=== PATIENT | female | born 1935 | race Caucasian/White ===

== ENCOUNTER → 2016-03-11 | Outpatient (REF) | payer MEDICARE ==
[~2016-03-11] MED LIST: /ESOM40CA OR; /WARF5TA OR; ACET65TA OR; ALBUTEROL INH; ALTA5CAP OR; AMLO10TA2 PO; ASPI81TA83 OR; COUM2.5T11 PO; IBUP600T OR; IBUP600T26 PO; LEVO100T OR; LEVO125T3 PO; LIDO5DIS36 TD; METF500T PO; METF500T4 OR; NORVASE PO; OXYBPOW OR; PERC5TAB6 PO; PERC5TAB8 OR; PERC7.5T8 OR; RAMI5CA PO; SING10TA31 OR; SYMB80AE IN; TYLE325T5 PO; XOPENEX; XOPENEX INH; nexium PO
[2016-03-11 18:28] LABS: PERCENT SATURATION 26.4 % (13.2-37.4)
== END ==
LOC: M LAB REF 16:29
PROVIDERS: ATTEND Internal Medicine
DX: R74.8 Abnormal levels of other serum enzymes (principal)

== ENCOUNTER 2017-08-20 19:57 | Inpatient (IN) | payer MEDICARE ==
[2017-08-20] MEDS: IPRATROPIUM 0.5MG/ALBUTEROL 2.5MG INH SOL UD 3ML (DUONEB)(J7620) NEB ×4 (17:59→20:00)
[2017-08-20 18:26] LABS: ABG BASE EXCESS 2.2 (-2.0-2.0); ABG PARTIAL PRESSURE O2 63.9 mmHg (75.0-100.0); ABG STANDARD HCO3 26.3 MEQ/L (22.0-26.0); ABG TOTAL CO2 27.1 MEQ/L (23.0-31.0); ABG pH (ARTERIAL) 7.464 UNITS (7.350-7.450)
[2017-08-20 18:47] LABS: BASO % 0.3 % (0.0-1.0); EOS # 0.1 10^3/uL (0.0-0.50); EOS % 1.8 % (0.0-3.0); HEMATOCRIT 31.5 % (36.0-47.0); HEMOGLOBIN 9.4 g/dl (12.0-15.5); LYMPH # 0.8 10^3/uL (1.5-4.5); LYMPH % 11.5 % (24.0-44.0); MEAN CORPUSCULAR HEMOGLOBIN 24.6 pg (27.0-33.0); MEAN CORPUSCULAR HGB CONC 29.8 g/dl (32.0-36.5); MEAN CORPUSCULAR VOLUME 82.5 fl (80.0-96.0); MONO # 0.6 10^3/uL (0.0-0.8); NEUTROPHILS # 5.5 10^3/uL (1.8-7.7); NEUTROPHILS % 76.4 % (36.0-66.0); PLATELET COUNT, AUTOMATED 115 10^3/uL (150-450); RED BLOOD COUNT 3.82 10^6/uL (4.00-5.40); RED CELL DISTRIBUTION WIDTH 16.9 % (11.5-14.5); WHITE BLOOD COUNT 7.2 10^3/uL (4.0-10.0)
[2017-08-20 18:57] LABS: ANION GAP 10 MEQ/L (8-16); BLOOD UREA NITROGEN 9 MG/DL (7-18); CALCIUM LEVEL 8.3 MG/DL (8.8-10.2); CARBON DIOXIDE LEVEL 28 MEQ/L (21-32); CHLORIDE LEVEL 101 MEQ/L (98-107); CPK CREATINE PHOSPHOKINASE 96 U/L (26-192); CREATININE FOR GFR 0.71 MG/DL (0.55-1.30); GLOMERULAR FILTRATION RATE > 60.0 (>32); GLUCOSE, FASTING 99 MG/DL (70-100); POTASSIUM SERUM 3.6 MEQ/L (3.5-5.1); SODIUM LEVEL 139 MEQ/L (136-145); TROPONIN I < 0.02 NG/ML (< 0.10)
[2017-08-20 18:58] LABS: CK-MB VALUE MASS 1.2 NG/ML (<3.6); MB/CK RELATIVE INDEX 1.25 (< OR =4); NT-PRO BNP 849 PG/ML (<450)
[2017-08-20 19:02] LABS: LACTIC ACID SEPSIS PROTOCOL 2.1 MMOL/L (0.4-2.0)
[2017-08-20] MEDS ORDERED: ACETAMINOPHEN TAB 650MG DOSE (2X325MG) PO (20:00)
[2017-08-20] MEDS ORDERED: IPRATROPIUM 0.5MG/ALBUTEROL 2.5MG INH SOL UD 3ML (DUONEB)(J7620) NEB (20:00)
[2017-08-20] MEDS ORDERED: PANTOPRAZOLE 40MG TAB (PROTONIX) PO (20:00)
[2017-08-20] MEDS ORDERED: DEXTROSE 50% 50 ML SYRINGE IV (20:15)
[2017-08-20] MEDS ORDERED: GLUCOSE 4 GM CHEW TABLET PO (20:15)
[2017-08-20] MEDS ORDERED: GLUCAGON FOR INJ 1 MG VIAL (J1610) SC (20:15)
[2017-08-20] MEDS: HumaLOG INSULIN (NovoLOG) PER UNIT SC (23:18)
[2017-08-20] MEDS: methylPREDNISolone INJ 40 MG/1 ML VIAL (J2920) IV (23:43)
[2017-08-20] MEDS: cefTRIAXone SOD 1 GM in D5W MINI-BAG PLUS 50 ML IV (23:45)
[2017-08-20] MEDS: SENOKOT S TAB PO (23:45)
[2017-08-20] MEDS: DOXYCYCLINE HYCLATE 100 MG TAB PO (23:45)
[2017-08-20] MEDS: AMITRIPTYLINE 25 MG TAB PO (23:45)
[2017-08-21] MEDS: LEVOTHYROXINE 150MCG TABLET (0.15MG) PO (05:38)
[2017-08-21] MEDS: methylPREDNISolone INJ 40 MG/1 ML VIAL (J2920) IV ×3 (05:38→20:09)
[2017-08-21 06:11] LABS: BEDSIDE GLUCOSE 175 MG/DL (83-110)
[2017-08-21] MEDS: amLODIPine 10 MG TAB PO (07:43)
[2017-08-21] MEDS: HumaLOG INSULIN (NovoLOG) PER UNIT SC ×4 (07:43→21:06)
[2017-08-21] MEDS: RAMIPRIL 5 MG CAP PO (07:43)
[2017-08-21] MEDS: ENOXAPARIN 40 MG/0.4 ML SYRINGE (J1650) SC (07:43)
[2017-08-21] MEDS: DOXYCYCLINE HYCLATE 100 MG TAB PO ×2 (07:43→20:09)
[2017-08-21] MEDS: SENOKOT S TAB PO ×2 (07:43→20:09)
[2017-08-21] MEDS: IPRATROPIUM 0.5MG/ALBUTEROL 2.5MG INH SOL UD 3ML (DUONEB)(J7620) NEB ×4 (08:46→20:14)
[2017-08-21 11:50] LABS: BEDSIDE GLUCOSE 170 MG/DL (83-110)
[2017-08-21 12:05] LABS: HEMATOCRIT 29.4 % (36.0-47.0); HEMOGLOBIN 8.8 g/dl (12.0-15.5); MEAN CORPUSCULAR HEMOGLOBIN 24.2 pg (27.0-33.0); MEAN CORPUSCULAR HGB CONC 29.9 g/dl (32.0-36.5); MEAN CORPUSCULAR VOLUME 80.8 fl (80.0-96.0); PLATELET COUNT, AUTOMATED 100 10^3/uL (150-450); RED BLOOD COUNT 3.64 10^6/uL (4.00-5.40); WHITE BLOOD COUNT 6.7 10^3/uL (4.0-10.0)
[2017-08-21 17:25] LABS: BEDSIDE GLUCOSE 170 MG/DL (83-110)
[2017-08-21] MEDS: AMITRIPTYLINE 25 MG TAB PO (20:09)
[2017-08-21] MEDS: cefTRIAXone SOD 1 GM in D5W MINI-BAG PLUS 50 ML IV (20:10)
[2017-08-21 21:01] LABS: BEDSIDE GLUCOSE 205 MG/DL (83-110)
[2017-08-22] MEDS: methylPREDNISolone INJ 40 MG/1 ML VIAL (J2920) IV ×3 (05:55→21:29)
[2017-08-22] MEDS: LEVOTHYROXINE 150MCG TABLET (0.15MG) PO (05:55)
[2017-08-22 06:24] LABS: HEMATOCRIT 27.6 % (36.0-47.0); HEMOGLOBIN 8.6 g/dl (12.0-15.5); MEAN CORPUSCULAR HEMOGLOBIN 24.6 pg (27.0-33.0); MEAN CORPUSCULAR HGB CONC 31.2 g/dl (32.0-36.5); MEAN CORPUSCULAR VOLUME 79.1 fl (80.0-96.0); PLATELET COUNT, AUTOMATED 107 10^3/uL (150-450); RED BLOOD COUNT 3.49 10^6/uL (4.00-5.40); RED CELL DISTRIBUTION WIDTH 17.2 % (11.5-14.5)
[2017-08-22 06:42] LABS: ANION GAP 11 MEQ/L (8-16); BLOOD UREA NITROGEN 14 MG/DL (7-18); CALCIUM LEVEL 8.5 MG/DL (8.8-10.2); CARBON DIOXIDE LEVEL 27 MEQ/L (21-32); CHLORIDE LEVEL 103 MEQ/L (98-107); CREATININE FOR GFR 0.83 MG/DL (0.55-1.30); GLOMERULAR FILTRATION RATE > 60.0 (>32); GLUCOSE, FASTING 148 MG/DL (70-100); POTASSIUM SERUM 3.5 MEQ/L (3.5-5.1); SODIUM LEVEL 141 MEQ/L (136-145)
[2017-08-22] MEDS: IPRATROPIUM 0.5MG/ALBUTEROL 2.5MG INH SOL UD 3ML (DUONEB)(J7620) NEB ×4 (07:10→19:15)
[2017-08-22] MEDS: DOXYCYCLINE HYCLATE 100 MG TAB PO ×2 (07:38→21:28)
[2017-08-22] MEDS: SENOKOT S TAB PO ×2 (07:38→21:28)
[2017-08-22] MEDS: amLODIPine 10 MG TAB PO (07:38)
[2017-08-22] MEDS: RAMIPRIL 5 MG CAP PO (07:38)
[2017-08-22] MEDS: ENOXAPARIN 40 MG/0.4 ML SYRINGE (J1650) SC (07:39)
[2017-08-22] MEDS: HumaLOG INSULIN (NovoLOG) PER UNIT SC ×4 (07:40→21:28)
[2017-08-22 11:59] LABS: BEDSIDE GLUCOSE 195 MG/DL (83-110)
[2017-08-22 17:00] LABS: BEDSIDE GLUCOSE 166 MG/DL (83-110)
[2017-08-22 20:47] LABS: BEDSIDE GLUCOSE 167 MG/DL (83-110)
[2017-08-22] MEDS: AMITRIPTYLINE 25 MG TAB PO (21:28)
[2017-08-22] MEDS: cefTRIAXone SOD 1 GM in D5W MINI-BAG PLUS 50 ML IV (21:29)
[2017-08-23] MEDS: methylPREDNISolone INJ 40 MG/1 ML VIAL (J2920) IV (05:27)
[2017-08-23] MEDS: LEVOTHYROXINE 150MCG TABLET (0.15MG) PO (05:27)
[2017-08-23 06:10] LABS: BEDSIDE GLUCOSE 183 MG/DL (83-110)
[2017-08-23 06:26] LABS: HEMATOCRIT 26.3 % (36.0-47.0); MEAN CORPUSCULAR HEMOGLOBIN 24.5 pg (27.0-33.0); MEAN CORPUSCULAR HGB CONC 30.4 g/dl (32.0-36.5); MEAN CORPUSCULAR VOLUME 80.4 fl (80.0-96.0); RED BLOOD COUNT 3.27 10^6/uL (4.00-5.40); RED CELL DISTRIBUTION WIDTH 17.2 % (11.5-14.5); WHITE BLOOD COUNT 7.2 10^3/uL (4.0-10.0)
[2017-08-23 06:42] LABS: ANION GAP 9 MEQ/L (8-16); BLOOD UREA NITROGEN 15 MG/DL (7-18); CALCIUM LEVEL 8.1 MG/DL (8.8-10.2); CARBON DIOXIDE LEVEL 27 MEQ/L (21-32); CHLORIDE LEVEL 106 MEQ/L (98-107); CREATININE FOR GFR 0.82 MG/DL (0.55-1.30); GLOMERULAR FILTRATION RATE > 60.0 (>32); GLUCOSE, FASTING 181 MG/DL (70-100); POTASSIUM SERUM 3.8 MEQ/L (3.5-5.1); SODIUM LEVEL 142 MEQ/L (136-145)
[2017-08-23 07:27] LABS: PLATELET COUNT, AUTOMATED 86 10^3/uL (150-450)
[2017-08-23] MEDS: IPRATROPIUM 0.5MG/ALBUTEROL 2.5MG INH SOL UD 3ML (DUONEB)(J7620) NEB ×2 (07:27→11:39)
[2017-08-23 07:28] LABS: IMMATURE PLATELET FRACTION % 13.1 % (0.0-9.6)
[2017-08-23] MEDS: HumaLOG INSULIN (NovoLOG) PER UNIT SC ×2 (08:06→12:21)
[2017-08-23] MEDS: DOXYCYCLINE HYCLATE 100 MG TAB PO (08:07)
[2017-08-23] MEDS: RAMIPRIL 5 MG CAP PO (08:07)
[2017-08-23] MEDS: amLODIPine 10 MG TAB PO (08:07)
[2017-08-23] MEDS: SENOKOT S TAB PO (08:07)
[2017-08-23 08:58] LABS: FERRITIN 12 NG/ML (8-252); IRON (FE) 16 UG/DL (50-170); TOTAL IRON BINDING CAPACITY 403 UG/DL (250-450)
[2017-08-23 11:28] LABS: BEDSIDE GLUCOSE 130 MG/DL (83-110)
[2017-08-23 12:13] LABS: HEMATOCRIT 28.5 % (36.0-47.0); HEMOGLOBIN 8.5 g/dl (12.0-15.5)
[2017-08-23] MEDS: FERROUS GLUCONATE 324 MG TAB PO (12:20)
[2017-08-23 12:44] LABS: VITAMIN B12 LEVEL 1172 PG/ML (247-911)
[2017-08-23 12:46] LABS: FOLATE 10.4 NG/ML (>5.4)
[2017-08-23] MEDS ORDERED: methylPREDNISolone INJ 40 MG/1 ML VIAL (J2920) IV (17:00)
== END 2017-08-23 15:37 | disposition home or self-care (01) | DRG 189 ==
LOC: M ED 19:57 → M ED INP 22:09 → M MSPAV 22:49
DX: J96.01 Acute respiratory failure with hypoxia (principal); J44.1 Chronic obstructive pulmonary disease with (acute) exacerbation; E87.2 Acidosis; K21.9 Gastro-esophageal reflux disease without esophagitis; E11.9 Type 2 diabetes mellitus without complications; I10 Essential (primary) hypertension; E03.9 Hypothyroidism, unspecified; D64.9 Anemia, unspecified; Z79.899 Other long term (current) drug therapy; Z88.8 Allergy status to other drugs, medicaments and biological substances; Z91.040 Latex allergy status; Z87.891 Personal history of nicotine dependence

== ENCOUNTER → 2017-10-07 | Outpatient (REF) | payer MEDICARE ==
[2017-10-07 18:48] LABS: IRON (FE) 342 UG/DL (50-170); PERCENT SATURATION 95.5 % (13.2-45.0); TOTAL IRON BINDING CAPACITY 358 UG/DL (250-450)
== END ==
LOC: M LAB REF 17:41
DX: D50.9 Iron deficiency anemia, unspecified (principal)
CPT/HCPCS: 83550

== ENCOUNTER 2017-10-26 07:35 | Day surgery (SDC) | payer MEDICARE ==
[2017-10-26] MEDS ORDERED: NS 1,000 ML IV (07:45)
[2017-10-26] MEDS ORDERED: PROPOFOL 200 MG/20 ML VIAL As Ordered (07:52)
[2017-10-26] MEDS ORDERED: LIDOCAINE 2% INJ 100 MG/5 ML SDV (FOR ANES.) As Ordered (07:54)
== END 2017-10-26 10:01 | disposition home or self-care (01) ==
LOC: M OPP 07:35
DX: K64.0 First degree hemorrhoids (principal); D12.0 Benign neoplasm of cecum; K57.30 Diverticulosis of large intestine without perforation or abscess without bleeding; D50.9 Iron deficiency anemia, unspecified; K22.8 Other specified diseases of esophagus; K31.89 Other diseases of stomach and duodenum; J44.9 Chronic obstructive pulmonary disease, unspecified; K21.9 Gastro-esophageal reflux disease without esophagitis; I10 Essential (primary) hypertension; R01.1 Cardiac murmur, unspecified; K62.5 Hemorrhage of anus and rectum; E03.9 Hypothyroidism, unspecified; E11.9 Type 2 diabetes mellitus without complications; M54.5 Low back pain; Z79.899 Other long term (current) drug therapy; Z79.84 Long term (current) use of oral hypoglycemic drugs; Z88.8 Allergy status to other drugs, medicaments and biological substances; Z96.653 Presence of artificial knee joint, bilateral; Z90.710 Acquired absence of both cervix and uterus; Z87.891 Personal history of nicotine dependence; Z87.448 Personal history of other diseases of urinary system
CPT/HCPCS: 45380

== ENCOUNTER 2018-06-15 06:10 | Day surgery (SDC) | payer MEDICARE ==
[~2018-06-15] VITALS: Ht 160 cm; Wt 92.5 kg
[~2018-06-15 06:10] MED LIST changes: -/ESOM40CA OR; -/WARF5TA OR; +ACETAMINOPHEN 325 MG TAB PO PRN; +ACID1CAP5 PO; +AMIT25TA PO; -AMLO10TA2 PO; +AMLO10TA5 PO; +ATOR1TAB19 PO; +COUM1TAB17 OR; -COUM2.5T11 PO; +COUM2.5T17 PO; +DOXY100T PO; +FERR32TA PO; +IBUP-1022 PO; -IBUP600T26 PO; +LEVO112T2 PO; -LEVO125T3 PO; +LEVO125T4 PO; +LEVO150T7 PO; -LIDO5DIS36 TD; +LIDO5DIS41 TD; -METF500T PO; +METF500T13 PO; +MYRB25TA PO; +NEXI1CAP3 OR; +NEXI40CA PO; +PERC5TAB12 PO; -PERC5TAB6 PO; +PRED10TA2 PO; +RAMI1CAP24 PO; -RAMI5CA PO; +VENTAER INH
[2018-06-15] MEDS ORDERED: LIDOCAINE 2% W/EPIN INJ 20ML **PRES FREE As Ordered ONE (06:39)
[2018-06-15] MEDS ORDERED: SODIUM BICARBONATE 8.4% INJ 50MEQ 50 ML VIAL As Ordered ONE (06:40)
[2018-06-15] MEDS ORDERED: TOBRADEX OPHTH OINT 3.5 GM As Ordered ONE (06:40)
[2018-06-15] MEDS ORDERED: MIDAZOLAM INJ 2 MG/2 ML VIAL (J2250) As Ordered ONE (07:00)
[2018-06-15] MEDS ORDERED: LIDOCAINE 3.5 % 1ML OPHTH TOPICAL GEL OU ONE (07:00)
[2018-06-15] MEDS ORDERED: fentaNYL 100 MCG/2 ML INJECTION (J3010) As Ordered ONE (07:01)
[2018-06-15] MEDS ORDERED: POVIDONE-IODINE 5% OPHTH PREP SOL 30ML As Ordered ONE (07:24)
[2018-06-15] MEDS ORDERED: TRIMETHOBENZAMIDE 300 MG CAP PO PRN (09:00)
[2018-06-15 09:24] VITALS: BP 147/67
--- NOTE | 2018-07-06 06:48 | RO ---
DATE OF PROCEDURE: 06/15/2018 PREOPERATIVE DIAGNOSIS: Dermatochalasis both upper lids. POSTOPERATIVE DIAGNOSIS: Dermatochalasis both upper lids. PROCEDURE: Blepharoplasty both upper lids. SURGEON: Dr. Austin Rashid FLORAL DESIGN TEACHER: None. ANESTHESIA: Local, IV standby. COMPLICATIONS: None. INDICATION: Heavy lids interfering with daily activities. DESCRIPTION OF PROCEDURE: The patient was brought to the operating room and laid in supine position. Upper face was prepped and draped in a sterile fashion for bilateral upper lid surgery. Both upper lids were then marked with the help of a sterile marker along the lines of intended skin excision. Both upper lids were then infiltrated with 2% lidocaine with 1:100,000 epinephrine. Attention was first diverted to the right eye where the premarked skin was excised using electrocautery and Kelsi scissors. Hemostasis was obtained as needed with the help of electrocautery. Deeper dissection was carried out and medial and lateral fat pads were isolated and then excised. Their stump was cauterized. The skin was then closed using #6-0 nylon suture. The exact same procedure was repeated for the left upper lid. At the end of the case, TobraDex ointment was applied and ice packs were applied and the patient was returned to the recovery room where detailed postoperative instructions were given.
== END 2018-06-15 09:30 | disposition home or self-care (01) ==
LOC: M SDC 06:10 → EEVIPCON 07:30 → M SDC 09:30
PROVIDERS: ATTEND Ophthalmology
DX: H02.831 Dermatochalasis of right upper eyelid (principal); H02.834 Dermatochalasis of left upper eyelid; I10 Essential (primary) hypertension; E11.42 Type 2 diabetes mellitus with diabetic polyneuropathy; K21.9 Gastro-esophageal reflux disease without esophagitis; J44.9 Chronic obstructive pulmonary disease, unspecified; J96.11 Chronic respiratory failure with hypoxia; D50.9 Iron deficiency anemia, unspecified; E03.9 Hypothyroidism, unspecified; R01.1 Cardiac murmur, unspecified; I35.0 Nonrheumatic aortic (valve) stenosis; M12.9 Arthropathy, unspecified; M54.5 Low back pain; J45.909 Unspecified asthma, uncomplicated; E66.01 Morbid (severe) obesity due to excess calories; Z68.41 Body mass index [BMI] 40.0-44.9, adult; Z88.1 Allergy status to other antibiotic agents; Z91.040 Latex allergy status; Z79.899 Other long term (current) drug therapy; Z79.84 Long term (current) use of oral hypoglycemic drugs; Z96.653 Presence of artificial knee joint, bilateral; Z99.81 Dependence on supplemental oxygen; Z90.710 Acquired absence of both cervix and uterus; Z78.0 Asymptomatic menopausal state; Z96.1 Presence of intraocular lens; Z98.41 Cataract extraction status, right eye; Z98.42 Cataract extraction status, left eye
CPT/HCPCS: 15823; 88302; J2250; J3010

== ENCOUNTER 2019-02-15 14:44 | Emergency (ER) | payer MEDICARE ==
[~2019-02-15] VITALS: Ht 160 cm; Wt 90.9 kg
[~2019-02-15 14:44] MED LIST changes: -ACETAMINOPHEN 325 MG TAB PO PRN
[2019-02-15] MEDS ORDERED: ALBUTEROL SULFATE 2.5 MG/0.5 ML INH NEB SOLN INH ONE (15:15)
[2019-02-15] MEDS ORDERED: methylPREDNISolone INJ 125 MG/2 ML VIAL (J2930) IV ONE (15:15)
[2019-02-15] MEDS ORDERED: ONDANSETRON 4MG/2ML VIAL (J2405) IV ONE ×2 (15:15→16:15)
[2019-02-15] MEDS ORDERED: NS 1,000 ML IV ONE (15:15)
[2019-02-15] MEDS ORDERED: IPRATROPIUM 0.5MG/ALBUTEROL 2.5MG INH SOL UD 3ML (DUONEB)(J7620) NEB ONE (15:15)
--- NOTE | 2019-02-15 15:31 | REP ---
Clinical: Shortness of breath . Comparison: 07/29/2017 . Findings: The mediastinum and cardiac silhouette are stable and within normal limits for portable technique. The lung shields are clear without acute consolidation, effusion, or pneumothorax. Skeletal structures are intact. Impression: No acute cardiopulmonary process appreciated. Electronically Signed by Kahlil Cabrera MD 02/15/2019 03:23 P
[2019-02-15 16:18] LABS: BASO % 0.2 % (0.0-1.0); EOS % 0.2 % (0.0-3.0); HEMATOCRIT 31.9 % (36.0-47.0); HEMOGLOBIN 9.9 g/dl (12.0-15.5); LYMPH # 1.3 10^3/uL (1.5-5.0); LYMPH % 12.8 % (24.0-44.0); MEAN CORPUSCULAR HEMOGLOBIN 31.2 pg (27.0-33.0); MEAN CORPUSCULAR VOLUME 100.6 fl (80.0-96.0); MONO % 10.5 % (0.0-5.0); NEUTROPHILS # 7.4 10^3/uL (1.5-8.5); NEUTROPHILS % 75.6 % (36.0-66.0); RED BLOOD COUNT 3.17 10^6/uL (4.00-5.40); WHITE BLOOD COUNT 9.7 10^3/uL (4.0-10.0)
[2019-02-15 16:21] LABS: PLATELET COUNT, AUTOMATED 92 10^3/uL (150-450)
[2019-02-15] MEDS ORDERED: ISOVUE-370 76% 100ML VIAL (Q9967) As Ordered ONE (16:22)
[2019-02-15 16:29] LABS: INR 1.48; PROTHROMBIN TIME 17.6 SECONDS (11.8-14.0)
[2019-02-15 16:30] LABS: PARTIAL THROMBOPLASTIN TIME 31.5 SECONDS (25.0-38.4)
[2019-02-15 16:43] LABS: ALBUMIN 2.4 GM/DL (3.2-5.2); ALT/SGPT 32 U/L (12-78); AMYLASE 30 U/L (25-115); BILIRUBIN,DIRECT 1.1 MG/DL (0.0-0.2); BILIRUBIN,TOTAL 2.4 MG/DL (0.2-1.0); CK-MB VALUE MASS 1.7 NG/ML (<3.6); CPK CREATINE PHOSPHOKINASE 91 U/L (26-192); LIPASE 72 U/L (73-393); MB/CK RELATIVE INDEX 1.87 (< OR =4); TOTAL PROTEIN 6.3 GM/DL (6.4-8.2); TROPONIN I < 0.02 NG/ML (< 0.10)
[2019-02-15] MEDS ORDERED: PANTOPRAZOLE 40MG INJ (PROTONIX) (C9113) IV ONE (16:45)
[2019-02-15] MEDS ORDERED: SYNT125T PO (16:58)
[2019-02-15] MEDS ORDERED: MYRB25TA PO (16:58)
[2019-02-15] MEDS ORDERED: AMIT25TA PO (16:58)
--- NOTE | 2019-02-15 16:59 | REP ---
Clinical: Abdominal pain with nausea. Technique: Axial contrast enhanced images from the lung bases to the pubic symphysis using 100 ml Isovue 370 intravenous contrast material coronal and sagittal re-formations. Comparison: None. Findings: Nodular liver contour with small amount of perihepatic fluid is consistent with cirrhosis. Spleen, pancreas, bilateral adrenal glands and kidneys are normal. Evidence of prior cholecystectomy. Evaluation of the enteric system demonstrates mucosal thickening to the sigmoid colon suggesting infectious/inflammatory colitis and correlation is recommended. No bowel obstruction. No free air to suggest perforation. Normal terminal ileum and appendix are identified in the right lower quadrant. Pelvis demonstrates normal bladder and evidence of prior hysterectomy. No adenopathy. Atherosclerotic changes of the aorta and vasculature noted without aneurysm or dissection. Musculoskeletal structures demonstrate degenerative changes. Lung bases are clear. Impression: 1. Mucosal thickening to the sigmoid colon and small amount of ascites suggesting infectious/inflammatory colitis and correlation is recommended. 2. Cirrhosis and evidence for early portal venous hypertension. Electronically Signed by Kahlil Cabrera MD 02/15/2019 04:50 P
[2019-02-15] MEDS ORDERED: NS 500 ML IV ONE (17:00)
[2019-02-15] MEDS ORDERED: OCTREOTIDE ACETATE 1,200 MCG in NS 238.8 ML IV SCH (17:15)
[2019-02-15] MEDS: PANTOPRAZOLE SODIUM 40 MG in D5W 50 ML IV SCH ×2 (17:56→17:58)
[2019-02-15 18:30] VITALS: BP 127/51
--- NOTE | 2019-02-15 19:44 | ECGEPIP ---
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
== END 2019-02-15 18:40 | disposition short-term general hospital (02) ==
LOC: EDBD 14:44 → M ED 14:44
DX: K92.2 Gastrointestinal hemorrhage, unspecified (principal); K74.60 Unspecified cirrhosis of liver; R19.7 Diarrhea, unspecified; E11.9 Type 2 diabetes mellitus without complications; I10 Essential (primary) hypertension; J44.9 Chronic obstructive pulmonary disease, unspecified; R00.0 Tachycardia, unspecified; Z79.51 Long term (current) use of inhaled steroids; Z79.84 Long term (current) use of oral hypoglycemic drugs; Z79.899 Other long term (current) drug therapy; Z87.891 Personal history of nicotine dependence; Z88.1 Allergy status to other antibiotic agents; Z91.040 Latex allergy status
CPT/HCPCS: 71045; 74177; 80047; 80076; 82150; 82550; 82553; 83605; 83690; 84484; 85025; 85049; 85055; 85610; 85730; 86850; 86900; 86901; 87040; 93005; 93041; 94640; 96374; 96375; 99285; C9113; J2354; J2405; J2930; Q9967

== ENCOUNTER 2019-02-23 08:13 | Emergency (ER) | payer MEDICARE ==
[~2019-02-23 08:13] MED LIST changes: +SYNT125T PO
[2019-02-23] MEDS ORDERED: OMEP-221 PO (08:36)
[2019-02-23] MEDS ORDERED: AMOX875T2 PO (08:36)
[2019-02-23] MEDS ORDERED: LACT10SO3 PO (08:36)
[2019-02-23 09:03] LABS: BASO % 0.2 % (0.0-1.0); EOS # 0.1 10^3/uL (0.0-0.5); HEMATOCRIT 27.5 % (36.0-47.0); HEMOGLOBIN 8.3 g/dl (12.0-15.5); LYMPH # 0.9 10^3/uL (1.5-5.0); LYMPH % 21.9 % (24.0-44.0); MEAN CORPUSCULAR HEMOGLOBIN 30.4 pg (27.0-33.0); MEAN CORPUSCULAR HGB CONC 30.2 g/dl (32.0-36.5); MEAN CORPUSCULAR VOLUME 100.7 fl (80.0-96.0); MONO # 0.7 10^3/uL (0.0-0.8); MONO % 16.7 % (0.0-5.0); NEUTROPHILS # 2.4 10^3/uL (1.5-8.5); NEUTROPHILS % 58.7 % (36.0-66.0); RED BLOOD COUNT 2.73 10^6/uL (4.00-5.40); WHITE BLOOD COUNT 4.1 10^3/uL (4.0-10.0)
[2019-02-23 09:11] LABS: BLOOD UREA NITROGEN 9 MG/DL (7-18); CALCIUM LEVEL 8.4 MG/DL (8.8-10.2); CARBON DIOXIDE LEVEL 20 MEQ/L (21-32); CHLORIDE LEVEL 109 MEQ/L (98-107); CREATININE FOR GFR 0.85 MG/DL (0.55-1.30); GLOMERULAR FILTRATION RATE > 60.0 (>32); GLUCOSE, FASTING 92 MG/DL (70-100); POTASSIUM SERUM 3.6 MEQ/L (3.5-5.1); SODIUM LEVEL 141 MEQ/L (136-145)
[2019-02-23] MEDS: IPRATROPIUM 0.5MG/ALBUTEROL 2.5MG INH SOL UD 3ML (DUONEB)(J7620) NEB SCH ×3 (09:30→12:16)
--- NOTE | 2019-02-23 09:48 | REP ---
Clinical: Dyspnea. Technique: PA and lateral. Comparison: 02/10 and 07/10. Findings: Increased markings suggest the possibility of bronchitis / viral pneumonia along with small basilar pleural reactions. Mediastinum and cardiac silhouette normal. No pneumothorax. Skeletal structures intact. Impression: Cannot exclude bronchitis and small pleural reactions. Electronically Signed by Kahlil Cabrera MD 02/23/2019 09:39 A
[2019-02-23 10:00] LABS: PLATELET COUNT, AUTOMATED 53 10^3/uL (150-450)
[2019-02-23 10:29] LABS: INFLUENZA A AMPLIFICATION NEGATIVE (NEGATIVE); INFLUENZA B AMPLIFICATION NEGATIVE (NEGATIVE)
[2019-02-23 10:51] LABS: CK-MB VALUE MASS 7.5 NG/ML (<3.6); CPK CREATINE PHOSPHOKINASE 134 U/L (26-192); NT-PRO BNP 806 PG/ML (<450); TROPONIN I 1.32 NG/ML (< 0.10)
[2019-02-23 12:37] LABS: CK-MB VALUE MASS 9.1 NG/ML (<3.6); MB/CK RELATIVE INDEX 6.55 (< OR =4)
[2019-02-23 13:45] VITALS: BP 146/65
--- NOTE | 2019-02-24 14:23 | ECGEPIP ---
[facility] - ED Test Date: 2019-02-23 Pat Name: EDWARD GALVAN Department: Room: - Gender: Female Post Closer: SHON : 1935 Requested By: Curt Loza Order Number: [id number] Reading MD: Artem Dowell Measurements Intervals [place] Rate: 78 P: -24 [place]: 152 QRS: -17 QRSD: 82 T: 29 QT: 392 QTc: 448 Interpretive Statements SINUS RHYTHM WITH SINUS ARRHYTHMIA Low QRS complex voltage in the precordial leads Subtle ST-T wave abnormalities when compared to tracing done 02-15-19 Electronically Signed on 02-24-2019 14:23:40 EST by Artem Dowell
--- NOTE | 2019-02-24 14:45 | ECGEPIP ---
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
== END 2019-02-23 13:55 | disposition short-term general hospital (02) ==
LOC: M ED 08:13 → EDBD 08:13 → M ED 13:55
DX: I21.4 Non-ST elevation (NSTEMI) myocardial infarction (principal); E11.9 Type 2 diabetes mellitus without complications; I10 Essential (primary) hypertension; J44.9 Chronic obstructive pulmonary disease, unspecified; E07.9 Disorder of thyroid, unspecified; K21.9 Gastro-esophageal reflux disease without esophagitis; D50.9 Iron deficiency anemia, unspecified; K74.60 Unspecified cirrhosis of liver; Z99.81 Dependence on supplemental oxygen; Z79.899 Other long term (current) drug therapy; Z79.890 Hormone replacement therapy; Z88.1 Allergy status to other antibiotic agents; Z91.040 Latex allergy status; F17.210 Nicotine dependence, cigarettes, uncomplicated

== ENCOUNTER 2019-03-22 19:10 | Inpatient (IN) | payer MEDICARE ==
[~2019-03-22] VITALS: Ht 160 cm; Wt 93.6 kg
[~2019-03-22 19:10] MED LIST changes: +AMOX875T2 PO; +LACT10SO3 PO; +OMEP-221 PO
[2019-03-22] MEDS ORDERED: ASPI81TA26 (19:30)
[2019-03-22] MEDS ORDERED: METO1TAB87 PO (19:30)
[2019-03-22] MEDS ORDERED: XIFA550T PO ×2 (19:30→23:29)
--- NOTE | 2019-03-22 20:42 | REPVR ---
PROCEDURE INFORMATION: Exam: CT Head Without Contrast Exam date and time: 03/22/2019 8:24 PM Age: 84 years old Clinical indication: Syncope and collapse TECHNIQUE: Imaging protocol: Computed tomography of the head without contrast. Radiation optimization: All CT scans at this facility use at least one of these dose optimization techniques: automated exposure control; mA and/or kV adjustment per patient size (includes targeted exams where dose is matched to clinical indication); or iterative reconstruction. COMPARISON: No relevant prior studies available. FINDINGS: Brain: Bilateral basal ganglia calcifications. The lamar-white differentiation is maintained. No hemorrhage. No edema.There are mild periventricular and subcortical lucencies consistent with chronic microvascular ischemic changes. Ventricles: Ventricles and sulci are prominent consistent with age appropriate parenchymal volume loss. Bones/joints: Unremarkable. No acute fracture. Sinuses: Visualized sinuses are unremarkable. No fluid levels. Mastoid air cells: Visualized mastoid air cells are well aerated. Orbits: Bilateral cataract surgery. Soft tissues: Unremarkable. IMPRESSION: No acute intracranial abnormality. Chronic microvascular ischemic changes. Electronically signed by: Serafin Velásquez On 03/22/2019 20:42:21 PM
[2019-03-22 21:05] LABS: LYMPH # 0.3 10^3/uL (1.5-5.0); LYMPH % 7.1 % (24.0-44.0); MEAN CORPUSCULAR HEMOGLOBIN 27.3 pg (27.0-33.0); MEAN CORPUSCULAR VOLUME 94.1 fl (80.0-96.0); MONO # 0.2 10^3/uL (0.0-0.8); MONO % 4.8 % (0.0-5.0); NEUTROPHILS # 3.5 10^3/uL (1.5-8.5); NEUTROPHILS % 87.6 % (36.0-66.0); WHITE BLOOD COUNT 3.9 10^3/uL (4.0-10.0)
[2019-03-22 21:12] LABS: HEMATOCRIT 20.7 % (36.0-47.0); PLATELET COUNT, AUTOMATED 51 10^3/uL (150-450)
[2019-03-22 21:36] LABS: BLOOD UREA NITROGEN 13 MG/DL (7-18); CARBON DIOXIDE LEVEL 25 MEQ/L (21-32); CHLORIDE LEVEL 107 MEQ/L (98-107); CK-MB VALUE MASS 1.2 NG/ML (<3.6); CPK CREATINE PHOSPHOKINASE 83 U/L (26-192); CREATININE FOR GFR 0.88 MG/DL (0.55-1.30); GLOMERULAR FILTRATION RATE > 60.0 (>32); GLUCOSE, FASTING 150 MG/DL (70-100); MB/CK RELATIVE INDEX 1.45 (< OR =4); POTASSIUM SERUM 3.2 MEQ/L (3.5-5.1); SODIUM LEVEL 139 MEQ/L (136-145); THYROID STIMULATING HORMONE 0.096 uIU/ML (0.358-3.740); TROPONIN I 0.03 NG/ML (< 0.10)
[2019-03-22 21:48] LABS: INR 1.37; PROTHROMBIN TIME 16.6 SECONDS (11.8-14.0)
[2019-03-22 21:49] LABS: PARTIAL THROMBOPLASTIN TIME 36.2 SECONDS (25.0-38.4)
[2019-03-22] MEDS ORDERED: ASPI-161 PO (23:29)
[2019-03-22] MEDS ORDERED: INCR1INH INH (23:29)
[2019-03-22] MEDS ORDERED: OMEP-221 PO (23:29)
[2019-03-22] MEDS ORDERED: ALBU83IN INH (23:29)
--- NOTE | 2019-03-22 23:58 | IPNPDOC ---
Text Note Date of Service The patient was seen on 03/22/19. NOTE I examined the patient on Mar 22 at 1157PM. VS,Tessy, I+O VS, Phie, I+O Laboratory Tests 03/22/19 20:53 Vital Signs Date Time Temp Pulse Resp B/P (MAP) Pulse Ox O2 Delivery O2 Flow Rate FiO2 03/22/19 23:10 92 03/22/19 23:09 136/61 (86) 03/22/19 22:55 20 95 Nasal Cannula 3.0 03/22/19 19:23 97.8 PAVAN CHAVEZ MD Mar 22, 2019 23:58
[2019-03-23] VITALS (16 sets, daily range): BP systolic 119–155; BP diastolic 57–83
[2019-03-23 00:44] LABS: MAGNESIUM LEVEL 1.5 MG/DL (1.8-2.4)
[2019-03-23] MEDS ORDERED: ALBUTEROL SULFATE 2.5 MG/0.5 ML INH NEB SOLN INH PRN (00:45)
[2019-03-23] MEDS ORDERED: ALBUTEROL 90 MCG/ACT 8GM HFA INHALER INH PRN (00:45)
[2019-03-23 01:00] LABS: FERRITIN 18 NG/ML (8-252); IRON (FE) 23 UG/DL (50-170); PERCENT SATURATION 6.7 % (13.2-45.0); TOTAL IRON BINDING CAPACITY 345 UG/DL (250-450)
[2019-03-23] MEDS ORDERED: POTASSIUM CHLORIDE 10 MEQ SR TABLET PO ONE (01:00)
[2019-03-23] MEDS: KCL 10MEQ/100ML SWI (KRUN) 10 MEQ in IV 1 EA IV SCH ×2 (01:52→03:04)
[2019-03-23] MEDS: ATORVASTATIN 10 MG TAB PO SCH ×2 (01:52→20:57)
[2019-03-23] MEDS: AMITRIPTYLINE 25 MG TAB PO SCH ×2 (02:11→20:57)
--- NOTE | 2019-03-23 03:59 | HPEPDOC ---
[facility] Medical History & Physical Date of Admission Mar 22, 2019 Date of Service: Mar 22, 2019 Primary Care Physician: Jr Barrow Collins Attending Physician: PAVAN CHAVEZ MD History and Physical CHIEF COMPLAINT: Shortness of breath HISTORY OF PRESENT ILLNESS: Marielena is a 84-year-old female with past medical history of NSTEMI four weeks ago (02/23/19), GI bleed last month (02/15/19), liver cirrhosis, COPD, type 2 diabetes, hypertension, and hypothyroidism who presented to the emergency department this evening via EMS with the chief complaints of shortness of breath, vomiting and dizziness. Patient has experienced exertional dyspnea for the past 4-5 days, and yesterday, developed dizziness and intermittent diplopia while at rest. She has had 2 episodes of vomiting today while in route to the ED, but is unsure if there is any hematemesis or coffee ground emesis since it was dark in the ambulance and she did not examine the vomit. Patient also fell around 6 PM this evening while at home, landing initially onto her right forehead and elbow. She is unsure if she lost consciousness. Patient has been hypotensive today, with SBPs in the 80s. She also has accompanying sternal chest pressure that is exacerbated with minimal movement. She endorses recent black-colored stools. She is not on any anticoagulation medication, but does take an 81 mg daily, aspirin for antiplatelet coverage after being treated for the NSTEMI at [facility], [place], operated by [facility] this month. She is postmenopausal and denies any recent vaginal bleeding or hematuria. Around the time of her GI bleed and nstemi, she admits to a diminished appetite, but has returned to a full diet since. She denies having these symptoms at any time previously. Patient was extensively worked up at [facility] for GI bleed from and was in the process of establishing with gastroenterology (Dr. Rico) as outpatient. She is also setting up with cardiology as outpatient (Dr. Carpenter's office) because of the recent nstemi. At the time of her discharge from [facility], [place], operated by [facility] this month, she had significant changes made to her medication regimen: Amlodipine was stopped, metoprolol tartrate 12.5 mg twice a day was started, albuterol nebulizer was started, and the 81 mg daily. Aspirin was also started. In the emergency department, patient was found to be pancytopenic (WBC 3.9, Hgb 6.0, PLT 51) with hypokalemia. Cardiac markers were unremarkable, two-view chest x-ray showed some platelike atelectasis and mild fluid in the lower left lobe. CT head without contrast showed no acute pathology. Patient was subsequently admitted under the care of the hospitalist team for symptomatic anemia in the presence of pancytopenia and 2 units of PRBCs were ordered to be transfused. Patient's primary care physician is Dr. Hector Barrow Jr. Patient verbalizes that her CODE STATUS is full cardiac resuscitation with DNI. Patient was accompanied by her [id number] Carol. REVIEW OF SYSTEMS: CONSTITUTIONAL: Denies fever, chills, night sweats. HEENT: Endorses recent intermittent diplopia. CARDIOVASCULAR: Endorses recent intermittent sternal chest pressure, that's worsens with minimal movement; denies chest pain or palpitations. RESPIRATORY:. Endorses exertional dyspnea over the past few days with mild shortness of breath at time of exam; denies cough or pleuritic chest pain. GASTROINTESTINAL: Endorses recent melena and 2 episodes of vomiting today; denies abdominal pain, constipation, or diarrhea. GENITOURINARY: Denies dysuria or hematuria. NEUROLOGICAL: Endorses recent dizziness with possible loss of consciousness on fall earlier today; endorses slight headache at time of exam ENDOCRINE: Endorses chronic mild cold intolerance HEMATOLOGIC/LYMPHATIC: Eyes easy bleeding or bruising. PAST MEDICAL HISTORY: GI bleed, January 2019 NSTEMI, 02/23/19 Liver cirrhosis COPD Type 2 diabetes Hypertension Hypothyroidism Asthma GERD PAST SURGICAL HISTORY: Hysterectomy Appendectomy. Cholecystectomy. Bilateral cataract surgery. Surgical bladder reconstruction, 1999. Bilateral total knee arthroplasties SOCIAL HISTORY: Patient lives alone in an apartment but resides next door to her son and [id number]. Patient has a significant history of alcohol use. While she has not had anything to drink since being hospitalized for the GI bleed at [place], prior to that, she consumed about 4 glasses of vodka or 2 glasses of wine per night. She is a former cigarette smoker, having quit approximately 25 years ago. Prior to quitting, she smoked .5-1ppd for about 30 years She denies current or former legal drug use. FAMILY HISTORY: Gastric cancer (father) Liver cirrhosis (mother) ALLERGIES: Please see below. HOME MEDICATIONS: Please see below. PHYSICAL EXAMINATION: VITAL SIGNS: Please see below GENERAL APPEARANCE: Elderly female who appears stated age. She appears somewhat pale. She is lying comfortably in bed at time of exam, in no apparent acute distress, and with 2 L O2 NC. Alert and oriented 3. HEENT: There is a roughly 2 cm diameter bruise to her right forehead. There also appears to be some petechiae over the right side of the neck. Normocephalic. Erythema of the left eye's lateral sclera. Anicteric sclera. Conjunctival pallor. No cervical or supraclavicular lymphadenopathy appreciated.. Trachea is midline. CARDIOVASCULAR: 2/6 systolic murmur heard best at the right parasternal second intercostal space. Regular rate. S1, S2 auscultated. Adequate capillary refill. No JVD appreciated. LUNGS: Breathing on 2L NC O2. Moderately diminished tidal volume. Cough is elicited when attempting deeper breaths. Left lung crackles most prominent in the base ABDOMEN:, Obese, soft. Nondistended. Nontender. Hypoactive bowel sounds. No palpable masses appreciated. EXTREMITIES: No lower extremity edema. 2+ radial and dorsalis pedis pulses bilaterally. There is a small area of ecchymosis overlying the right elbow. NEUROLOGICAL: Awake, alert and oriented 3. No focal neurological deficits appreciated. Responds appropriately to questions and commands. PSYCHIATRIC:. Mood and affect appear appropriate. LABORATORY DATA: Please see below. IMAGING: Two-view chest x-ray, 03/22/19: Official read is not in. There appears to be plate-like atelectasis of the left lobe with some mild fluid buildup in the left costophrenic angle. CT head without contrast, 03/22/19: No acute intracranial abnormality. Chronic microvascular ischemic changes. MICROBIOLOGY: Please see below. ASSESSMENT & PLAN: This is an 84-year-old female with history of GI bleed (late January 2019), nstemi (02/23/19), liver cirrhosis, COPD, hypertension, type 2 diabetes, hypothyroidism who presented to the emergency department via EMS with 4-5 days of exertional dyspnea and 1-2 days of dizziness and vomiting. She was found to be pancytopenic and hypokalemic in the ED. She was admitted with the chief diagnosis of symptomatic anemia in the presence of pancytopenia. #Pancytopenia -WBC 3.9, Hgb 6.0, PLT 51 -Likely contributing etiologies of liver cirrhosis vs GI bleed vs poor nutritional intake/nutritional disorders vs bone marrow pathology/malignancy vs viral illness angel -Consent for blood obtained and 2 units PRBCs ordered, will aim to keep her Hg >8 bc of recent ID 7 aim to keep the plts # > 50 -Iron panel and reticulocyte studies ordered -Peripheral smear ordered -Absolute reticulocyte count = 2.4 with reticulocyte index 1.18; *reticulocyte index less than 2 indicates hypoproliferation -Repeat CBC and CMP ordered -Goal Hgb >8 in setting of patient's recent ID -follow up stool occult and stool H pylori -for suspected upper GI bleed bc of melena will order PPI, Octreotide and Ciprofloxacin -IVF ordered -Thrombocytopenia likely secondary to cirrhosis; *consider PLT transfusion if PLT < 50 in preparation of endoscopic procedure -Leukopenia likely secondary to cirrhosis -Upon discharge, will need to remain on PPI d/t home NSAID use (81mg ASA) -Gastroenterology consult made for EGD / C-scope -Currently on clear liquid diet #Recent NSTEMI, 02/23/19 -Telemetry ordered -Home 81mg daily ASA continued due to recency of nstemi #Hypokalemia -K+ 3.2 -Telemetry ordered -Likely secondary to liver cirrhosis and poor nutritional intake -PO and IV KCl replenishment ordered #Hypomagnesemia -Mg 1.5 -Mag sulfate replenishment ordered #Liver cirrhosis -follow up albumin to calculate MELD Score -Continue with home rifaximin -Avoid hepatotoxic drugs -Repeat CMP ordered -[facility] protocol placed d/t alcohol use history; pt denies any EtOH since XMas though #Type 2 diabetes -Home medications held -sliding-scale insulin -FSBS q6h #COPD -Home medications continued -02 titration 88-92% #Hypothyroidism -TSH 0.096 -Home levothyroxine continued #Hypertension -Home medications continued #GERD -IV protonix #DVT prophylaxis: In the setting of anemia, Teds and sequentials were ordered DISPO: home after more than 2 midnight stays Vital Signs Vital Signs Date Time Temp Pulse Resp B/P (MAP) Pulse Ox O2 Delivery O2 Flow Rate FiO2 03/23/19 03:40 97.7 93 18 135/61 98 Nasal Cannula 3.0 Laboratory Data Labs 24H Laboratory Tests 2 03/22/19 19:56: Bedside Glucose (Misc Panel) 148H 03/22/19 20:53: Immature Granulocyte % (Auto) 0.5, Neutrophils (%) (Auto) 87.6H, Lymphocytes (%) (Auto) 7.1L, Monocytes (%) (Auto) 4.8, Eosinophils (%) (Auto) 0.0, Basophils (%) (Auto) 0.0, Neutrophils # (Auto) 3.5, Lymphocytes # (Auto) 0.3L, Monocytes # (Auto) 0.2, Eosinophils # (Auto) 0.0, Basophils # (Auto) 0.0, Reticulocyte # (auto) 105.0H, Nucleated Red Blood Cells % (auto) 0.0, Immature Platelet Fraction 7.2, Percent Reticulocyte Count 4.8H, Reticulocyte Hemoglobin Equivalent 25.4, Prothrombin Time 16.6H, Prothromb Time International Ratio 1.37, Activated Partial Thromboplast Time 36.2, Anion Gap 7L, Glomerular Filtration Rate > 60.0, Calcium Level 8.0L, Magnesium Level 1.5L, Iron Level 23L, Total Iron Binding Capacity 345, Transferrin % Saturation 6.7L, Ferritin 18, Total Creatine Kinase 83, Creatine Kinase MB 1.2, Creatine Kinase MB Relative Index 1.45, Troponin I 0.03, Thyroid Stimulating Hormone (TSH) 0.096L CBC/BMP Laboratory Tests 03/22/19 20:53 Home Medications Scheduled Amitriptyline HCl (Amitriptyline HCl) 25 Mg Tablet, 25 MG PO QHS Aspirin (Aspirin EC) 81 Mg Tablet.dr, 81 MG PO DAILY Atorvastatin Calcium (Atorvastatin Calcium) 10 Mg Tablet, 10 MG PO QHS Ciprofloxacin HCl (Cipro) 500 Mg Tablet, 1 TAB PO BID Levothyroxine Sodium (Synthroid) 125 Mcg Tablet, 125 MCG PO DAILY Metoprolol Tartrate (Metoprolol Tartrate) 25 Mg Tablet, 12.5 MG PO BID Mirabegron (Myrbetriq) 25 Mg Tab.er.24h, 25 MG PO DAILY Omeprazole (Omeprazole) 40 Mg Capsule.dr, 40 MG PO BID Ramipril (Ramipril) 5 Mg Cap, 5 MG PO DAILY Rifaximin (Xifaxan) 550 Mg Tablet, 550 MG PO BID Umeclidinium Leonard (Incruse Ellipta) 62.5 Mcg Blst.w.dev, 1 PUFF INH DAILY Scheduled PRN Albuterol Sulf (Albuterol Sulfate) 2.5 Mg/3 Ml Vial.neb, 2.5 MG INH QID PRN for SHORTNESS OF BREATH Albuterol Sulfate (Ventolin Hfa) 108 Mcg/Act Aer, 2 PUFFS INH QID PRN for SHORTNESS OF BREATH Allergies Coded Allergies: bacitracin (Verified Allergy, Severe, itching, swelling, 06/09/18) latex (Verified Allergy, Severe, itching, swelling, 06/09/18) A-FIB/CHADSVASC A-FIB History Current/History of A-Fib/PAF?: No Current PO Anticoag Therapy: No (teds and sequentials ordered) GME ATTESTATION GME ATTESTATION My faculty preceptor for this patient encounter was physically present during the encounter and was fully available. All aspects of the patient interview, examination, medical decision making process, and medical care plan development were reviewed and approved by the faculty preceptor. The faculty preceptor is aware and concurs with the plan as stated in the body of this note and will attest to such by his/her cosignature. ATTENDING NOTE I examined the patient on Mar 22 at 1157PM, edited the note and agree with the findings as documented. SHEKHAR YOON D.O. Mar 23, 2019 03:59 PAVAN CHAVEZ MD Mar 23, 2019 06:00
[2019-03-23] MEDS: MAG SULF 1GM/100ML (MAG RUN) 1 GM in IV 1 EA IV SCH ×2 (04:11→06:36)
[2019-03-23] MEDS: LEVOTHYROXINE 125MCG TABLET (0.125MG) PO SCH (05:30)
[2019-03-23] MEDS: CIPROFLOXACIN 400 MG in IV 1 EA IV SCH ×2 (05:31→16:41)
--- NOTE | 2019-03-23 07:08 | REP ---
PA and lateral chest: Comparison is 02/23/2019. The diffuse bilateral interstitial coarsening on the comparison study has resolved. There is slight effacement of the lateral costophrenic angles, small bilateral pleural effusions versus small infiltrates. Cardiac size is normal. The chandrakant, mediastinum, skeletal structures are unremarkable. Impression: Effacement of the lateral costophrenic sulci, small infiltrates versus small pleural effusions. Electronically Signed by Jv Yee MD 03/23/2019 07:01 A
[2019-03-23] MEDS ORDERED: LORazepam 2 MG/ML VIAL (J2060) IV PRN (07:15)
[2019-03-23] MEDS ORDERED: LORazepam 2 MG TAB PO PRN (08:00)
[2019-03-23] MEDS: PANTOPRAZOLE 40MG INJ (PROTONIX) (C9113) IV SCH ×2 (08:43→20:56)
[2019-03-23] MEDS: OCTREOTIDE ACETATE 1,200 MCG in NS 238.8 ML IV SCH (08:44)
[2019-03-23] MEDS: METOPROLOL TART 12.5 MG PER 1/2 TAB PO SCH ×2 (08:45→20:57)
[2019-03-23] MEDS: ASPIRIN 81 MG ENTERIC TAB PO SCH (08:45)
[2019-03-23] MEDS: rifAXIMin 550 MG TAB (XIFAXAN) PO SCH ×2 (08:45→20:57)
[2019-03-23] MEDS: ramipriL 5 MG CAP PO SCH (08:46)
[2019-03-23] MEDS ORDERED: UMECLIDINIUM 62.5 MCG INH SCH (09:00)
[2019-03-23] MEDS ORDERED: MIRABEGRON 25 MG PO SCH (09:00)
[2019-03-23 09:05] LABS: HEMATOCRIT 26.3 % (36.0-47.0); HEMOGLOBIN 7.9 g/dl (12.0-15.5); LYMPH # 0.5 10^3/uL (1.5-5.0); LYMPH % 11.5 % (24.0-44.0); MEAN CORPUSCULAR HEMOGLOBIN 27.7 pg (27.0-33.0); MEAN CORPUSCULAR VOLUME 92.3 fl (80.0-96.0); MONO # 0.1 10^3/uL (0.0-0.8); MONO % 3.6 % (0.0-5.0); NEUTROPHILS # 3.3 10^3/uL (1.5-8.5); NEUTROPHILS % 83.6 % (36.0-66.0); RED BLOOD COUNT 2.85 10^6/uL (4.00-5.40); WHITE BLOOD COUNT 3.9 10^3/uL (4.0-10.0)
[2019-03-23] MEDS: NS 1,000 ML IV SCH ×2 (09:08→20:57)
[2019-03-23 09:13] LABS: PLATELET COUNT, AUTOMATED 52 10^3/uL (150-450)
[2019-03-23] MEDS: FOLIC ACID 1 MG TAB PO SCH (09:18)
[2019-03-23] MEDS: THIAMINE 100 MG TAB PO SCH ×2 (09:18→20:57)
[2019-03-23] MEDS: MULTIVITAMINS/MINERALS THERAP 1 TAB PO SCH (09:19)
[2019-03-23 09:33] LABS: ALBUMIN 2.4 GM/DL (3.2-5.2); ALT/SGPT 30 U/L (12-78); BILIRUBIN,TOTAL 1.4 MG/DL (0.2-1.0); BLOOD UREA NITROGEN 17 MG/DL (7-18); CALCIUM LEVEL 8.1 MG/DL (8.8-10.2); CARBON DIOXIDE LEVEL 25 MEQ/L (21-32); CHLORIDE LEVEL 110 MEQ/L (98-107); CREATININE FOR GFR 0.82 MG/DL (0.55-1.30); GLOMERULAR FILTRATION RATE > 60.0 (>32); GLUCOSE, FASTING 223 MG/DL (70-100); MAGNESIUM LEVEL 2.2 MG/DL (1.8-2.4); POTASSIUM SERUM 4.5 MEQ/L (3.5-5.1); SODIUM LEVEL 139 MEQ/L (136-145); TOTAL PROTEIN 6.4 GM/DL (6.4-8.2)
[2019-03-23 10:12] LABS: FOLATE 6.1 NG/ML (>5.4); VITAMIN B12 LEVEL 539 PG/ML (247-911)
--- NOTE | 2019-03-23 12:04 | IPNPDOC ---
Subjective Date Seen The patient was seen on 03/23/19. Subjective Chief Complaint/HPI Ms. Gonzalez is an 84 year old female admitted to the hospital due to Shortness of breath, Fall, Dizziness with vision disturbance & Vomiting. Pt is seen sitting up in bed this morning. She had not long completed her blood transfusions and says she feels much better now than last night. Sx on admission have resolved. Pt stated she has fallen several times at home; she is willing to get up only with assistance and is willing to work with PT after she is seen/scoped by GI. General: Denies: Chills, Night Sweats, Fatigue, Malaise Constitutional: Denies: Chills, Fever, Night Sweats Eyes: Denies: Pain, Vision change ENT: Denies: Head Aches Skin: Denies: Rash Pulmonary: Denies: Dyspnea, Cough Cardiovascular: Denies: Chest Pain, Palpitations, Orthopnea, Paroxysmal Noc. Dyspnea, Edema, Lt Headedness Gastrointestinal: Denies: Nausea, Vomiting, Abdominal Pain, Diarrhea, Constipation Genitourinary: Reports: Incontinence (wears pads ); Denies: Dysuria, Frequency, Retention Hematologic: Denies: Bruising Musculoskeletal: Denies: Neck Pain, Back Pain, Joint Pain, Muscle Pain, Spasms Neurological: Denies: Weakness, Numbness, Change in speech, Confusion Psych: Reports: Mood Normal Objective Physical Examination General Exam: Positive: Alert, Cooperative, No Acute Distress Eye Exam: Positive: Conjunctiva & lids normal; Negative: Sclera icteric, Ptosis ENT Exam: Positive: Atraumatic, Mucous membr. moist/pink, Pharynx Normal, Tongue Midline Neck Exam: Positive: Supple; Negative: thyromegaly Chest Exam: Positive: Clear to auscultation, Normal air movement Heart Exam: Positive: Rate Normal, Regular Rhythm, Murmurs (harsh 3/6, across the precordium. S1S2 barely audible ); Negative: Gallops, Rubs Telemetry: Positive: No significant arrhythmia Abdomen Exam: Positive: Normal bowel sounds, Soft; Negative: Tenderness Extremity Exam: Positive: Normal pulses; Negative: Clubbing, Cyanosis, Edema Skin Exam: Positive: Nl turgor and temperature, Other skin issue (bruising over R elbow ) Neuro Exam: Positive: Normal Speech, Strength at 5/5 X4 ext, Cranial Nerves 3- 12 NL Psych Exam: Positive: Mood NL Assessment /Plan Assessment Ms. Gonzalez is an 84 year old female who presented to the ED yesterday due to Shortness of breath, Fall, Dizziness with vision disturbance & Vomiting. Ms. Gonzalez has a PMHx which includes: NSTEMI (02/23/19), GI bleed (02/15/19), liver cirrhosis, COPD, type 2 diabetes, hypertension, and hypothyroidism. Prior to presenting to the hospital, she had been experiencing shortness of breath on e xertion for 4-5 days. Further, pt had been hypotensive during the day with SBPs in the 80s. Pt was recently d/c from [facility] with appointments to establish care with Drs. Rico (GI bleed) and Jayden (NSTEMI). Pt takes ASA 81mg and is not on anti-coagulants presumably due to frequent falls. In the ED, patient was pancytopenic and hypokalemic. Cardiac markers were unremarkable. CXR - some platelike atelectasis and mild fluid in the lower left lobe. CT head without contrast - no acute pathology. GI has been consulted and will assess the pt today. Pancytopenia - Multi-factorial, 2/2 liver cirrhosis in the setting of GI bleed with poor nutritional intake - Iron, low, Ferritin, B12, Folate WNL - 2 units PRBCs transfused. Hbg 7.9; continue serial CBCs - Continue home Folate 1mg - Peripheral smear, stool occult & H. pylori - pending Thrombocytopenia - Likely secondary to cirrhosis - Currently plt > 50 - Continue to monitor Suspected GI bleed - Continue Protonix, Octreotide, Cipro, clear liquid diet - GI on consult Recent NSTEMI -48hr Telemetry -Continue ASA 81mg Hypokalemia - Resolved with supplementation - Monitor bmp daily and replace prn Hypomagnesemia - Resolved with supplementation - Monitor bmp daily and replace prn Alcoholic cirrhosis - MELD score 11 -Continue Rifaximin -CIWA protocol in place with Ativan per protocol Type 2 diabetes - hold PO anti-glycemics - ISS with achs COPD - Continue home medications - 02 titration 88-92% Hypothyroidism - Continue home medications Hypertension - Continue home medications Plan/VTE VTE Prophylaxis Ordered?: Yes (TEDs/Sequentials due to frequent falls ) Plan Activity: Encourage Ambulation (with assistance) Therapy: PT (eval & treat ) Diagnostics: Check Labs (repeat CBC q6hrs today, then daily ) VS, I&O, 24H, [facility] Vital Signs/I&O Vital Signs Date Time Temp Pulse Resp B/P (MAP) Pulse Ox O2 Delivery O2 Flow Rate FiO2 03/23/19 08:46 127/57 03/23/19 08:45 83 03/23/19 08:00 97.7 20 96 Nasal Cannula 3.0 I&O- Last 24 Hours up to 6 AM 03/23/19 06:00 Intake Total 820 ml Output Total 825 ml Balance -5 ml Laboratory Data 24H LABS Laboratory Tests 2 03/22/19 19:56: Bedside Glucose (Misc Panel) 148H 03/22/19 20:53: Immature Granulocyte % (Auto) 0.5, Neutrophils (%) (Auto) 87.6H, Lymphocytes (%) (Auto) 7.1L, Monocytes (%) (Auto) 4.8, Eosinophils (%) (Auto) 0.0, Basophils (%) (Auto) 0.0, Neutrophils # (Auto) 3.5, Lymphocytes # (Auto) 0.3L, Monocytes # (Auto) 0.2, Eosinophils # (Auto) 0.0, Basophils # (Auto) 0.0, Reticulocyte # (auto) 105.0H, Nucleated Red Blood Cells % (auto) 0.0, Immature Platelet Fraction 7.2, Percent Reticulocyte Count 4.8H, Reticulocyte Hemoglobin Equivalent 25.4, Prothrombin Time 16.6H, Prothromb Time International Ratio 1.37, Activated Partial Thromboplast Time 36.2, Anion Gap 7L, Glomerular Filtration Rate > 60.0, Calcium Level 8.0L, Magnesium Level 1.5L, Iron Level 23L, Total Iron Binding Capacity 345, Transferrin % Saturation 6.7L, Ferritin 18, Total Creatine Kinase 83, Creatine Kinase MB 1.2, Creatine Kinase MB Relative Index 1.45, Troponin I 0.03, Vitamin B12 Level 539, Folate 6.1, Thyroid Stimulating Hormone (TSH) 0.096L 03/23/19 06:20: Bedside Glucose (Misc Panel) 222H 03/23/19 08:36: Immature Granulocyte % (Auto) 1.3, Neutrophils (%) (Auto) 83.6H, Lymphocytes (%) (Auto) 11.5L, Monocytes (%) (Auto) 3.6, Eosinophils (%) (Auto) 0.0, Basophils (%) (Auto) 0.0, Neutrophils # (Auto) 3.3, Lymphocytes # (Auto) 0.5L, Monocytes # (Auto) 0.1, Eosinophils # (Auto) 0.0, Basophils # (Auto) 0.0, Nucleated Red Blood Cells % (auto) 0.0, Anion Gap 4L, Glomerular Filtration Rate > 60.0, Calcium Level 8.1L, Magnesium Level 2.2, Differential Slide Review Report, Peripheral Blood Smear Path Consult PERIPHERAL SMEAR, Total Bilirubin 1.4H, Aspartate Amino Transf (AST/SGOT) 48H, Alanine Aminotransferase (ALT/SGPT) 30, Alkaline Phosphatase 190H, Total Protein 6.4, Albumin 2.4L, Albumin/Globulin Ratio 0.60L CBC/BMP Laboratory Tests 03/22/19 20:53 03/23/19 08:36 GME ATTESTATION GME ATTESTATION My faculty preceptor for this patient encounter was physically present during the encounter and was fully available. All aspects of the patient interview, examination, medical decision making process, and medical care plan development were reviewed and approved by the faculty preceptor. The faculty preceptor is aware and concurs with the plan as stated in the body of this note and will attest to such by his/her cosignature. ATTENDING NOTE I have reviewed the documentation and assessed the patient independently. I have made necessary revisions as needed. I agree with the findings, assessment and plan stated above. EMMY HARRINGTON PA-C Mar 23, 2019 12:04 TUAN CHOPRA MD Mar 24, 2019 13:05
[2019-03-23 15:55] LABS: EOS % 0.1 % (0.0-3.0); HEMATOCRIT 30.1 % (36.0-47.0); LYMPH # 0.5 10^3/uL (1.5-5.0); LYMPH % 7.2 % (24.0-44.0); MEAN CORPUSCULAR HEMOGLOBIN 28.1 pg (27.0-33.0); MEAN CORPUSCULAR HGB CONC 29.9 g/dl (32.0-36.5); MEAN CORPUSCULAR VOLUME 94.1 fl (80.0-96.0); MONO # 0.3 10^3/uL (0.0-0.8); MONO % 3.6 % (0.0-5.0); NEUTROPHILS # 6.2 10^3/uL (1.5-8.5); NEUTROPHILS % 88.5 % (36.0-66.0)
[2019-03-23 15:57] LABS: PLATELET COUNT, AUTOMATED 61 10^3/uL (150-450)
--- NOTE | 2019-03-23 20:53 | CR ---
DATE OF CONSULTATION: 03/23/2019 STATUS OF PATIENT: Inpatient. REQUESTING PHYSICIAN: Hospitalist service. REASON FOR CONSULTATION: Anemia, melena. HISTORY OF PRESENT ILLNESS: Mrs. Gonzalez is an 84-year-old female with a most recent history of a torrential upper gastrointestinal (GI) bleed on 02/15/2019, for which she was transferred to [facility] and had endoscopy performed and told that she had some type of a cauterization or a clipping performed, and was eventually discharged on 02/21/2019 in reasonable condition. Approximately three days after discharge, she developed chest pain, palpitations and visual changes for which she represented to the emergency room here at [facility] and was found to have a non-ST elevation myocardial infarction, for which she was again transferred to [facility], but was managed conservatively with aspirin only due to recent upper GI bleeding. She did not have any anticoagulants or coronary interventions performed. The patient was again discharged in reasonable condition, she states, and was on a regular diet, taking omeprazole. She feels that she was doing relatively well up until approximately 2-3 days ago, when she started feeling weak again, had some fatigue and some dark colored stools. She presents to the emergency room with a hemoglobin of 6, which is lower than her recent baseline and was transfused. She presently has not had any further dark stools. No emesis. No chest pain. No palpitations. No abdominal pain and has had no further bowel movements. The transfusion of 2 units brought her hemoglobin up to 9.0. At the present, the patient feels well. PAST MEDICAL HISTORY: 1. Acute upper GI bleed February 15, 2019, with endoscopic evaluation and treatment at [facility]. 2. Non-ST elevation myocardial infarction ([place]) February 23, 2019. 3. Probable liver cirrhosis based on CT scan. 4. Chronic obstructive pulmonary disease (COPD).. 5. Type 2 diabetes. 6. Asthma. 7. Gastroesophageal reflux. PAST SURGICAL HISTORY: 1. Esophagogastroduodenoscopy (EGD) 02/15/2019 with endoscopic management of an upper GI bleed. 2. EGD and colonoscopy on 10/26/[address] Rico. 3. Hysterectomy. 4. Appendectomy. 5. Cholecystectomy. 6. Bladder surgery. 7. Bilateral new knee surgery. Positive for longstanding history of significant alcohol use. She quit drinking alcohol 02/15/2019. Prior to that, she had at least four alcoholic beverages per night for greater than 20 years. FAMILY HISTORY: Positive for gastric cancer and cirrhosis. ALLERGIES: LATEX AND BACITRACIN. MEDICATIONS AT HOME: - amitriptyline - aspirin - atorvastatin - levothyroxine - metoprolol - baby aspirin - omeprazole - Xifaxan PHYSICAL EXAMINATION: Temperature 97.1, pulse is 80, respiratory rate 18, blood pressure 124/57, pulse oximetry 95% on room air. GENERAL: She is awake, alert, oriented times three. No acute distress. Nontoxic in appearance. Happy and conversant in bed. Answering all questions appropriately. HEAD, EYES, EARS, NOSE and THROAT: Grossly without abnormality. There is no oral thrush. Neck is negative for lymphadenopathy or thyromegaly. CHEST: Coarse breath sounds, but no rhonchi or crackles are appreciated. HEART: Regular rate and rhythm. S1, S2. No murmurs. ABDOMEN: Soft, nontender. No masses. No definite ascites palpable. There is no tenderness on palpation. EXTREMITIES: Negative for edema. RECTAL EXAMINATION: Has been deferred as per patient. NEUROLOGIC EXAMINATION: There is no asterixis. She moves all of her extremities equally and bilaterally. She is awake, alert and oriented times three. LABORATORY WORK:: Hemoglobin 6.0/7.9/9.0. BUN 11/04/16. Sodium 139, potassium 4.5, chloride 110, BUN 17, creatinine 0.82, albumin is 2.4. PT/INR is 1.37. WBC 7.0, platelet count is 61. AST 48, ALT 30, alkaline phosphatase 190, albumin 2.4. CT abdomen and pelvis dated 02/15/2019: 1. Mucosal thickening to the sigmoid and small amount of ascites suggesting infectious, inflammatory colitis. Correlation is recommended. 2. Cirrhosis and evidence of early portal venous hypertension. 10/26/2017 colonoscopy: Done for reasons of iron deficiency. Impression: 1. Medium-size polyp removed with jumbo biopsy. 2. Diverticulosis in the sigmoid colon and descending colon. The examination was otherwise normal. EGD dated 10/26/2017 done for reasons of iron deficiency anemia. Impression: 1. Irregular Z-line at 35 cm from the incisors 2. Mucosal changes suspicious for gastritis, biopsied. 3. Examination was otherwise normal. IMPRESSION 1. Acute posthemorrhagic anemia with probable recurrent GI bleeding, which likely has again stopped at this time. 2. Very recent myocardial infarction, 02/25/2019. 3. Recent acute upper GI bleed, 02/15/2019. 4. Cirrhosis, portal hypertension, ascites, previously evaluated and deemed to be likely from alcohol versus nonalcoholic steatohepatitis RECOMMENDATIONS: 1. In view of her very recent acute myocardial infarction and her hemodynamic stability with no further melena or evidence for acute GI bleeding, as well as appropriate increase in her hemoglobin after transfusion, I would favor close monitoring and conservative management with empiric proton pump inhibitor (PPI) therapy. Her current presentation is not consistent with acute variceal bleeding. I do not think we will need to emergently intervene endoscopically. 2. I will obtain records from [facility] from her recent endoscopy to hopefully further support this management. 3. The patient will follow up with Dr. Rico, her primary nursery nurse, as an outpatient for further management of her cirrhosis and to decide if interval endoscopy in the next six months is warranted. MARILEE
[2019-03-23 22:14] LABS: BASO % 0.1 % (0.0-1.0); HEMATOCRIT 27.7 % (36.0-47.0); HEMOGLOBIN 8.2 g/dl (12.0-15.5); LYMPH # 0.8 10^3/uL (1.5-5.0); MEAN CORPUSCULAR HEMOGLOBIN 27.7 pg (27.0-33.0); MEAN CORPUSCULAR HGB CONC 29.6 g/dl (32.0-36.5); MEAN CORPUSCULAR VOLUME 93.6 fl (80.0-96.0); MONO # 0.7 10^3/uL (0.0-0.8); MONO % 6.8 % (0.0-5.0); NEUTROPHILS # 9.2 10^3/uL (1.5-8.5); NEUTROPHILS % 85.7 % (36.0-66.0); RED BLOOD COUNT 2.96 10^6/uL (4.00-5.40); WHITE BLOOD COUNT 10.7 10^3/uL (4.0-10.0)
[2019-03-23 22:15] LABS: PLATELET COUNT, AUTOMATED 61 10^3/uL (150-450)
[2019-03-24] VITALS (7 sets, daily range): BP systolic 135–154; BP diastolic 65–73
[2019-03-24] MEDS: OCTREOTIDE ACETATE 1,200 MCG in NS 238.8 ML IV SCH (04:31)
[2019-03-24] MEDS: CIPROFLOXACIN 400 MG in IV 1 EA IV SCH ×2 (04:31→16:17)
[2019-03-24] MEDS: LEVOTHYROXINE 125MCG TABLET (0.125MG) PO SCH (05:07)
[2019-03-24 05:16] LABS: BASO % 0.1 % (0.0-1.0); HEMATOCRIT 27.3 % (36.0-47.0); HEMOGLOBIN 7.9 g/dl (12.0-15.5); LYMPH # 0.7 10^3/uL (1.5-5.0); LYMPH % 8.5 % (24.0-44.0); MEAN CORPUSCULAR HEMOGLOBIN 27.7 pg (27.0-33.0); MEAN CORPUSCULAR HGB CONC 28.9 g/dl (32.0-36.5); MEAN CORPUSCULAR VOLUME 95.8 fl (80.0-96.0); MONO # 0.6 10^3/uL (0.0-0.8); MONO % 7.2 % (0.0-5.0); NEUTROPHILS # 6.8 10^3/uL (1.5-8.5); NEUTROPHILS % 83.7 % (36.0-66.0); RED BLOOD COUNT 2.85 10^6/uL (4.00-5.40); WHITE BLOOD COUNT 8.1 10^3/uL (4.0-10.0)
[2019-03-24 05:22] LABS: PLATELET COUNT, AUTOMATED 53 10^3/uL (150-450)
[2019-03-24 05:33] LABS: BLOOD UREA NITROGEN 13 MG/DL (7-18); CALCIUM LEVEL 8.2 MG/DL (8.8-10.2); CARBON DIOXIDE LEVEL 27 MEQ/L (21-32); CHLORIDE LEVEL 113 MEQ/L (98-107); CREATININE FOR GFR 0.79 MG/DL (0.55-1.30); GLOMERULAR FILTRATION RATE > 60.0 (>32); GLUCOSE, FASTING 114 MG/DL (70-100); POTASSIUM SERUM 4.6 MEQ/L (3.5-5.1); SODIUM LEVEL 142 MEQ/L (136-145)
[2019-03-24] MEDS: METOPROLOL TART 12.5 MG PER 1/2 TAB PO SCH (09:48)
[2019-03-24] MEDS: THIAMINE 100 MG TAB PO SCH (09:49)
[2019-03-24] MEDS: PANTOPRAZOLE 40MG INJ (PROTONIX) (C9113) IV SCH (09:49)
[2019-03-24] MEDS: rifAXIMin 550 MG TAB (XIFAXAN) PO SCH (09:49)
[2019-03-24] MEDS: MULTIVITAMINS/MINERALS THERAP 1 TAB PO SCH (09:49)
[2019-03-24] MEDS: FOLIC ACID 1 MG TAB PO SCH (09:49)
[2019-03-24] MEDS: ASPIRIN 81 MG ENTERIC TAB PO SCH (09:49)
[2019-03-24] MEDS: ramipriL 5 MG CAP PO SCH (09:52)
[2019-03-24 11:28] LABS: HEMATOCRIT 27.3 % (36.0-47.0); HEMOGLOBIN 8.2 g/dl (12.0-15.5)
--- NOTE | 2019-03-24 13:13 | ECGEPIP ---
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
--- NOTE | 2019-03-24 14:08 | IPNPDOC ---
Text Note Date of Service The patient was seen on 03/24/19. NOTE Chief Complaint/HPI Ms. Gonzalez is an 84 year old female admitted to the hospital due to Shortness of breath, Fall, Dizziness with vision disturbance & Vomiting. Pt is seen sitting up in bed this morning with her daughter present; she continues to feel much improved. Sx on admission have resolved. Pt is ready to go home JEANETTE. She has already re-scheduled her appts. with Drs. Carpenter and Jacky. We have discussed in some detail that at the first sign of dark/black stools or CP, pt should contact her provider (or dial 911 for CP) instead of waiting several days for Sx to resolve spontaneously. We have discussed taking Omeprazole 30mins to 1 hr prior to food/meds for it to be most effective. General: Denies: Chills, Night Sweats, Fatigue, Malaise Constitutional: Denies: Chills, Fever, Night Sweats Eyes: Denies: Pain, Vision change ENT: Denies: Head Aches Skin: Denies: Rash Pulmonary: Denies: Dyspnea, Cough Cardiovascular: Denies: Chest Pain, Palpitations, Orthopnea, Paroxysmal Noc. Dyspnea, Edema, Lt Headedness Gastrointestinal: Denies: Nausea, Vomiting, Abdominal Pain, Diarrhea, Constipation Genitourinary: Reports: Incontinence (wears pads ); Denies: Dysuria, Frequency, Retention Hematologic: Denies: Bruising Musculoskeletal: Denies: Neck Pain, Back Pain, Joint Pain, Muscle Pain, Spasms Neurological: Denies: Weakness, Numbness, Change in speech, Confusion Psych: Reports: Mood Normal Physical exam: General Exam: Positive: Alert, Cooperative, No Acute Distress Eye Exam: Positive: Conjunctiva & lids normal; Negative: Sclera icteric, Ptosis ENT Exam: Positive: Atraumatic, Mucous membr. moist/pink, Pharynx Normal, Tongue Midline Neck Exam: Positive: Supple; Negative: thyromegaly Chest Exam: Positive: Clear to auscultation, Normal air movement Heart Exam: Positive: Rate Normal, Regular Rhythm, Murmurs (harsh 3/6, across the precordium. S1S2 barely audible ); Negative: Gallops, Rubs Telemetry: Positive: No significant arrhythmia Abdomen Exam: Positive: Normal bowel sounds, Soft; Negative: Tenderness Extremity Exam: Positive: Normal pulses; Negative: Clubbing, Cyanosis, Edema Skin Exam: Positive: Nl turgor and temperature, Other skin issue (bruising over R elbow ) Neuro Exam: Positive: Normal Speech, Strength at 5/5 X4 ext, Cranial Nerves 3- 12 NL Psych Exam: Positive: Mood NL Assessment: Ms. Gonzalez is an 84 year old female who presented to the ED yesterday due to Shortness of breath, Fall, Dizziness with vision disturbance & Vomiting. Ms. Gonzalez has a PMHx which includes: NSTEMI (02/23/19), GI bleed (02/15/19), liver cirrhosis, COPD, type 2 diabetes, hypertension, and hypothyroidism. Prior to presenting to the hospital, she had been experiencing shortness of breath on exertion for 4-5 days. Further, pt had been hypotensive during the day with SBPs in the 80s. Pt was recently d/c from [facility] with appointments to establish care with Drs. Rico (GI bleed) and Jayden (NSTEMI). Pt takes ASA 81mg and is not on anti-coagulants presumably due to frequent falls. In the ED, patient was pancytopenic and hypokalemic. Cardiac markers were unremarkable. CXR - some platelike atelectasis and mild fluid in the lower left lobe. CT head without contrast - no acute pathology. GI has been consulted and will assess the pt today. Anemia of Chronic Dz. - Multi-factorial, 2/2 liver cirrhosis in the setting of GI bleed with poor nutritional intake - Iron, low, Ferritin, B12, Folate WNL - 2 units PRBCs transfused. most recent hgb stable at 8.2 - Continue home Folate 1mg - Peripheral smear (anemia of chronic Dz.) - stool occult & H. pylori - pending Thrombocytopenia - Likely secondary to cirrhosis - Currently plt > 50 - Continue to monitor Suspected GI bleed - Continue Protonix, Octreotide, Cipro - GI on consult - suspect resolved. recommend continuing PPI and outpt GI f/u and close monitoring - resumed regular diet and pt tolerating well Recent NSTEMI -48hr Telemetry -Continue ASA 81mg - outpt f/u with Dr. Carpenter as scheduled Hypokalemia - Resolved with supplementation - Monitor bmp daily and replace prn Hypomagnesemia - Resolved with supplementation - Monitor bmp daily and replace prn Alcoholic cirrhosis - MELD score 11 -Continue Rifaximin -CIWA protocol in place with Ativan per protocol - F/U and management outpt with Dr. Rico/GI Type 2 diabetes - hold PO anti-glycemics - ISS with achs COPD - Continue home medications - 02 titration 88-92% Hypothyroidism - Continue home medications Hypertension - Continue home medications VTE Prophylaxis Ordered?: Yes (TEDs/Sequentials due to frequent falls ) Dispo: Pt to be d/c home tonight if she tolerates dinner and her 1700 CBC stable, with f/u GI and cardiology as noted above. Discussed with nursing. Recs for suspected GI bleed per Dr. Braswell discussed with pt. Complete 7d course Cipro outpt RE: GI bleed and cirrhosis prophy. VS,Fishbone, I+O VS, Fishbone, I+O Laboratory Tests 03/23/19 15:32 03/23/19 21:59 03/24/19 04:51 03/24/19 10:57 Vital Signs Date Time Temp Pulse Resp B/P (MAP) Pulse Ox O2 Delivery O2 Flow Rate FiO2 03/24/19 12:00 97.1 77 16 150/73 (98) 99 Nasal Cannula 3.0 I&O- Last 24 Hours up to 6 AM 03/24/19 05:59 Intake Total 4245.0 ml Output Total 1700 ml Balance 2545.0 ml Attending Note Attending Note I have reviewed the documentation and assessed the patient independently. I have made necessary revisions as needed. I agree with the findings, assessment and plan stated above. - Time spent on discharge 35 minutes - Patient was seen and examined at the bedside; currently denied any further episodes of dark stool - Has been tolerating her diet appropriately - Physical was nonrevealing. No abdominal tenderness - Hemoglobin has remained stable; improved appropriately after receiving 2 units of PRBC - Patient has been advised to remain compliant with treatment plan and medications - Will have outpatient follow-up with her primary care provider, gastroenterology and cardiology within the next 7 days - She's been advised to return to the emergency room if she experiences any problems Disposition: - Home with services EMMY HARRINGTON PA-C Mar 24, 2019 14:08 TUAN CHOPRA MD Mar 24, 2019 16:05
[2019-03-24] MEDS ORDERED: CIPR-249 PO (15:18)
[2019-03-24 17:38] LABS: HEMATOCRIT 28.7 % (36.0-47.0); HEMOGLOBIN 8.2 g/dl (12.0-15.5)
[2019-03-24] MEDS ORDERED: BLOOKIT XX (18:39)
[2019-03-25] MEDS ORDERED: CIPR-249 PO (14:57)
--- NOTE | 2019-04-06 15:36 | DS.PDOC ---
Discharge Summary General Date of Admission Mar 22, 2019 at 22:51 Date of Discharge 03/24/2019 Discharge Summary PROCEDURES PERFORMED DURING STAY: [None]. ADMITTING DIAGNOSES: Pancytopenia Recent STEMI Hypokalemia Hypomagnesemia Liver Cirrhosis Type 2 Diabetes COPD Hypothyroidism Hypertension GERD DISCHARGE DIAGNOSES: Anemia of Chronic Disease Thrombocytopenia GI bleed Recent NSTEMI Hypertension Hypokalemia Hypomagnesemia Alcoholic Cirrhosis Type 2 Diabetes COPD Hypothyroidism COMPLICATIONS/CHIEF COMPLAINT: Pancytopenia. HISTORY OF PRESENT ILLNESS: "Marielena is a 84-year-old female with past medical history of NSTEMI four weeks ago (02/23/19), GI bleed last month (02/15/19), liver cirrhosis, COPD, type 2 diabetes, hypertension, and hypothyroidism who presented to the emergency department this evening via EMS with the chief complaints of shortness of breath, vomiting and dizziness. Patient has experie nced exertional dyspnea for the past 4-5 days, and yesterday, developed dizziness and intermittent diplopia while at rest. She has had 2 episodes of vomiting today while in route to the ED, but is unsure if there is any hematemesis or coffee ground emesis since it was dark in the ambulance and she did not examine the vomit. Patient also fell around 6 PM this evening while at home, landing initially onto her right forehead and elbow. She is unsure if she lost consciousness. Patient has been hypotensive today, with SBPs in the 80s. She also has accompanying sternal chest pressure that is exacerbated with minimal movement. She endorses recent black-colored stools. She is not on any anticoagulation medication, but does take an 81 mg daily, aspirin for antiplatelet coverage after being treated for the NSTEMI at [facility] this month. She is postmenopausal and denies any recent vaginal bleeding or hematuria. Around the time of her GI bleed and nstemi, she admits to a diminished appetite, but has returned to a full diet since. She denies having these symptoms at any time previously. Patient was extensively worked up at [facility] for GI bleed from and was in the process of establishing with gastroenterology (Dr. Rico) as outpatient. She is also setting up with cardiology as outpatient (Dr. Carpenter's office) because of the recent nstemi. At the time of her discharge from [facility] earlier this month, she had significant changes made to her medication regimen: Amlodipine was stopped, metoprolol tartrate 12.5 mg twice a day was started, albuterol nebulizer was started, and the 81 mg daily. Aspirin was also started. In the emergency department, patient was found to be pancytopenic (WBC 3.9, Hgb 6.0, PLT 51) with hypokalemia. Cardiac markers were unremarkable, two-view chest x-ray showed some platelike atelectasis and mild fluid in the lower left lobe. CT head without contrast showed no acute pathology. Patient was subsequently admitted under the care of the hospitalist team for symptomatic anemia in the presence of pancytopenia and 2 units of PRBCs were ordered to be transfused. Patient's primary care physician is Dr. Hector Barrow Jr. Patient verbalizes that her CODE STATUS is full cardiac resuscitation with DNI. Patient was accompanied by her fzvvhnri-ct-wjo Carol." HOSPITAL COURSE: PT admitted as noted above. Provided 2 units PRBCs, IV Cipro and IV fluids on admission. Full anemia labs completed (see below). GI consult placed; per Dr. Braswell, pt symptoms had resolved with no further evidence of GI bleed and an appropriate Hgb response s/p transfusion of PRBCs. Recommended monitoring and conservative management with PPI; he also reviewed pt EGD. Pt continued to improve and her H&H remained stable. She was discharged home with close GI, cardiology follow-up as ordered. DISCHARGE MEDICATIONS: Please see below. ALLERGIES: Please see below. PHYSICAL EXAMINATION ON DISCHARGE: VITAL SIGNS: Please see below. General Exam: Positive: Alert, Cooperative, No Acute Distress Eye Exam: Positive: Conjunctiva & lids normal; Negative: Sclera icteric, Ptosis ENT Exam: Positive: Atraumatic, Mucous membr. moist/pink, Pharynx Normal, Tongue Midline Neck Exam: Positive: Supple; Negative: thyromegaly Chest Exam: Positive: Clear to auscultation, Normal air movement Heart Exam: Positive: Rate Normal, Regular Rhythm, Murmurs (harsh 3/6, across the precordium. S1S2 barely audible ); Negative: Gallops, Rubs Telemetry: Positive: No significant arrhythmia Abdomen Exam: Positive: Normal bowel sounds, Soft; Negative: Tenderness Extremity Exam: Positive: Normal pulses; Negative: Clubbing, Cyanosis, Edema Skin Exam: Positive: Nl turgor and temperature, Other skin issue (bruising over R elbow ) Neuro Exam: Positive: Normal Speech, Strength at 5/5 X4 ext, Cranial Nerves 3- 12 NL Psych Exam: Positive: Mood NL LABORATORY DATA: Please see below. IMAGING: CT Head without contrast IMPRESSION: "No acute intracranial abnormality. Chronic microvascular ischemic changes." Chest, 2 view PA, Lat Impression: Effacement of the lateral costophrenic sulci, small infiltrates versus small pleural effusions. ACTIVITY: [As tolerated]. DIET: As tolerated DISCHARGE PLAN: D/c home with services, close GI and cardiology f/u DISPOSITION: Home, with services . DISCHARGE INSTRUCTIONS: 1. Follow Up Appt: Dr. Carpenter - recent NSTEMI, Dr. Rico, [facility], recurrent ITEMS TO FOLLOWUP ON ON OUTPATIENT: 1. above DISCHARGE CONDITION: [Stable]. TIME SPENT ON DISCHARGE: 31 minutes Discharge Medications Scheduled Amitriptyline HCl (Amitriptyline HCl) 25 Mg Tablet, 25 MG PO QHS, (Reported) Aspirin (Aspirin EC) 81 Mg Tablet.dr, 81 MG PO DAILY, (Reported) Atorvastatin Calcium (Atorvastatin Calcium) 10 Mg Tablet, 10 MG PO QHS, (Reported) Ciprofloxacin HCl (Cipro) 500 Mg Tablet, 500 MG PO BID, (Reported) Levothyroxine Sodium (Synthroid) 125 Mcg Tablet, 125 MCG PO DAILY, (Reported) Metoprolol Tartrate (Metoprolol Tartrate) 25 Mg Tablet, 12.5 MG PO BID, (Reported) Mirabegron (Myrbetriq) 25 Mg Tab.er.24h, 25 MG PO DAILY, (Reported) Omeprazole (Omeprazole) 40 Mg Capsule.dr, 40 MG PO BID, (Reported) Ramipril (Ramipril) 5 Mg Cap, 5 MG PO DAILY, (Reported) Rifaximin (Xifaxan) 550 Mg Tablet, 550 MG PO BID, (Reported) Umeclidinium [place] (Incruse Ellipta) 62.5 Mcg Blst.w.dev, 1 PUFF INH DAILY, (R eported) Scheduled PRN Albuterol Sulf (Albuterol Sulfate) 2.5 Mg/3 Ml Vial.neb, 2.5 MG INH QID PRN for SHORTNESS OF BREATH, (Reported) Albuterol Sulfate (Ventolin Hfa) 108 Mcg/Act Aer, 2 PUFFS INH QID PRN for SHORTNESS OF BREATH, (Reported) Allergies Coded Allergies: bacitracin (Verified Allergy, Severe, itching, swelling, 06/09/18) latex (Verified Allergy, Severe, itching, swelling, 06/09/18) EMMY HARRINGTON PA-C Apr 06, 2019 15:36
== END 2019-03-24 19:03 | disposition home or self-care (01) | DRG 377 ==
LOC: M ED 19:10 → M ED INP 22:51 → ENRESERV 23:12 → M PCU 03-23 01:17
PROVIDERS: ADMIT Internal Medicine; ATTEND Internal Medicine
PROC: 30233N1 Transfusion of Nonautologous Red Blood Cells into Peripheral Vein, Percutaneous Approach (ICD-10-PCS; principal; 2019-03-23)
DX: K92.2 Gastrointestinal hemorrhage, unspecified (principal); I21.4 Non-ST elevation (NSTEMI) myocardial infarction; D61.818 Other pancytopenia; J98.11 Atelectasis; K76.6 Portal hypertension; R18.8 Other ascites; D62 Acute posthemorrhagic anemia; K70.30 Alcoholic cirrhosis of liver without ascites; J44.9 Chronic obstructive pulmonary disease, unspecified; E11.9 Type 2 diabetes mellitus without complications; I10 Essential (primary) hypertension; E03.9 Hypothyroidism, unspecified; R29.6 Repeated falls; Z79.82 Long term (current) use of aspirin; Z78.0 Asymptomatic menopausal state; Z79.51 Long term (current) use of inhaled steroids; E87.6 Hypokalemia; K21.9 Gastro-esophageal reflux disease without esophagitis; Z90.49 Acquired absence of other specified parts of digestive tract; Z90.79 Acquired absence of other genital organ(s); Z98.41 Cataract extraction status, right eye; Z98.42 Cataract extraction status, left eye; Z96.653 Presence of artificial knee joint, bilateral; Z87.891 Personal history of nicotine dependence; E83.42 Hypomagnesemia; Z88.1 Allergy status to other antibiotic agents; Z91.040 Latex allergy status

== ENCOUNTER 2019-03-25 12:28 | Emergency (ER) | payer MEDICARE ==
[~2019-03-25] VITALS: Ht 160 cm; Wt 88.6 kg
[~2019-03-25 12:28] MED LIST changes: +ALBU83IN INH; +ASPI-161 PO; +ASPI81TA26; +BLOOKIT XX; +CIPR-249 PO; +INCR1INH INH; +METO1TAB87 PO; +XIFA550T PO
[2019-03-25] MEDS ORDERED: NS 1,000 ML IV SCH (12:36)
[2019-03-25 13:03] LABS: BASO % 0.1 % (0.0-1.0); HEMATOCRIT 25.8 % (36.0-47.0); HEMOGLOBIN 7.6 g/dl (12.0-15.5); LYMPH # 0.8 10^3/uL (1.5-5.0); MEAN CORPUSCULAR HEMOGLOBIN 27.9 pg (27.0-33.0); MEAN CORPUSCULAR HGB CONC 29.5 g/dl (32.0-36.5); MEAN CORPUSCULAR VOLUME 94.9 fl (80.0-96.0); MONO % 12.5 % (0.0-5.0); NEUTROPHILS # 6.1 10^3/uL (1.5-8.5); RED BLOOD COUNT 2.72 10^6/uL (4.00-5.40); WHITE BLOOD COUNT 7.9 10^3/uL (4.0-10.0)
[2019-03-25 13:04] LABS: PLATELET COUNT, AUTOMATED 60 10^3/uL (150-450)
--- NOTE | 2019-03-25 13:06 | REP ---
CT of the brain without IV contrast: Comparisons are 03/22/2019 and 12/06/2009. There is no hemorrhage. There is no edema, mass effect or midline shift. The cortical stripe is unremarkable. There are bilateral basal ganglia calcifications, unchanged, likely physiologic. Impression: Essentially negative CT study of the brain. There is no change from prior studies. Electronically Signed by Jv Yee MD 03/25/2019 12:57 P
[2019-03-25 13:10] LABS: ABG BASE EXCESS 2.4 (-2.0-2.0); ABG HCO3 27.3 MEQ/L (22.0-26.0); ABG PARTIAL PRESSURE CO2 43.7 mmHg (35.0-45.0); ABG PARTIAL PRESSURE O2 70.6 mmHg (75.0-100.0); ABG STANDARD HCO3 26.6 MEQ/L (22.0-26.0); ABG TOTAL CO2 28.6 MEQ/L (23.0-31.0); ABG pH (ARTERIAL) 7.413 UNITS (7.350-7.450)
--- NOTE | 2019-03-25 13:12 | REP ---
Portable chest, single AP view with the patient supine: Comparison is 03/22/2019. The lung shields are clear. The cardiac size and mediastinum are magnified by positioning. Skeletal structures are unremarkable. Impression: No acute cardiopulmonary findings. Electronically Signed by Jv Yee MD 03/25/2019 01:04 P
--- NOTE | 2019-03-25 13:14 | REP ---
AP pelvis two views: No pelvic fractures are identified. Mineralization is normal. The sacroiliac articulations and hip articulations are unremarkable. There are calcifications, likely phleboliths. Impression: Negative AP pelvis. Right hip two views: There is no fracture or dislocation. The joint space is unremarkable. There are no calcifications. Impression: Negative right hip. Electronically Signed by Jv Yee MD 03/25/2019 01:06 P
[2019-03-25 13:35] LABS: ACETAMINOPHEN LEVEL < 2.0 UG/ML (10.0-30.0); ALBUMIN 2.6 GM/DL (3.2-5.2); ALT/SGPT 54 U/L (12-78); BILIRUBIN,DIRECT 0.7 MG/DL (0.0-0.2); BILIRUBIN,TOTAL 1.6 MG/DL (0.2-1.0); BLOOD UREA NITROGEN 20 MG/DL (7-18); CALCIUM LEVEL 7.6 MG/DL (8.8-10.2); CARBON DIOXIDE LEVEL 27 MEQ/L (21-32); CHLORIDE LEVEL 104 MEQ/L (98-107); CK-MB VALUE MASS 13.4 NG/ML (<3.6); CPK CREATINE PHOSPHOKINASE 287 U/L (26-192); CREATININE FOR GFR 1.12 MG/DL (0.55-1.30); ETHYL ALCOHOL (ETHANOL) < 0.003 % (0.000-0.010); GLOMERULAR FILTRATION RATE 49.6 (>32); GLUCOSE, FASTING 144 MG/DL (70-100); MB/CK RELATIVE INDEX 4.67 (< OR =4); POTASSIUM SERUM 4.5 MEQ/L (3.5-5.1); SALICYLATE LEVEL < 1.7 MG/DL (5.0-30.0); SODIUM LEVEL 138 MEQ/L (136-145); THYROID STIMULATING HORMONE 0.027 uIU/ML (0.358-3.740); TOTAL PROTEIN 6.2 GM/DL (6.4-8.2); TROPONIN I 5.01 NG/ML (< 0.10)
[2019-03-25] MEDS ORDERED: CIPR-249 PO (14:57)
[2019-03-25 15:58] VITALS: BP 120/61
--- NOTE | 2019-03-25 21:50 | ECGEPIP ---
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
== END 2019-03-25 16:00 | disposition short-term general hospital (02) ==
LOC: M ED 12:28 → EDBD 12:28 → M ED 16:00
DX: D64.9 Anemia, unspecified (principal); R79.89 Other specified abnormal findings of blood chemistry; E11.9 Type 2 diabetes mellitus without complications; I10 Essential (primary) hypertension; K21.9 Gastro-esophageal reflux disease without esophagitis; Z79.899 Other long term (current) drug therapy; Z79.82 Long term (current) use of aspirin; Z88.1 Allergy status to other antibiotic agents; Z91.040 Latex allergy status
CPT/HCPCS: 36415; 36600; 70450; 71045; 73502; 80048; 80076; 82550; 82553; 82803; 83605; 84443; 84484; 85025; 85049; 85055; 93005; 93041; 99291; G0480

== ENCOUNTER → 2019-04-26 | Outpatient (REF) | payer MEDICARE | LOC: M LAB REF 13:30 | PROVIDERS: ATTEND Internal Medicine | DX: D50.9 Iron deficiency anemia, unspecified (principal); K74.69 Other cirrhosis of liver ==

== ENCOUNTER 2019-06-05 23:13 | Emergency (ER) | payer MEDICARE ==
[~2019-06-05] VITALS: Ht 160 cm; Wt 91.4 kg
[2019-06-05] MEDS ORDERED: MAGN50TA (23:56)
[2019-06-05] MEDS ORDERED: CLOP75TA2 (23:56)
[2019-06-05] MEDS ORDERED: LISI-1046 (23:56)
[2019-06-05] MEDS ORDERED: POTA1TAB23 (23:56)
[2019-06-05] MEDS ORDERED: LEVO100T5 (23:56)
[2019-06-06 00:10] LABS: EOS % 0.5 % (0.0-3.0); HEMATOCRIT 22.9 % (36.0-47.0); LYMPH # 0.4 10^3/uL (1.5-5.0); LYMPH % 9.4 % (24.0-44.0); MEAN CORPUSCULAR HEMOGLOBIN 26.2 pg (27.0-33.0); MEAN CORPUSCULAR HGB CONC 29.3 g/dl (32.0-36.5); MEAN CORPUSCULAR VOLUME 89.5 fl (80.0-96.0); MONO # 0.4 10^3/uL (0.0-0.8); MONO % 11.6 % (0.0-5.0); NEUTROPHILS # 2.9 10^3/uL (1.5-8.5); NEUTROPHILS % 78.2 % (36.0-66.0); RED BLOOD COUNT 2.56 10^6/uL (4.00-5.40); WHITE BLOOD COUNT 3.7 10^3/uL (4.0-10.0)
[2019-06-06] MEDS ORDERED: NITROGLYCERIN 0.4 MG SUBL TABLET SL PRN (00:15)
[2019-06-06] MEDS ORDERED: ASPIRIN 81 MG CHEW TABLET PO ONE (00:15)
[2019-06-06 00:16] LABS: INR 1.38; PROTHROMBIN TIME 16.7 SECONDS (11.8-14.0)
[2019-06-06 00:17] LABS: HEMOGLOBIN 6.7 g/dl (12.0-15.5); PLATELET COUNT, AUTOMATED 49 10^3/uL (150-450)
[2019-06-06 00:23] LABS: ALBUMIN 2.4 GM/DL (3.2-5.2); ALT/SGPT 34 U/L (12-78); BILIRUBIN,DIRECT 0.4 MG/DL (0.0-0.2); BILIRUBIN,TOTAL 0.8 MG/DL (0.2-1.0); BLOOD UREA NITROGEN 12 MG/DL (7-18); CALCIUM LEVEL 8.6 MG/DL (8.8-10.2); CARBON DIOXIDE LEVEL 28 MEQ/L (21-32); CHLORIDE LEVEL 108 MEQ/L (98-107); CK-MB VALUE MASS 1.1 NG/ML (<3.6); CPK CREATINE PHOSPHOKINASE 69 U/L (26-192); CREATININE FOR GFR 0.84 MG/DL (0.55-1.30); GLOMERULAR FILTRATION RATE > 60.0 (>32); GLUCOSE, FASTING 129 MG/DL (70-100); LIPASE 88 U/L (73-393); MB/CK RELATIVE INDEX 1.59 (< OR =4); POTASSIUM SERUM 4.4 MEQ/L (3.5-5.1); SODIUM LEVEL 141 MEQ/L (136-145); TOTAL PROTEIN 6.5 GM/DL (6.4-8.2); TROPONIN I 0.08 NG/ML (< 0.10)
--- NOTE | 2019-06-06 00:24 | REPVR ---
PROCEDURE INFORMATION: Exam: CT Head Without Contrast Exam date and time: 06/06/2019 12:08 AM Age: 84 years old Clinical indication: Dizziness; Additional info: Syncope TECHNIQUE: Imaging protocol: Computed tomography of the head without contrast. Radiation optimization: All CT scans at this facility use at least one of these dose optimization techniques: automated exposure control; mA and/or kV adjustment per patient size (includes targeted exams where dose is matched to clinical indication); or iterative reconstruction. COMPARISON: CT Head without contrast 03/25/2019 12:45 PM FINDINGS: Brain: No intracranial hemorrhage. No evidence of acute infarction. Diffuse cortical volume loss. White matter hypodensities consistent with chronic small vessel ischemic changes. Ventricles: No hydrocephalus. Bones/joints: Unremarkable. No acute fracture. Sinuses: Visualized sinuses are unremarkable. No fluid levels. Mastoid air cells: No mastoid effusion. Soft tissues: Unremarkable. Vasculature: Atherosclerosis. IMPRESSION: 1. No acute intracranial abnormality. 2. Nonacute/incidental findings in the report. Electronically signed by: Abisai Lawson On 06/06/2019 00:24:30 AM
[2019-06-06] MEDS ORDERED: NS 1,000 ML IV ONE (00:45)
[2019-06-06 00:46] LABS: ETHYL ALCOHOL (ETHANOL) < 0.003 % (0.000-0.010)
[2019-06-06 01:45] VITALS: BP 100/50
[2019-06-06 02:00] VITALS: BP 96/51
--- NOTE | 2019-06-06 02:27 | REP ---
Clinical: For acute chest pain . Comparison: 03/22/2019 . Findings: The mediastinum and cardiac silhouette are stable and within normal limits for portable technique. The lung shields are clear without acute consolidation, effusion, or pneumothorax. Skeletal structures are intact. Impression: No acute cardiopulmonary process appreciated. Electronically Signed by Kahlil Cabrera MD 06/06/2019 02:18 A
--- NOTE | 2019-06-06 09:15 | ECGEPIP ---
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
== END 2019-06-06 02:20 | disposition short-term general hospital (02) ==
LOC: M ED 23:13 → EDBD 23:13 → M ED 06-06 02:20
DX: K92.2 Gastrointestinal hemorrhage, unspecified (principal); I25.2 Old myocardial infarction; Z79.899 Other long term (current) drug therapy; Z79.01 Long term (current) use of anticoagulants; Z79.890 Hormone replacement therapy; Z88.1 Allergy status to other antibiotic agents; Z91.040 Latex allergy status
CPT/HCPCS: 36430; 70450; 71045; 80053; 82248; 82550; 82553; 83690; 84484; 85025; 85049; 85055; 85610; 86850; 86900; 86901; 86920; 93005; 93041; 94760; 96360; 96361; 99285; G0480; P9016

== ENCOUNTER → 2019-11-13 | Outpatient (CLI) | payer MEDICARE ==
[~2019-11-13] MED LIST changes: -AMLO10TA5 PO; +AMLO1TAB25 PO; +CLOP75TA2; +LEVO100T5; +LISI2.5T2; +MAGN50TA; +POTA1TAB23
--- NOTE | 2019-11-22 09:50 | REP ---
ABDOMINAL ULTRASOUND WITH DUPLEX DOPPLER EVALUATION OF PORTAL VASCULATURE HISTORY: Cirrhosis. TECHNIQUE: Real-time sonographic evaluation of the abdomen is performed. FINDINGS: The patient has had a prior cholecystectomy. There is no intrahepatic or extrahepatic biliary dilatation. Common bile duct measuring 6 mm. Liver demonstrates diffuse heterogeneous coarsened echotexture with no gross mass. Pancreas is not seen due to overlying bowel gas. Spleen is upper limits of normal in size 10.6 x 13.0 x 5.1 cm. Kidneys are normal in size and echotexture, right kidney measuring 11.0 x 4.3 x 4.7 cm and the left kidney 11.0 x 5.6 x 5.5 cm. There is no renal mass or hydronephrosis. Abdominal aorta could not be visualized due to overlying bowel gas. No ascites is seen. Real-time ultrasound evaluation and duplex Doppler interrogation of the portal vasculature is performed. The central splenic vein and the superior mesenteric vein could not be visualized due to overlying bowel gas. The main portal vein is normal in caliber measuring 12 mm. Velocity in the main portal vein is 23.7 cm/s. Right portal venous branches are not well visualized. There is patent left portal vein. Peak systolic velocity of the main hepatic artery in 102.3 cm/s. Velocity in the peripheral splenic vein is 15.2 cm/s. There is normal direction of flow in the portal venous system. Hepatic veins demonstrate no thrombus with portalization of waveforms. IMPRESSION: Diffuse heterogeneous coarsened echotexture of the liver with no gross mass. No biliary dilatation status post cholecystectomy. Spleen upper limits of normal in size. No ascites. Normal direction of flow in portal vasculature. Portions of the portal system are not well seen due to bowel gas and patient body habitus. MTDD
== END ==
LOC: M RAD 09:17
PROVIDERS: ATTEND Specialist
DX: K70.30 Alcoholic cirrhosis of liver without ascites (principal); K55.20 Angiodysplasia of colon without hemorrhage; K31.819 Angiodysplasia of stomach and duodenum without bleeding; Z90.49 Acquired absence of other specified parts of digestive tract

== ENCOUNTER → 2019-12-01 | Outpatient (REF) | payer MEDICARE ==
[2019-12-04 14:18] LABS: PERCENT SATURATION 60.3 % (13.2-45.0)
== END ==
LOC: M LAB REF 12:36
PROVIDERS: ATTEND Internal Medicine
DX: D50.9 Iron deficiency anemia, unspecified (principal)

== ENCOUNTER → 2020-06-09 | Outpatient (CLI) | payer MEDICARE ==
[~2020-06-09] MED LIST changes: -AMIT25TA PO; +AMIT25TA17 PO
== END ==
LOC: M LABSMTC 11:37
PROVIDERS: ATTEND Internal Medicine Cardiovascular Disease
DX: Z20.822 Contact with and (suspected) exposure to COVID-19 (principal)

== ENCOUNTER → 2020-07-16 | Outpatient (REF) | payer MEDICARE ==
[2020-07-16 17:29] LABS: INR 1.34; PROTHROMBIN TIME 16.9 SECONDS (12.5-14.3)
[2020-07-16 18:43] LABS: PERCENT SATURATION 17.4 % (13.2-45.0)
== END ==
LOC: M LAB REF 16:24
PROVIDERS: ATTEND Internal Medicine
DX: K74.69 Other cirrhosis of liver (principal); D50.9 Iron deficiency anemia, unspecified

== ENCOUNTER → 2020-07-31 | Outpatient (CLI) | payer MEDICARE ==
--- NOTE | 2020-07-31 12:16 | REP ---
INDICATION: CIRRHOSIS. COMPARISON: Multiple TECHNIQUE: Transabdominal and intercostal scanning FINDINGS: Multiple ultrasonographic images of the liver show the hepatic parenchymal echo texture to have a coarsened appearance status quo. Note is again made of a nodular hepatic surface. There are no focal masses. There is no intrahepatic ductal dilatation. The common bile duct measures approximately 4 mm in its greatest transverse dimension. Images of the pancreatic region show no gross abnormality. There is no evidence of free fluid. The imaged portion of the right kidney is unremarkable. IMPRESSION: Once again, there is evidence of cirrhotic hepatic features. No significant change in appearance of the liver when compared to the latest prior exam of 11/13/2019. Accredited by the [employer] in General Ultrasound. <Electronically signed by Devonte Mac > 07/31/20 [id number]
== END ==
LOC: M RAD 10:41
PROVIDERS: ATTEND Internal Medicine Cardiovascular Disease
DX: K70.30 Alcoholic cirrhosis of liver without ascites (principal)

== ENCOUNTER 2020-08-27 23:52 | Inpatient (IN) | payer MEDICARE ==
[~2020-08-27] VITALS: Ht 157.5 cm; Wt 106.8 kg
[2020-08-28] VITALS (21 sets, daily range): BP systolic 95–146; BP diastolic 45–70
[2020-08-28] MEDS ORDERED: PROTPAK PO (00:10)
[2020-08-28] MEDS ORDERED: NS 1,000 ML IV ONE (00:10)
[2020-08-28 00:20] LABS: BASO % 0.4 % (0.0-1.0); EOS # 0.2 10^3/uL (0.0-0.5); EOS % 3.6 % (0.0-3.0); HEMATOCRIT 23.7 % (36.0-47.0); LYMPH # 1.3 10^3/uL (1.5-5.0); LYMPH % 24.2 % (24.0-44.0); MEAN CORPUSCULAR HEMOGLOBIN 27.6 pg (27.0-33.0); MEAN CORPUSCULAR HGB CONC 29.1 g/dl (32.0-36.5); MEAN CORPUSCULAR VOLUME 94.8 fl (80.0-96.0); MONO # 0.6 10^3/uL (0.0-0.8); MONO % 11.6 % (2.0-8.0); NEUTROPHILS # 3.3 10^3/uL (1.5-8.5); WHITE BLOOD COUNT 5.5 10^3/uL (4.0-10.0)
[2020-08-28 00:53] LABS: HEMOGLOBIN 6.9 g/dl (12.0-15.5); PLATELET COUNT, AUTOMATED 53 10^3/uL (150-450)
[2020-08-28 00:57] LABS: ALBUMIN 2.4 GM/DL (3.2-5.2); ALT/SGPT 35 U/L (12-78); BILIRUBIN,DIRECT 0.5 MG/DL (0.0-0.2); BILIRUBIN,TOTAL 1.2 MG/DL (0.2-1.0); BLOOD UREA NITROGEN 15 MG/DL (7-18); CALCIUM LEVEL 7.4 MG/DL (8.8-10.2); CARBON DIOXIDE LEVEL 24 MEQ/L (21-32); CHLORIDE LEVEL 111 MEQ/L (98-107); GLOMERULAR FILTRATION RATE 45.7 (>32); GLUCOSE, FASTING 108 MG/DL (70-100); NT-PRO BNP 957 PG/ML (<450); POTASSIUM SERUM 4.2 MEQ/L (3.5-5.1); SODIUM LEVEL 142 MEQ/L (136-145); TOTAL PROTEIN 5.9 GM/DL (6.4-8.2)
[2020-08-28 00:57] LABS: RSV AMPLIFICATION NEGATIVE (NEGATIVE)
[2020-08-28 00:58] LABS: ETHYL ALCOHOL (ETHANOL) < 0.003 % (0.000-0.010)
--- NOTE | 2020-08-28 02:32 | REPVR ---
PROCEDURE INFORMATION: Exam: XR Chest Exam date and time: 08/28/2020 12:38 AM Age: 85 years old Clinical indication: Pain; Angina pectoris; Additional info: Chest pain TECHNIQUE: Imaging protocol: XR of the chest. Views: 1 view. COMPARISON: CR PORTABLE CHEST X-RAY 06/05/2019 11:51 PM FINDINGS: Tubes, catheters and devices: Leads overlie the chest. Lungs: Bibasilar atelectatic change/infiltrates. There is an increase in interstitial markings bilaterally, which is nonspecific. Possible etiologies include interstitial edema and atypical infection. Pleural spaces: No pleural effusion. No pneumothorax. Heart/Mediastinum: The cardiac silhouette appears mildly enlarged. Vasculature: There is atherosclerotic calcification of the aortic arch. Mild increased tortuosity of the thoracic aorta. Bones/joints: Stable compared to the prior study. IMPRESSION: 1. Bibasilar atelectatic change/infiltrates. 2. There is an increase in interstitial markings bilaterally, which is nonspecific. Possible etiologies include interstitial edema and atypical infection. Clinical correlation is recommended. 3. The cardiac silhouette appears mildly enlarged. Electronically signed by: Garret Cason On 08/28/2020 02:31:29 AM
[2020-08-28] MEDS ORDERED: GLUCAGON INJ 1MG VIAL SC PRN (03:35)
[2020-08-28] MEDS ORDERED: DEXTROSE 50% 50 ML SYRINGE IV PRN (03:35)
[2020-08-28] MEDS ORDERED: MAALOX 30 ML SUSP *UDC PO PRN (03:35)
[2020-08-28] MEDS ORDERED: ACETAMINOPHEN TAB 650MG DOSE (2X325MG) PO PRN (03:35)
[2020-08-28] MEDS ORDERED: MOM 30ML SUSPENSION UDC PO PRN (03:35)
[2020-08-28] MEDS ORDERED: GLUCOSE 4GM CHEW TABLET PO PRN (03:35)
--- NOTE | 2020-08-28 03:41 | HPEPDOC ---
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 Patient states that her symptoms began approximately 4 days and have progressively gotten worse until she felt the need to call ems today and be brought to the hospital. Per EMS, johnie rosales was unresponsive upon their arrival, however she rapidly became alert when she was to be moved onto the stretcher. Patient states that her symptoms are worse with activity and "stress" and are relieved with rest and staying still. Patient states that also approximately four days ago, she began to notice herself having dark, tarry stools. Patient states that before four days ago, she was having regular bowel movements. Patient also admits to some nausea and one episode of non-bloody emesis. Patient states that she has also been having dizzy spells, especially with change of posture. Patient at this time denies syncope, headaches, vision changes, weakness, recent falls, hematemesis, brbpr, fevers, chills, cough. Patient found to have hb of 6.9 and positive guaiac in the ed. Of note, patient also found to have troponin of 0.07 and lactic acid of 3.2.] PAST MEDICAL HISTORY: 1. [See HPI PAST SURGICAL HISTORY: 1. [B/l cataract removal with lens implants]. 2. [Hysterectomy]. 3. [Bladder reconstruction 4. B/l knee total arthroplasty]. SOCIAL HISTORY: Tobacco use:[denies] ETOH: [former] Illicit drug use: [denies] FAMILY HISTORY: Father - carcinomas Mother - cirrhosis ALLERGIES: Please see below. REVIEW OF SYSTEMS: CONSTITUTIONAL: [See HPI]. HEENT: [Denies uri sx]. CARDIOVASCULAR: [See HPI]. RESPIRATORY: [See HPI]. GASTROINTESTINAL: [See HPI]. GENITOURINARY: [Denies dysuria]. SKIN: [Denies rash]. MUSCULOSKELETAL: [Denies acute joint/back pain]. NEUROLOGICAL: [See HPI]. ENDOCRINE: [Hx of DM2]. HEMATOLOGIC/LYMPHATIC: [Denies easy bruising]. HOME MEDICATIONS: Please see below. PHYSICAL EXAMINATION: VITAL SIGNS: Please see below. GENERAL APPEARANCE: [This is an 85 y/o female with mild pallor. She is laying in bed and does not appear to be in any acute respiratory distress.]. HEENT: [No mass or lesion. EOMI. No scleral icterus. Nares patent. oral mucosa dry without erythema.]. CARDIOVASCULAR: [Regular rate, rhythm. 4/6 blowing murmur appreciated.]. LUNGS: [Decreased breath sounds b/l. No wheezing, rales, rhonchi.]. ABDOMEN: [Soft, nontender]. MUSCULOSKELETAL: [No joint deformity noted]. EXTREMITIES: [No peripheral edema. No overlying skin changes. Pulses intact.]. NEUROLOGICAL: [Speech clear. A+Ox3. No focal deficits.]. PSYCHIATRIC: [Mood and affect appear appropriate.]. LABORATORY DATA: See below. IMAGING: [CXR: FINDINGS: Tubes, catheters and devices: Leads overlie the chest. Lungs: Bibasilar atelectatic change/infiltrates. There is an increase in interstitial markings bilaterally, which is nonspecific. Possible etiologies include interstitial edema and atypical infection. Pleural spaces: No pleural effusion. No pneumothorax. Heart/Mediastinum: The cardiac silhouette appears mildly enlarged. Vasculature: There is atherosclerotic calcification of the aortic arch. Mild increased tortuosity of the thoracic aorta. Bones/joints: Stable compared to the prior study. IMPRESSION: 1. Bibasilar atelectatic change/infiltrates. 2. There is an increase in interstitial markings bilaterally, which is nonspecific. Possible etiologies include interstitial edema and atypical infection. Clinical correlation is recommended. 3. The cardiac silhouette appears mildly enlarged. ] MICROBIOLOGY: Please see below. 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 Patient found to have hb of 6.9 and positive guaiac in the ed. Of note, patient also found to have troponin of 0.07 and lactic acid of 3.2.]. . PLAN: 1. [Symptomatic anemia 2/2 gi bleeding - patient found to have hb of 6.9 in the ed. pt has GAVE syndrome with a hx of chronic gi bleed - will give PRBC's. Goal HB in this patient is 8 d/t cad - will give protonix iv bid - will trend h/h - npo overnight - day team can consider surgical consult - admit to med surg with tele for tx 2. Elevated troponin - Likely 2/2 heart failure/aortic stenosis - Patient has elevated bnp of 957, mild vascular congestion on cxr - Cardiology, Dr. Carpenter, was consulted by the ED who said this is most likely not STEMI - monitor is and os, daily weights for chf - will trend troponin 3. Lactic acidosis - most likely secondary to volume depletion - fluid bolus given in ED, will await repeat 4. COPD - Patient does not appear to be in acute exacerbation - continue at home inhalers 5. Cirrhosis - Liver function stable. - continue rifaximin 6. CAD - stable for now, trending trops as stated 7. DM2 - sliding scale coverage - hypoglycemic protocol 8. HTN - continue metoprolol, lisinopril 9. HLD - continue atorvastatin 10. Hypothyroidism - continue levothyroxine DVT prophylaxis - Mechanical d/t bleeding]. Vital Signs Vital Signs Date Time Temp Pulse Resp B/P (MAP) Pulse Ox O2 Delivery O2 Flow Rate FiO2 08/28/20 02:07 87 20 99 Nasal Cannula 3.0 08/28/20 02:00 121/54 (76) 08/28/20 00:34 98.6 Laboratory Data Labs 24H Laboratory Tests 2 08/28/20 00:07: Lactic Acid Level 3.2*H 08/28/20 00:08: Immature Granulocyte % (Auto) 0.2, Neutrophils (%) (Auto) 60.0, Lymphocytes (%) (Auto) 24.2, Monocytes (%) (Auto) 11.6H, Eosinophils (%) (Auto) 3.6H, Basophils (%) (Auto) 0.4, Neutrophils # (Auto) 3.3, Lymphocytes # (Auto) 1.3L, Monocytes # (Auto) 0.6, Eosinophils # (Auto) 0.2, Basophils # (Auto) 0.0, Nucleated Red Blood Cells % (auto) 0.0, Immature Platelet Fraction 12.3H, Anion Gap 7L, Glomerular Filtration Rate 45.7, Calcium Level 7.4L, Total Bilirubin 1.2H, Direct Bilirubin 0.5H, Aspartate Amino Transf (AST/SGOT) 45H, Alanine Aminotransferase (ALT/SGPT) 35, Alkaline Phosphatase 208H, AW-Uhi-K-Type Natriuretic Peptide 957H, Total Protein 5.9L, Albumin 2.4L, Albumin/Globulin Ratio 0.7L, Ethyl Alcohol Level < 0.003 08/28/20 00:09: Coronavirus (COVID-19)(PCR) NEGATIVE, Influenza Type A (RT-PCR) NEGATIVE, Influenza Type B (RT-PCR) NEGATIVE, Respiratory Syncytial Virus (PCR) NEGATIVE 08/28/20 00:15: Bedside Glucose (Misc Panel) 108 08/28/20 00:38: POC Troponin I (Misc) 0.07 08/28/20 00:50: POC pH (Misc Panel) 7.360, POC Base Excess (Misc Panel) -3.0L, POC Saturated Percent O2 (Misc) 97, POC pO2 (Misc Panel) 97.0, POC pCO2 (Misc Panel) 39.9, POC HCO3 (Misc Panel) 22.6, POC Total CO2 (Misc Panel) 24.0 CBC/BMP Laboratory Tests 08/28/20 00:08 Home Medications Scheduled Amitriptyline HCl (Amitriptyline HCl) 25 Mg Tablet, 25 MG PO QHS Atorvastatin Calcium (Atorvastatin Calcium) 10 Mg Tablet, 10 MG PO QHS Levothyroxine Sodium (Synthroid) 100 Mcg Tablet, 100 MCG PO DAILY Lisinopril (Lisinopril) 2.5 Mg Tablet, 2.5 MG PO DAILY Magnesium Gluconate (Magnesium Gluconate) 27 Mg Tablet, 1 TAB PO BID Metoprolol Tartrate (Metoprolol Tartrate) 25 Mg Tablet, 12.5 MG PO BID Mirabegron (Myrbetriq) 25 Mg Tab.er.24h, 25 MG PO QHS Pantoprazole Sodium (Pantoprazole Sodium) 40 Mg Tablet.dr, 40 MG PO BID Potassium Chloride (Potassium Chloride) 10 Meq Tab.er.prt, 10 MEQ PO DAILY Rifaximin (Xifaxan) 550 Mg Tablet, 550 MG PO BID Umeclidinium [place] (Incruse Ellipta) 62.5 Mcg Blst.w.dev, 1 PUFF INH DAILY Scheduled PRN Albuterol Sulf (Albuterol Sulfate) 2.5 Mg/3 Ml Vial.neb, 2.5 MG INH QID PRN for SHORTNESS OF BREATH Albuterol Sulfate (Ventolin Hfa) 108 Mcg/Act Aer, 2 PUFFS INH QID PRN for SHORTNESS OF BREATH Allergies Coded Allergies: bacitracin (Verified Allergy, Severe, itching, swelling, 06/09/18) latex (Verified Allergy, Severe, itching, swelling, 06/09/18) A-FIB/CHADSVASC A-FIB History Current/History of A-Fib/PAF?: No Attending Note Attending Note Time of service 5:20 AM is a 85 yr old w CAD/NSTEMI, chronic anemia, recurrent GI bleeds ( h emorrhoids, diverticulosis suspected gastritis), alcoholic liver cirrhosis with portal HTN, ascites, pancytopenia, COPD, DM2, HTN and hypothyroidism who is presented with complaints of dyspnea with exertion and chest discomfort. Her physical exam was only remarkable for generalized pallor. She will be admitted for symptomatic acute on chronic blood loss anemia. She reports having GI procedures done at [facility]. We will request records. Rest per ELMO Bragg's H&P DUC BRAGG Aug 28, 2020 03:41 PAVAN CHAVEZ MD Aug 28, 2020 06:24
[2020-08-28] MEDS ORDERED: ONDANSETRON 4MG/2ML VIAL IV PRN (04:25)
[2020-08-28] MEDS ORDERED: PANT40TA29 PO (05:47)
[2020-08-28] MEDS ORDERED: POTA10TA17 PO (05:47)
[2020-08-28] MEDS ORDERED: SYNT100T PO (05:47)
[2020-08-28] MEDS ORDERED: MAGN500T6 PO (05:47)
[2020-08-28] MEDS ORDERED: LISI2.5T8 PO (05:47)
[2020-08-28] MEDS ORDERED: ALBUTEROL 90 MCG/ACT 8GM HFA INHALER INH PRN (05:50)
[2020-08-28] MEDS ORDERED: ALBUTEROL SULFATE 2.5 MG/0.5 ML INH NEB SOLN INH PRN (05:50)
[2020-08-28] MEDS: LEVOTHYROXINE 100MCG TABLET (0.1MG) PO SCH (06:00)
[2020-08-28] MEDS: HumaLOG INSULIN (NovoLOG) PER UNIT SC SCH ×4 (06:00→23:55)
[2020-08-28] MEDS: PANTOPRAZOLE 40MG VIAL (C9113 PER 1) IV SCH ×2 (08:45→20:24)
[2020-08-28] MEDS: DOCUSATE SODIUM 100MG CAPSULE PO SCH ×2 (08:45→20:27)
[2020-08-28] MEDS: POTASSIUM CHLORIDE 10 MEQ SR TABLET PO SCH (08:45)
[2020-08-28] MEDS: MAGNESIUM GLUCONATE 500 MG TAB PO SCH ×2 (08:45→20:27)
[2020-08-28] MEDS: rifAXIMin 550 MG TAB (XIFAXAN) PO SCH ×2 (08:45→20:27)
[2020-08-28 09:56] LABS: INR 1.3; PARTIAL THROMBOPLASTIN TIME 33.1 SECONDS (24.2-38.5); PROTHROMBIN TIME 16.5 SECONDS (12.5-14.3)
[2020-08-28] MEDS: METOPROLOL TART 12.5 MG PER 1/2 TAB PO SCH ×2 (09:58→20:27)
[2020-08-28] MEDS: LISINOPRIL *2.5 MG* TAB PO SCH (09:58)
[2020-08-28 10:11] LABS: MB/CK RELATIVE INDEX 0.65 (< OR =4); TROPONIN I 0.05 NG/ML (< 0.10)
[2020-08-28 17:49] LABS: HEMATOCRIT 32.5 % (36.0-47.0)
[2020-08-28 17:51] LABS: HEMOGLOBIN 10.1 g/dl (12.0-15.5)
[2020-08-28 18:26] LABS: CK-MB VALUE MASS < 1.0 NG/ML (<3.6); CPK CREATINE PHOSPHOKINASE 146 U/L (26-192); MB/CK RELATIVE INDEX 0.68 (< OR =4); TROPONIN I 0.02 NG/ML (< 0.10)
--- NOTE | 2020-08-28 20:08 | ECGEPIP ---
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
[2020-08-28] MEDS ORDERED: AMITRIPTYLINE 25MG TABLET PO SCH (21:00)
[2020-08-28] MEDS ORDERED: ATORVASTATIN 10 MG TAB PO SCH (21:00)
[2020-08-29] VITALS: BP 119/58
[2020-08-29 00:23] LABS: HEMATOCRIT 32.1 % (36.0-47.0)
[2020-08-29 02:53] LABS: CK-MB VALUE MASS 1.7 NG/ML (<3.6); MB/CK RELATIVE INDEX 1.3 (< OR =4); TROPONIN I 0.03 NG/ML (< 0.10)
[2020-08-29 04:00] VITALS: BP 126/57
[2020-08-29] MEDS: LEVOTHYROXINE 100MCG TABLET (0.1MG) PO SCH (05:26)
[2020-08-29] MEDS: HumaLOG INSULIN (NovoLOG) PER UNIT SC SCH (05:43)
[2020-08-29 06:18] LABS: HEMOGLOBIN 10.4 g/dl (12.0-15.5); MEAN CORPUSCULAR HEMOGLOBIN 28.3 pg (27.0-33.0); MEAN CORPUSCULAR HGB CONC 30.6 g/dl (32.0-36.5); MEAN CORPUSCULAR VOLUME 92.6 fl (80.0-96.0); RED BLOOD COUNT 3.67 10^6/uL (4.00-5.40); WHITE BLOOD COUNT 6.1 10^3/uL (4.0-10.0)
[2020-08-29 06:19] LABS: PLATELET COUNT, AUTOMATED 47 10^3/uL (150-450)
[2020-08-29 06:45] LABS: ALBUMIN 2.7 GM/DL (3.2-5.2); BILIRUBIN,TOTAL 3.6 MG/DL (0.2-1.0); CALCIUM LEVEL 7.8 MG/DL (8.8-10.2); CREATININE FOR GFR 0.98 MG/DL (0.55-1.30); GLOMERULAR FILTRATION RATE 57.7 (>32); MAGNESIUM LEVEL 1.9 MG/DL (1.8-2.4); POTASSIUM SERUM 4.4 MEQ/L (3.5-5.1); TOTAL PROTEIN 6.2 GM/DL (6.4-8.2)
[2020-08-29 08:00] VITALS: BP 126/58
[2020-08-29] MEDS: POTASSIUM CHLORIDE 10 MEQ SR TABLET PO SCH (08:29)
[2020-08-29] MEDS: PANTOPRAZOLE 40MG VIAL (C9113 PER 1) IV SCH (08:29)
[2020-08-29] MEDS: MAGNESIUM GLUCONATE 500 MG TAB PO SCH (08:29)
[2020-08-29 08:30] VITALS: BP 126/58
[2020-08-29] MEDS: LISINOPRIL *2.5 MG* TAB PO SCH (08:30)
[2020-08-29] MEDS: DOCUSATE SODIUM 100MG CAPSULE PO SCH (08:30)
[2020-08-29] MEDS: rifAXIMin 550 MG TAB (XIFAXAN) PO SCH (08:30)
[2020-08-29] MEDS: METOPROLOL TART 12.5 MG PER 1/2 TAB PO SCH (08:30)
--- NOTE | 2020-08-29 11:47 | DSES ---
DISCHARGE SUMMARY DATE OF ADMISSION: 08/27/2020 DATE OF DISCHARGE: 08/29/2020 [employer] BY TELEPHONE: General surgeon, JAMARI SUMMERS M.D. DISCHARGE DIAGNOSIS: 1. 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 Follows with a handle sander operator. 2. History of coronary artery disease. 3. Aortic stenosis. 4. Hyperlipidemia. 5. Diabetes. 6. Liver cirrhosis. 7. Hypothyroidism. 8. COPD. 9. MACHELLE, on 3 liters of home oxygen with chronic hypoxic respiratory failure. Patient was admitted on 08/28/2020 due to complaints of symptomatic anemia with chest tightness and shortness of breath for the past four days and black tarry stools. Patient was found to have a hemoglobin of 6.9, positive guaiac in the Emergency Room and lactic acidosis of 3.2. The patient was admitted for acute symptomatic anemia secondary to acute upper GI bleed with elevated troponin. The patient was given intravenous fluids, Protonix, intravenously and Octreotide, was given 4 units of RBC transfusion which resulted in an increase in hemoglobin from admission of 6.9 to a discharge of 10.4 and hematocrit of 34 from admission hematocrit of 23.7. The patient had no recurrent GI bleed during the hospital admission, lactic acidosis resolved with IV fluids. Patient did not have any signs of acute infection with negative chest x-ray and respiratory panel. She was back to her baseline after four RBC transfusions. She otherwise denied any shortness of breath, chest pain, pressure or tightness despite a slight positive troponin on admission of 0.05. The patient had remained negative at 0.003 troponin with no complaints of chest pain or shortness of breath. The patient is discharged in stable condition with outpatient follow-up with her handle sander operator and monitoring of repeat hemoglobin by her primary care physician. Patient was instructed to call her primary care physician if her current GI bleed recurred or to come back to the Emergency Room for further evaluation. PHYSICAL EXAMINATION ON DISCHARGE: VITAL SIGNS: Temperature 98.5, pulse 75, respiratory rate 20, blood pressure 126/58, 95% on three liters nasal cannula. GENERAL: Patient is awake, alert and oriented x3, no pallor or icterus, or jaundice. LUNGS: Clear to auscultation. No wheezing, rales or rhonchi. HEART: S1 and S2, sinus rhythm. ABDOMEN: Obese, soft, nontender, nondistended. EXTREMITIES: No cyanosis, clubbing or pitting edema. DISCHARGE LABORATORY DATA: Microbiology, imaging studies: Please see the chart. TIME SPENT ON DISCHARGE: 30 minutes
== END 2020-08-29 11:15 | disposition home or self-care (01) | DRG 378 ==
LOC: M ED 23:52 → UNDOADMIN 23:53 → M RR INP 23:53 → ENRESERV 08-28 04:04 → M PCU 08-28 04:50
PROVIDERS: ADMIT Internal Medicine; ATTEND General Practice
PROC: 30233N1 Transfusion of Nonautologous Red Blood Cells into Peripheral Vein, Percutaneous Approach (ICD-10-PCS; principal; 2020-08-28)
DX: K31.811 Angiodysplasia of stomach and duodenum with bleeding (principal); E87.2 Acidosis; J96.11 Chronic respiratory failure with hypoxia; D62 Acute posthemorrhagic anemia; I35.0 Nonrheumatic aortic (valve) stenosis; J44.9 Chronic obstructive pulmonary disease, unspecified; E03.9 Hypothyroidism, unspecified; G47.33 Obstructive sleep apnea (adult) (pediatric); I25.10 Atherosclerotic heart disease of native coronary artery without angina pectoris; E78.5 Hyperlipidemia, unspecified; E11.9 Type 2 diabetes mellitus without complications; Z98.41 Cataract extraction status, right eye; Z98.42 Cataract extraction status, left eye; Z96.653 Presence of artificial knee joint, bilateral; I10 Essential (primary) hypertension

== ENCOUNTER → 2020-09-03 | Outpatient (CLI) | payer MEDICARE ==
[~2020-09-03] MED LIST changes: +FERR1TAB8 PO; -LISI2.5T2; +LISI2.5T8 PO; +LISI2.5T9; +MAGN1CAP PO; +MAGN500T6 PO; -OMEP-221 PO; +OMEP40CA5 PO; +PANT40TA29 PO; +POTA10TA17 PO; +PROTPAK PO; +SUCR1TA PO; +SYNT100T PO
== END ==
LOC: M WUC 11:18
PROVIDERS: ATTEND Family Medicine
DX: R05 Cough (principal); R91.8 Other nonspecific abnormal finding of lung field

== ENCOUNTER 2020-11-07 15:34 | Inpatient (IN) | payer MEDICARE ==
[~2020-11-07] VITALS: Ht 157.5 cm; Wt 101.2 kg
[~2020-11-07 15:34] MED LIST changes: -FERR1TAB8 PO; -MAGN1CAP PO; -SUCR1TA PO
[2020-11-07 17:10] LABS: VENOUS BASE EXCESS 2.9 (-2.0-2.0); VENOUS O2 SATURATION 98.8 % (60.0-80.0); VENOUS PARTIAL PRESSURE CO2 45.9 mmHg (38.0-50.0); VENOUS PARTIAL PRESSURE O2 141.5 mmHg (30.0-50.0); VENOUS PH 7.403 UNITS (7.330-7.430); VENOUS STANDARD HCO3 27.1 MEQ/L; VENOUS TOTAL CO2 29.4 MEQ/L (24.0-28.0)
[2020-11-07 19:28] LABS: GLUCOSE, FASTING 99 MG/DL (70-100)
[2020-11-07 19:29] LABS: ALT/SGPT 30 IU/L (0-32); BLOOD UREA NITROGEN 11 MG/DL (7-18); CALCIUM LEVEL 8.1 MG/DL (8.8-10.2); CARBON DIOXIDE LEVEL 27 mmol/L (20-29); CHLORIDE LEVEL 111 MEQ/L (98-107); CREATININE FOR GFR 0.82 MG/DL (0.55-1.30); GLOMERULAR FILTRATION RATE > 60.0 (>32); SODIUM LEVEL 140 MEQ/L (136-145)
[2020-11-07 19:30] LABS: ALBUMIN 2.2 GM/DL (3.2-5.2); BILIRUBIN,DIRECT 0.6 MG/DL (0.0-0.2); BILIRUBIN,TOTAL 1.6 MG/DL (0.2-1.0); CK-MB VALUE MASS 1.2 NG/ML (<3.6); CPK CREATINE PHOSPHOKINASE 105 U/L (26-192); MB/CK RELATIVE INDEX 1.14 (< OR =4); NT-PRO BNP 901 PG/ML (<450); TROPONIN I < 0.02 NG/ML (< 0.10)
[2020-11-07 19:31] LABS: THYROID STIMULATING HORMONE < 0.005 uIU/ML (0.358-3.740)
[2020-11-07 20:01] LABS: BASO % 0.2 % (0.0-1.0); EOS # 0.2 10^3/uL (0.0-0.5); EOS % 5.5 % (0.0-3.0); HEMATOCRIT 24.7 % (36.0-47.0); HEMOGLOBIN 7.6 g/dl (12.0-15.5); LYMPH # 0.9 10^3/uL (1.5-5.0); LYMPH % 22.1 % (24.0-44.0); MEAN CORPUSCULAR HGB CONC 30.8 g/dl (32.0-36.5); MEAN CORPUSCULAR VOLUME 100.8 fl (80.0-96.0); MONO # 0.8 10^3/uL (0.0-0.8); MONO % 18.8 % (2.0-8.0); NEUTROPHILS # 2.2 10^3/uL (1.5-8.5); NEUTROPHILS % 53.2 % (36.0-66.0); RED BLOOD COUNT 2.45 10^6/uL (4.00-5.40); WHITE BLOOD COUNT 4.2 10^3/uL (4.0-10.0)
[2020-11-07 20:02] LABS: PLATELET COUNT, AUTOMATED 42 10^3/uL (150-450)
[2020-11-07] MEDS ORDERED: FUROSEMIDE 40MG/4ML VIAL (J1940) IV ONE (20:25)
[2020-11-07] MEDS: HumaLOG INSULIN (NovoLOG) PER UNIT SC SCH (21:00)
[2020-11-07] MEDS ORDERED: HOME MED LIST COMPLETE! XX SCH (22:15)
[2020-11-07] MEDS ORDERED: SODIUM CHLORIDE 0.9% 1000ML IV SCH (22:25)
[2020-11-07] MEDS ORDERED: GLUCOSE 4GM CHEW TABLET PO PRN (22:25)
[2020-11-07] MEDS ORDERED: ACETAMINOPHEN TAB 650MG DOSE (2X325MG) PO PRN (22:25)
[2020-11-07] MEDS ORDERED: MAALOX 30 ML SUSP *UDC PO PRN (22:25)
[2020-11-07] MEDS ORDERED: ALBUTEROL 90 MCG/ACT 8GM HFA INHALER INH PRN (22:25)
[2020-11-07] MEDS ORDERED: ALBUTEROL SULFATE 2.5 MG/0.5 ML INH NEB SOLN INH PRN (22:25)
[2020-11-07] MEDS ORDERED: DEXTROSE 50% 50 ML SYRINGE IV PRN (22:25)
[2020-11-07] MEDS ORDERED: GLUCAGON INJ 1MG VIAL SC PRN (22:25)
[2020-11-07] MEDS ORDERED: MOM 30ML SUSPENSION UDC PO PRN (22:25)
[2020-11-07 22:49] LABS: FERRITIN 26 NG/ML (8-252); IRON (FE) 41 UG/DL (50-170); PERCENT SATURATION 13.4 % (13.2-45.0); TOTAL IRON BINDING CAPACITY 307 UG/DL (250-450)
[2020-11-07 23:00] LABS: FOLATE 13.4 NG/ML; VITAMIN B12 LEVEL 829 PG/ML
[2020-11-07 23:20] LABS: INR 1.31; PROTHROMBIN TIME 16.8 SECONDS (12.7-14.5)
[2020-11-07 23:21] LABS: PARTIAL THROMBOPLASTIN TIME 37.1 SECONDS (25.9-37.0)
[2020-11-07] MEDS: PANTOPRAZOLE 40MG TAB (PROTONIX) PO SCH (23:24)
[2020-11-07] MEDS: METOPROLOL TART 12.5 MG PER 1/2 TAB PO SCH (23:25)
[2020-11-07] MEDS ORDERED: OCTREOTIDE ACETATE 1,200 MCG in NS 238.8 ML IV SCH (23:30)
[2020-11-07 23:34] VITALS: BP 111/53
[2020-11-07] MEDS: AMITRIPTYLINE 25MG TABLET PO SCH (23:41)
[2020-11-07] MEDS: rifAXIMin 550 MG TAB (XIFAXAN) PO SCH (23:41)
[2020-11-07 23:54] VITALS: BP 109/59
[2020-11-08] VITALS (8 sets, daily range): BP systolic 106–166; BP diastolic 50–92
[2020-11-08] MEDS: LEVOTHYROXINE 100MCG TABLET (0.1MG) PO SCH (06:45)
[2020-11-08] MEDS: HumaLOG INSULIN (NovoLOG) PER UNIT SC SCH ×4 (07:30→20:19)
[2020-11-08 09:00] LABS: HEMATOCRIT 28.4 % (36.0-47.0); HEMOGLOBIN 8.8 g/dl (12.0-15.5); MEAN CORPUSCULAR HEMOGLOBIN 30.8 pg (27.0-33.0); MEAN CORPUSCULAR VOLUME 99.3 fl (80.0-96.0); RED BLOOD COUNT 2.86 10^6/uL (4.00-5.40); WHITE BLOOD COUNT 5.6 10^3/uL (4.0-10.0)
[2020-11-08] MEDS ORDERED: LISINOPRIL *2.5 MG* TAB PO SCH (09:00)
[2020-11-08 09:03] LABS: PLATELET COUNT, AUTOMATED 47 10^3/uL (150-450)
[2020-11-08 09:53] LABS: CALCIUM LEVEL 8.6 MG/DL (8.8-10.2); CREATININE FOR GFR 0.98 MG/DL (0.55-1.30); GLOMERULAR FILTRATION RATE 57.7 (>32); POTASSIUM SERUM 4.6 MEQ/L (3.5-5.1)
[2020-11-08] MEDS: PANTOPRAZOLE 40MG TAB (PROTONIX) PO SCH ×2 (09:55→20:23)
[2020-11-08] MEDS: POTASSIUM CHLORIDE 10MEQ SR TABLET PO SCH (09:55)
[2020-11-08] MEDS: METOPROLOL TART 12.5 MG PER 1/2 TAB PO SCH ×2 (09:55→20:24)
[2020-11-08] MEDS: rifAXIMin 550 MG TAB (XIFAXAN) PO SCH ×2 (09:55→20:23)
[2020-11-08 12:00] LABS: HEMOGLOBIN A1c 5.1 %
[2020-11-08 15:01] LABS: HEMOGLOBIN 7.9 g/dl (12.0-15.5); MEAN CORPUSCULAR HEMOGLOBIN 30.9 pg (27.0-33.0); MEAN CORPUSCULAR HGB CONC 31.6 g/dl (32.0-36.5); MEAN CORPUSCULAR VOLUME 97.7 fl (80.0-96.0); RED BLOOD COUNT 2.56 10^6/uL (4.00-5.40); WHITE BLOOD COUNT 4.1 10^3/uL (4.0-10.0)
[2020-11-08 15:02] LABS: PLATELET COUNT, AUTOMATED 41 10^3/uL (150-450)
[2020-11-08] MEDS: AMITRIPTYLINE 25MG TABLET PO SCH (20:23)
[2020-11-08 22:25] LABS: HEMATOCRIT 27.4 % (36.0-47.0); HEMOGLOBIN 8.7 g/dl (12.0-15.5); MEAN CORPUSCULAR HEMOGLOBIN 31.1 pg (27.0-33.0); MEAN CORPUSCULAR HGB CONC 31.8 g/dl (32.0-36.5); MEAN CORPUSCULAR VOLUME 97.9 fl (80.0-96.0); PLATELET COUNT, AUTOMATED 70 10^3/uL (150-450); WHITE BLOOD COUNT 5.2 10^3/uL (4.0-10.0)
[2020-11-09] VITALS: BP 123/56
[2020-11-09 04:00] VITALS: BP 111/52
[2020-11-09] MEDS: LEVOTHYROXINE 100MCG TABLET (0.1MG) PO SCH (05:27)
[2020-11-09 06:15] LABS: HEMATOCRIT 26.4 % (36.0-47.0); HEMOGLOBIN 8.1 g/dl (12.0-15.5); MEAN CORPUSCULAR HEMOGLOBIN 30.5 pg (27.0-33.0); MEAN CORPUSCULAR HGB CONC 30.7 g/dl (32.0-36.5); MEAN CORPUSCULAR VOLUME 99.2 fl (80.0-96.0); RED BLOOD COUNT 2.66 10^6/uL (4.00-5.40); WHITE BLOOD COUNT 4.3 10^3/uL (4.0-10.0)
[2020-11-09 06:22] LABS: PLATELET COUNT, AUTOMATED 43 10^3/uL (150-450)
[2020-11-09 06:36] LABS: CALCIUM LEVEL 7.8 MG/DL (8.8-10.2); CREATININE FOR GFR 1.05 MG/DL (0.55-1.30); GLOMERULAR FILTRATION RATE 53.3 (>32); MAGNESIUM LEVEL 1.5 MG/DL (1.8-2.4); POTASSIUM SERUM 4.4 MEQ/L (3.5-5.1)
[2020-11-09 08:40] VITALS: BP 149/66
[2020-11-09] MEDS: PANTOPRAZOLE 40MG TAB (PROTONIX) PO SCH ×2 (08:46→20:42)
[2020-11-09] MEDS: rifAXIMin 550 MG TAB (XIFAXAN) PO SCH ×2 (08:46→20:42)
[2020-11-09] MEDS: HumaLOG INSULIN (NovoLOG) PER UNIT SC SCH ×4 (08:46→20:43)
[2020-11-09] MEDS: METOPROLOL TART 12.5 MG PER 1/2 TAB PO SCH ×2 (08:46→20:42)
[2020-11-09] MEDS: POTASSIUM CHLORIDE 10MEQ SR TABLET PO SCH (08:46)
[2020-11-09 15:52] VITALS: BP 158/67
[2020-11-09 16:22] LABS: HEMOGLOBIN 8.7 g/dl (12.0-15.5); MEAN CORPUSCULAR HEMOGLOBIN 30.9 pg (27.0-33.0); MEAN CORPUSCULAR HGB CONC 31.1 g/dl (32.0-36.5); MEAN CORPUSCULAR VOLUME 99.3 fl (80.0-96.0); RED BLOOD COUNT 2.82 10^6/uL (4.00-5.40); WHITE BLOOD COUNT 4.7 10^3/uL (4.0-10.0)
[2020-11-09 16:38] LABS: PLATELET COUNT, AUTOMATED 48 10^3/uL (150-450)
[2020-11-09 20:00] VITALS: BP 168/66
[2020-11-09] MEDS: AMITRIPTYLINE 25MG TABLET PO SCH (20:42)
[2020-11-09 23:22] LABS: HEMATOCRIT 27.4 % (36.0-47.0); HEMOGLOBIN 8.5 g/dl (12.0-15.5); MEAN CORPUSCULAR HEMOGLOBIN 30.5 pg (27.0-33.0); MEAN CORPUSCULAR VOLUME 98.2 fl (80.0-96.0); RED BLOOD COUNT 2.79 10^6/uL (4.00-5.40); WHITE BLOOD COUNT 5.8 10^3/uL (4.0-10.0)
[2020-11-09 23:23] LABS: PLATELET COUNT, AUTOMATED 44 10^3/uL (150-450)
[2020-11-10] VITALS (9 sets, daily range): BP systolic 100–144; BP diastolic 46–65
[2020-11-10] MEDS: LEVOTHYROXINE 100MCG TABLET (0.1MG) PO SCH (05:06)
[2020-11-10 05:18] LABS: HEMOGLOBIN 8.1 g/dl (12.0-15.5); MEAN CORPUSCULAR HEMOGLOBIN 30.5 pg (27.0-33.0); MEAN CORPUSCULAR HGB CONC 31.2 g/dl (32.0-36.5); MEAN CORPUSCULAR VOLUME 97.7 fl (80.0-96.0); RED BLOOD COUNT 2.66 10^6/uL (4.00-5.40)
[2020-11-10 05:19] LABS: PLATELET COUNT, AUTOMATED 48 10^3/uL (150-450)
[2020-11-10 05:36] LABS: BLOOD UREA NITROGEN 9 MG/DL (7-18); CALCIUM LEVEL 7.7 MG/DL (8.8-10.2); CARBON DIOXIDE LEVEL 31 MEQ/L (21-32); CHLORIDE LEVEL 106 MEQ/L (98-107); CREATININE FOR GFR 0.85 MG/DL (0.55-1.30); GLOMERULAR FILTRATION RATE > 60.0 (>32); GLUCOSE, FASTING 124 MG/DL (70-100); MAGNESIUM LEVEL 1.4 MG/DL (1.8-2.4); POTASSIUM SERUM 4.6 MEQ/L (3.5-5.1); SODIUM LEVEL 141 MEQ/L (136-145)
[2020-11-10] MEDS: HumaLOG INSULIN (NovoLOG) PER UNIT SC SCH ×2 (07:30→11:55)
[2020-11-10] MEDS: MAG SULF 1GM/100ML (MAG RUN) 1 GM in IV 1 EA IV SCH ×2 (08:22→12:30)
[2020-11-10] MEDS: METOPROLOL TART 12.5 MG PER 1/2 TAB PO SCH (08:23)
[2020-11-10] MEDS: rifAXIMin 550 MG TAB (XIFAXAN) PO SCH (08:23)
[2020-11-10] MEDS: PANTOPRAZOLE 40MG TAB (PROTONIX) PO SCH (08:23)
[2020-11-10] MEDS: POTASSIUM CHLORIDE 10MEQ SR TABLET PO SCH (08:23)
[2020-12-06] MEDS ORDERED: FERR1TAB8 PO (13:45)
[2020-12-06] MEDS ORDERED: INCR1INH INH (13:46)
== END 2020-11-10 14:01 | disposition home or self-care (01) | DRG 812 ==
LOC: M ED 15:34 → M ED INP 15:35 → ENRESERV 11-08 00:02 → M PCU 11-08 03:10
PROVIDERS: ADMIT Internal Medicine; ATTEND Family Medicine
PROC: 30233N1 Transfusion of Nonautologous Red Blood Cells into Peripheral Vein, Percutaneous Approach (ICD-10-PCS; principal; 2020-11-10)
DX: D62 Acute posthemorrhagic anemia (principal); I50.32 Chronic diastolic (congestive) heart failure; Z68.41 Body mass index [BMI] 40.0-44.9, adult; K31.819 Angiodysplasia of stomach and duodenum without bleeding; J44.9 Chronic obstructive pulmonary disease, unspecified; J45.909 Unspecified asthma, uncomplicated; G47.33 Obstructive sleep apnea (adult) (pediatric); I27.20 Pulmonary hypertension, unspecified; I11.0 Hypertensive heart disease with heart failure; I35.0 Nonrheumatic aortic (valve) stenosis; E78.5 Hyperlipidemia, unspecified; E11.9 Type 2 diabetes mellitus without complications; Z96.653 Presence of artificial knee joint, bilateral; K74.60 Unspecified cirrhosis of liver; E03.9 Hypothyroidism, unspecified; E66.9 Obesity, unspecified; Z98.41 Cataract extraction status, right eye; Z98.42 Cataract extraction status, left eye; Z90.49 Acquired absence of other specified parts of digestive tract; Z87.891 Personal history of nicotine dependence; Z86.010 Personal history of colon polyps; D69.6 Thrombocytopenia, unspecified; Z79.899 Other long term (current) drug therapy; Z88.8 Allergy status to other drugs, medicaments and biological substances; Z91.040 Latex allergy status

== ENCOUNTER → 2020-11-15 | Outpatient (REF) | payer MEDICARE ==
[~2020-11-15] MED LIST changes: +OMEP-221 PO; -OMEP40CA5 PO
== END ==
LOC: M LAB REF 16:12
PROVIDERS: ATTEND Internal Medicine
DX: K92.2 Gastrointestinal hemorrhage, unspecified (principal)

== ENCOUNTER → 2020-12-06 | Outpatient (CLI) | payer MEDICARE ==
[~2020-12-06] MED LIST changes: +FERR1TAB8 PO
== END ==
LOC: M LABSMTC 09:30
PROVIDERS: ATTEND Anesthesiology
DX: Z01.812 Encounter for preprocedural laboratory examination (principal); Z20.822 Contact with and (suspected) exposure to COVID-19

== ENCOUNTER 2020-12-11 12:36 | Day surgery (SDC) | payer MEDICARE ==
[~2020-12-11] VITALS: Ht 160 cm; Wt 98.0 kg
[~2020-12-11 12:36] MED LIST changes: +NS 1,000 ML IV ONE
--- OUTSIDE RECORDS SUMMARY | 2020-12-11 12:44 | CCD | Continuity of Care Document ---
Author Author Marielena Barrow MD Organization Unknown Address [address] [address] Phone [phone] Care Team Providers Care Laboratory Helper Name Role Phone Ebony Lakhani AUTM [phone] Austin Rashid MD AUTM [phone] Sarahi Rojas MD AUTM [phone] Hector Barrow JR, MD AUTM Unavailable Monica Carpenter AUTM [phone] Problems Active Problems Provider Date Type 2 diabetes mellitus Hector Barrow MD Onset: 2015 Social History Type Date Description Comments Sex Unknown Tobacco Use Start: Unknown End: Unknown Patient is a former smoker 15 pack/year Allergies and adverse reactions Active Allergies Criticality Reaction | Severity Comments Date Bacitracin Unable to assess criticality rash 08/28/2015 Latex Allergy Unable to assess criticality swelling at location of contact 08/28/2015 Medications Active Medications SIG Qnty Indications Ordering Provide r Date Ferrousul 325(65Fe) mg Tablets 1 by mouth every day 90tabs Hector Barrow MD 11/15/2020 Prevnar 13 Suspension 0.5 cubic centimeters x 1 1units Hector Barrow MD 12/01/2019 Potassium Chloride ER 10Meq Tablet s ER Take One Tablet By Mouth Every Day 90tabs Sebastián Alexis 10/03/2019 Pantoprazole Sodium 40mg Tablets D R take one tablet by mouth twice a day 180tabs Hector saxena MD 08/11/2019 Lidocaine 5% Cream apply three times daily to right scapula as needed 45gm Hector Barrow MD 06/15/2019 Magnesium Oxide 400mg Tablets 1 by mouth twice every day 180tabs Hector Barrow MD 04/26/2019 Levothyroxine Sodium 100mcg Tablet s 1 by mouth every day 90tabs Hector Barrow MD 04/04/2019 Nebulizer Device use as directed COPD J44.9 1units Hector Barrow MD 03/08/2019 Incruse Ellipta 62.5mcg/Inh Aeroso l Inhale One puff By Mouth Every Day 30units Haile Busch 03/08/2019 Nebulizer Kit/Tubing/Mouthpiece K it use four times a day dx j44.9 1units Hector Barrow MD 03/02/2019 Albuterol Sulfate (2 .5mg/3ML) 0.083% Nebulizer use via aerosol neb four times a day as needed (covered under Part B) j44.9 120units Hector Barrow MD 03/02/2019 Atorvastatin Calcium 10mg Tablets 1 by mouth every day 90tabs Hector Barrow MD 05/20/2018 Ventolin HFA 108(90Base) mcg/Act A erosol 2 puffs four times a day as needed 36gm Hector mahoney MD 08/30/2017 Shingrix 50mcg Suspension Rec administer 0.5 milliliters intramuscular, repeat in 2 to 6 months 2units Hector Barrow MD 07/27/2017 Myrbetriq 25mg Tablets ER 24HR 1x daily 90tabs Hector Barrow MD 08/28/2015 Amitriptyline HCL 25mg Tablets take one tablet by mouth at bedtime Unknown Xifaxan 550mg Tablets Take One Tablet By Mouth Twice A Day 60tabs Barbara Delgadillo DO Metoprolol Tartrate 25mg Tablets Take One- Half Tablet By Mouth Twice A Day 60tabs Barbara Delgadillo DO Lisinopril 2.5mg Tablets 1 by mouth every day 90tabs Hector Barrow MD Medications Administered in Office Medication SIG Qnty Indications Ordering Provider Date Covid-19 vaccine, Unspecified Inj ection Unknown 05/30/2020 Covid-19 vaccine, Unspecified Inj ection Unknown 05/02/2020 Administration Of Flu Vaccine Inj ection Hector Barrow MD 01/19/2017 Administration Of Flu Vaccine Inj ection Hector Barrow MD 12/02/2015 Immunizations CPT Code Status Date Vaccine Lot # U-Flu Given 11/16/2019 Influenza,Unspecified [id number] Given 11/16/2019 Shingrix Zoster Vaccine (HZV), Recombinant, Subunit, Adjuvanted 56011 Given 01/19/2017 Influenza Vaccin e Quadrivalent Preser/Antibiotic Free Im Use [id number] Given 07/17/2016 Pneumovax 23 [id number] Given 12/19/2015 Prevnar 13 [id number] Given 12/02/2015 Fluvirin Virus Vaccine [id number] Vital Signs Date Vital Result Comment 11/15/2020 8:47am BP Systolic 136 mmHg BP Diastolic 80 mmHg Heart Rate 86 /min Weight 226.00 lb O2 % BldC Oximetry 94 % 2.5 liters 09/03/2020 10:34am BP Systolic 138 mmHg BP Diastolic 62 mmHg Heart Rate 73 /min Height 62.50 inches 5'2.50" Weight 230.00 lb O2 % BldC Oximetry 94 % on 3L BMI (Body Mass Index) 41.4 kg/m2 Results Test Acquired Date Facility Test Result H/L Range Note Complete Blood Count 11/22/2020 [facility] [employer]: [place] [address] [phone] WBC 3.9 x10*3/UL Low 4.1 - 10.9 RBC 3.50 x10*6/UL Low 4.20 - 6.30 Hemoglobin 10.6 g/dL Low 12.0 - 18.0 Hematocrit 32.2 % Low 37.0 - 51.0 MCV 92.1 fL 80.0 - 97.0 MCH 30.4 pg 26.0 - 32.0 MCHC 33.0 g/dL 31.0 - 38.0 RDW 15.3 % High 11.6 - 13.7 PLT 69 x10*3/UL Low 140 - 440 1 MPV 10.7 FL 7.8 - 11.0 Lymph % 28.7 % 10.0 - 58.5 Mid % 7.0 % 1.7 - 9.3 Neut % 64.3 % 37.0 - 92.0 Lymph # 1.1 x10*3/UL 0.6 - 4.1 Mid # 0.3 x10*3/UL 0.1 - 0.6 Neut # 2.5 x10*3/UL 2.0 - 7.8 Type & Screen -Incl Blood Type,Zhen,AB SC 11/15/[address] [address] [phone] Blood Type O POSITIVE Normal AB Screen (Indirect Adilia)Vis NEGATIVE Normal Total Iron Binding Capacit 11/15/[address] [address] [phone] Iron (Fe) 103 g/dL Normal 50-170 Total Iron Binding Capacity 303 g/dL Normal 250-450 Percent Saturation 34.0 % Normal 13.2-45.0 Complete Blood Count 11/15/2020 [facility] [employer] [employer]: [place] [address] [phone] WBC 4.0 x10*3/UL Low 4.1 - 10.9 RBC 3.37 x10*6/UL Low 4.20 - 6.30 Hemoglobin 10.2 g/dL Low 12.0 - 18.0 Hematocrit 30.8 % Low 37.0 - 51.0 MCV 91.5 fL 80.0 - 97.0 MCH 30.5 pg 26.0 - 32.0 MCHC 33.3 g/dL 31.0 - 38.0 RDW 15.5 % High 11.6 - 13.7 PLT 55 x10*3/UL Low 140 - 440 MPV 9.0 FL 7.8 - 11.0 Lymph % 18.7 % 10.0 - 58.5 Mid % 4.9 % 1.7 - 9.3 Neut % 76.4 % 37.0 - 92.0 Lymph # 0.7 x10*3/UL 0.6 - 4.1 Mid # 0.2 x10*3/UL 0.1 - 0.6 Neut # 3.1 x10*3/UL 2.0 - 7.8 Laboratory test finding 11/15/2020 [facility] [employer]: Dr Hector [address]g [place], [place] [id number] [phone] Magnesium 1.5 mg/dL Low 1.8 - 2.4 Comprehensive Chem Profile 11/15/2020 [facility]: Dr Hector Barrow [place], [place] [id number] [phone] Glucose 101 mg/dL High 74 - 99 2 BUN 9 mg/dL 7 - 18 Creatinine 0.9 mg/dL 0.6 - 1.3 Sodium 143 mEq/L 136 - 145 Potassium 4.4 mEq/L 3.5 - 5.1 Chloride 110 mEq/L High 98 - 107 Carbon Dioxide 29 mEq/L 21 - 32 Calcium 8.5 mg/dL 8.5 - 10.1 Alk. Phosphatase 271 mg/dL High 46 - 116 3 Total Bilirubin 1.4 mg/dL High 0.2 - 1.0 Ast (Sgot) 43 U/L High 15 - 37 Alt (SGPT) 28 U/L 12 - 78 Albumin 2.3 g/dL Low 3.4 - 5.0 Total Protein 6.2 g/dL Low 6.4 - 8.2 A/G Ratio 0.59 CALC Low 1.00 - 1.90 GFR 60 mL/min Low >60 GFR >= 60 mL/min >60 4 Laboratory test finding 11/07/2020 [facility] [address] [place] [address] [phone] NT-Pro BNP 901 pg/mL High <450 Thyroid Stimulating Hormone < 0.005 uIU/ML Low 0.358-3.740 Respiratory Panel 11/07/2020 [facility] [address] [place] [address] [phone] Respiratory Panel This respiratory <SEE NOTE> 5 Basic Metabolic Profile 11/07/2020 [facility] [address] [place] [address] [phone] Glucose, Fasting 99 mg/dL Normal 70-100 Blood Urea Nitrogen 11 mg/dL Normal 7-18 Creatinine For GFR 0.82 mg/dL Normal 0.55-1.30 Glomerular Filtration Rate > 60.0 Normal >32 6 Sodium Level 140 mEq/L Normal 136-145 Potassium Serum 5.0 mEq/L Normal 3.5-5.1 Chloride Level 111 mEq/L High 98-107 Carbon Dioxide Level 27 mmol/L Normal 20-29 Anion Gap 2 mEq/L Low 8-16 Calcium Level 8.1 mg/dL Low 8.8-10.2 [facility] Profile [facility] [address] [place] [address] [phone] Ast/Sgot 45 IU/L Normal Alt/SGPT 30 IU/L Normal 0-32 Alkaline Phosphatase 220 U/L High 45-117 Bilirubin,Total 1.6 mg/dL High 0.2-1.0 Bilirubin,Direct 0.6 mg/dL High 0.0-0.2 Total Protein 6.0 GM/DL Low 6.4-8.2 Albumin 2.2 GM/DL Low 3.2-5.2 Albumin/Globulin Ratio 0.6 Low 1.2-2.2 Cardiac Marker Panel 11/07/[address] [address] [phone] CPK Creatine Phosphokinase 105 U/L Normal 26-19 2 CK-MB Value Mass 1.2 NG/ML Normal <3.6 MB/CK Relative Index 1.14 Normal < Or =4 7 Troponin I < 0.02 NG/ML Normal < 0.10 8 Venous Blood Gas 11/07/[address] [address] [phone] Venous PH 7.403 units Normal 7.330-7.430 Venous Partial Pressure Co2 45.9 mmHg Normal 38.0-50.0 Venous Partial Pressure O2 141.5 mmHg High 30.0-50.0 Venous Total Co2 29.4 mEq/L High 24.0-28.0 Venous Hco3 28.0 mEq/L High 23.0-27.0 Venous Base Excess 2.9 High -2.0-2.0 Venous Standard Hco3 27.1 mEq/L Normal Venous O2 Saturation 98.8 % High 60.0-80.0 Laboratory test finding 11/07/[address] [address] [phone] iSTAT Troponin 0.01 NG/ML Normal 0.00-0.08 Laboratory test finding 11/07/2020 [facility] [address] [place] [address] [phone] Immature Platelet Fraction 14.9 % High 0.0-9 .59 CBC With Differential 11/07/2020 [facility] [address] [place] [address] [phone] White Blood Count 4.2 10 Normal 4.0-10.0 Red Blood Count 2.45 10 Low 4.00-5.40 Hemoglobin 7.6 g/dL Low 12.0-15.5 Hematocrit 24.7 % Low 36.0-47.0 Mean Corpuscular Volume 100.8 fl High 80.0-96.0 Mean Corpuscular Hemoglobin 31.0 pg Normal 27.0-33.0 Mean Corpuscular HGB Conc 30.8 g/dL Low 32.0-36.5 Red Cell Distribution Width 15.7 % High 11.5-14.5 Platelet Count, Automated 42 10 Low 150-450 Neutrophils % 53.2 % Normal 36.0-66.0 Lymph % 22.1 % Low 24.0-44.0 Phelps % 18.8 % High 2.0-8.0 Eos % 5.5 % High 0.0-3.0 Baso % 0.2 % Normal 0.0-1.0 Immature Granulocyte % 0.2 % Normal 0-3.0 Nucleated Red Blood Cell % 0.0 % Normal 0-0 Neutrophils # 2.2 10 Normal 1.5-8.5 Lymph # 0.9 10 Low 1.5-5.0 Phelps # 0.8 10 Normal 0.0-0.8 Eos # 0.2 10 Normal 0.0-0.5 Baso # 0.0 10 Normal 0.0-0.2 Complete Blood Count 09/03/2020 [facility] [employer]: [place] [address] [phone] WBC 3.7 x10*3/UL Low 4.1 - 10.9 9 RBC 3.53 x10*6/UL Low 4.20 - 6.30 Hemoglobin 10.1 g/dL Low 12.0 - 18.0 Hematocrit 31.0 % Low 37.0 - 51.0 MCV 87.6 fL 80.0 - 97.0 MCH 28.8 pg 26.0 - 32.0 MCHC 32.8 g/dL 31.0 - 38.0 RDW 15.8 % High 11.6 - 13.7 PLT 49 x10*3/UL Low 140 - 440 MPV 10.8 FL 7.8 - 11.0 Lymph % 24.1 % 10.0 - 58.5 Mid % 6.6 % 1.7 - 9.3 Neut % 69.3 % 37.0 - 92.0 Lymph # 0.9 x10*3/UL 0.6 - 4.1 Mid # 0.2 x10*3/UL 0.1 - 0.6 Neut # 2.6 x10*3/UL 2.0 - 7.8 Basic Metabolic Panel 09/03/2020 [facility] [employer]: Dr Hector Barrow [place] [id number] [phone] Glucose 148 mg/dL High 74 - 99 10 BUN 6 mg/dL Low 7 - 18 Creatinine 0.9 mg/dL 0.6 - 1.3 Sodium 143 mEq/L 136 - 145 Potassium 4.1 mEq/L 3.5 - 5.1 Chloride 107 mEq/L 98 - 107 Carbon Dioxide 32 mEq/L 21 - 32 Calcium 8.3 mg/dL Low 8.5 - 10.1 GFR 60 mL/min Low >60 GFR >= 60 mL/min >60 11 Total Iron Binding Capacit 07/16/[address] [address] [phone] Iron (Fe) 64 g/dL Normal 50-170 Total Iron Binding Capacity 367 g/dL Normal 250-450 Percent Saturation 17.4 % Normal 13.2-45.0 Prothrombin Time/Inr 07/16/2020 [facility] [address] [place] [address] [phone] Prothrombin Time 16.9 seconds High 12.5-14.3 Inr 1.34 Normal 12 Laboratory test finding 07/16/2020 [facility] [address] [place], [place] [address] [phone] Ammonia 64 uMOL/L High <32 Complete Blood Count 07/16/2020 [facility] [employer]: Dr Hector Barrow [place] [id number] [phone] WBC 4.0 x10*3/UL Low 4.1 - 10.9 RBC 3.19 x10*6/UL Low 4.20 - 6.30 Hemoglobin 9.1 g/dL Low 12.0 - 18.0 Hematocrit 27.5 % Low 37.0 - 51.0 MCV 86.1 fL 80.0 - 97.0 MCH 28.4 pg 26.0 - 32.0 MCHC 33.0 g/dL 31.0 - 38.0 RDW 15.0 % High 11.6 - 13.7 PLT 53 x10*3/UL Low 140 - 440 13 MPV 10.5 FL 7.8 - 11.0 Lymph % 25.3 % 10.0 - 58.5 Mid % 7.4 % 1.7 - 9.3 Neut % 67.3 % 37.0 - 92.0 Lymph # 1.0 x10*3/UL 0.6 - 4.1 Mid # 0.3 x10*3/UL 0.1 - 0.6 Neut # 2.7 x10*3/UL 2.0 - 7.8 A1c 07/16/2020 [facility] [employer] [employer]: [place] [address] [phone] Hba1c 5.5 % <5.7 14 Est Avg Glucose 111 mg/dL High 60 - 110 Comprehensive Chem Profile 07/16/2020 [facility] [employer] [employer]: [place] [address] [phone] Glucose 121 mg/dL High 74 - 99 15 BUN 8 mg/dL 7 - 18 Creatinine 1.0 mg/dL 0.6 - 1.3 Sodium 139 mEq/L 136 - 145 Potassium 3.9 mEq/L 3.5 - 5.1 Chloride 104 mEq/L 98 - 107 Carbon Dioxide 28 mEq/L 21 - 32 Calcium 8.1 mg/dL Low 8.5 - 10.1 Alk. Phosphatase 253 mg/dL High 46 - 116 Total Bilirubin 2.3 mg/dL High 0.2 - 1.0 Ast (Sgot) 43 U/L High 15 - 37 Alt (SGPT) 34 U/L 12 - 78 Albumin 2.8 g/dL Low 3.4 - 5.0 Total Protein 6.6 g/dL 6.4 - 8.2 A/G Ratio 0.74 CALC Low 1.00 - 1.90 GFR 53 mL/min Low >60 GFR >= 60 mL/min >60 16 Lipid Profile 07/16/2020 [facility] [employer]: Dr Hector Barrow [place], [place] [address] [phone] Cholesterol 97 mg/dL Low 131 - 200 Triglycerides 47 mg/dL 30 - 150 HDL Cholesterol 70 mg/dL High 35 - 60 LDL (Calculated) INVALID CALC 50 - 159 Laboratory test finding 07/16/2020 [facility] [employer]: Dr Hector [address] [place], [place] [address] [phone] Thyroid Stimulating Hormone 0.04 uIU/mL Low 0.3 6 - 3.74 Coronavirus 2019 Nasopharygeal 06/09/2020 [place] [address] [place], [place] [address] [phone] Coronavirus 2019 Nasopharygeal ASSAY INFORMATIO <SEE N OTE> 17 1 NOTE: RESULT VERIFIED. 2 100-125 mg/dL PRE-DIABET ES/FASTING >126 mg/dL DIABETES/FASTING 3 NOTE: ALK PHOS,T.BILI,AST,ALBU,T.PROTEIN...VERIFIED 4 CHRONIC KIDNEY DISEASE STAGI NG PER NKF STAGE I & II GFR >= 60 NORMAL TO MILDLY DECREASED STAGE III GFR 30-59 MODERATELY DECREASED STAGE IV GFR 15-29 SEVERELY DECREASED STAGE V GFR <15 VERY LITTLE GFR LEFT ESRD GFR <15 ON HEALTHCARE FINANCIAL ANALYST 5 This respiratory PCR panel d etects Influenza A H1, H3 and 2009 H1 viruses, Influenza B virus, Resp iratory Syncytial Virus, Human metapneumovirus, Parainfluenza virus 1, 2, 3 and 4, Adenovirus, Rhinovirus/Enterovirus, Coronavirus HKU1, NL63, OC43, 229E and SARS-CoV-2 (COVID 19), Bordetella pertussis, Bordetella parapertussis, Mycoplasma pneumoniae and Chlamydia pneumoniae. NEGATIVE by MULTIPLEXED NUCLEIC ACID PCR SARS-CoV-2 (COVID 19) NEGATIVE - SARS-CoV-2 (COVID19) 6 Units are mL/min/1.73 m2 Chronic Kidney Disease Staging per NKF: Stage I & II GFR >=60 Normal to Mildly Decreased Stage III GFR 30-59 Moderately Decreased Stage IV GFR 15-29 Severely Decreased Stage V GFR <15 Very Little GFR Left ESRD GFR <15 on HEALTHCARE FINANCIAL ANALYST 7 DIAGNOSIS CRITERIA MMB ng/ml Relative Index (RI) NON-AMI < or = 5 N/A ZEPEDA ZONE > 5 < or = 4 AMI > 5 > 4 8 Troponin I Reference Interva l for [employer] LOCI: 99th Percentile= 0.00-0.045 ng/ml Risk Stratification: <= 0.10 ng/ml Decreased Risk for Adverse Clinical Events. 0.10-1.50 ng/ml Increased Risk for Adv erse Clinical Events. Evaluation of additional criterion and/or repeat testing in 2-6 hours is suggested to rule out myocardial damage. >= 1.50 ng/ml Indicative of Myocardial Injury. 9 NOTE: CBC AND PLATELET VEREIFIED 10 100-125 mg/dL PRE-DIABET ES/FASTING >126 mg/dL DIABETES/FASTING 11 CHRONIC KIDNEY DISEASE STAGI NG PER NKF STAGE I & II GFR >= 60 NORMAL TO MILDLY DECREASED STAGE III GFR 30-59 MODERATELY DECREASED STAGE IV GFR 15-29 SEVERELY DECREASED STAGE V GFR <15 VERY LITTLE GFR LEFT ESRD GFR <15 ON HEALTHCARE FINANCIAL ANALYST 12 THERAPUTIC HUMAN INR VALUES INDICATIONS NORMAL RANGES PROPHYLAXIS/TREATMENT OF: VENOUS THROMBOSIS 2.0-3.0 PULMONARY EMBOLISM 2.0-3.0 PREVENTION OF SYSTEMIC EMBOLISM FROM: TISSUE HEART VALVES 2.0-3.0 ACUTE MYOCARDIAL INFARCTION 2.0-3.0 VALVULAR HEART DISEASE 2.0-3.0 ATRIAL FIBRILLATION 2.0-3.0 MECHANICAL VALVES(HIGH RISK) 2.5-3.5 RECURRENT MYOCARDIAL INFARCTION 2.5-3.5 13 NOTE: RESULT VERIFIED. 14 Lab Result Notes: Pre-Diabetes 5.7 - 6.4 % Diabetes = or > 6.5% 15 100-125 mg/dL PRE-DIABET ES/FASTING >126 mg/dL DIABETES/FASTING 16 CHRONIC KIDNEY DISEASE STAGI NG PER NKF STAGE I & II GFR >= 60 NORMAL TO MILDLY DECREASED STAGE III GFR 30-59 MODERATELY DECREASED STAGE IV GFR 15-29 SEVERELY DECREASED STAGE V GFR <15 VERY LITTLE GFR LEFT ESRD GFR <15 ON HEALTHCARE FINANCIAL ANALYST 17 ASSAY INFORMATION: Real Time RT-PCR NOTE: The COVID-19 assay has been cleared by the U.S. Food and Drug Administration under the Emergency Use Authorization (EUA). [employer] and [facility] are designated as high complexity laboratories by the Clinical Laboratory Improvement Amendments of 1988(CLIA) and are qualified to perform this test. Not Detected Procedures Date Code Description Status 11/15/2020 95266 Trans Care SRV W/I 14D Of DC, Co mm W/I 2 Dys Med Rec Completed 09/03/2020 52166 Aparicio Cre SRV W/I 7 Days Of DC, C omm W/I 2 Dys Med Rec Completed 07/16/2020 24187 Office/Outpatient Established Mo d MDM 30-39 Min Completed 05/09/2018 692068250 Diabetic Retinal Eye Exam Comple symone 04/18/2018 [id number] Diabetic Retinal Eye Exam Comple symone 10/26/2017 [id number] Colonoscopy Completed 04/13/2016 [id number] Diabetic Retinal Eye Exam Comple symone 03/25/2016 [id number] Diabetic Retinal Eye Exam Comple symone 03/19/2016 [id number] Diabetic Retinal Eye Exam Comple symone Medical Devices Description No Information Available Encounters Type Date Location Provider Dx Diagnosis Office Visit 11/15/2020 8:40a [facility] MD K31.811 Angiodysplasia of stomach and duodenum w ith bleeding I85.01 Esophageal varices with blee ding D50.9 Iron deficiency anemia, unsp ecified K74.69 Other cirrhosis of liver I35.0 Nonrheumatic aortic (valve) stenosis J44.9 Chronic obstructive pulmonar y disease, unspecified J96.11 Chronic respiratory failure with hypoxia Z99.81 Dependence on supplemental o xygen E03.9 Hypothyroidism, unspecified E11.42 Type 2 diabetes mellitus wit h diabetic polyneuropathy E83.42 Hypomagnesemia Office Visit 09/03/2020 10:20a [facility]EL[facility] Hamlin JR K31.811 Angiodysplasia of stomach an d duodenum with bleeding 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 J44.9 Chronic obstructive pulmonar y disease, unspecified J96.11 Chronic respiratory failure with hypoxia Z99.81 Dependence on supplemental o xygen I35.0 Nonrheumatic aortic (valve) stenosis I85.01 Esophageal varices with blee ding D50.9 Iron deficiency anemia, unsp ecified K74.69 Other cirrhosis of liver E11.42 Type 2 diabetes mellitus wit h diabetic polyneuropathy E03.9 Hypothyroidism, unspecified Office Visit 07/16/2020 [facility]p [facility] J44.9 Chronic obstructive pulmonary disease, u nspecified J96.11 Chronic respiratory failure with hypoxia Z99.81 Dependence on supplemental o xygen I35.0 Nonrheumatic aortic (valve) stenosis 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 K92.2 Gastrointestinal hemorrhage, unspecified I85.01 Esophageal varices with blee ding D50.9 Iron deficiency anemia, unsp ecified K74.69 Other cirrhosis of liver E11.42 Type 2 diabetes mellitus wit h diabetic polyneuropathy Z13.89 Encounter for screening for other disorder E03.9 Hypothyroidism, unspecified E66.01 Morbid (severe) obesity due to excess calories Z68.41 Body mass index [BMI] 40.0-4 4.9, adult Assessments Date Code Description Provider 11/15/2020 K31.811 Angiodysplasia of stomach and du odenum with bleeding Hector Barrow MD 11/15/2020 I85.01 Esophageal varices with bleeding Hector Barrow MD 11/15/2020 D50.9 Iron deficiency anemia, unspecif ied Hector Barrow MD 11/15/2020 K74.69 Other cirrhosis of liver Hector Barrow MD 11/15/2020 I35.0 Nonrheumatic aortic (valve) sten osis Hector Barrow MD 11/15/2020 J44.9 Chronic obstructive pulmonary di sease, unspecified Hector Barrow MD 11/15/2020 J96.11 Chronic respiratory failure with hypoxia Hector Barrow MD 11/15/2020 Z99.81 Dependence on supplemental oxyge n Hector Barrow MD 11/15/2020 E03.9 Hypothyroidism, unspecified Dorina gwendolyn Barrow MD 11/15/2020 E11.42 Type 2 diabetes mellitus with di abetic polyneuropathy Hector Barrow MD 11/15/2020 E83.42 Hypomagnesemia Hector saxena MD 09/03/2020 K31.811 Angiodysplasia of stomach and du odenum with bleeding Kashmir Valles JR, ELMO 09/03/2020 I25.10 Atherosclerotic hear t disease of [place] coronary artery without angina pectoris ELMO Felix JR 09/03/2020 J44.9 Chronic obstructive pulmonary di sease, unspecified Kashmir Valles JR, ELMO 09/03/2020 J96.11 Chronic respiratory failure with hypoxia Kashmir Valles JR, ELMO 09/03/2020 Z99.81 Dependence on supplemental oxyge n ELMO Felix JR 09/03/2020 I35.0 Nonrheumatic aortic (valve) sten osis ELMO Felix JR 09/03/2020 I85.01 Esophageal varices with bleeding ELMO Felix JR 09/03/2020 D50.9 Iron deficiency anemia, unspecif ied Kashmir Valles JR, ELMO 09/03/2020 K74.69 Other cirrhosis of liver ELMO Felix JR 09/03/2020 E11.42 Type 2 diabetes mellitus with di abetic polyneuropathy ELMO Felix JR 09/03/2020 E03.9 Hypothyroidism, unspecified Robe ELMO Rodriguez JR 07/16/2020 J44.9 Chronic obstructive pulmonary di sease, unspecified Hector Barrow MD 07/16/2020 J96.11 Chronic respiratory failure with hypoxia Hector Barrow MD 07/16/2020 Z99.81 Dependence on supplemental oxyge n Hector Barrow MD 07/16/2020 I35.0 Nonrheumatic aortic (valve) sten osis Hector Barrow MD 07/16/2020 I25.10 Atherosclerotic hear t disease of [place] coronary artery without angina pectoris Hector Barrow MD 07/16/2020 K92.2 Gastrointestinal hemorrhage, uns pecified Hector Barrow MD 07/16/2020 I85.01 Esophageal varices with bleeding Hector Barrow MD 07/16/2020 D50.9 Iron deficiency anemia, unspecif ied Hector Barrow MD 07/16/2020 K74.69 Other cirrhosis of liver Hector Barrow MD 07/16/2020 E11.42 Type 2 diabetes mellitus with di abetic polyneuropathy Hector Barrow MD 07/16/2020 Z13.89 Encounter for screening for othe r disorder Hector Barrow MD 07/16/2020 E03.9 Hypothyroidism, unspecified Dorina gwendolyn Barrow MD 07/16/2020 E66.01 Morbid (severe) obesity due to e xcess calories Hector Barrow MD 07/16/2020 Z68.41 Body mass index [BMI]40.0-44.9, adult Hector Barrow MD Plan of Treatment Future Appointment(s):* 11/29/2020 10:40 am - Lab Schedule at [facility] * 12/16/2020 2:00 pm - Hector Barrow MD at [facility] 07/16/2020 - Hector Barrow MD* J44.9 Chronic obstructive pulmonary disease, unspecified * J96.11 Chronic respiratory failure with hypoxia * Z99.81 Dependence on supplemental oxygen * I35.0 Nonrheumatic aortic (valve) stenosis * I25.10 Atherosclerotic heart disease of [place] coronary artery without angina pectoris * K92.2 Gastrointestinal hemorrhage, unspecified * I85.01 Esophageal varices with bleeding * D50.9 Iron deficiency anemia, unspecified * K74.69 Other cirrhosis of liver * E11.42 Type 2 diabetes mellitus with diabetic polyneuropathy * Z13.89 Encounter for screening for other disorder * E03.9 Hypothyroidism, unspecified * E66.01 Morbid (severe) obesity due to excess calories * Z68.41 Body mass index [BMI]40.0-44.9, adult Functional Status Description No Information Available Mental Status Description No Information Available Referrals Description No Information Available
--- OUTSIDE RECORDS SUMMARY | 2020-12-11 12:44 | CCD | Continuity of Care Document ---
Author Author Marielena RICO M.D. Organization Unknown Address [address] [place] [address] Phone [phone] Care Team Providers Care Clinical Molecular Geneticist Name Role Phone Hector Barrow M.D. AUTM [phone] Problems Active Problems Provider Date Upper gastrointestinal bleeding Nitin Rico M.D. Ons et: 11/26/2020 Anemia Nitin Rico M.D. Onset: 10/06/19 18 Social History Type Date Description Comments Sex Unknown ETOH Use Occasionally Tobacco Use Start: Unknown End: Unknown Patient is a former smoker QUIT 8 YEARS AGO Allergies and adverse reactions Description No Known Drug Allergies Medications Active Medications SIG Qnty Indications Ordering Provide r Date Omeprazole 40mg Capsules DR 1 by mouth b.i.d. 30caps Hector Barrow M.D. 0 Albuterol Sulfate (2 .5mg/3ML) 0.083% Nebulizer use via aerosol neb four times a day as needed 120units Hector Barrow M.D. 03/02/2019 Atorvastatin Calcium 10mg Tablets 1 by mouth every day 90tabs Hector Barrow M.D. 9 Levothyroxine Sodium 150mcg Tablet s Take One Tablet By Mouth Every Day as Directed Unknow n Myrbetriq 25mg Tablets ER 24HR Take One Tablet By Mouth Every Day Unknown Amitriptyline HCL 25mg Tablets Take One Tablet By Mouth Every Night Unknown 00 Xifaxan 550mg Tablets 1 b.i.d . 60tabs Unknown Metoprolol Tartrate 25mg Tablets 1/2 tab b.i.d. Unknown Potassium Chloride ER 10Meq Tablet s ER Take One Tablet By Mouth Once Daily Unknown Lisinopril 2.5mg Tablets Take One Tablet By Mouth Every Day Unknown Incruse Ellipta 62.5mcg/Inh Aerosol Hector Barrow M.D. Mag-G 500(27Mg) mg Tablets Take One Tablet By Mouth Twice A Day Unknown Nebulizer Unknown Immunizations Description No Information Available Vital Signs Date Vital Result Comment 11/26/2020 2:36pm Height 62 inches 5'2" Weight 220.00 lb BP Systolic 133 mmHg BP Diastolic 70 mmHg Heart Rate 72 /min BMI (Body Mass Index) 40.2 kg/m2 Weight 99.792 kg Body Temperature 97.2 F 10/05/2017 9:40am Height 62 inches 5'2" Weight 205.00 lb BP Systolic 143 mmHg BP Diastolic 74 mmHg Heart Rate 87 /min BMI (Body Mass Index) 37.5 kg/m2 Weight 92.988 kg Results Description No Information Available Procedures Date Code Description Status 11/26/2020 22386 Office/Outpatient New Low MDM 30 -44 Minutes Completed Medical Devices Description No Information Available Encounters Type Date Location Provider Dx Diagnosis Office Visit 11/26/2020 2:00p Main Office Nitin Rico M.D. D 64.9 Anemia, unspecified Assessments Date Code Description Provider 11/26/2020 D64.9 Anemia Nitin hayes M.D. Plan of Treatment Future Appointment(s):* 12/06/2020 6:00 am - Negin-Nichol at Main Office * 12/11/2020 2:30 pm - Nitin Rico M.D. at Main Office 11/26/2020 - Nitin Rico M.D.* D64.9 Anemia* Comments:* 85 yo wf who presents for an egd + Apc for GAVE. Pt was admitted for anemia. She had 5 units of packed cells. No c/o abdominal pain, weight loss, change in bowel habits, or rectal bleeding. No family h/o colon cancer. No h/o chest pain, or sob. Plan:1. Egd + APC2. Informed consent. Functional Status Description No Information Available Mental Status Description No Information Available Referrals Description No Information Available
--- OUTSIDE RECORDS SUMMARY | 2020-12-11 12:44 | CCD | Continuity of Care Document ---
Author Author Lab Marielena Mccray Organization Unknown Address [address] [address] Phone Unavailable Care Team Providers Care Missile And Missile Checkout Technician Name Role Phone Ebony Lakhani AUTM [phone] Austin Rashid MD AUTM [phone] Sarahi Rojas MD AUTM [phone] Hector Barrow JR, MD AUTM Unavailable MelissaKeo vinsonsonido AUTM [phone] Problems Active Problems Provider Date Type 2 [...] Tablet By Mouth Twice A Day 60tabs Barbaar Delgadillo DO Lisinopril 2.5mg Tablets 1 by mouth every day 90tabs Hector Barrow MD Medications Administered in Office Medication SIG Qnty Indications Ordering Provider Date Covid-19 vaccine, Unspecified Inj ection Unknown 05/30/2020 Covid-19 vaccine, Unspecified Inj ection Unknown 05/02/2020 Administration Of Flu Vaccine Inj doc Barrow MD 01/19/2017 Administration Of Flu Vaccine Inj doc Barrow MD 12/02/2015 Immunizations CPT Code Status Date Vaccine Lot # U-Flu Given 11/16/2019 Influenza,Unspecified [id number] Given 11/16/2019 Shingrix Zoster Vaccine (HZV), Recombinant, Subunit, Adjuvanted 81856 Given 01/19/2017 Influenza Vaccin e Quadrivalent Preser/Antibiotic Free Im Use [id number] [id number] Given 07/17/2016 Pneumovax 23 [id number] [id number] Given 12/19/2015 Prevnar 13 [id number] Given 12/02/2015 Fluvirin Virus Vaccine [id number] 01 Vital Signs Date Vital Result Comment [...] H/L Range Note Complete Blood Count 11/22/2020 [facility] Commissioned Sales Associate: [place] [address] [phone] WBC 3.9 x10*3/UL Low 4.1 - 10.9 [...] & Screen -Incl Blood Type,Zhen,AB SC 11/15/[address] [id number] [phone] Blood Type O POSITIVE Normal AB Screen (Indirect Adilia)Vis NEGATIVE Normal Total Iron Binding Capacit 11/15/[address] [address] [phone] Iron (Fe) 103 g/dL Normal 50-170 Total Iron Binding Capacity 303 g/dL Normal 250-450 Percent Saturation 34.0 % Normal 13.2-45.0 Complete Blood Count 11/15/2020 [facility] Commissioned Sales Associate: [place] [address] [phone] WBC 4.0 x10*3/UL Low 4.1 - 10.9 [...] 2.0 - 7.8 Laboratory test finding 11/15/2020 [facility] Commissioned Sales Associate: Dr Young [place] [id number] [phone] Magnesium 1.5 mg/dL Low 1.8 - 2.4 Comprehensive Chem Profile 11/15/2020 [facility] Commissioned Sales Associate: [place] [address] [phone] Glucose 101 mg/dL High 74 - 99 [...] mL/min >60 4 Laboratory test finding 11/07/2020 [facility] [address] [place] [address] [phone] NT-Pro BNP 901 pg/mL High <450 Thyroid Stimulating Hormone < 0.005 uIU/ML Low 0.358-3.740 Respiratory Panel 11/07/2020 [facility] nter [address] [place] [address] [phone] Respiratory Panel This respiratory <SEE NOTE> 5 Basic Metabolic Profile 11/07/2020 [facility] [address] [place] [address] [phone] Glucose, Fasting 99 mg/dL Normal 70-100 Blood [...] 8.1 mg/dL Low 8.8-10.2 Liver Profile [facility]07[facility]2020 [facility] [address] [place] [address] [phone] Ast/Sgot 45 IU/L Normal Alt/SGPT 30 IU/L Normal 0-32 Alkaline Phosphatase 220 U/L High 45-117 Bilirubin,Total 1.6 mg/dL High 0.2-1.0 Bilirubin,Direct 0.6 mg/dL High 0.0-0.2 Total Protein 6.0 GM/DL Low 6.4-8.2 Albumin 2.2 GM/DL Low 3.2-5.2 Albumin/Globulin Ratio 0.6 Low 1.2-2.2 Cardiac Marker Panel 11/07/[address] [address] [phone] CPK Creatine Phosphokinase 105 U/L Normal 26-19 2 CK-MB Value Mass 1.2 NG/ML Normal <3.6 MB/CK Relative Index 1.14 Normal < Or =4 7 Troponin I < 0.02 NG/ML Normal < 0.10 8 Venous Blood Gas 11/07/[address] [address] [phone] Venous PH 7.403 units Normal 7.330-7.430 Venous Partial Pressure Co2 45.9 mmHg Normal 38.0-50.0 Venous Partial Pressure O2 141.5 mmHg High 30.0-50.0 Venous Total Co2 29.4 mEq/L High 24.0-28.0 Venous Hco3 28.0 mEq/L High 23.0-27.0 Venous Base Excess 2.9 High -2.0-2.0 Venous Standard Hco3 27.1 mEq/L Normal Venous O2 Saturation 98.8 % High 60.0-80.0 Laboratory test finding 11/07/[address] [address] [phone] iSTAT Troponin 0.01 NG/ML Normal 0.00-0.08 Laboratory test finding 11/07/2020 [facility] [address] [place] [address] [phone] Immature Platelet Fraction 14.9 % High 0.0-9 .59 CBC With Differential 11/07/2020 [facility] [address] [place] [address] [phone] White Blood Count 4.2 10 Normal 4.0-10.0 [...] 36.0-66.0 Lymph % 22.1 % Low 24.0-44.0 [place] % 18.8 % High 2.0-8.0 Eos % 5.5 % High 0.0-3.0 Baso % 0.2 % Normal 0.0-1.0 Immature Granulocyte % 0.2 % Normal 0-3.0 Nucleated Red Blood Cell % 0.0 % Normal 0-0 Neutrophils # 2.2 10 Normal 1.5-8.5 Lymph # 0.9 10 Low 1.5-5.0 [place] # 0.8 10 Normal 0.0-0.8 Eos # 0.2 10 Normal 0.0-0.5 Baso # 0.0 10 Normal 0.0-0.2 Complete Blood Count 09/03/2020 [facility] Commissioned Sales Associate: [place] [address] [phone] WBC 3.7 x10*3/UL Low 4.1 - 10.9 [...] 2.0 - 7.8 Basic Metabolic Panel 09/03/2020 [facility] Commissioned Sales Associate: [place] [address] [phone] Glucose 148 mg/dL High 74 - 99 [...] >60 11 Total Iron Binding Capacit 07/16/2020 [facility] [address] [place] [address] [phone] Iron (Fe) 64 g/dL Normal 50-170 Total Iron Binding Capacity 367 g/dL Normal 250-450 Percent Saturation 17.4 % Normal 13.2-45.0 Prothrombin Time/Inr 07/16/2020 [facility] enter [address] [place] [address] [phone] Prothrombin Time 16.9 seconds High 12.5-14.3 Inr 1.34 Normal 12 Laboratory test finding 07/16/2020 [facility] [address] [place] [address] [phone] Ammonia 64 uMOL/L High <32 Complete Blood Count 07/16/2020 [facility] Commissioned Sales Associate: [place] [address] [phone] WBC 4.0 x10*3/UL Low 4.1 - 10.9 [...] 2.7 x10*3/UL 2.0 - 7.8 A1c 07/16/2020 [facility] Commissioned Sales Associate: [place] [address] [phone] Hba1c 5.5 % <5.7 14 Est Avg Glucose 111 mg/dL High 60 - 110 Comprehensive Chem Profile 07/16/2020 [facility], Commissioned Sales Associate: [place] [address] [phone] Glucose 121 mg/dL High 74 - 99 [...] 60 mL/min >60 16 Lipid Profile 07/16/2020 [facility] Commissioned Sales Associate: Dr Hector Barrow [place], [place] 8[address] [phone] Cholesterol 97 mg/dL Low 131 - 200 Triglycerides 47 mg/dL 30 - 150 HDL Cholesterol 70 mg/dL High 35 - 60 LDL (Calculated) INVALID CALC 50 - 159 Laboratory test finding 07/16/2020 [facility] Commissioned Sales Associate: [place] [address] [phone] Thyroid Stimulating Hormone 0.04 uIU/mL Low 0.3 6 - 3.74 Coronavirus 2019 Nasopharygeal 06/09/[address] [id number] [phone] Coronavirus 2019 Nasopharygeal ASSAY INFORMATIO <SEE N [...] LITTLE GFR LEFT ESRD GFR <15 ON BLOCKER AND POLISHER 5 This respiratory PCR panel d etects [...] Little GFR Left ESRD GFR <15 on BLOCKER AND POLISHER 7 DIAGNOSIS CRITERIA MMB ng/ml Relative Index (RI) NON-AMI < or = 5 N/A ZEPEDA ZONE > 5 < or = 4 AMI > 5 > 4 8 Troponin I Reference Interva l for [employer] LOCI: 99th Percentile= 0.00-0.045 ng/ml Risk Stratification: [...] LITTLE GFR LEFT ESRD GFR <15 ON BLOCKER AND POLISHER 12 THERAPUTIC HUMAN INR VALUES INDICATIONS NORMAL [...] LITTLE GFR LEFT ESRD GFR <15 ON BLOCKER AND POLISHER 17 ASSAY INFORMATION: Real Time RT-PCR NOTE: The COVID-19 assay has been cleared by the U.S. Food and Drug Administration under the Emergency Use Authorization (EUA). [facility] and [facility] are designated as high complexity laboratories by the Clinical Laboratory Improvement Amendments of 1988(CLIA) and are qualified to perform this test. Not Detected Procedures Date Code Description Status 11/15/2020 89232 Trans Care SRV W/I 14D Of DC, Co mm W/I 2 Dys Med Rec Completed 09/03/2020 23228 Aparicio Cre SRV W/I 7 Days Of DC, C omm W/I 2 Dys Med Rec Completed 07/16/2020 06147 Office/Outpatient Established Mo d MDM 30-39 Min Completed 05/09/2018 250646615 Diabetic Retinal Eye Exam Comple symone 04/18/2018 [id number] Diabetic Retinal Eye Exam Comple symone 10/26/2017 [id number] Colonoscopy Completed 04/13/2016 [id number] Diabetic Retinal Eye Exam Comple symone 03/25/2016 [id number] Diabetic Retinal Eye Exam Comple symone 03/19/2016 [id number] Diabetic Retinal Eye Exam Comple symone Medical Devices Description No Information Available Encounters Type Date Location Provider Dx Diagnosis Office Visit 11/15/2020 8:40a [facility] Hector Barrow MD K31.811 Angiodysplasia of stomach and [...] polyneuropathy E83.42 Hypomagnesemia Office Visit 09/03/2020 10:20a [facility] ELMO Temple JR K31.811 Angiodysplasia of stomach an d [...] E03.9 Hypothyroidism, unspecified Office Visit 07/16/2020 1:00p [facility] Barrow MD J44.9 Chronic obstructive pulmonary disease, u [...] 4.9, adult Assessments Date Code Description Provider 11/22/2020 D50.9 Iron deficiency anemia, unspecif ied Hector Barrow MD 11/22/2020 D50.9 Iron deficiency anemia, unspecif ied Lab Schedule 11/15/2020 K31.811 Angiodysplasia of stomach and du [...] of stomach and du odenum with bleeding ELMO Felix JR 09/03/2020 I25.10 Atherosclerotic hear t disease of [place] coronary artery without angina pectoris Kashmir Valles JR, ELMO 09/03/2020 J44.9 Chronic obstructive pulmonary di seasyue, unspecified ELMO Felix JR 09/03/2020 J96.11 Chronic respiratory failure with hypoxia ELMO Felix JR 09/03/2020 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 * 12/16/2020 2:00 pm - [facility] 07/16/2020 - Hector Barrow MD* J44.9 Chronic obstructive pulmonary disease, unspecified * J96.11 Chronic respiratory failure with hypoxia * Z99.81 Dependence on supplemental oxygen * I35.0 Nonrheumatic aortic (valve) stenosis * I25.10 Atherosclerotic heart disease of [place] coronary artery without angina pectoris * K92.2 [...]
--- OUTSIDE RECORDS SUMMARY | 2020-12-11 12:44 | CCD | Continuity of Care Document ---
Author Author Lab Marielena Mccray Organization Unknown Address [address] [address] Phone Unavailable Care Team Providers Care Gut Carrier Name Role Phone Ebony Lakhani AUTM [phone] Austin Rashid MD AUTM [phone] Sarahi Rojas MD AUTM [phone] Hector Barrow JR, MD AUTM Unavailable MelissaKeo vinsonsonido AUTM [phone] Problems Active Problems Provider Date Type 2 [...] Vaccine Lot # U-Flu Given 11/16/2019 Influenza,Unspecified 44202 Given 11/16/2019 Shingrix Zoster Vaccine (HZV), Recombinant, Subunit, Adjuvanted 78762 Given 01/19/2017 Influenza Vaccin e Quadrivalent Preser/Antibiotic Free Im Use [id number] 56217 Given 07/17/2016 Pneumovax 23 [id number] 80453 Given 12/19/2015 Prevnar 13 [id number] Given 12/02/2015 Fluvirin Virus Vaccine [id number] 01 Vital Signs Date Vital Result Comment [...] H/L Range Note Complete Blood Count 11/22/2020 [facility] Jet Handler: [place] [address] [phone] WBC 3.9 x10*3/UL Low 4.1 - 10.9 [...] & Screen -Incl Blood Type,Zhen,AB SC 11/15/[address] [id number] [phone] Blood Type O POSITIVE Normal AB Screen (Indirect Adilia)Vis NEGATIVE Normal Total Iron Binding Capacit 11/15/[address] [address] [phone] Iron (Fe) 103 g/dL Normal 50-170 Total Iron Binding Capacity 303 g/dL Normal 250-450 Percent Saturation 34.0 % Normal 13.2-45.0 Complete Blood Count 11/15/2020 [facility] Jet Handler: [place] [address] [phone] WBC 4.0 x10*3/UL Low 4.1 - 10.9 [...] 2.0 - 7.8 Laboratory test finding 11/15/2020 [facility] Jet Handler: Dr Young [place], [place] [id number] [phone] Magnesium 1.5 mg/dL Low 1.8 - 2.4 Comprehensive Chem Profile 11/15/2020 [facility] Jet Handler: [place] [address] [phone] Glucose 101 mg/dL High 74 - 99 [...] >60 GFR >= 60 mL/min >60 4 Basic Metabolic Profile 11/07/[address] [address] [phone] Glucose, Fasting 99 mg/dL Normal 70-100 Blood Urea Nitrogen 11 mg/dL Normal 7-18 Creatinine For GFR 0.82 mg/dL Normal 0.55-1.30 Glomerular Filtration Rate > 60.0 Normal >32 5 Sodium Level 140 mEq/L Normal 136-145 Potassium Serum 5.0 mEq/L Normal 3.5-5.1 Chloride Level 111 mEq/L High 98-107 Carbon Dioxide Level 27 mmol/L Normal 20-29 Anion Gap 2 mEq/L Low 8-16 Calcium Level 8.1 mg/dL Low 8.8-10.2 Respiratory Panel 11/07/2020 [facility] nter [address] [place] [address] [phone] Respiratory Panel This respiratory <SEE NOTE> 6 Laboratory test finding 11/07/[address] [address] [phone] NT-Pro BNP 901 pg/mL High <450 Thyroid Stimulating Hormone < 0.005 uIU/ML Low 0.358-3.740 Liver Profile 11/07/[address] [address] [phone] Ast/Sgot 45 IU/L Normal Alt/SGPT 30 IU/L Normal 0-32 Alkaline Phosphatase 220 U/L High 45-117 Bilirubin,Total 1.6 mg/dL High 0.2-1.0 Bilirubin,Direct 0.6 mg/dL High 0.0-0.2 Total Protein 6.0 GM/DL Low 6.4-8.2 Albumin 2.2 GM/DL Low 3.2-5.2 Albumin/Globulin Ratio 0.6 Low 1.2-2.2 Cardiac Marker Panel 11/07/[address] [address] [phone] CPK Creatine Phosphokinase 105 U/L Normal 26-19 2 CK-MB Value Mass 1.2 NG/ML Normal <3.6 MB/CK Relative Index 1.14 Normal < Or =4 7 Troponin I < 0.02 NG/ML Normal < 0.10 8 Venous Blood Gas 11/07/[address] [address] [phone] Venous PH 7.403 units Normal 7.330-7.430 Venous Partial Pressure Co2 45.9 mmHg Normal 38.0-50.0 Venous Partial Pressure O2 141.5 mmHg High 30.0-50.0 Venous Total Co2 29.4 mEq/L High 24.0-28.0 Venous Hco3 28.0 mEq/L High 23.0-27.0 Venous Base Excess 2.9 High -2.0-2.0 Venous Standard Hco3 27.1 mEq/L Normal Venous O2 Saturation 98.8 % High 60.0-80.0 Laboratory test finding 11/07/[address] [address] [phone] iSTAT Troponin 0.01 NG/ML Normal 0.00-0.08 Laboratory test finding 11/07/2020 [facility] [address] [place] [address] [phone] Immature Platelet Fraction 14.9 % High 0.0-9 .59 CBC With Differential 11/07/2020 [facility] [address] [place] [address] [phone] White Blood Count 4.2 10 Normal 4.0-10.0 [...] 36.0-66.0 Lymph % 22.1 % Low 24.0-44.0 [place] % 18.8 % High 2.0-8.0 Eos % 5.5 % High 0.0-3.0 Baso % 0.2 % Normal 0.0-1.0 Immature Granulocyte % 0.2 % Normal 0-3.0 Nucleated Red Blood Cell % 0.0 % Normal 0-0 Neutrophils # 2.2 10 Normal 1.5-8.5 Lymph # 0.9 10 Low 1.5-5.0 [place] # 0.8 10 Normal 0.0-0.8 Eos # 0.2 10 Normal 0.0-0.5 Baso # 0.0 10 Normal 0.0-0.2 Complete Blood Count 09/03/2020 [facility] Jet Handler: [place] [address] [phone] WBC 3.7 x10*3/UL Low 4.1 - 10.9 [...] 2.0 - 7.8 Basic Metabolic Panel 09/03/2020 [facility] Jet Handler: [place] [address] [phone] Glucose 148 mg/dL High 74 - 99 [...] >60 11 Total Iron Binding Capacit 07/16/2020 [facility] [address] [place] [address] [phone] Iron (Fe) 64 g/dL Normal 50-170 Total Iron Binding Capacity 367 g/dL Normal 250-450 Percent Saturation 17.4 % Normal 13.2-45.0 Prothrombin Time/Inr 07/16/2020 [facility] enter [address] [place] [address] [phone] Prothrombin Time 16.9 seconds High 12.5-14.3 Inr 1.34 Normal 12 Laboratory test finding 07/16/2020 [facility] [address] [place] [address] [phone] Ammonia 64 uMOL/L High <32 Complete Blood Count 07/16/2020 [facility] Jet Handler: [place] [address] [phone] WBC 4.0 x10*3/UL Low 4.1 - 10.9 [...] 2.7 x10*3/UL 2.0 - 7.8 A1c 07/16/2020 [facility] , Jet Handler: [place] [address] [phone] Hba1c 5.5 % <5.7 14 Est Avg Glucose 111 mg/dL High 60 - 110 Comprehensive Chem Profile 07/16/2020 [facility], Jet Handler: [place] [address] [phone] Glucose 121 mg/dL High 74 - 99 [...] 60 mL/min >60 16 Lipid Profile 07/16/2020 [facility] Jet Handler: Dr Hector Barrow [place], [place] [address] [phone] Cholesterol 97 mg/dL Low 131 - 200 Triglycerides 47 mg/dL 30 - 150 HDL Cholesterol 70 mg/dL High 35 - 60 LDL (Calculated) INVALID CALC 50 - 159 Laboratory test finding 07/16/2020 [facility] Jet Handler: [place] [address] [phone] Thyroid Stimulating Hormone 0.04 uIU/mL Low 0.3 6 - 3.74 Coronavirus 2019 Nasopharygeal 06/09/[address] 0381532 [phone] Coronavirus 2019 Nasopharygeal ASSAY INFORMATIO <SEE N [...] LITTLE GFR LEFT ESRD GFR <15 ON GUN WELDER 5 Units are mL/min/1.73 m2 Chronic Kidney Disease Staging per NKF: Stage I & II GFR >=60 Normal to Mildly Decreased Stage III GFR 30-59 Moderately Decreased Stage IV GFR 15-29 Severely Decreased Stage V GFR <15 Very Little GFR Left ESRD GFR <15 on GUN WELDER 6 This respiratory PCR panel d etects Influenza A H1, H3 and 2009 H1 viruses, Influenza B virus, Resp iratory Syncytial Virus, Human metapneumovirus, Parainfluenza virus 1, 2, 3 and 4, Adenovirus, Rhinovirus/Enterovirus, Coronavirus HKU1, NL63, OC43, 229E and SARS-CoV-2 (COVID 19), Bordetella pertussis, Bordetella parapertussis, Mycoplasma pneumoniae and Chlamydia pneumoniae. NEGATIVE by MULTIPLEXED NUCLEIC ACID PCR SARS-CoV-2 (COVID 19) NEGATIVE - SARS-CoV-2 (COVID19) 7 DIAGNOSIS CRITERIA MMB ng/ml Relative Index (RI) NON-AMI < or = 5 N/A ZEPEDA ZONE > 5 < or = 4 AMI > 5 > 4 8 Troponin I Reference Interva l for [employer] LOCI: 99th Percentile= 0.00-0.045 ng/ml Risk Stratification: [...] LITTLE GFR LEFT ESRD GFR <15 ON GUN WELDER 12 THERAPUTIC HUMAN INR VALUES INDICATIONS NORMAL [...] LITTLE GFR LEFT ESRD GFR <15 ON GUN WELDER 17 ASSAY INFORMATION: Real Time RT-PCR NOTE: The COVID-19 assay has been cleared by the U.S. Food and Drug Administration under the Emergency Use Authorization (EUA). [facility] and [facility] are designated as high complexity laboratories by the Clinical Laboratory Improvement Amendments of 1988(CLIA) and are qualified to perform this test. Not Detected Procedures Date Code Description Status 11/15/2020 53911 Trans Care SRV W/I 14D Of DC, Co mm W/I 2 Dys Med Rec Completed 09/03/2020 54763 Aparicio Cre SRV W/I 7 Days Of DC, C omm W/I 2 Dys Med Rec Completed 07/16/2020 69406 Office/Outpatient Established Mo d MDM 30-39 Min Completed 05/09/2018 [id number] Diabetic Retinal Eye Exam Comple symone 04/18/2018 640326038 Diabetic Retinal Eye Exam Comple symone 10/26/2017 [id number] Colonoscopy Completed 04/13/2016 [id number] Diabetic Retinal Eye Exam Comple symone 03/25/2016 [id number] Diabetic Retinal Eye Exam Comple symone 03/19/2016 [id number] Diabetic Retinal Eye Exam Comple symone Medical Devices Description No Information Available Encounters Type Date Location Provider Dx Diagnosis Office Visit 11/15/2020 8:40a [facility] Hector Barrow MD K31.811 Angiodysplasia [...] polyneuropathy E83.42 Hypomagnesemia Office Visit 09/03/2020 10:20a [facility] ELMO Temple JR K31.811 Angiodysplasia [...] E03.9 Hypothyroidism, unspecified Office Visit 07/16/2020 1:00p [facility] B[facility] MD J44.9 Chronic obstructive [...] 09/03/2020 I25.10 Atherosclerotic hear t disease of [place] coronary artery without angina pectoris Kashmir Valles [...] 07/16/2020 I25.10 Atherosclerotic hear t disease of [place] coronary artery without angina pectoris Hector Barrow [...] Barrow MD Plan of Treatment Future Appointment(s):* 12/16/2020 2:00 pm - [facility] 07/16/2020 - Hector Barrow MD* J44.9 Chronic obstructive pulmonary disease, unspecified * J96.11 Chronic respiratory failure with hypoxia * Z99.81 Dependence on supplemental oxygen * I35.0 Nonrheumatic aortic (valve) stenosis * I25.10 Atherosclerotic heart disease of [place] coronary artery without angina pectoris * K92.2 [...]
--- OUTSIDE RECORDS SUMMARY | 2020-12-11 12:44 | CCD | Continuity of Care Document ---
Author Author Lab Marielena Mccray Organization Unknown Address [address] [address] Phone Unavailable Care Team Providers Care Drum Sealer Name Role Phone Ebony Lakhani AUTM [phone] Austin Rashid MD AUTM [phone] Sarahi Rojas MD AUTM [phone] Hector Barrow JR, MD AUTM Unavailable MelissaKeo vinsonsonido AUTM [phone] Problems Active Problems Provider Date Type 2 [...] Vaccine Lot # [id number] Given 11/16/2019 Influenza,Unspecified 53913 Given 11/16/2019 Shingrix Zoster Vaccine (HZV), Recombinant, Subunit, Adjuvanted 37706 Given 01/19/2017 Influenza Vaccin e Quadrivalent Preser/Antibiotic Free Im Use [id number] 34430 Given 07/17/2016 Pneumovax 23 [id number] 07902 Given 12/19/2015 Prevnar 13 [id number] Given 12/02/2015 Fluvirin Virus Vaccine [id number] 01 Vital Signs Date Vital Result Comment [...] H/L Range Note Complete Blood Count 11/22/2020 [facility] Surg Rn: [place] [address] [phone] WBC 3.9 x10*3/UL Low 4.1 - 10.9 [...] & Screen -Incl Blood Type,Zhen,AB SC 11/15/[address] [id number] [phone] Blood Type O POSITIVE Normal AB Screen (Indirect Adilia)Vis NEGATIVE Normal Total Iron Binding Capacit 11/15/[address] [address] [phone] Iron (Fe) 103 g/dL Normal 50-170 Total Iron Binding Capacity 303 g/dL Normal 250-450 Percent Saturation 34.0 % Normal 13.2-45.0 Complete Blood Count 11/15/2020 [facility] Surg Rn: [place] [address] [phone] WBC 4.0 x10*3/UL Low 4.1 - 10.9 [...] 2.0 - 7.8 Laboratory test finding 11/15/2020 [facility] Surg Rn: Dr Young [place], [place] [id number] [phone] Magnesium 1.5 mg/dL Low 1.8 - 2.4 Comprehensive Chem Profile 11/15/2020 [facility] S[facility] Rn: [place] [address] [phone] Glucose 101 mg/dL High 74 - 99 [...] mL/min >60 4 Basic Metabolic Profile 11/07/[address] [address] [phone] Glucose, Fasting 99 mg/dL Normal 70-100 Blood [...] 8.1 mg/dL Low 8.8-10.2 Respiratory Panel 11/07/2020 [facility] nter [address] [place] [address] [phone] Respiratory Panel This respiratory <SEE NOTE> 6 Laboratory test finding 11/07/[address] [address] [phone] NT-Pro BNP 901 pg/mL High <450 Thyroid Stimulating Hormone < 0.005 uIU/ML Low 0.358-3.740 Liver Profile 11/07/[address] [address] [phone] Ast/Sgot 45 IU/L Normal Alt/SGPT 30 IU/L Normal 0-32 Alkaline Phosphatase 220 U/L High 45-117 Bilirubin,Total 1.6 mg/dL High 0.2-1.0 Bilirubin,Direct 0.6 mg/dL High 0.0-0.2 Total Protein 6.0 GM/DL Low 6.4-8.2 Albumin 2.2 GM/DL Low 3.2-5.2 Albumin/Globulin Ratio 0.6 Low 1.2-2.2 Cardiac Marker Panel 11/07/[address] [address] [phone] CPK Creatine Phosphokinase 105 U/L Normal 26-19 2 CK-MB Value Mass 1.2 NG/ML Normal <3.6 MB/CK Relative Index 1.14 Normal < Or =4 7 Troponin I < 0.02 NG/ML Normal < 0.10 8 Venous Blood Gas 11/07/[address] [address] [phone] Venous PH 7.403 units Normal 7.330-7.430 Venous Partial Pressure Co2 45.9 mmHg Normal 38.0-50.0 Venous Partial Pressure O2 141.5 mmHg High 30.0-50.0 Venous Total Co2 29.4 mEq/L High 24.0-28.0 Venous Hco3 28.0 mEq/L High 23.0-27.0 Venous Base Excess 2.9 High -2.0-2.0 Venous Standard Hco3 27.1 mEq/L Normal Venous O2 Saturation 98.8 % High 60.0-80.0 Laboratory test finding 11/07/[address] [address] [phone] iSTAT Troponin 0.01 NG/ML Normal 0.00-0.08 Laboratory test finding 11/07/2020 [facility] [address] [place] [address] [phone] Immature Platelet Fraction 14.9 % High 0.0-9 .59 CBC With Differential 11/07/2020 [facility] [address] [place] [address] [phone] White Blood Count 4.2 10 Normal 4.0-10.0 [...] 36.0-66.0 Lymph % 22.1 % Low 24.0-44.0 [place] % 18.8 % High 2.0-8.0 Eos % 5.5 % High 0.0-3.0 Baso % 0.2 % Normal 0.0-1.0 Immature Granulocyte % 0.2 % Normal 0-3.0 Nucleated Red Blood Cell % 0.0 % Normal 0-0 Neutrophils # 2.2 10 Normal 1.5-8.5 Lymph # 0.9 10 Low 1.5-5.0 [place] # 0.8 10 Normal 0.0-0.8 Eos # 0.2 10 Normal 0.0-0.5 Baso # 0.0 10 Normal 0.0-0.2 Complete Blood Count 09/03/2020 [facility] Surg Rn: [place] [address] [phone] WBC 3.7 x10*3/UL Low 4.1 - 10.9 [...] 2.0 - 7.8 Basic Metabolic Panel 09/03/2020 [facility] Surg Rn: [place] [address] [phone] Glucose 148 mg/dL High 74 - 99 [...] 11 Total Iron Binding Capacit 07/16/2020 [facility] [address] [place] [address] [phone] Iron (Fe) 64 g/dL Normal 50-170 Total Iron Binding Capacity 367 g/dL Normal 250-450 Percent Saturation 17.4 % Normal 13.2-45.0 Prothrombin Time/Inr 07/16/2020 [facility] enter [address] [place] [address] [phone] Prothrombin Time 16.9 seconds High 12.5-14.3 Inr 1.34 Normal 12 Laboratory test finding 07/16/2020 [facility] [address] [place] [address] [phone] Ammonia 64 uMOL/L High <32 Complete Blood Count 07/16/2020 [facility] Surg Rn: [place] [address] [phone] WBC 4.0 x10*3/UL Low 4.1 - 10.9 [...] 2.7 x10*3/UL 2.0 - 7.8 A1c 07/16/2020 [facility] Surg Rn: [place] [address] [phone] Hba1c 5.5 % <5.7 14 Est Avg Glucose 111 mg/dL High 60 - 110 Comprehensive Chem Profile 07/16/2020 [facility] Surg Rn: [place] [address] [phone] Glucose 121 mg/dL High 74 - 99 [...] 60 mL/min >60 16 Lipid Profile 07/16/2020 [facility] Surg Rn: Dr Hector Barrow [place], [place] 9333208 [phone] Cholesterol 97 mg/dL Low 131 - 200 Triglycerides 47 mg/dL 30 - 150 HDL Cholesterol 70 mg/dL High 35 - 60 LDL (Calculated) INVALID CALC 50 - 159 Laboratory test finding 07/16/2020 [facility] Surg Rn: [place] [address] [phone] Thyroid Stimulating Hormone 0.04 uIU/mL Low 0.3 6 - 3.74 Coronavirus 2019 Nasopharygeal 06/09/[address] 0155265 [phone] Coronavirus 2019 Nasopharygeal ASSAY INFORMATIO <SEE N [...] LITTLE GFR LEFT ESRD GFR <15 ON TOWBOAT OPERATOR 5 Units are mL/min/1.73 m2 Chronic Kidney Disease Staging per NKF: Stage I & II GFR >=60 Normal to Mildly Decreased Stage III GFR 30-59 Moderately Decreased Stage IV GFR 15-29 Severely Decreased Stage V GFR <15 Very Little GFR Left ESRD GFR <15 on TOWBOAT OPERATOR 6 This respiratory PCR panel d etects [...] Troponin I Reference Interva l for Siemens [place] LOCI: 99th Percentile= 0.00-0.045 ng/ml Risk Stratification: [...] LITTLE GFR LEFT ESRD GFR <15 ON TOWBOAT OPERATOR 12 THERAPUTIC HUMAN INR VALUES INDICATIONS NORMAL [...] LITTLE GFR LEFT ESRD GFR <15 ON TOWBOAT OPERATOR 17 ASSAY INFORMATION: Real Time RT-PCR NOTE: The COVID-19 assay has been cleared by the U.S. Food and Drug Administration under the Emergency Use Authorization (EUA). [employer] [facility] and [facility] are designated as high complexity laboratories by the Clinical Laboratory Improvement Amendments of 1988(CLIA) and are qualified to perform this test. Not Detected Procedures Date Code Description Status 11/15/2020 06722 Trans Care SRV W/I 14D Of DC, Co mm W/I 2 Dys Med Rec Completed 09/03/2020 81253 Aparicio Cre SRV W/I 7 Days Of DC, C omm W/I 2 Dys Med Rec Completed 07/16/2020 93451 Office/Outpatient Established Mo d MDM 30-39 Min Completed 05/09/2018 [id number] Diabetic Retinal Eye Exam Comple symone 04/18/2018 [id number] Diabetic Retinal Eye Exam Comple symone 10/26/2017 [id number] Colonoscopy Completed 04/13/2016 [id number] Diabetic Retinal Eye Exam Comple symone 03/25/2016 [id number] Diabetic Retinal Eye Exam Comple symone 03/19/2016 [id number] Diabetic Retinal Eye Exam Comple symone Medical Devices Description No Information Available Encounters Type Date Location Provider Dx Diagnosis Office Visit 11/15/2020 8:40a [facility] Hector Barrow MD K31.811 Angiodysplasia [...] polyneuropathy E83.42 Hypomagnesemia Office Visit 09/03/2020 10:20a [facility] ELMO Temple JR K31.811 Angiodysplasia [...] E03.9 Hypothyroidism, unspecified Office Visit 07/16/2020 1:00p [facility] B[facility] MD J44.9 Chronic obstructive [...] 09/03/2020 I25.10 Atherosclerotic hear t disease of [place] coronary artery without angina pectoris Kashmir Valles [...] 07/16/2020 I25.10 Atherosclerotic hear t disease of [place] coronary artery without angina pectoris Hector Barrow [...] 2:00 pm - [facility] at [facility] 07/16/2020 - Hector Barrow MD* J44.9 Chronic obstructive pulmonary disease, unspecified * J96.11 Chronic respiratory failure with hypoxia * Z99.81 Dependence on supplemental oxygen * I35.0 Nonrheumatic aortic (valve) stenosis * I25.10 Atherosclerotic heart disease of [place] coronary artery without angina pectoris * K92.2 [...]
--- OUTSIDE RECORDS SUMMARY | 2020-12-11 12:44 | CCD | Continuity of Care Document ---
Author Author Lab Marielena Mccray Organization Unknown Address [address] [address] Phone Unavailable Care Team Providers Care Account Liaison Name Role Phone Ebony Lakhani AUTM [phone] Austin Rashid MD AUTM [phone] Sarahi Rojas MD AUTM [phone] Hector Barrow JR, MD AUTM Unavailable MelissaKeo vinsonsonido AUTM [phone] Problems Active Problems Provider Date Type 2 [...] Medication SIG Qnty Indications Ordering Provider Date Administration Of Flu Vaccine Inj ection Hector Barrow MD 11/29/2020 Covid-19 vaccine, Unspecified Inj ection Unknown 05/30/2020 Covid-19 vaccine, Unspecified Inj ection Unknown 05/02/2020 Administration Of Flu Vaccine Inj ection Hector Barrow MD 01/19/2017 Administration Of Flu Vaccine Inj ection Hector Barrow MD 12/02/2015 Immunizations CPT Code Status Date Vaccine Lot # [id number] Given 11/29/2020 Influenza Vaccin e Quadrivalent Preser/Antibiotic Free Im Use [id number] U-Flu Given 11/16/2019 Influenza,Unspecified 24459 Given 11/16/2019 Shingrix Zoster Vaccine (HZV), Recombinant, Subunit, Adjuvanted 40109 Given 01/19/2017 Influenza Vaccin e Quadrivalent Preser/Antibiotic Free Im Use [id number] 97507 Given 07/17/2016 Pneumovax 23 [id number] 15513 Given 12/19/2015 Prevnar 13 [id number] Given 12/02/2015 Fluvirin Virus Vaccine 14400 01 Vital Signs Date Vital Result Comment [...] Result H/L Range Note Complete Blood Count 11/29/2020 [facility] Vtc Technician: [place] [address] [phone] WBC 3.7 x10*3/UL Low 4.1 - 10.9 RBC 3.29 x10*6/UL Low 4.20 - 6.30 Hemoglobin 10.2 g/dL Low 12.0 - 18.0 Hematocrit 30.2 % Low 37.0 - 51.0 MCV 91.8 fL 80.0 - 97.0 MCH 30.9 pg 26.0 - 32.0 MCHC 33.7 g/dL 31.0 - 38.0 RDW 15.9 % High 11.6 - 13.7 PLT 55 x10*3/UL Low 140 - 440 1 MPV 10.6 FL 7.8 - 11.0 Lymph % 29.2 % 10.0 - 58.5 Mid % 8.1 % 1.7 - 9.3 Neut % 62.7 % 37.0 - 92.0 Lymph # 1.1 x10*3/UL 0.6 - 4.1 Mid # 0.3 x10*3/UL 0.1 - 0.6 Neut # 2.3 x10*3/UL 2.0 - 7.8 Complete Blood Count 11/22/2020 [facility] Vtc Technician: Dr Hector Barrow [place], [place] [address] [phone] WBC 3.9 x10*3/UL Low 4.1 - 10.9 RBC 3.50 x10*6/UL Low 4.20 - 6.30 Hemoglobin 10.6 g/dL Low 12.0 - 18.0 Hematocrit 32.2 % Low 37.0 - 51.0 MCV 92.1 fL 80.0 - 97.0 MCH 30.4 pg 26.0 - 32.0 MCHC 33.0 g/dL 31.0 - 38.0 RDW 15.3 % High 11.6 - 13.7 PLT 69 x10*3/UL Low 140 - 440 2 MPV 10.7 FL 7.8 - 11.0 Lymph % 28.7 % 10.0 - 58.5 Mid % 7.0 % 1.7 - 9.3 Neut % 64.3 % 37.0 - 92.0 Lymph # 1.1 x10*3/UL 0.6 - 4.1 Mid # 0.3 x10*3/UL 0.1 - 0.6 Neut # 2.5 x10*3/UL 2.0 - 7.8 Type & Screen -Incl Blood Type,Zhen,AB SC 11/15/[address] [address] [phone] Blood Type O POSITIVE Normal AB Screen (Indirect [place])Vis NEGATIVE Normal Total Iron Binding Capacit 11/15/[address] [address] [phone] Iron (Fe) 103 g/dL Normal 50-170 Total Iron Binding Capacity 303 g/dL Normal 250-450 Percent Saturation 34.0 % Normal 13.2-45.0 Complete Blood Count 11/15/2020 [facility] Vtc Technician: [place] [address] [phone] WBC 4.0 x10*3/UL Low 4.1 - 10.9 [...] 2.0 - 7.8 Laboratory test finding 11/15/2020 [facility]ora Vtc Technician: [place] [address] [phone] Magnesium 1.5 mg/dL Low 1.8 - 2.4 Comprehensive Chem Profile 11/15/2020 [facility] Vtc Technician: [place] [address] [phone] Glucose 101 mg/dL High 74 - 99 3 BUN 9 mg/dL 7 - 18 Creatinine 0.9 mg/dL 0.6 - 1.3 Sodium 143 mEq/L 136 - 145 Potassium 4.4 mEq/L 3.5 - 5.1 Chloride 110 mEq/L High 98 - 107 Carbon Dioxide 29 mEq/L 21 - 32 Calcium 8.5 mg/dL 8.5 - 10.1 Alk. Phosphatase 271 mg/dL High 46 - 116 4 Total Bilirubin 1.4 mg/dL High 0.2 - 1.0 Ast (Sgot) 43 U/L High 15 - 37 Alt (SGPT) 28 U/L 12 - 78 Albumin 2.3 g/dL Low 3.4 - 5.0 Total Protein 6.2 g/dL Low 6.4 - 8.2 A/G Ratio 0.59 CALC Low 1.00 - 1.90 GFR 60 mL/min Low >60 GFR >= 60 mL/min >60 5 Basic Metabolic Profile 11/07/[address] [id number] [phone] Glucose, Fasting 99 mg/dL Normal 70-100 Blood [...] 8.1 mg/dL Low 8.8-10.2 Respiratory Panel 11/07/2020 [facility] nter [address] [place] [address] [phone] Respiratory Panel This respiratory <SEE NOTE> 7 Laboratory test finding 11/07/[address] 1718863 [phone] NT-Pro BNP 901 pg/mL High <450 Thyroid Stimulating Hormone < 0.005 uIU/ML Low 0.358-3.740 Liver Profile 11/07/2020 [facility] nter [address] [place], [place] [address] [phone] Ast/Sgot 45 IU/L Normal Alt/SGPT 30 IU/L Normal 0-32 Alkaline Phosphatase 220 U/L High 45-117 Bilirubin,Total 1.6 mg/dL High 0.2-1.0 Bilirubin,Direct 0.6 mg/dL High 0.0-0.2 Total Protein 6.0 GM/DL Low 6.4-8.2 Albumin 2.2 GM/DL Low 3.2-5.2 Albumin/Globulin Ratio 0.6 Low 1.2-2.2 Cardiac Marker Panel 11/07/2020 [facility] enter [address] [place] [address] [phone] CPK Creatine Phosphokinase 105 U/L Normal 26-19 2 CK-MB Value Mass 1.2 NG/ML Normal <3.6 MB/CK Relative Index 1.14 Normal < Or =4 8 Troponin I < 0.02 NG/ML Normal < 0.10 9 Venous Blood Gas 11/07/2020 [facility] nter [address] [place] [address] [phone] Venous PH 7.403 units Normal 7.330-7.430 Venous Partial Pressure Co2 45.9 mmHg Normal 38.0-50.0 Venous Partial Pressure O2 141.5 mmHg High 30.0-50.0 Venous Total Co2 29.4 mEq/L High 24.0-28.0 Venous Hco3 28.0 mEq/L High 23.0-27.0 Venous Base Excess 2.9 High -2.0-2.0 Venous Standard Hco3 27.1 mEq/L Normal Venous O2 Saturation 98.8 % High 60.0-80.0 Laboratory test finding 11/07/2020 [facility] [address] [place] [address] [phone] iSTAT Troponin 0.01 NG/ML Normal 0.00-0.08 Laboratory test finding 11/07/[address] [address] [phone] Immature Platelet Fraction 14.9 % High 0.0-9 .59 CBC With Differential 11/07/[address] [address] [phone] White Blood Count 4.2 10 Normal 4.0-10.0 [...] 36.0-66.0 Lymph % 22.1 % Low 24.0-44.0 [place] % 18.8 % High 2.0-8.0 Eos % 5.5 % High 0.0-3.0 Baso % 0.2 % Normal 0.0-1.0 Immature Granulocyte % 0.2 % Normal 0-3.0 Nucleated Red Blood Cell % 0.0 % Normal 0-0 Neutrophils # 2.2 10 Normal 1.5-8.5 Lymph # 0.9 10 Low 1.5-5.0 Anderson # 0.8 10 Normal 0.0-0.8 Eos # 0.2 10 Normal 0.0-0.5 Baso # 0.0 10 Normal 0.0-0.2 Complete Blood Count 09/03/2020 [facility] Vtc Technician: Dr Hector Barrow [place], [place] [address] [phone] WBC 3.7 x10*3/UL Low 4.1 - 10.9 10 RBC 3.53 x10*6/UL Low 4.20 - 6.30 [...] 2.0 - 7.8 Basic Metabolic Panel 09/03/2020 [facility] Vtc Technician: [place] [address] [phone] Glucose 148 mg/dL High 74 - 99 11 BUN 6 mg/dL Low 7 - 18 Creatinine 0.9 mg/dL 0.6 - 1.3 Sodium 143 mEq/L 136 - 145 Potassium 4.1 mEq/L 3.5 - 5.1 Chloride 107 mEq/L 98 - 107 Carbon Dioxide 32 mEq/L 21 - 32 Calcium 8.3 mg/dL Low 8.5 - 10.1 GFR 60 mL/min Low >60 GFR >= 60 mL/min >60 12 Total Iron Binding Capacit 07/16/2020 [facility] [address] [place] [address] [phone] Iron (Fe) 64 g/dL Normal 50-170 Total Iron Binding Capacity 367 g/dL Normal 250-450 Percent Saturation 17.4 % Normal 13.2-45.0 Prothrombin Time/Inr 07/16/2020 [facility] [address] [place] [address] [phone] Prothrombin Time 16.9 seconds High 12.5-14.3 Inr 1.34 Normal 13 Laboratory test finding 07/16/[address] [address] [phone] Ammonia 64 uMOL/L High <32 Complete Blood Count 07/16/2020 [facility] Vtc Technician: [place] [address] [phone] WBC 4.0 x10*3/UL Low 4.1 - 10.9 RBC 3.19 x10*6/UL Low 4.20 - 6.30 Hemoglobin 9.1 g/dL Low 12.0 - 18.0 Hematocrit 27.5 % Low 37.0 - 51.0 MCV 86.1 fL 80.0 - 97.0 MCH 28.4 pg 26.0 - 32.0 MCHC 33.0 g/dL 31.0 - 38.0 RDW 15.0 % High 11.6 - 13.7 PLT 53 x10*3/UL Low 140 - 440 14 MPV 10.5 FL 7.8 - 11.0 Lymph % 25.3 % 10.0 - 58.5 Mid % 7.4 % 1.7 - 9.3 Neut % 67.3 % 37.0 - 92.0 Lymph # 1.0 x10*3/UL 0.6 - 4.1 Mid # 0.3 x10*3/UL 0.1 - 0.6 Neut # 2.7 x10*3/UL 2.0 - 7.8 A1c 07/16/2020 [facility] , Vtc Technician: [place] [address] [phone] Hba1c 5.5 % <5.7 15 Est Avg Glucose 111 mg/dL High 60 - 110 Comprehensive Chem Profile 07/16/2020 [facility] Vtc Technician: [place] [address] [phone] Glucose 121 mg/dL High 74 - 99 16 BUN 8 mg/dL 7 - 18 Creatinine [...] Low >60 GFR >= 60 mL/min >60 17 Lipid Profile 07/16/2020 [facility] , Vtc Technician: [place] [address] [phone] Cholesterol 97 mg/dL Low 131 - 200 Triglycerides 47 mg/dL 30 - 150 HDL Cholesterol 70 mg/dL High 35 - 60 LDL (Calculated) INVALID CALC 50 - 159 Laboratory test finding 07/16/2020 [facility]amora Vtc Technician: [place] [address] [phone] Thyroid Stimulating Hormone 0.04 uIU/mL Low 0.3 6 - 3.74 Coronavirus 2019 Nasopharygeal 06/09/2020 [facility] [address] [place] [address] [phone] Coronavirus 2019 Nasopharygeal ASSAY INFORMATIO <SEE N OTE> 18 1 NOTE: RESULT VERIFIED. 2 NOTE: RESULT VERIFIED. 3 100-125 mg/dL PRE-DIABET ES/FASTING >126 mg/dL DIABETES/FASTING 4 NOTE: ALK PHOS,T.BILI,AST,ALBU,T.PROTEIN...VERIFIED 5 CHRONIC KIDNEY DISEASE STAGI NG PER NKF STAGE I & II GFR >= 60 NORMAL TO MILDLY DECREASED STAGE III GFR 30-59 MODERATELY DECREASED STAGE IV GFR 15-29 SEVERELY DECREASED STAGE V GFR <15 VERY LITTLE GFR LEFT ESRD GFR <15 ON TECHNICAL ASSOCIATE 6 Units are mL/min/1.73 m2 Chronic Kidney Disease Staging per NKF: Stage I & II GFR >=60 Normal to Mildly Decreased Stage III GFR 30-59 Moderately Decreased Stage IV GFR 15-29 Severely Decreased Stage V GFR <15 Very Little GFR Left ESRD GFR <15 on TECHNICAL ASSOCIATE 7 This respiratory PCR panel d etects Influenza A H1, H3 and 2009 H1 viruses, Influenza B virus, Resp iratory Syncytial Virus, Human metapneumovirus, Parainfluenza virus 1, 2, 3 and 4, Adenovirus, Rhinovirus/Enterovirus, Coronavirus HKU1, NL63, OC43, 229E and SARS-CoV-2 (COVID 19), Bordetella pertussis, Bordetella parapertussis, Mycoplasma pneumoniae and Chlamydia pneumoniae. NEGATIVE by MULTIPLEXED NUCLEIC ACID PCR SARS-CoV-2 (COVID 19) NEGATIVE - SARS-CoV-2 (COVID19) 8 DIAGNOSIS CRITERIA MMB ng/ml Relative Index (RI) NON-AMI < or = 5 N/A ZEPEDA ZONE > 5 < or = 4 AMI > 5 > 4 9 Troponin I Reference Interva l for Siemens [place] LOCI: 99th Percentile= 0.00-0.045 ng/ml Risk Stratification: <= 0.10 ng/ml Decreased Risk for Adverse Clinical Events. 0.10-1.50 ng/ml Increased Risk for Adv erse Clinical Events. Evaluation of additional criterion and/or repeat testing in 2-6 hours is suggested to rule out myocardial damage. >= 1.50 ng/ml Indicative of Myocardial Injury. 10 NOTE: CBC AND PLATELET VEREIFIED 11 100-125 mg/dL PRE-DIABET ES/FASTING >126 mg/dL DIABETES/FASTING 12 CHRONIC KIDNEY DISEASE STAGI NG PER NKF STAGE I & II GFR >= 60 NORMAL TO MILDLY DECREASED STAGE III GFR 30-59 MODERATELY DECREASED STAGE IV GFR 15-29 SEVERELY DECREASED STAGE V GFR <15 VERY LITTLE GFR LEFT ESRD GFR <15 ON TECHNICAL ASSOCIATE 13 THERAPUTIC HUMAN INR VALUES INDICATIONS NORMAL RANGES PROPHYLAXIS/TREATMENT OF: VENOUS THROMBOSIS 2.0-3.0 PULMONARY EMBOLISM 2.0-3.0 PREVENTION OF SYSTEMIC EMBOLISM FROM: TISSUE HEART VALVES 2.0-3.0 ACUTE MYOCARDIAL INFARCTION 2.0-3.0 VALVULAR HEART DISEASE 2.0-3.0 ATRIAL FIBRILLATION 2.0-3.0 MECHANICAL VALVES(HIGH RISK) 2.5-3.5 RECURRENT MYOCARDIAL INFARCTION 2.5-3.5 14 NOTE: RESULT VERIFIED. 15 Lab Result Notes: Pre-Diabetes 5.7 - 6.4 % Diabetes = or > 6.5% 16 100-125 mg/dL PRE-DIABET ES/FASTING >126 mg/dL DIABETES/FASTING 17 CHRONIC KIDNEY DISEASE STAGI NG PER NKF STAGE I & II GFR >= 60 NORMAL TO MILDLY DECREASED STAGE III GFR 30-59 MODERATELY DECREASED STAGE IV GFR 15-29 SEVERELY DECREASED STAGE V GFR <15 VERY LITTLE GFR LEFT ESRD GFR <15 ON TECHNICAL ASSOCIATE 18 ASSAY INFORMATION: Real Time RT-PCR NOTE: The COVID-19 assay has been cleared by the U.S. Food and Drug Administration under the Emergency Use Authorization (EUA). [employer] [facility] [employer] are designated as high complexity laboratories by the Clinical Laboratory Improvement Amendments of 1988(CLIA) and are qualified to perform this test. Not Detected Procedures Date Code Description Status 11/15/2020 84607 Trans Care SRV W/I 14D Of DC, Co mm W/I 2 Dys Med Rec Completed 09/03/2020 48137 Aparicio Cre SRV W/I 7 Days Of DC, C omm W/I 2 Dys Med Rec Completed 07/16/2020 04221 Office/Outpatient Established Mo d MDM 30-39 Min Completed 05/09/2018 [id number] Diabetic Retinal Eye Exam Comple symone 04/18/2018 [id number] Diabetic Retinal Eye Exam Comple symone 10/26/2017 [id number] Colonoscopy Completed 04/13/2016 [id number] Diabetic Retinal Eye Exam Comple symone 03/25/2016 [id number] Diabetic Retinal Eye Exam Comple symone 03/19/2016 [id number] Diabetic Retinal Eye Exam [facility]ple [facility] Medical Devices Description No Information Available Encounters Type Date Location Provider Dx Diagnosis Office Visit 11/15/2020 8:40a [facility] MD K31.811 Angiodysplasia of stomach and duodenum [...] polyneuropathy E83.42 Hypomagnesemia Office Visit 09/03/2020 10:20a [facility], [place] K31.811 Angiodysplasia of stomach an d duodenum [...] E03.9 Hypothyroidism, unspecified Office Visit 07/16/2020 1:00p [facility] MD J44.9 Chronic obstructive pulmonary disease, u [...] 4.9, adult Assessments Date Code Description Provider 11/29/2020 D50.9 Iron deficiency anemia, unspecif ied Hector Barrow MD 11/29/2020 D50.9 Iron deficiency anemia, unspecif ied Lab Schedule 11/29/2020 Z23 Encounter for immunization Ana Barrow MD 11/29/2020 Z23 Encounter for immunization Lab S chedule 11/22/2020 D50.9 Iron deficiency anemia, unspecif ied [...] 09/03/2020 I25.10 Atherosclerotic hear t disease of [place] coronary artery without angina pectoris ELMO Felix JR 09/03/2020 J44.9 Chronic obstructive pulmonary di sease, unspecified Kashmir Valles JR, ELMO 09/03/2020 J96.11 Chronic respiratory failure with hypoxia ELMO Felix JR 09/03/2020 Z99.81 Dependence on supplemental oxyge n ELMO Felix JR 09/03/2020 I35.0 Nonrheumatic aortic (valve) sten osis Kashmir Valles JR, ELMO 09/03/2020 I85.01 Esophageal varices with bleeding ELMO [...] 07/16/2020 I25.10 Atherosclerotic hear t disease of [place] coronary artery without angina pectoris Hector Barrow [...] 2:00 pm - Hector Barrow MD at [facility] 07/16/2020 - Hector Barrow MD* J44.9 Chronic obstructive pulmonary disease, unspecified * J96.11 Chronic respiratory failure with hypoxia * Z99.81 Dependence on supplemental oxygen * I35.0 Nonrheumatic aortic (valve) stenosis * I25.10 Atherosclerotic heart disease of [place] coronary artery without angina pectoris * K92.2 [...]
--- OUTSIDE RECORDS SUMMARY | 2020-12-11 12:45 | CCD | Continuity of Care Document ---
Author Author Marielena Barrow MD Organization Unknown Address [address] [address] Phone [phone] Care Team Providers Care Electric Accounting Machine Operator Name Role Phone Ebony Lakhani AUTM [phone] Austin Rashid MD AUTM [phone] Sarahi Rojas MD AUTM [phone] Hector Barrow JR, MD AUTM Unavailable Monica Carpenter AUTM [phone] Problems Active Problems Provider Date Type 2 diabetes mellitus Hector Barrow MD Onset: 2015 Social History Type Date Description Comments Sex Unknown Tobacco Use Start: Unknown End: Unknown Patient is a former smoker 15 pack/year Allergies, Adverse Reactions, Alerts Active Allergies Criticality Reaction | Severity Comments Date Bacitracin Unable to assess criticality rash 08/28/2015 Latex Allergy Unable to assess criticality swelling at location of contact 08/28/2015 Medications Active Medications SIG Qnty Indications Ordering Provide r Date Prevnar 13 Suspension 0.5 cubic centimeters x 1 1units Hector Barrow MD 12/01/2019 Potassium Chloride ER 10Meq Tablet s ER Take One Tablet By Mouth Every Day 90tabs Sebastián Alexis 10/03/2019 Pantoprazole Sodium 40mg Tablets D R take one tablet by mouth twice a day 180tabs Hector saxena MD 08/11/2019 Ferrousul 325(65Fe) mg Tablets 1 by mouth every day 90tabs Hector Barrow MD 07/13/2019 Lidocaine 5% Cream apply three times daily [...] MD 03/08/2019 Incruse Ellipta 62.5mcg/Inh Aeroso l inhale one puff by mouth daily 30units Hector Barrow MD Nebulizer Kit/Tubing/Mouthpiece K it use four times [...] Vaccine Lot # U-Flu Given 11/16/2019 Influenza,Unspecified 54372 Given 11/16/2019 Shingrix Zoster Vaccine (HZV), Recombinant, Subunit, Adjuvanted 68683 Given 01/19/2017 Influenza Vaccin e Quadrivalent Preser/Antibiotic Free Im Use [id number] 32231 Given 07/17/2016 Pneumovax 23 [id number] Given 12/19/2015 Prevnar 13 [id number] Given 12/02/2015 Fluvirin Virus Vaccine [id number] 01 Vital Signs Date Vital Result Comment 11/15/2020 8:47am BP Systolic 140 mmHg BP Diastolic 80 mmHg Heart Rate 86 /min Weight 226.00 lb O2 % BldC Oximetry 94 % 09/03/2020 10:34am BP Systolic 138 mmHg BP Diastolic 62 mmHg Heart Rate 73 /min Height 62.50 inches 5'2.50" Weight 230.00 lb O2 % BldC Oximetry 94 % on 3L BMI (Body Mass Index) 41.4 kg/m2 Results Test Acquired Date Facility Test Result H/L Range Note Laboratory test finding 11/07/[address] [id number] [phone] Immature Platelet Fraction 14.9 % High 0.0-9 .59 Laboratory test finding 11/07/2020 [facility] [address] [place], [place] [id number] [phone] iSTAT Troponin 0.01 NG/ML Normal 0.00-0.08 Venous Blood Gas 11/07/2020 [facility] [address] [place] [address] [id number] [phone] Venous PH 7.403 units Normal 7.330-7.430 Venous Partial Pressure Co2 45.9 mmHg Normal 38.0-50.0 Venous Partial Pressure O2 141.5 mmHg High 30.0-50.0 Venous Total Co2 29.4 mEq/L High 24.0-28.0 Venous Hco3 28.0 mEq/L High 23.0-27.0 Venous Base Excess 2.9 High -2.0-2.0 Venous Standard Hco3 27.1 mEq/L Normal Venous O2 Saturation 98.8 % High 60.0-80.0 Cardiac Marker Panel 11/07/2020 [facility] enter [address] [place] [address] [phone] CPK Creatine Phosphokinase 105 U/L Normal 26-19 2 CK-MB Value Mass 1.2 NG/ML Normal <3.6 MB/CK Relative Index 1.14 Normal < Or =4 1 Troponin I < 0.02 NG/ML Normal < 0.10 2 Liver Profile 11/07/2020 [facility] [address] [place] [address] [phone] Ast/Sgot 45 IU/L Normal Alt/SGPT 30 IU/L Normal 0-32 Alkaline Phosphatase 220 U/L High 45-117 Bilirubin,Total 1.6 mg/dL High 0.2-1.0 Bilirubin,Direct 0.6 mg/dL High 0.0-0.2 Total Protein 6.0 GM/DL Low 6.4-8.2 Albumin 2.2 GM/DL Low 3.2-5.2 Albumin/Globulin Ratio 0.6 Low 1.2-2.2 Basic Metabolic Profile 11/07/[address] [address] [phone] Glucose, Fasting 99 mg/dL Normal 70-100 Blood Urea Nitrogen 11 mg/dL Normal 7-18 Creatinine For GFR 0.82 mg/dL Normal 0.55-1.30 Glomerular Filtration Rate > 60.0 Normal >32 3 Sodium Level 140 mEq/L Normal 136-145 Potassium Serum 5.0 mEq/L Normal 3.5-5.1 Chloride Level 111 mEq/L High 98-107 Carbon Dioxide Level 27 mmol/L Normal 20-29 Anion Gap 2 mEq/L Low 8-16 Calcium Level 8.1 mg/dL Low 8.8-10.2 Laboratory test finding 11/07/[address] [address] [phone] NT-Pro BNP 901 pg/mL High <450 Thyroid Stimulating Hormone < 0.005 uIU/ML Low 0.358-3.740 Respiratory Panel 11/07/2020 [facility] [address] [place] [address] [phone] Respiratory Panel This respiratory <SEE NOTE> 4 CBC With Differential 11/07/2020 [facility] [address] [place] [address] [phone] White Blood Count 4.2 10 Normal 4.0-10.0 [...] 36.0-66.0 Lymph % 22.1 % Low 24.0-44.0 Barber % 18.8 % High 2.0-8.0 Eos % 5.5 % High 0.0-3.0 Baso % 0.2 % Normal 0.0-1.0 Immature Granulocyte % 0.2 % Normal 0-3.0 Nucleated Red Blood Cell % 0.0 % Normal 0-0 Neutrophils # 2.2 10 Normal 1.5-8.5 Lymph # 0.9 10 Low 1.5-5.0 Barber # 0.8 10 Normal 0.0-0.8 Eos # 0.2 10 Normal 0.0-0.5 Baso # 0.0 10 Normal 0.0-0.2 Basic Metabolic Panel 09/03/2020 [facility] Clerk Checker: [place] [address] [phone] Glucose 148 mg/dL High 74 - 99 5 BUN 6 mg/dL Low 7 - 18 Creatinine 0.9 mg/dL 0.6 - 1.3 Sodium 143 mEq/L 136 - 145 Potassium 4.1 mEq/L 3.5 - 5.1 Chloride 107 mEq/L 98 - 107 Carbon Dioxide 32 mEq/L 21 - 32 Calcium 8.3 mg/dL Low 8.5 - 10.1 GFR 60 mL/min Low >60 GFR >= 60 mL/min >60 6 Complete Blood Count 09/03/2020 [facility] stew[facility] reyna Clerk Checker: [place] [address] [phone] WBC 3.7 x10*3/UL Low 4.1 - 10.9 7 RBC 3.53 x10*6/UL Low 4.20 - 6.30 [...] Neut # 2.6 x10*3/UL 2.0 - 7.8 Total Iron Binding Capacit 07/16/2020 [facility] [place] [address] [place] [address] [phone] Iron (Fe) 64 g/dL Normal 50-170 Total Iron Binding Capacity 367 g/dL Normal 250-450 Percent Saturation 17.4 % Normal 13.2-45.0 Prothrombin Time/Inr 07/16/2020 [facility] enter [address] [place] [address] [phone] Prothrombin Time 16.9 seconds High 12.5-14.3 Inr 1.34 Normal 8 Laboratory test finding 07/16/2020 [facility] [address] [place] [address] [phone] Ammonia 64 uMOL/L High <32 Complete Blood Count 07/16/2020 [facility] Clerk Checker: [place] [address] [phone] WBC 4.0 x10*3/UL Low 4.1 - 10.9 RBC 3.19 x10*6/UL Low 4.20 - 6.30 Hemoglobin 9.1 g/dL Low 12.0 - 18.0 Hematocrit 27.5 % Low 37.0 - 51.0 MCV 86.1 fL 80.0 - 97.0 MCH 28.4 pg 26.0 - 32.0 MCHC 33.0 g/dL 31.0 - 38.0 RDW 15.0 % High 11.6 - 13.7 PLT 53 x10*3/UL Low 140 - 440 9 MPV 10.5 FL 7.8 - 11.0 Lymph % 25.3 % 10.0 - 58.5 Mid % 7.4 % 1.7 - 9.3 Neut % 67.3 % 37.0 - 92.0 Lymph # 1.0 x10*3/UL 0.6 - 4.1 Mid # 0.3 x10*3/UL 0.1 - 0.6 Neut # 2.7 x10*3/UL 2.0 - 7.8 A1c 07/16/2020 [facility] Clerk Checker: [place] [address] [phone] Hba1c 5.5 % <5.7 10 Est Avg Glucose 111 mg/dL High 60 - 110 Comprehensive Chem Profile 07/16/2020 [facility] Clerk Checker: [place] [address] [phone] Glucose 121 mg/dL High 74 - 99 11 BUN 8 mg/dL 7 - 18 Creatinine [...] >60 GFR >= 60 mL/min >60 12 Lipid Profile 07/16/2020 [facility] Clerk Checker: Dr Hector Barrow [place], [place] [id number] [phone] Cholesterol 97 mg/dL Low 131 - 200 Triglycerides 47 mg/dL 30 - 150 HDL Cholesterol 70 mg/dL High 35 - 60 LDL (Calculated) INVALID CALC 50 - 159 Laboratory test finding 07/16/2020 [facility] Clerk Checker: [place] [address] [phone] Thyroid Stimulating Hormone 0.04 uIU/mL Low 0.3 6 - 3.74 Coronavirus 2019 Nasopharygeal 06/09/2020 [facility] [address] [place] [address] [phone] Coronavirus 2019 Nasopharygeal ASSAY INFORMATIO <SEE N OTE> 13 1 DIAGNOSIS CRITERIA MMB ng/ml Relative Index (RI) NON-AMI < or = 5 N/A ZEPEDA ZONE > 5 < or = 4 AMI > 5 > 4 2 Troponin I Reference Interva l for Siemens [place] LOCI: 99th Percentile= 0.00-0.045 ng/ml Risk Stratification: <= 0.10 ng/ml Decreased Risk for Adverse Clinical Events. 0.10-1.50 ng/ml Increased Risk for Adv erse Clinical Events. Evaluation of additional criterion and/or repeat testing in 2-6 hours is suggested to rule out myocardial damage. >= 1.50 ng/ml Indicative of Myocardial Injury. 3 Units are mL/min/1.73 m2 Chronic Kidney Disease Staging per NKF: Stage I & II GFR >=60 Normal to Mildly Decreased Stage III GFR 30-59 Moderately Decreased Stage IV GFR 15-29 Severely Decreased Stage V GFR <15 Very Little GFR Left ESRD GFR <15 on MEDICAL ASSISTING PROGRAM DIRECTOR 4 This respiratory PCR panel d etects Influenza A H1, H3 and 2009 H1 viruses, Influenza B virus, Resp iratory Syncytial Virus, Human metapneumovirus, Parainfluenza virus 1, 2, 3 and 4, Adenovirus, Rhinovirus/Enterovirus, Coronavirus HKU1, NL63, OC43, 229E and SARS-CoV-2 (COVID 19), Bordetella pertussis, Bordetella parapertussis, Mycoplasma pneumoniae and Chlamydia pneumoniae. NEGATIVE by MULTIPLEXED NUCLEIC ACID PCR SARS-CoV-2 (COVID 19) NEGATIVE - SARS-CoV-2 (COVID19) 5 100-125 mg/dL PRE-DIABET ES/FASTING >126 mg/dL DIABETES/FASTING 6 CHRONIC KIDNEY DISEASE STAGI NG PER NKF STAGE I & II GFR >= 60 NORMAL TO MILDLY DECREASED STAGE III GFR 30-59 MODERATELY DECREASED STAGE IV GFR 15-29 SEVERELY DECREASED STAGE V GFR <15 VERY LITTLE GFR LEFT ESRD GFR <15 ON MEDICAL ASSISTING PROGRAM DIRECTOR 7 NOTE: CBC AND PLATELET VEREIFIED 8 THERAPUTIC HUMAN INR VALUES INDICATIONS NORMAL RANGES PROPHYLAXIS/TREATMENT OF: VENOUS THROMBOSIS 2.0-3.0 PULMONARY EMBOLISM 2.0-3.0 PREVENTION OF SYSTEMIC EMBOLISM FROM: TISSUE HEART VALVES 2.0-3.0 ACUTE MYOCARDIAL INFARCTION 2.0-3.0 VALVULAR HEART DISEASE 2.0-3.0 ATRIAL FIBRILLATION 2.0-3.0 MECHANICAL VALVES(HIGH RISK) 2.5-3.5 RECURRENT MYOCARDIAL INFARCTION 2.5-3.5 9 NOTE: RESULT VERIFIED. 10 Lab Result Notes: Pre-Diabetes 5.7 - 6.4 % Diabetes = or > 6.5% 11 100-125 mg/dL PRE-DIABET ES/FASTING >126 mg/dL DIABETES/FASTING 12 CHRONIC KIDNEY DISEASE STAGI NG PER NKF STAGE I & II GFR >= 60 NORMAL TO MILDLY DECREASED STAGE III GFR 30-59 MODERATELY DECREASED STAGE IV GFR 15-29 SEVERELY DECREASED STAGE V GFR <15 VERY LITTLE GFR LEFT ESRD GFR <15 ON MEDICAL ASSISTING PROGRAM DIRECTOR 13 ASSAY INFORMATION: Real Time RT-PCR NOTE: The COVID-19 assay has been cleared by the U.S. Food and Drug Administration under the Emergency Use Authorization (EUA). [facility] and [facility] are designated as high complexity laboratories by the Clinical Laboratory Improvement Amendments of 1988(CLIA) and are qualified to perform this test. Not Detected Procedures Date Code Description Status 09/03/2020 47173 Aparicio Cre SRV W/I 7 Days Of DC, C omm W/I 2 Dys Med Rec Completed 07/16/2020 27939 Office/Outpatient Established Mo d MDM 30-39 Min Completed 05/09/2018 [id number] Diabetic Retinal Eye Exam Comple symone 04/18/2018 [id number] Diabetic Retinal Eye Exam Comple symone 10/26/2017 [id number] Colonoscopy Completed 04/13/2016 [id number] Diabetic Retinal Eye Exam Comple symone 03/25/2016 [id number] Diabetic Retinal Eye Exam Comple symone 03/19/2016 [id number] Diabetic Retinal Eye Exam Comple [facility] Medical Devices Description No Information Available Encounters Type Date Location Provider Dx Diagnosis Office Visit 09/03/2020 10:20a [facility], [place] K31.811 Angiodysplasia of stomach an [...] E03.9 Hypothyroidism, unspecified Office Visit 07/16/2020 1:00p [facility] B[facility] MD J44.9 Chronic obstructive pulmonary disease, [...] 4.9, adult Assessments Date Code Description Provider 09/03/2020 K31.811 Angiodysplasia of stomach and du odenum with bleeding ELMO Felix JR 09/03/2020 I25.10 Atherosclerotic hear t disease of [place] coronary artery without angina pectoris ELMO Felix JR 09/03/2020 J44.9 Chronic obstructive pulmonary di sease, unspecified ELMO Felix JR 09/03/2020 J96.11 Chronic [...] 07/16/2020 I25.10 Atherosclerotic hear t disease of [place] coronary artery without angina pectoris Hector Barrow [...] 2:00 pm - Hector Barrow MD at [facility] Functional Status Description No Information Available Mental Status Description No Information Available Referrals Description No Information Available
--- OUTSIDE RECORDS SUMMARY | 2020-12-11 12:45 | CCD | Continuity of Care Document ---
Author Author Lab Marielena Mccray Organization Unknown Address [address] [address] Phone Unavailable Care Team Providers Care Associate Software Developer Name Role Phone KarEbony AUTM [phone] Austin Rashid MD AUTM [phone] Sarahi Rojas MD AUTM [phone] Hector Barrow JR, MD AUTM Unavailable ClairKeo rosenthalsonido AUTM [phone] Problems Active Problems Provider Date Type 2 [...] Vaccine Lot # U-Flu Given 11/16/2019 Influenza,Unspecified 58507 Given 11/16/2019 Shingrix Zoster Vaccine (HZV), Recombinant, Subunit, Adjuvanted 13536 Given 01/19/2017 Influenza Vaccin e Quadrivalent Preser/Antibiotic Free Im Use [id number] 97755 Given 07/17/2016 Pneumovax 23 [id number] Given 12/19/2015 Prevnar 13 [id number] Given 12/02/2015 Fluvirin Virus Vaccine 03919 01 Vital Signs Date Vital Result Comment [...] H/L Range Note Complete Blood Count 11/22/2020 [facility] Gear Hobber Set Up Operator: [place] [address] [phone] WBC 3.9 x10*3/UL Low 4.1 - 10.9 [...] & Screen -Incl Blood Type,Zhen,AB SC 11/15/[address] [id number] [phone] Blood Type O POSITIVE Normal AB Screen (Indirect Adilia)Vis NEGATIVE Normal Total Iron Binding Capacit 11/15/[address] [address] [phone] Iron (Fe) 103 g/dL Normal 50-170 Total Iron Binding Capacity 303 g/dL Normal 250-450 Percent Saturation 34.0 % Normal 13.2-45.0 Complete Blood Count 11/15/2020 [facility] Gear Hobber Set Up Operator: [place] [address] [phone] WBC 4.0 x10*3/UL Low 4.1 - 10.9 [...] 2.0 - 7.8 Laboratory test finding 11/15/[address] [facility] Gear Hobber Set Up Operator: Dr Young [place] [address]2800 [phone] Magnesium 1.5 mg/dL Low 1.8 - 2.4 Comprehensive Chem Profile 11/15/2020 [facility] Hobber Set Up Operator: [place] [address] [phone] Glucose 101 mg/dL High 74 - 99 [...] mL/min >60 4 Laboratory test finding 11/07/2020 [facility] [address] [place] [address] [phone] NT-Pro BNP 901 pg/mL High <450 Thyroid Stimulating Hormone < 0.005 uIU/ML Low 0.358-3.740 Respiratory Panel 11/07/2020 [facility] n[facility] [address] [place] [address] [phone] Respiratory Panel This respiratory <SEE NOTE> 5 Basic Metabolic Profile 11/07/2020 [facility] [address] [place] [address] [phone] Glucose, Fasting 99 mg/dL Normal 70-100 Blood [...] 8.1 mg/dL Low 8.8-10.2 Liver Profile 11/07/2020 [facility] [address] [place] [address] [phone] Ast/Sgot 45 IU/L Normal Alt/SGPT 30 IU/L Normal 0-32 Alkaline Phosphatase 220 U/L High 45-117 Bilirubin,Total 1.6 mg/dL High 0.2-1.0 Bilirubin,Direct 0.6 mg/dL High 0.0-0.2 Total Protein 6.0 GM/DL Low 6.4-8.2 Albumin 2.2 GM/DL Low 3.2-5.2 Albumin/Globulin Ratio 0.6 Low 1.2-2.2 Cardiac Marker Panel 11/07/[address] [address] [phone] CPK Creatine Phosphokinase 105 U/L Normal 26-19 2 CK-MB Value Mass 1.2 NG/ML Normal <3.6 MB/CK Relative Index 1.14 Normal < Or =4 7 Troponin I < 0.02 NG/ML Normal < 0.10 8 Venous Blood Gas 11/07/[address] [address] [phone] Venous PH 7.403 units Normal 7.330-7.430 Venous Partial Pressure Co2 45.9 mmHg Normal 38.0-50.0 Venous Partial Pressure O2 141.5 mmHg High 30.0-50.0 Venous Total Co2 29.4 mEq/L High 24.0-28.0 Venous Hco3 28.0 mEq/L High 23.0-27.0 Venous Base Excess 2.9 High -2.0-2.0 Venous Standard Hco3 27.1 mEq/L Normal Venous O2 Saturation 98.8 % High 60.0-80.0 Laboratory test finding 11/07/[address] [address] [phone] iSTAT Troponin 0.01 NG/ML Normal 0.00-0.08 Laboratory test finding 11/07/2020 [facility] [address] [place] [address] [phone] Immature Platelet Fraction 14.9 % High 0.0-9 .59 CBC With Differential 11/07/2020 [facility] [address] [place] [address] [phone] White Blood Count 4.2 10 Normal 4.0-10.0 [...] 36.0-66.0 Lymph % 22.1 % Low 24.0-44.0 [place] % 18.8 % High 2.0-8.0 Eos % 5.5 % High 0.0-3.0 Baso % 0.2 % Normal 0.0-1.0 Immature Granulocyte % 0.2 % Normal 0-3.0 Nucleated Red Blood Cell % 0.0 % Normal 0-0 Neutrophils # 2.2 10 Normal 1.5-8.5 Lymph # 0.9 10 Low 1.5-5.0 [place] # 0.8 10 Normal 0.0-0.8 Eos # 0.2 10 Normal 0.0-0.5 Baso # 0.0 10 Normal 0.0-0.2 Complete Blood Count 09/03/2020 [facility] Gear Hobber Set Up Operator: [place] [address] [phone] WBC 3.7 x10*3/UL Low 4.1 - 10.9 [...] 2.0 - 7.8 Basic Metabolic Panel 09/03/2020 [facility] Gear Hobber Set Up Operator: [place] [address] [phone] Glucose 148 mg/dL High 74 - 99 [...] >60 11 Total Iron Binding Capacit 07/16/2020 [facility] [address] [place] [address] [phone] Iron (Fe) 64 g/dL Normal 50-170 Total Iron Binding Capacity 367 g/dL Normal 250-450 Percent Saturation 17.4 % Normal 13.2-45.0 Prothrombin Time/Inr 07/16/2020 [facility] enter [address] [place] [address] [phone] Prothrombin Time 16.9 seconds High 12.5-14.3 Inr 1.34 Normal 12 Laboratory test finding 07/16/2020 [facility] [address] [place] [address] [phone] Ammonia 64 uMOL/L High <32 Complete Blood Count 07/16/2020 [facility] Gear Hobber Set Up Operator: [place] [address] [phone] WBC 4.0 x10*3/UL Low 4.1 - 10.9 [...] 2.7 x10*3/UL 2.0 - 7.8 A1c 07/16/2020 [facility] Hobber Set Up Operator: [place] [address] [phone] Hba1c 5.5 % <5.7 14 Est Avg Glucose 111 mg/dL High 60 - 110 Comprehensive Chem Profile 07/16/2020 [facility] [employer] Hobber Set Up Operator: [place] [address] [phone] Glucose 121 mg/dL High 74 - 99 [...] 60 mL/min >60 16 Lipid Profile 07/16/2020 [facility] Gear Hobber Set Up Operator: Dr Hector Barrow [place], [place] 5[address]42 [phone] Cholesterol 97 mg/dL Low 131 - 200 Triglycerides 47 mg/dL 30 - 150 HDL Cholesterol 70 mg/dL High 35 - 60 LDL (Calculated) INVALID CALC 50 - 159 Laboratory test finding 07/16/[address] [facility] [address] [facility] [address] [facility] Gear Hobber Set Up Operator: [place] [address] [phone] Thyroid Stimulating Hormone 0.04 uIU/mL Low 0.3 6 - 3.74 Coronavirus 2019 Nasopharygeal 06/09/[address] [id number] [phone] Coronavirus 2019 Nasopharygeal ASSAY INFORMATIO <SEE N [...] LITTLE GFR LEFT ESRD GFR <15 ON COMMERCIAL LINES ASSISTANT 5 This respiratory PCR panel d etects [...] Little GFR Left ESRD GFR <15 on COMMERCIAL LINES ASSISTANT 7 DIAGNOSIS CRITERIA MMB ng/ml Relative Index (RI) NON-AMI < or = 5 N/A ZEPEDA ZONE > 5 < or = 4 AMI > 5 > 4 8 Troponin I Reference Interva l for [place] LOCI: 99th Percentile= 0.00-0.045 ng/ml Risk Stratification: [...] LITTLE GFR LEFT ESRD GFR <15 ON COMMERCIAL LINES ASSISTANT 12 THERAPUTIC HUMAN INR VALUES INDICATIONS NORMAL [...] LITTLE GFR LEFT ESRD GFR <15 ON COMMERCIAL LINES ASSISTANT 17 ASSAY INFORMATION: Real Time RT-PCR NOTE: The COVID-19 assay has been cleared by the U.S. Food and Drug Administration under the Emergency Use Authorization (EUA). [facility] and [facility] are designated as high complexity laboratories by the Clinical Laboratory Improvement Amendments of 1988(CLIA) and are qualified to perform this test. Not Detected Procedures Date Code Description Status 11/15/2020 00785 Trans Care SRV W/I 14D Of DC, Co mm W/I 2 Dys Med Rec Completed 09/03/2020 79791 Aparicio Cre SRV W/I 7 Days Of DC, C omm W/I 2 Dys Med Rec Completed 07/16/2020 98604 Office/Outpatient Established Mo d MDM 30-39 Min Completed 05/09/2018 [id number] Diabetic Retinal Eye Exam Comple symone 04/18/2018 [id number] Diabetic Retinal Eye Exam Comple symone 10/26/2017 [id number] Colonoscopy Completed 04/13/2016 [id number] Diabetic Retinal Eye Exam Comple symone 03/25/2016 [id number] Diabetic Retinal Eye Exam Comple symone 03/19/2016 [id number] Diabetic Retinal Eye Exam Comple symone Medical Devices Description No Information Available Encounters Type Date Location Provider Dx Diagnosis Office Visit 11/15/2020 8:40a [facility] Hector Barrow MD K31.811 Angiodysplasia [...] polyneuropathy E83.42 Hypomagnesemia Office Visit 09/03/2020 10:20a [facility] 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 * 12/16/2020 2:00 pm - Hector Barrow MD at [facility] 07/16/2020 - Hector Barrow MD* J44.9 Chronic obstructive pulmonary disease, unspecified * J96.11 Chronic respiratory failure with hypoxia * Z99.81 Dependence on supplemental oxygen * I35.0 Nonrheumatic aortic (valve) stenosis * I25.10 Atherosclerotic heart disease of [place] coronary artery without angina pectoris * K92.2 [...]
--- OUTSIDE RECORDS SUMMARY | 2020-12-11 12:45 | CCD | Continuity of Care Document ---
Author Author Lab Marielena Mccray Organization Unknown Address [address] [address] Phone Unavailable Care Team Providers Care Technical Report Writer Name Role Phone KarEbony AUTM [phone] Austin Rashid MD AUTM [phone] Sarahi Rojas MD AUTM [phone] Hector Barrow JR, MD AUTM Unavailable ClairKeo rosenthalsonido AUTM [phone] Problems Active Problems Provider Date Type 2 [...] Vaccine Lot # U-Flu Given 11/16/2019 Influenza,Unspecified [id number] Given 11/16/2019 Shingrix Zoster Vaccine (HZV), Recombinant, Subunit, Adjuvanted 96407 Given 01/19/2017 Influenza Vaccin e Quadrivalent Preser/Antibiotic Free Im Use [id number] [id number] Given 07/17/2016 Pneumovax 23 [id number] Given 12/19/2015 Prevnar 13 [id number] Given 12/02/2015 Fluvirin Virus Vaccine [id number] 01 Vital Signs Date Vital Result Comment [...] H/L Range Note Complete Blood Count 11/22/2020 [facility] Turner: [place] [address] [phone] WBC 3.9 x10*3/UL Low 4.1 - 10.9 [...] & Screen -Incl Blood Type,Zhen,AB SC 11/15/[address] [id number] [phone] Blood Type O POSITIVE Normal AB Screen (Indirect Adilia)Vis NEGATIVE Normal Total Iron Binding Capacit 11/15/[address] [address] [phone] Iron (Fe) 103 g/dL Normal 50-170 Total Iron Binding Capacity 303 g/dL Normal 250-450 Percent Saturation 34.0 % Normal 13.2-45.0 Complete Blood Count 11/15/2020 [facility] Shirt Turner: [place] [address] [phone] WBC 4.0 x10*3/UL Low 4.1 - 10.9 [...] 2.0 - 7.8 Laboratory test finding 11/15/2020 [facility] Shirt Turner: Dr Young [place] [id number] [phone] Magnesium 1.5 mg/dL Low 1.8 - 2.4 Comprehensive Chem Profile 11/15/2020 [facility] Shirt Turner: [place] [address] [phone] Glucose 101 mg/dL High 74 - 99 [...] mL/min >60 4 Laboratory test finding 11/07/2020 [facility] [address] [place] [address] [phone] NT-Pro BNP 901 pg/mL High <450 Thyroid Stimulating Hormone < 0.005 uIU/ML Low 0.358-3.740 Respiratory Panel 11/07/2020 [facility] nter [address] [place] [address] [phone] Respiratory Panel This respiratory <SEE NOTE> 5 Basic Metabolic Profile 11/07/2020 [facility] [address] [place] [address] [phone] Glucose, Fasting 99 mg/dL Normal 70-100 Blood [...] 8.1 mg/dL Low 8.8-10.2 Liver Profile 11/07/2020 [facility] [address] [place] [address] [phone] Ast/Sgot 45 IU/L Normal Alt/SGPT 30 IU/L Normal 0-32 Alkaline Phosphatase 220 U/L High 45-117 Bilirubin,Total 1.6 mg/dL High 0.2-1.0 Bilirubin,Direct 0.6 mg/dL High 0.0-0.2 Total Protein 6.0 GM/DL Low 6.4-8.2 Albumin 2.2 GM/DL Low 3.2-5.2 Albumin/Globulin Ratio 0.6 Low 1.2-2.2 Cardiac Marker Panel 11/07/[address] [address] [phone] CPK Creatine Phosphokinase 105 U/L Normal 26-19 2 CK-MB Value Mass 1.2 NG/ML Normal <3.6 MB/CK Relative Index 1.14 Normal < Or =4 7 Troponin I < 0.02 NG/ML Normal < 0.10 8 Venous Blood Gas 11/07/[address] [address] [phone] Venous PH 7.403 units Normal 7.330-7.430 Venous Partial Pressure Co2 45.9 mmHg Normal 38.0-50.0 Venous Partial Pressure O2 141.5 mmHg High 30.0-50.0 Venous Total Co2 29.4 mEq/L High 24.0-28.0 Venous Hco3 28.0 mEq/L High 23.0-27.0 Venous Base Excess 2.9 High -2.0-2.0 Venous Standard Hco3 27.1 mEq/L Normal Venous O2 Saturation 98.8 % High 60.0-80.0 Laboratory test finding 11/07/[address] [address] [phone] iSTAT Troponin 0.01 NG/ML Normal 0.00-0.08 Laboratory test finding 11/07/2020 [facility] [address] [place] [address] [phone] Immature Platelet Fraction 14.9 % High 0.0-9 .59 CBC With Differential 11/07/2020 [facility] [address] [place] [address] [phone] White Blood Count 4.2 10 Normal 4.0-10.0 [...] 36.0-66.0 Lymph % 22.1 % Low 24.0-44.0 Ada % 18.8 % High 2.0-8.0 Eos % 5.5 % High 0.0-3.0 Baso % 0.2 % Normal 0.0-1.0 Immature Granulocyte % 0.2 % Normal 0-3.0 Nucleated Red Blood Cell % 0.0 % Normal 0-0 Neutrophils # 2.2 10 Normal 1.5-8.5 Lymph # 0.9 10 Low 1.5-5.0 Ada # 0.8 10 Normal 0.0-0.8 Eos # 0.2 10 Normal 0.0-0.5 Baso # 0.0 10 Normal 0.0-0.2 Complete Blood Count 09/03/2020 [facility] Shirt Turner: [place] [address] [phone] WBC 3.7 x10*3/UL Low 4.1 - 10.9 [...] 2.0 - 7.8 Basic Metabolic Panel 09/03/2020 [facility] Shirt Turner: [place] [address] [phone] Glucose 148 mg/dL High 74 - 99 [...] >60 11 Total Iron Binding Capacit 07/16/2020 [facility] [address] [place] [address] [phone] Iron (Fe) 64 g/dL Normal 50-170 Total Iron Binding Capacity 367 g/dL Normal 250-450 Percent Saturation 17.4 % Normal 13.2-45.0 Prothrombin Time/Inr 07/16/2020 [facility] enter [address] [place] [address] [phone] Prothrombin Time 16.9 seconds High 12.5-14.3 Inr 1.34 Normal 12 Laboratory test finding 07/16/2020 [facility] [address] [place] [address] [phone] Ammonia 64 uMOL/L High <32 Complete Blood Count 07/16/2020 [facility] Shirt Turner: [place] [address] [phone] WBC 4.0 x10*3/UL Low 4.1 - 10.9 [...] 2.7 x10*3/UL 2.0 - 7.8 A1c 07/16/2020 [facility] Turner: [place] [address] [phone] Hba1c 5.5 % <5.7 14 Est Avg Glucose 111 mg/dL High 60 - 110 Comprehensive Chem Profile 07/16/2020 [facility] [place]irt Turner: [place] [address] [phone] Glucose 121 mg/dL High 74 - 99 [...] 60 mL/min >60 16 Lipid Profile 07/16/2020 [facility] Shirt Turner: Dr Hector Barrow [place], [place] [address] [phone] Cholesterol 97 mg/dL Low 131 - 200 Triglycerides 47 mg/dL 30 - 150 HDL Cholesterol 70 mg/dL High 35 - 60 LDL (Calculated) INVALID CALC 50 - 159 Laboratory test finding 07/16/2020 [facility] Shirt Turner: [place] [address] [phone] Thyroid Stimulating Hormone 0.04 uIU/mL Low 0.3 6 - 3.74 Coronavirus 2019 Nasopharygeal 06/09/[address] 4882281 [phone] Coronavirus 2019 Nasopharygeal ASSAY INFORMATIO <SEE N [...] LITTLE GFR LEFT ESRD GFR <15 ON PROCESS DEVELOPMENT CHEMIST 5 This respiratory PCR panel d etects [...] Little GFR Left ESRD GFR <15 on PROCESS DEVELOPMENT CHEMIST 7 DIAGNOSIS CRITERIA MMB ng/ml Relative Index (RI) NON-AMI < or = 5 N/A ZEPEDA ZONE > 5 < or = 4 AMI > 5 > 4 8 Troponin I Reference Interva l for [employer] LOCI: 99th Percentile= 0.00-0.045 ng/ml Risk Stratification: [...] LITTLE GFR LEFT ESRD GFR <15 ON PROCESS DEVELOPMENT CHEMIST 12 THERAPUTIC HUMAN INR VALUES INDICATIONS NORMAL [...] LITTLE GFR LEFT ESRD GFR <15 ON PROCESS DEVELOPMENT CHEMIST 17 ASSAY INFORMATION: Real Time RT-PCR NOTE: The COVID-19 assay has been cleared by the U.S. Food and Drug Administration under the Emergency Use Authorization (EUA). [facility] are designated as high complexity laboratories by the Clinical Laboratory Improvement Amendments of 1988(CLIA) and are qualified to perform this test. Not Detected Procedures Date Code Description Status 11/15/2020 44578 Trans Care SRV W/I 14D Of DC, Co mm W/I 2 Dys Med Rec Completed 09/03/2020 09294 [facility] Cre SRV W/I 7 Days Of DC, C omm W/I 2 Dys Med Rec Completed 07/16/2020 99554 Office/Outpatient Established Mo d MDM 30-39 Min Completed 05/09/2018 [id number] Diabetic Retinal Eye Exam Comple symone 04/18/2018 [id number] Diabetic Retinal Eye Exam Comple symone 10/26/2017 [id number] Colonoscopy Completed 04/13/2016 [id number] Diabetic Retinal Eye Exam Comple symone 03/25/2016 [id number] Diabetic Retinal Eye Exam Comple symone 03/19/2016 [id number] Diabetic Retinal Eye Exam Comple symone Medical Devices Description No Information Available Encounters Type Date Location Provider Dx Diagnosis Office Visit 11/15/2020 8:40a [facility] Hector Barrow MD K31.811 Angiodysplasia [...] polyneuropathy E83.42 Hypomagnesemia Office Visit 09/03/2020 10:20a [facility] ELMO Temple JR K31.811 Angiodysplasia [...] E03.9 Hypothyroidism, unspecified Office Visit 07/16/2020 1:00p [facility] Barrow MD J44.9 Chronic obstructive pulmonary disease, [...] 09/03/2020 I25.10 Atherosclerotic hear t disease of [place] coronary artery without angina pectoris Kashmir Valles [...] 07/16/2020 I25.10 Atherosclerotic hear t disease of [place] coronary artery without angina pectoris Hector Barrow [...] 11/29/2020 10:40 am - Lab Schedule at [facility] * 12/16/2020 2:00 pm - Hector Barrow MD at [facility] 07/16/2020 - Hector Barrow MD* J44.9 Chronic obstructive pulmonary disease, unspecified * J96.11 Chronic respiratory failure with hypoxia * Z99.81 Dependence on supplemental oxygen * I35.0 Nonrheumatic aortic (valve) stenosis * I25.10 Atherosclerotic heart disease of [place] coronary artery without angina pectoris * K92.2 [...]
--- OUTSIDE RECORDS SUMMARY | 2020-12-11 12:45 | CCD | Continuity of Care Document ---
Author Author Lab Marielena Mccray Organization Unknown Address [address] [address] Phone Unavailable Care Team Providers Care Associate Professor Plant Pathology Name Role Phone KarEbony AUTM [phone] Austin Rashid MD AUTM [phone] Sarahi Rojas MD AUTM [phone] Hector Barrow JR, MD AUTM Unavailable MelissaKeo vinsonsonido AUTM [phone] Problems Active Problems Provider Date Type 2 [...] Vaccine Lot # U-Flu Given 11/16/2019 Influenza,Unspecified 87782 Given 11/16/2019 Shingrix Zoster Vaccine (HZV), Recombinant, Subunit, Adjuvanted 01622 Given 01/19/2017 Influenza Vaccin e Quadrivalent Preser/Antibiotic Free Im Use 323202 56982 Given 07/17/2016 Pneumovax 23 [id number] Given 12/19/2015 Prevnar 13 [id number] Given 12/02/2015 Fluvirin Virus Vaccine 10619 01 Vital Signs Date Vital Result Comment [...] H/L Range Note Complete Blood Count 11/22/2020 [facility] [employer] El[employer] Operator: [place] [address] [phone] WBC 3.9 x10*3/UL Low 4.1 - 10.9 [...] & Screen -Incl Blood Type,Zhen,AB SC 11/15/[address] [id number] [phone] Blood Type O POSITIVE Normal AB Screen (Indirect Adilia)Vis NEGATIVE Normal Total Iron Binding Capacit 11/15/[address] [address] [phone] Iron (Fe) 103 g/dL Normal 50-170 Total Iron Binding Capacity 303 g/dL Normal 250-450 Percent Saturation 34.0 % Normal 13.2-45.0 Complete Blood Count 11/15/2020 [facility] [employer] El[employer] Operator: [place] [address] [phone] WBC 4.0 x10*3/UL Low 4.1 - 10.9 [...] 2.0 - 7.8 Laboratory test finding 11/15/2020 [facility] [employer] El[employer] Operator: Dr Young [place] [id number] [phone] Magnesium 1.5 mg/dL Low 1.8 - 2.4 Comprehensive Chem Profile 11/15/2020 [facility] [employer] Elastic Operator: [place] [address] [phone] Glucose 101 mg/dL High 74 - 99 [...] mL/min >60 4 Laboratory test finding 11/07/2020 [facility] [address] [place] [address] [phone] NT-Pro BNP 901 pg/mL High <450 Thyroid Stimulating Hormone < 0.005 uIU/ML Low 0.358-3.740 Respiratory Panel 11/07/2020 [facility] nter [address] [place] [address] [phone] Respiratory Panel This respiratory <SEE NOTE> 5 Basic Metabolic Profile 11/07/2020 [facility] [address] [place] [address] [phone] Glucose, Fasting 99 mg/dL Normal 70-100 Blood [...] 8.1 mg/dL Low 8.8-10.2 Liver Profile 11/07/2020 [facility] [address] [place] [address] [phone] Ast/Sgot 45 IU/L Normal Alt/SGPT 30 IU/L Normal 0-32 Alkaline Phosphatase 220 U/L High 45-117 Bilirubin,Total 1.6 mg/dL High 0.2-1.0 Bilirubin,Direct 0.6 mg/dL High 0.0-0.2 Total Protein 6.0 GM/DL Low 6.4-8.2 Albumin 2.2 GM/DL Low 3.2-5.2 Albumin/Globulin Ratio 0.6 Low 1.2-2.2 Cardiac Marker Panel 11/07/[address] [address] [phone] CPK Creatine Phosphokinase 105 U/L Normal 26-19 2 CK-MB Value Mass 1.2 NG/ML Normal <3.6 MB/CK Relative Index 1.14 Normal < Or =4 7 Troponin I < 0.02 NG/ML Normal < 0.10 8 Venous Blood Gas 11/07/[address] [address] [phone] Venous PH 7.403 units Normal 7.330-7.430 Venous Partial Pressure Co2 45.9 mmHg Normal 38.0-50.0 Venous Partial Pressure O2 141.5 mmHg High 30.0-50.0 Venous Total Co2 29.4 mEq/L High 24.0-28.0 Venous Hco3 28.0 mEq/L High 23.0-27.0 Venous Base Excess 2.9 High -2.0-2.0 Venous Standard Hco3 27.1 mEq/L Normal Venous O2 Saturation 98.8 % High 60.0-80.0 Laboratory test finding 11/07/[address] [address] [phone] iSTAT Troponin 0.01 NG/ML Normal 0.00-0.08 Laboratory test finding 11/07/2020 [facility] [address] [place] [address] [phone] Immature Platelet Fraction 14.9 % High 0.0-9 .59 CBC With Differential 11/07/2020 [facility] [address] [place] [address] [phone] White Blood Count 4.2 10 Normal 4.0-10.0 [...] 36.0-66.0 Lymph % 22.1 % Low 24.0-44.0 [place] % 18.8 % High 2.0-8.0 Eos % 5.5 % High 0.0-3.0 Baso % 0.2 % Normal 0.0-1.0 Immature Granulocyte % 0.2 % Normal 0-3.0 Nucleated Red Blood Cell % 0.0 % Normal 0-0 Neutrophils # 2.2 10 Normal 1.5-8.5 Lymph # 0.9 10 Low 1.5-5.0 [place] # 0.8 10 Normal 0.0-0.8 Eos # 0.2 10 Normal 0.0-0.5 Baso # 0.0 10 Normal 0.0-0.2 Complete Blood Count 09/03/2020 [facility] [employer] El[employer] Operator: [place] [address] [phone] WBC 3.7 x10*3/UL Low 4.1 - 10.9 [...] 2.0 - 7.8 Basic Metabolic Panel 09/03/2020 [facility] [employer] El[employer] Operator: [place] [address] [phone] Glucose 148 mg/dL High 74 - 99 [...] >60 11 Total Iron Binding Capacit 07/16/2020 [facility] [address] [place] [address] [phone] Iron (Fe) 64 g/dL Normal 50-170 Total Iron Binding Capacity 367 g/dL Normal 250-450 Percent Saturation 17.4 % Normal 13.2-45.0 Prothrombin Time/Inr 07/16/2020 [facility] enter [address] [place] [address] [phone] Prothrombin Time 16.9 seconds High 12.5-14.3 Inr 1.34 Normal 12 Laboratory test finding 07/16/2020 [facility] [address] [place] [address] [phone] Ammonia 64 uMOL/L High <32 Complete Blood Count 07/16/2020 [facility] [employer] Operator: [place] [address] [phone] WBC 4.0 x10*3/UL Low 4.1 - 10.9 [...] 2.7 x10*3/UL 2.0 - 7.8 A1c 07/16/2020 [facility] [employer] Operator: [place] [address] [phone] Hba1c 5.5 % <5.7 14 Est Avg Glucose 111 mg/dL High 60 - 110 Comprehensive Chem Profile 07/16/2020 [facility] [employer] Operator: [place] [address] [phone] Glucose 121 mg/dL High 74 - 99 [...] 60 mL/min >60 16 Lipid Profile 07/16/2020 [facility] [employer] Operator: Dr Hector Barrow [place], [place] [address] [phone] Cholesterol 97 mg/dL Low 131 - 200 Triglycerides 47 mg/dL 30 - 150 HDL Cholesterol 70 mg/dL High 35 - 60 LDL (Calculated) INVALID CALC 50 - 159 Laboratory test finding 07/16/2020 [facility] [employer] El[employer] Operator: [place] [address] [phone] Thyroid Stimulating Hormone 0.04 uIU/mL Low 0.3 6 - 3.74 Coronavirus 2019 Nasopharygeal 06/09/[address] [id number] [phone] Coronavirus 2019 Nasopharygeal ASSAY INFORMATIO <SEE N [...] LITTLE GFR LEFT ESRD GFR <15 ON BELT LOOP MAKER 5 This respiratory PCR panel d etects [...] Little GFR Left ESRD GFR <15 on BELT LOOP MAKER 7 DIAGNOSIS CRITERIA MMB ng/ml Relative Index (RI) NON-AMI < or = 5 N/A ZEPEDA ZONE > 5 < or = 4 AMI > 5 > 4 8 Troponin I Reference Interva l for [employer] LOCI: 99th Percentile= 0.00-0.045 ng/ml Risk Stratification: [...] LITTLE GFR LEFT ESRD GFR <15 ON BELT LOOP MAKER 12 THERAPUTIC HUMAN INR VALUES INDICATIONS NORMAL [...] LITTLE GFR LEFT ESRD GFR <15 ON BELT LOOP MAKER 17 ASSAY INFORMATION: Real Time RT-PCR NOTE: The COVID-19 assay has been cleared by the U.S. Food and Drug Administration under the Emergency Use Authorization (EUA). [employer] [facility] [employer] are designated as high complexity laboratories by the Clinical Laboratory Improvement Amendments of 1988(CLIA) and are qualified to perform this test. Not Detected Procedures Date Code Description Status 11/15/2020 07741 Trans Care SRV W/I 14D Of DC, Co mm W/I 2 Dys Med Rec Completed 09/03/2020 69188 [facility] Cre SRV W/I 7 Days Of DC, C omm W/I 2 Dys Med Rec Completed 07/16/2020 46420 Office/Outpatient Established Mo d MDM 30-39 Min Completed 05/09/2018 [id number] Diabetic Retinal Eye Exam Comple symone 04/18/2018 [id number] Diabetic Retinal Eye Exam Comple symone 10/26/2017 [id number] Colonoscopy Completed 04/13/2016 [id number] Diabetic Retinal Eye Exam Comple symone 03/25/2016 [id number] Diabetic Retinal Eye Exam Comple symone 03/19/2016 [id number] Diabetic Retinal Eye Exam Comple symone Medical Devices Description No Information Available Encounters Type Date Location Provider Dx Diagnosis Office Visit 11/15/2020 8:40a [facility] Hectro Barrow MD K31.811 Angiodysplasia of stomach and [...] polyneuropathy E83.42 Hypomagnesemia Office Visit 09/03/2020 10:20a [facility] ELMO Temple JR K31.811 Angiodysplasia [...] E03.9 Hypothyroidism, unspecified Office Visit 07/16/2020 1:00p [facility] PE[facility]her[facility]her Barrow MD J44.9 Chronic obstructive [...] 09/03/2020 I25.10 Atherosclerotic hear t disease of [place] coronary artery without angina pectoris Kashmir Valles [...] 07/16/2020 I25.10 Atherosclerotic hear t disease of [place] coronary artery without angina pectoris Hector Barrow [...] 11/29/2020 10:40 am - Lab Schedule at [facility] * 12/16/2020 2:00 pm - Hector Barrow MD at [facility] 07/16/2020 - Hector Barrow MD* J44.9 Chronic obstructive pulmonary disease, unspecified * J96.11 Chronic respiratory failure with hypoxia * Z99.81 Dependence on supplemental oxygen * I35.0 Nonrheumatic aortic (valve) stenosis * I25.10 Atherosclerotic heart disease of [place] coronary artery without angina pectoris * K92.2 [...]
--- OUTSIDE RECORDS SUMMARY | 2020-12-11 12:45 | CCD | Continuity of Care Document ---
Author Author Marielena Barrow MD Organization Unknown Address [address] [address] Phone [phone] Care Team Providers Care Map Editor Name Role Phone Ebony Lakhani AUTM [phone] Austin Rashid MD AUTM [phone] Sarahi Rojas MD AUTM [phone] Hector Barrow JR, MD AUTM Unavailable Monica Carpenter AUTM [phone] Problems Active Problems Provider Date Type 2 [...] Vaccine Lot # U-Flu Given 11/16/2019 Influenza,Unspecified 26934 Given 11/16/2019 Shingrix Zoster Vaccine (HZV), Recombinant, Subunit, Adjuvanted 35151 Given 01/19/2017 Influenza Vaccin e Quadrivalent Preser/Antibiotic Free Im Use [id number] 44645 Given 07/17/2016 Pneumovax 23 [id number] Given 12/19/2015 Prevnar 13 [id number] Given 12/02/2015 Fluvirin Virus Vaccine [id number] 01 Vital Signs Date Vital Result Comment [...] Date Facility Test Result H/L Range Note Total Iron Binding Capacit 11/15/2020 [facility] [address], [place] [id number] [phone] Iron (Fe) 103 g/dL Normal 50-170 Total Iron Binding Capacity 303 g/dL Normal 250-450 Percent Saturation 34.0 % Normal 13.2-45.0 Complete Blood Count 11/15/2020 [facility] Purchasing Associate: Dr Hector Barrow [place], [place] [address] [phone] WBC 4.0 x10*3/UL Low 4.1 - 10.9 [...] 2.0 - 7.8 Laboratory test finding 11/15/2020 [facility] Purchasing Associate: [place] [address] [phone] Magnesium 1.5 mg/dL Low 1.8 - 2.4 Comprehensive Chem Profile 11/15/2020 [facility] Purchasing Associate: [place] [address] [phone] Glucose 101 mg/dL High 74 - 99 1 BUN 9 mg/dL 7 - 18 Creatinine 0.9 mg/dL 0.6 - 1.3 Sodium 143 mEq/L 136 - 145 Potassium 4.4 mEq/L 3.5 - 5.1 Chloride 110 mEq/L High 98 - 107 Carbon Dioxide 29 mEq/L 21 - 32 Calcium 8.5 mg/dL 8.5 - 10.1 Alk. Phosphatase 271 mg/dL High 46 - 116 2 Total Bilirubin 1.4 mg/dL High 0.2 - 1.0 Ast (Sgot) 43 U/L High 15 - 37 Alt (SGPT) 28 U/L 12 - 78 Albumin 2.3 g/dL Low 3.4 - 5.0 Total Protein 6.2 g/dL Low 6.4 - 8.2 A/G Ratio 0.59 CALC Low 1.00 - 1.90 GFR 60 mL/min Low >60 GFR >= 60 mL/min >60 3 Type & Screen -Incl Blood Type,Zhen,AB SC 11/15/2020 [facility] [address] [place] [address] [phone] Blood Type O POSITIVE Normal AB Screen (Indirect Adilia)Vis NEGATIVE Normal Laboratory test finding 11/07/[address] [address] [phone] NT-Pro BNP 901 pg/mL High <450 Thyroid Stimulating Hormone < 0.005 uIU/ML Low 0.358-3.740 Respiratory Panel 11/07/2020 [facility] [address] [place] [address] [phone] Respiratory Panel This respiratory <SEE NOTE> 4 Basic Metabolic Profile 11/07/[address] [address] [phone] Glucose, Fasting 99 mg/dL Normal 70-100 Blood [...] 8.1 mg/dL Low 8.8-10.2 Liver Profile 11/07/[address] [address] [phone] Ast/Sgot 45 IU/L Normal Alt/SGPT 30 IU/L Normal 0-32 Alkaline Phosphatase 220 U/L High 45-117 Bilirubin,Total 1.6 mg/dL High 0.2-1.0 Bilirubin,Direct 0.6 mg/dL High 0.0-0.2 Total Protein 6.0 GM/DL Low 6.4-8.2 Albumin 2.2 GM/DL Low 3.2-5.2 Albumin/Globulin Ratio 0.6 Low 1.2-2.2 Cardiac Marker Panel 11/07/[address] [address] [phone] CPK Creatine Phosphokinase 105 U/L Normal 26-19 2 CK-MB Value Mass 1.2 NG/ML Normal <3.6 MB/CK Relative Index 1.14 Normal < Or =4 6 Troponin I < 0.02 NG/ML Normal < 0.10 7 Venous Blood Gas 11/07/2020 [facility] nter [address] [place] [address] [phone] Venous PH 7.403 units Normal 7.330-7.430 Venous Partial Pressure Co2 45.9 mmHg Normal 38.0-50.0 Venous Partial Pressure O2 141.5 mmHg High 30.0-50.0 Venous Total Co2 29.4 mEq/L High 24.0-28.0 Venous Hco3 28.0 mEq/L High 23.0-27.0 Venous Base Excess 2.9 High -2.0-2.0 Venous Standard Hco3 27.1 mEq/L Normal Venous O2 Saturation 98.8 % High 60.0-80.0 Laboratory test finding 11/07/[address] [address] [phone] iSTAT Troponin 0.01 NG/ML Normal 0.00-0.08 Laboratory test finding 11/07/[address] [address] [phone] Immature Platelet Fraction 14.9 % High 0.0-9 .59 CBC With Differential 11/07/[address] [address] [phone] White Blood Count 4.2 10 Normal 4.0-10.0 [...] 36.0-66.0 Lymph % 22.1 % Low 24.0-44.0 [place] % 18.8 % High 2.0-8.0 Eos % 5.5 % High 0.0-3.0 Baso % 0.2 % Normal 0.0-1.0 Immature Granulocyte % 0.2 % Normal 0-3.0 Nucleated Red Blood Cell % 0.0 % Normal 0-0 Neutrophils # 2.2 10 Normal 1.5-8.5 Lymph # 0.9 10 Low 1.5-5.0 [place] # 0.8 10 Normal 0.0-0.8 Eos # 0.2 10 Normal 0.0-0.5 Baso # 0.0 10 Normal 0.0-0.2 Complete Blood Count 09/03/2020 [facility] Purchasing Associate: [place] [address] [phone] WBC 3.7 x10*3/UL Low 4.1 - 10.9 8 RBC 3.53 x10*6/UL Low 4.20 - 6.30 [...] 2.0 - 7.8 Basic Metabolic Panel 09/03/2020 [facility] Purchasing Associate: [place] [address] [phone] Glucose 148 mg/dL High 74 - 99 9 BUN 6 mg/dL Low 7 - 18 Creatinine 0.9 mg/dL 0.6 - 1.3 Sodium 143 mEq/L 136 - 145 Potassium 4.1 mEq/L 3.5 - 5.1 Chloride 107 mEq/L 98 - 107 Carbon Dioxide 32 mEq/L 21 - 32 Calcium 8.3 mg/dL Low 8.5 - 10.1 GFR 60 mL/min Low >60 GFR >= 60 mL/min >60 10 Total Iron Binding Capacit 07/16/2020 [facility] [address], [place] [address] [phone] Iron (Fe) 64 g/dL Normal 50-170 Total Iron Binding Capacity 367 g/dL Normal 250-450 Percent Saturation 17.4 % Normal 13.2-45.0 Prothrombin Time/Inr 07/16/2020 [facility] enter [address] [place] [address] [phone] Prothrombin Time 16.9 seconds High 12.5-14.3 Inr 1.34 Normal 11 Laboratory test finding 07/16/[address] [address] [phone] Ammonia 64 uMOL/L High <32 Complete Blood Count 07/16/2020 [facility] Purchasing Associate: [place] [address] [phone] WBC 4.0 x10*3/UL Low 4.1 - 10.9 RBC 3.19 x10*6/UL Low 4.20 - 6.30 Hemoglobin 9.1 g/dL Low 12.0 - 18.0 Hematocrit 27.5 % Low 37.0 - 51.0 MCV 86.1 fL 80.0 - 97.0 MCH 28.4 pg 26.0 - 32.0 MCHC 33.0 g/dL 31.0 - 38.0 RDW 15.0 % High 11.6 - 13.7 PLT 53 x10*3/UL Low 140 - 440 12 MPV 10.5 FL 7.8 - 11.0 Lymph % 25.3 % 10.0 - 58.5 Mid % 7.4 % 1.7 - 9.3 Neut % 67.3 % 37.0 - 92.0 Lymph # 1.0 x10*3/UL 0.6 - 4.1 Mid # 0.3 x10*3/UL 0.1 - 0.6 Neut # 2.7 x10*3/UL 2.0 - 7.8 A1c 07/16/2020 [facility] Purchasing Associate: [place] [address] [phone] Hba1c 5.5 % <5.7 13 Est Avg Glucose 111 mg/dL High 60 - 110 Comprehensive Chem Profile 07/16/2020 [facility] Purchasing Associate: [place] [address] [phone] Glucose 121 mg/dL High 74 - 99 14 BUN 8 mg/dL 7 - 18 Creatinine [...] Low >60 GFR >= 60 mL/min >60 15 Lipid Profile 07/16/2020 [facility] Purchasing Associate: Dr Hector Barrow [place], [place] [id number] [phone] Cholesterol 97 mg/dL Low 131 - 200 Triglycerides 47 mg/dL 30 - 150 HDL Cholesterol 70 mg/dL High 35 - 60 LDL (Calculated) INVALID CALC 50 - 159 Laboratory test finding 07/16/2020 [facility] Purchasing Associate: [place] [address] [phone] Thyroid Stimulating Hormone 0.04 uIU/mL Low 0.3 6 - 3.74 Coronavirus 2019 Nasopharygeal 06/09/2020 [facility] [address] [place] [address] [phone] Coronavirus 2019 Nasopharygeal ASSAY INFORMATIO <SEE N OTE> 16 1 100-125 mg/dL PRE-DIABET ES/FASTING >126 mg/dL DIABETES/FASTING 2 NOTE: ALK PHOS,T.BILI,AST,ALBU,T.PROTEIN...VERIFIED 3 CHRONIC KIDNEY DISEASE STAGI NG PER NKF STAGE I & II GFR >= 60 NORMAL TO MILDLY DECREASED STAGE III GFR 30-59 MODERATELY DECREASED STAGE IV GFR 15-29 SEVERELY DECREASED STAGE V GFR <15 VERY LITTLE GFR LEFT ESRD GFR <15 ON CLAY MACHINE OPERATOR 4 This respiratory PCR panel d etects [...] (COVID 19) NEGATIVE - SARS-CoV-2 (COVID19) 5 Units are mL/min/1.73 m2 Chronic Kidney Disease Staging per NKF: Stage I & II GFR >=60 Normal to Mildly Decreased Stage III GFR 30-59 Moderately Decreased Stage IV GFR 15-29 Severely Decreased Stage V GFR <15 Very Little GFR Left ESRD GFR <15 on CLAY MACHINE OPERATOR 6 DIAGNOSIS CRITERIA MMB ng/ml Relative Index (RI) NON-AMI < or = 5 N/A ZEPEDA ZONE > 5 < or = 4 AMI > 5 > 4 7 Troponin I Reference Interva l for Siemens [place] LOCI: 99th Percentile= 0.00-0.045 ng/ml Risk Stratification: <= 0.10 ng/ml Decreased Risk for Adverse Clinical Events. 0.10-1.50 ng/ml Increased Risk for Adv erse Clinical Events. Evaluation of additional criterion and/or repeat testing in 2-6 hours is suggested to rule out myocardial damage. >= 1.50 ng/ml Indicative of Myocardial Injury. 8 NOTE: CBC AND PLATELET VEREIFIED 9 100-125 mg/dL PRE-DIABET ES/FASTING >126 mg/dL DIABETES/FASTING 10 CHRONIC KIDNEY DISEASE STAGI NG PER NKF STAGE I & II GFR >= 60 NORMAL TO MILDLY DECREASED STAGE III GFR 30-59 MODERATELY DECREASED STAGE IV GFR 15-29 SEVERELY DECREASED STAGE V GFR <15 VERY LITTLE GFR LEFT ESRD GFR <15 ON CLAY MACHINE OPERATOR 11 THERAPUTIC HUMAN INR VALUES INDICATIONS NORMAL RANGES PROPHYLAXIS/TREATMENT OF: VENOUS THROMBOSIS 2.0-3.0 PULMONARY EMBOLISM 2.0-3.0 PREVENTION OF SYSTEMIC EMBOLISM FROM: TISSUE HEART VALVES 2.0-3.0 ACUTE MYOCARDIAL INFARCTION 2.0-3.0 VALVULAR HEART DISEASE 2.0-3.0 ATRIAL FIBRILLATION 2.0-3.0 MECHANICAL VALVES(HIGH RISK) 2.5-3.5 RECURRENT MYOCARDIAL INFARCTION 2.5-3.5 12 NOTE: RESULT VERIFIED. 13 Lab Result Notes: Pre-Diabetes 5.7 - 6.4 % Diabetes = or > 6.5% 14 100-125 mg/dL PRE-DIABET ES/FASTING >126 mg/dL DIABETES/FASTING 15 CHRONIC KIDNEY DISEASE STAGI NG PER NKF STAGE I & II GFR >= 60 NORMAL TO MILDLY DECREASED STAGE III GFR 30-59 MODERATELY DECREASED STAGE IV GFR 15-29 SEVERELY DECREASED STAGE V GFR <15 VERY LITTLE GFR LEFT ESRD GFR <15 ON CLAY MACHINE OPERATOR 16 ASSAY INFORMATION: Real Time RT-PCR NOTE: The COVID-19 assay has been cleared by the U.S. Food and Drug Administration under the Emergency Use Authorization (EUA). [facility] and [employer] are designated as high complexity laboratories by the Clinical Laboratory Improvement Amendments of 1988(CLIA) and are qualified to perform this test. Not Detected Procedures Date Code Description Status 11/15/2020 66215 Trans Care SRV W/I 14D Of DC, Co mm W/I 2 Dys Med Rec Completed 09/03/2020 83891 Aparicio Cre SRV W/I 7 Days Of DC, C omm W/I 2 Dys Med Rec Completed 07/16/2020 83676 Office/Outpatient Established Mo d MDM 30-39 Min Completed 05/09/2018 [id number] Diabetic Retinal Eye Exam [facility] 04/18/2018 [id number] Diabetic Retinal Eye Exam Comple symone 10/26/2017 [id number] Colonoscopy Completed 04/13/2016 [id number] Diabetic Retinal Eye Exam [facility] 03/25/2016 [id number] Diabetic Retinal Eye Exam [facility] 03/19/2016 [id number] Diabetic Retinal Eye Exam [facility] Medical Devices Description No Information Available Encounters Type Date Location Provider Dx Diagnosis [facility] Visit [facility]2020 [facility] K[facility]811 Angiodysplasia of stomach and duodenum [...] polyneuropathy E83.42 Hypomagnesemia Office Visit 09/03/2020 10:20a [facility] K31.811 Angiodysplasia of stomach an [...] E03.9 Hypothyroidism, unspecified Office Visit 07/16/2020 1:00p [facility] J44.9 Chronic obstructive pulmonary disease, [...] 09/03/2020 I25.10 Atherosclerotic hear t disease of [place] coronary artery without angina pectoris ELMO Felix [...] 07/16/2020 I25.10 Atherosclerotic hear t disease of [place] coronary artery without angina pectoris Hector Barrow [...] 11/29/2020 10:40 am - Lab Schedule at [facility] * 11/22/2020 10:40 am - Lab Schedule at [facility] * 12/16/2020 2:00 pm - Hector Barrow MD at [facility] 07/16/2020 - Hector Barrow MD* J44.9 Chronic obstructive pulmonary disease, unspecified * J96.11 Chronic respiratory failure with hypoxia * Z99.81 Dependence on supplemental oxygen * I35.0 Nonrheumatic aortic (valve) stenosis * I25.10 Atherosclerotic heart disease of [place] coronary artery without angina pectoris * K92.2 [...]
--- OUTSIDE RECORDS SUMMARY | 2020-12-11 12:45 | CCD | Continuity of Care Document ---
Author Author Marielena Barrow MD Organization Unknown Address [address] [address] Phone [phone] Care Team Providers Care Director Game Name Role Phone Ebony Lakhani AUTM [phone] Austin Rashid MD AUTM [phone] Sarahi Rojas MD AUTM [phone] Hector Barrow JR, MD AUTM Unavailable Monica Carpenter AUTM [phone] Problems Active Problems Provider Date Type 2 [...] four times a day as needed 36gm Kashmir orozco JR PA 08/30/2017 Shingrix 50mcg Suspension Rec administer 0.5 [...] Vaccine Lot # U-Flu Given 11/16/2019 Influenza,Unspecified 30101 Given 11/16/2019 Shingrix Zoster Vaccine (HZV), Recombinant, Subunit, Adjuvanted 12637 Given 01/19/2017 Influenza Vaccin e Quadrivalent Preser/Antibiotic Free Im Use 249016 91693 Given 07/17/2016 Pneumovax 23 [id number] 18115 Given 12/19/2015 Prevnar 13 [id number] Given 12/02/2015 Fluvirin Virus Vaccine [id number] 01 Vital Signs Date Vital Result Comment 09/03/2020 10:34am BP Systolic 138 mmHg BP Diastolic 62 mmHg Heart Rate 73 /min Height 62.50 inches 5'2.50" Weight 230.00 lb O2 % BldC Oximetry 94 % on 3L BMI (Body Mass Index) 41.4 kg/m2 07/16/2020 12:51pm BP Systolic 120 mmHg BP Diastolic 66 mmHg Heart Rate 78 /min Height 62.50 inches 5'2.50" Weight 227.00 lb BMI (Body Mass Index) 40.9 kg/m2 Results Test Acquired Date Facility Test Result H/L Range Note Laboratory test finding 11/07/[address] [address] [phone] Immature Platelet Fraction 14.9 % High 0.0-9 .59 Laboratory test finding 11/07/2020 [place] [facility] [address] [place], [place] [address] [phone] iSTAT Troponin 0.01 NG/ML Normal 0.00-0.08 Venous Blood Gas 11/07/2020 [facility] nter [address] [place] [id number] [phone] Venous PH 7.403 units Normal 7.330-7.430 Venous Partial Pressure Co2 45.9 mmHg Normal 38.0-50.0 Venous Partial Pressure O2 141.5 mmHg High 30.0-50.0 Venous Total Co2 29.4 mEq/L High 24.0-28.0 Venous Hco3 28.0 mEq/L High 23.0-27.0 Venous Base Excess 2.9 High -2.0-2.0 Venous Standard Hco3 27.1 mEq/L Normal Venous O2 Saturation 98.8 % High 60.0-80.0 Cardiac Marker Panel 11/07/2020 [facility] enter [address] [place] [address] [phone] CPK Creatine Phosphokinase 105 U/L Normal 26-19 2 CK-MB Value Mass 1.2 NG/ML Normal <3.6 MB/CK Relative Index 1.14 Normal < Or =4 1 Troponin I < 0.02 NG/ML Normal < 0.10 2 Liver Profile 11/07/2020 [facility] nter [address] [place] [address] [phone] Ast/Sgot 45 IU/L Normal Alt/SGPT 30 IU/L Normal 0-32 Alkaline Phosphatase 220 U/L High 45-117 Bilirubin,Total 1.6 mg/dL High 0.2-1.0 Bilirubin,Direct 0.6 mg/dL High 0.0-0.2 Total Protein 6.0 GM/DL Low 6.4-8.2 Albumin 2.2 GM/DL Low 3.2-5.2 Albumin/Globulin Ratio 0.6 Low 1.2-2.2 Basic Metabolic Profile 11/07/[address] [address] [phone] Glucose, Fasting 99 mg/dL Normal 70-100 Blood [...] mg/dL Low 8.8-10.2 Laboratory test finding 11/07/[address] [address] [phone] NT-Pro BNP 901 pg/mL High <450 Thyroid Stimulating Hormone < 0.005 uIU/ML Low 0.358-3.740 Respiratory Panel 11/07/2020 [facility] nter [address] [place] [address] [phone] Respiratory Panel This respiratory <SEE NOTE> 4 CBC With Differential 11/07/2020 [facility] [address] [place] [address] [phone] White Blood Count 4.2 10 Normal 4.0-10.0 [...] 36.0-66.0 Lymph % 22.1 % Low 24.0-44.0 [place] % 18.8 % High 2.0-8.0 Eos % 5.5 % High 0.0-3.0 Baso % 0.2 % Normal 0.0-1.0 Immature Granulocyte % 0.2 % Normal 0-3.0 Nucleated Red Blood Cell % 0.0 % Normal 0-0 Neutrophils # 2.2 10 Normal 1.5-8.5 Lymph # 0.9 10 Low 1.5-5.0 [place] # 0.8 10 Normal 0.0-0.8 Eos # 0.2 10 Normal 0.0-0.5 Baso # 0.0 10 Normal 0.0-0.2 Basic Metabolic Panel 09/03/2020 [facility] Promotions Associate: [place] [address] [phone] Glucose 148 mg/dL High 74 - 99 [...] mL/min >60 6 Complete Blood Count 09/03/2020 [facility] Promotions Associate: [place] [address] [phone] WBC 3.7 x10*3/UL Low 4.1 - 10.9 [...] - 7.8 Total Iron Binding Capacit 07/16/[address] [address] [phone] Iron (Fe) 64 g/dL Normal 50-170 Total Iron Binding Capacity 367 g/dL Normal 250-450 Percent Saturation 17.4 % Normal 13.2-45.0 Prothrombin Time/Inr 07/16/[address] [address] [phone] Prothrombin Time 16.9 seconds High 12.5-14.3 Inr 1.34 Normal 8 Laboratory test finding 07/16/2020 [address] [place] [address] [phone] Ammonia 64 uMOL/L High <32 Complete Blood Count 07/16/2020 [facility] Promotions Associate: Dr Hector Barrow [place], [place] 446[address] [phone] WBC 4.0 x10*3/UL Low 4.1 - 10.9 [...] 2.7 x10*3/UL 2.0 - 7.8 A1c 07/16/2020 [facility] Promotions Associate: [place] [address] [phone] Hba1c 5.5 % <5.7 10 Est Avg Glucose 111 mg/dL High 60 - 110 Comprehensive Chem Profile 07/16/2020 [facility] Promotions Associate: [place] [address] [phone] Glucose 121 mg/dL High 74 - 99 [...] 60 mL/min >60 12 Lipid Profile 07/16/2020 [facility] Promotions Associate: Dr Hector Barrow [place], [place] 0950559 [phone] Cholesterol 97 mg/dL Low 131 - 200 Triglycerides 47 mg/dL 30 - 150 HDL Cholesterol 70 mg/dL High 35 - 60 LDL (Calculated) INVALID CALC 50 - 159 Laboratory test finding 07/16/2020 [facility] Promotions Associate: Dr Hector Barrow [place], [place] [address] [phone] Thyroid Stimulating Hormone 0.04 uIU/mL Low 0.3 6 - 3.74 Coronavirus 2019 Nasopharygeal 06/09/2020 [place] [address] [place], [place] 149[address]21 [phone] Coronavirus 2019 Nasopharygeal ASSAY INFORMATIO <SEE N OTE> 13 1 DIAGNOSIS CRITERIA MMB ng/ml Relative Index (RI) NON-AMI < or = 5 N/A ZEPEDA ZONE > 5 < or = 4 AMI > 5 > 4 2 Troponin I Reference Interva l for Siemens [place] LOCI: 99th Percentile= 0.00-0.045 ng/ml Risk Stratification: [...] Little GFR Left ESRD GFR <15 on BUSINESS LEADER 4 This respiratory PCR panel d etects [...] LITTLE GFR LEFT ESRD GFR <15 ON BUSINESS LEADER 7 NOTE: CBC AND PLATELET VEREIFIED 8 [...] LITTLE GFR LEFT ESRD GFR <15 ON BUSINESS LEADER 13 ASSAY INFORMATION: Real Time RT-PCR NOTE: The COVID-19 assay has been cleared by the U.S. Food and Drug Administration under the Emergency Use Authorization (EUA). [employer] and [employer] are designated as high complexity laboratories by the Clinical Laboratory Improvement Amendments of 1988(CLIA) and are qualified to perform this test. Not Detected Procedures Date Code Description Status 09/03/2020 01057 Aparicio Cre SRV W/I 7 Days Of DC, C omm W/I 2 Dys Med Rec Completed 07/16/2020 16406 Office/Outpatient Established Mo d MDM 30-39 Min Completed 05/09/2018 [id number] Diabetic Retinal Eye Exam Comple symone 04/18/2018 [id number] Diabetic Retinal Eye Exam Comple symone 10/26/2017 92103598 Colonoscopy Completed 04/13/2016 687482434 Diabetic Retinal Eye Exam Comple symone 03/25/2016 [id number] Diabetic Retinal Eye Exam Comple symone 03/19/2016 351414614 Diabetic Retinal Eye Exam Comple symone Medical Devices Description No Information Available Encounters Type Date Location Provider Dx Diagnosis Office Visit 09/03/2020 10:20a [facility], [place] K31.811 Angiodysplasia [...] E03.9 Hypothyroidism, unspecified Office Visit 07/16/2020 1:00p [facility] B[facility] MD J44.9 Chronic obstructive pulmonary disease, [...] 09/03/2020 I25.10 Atherosclerotic hear t disease of [place] coronary artery without angina pectoris ELMO Felix [...] 07/16/2020 I25.10 Atherosclerotic hear t disease of [place] coronary artery without angina pectoris Hector Barrow MD 07/16/2020 K92.2 Gastrointestinal hemorrhage, uns pecified Hector Barrow MD 07/16/2020 I85.01 Esophageal varices with bleeding Hector Barrow MD 07/16/2020 D50.9 Iron deficiency anemia, unspecif ied Hector Barrow MD 07/16/2020 K74.69 Other cirrhosis of liver Hetcor Barrow MD 07/16/2020 E11.42 Type 2 diabetes [...] 2:00 pm - [facility] 07/16[facility]2020 - Hector Barrow MD* J44.9 Chronic obstructive pulmonary disease, unspecified * J96.11 Chronic respiratory failure with hypoxia * Z99.81 Dependence on supplemental oxygen * I35.0 Nonrheumatic aortic (valve) stenosis * I25.10 Atherosclerotic heart disease of [place] coronary artery without angina pectoris * K92.2 [...]
--- OUTSIDE RECORDS SUMMARY | 2020-12-11 12:45 | CCD | Continuity of Care Document ---
Author Author Marielena Barrow MD Organization Unknown Address [address] [address] Phone [phone] Care Team Providers Care Ed Transporter Name Role Phone Ebony Lakhani AUTM [phone] Austin Rashid MD AUTM [phone] Sarahi Rojas MD AUTM [phone] Hector Barrow JR, MD AUTM Unavailable Monica Carpenter AUTM [phone] Problems Active Problems Provider Date Type 2 [...] Vaccine Lot # U-Flu Given 11/16/2019 Influenza,Unspecified 90978 Given 11/16/2019 Shingrix Zoster Vaccine (HZV), Recombinant, Subunit, Adjuvanted 34207 Given 01/19/2017 Influenza Vaccin e Quadrivalent Preser/Antibiotic Free Im Use [id number] Given 07/17/2016 Pneumovax 23 [id number] [id number] Given 12/19/2015 Prevnar 13 [id number] Given 12/02/2015 Fluvirin Virus Vaccine [id number] 01 Vital Signs Date Vital Result Comment [...] H/L Range Note Laboratory test finding 11/07/[address] [id number] [phone] Immature Platelet Fraction 14.9 % High 0.0-9 .59 Laboratory test finding 11/07/2020 [address] [place], [place] 1650549 [phone] iSTAT Troponin 0.01 NG/ML Normal 0.00-0.08 Venous Blood Gas 11/07/2020 [facility] nter [address] [place] [address] [id number] [phone] Venous PH 7.403 units Normal 7.330-7.430 Venous Partial Pressure Co2 45.9 mmHg Normal 38.0-50.0 Venous Partial Pressure O2 141.5 mmHg High 30.0-50.0 Venous Total Co2 29.4 mEq/L High 24.0-28.0 Venous Hco3 28.0 mEq/L High 23.0-27.0 Venous Base Excess 2.9 High -2.0-2.0 Venous Standard Hco3 27.1 mEq/L Normal Venous O2 Saturation 98.8 % High 60.0-80.0 Cardiac Marker Panel 11/07/2020 [facility] enter [address] [place] [address] [phone] CPK Creatine Phosphokinase 105 U/L Normal 26-19 2 CK-MB Value Mass 1.2 NG/ML Normal <3.6 MB/CK Relative Index 1.14 Normal < Or =4 1 Troponin I < 0.02 NG/ML Normal < 0.10 2 Liver Profile 11/07/2020 [facility] nter [address] [place] [address] [phone] Ast/Sgot 45 IU/L Normal Alt/SGPT 30 IU/L Normal 0-32 Alkaline Phosphatase 220 U/L High 45-117 Bilirubin,Total 1.6 mg/dL High 0.2-1.0 Bilirubin,Direct 0.6 mg/dL High 0.0-0.2 Total Protein 6.0 GM/DL Low 6.4-8.2 Albumin 2.2 GM/DL Low 3.2-5.2 Albumin/Globulin Ratio 0.6 Low 1.2-2.2 Basic Metabolic Profile 11/07/[address] [address] [phone] Glucose, Fasting 99 mg/dL Normal 70-100 Blood [...] mg/dL Low 8.8-10.2 Laboratory test finding 11/07/[address] [address] [phone] NT-Pro BNP 901 pg/mL High <450 Thyroid Stimulating Hormone < 0.005 uIU/ML Low 0.358-3.740 Respiratory Panel 11/07/2020 [facility] nter [address] [place] [address] [phone] Respiratory Panel This respiratory <SEE NOTE> 4 CBC With Differential 11/07/2020 [facility] [address] [place] [address] [phone] White Blood Count 4.2 10 Normal 4.0-10.0 [...] 36.0-66.0 Lymph % 22.1 % Low 24.0-44.0 Turner % 18.8 % High 2.0-8.0 Eos % 5.5 % High 0.0-3.0 Baso % 0.2 % Normal 0.0-1.0 Immature Granulocyte % 0.2 % Normal 0-3.0 Nucleated Red Blood Cell % 0.0 % Normal 0-0 Neutrophils # 2.2 10 Normal 1.5-8.5 Lymph # 0.9 10 Low 1.5-5.0 Turner # 0.8 10 Normal 0.0-0.8 Eos # 0.2 10 Normal 0.0-0.5 Baso # 0.0 10 Normal 0.0-0.2 Basic Metabolic Panel 09/03/2020 [facility] Net Applications Developer: [place] [address] [phone] Glucose 148 mg/dL High 74 - 99 [...] mL/min >60 6 Complete Blood Count 09/03/2020 [facility] Net Applications Developer: [place] [address] [phone] WBC 3.7 x10*3/UL Low 4.1 - 10.9 [...] - 7.8 Total Iron Binding Capacit 07/16/[address] [address] [phone] Iron (Fe) 64 g/dL Normal 50-170 Total Iron Binding Capacity 367 g/dL Normal 250-450 Percent Saturation 17.4 % Normal 13.2-45.0 Prothrombin Time/Inr 07/16/[address] [address] [phone] Prothrombin Time 16.9 seconds High 12.5-14.3 Inr 1.34 Normal 8 Laboratory test finding 07/16/2020 [address] [place] [address] [phone] Ammonia 64 uMOL/L High <32 Complete Blood Count 07/16/2020 [facility] Net Applications Developer: Dr Hector Barrow [place], [place] [id number] [phone] WBC 4.0 x10*3/UL Low 4.1 - 10.9 [...] 2.7 x10*3/UL 2.0 - 7.8 A1c 07/16/2020 [facility] Net Applications Developer: [place] [address] [phone] Hba1c 5.5 % <5.7 10 Est Avg Glucose 111 mg/dL High 60 - 110 Comprehensive Chem Profile 07/16/2020 [facility] Net Applications Developer: [place] [address] [phone] Glucose 121 mg/dL High 74 - 99 [...] 60 mL/min >60 12 Lipid Profile 07/16/2020 [facility] Net Applications Developer: Dr Hector Barrow [place], [place] [id number] [phone] Cholesterol 97 mg/dL Low 131 - 200 Triglycerides 47 mg/dL 30 - 150 HDL Cholesterol 70 mg/dL High 35 - 60 LDL (Calculated) INVALID CALC 50 - 159 Laboratory test finding 07/16/2020 [facility] Net Applications Developer: Dr Hector Barrow [place], [place] 79[address] [phone] Thyroid Stimulating Hormone 0.04 uIU/mL Low 0.3 6 - 3.74 Coronavirus 2019 Nasopharygeal 06/09/2020 [address] [place], [place] 1668312 [phone] Coronavirus 2019 Nasopharygeal ASSAY INFORMATIO <SEE N OTE> 13 1 DIAGNOSIS CRITERIA MMB ng/ml Relative Index (RI) NON-AMI < or = 5 N/A ZEPEDA ZONE > 5 < or = 4 AMI > 5 > 4 2 Troponin I Reference Interva l for Siemens [employer] LOCI: 99th Percentile= 0.00-0.045 ng/ml Risk Stratification: [...] Little GFR Left ESRD GFR <15 on POLE PEELING MACHINE OPERATOR HELPER 4 This respiratory PCR panel d etects [...] LITTLE GFR LEFT ESRD GFR <15 ON POLE PEELING MACHINE OPERATOR HELPER 7 NOTE: CBC AND PLATELET VEREIFIED 8 [...] LITTLE GFR LEFT ESRD GFR <15 ON POLE PEELING MACHINE OPERATOR HELPER 13 ASSAY INFORMATION: Real Time RT-PCR NOTE: The COVID-19 assay has been cleared by the U.S. Food and Drug Administration under the Emergency Use Authorization (EUA). [employer] and [employer] are designated as high complexity laboratories by the Clinical Laboratory Improvement Amendments of 1988(CLIA) and are qualified to perform this test. Not Detected Procedures Date Code Description Status 09/03/2020 88630 Aparicio Cre SRV W/I 7 Days Of DC, C omm W/I 2 Dys Med Rec Completed 07/16/2020 [address] Office/Outpatient Established Mo d MDM 30-39 Min Completed 05/09/2018 [id number] Diabetic Retinal Eye Exam Comple symone 04/18/2018 786749331 Diabetic Retinal Eye Exam Comple symone 10/26/2017 [id number] Colonoscopy Completed 04/13/2016 [id number] Diabetic Retinal Eye Exam Comple symone 03/25/2016 [id number] Diabetic Retinal Eye Exam Comple symone 03/19/2016 [id number] Diabetic Retinal Eye Exam Comple symone Medical Devices Description No Information Available Encounters Type Date Location Provider Dx Diagnosis Office Visit 09/03/2020 10:20a [facility]CEsther Valles JR, PA K31.811 Angiodysplasia [...] E03.9 Hypothyroidism, unspecified Office Visit 07/16/2020 1:00p [facility]Bhavana Barrow MD J44.9 Chronic obstructive [...] 09/03/2020 I25.10 Atherosclerotic hear t disease of [place] coronary artery without angina pectoris ELMO Felix [...] 07/16/2020 I25.10 Atherosclerotic hear t disease of [place] coronary artery without angina pectoris Hector Barrow [...] 2:00 pm - Hector Barrow MD at [facility] 07/16/2020 - Hector Barrow MD* J44.9 Chronic obstructive pulmonary disease, unspecified * J96.11 Chronic respiratory failure with hypoxia * Z99.81 Dependence on supplemental oxygen * I35.0 Nonrheumatic aortic (valve) stenosis * I25.10 Atherosclerotic heart disease of [place] coronary artery without angina pectoris * K92.2 [...]
--- OUTSIDE RECORDS SUMMARY | 2020-12-11 12:46 | CCD | Continuity of Care Document ---
Author Author Marielena Barrow MD Organization Unknown Address [address] [address] Phone [phone] Care Team Providers Care Event Staff Name Role Phone Ebony Lakhani AUTM [phone] Autsin Rashid MD AUTM [phone] Sarahi Rojas MD AUTM [phone] Hector Barrow JR, MD AUTM Unavailable Monica Carpenter AUTM [phone] Problems Active Problems Provider Date Type 2 diabetes mellitus Hector Barrow MD Onset: 2015 Social History Type Date Description Comments Sex Unknown Tobacco Use Start: Unknown End: Unknown Patient is a former smoker 15 pack/year Allergies, Adverse Reactions, Alerts Active Allergies Reaction Severity Comments Date Bacitracin rash 08/28/2015 Latex Allergy swelling at location of con tact 08/28/2015 Medications Active Medications SIG Qnty Indications Ordering Provide r Date Prevnar 13 Suspension 0.5 cubic centimeters x 1 1units Hector Barrow MD 12/01/2019 Potassium Chloride ER 10Meq Tablet s ER Take One Tablet By Mouth Every Day 90tabs Sebastián Alexis 10/03/2019 Pantoprazole Sodium 40mg Tablets D R take one tablet by mouth twice a day 90tabs Hector saxena MD 08/11/2019 Ferrousul 325(65Fe) mg [...] MD 01/19/2017 Administration Of Flu Vaccine Inj rajeshion Hector Barrow MD 12/02/2015 Immunizations CPT Code Status Date Vaccine Lot # U-Flu Given 11/16/2019 Influenza,Unspecified 72421 Given 11/16/2019 Shingrix Zoster Vaccine (HZV), Recombinant, Subunit, Adjuvanted 42208 Given 01/19/2017 Influenza Vaccin e Quadrivalent Preser/Antibiotic Free Im Use [id number] 20137 Given 07/17/2016 Pneumovax 23 [id number] 23404 Given 12/19/2015 Prevnar 13 Q2037 Given 12/02/2015 Fluvirin Virus Vaccine 00556 01 Vital Signs Date Vital Result Comment [...] Result H/L Range Note Complete Blood Count 09/03/2020 [facility] Account Planner: Dr Hector Barrow [place] [id number] [phone] WBC 3.7 x10*3/UL Low 4.1 - 10.9 1 RBC 3.53 x10*6/UL Low 4.20 - 6.30 [...] 2.0 - 7.8 Basic Metabolic Panel 09/03/2020 [facility] Account Planner: [place] [address] [phone] Glucose 148 mg/dL High 74 - 99 2 BUN 6 mg/dL Low 7 - 18 Creatinine 0.9 mg/dL 0.6 - 1.3 Sodium 143 mEq/L 136 - 145 Potassium 4.1 mEq/L 3.5 - 5.1 Chloride 107 mEq/L 98 - 107 Carbon Dioxide 32 mEq/L 21 - 32 Calcium 8.3 mg/dL Low 8.5 - 10.1 GFR 60 mL/min Low >60 GFR >= 60 mL/min >60 3 Total Iron Binding Capacit 07/16/2020 [facility] [address] [place] [address] [phone] Iron (Fe) 64 g/dL Normal 50-170 Total Iron Binding Capacity 367 g/dL Normal 250-450 Percent Saturation 17.4 % Normal 13.2-45.0 Prothrombin Time/Inr 07/16/2020 [facility] enter [address] [place] [address] [phone] Prothrombin Time 16.9 seconds High 12.5-14.3 Inr 1.34 Normal 4 Laboratory test finding 07/16/[address] [address] [phone] Ammonia 64 uMOL/L High <32 Complete Blood Count 07/16/2020 [facility] [employer] [facility] Account Planner: [place] [address] [phone] WBC 4.0 x10*3/UL Low 4.1 - 10.9 RBC 3.19 x10*6/UL Low 4.20 - 6.30 Hemoglobin 9.1 g/dL Low 12.0 - 18.0 Hematocrit 27.5 % Low 37.0 - 51.0 MCV 86.1 fL 80.0 - 97.0 MCH 28.4 pg 26.0 - 32.0 MCHC 33.0 g/dL 31.0 - 38.0 RDW 15.0 % High 11.6 - 13.7 PLT 53 x10*3/UL Low 140 - 440 5 MPV 10.5 FL 7.8 - 11.0 Lymph % 25.3 % 10.0 - 58.5 Mid % 7.4 % 1.7 - 9.3 Neut % 67.3 % 37.0 - 92.0 Lymph # 1.0 x10*3/UL 0.6 - 4.1 Mid # 0.3 x10*3/UL 0.1 - 0.6 Neut # 2.7 x10*3/UL 2.0 - 7.8 A1c 07/16/2020 [facility] , Account Planner: Dr Hector Barrow [place], [place] [address] [phone] Hba1c 5.5 % <5.7 6 Est Avg Glucose 111 mg/dL High 60 - 110 Comprehensive Chem Profile 07/16/2020 [facility], Account Planner: Dr Hector [place]g [place], [place] [address] [phone] Glucose 121 mg/dL High 74 - 99 7 BUN 8 mg/dL 7 - 18 Creatinine [...] Low >60 GFR >= 60 mL/min >60 8 Lipid Profile 07/16/2020 [facility] Account Planner: Dr Hector Barrow [place], [place] 5000077 [phone] Cholesterol 97 mg/dL Low 131 - 200 Triglycerides 47 mg/dL 30 - 150 HDL Cholesterol 70 mg/dL High 35 - 60 LDL (Calculated) INVALID CALC 50 - 159 Laboratory test finding 07/16/2020 [facility] Account Planner: [place] [address] [phone] Thyroid Stimulating Hormone 0.04 uIU/mL Low 0.3 6 - 3.74 Coronavirus 2019 Nasopharygeal 06/09/2020 [facility] [address] [place], [place] [address] [phone] Coronavirus 2019 Nasopharygeal ASSAY INFORMATIO <SEE N OTE> 9 1 NOTE: CBC AND PLATELET VEREIFIED 2 100-125 mg/dL PRE-DIABET ES/FASTING >126 mg/dL DIABETES/FASTING 3 CHRONIC KIDNEY DISEASE STAGI NG PER NKF STAGE I & II GFR >= 60 NORMAL TO MILDLY DECREASED STAGE III GFR 30-59 MODERATELY DECREASED STAGE IV GFR 15-29 SEVERELY DECREASED STAGE V GFR <15 VERY LITTLE GFR LEFT ESRD GFR <15 ON RECORDS MANAGEMENT DIRECTOR 4 THERAPUTIC HUMAN INR VALUES INDICATIONS NORMAL RANGES PROPHYLAXIS/TREATMENT OF: VENOUS THROMBOSIS 2.0-3.0 PULMONARY EMBOLISM 2.0-3.0 PREVENTION OF SYSTEMIC EMBOLISM FROM: TISSUE HEART VALVES 2.0-3.0 ACUTE MYOCARDIAL INFARCTION 2.0-3.0 VALVULAR HEART DISEASE 2.0-3.0 ATRIAL FIBRILLATION 2.0-3.0 MECHANICAL VALVES(HIGH RISK) 2.5-3.5 RECURRENT MYOCARDIAL INFARCTION 2.5-3.5 5 NOTE: RESULT VERIFIED. 6 Lab Result Notes: Pre-Diabetes 5.7 - 6.4 % Diabetes = or > 6.5% 7 100-125 mg/dL PRE-DIABET ES/FASTING >126 mg/dL DIABETES/FASTING 8 CHRONIC KIDNEY DISEASE STAGI NG PER NKF STAGE I & II GFR >= 60 NORMAL TO MILDLY DECREASED STAGE III GFR 30-59 MODERATELY DECREASED STAGE IV GFR 15-29 SEVERELY DECREASED STAGE V GFR <15 VERY LITTLE GFR LEFT ESRD GFR <15 ON RECORDS MANAGEMENT DIRECTOR 9 ASSAY INFORMATION: Real Time RT-PCR NOTE: The COVID-19 assay has been cleared by the U.S. Food and Drug Administration under the Emergency Use Authorization (EUA). [employer] and [employer] are designated as high complexity laboratories by the Clinical Laboratory Improvement Amendments of 1988(CLIA) and are qualified to perform this test. Not Detected Procedures Date Code Description Status 09/03/2020 49355 Aparicio Cre SRV W/I 7 Days Of DC, C omm W/I 2 Dys Med Rec Completed 07/16/2020 11262 Office/Outpatient Established Mo d MDM 30-39 Min Completed 05/09/2018 [id number] Diabetic Retinal Eye Exam Comple symone 04/18/2018 258669000 Diabetic Retinal Eye Exam Comple symone 10/26/2017 [id number] Colonoscopy Completed 04/13/2016 [id number] Diabetic Retinal Eye Exam Comple symone 03/25/2016 [id number] Diabetic Retinal Eye Exam Comple symone 03/19/2016 631277802 Diabetic Retinal Eye Exam Comple symone Medical Devices Description No Information Available Encounters Type Date Location Provider Dx Diagnosis Office Visit 09/03/2020 10:20a [facility] Darryl Valles JR, PA K31.811 Angiodysplasia of stomach [...] E03.9 Hypothyroidism, unspecified Office Visit 07/16/2020 1:00p [facility] Hector Barrow MD J44.9 Chronic obstructive pulmonary disease, [...] 09/03/2020 I25.10 Atherosclerotic hear t disease of [place] coronary artery without angina pectoris ELMO Felix [...] 09/03/2020 K74.69 Other cirrhosis of liver ELMO Felxi JR 09/03/2020 E11.42 Type 2 diabetes mellitus [...] 07/16/2020 I25.10 Atherosclerotic hear t disease of [place] coronary artery without angina pectoris Hector Barrow [...] 2:00 pm - Hector Barrow MD at [facility] 07/16/2020 - Hector Barrow MD* J44.9 Chronic obstructive pulmonary disease, unspecified * J96.11 Chronic respiratory failure with hypoxia * Z99.81 Dependence on supplemental oxygen * I35.0 Nonrheumatic aortic (valve) stenosis * I25.10 Atherosclerotic heart disease of [place] coronary artery without angina pectoris * K92.2 [...]
--- OUTSIDE RECORDS SUMMARY | 2020-12-11 12:46 | CCD | Continuity of Care Document ---
Author Author Lab Marielena Mccray Organization Unknown Address [address] [address] Phone Unavailable Care Team Providers Care Transportation Maintenance Worker Name Role Phone KarEbony AUTM [phone] Austin Rashid MD AUTM [phone] Sarahi Rojas MD AUTM [phone] Hector Barrow JR, MD AUTM Unavailable ClairKeo rosenthalsonido AUTM [phone] Problems Active Problems Provider Date Type 2 [...] Vaccine Lot # U-Flu Given 11/16/2019 Influenza,Unspecified 57887 Given 11/16/2019 Shingrix Zoster Vaccine (HZV), Recombinant, Subunit, Adjuvanted 74019 Given 01/19/2017 Influenza Vaccin e Quadrivalent Preser/Antibiotic Free Im Use [id number] 01859 Given 07/17/2016 Pneumovax 23 [id number] 16888 Given 12/19/2015 Prevnar 13 Q2037 Given 12/02/2015 Fluvirin Virus Vaccine 30854 01 Vital Signs Date Vital Result Comment [...] H/L Range Note Complete Blood Count 09/03/2020 [facility] Ware Server: [place] [address] [phone] WBC 3.7 x10*3/UL Low 4.1 - 10.9 [...] 2.0 - 7.8 Basic Metabolic Panel 09/03/2020 [facility] Ware Server: Dr Hector Barrow [place] 2265146 [phone] Glucose 148 mg/dL High 74 - 99 [...] >60 3 Total Iron Binding Capacit 07/16/2020 [facility] [address] [place], [place] [address] [phone] Iron (Fe) 64 g/dL Normal 50-170 Total Iron Binding Capacity 367 g/dL Normal 250-450 Percent Saturation 17.4 % Normal 13.2-45.0 Prothrombin Time/Inr 07/16/2020 [facility] [address] [place] [address] [phone] Prothrombin Time 16.9 seconds High 12.5-14.3 Inr 1.34 Normal 4 Laboratory test finding 07/16/2020 [facility] [address] [place] [address] [phone] Ammonia 64 uMOL/L High <32 Complete Blood Count 07/16/2020 [facility] Ware Server: [place] [address] [phone] WBC 4.0 x10*3/UL Low 4.1 - 10.9 [...] 2.7 x10*3/UL 2.0 - 7.8 A1c 07/16/2020 [facility] , Ware Server: Dr Hector Barrow [place], [place] [address]93 [phone] Hba1c 5.5 % <5.7 6 Est Avg Glucose 111 mg/dL High 60 - 110 Comprehensive Chem Profile 07/16/2020 [facility] Ware Server: Dr Hector [place]arrow [place], [place] [address] [phone] Glucose 121 mg/dL High 74 - 99 [...] 60 mL/min >60 8 Lipid Profile 07/16/2020 [facility] , Ware Server: [place] [address] [phone] Cholesterol 97 mg/dL Low 131 - 200 Triglycerides 47 mg/dL 30 - 150 HDL Cholesterol 70 mg/dL High 35 - 60 LDL (Calculated) INVALID CALC 50 - 159 Laboratory test finding 07/16/2020 [facility] [employer] Ware Server: [place] [address] [phone] Thyroid Stimulating Hormone 0.04 uIU/mL Low 0.3 6 - 3.74 Coronavirus 2019 Nasopharygeal 06/09/2020 [facility] [address] [place] [address] [phone] Coronavirus 2019 Nasopharygeal ASSAY INFORMATIO <SEE N [...] LITTLE GFR LEFT ESRD GFR <15 ON OPHTHALMOLOGIST RETINA SPECIALIST 4 THERAPUTIC HUMAN INR VALUES INDICATIONS NORMAL [...] LITTLE GFR LEFT ESRD GFR <15 ON OPHTHALMOLOGIST RETINA SPECIALIST 9 ASSAY INFORMATION: Real Time RT-PCR NOTE: The COVID-19 assay has been cleared by the U.S. Food and Drug Administration under the Emergency Use Authorization (EUA). [employer] and [employer] are designated as high complexity laboratories by the Clinical Laboratory Improvement Amendments of 1988(CLIA) and are qualified to perform this test. Not Detected Procedures Date Code Description Status 09/03/2020 75516 Aparicio Cre SRV W/I 7 Days Of DC, C omm W/I 2 Dys Med Rec Completed 07/16/2020 82597 Office/Outpatient Established Mo d MDM 30-39 Min Completed 05/09/2018 [id number] Diabetic Retinal Eye Exam Comple symone 04/18/2018 [id number] Diabetic Retinal Eye Exam Comple symone 10/26/2017 [id number] Colonoscopy Completed 04/13/2016 177910422 Diabetic Retinal Eye Exam Comple symone 03/25/2016 [id number] Diabetic Retinal Eye Exam Comple symone 03/19/2016 867459590 Diabetic Retinal Eye Exam Comple symone Medical Devices Description No Information Available Encounters Type Date Location Provider Dx Diagnosis Office Visit 09/03/2020 10:20a [facility]CE[facility] Valles JR PA K31.811 Angiodysplasia of stomach an d [...] E03.9 Hypothyroidism, unspecified Office Visit 07/16/2020 1:00p [facility]CE[facility]her Barrow MD J44.9 Chronic obstructive [...] 09/03/2020 I25.10 Atherosclerotic hear t disease of [place] coronary artery without angina pectoris ELMO Felix [...] 07/16/2020 I25.10 Atherosclerotic hear t disease of [place] coronary artery without angina pectoris Hector Barrow [...] 2:00 pm - Hector Barrow MD at [facility] 07/16/2020 - Hector Barrow MD* J44.9 Chronic obstructive pulmonary disease, unspecified * J96.11 Chronic respiratory failure with hypoxia * Z99.81 Dependence on supplemental oxygen * I35.0 Nonrheumatic aortic (valve) stenosis * I25.10 Atherosclerotic heart disease of [place] coronary artery without angina pectoris * K92.2 [...]
--- OUTSIDE RECORDS SUMMARY | 2020-12-11 12:46 | CCD | Continuity of Care Document ---
Author Author Marielena Barrow MD Organization Unknown Address [address] [address] Phone [phone] Care Team Providers Care Clinic Mgr Name Role Phone Ebony Lakhani AUTM [phone] Austin Rashid MD AUTM [phone] Sarahi Rojas MD AUTM [phone] Hector Barrow JR, MD AUTM Unavailable Monica Carpenter AUTM [phone] Problems Active Problems Provider Date Type 2 [...] Potassium Chloride ER 10Meq Tablet s ER take one tablet by mouth every day 90tabs Hector mason MD 10/03/2019 Pantoprazole Sodium 40mg Tablets D R [...] Barbara Delgadillo DO Metoprolol Tartrate 25mg Tablets 1/2 tab twice a day 60tabs Hector Barrow MD Lisinopril 2.5mg Tablets 1 by mouth every [...] Vaccine Lot # U-Flu Given 11/16/2019 Influenza,Unspecified 93625 Given 11/16/2019 Shingrix Zoster Vaccine (HZV), Recombinant, Subunit, Adjuvanted 80653 Given 01/19/2017 Influenza Vaccin e Quadrivalent Preser/Antibiotic Free Im Use [id number] Given 07/17/2016 Pneumovax 23 [id number] Given 12/19/2015 Prevnar 13 [id number] Given 12/02/2015 Fluvirin Virus Vaccine [id number] 01 Vital Signs Date Vital Result Comment [...] H/L Range Note Complete Blood Count 09/03/2020 [facility]: Dr Hector Barrow [place] [id number] [phone] WBC 3.7 x10*3/UL Low 4.1 - 10.9 [...] 2.0 - 7.8 Basic Metabolic Panel 09/03/2020 [facility]: [place] [address] [phone] Glucose 148 mg/dL High 74 - 99 [...] >60 3 Total Iron Binding Capacit 07/16/2020 [facility] [address] [place] [address] [phone] Iron (Fe) 64 g/dL Normal 50-170 Total Iron Binding Capacity 367 g/dL Normal 250-450 Percent Saturation 17.4 % Normal 13.2-45.0 Prothrombin Time/Inr 07/16/2020 [facility] enter [address] [place] [phone] Prothrombin Time 16.9 seconds High 12.5-14.3 Inr 1.34 Normal 4 Laboratory test finding 07/16/[address] [address] [phone] Ammonia 64 uMOL/L High <32 Complete Blood Count 07/16/2020 [facility]: [place] [address] [phone] WBC 4.0 x10*3/UL Low 4.1 - 10.9 [...] 2.7 x10*3/UL 2.0 - 7.8 A1c 07/16/2020 [facility]: Dr Hector Barrow [place], [place] [id number] [phone] Hba1c 5.5 % <5.7 6 Est Avg Glucose 111 mg/dL High 60 - 110 Comprehensive Chem Profile 07/16/2020 [facility]: Dr Hector Bryantlogg [place], [place] [id number] [phone] Glucose 121 mg/dL High 74 - 99 [...] 60 mL/min >60 8 Lipid Profile 07/16/2020 [facility] Cop[facility]: Dr Hector Barrow [place], [place] [id number] [phone] Cholesterol 97 mg/dL Low 131 - 200 Triglycerides 47 mg/dL 30 - 150 HDL Cholesterol 70 mg/dL High 35 - 60 LDL (Calculated) INVALID CALC 50 - 159 Laboratory test finding 07/16/2020 [facility]: [place] [address] [phone] Thyroid Stimulating Hormone 0.04 uIU/mL Low 0.3 6 - 3.74 Coronavirus 2019 Nasopharygeal 06/09/2020 [facility] [address] [place], [place] [id number] [phone] Coronavirus 2019 Nasopharygeal ASSAY INFORMATIO <SEE N [...] LITTLE GFR LEFT ESRD GFR <15 ON PSYCHOLOGICAL STRESS EVALUATOR 4 THERAPUTIC HUMAN INR VALUES INDICATIONS NORMAL [...] LITTLE GFR LEFT ESRD GFR <15 ON PSYCHOLOGICAL STRESS EVALUATOR 9 ASSAY INFORMATION: Real Time RT-PCR NOTE: The COVID-19 assay has been cleared by the U.S. Food and Drug Administration under the Emergency Use Authorization (EUA). [facility] and [employer] are designated as high complexity laboratories by the Clinical Laboratory Improvement Amendments of 1988(CLIA) and are qualified to perform this test. Not Detected Procedures Date Code Description Status 09/03/2020 68347 Aparicio Cre SRV W/I 7 Days Of DC, C omm W/I 2 Dys Med Rec Completed 07/16/2020 63955 Office/Outpatient Established Mo d MDM 30-39 Min Completed 05/09/2018 750953868 Diabetic Retinal Eye Exam Comple symone 04/18/2018 [id number] Diabetic Retinal Eye Exam Comple symone 10/26/2017 [id number] Colonoscopy Completed 04/13/2016 [id number] Diabetic Retinal Eye Exam Comple symone 03/25/2016 254125613 Diabetic Retinal Eye Exam Comple symone 03/19/2016 458168533 Diabetic Retinal Eye Exam Comple symone Medical Devices Description No Information Available Encounters Type Date Location Provider Dx Diagnosis Office Visit 09/03/2020 10:20a [facility] Darryl Valles JR, PA K31.811 [...] E03.9 Hypothyroidism, unspecified Office Visit 07/16/2020 1:00p [facility] Hector Barrow MD J44.9 Chronic [...] to excess calories Z68.41 Body mass index [BMI]40.0-44 .9, adult Assessments Date Code Description Provider 09/03/2020 K31.811 Angiodysplasia of stomach and du odenum with bleeding ELMO Felix JR 09/03/2020 I25.10 Atherosclerotic hear t disease of [place] coronary artery without angina pectoris ELMO Felix [...] 07/16/2020 I25.10 Atherosclerotic hear t disease of [place] coronary artery without angina pectoris Hector Barrow [...] 2:00 pm - [facility] 07/16/2020 - Hector Barrow MD* J44.9 Chronic obstructive pulmonary disease, unspecified * J96.11 Chronic respiratory failure with hypoxia * Z99.81 Dependence on supplemental oxygen * I35.0 Nonrheumatic aortic (valve) stenosis * I25.10 Atherosclerotic heart disease of [place] coronary artery without angina pectoris * K92.2 [...]
--- OUTSIDE RECORDS SUMMARY | 2020-12-11 12:46 | CCD | Continuity of Care Document ---
Author Author Marielena Barrow MD Organization Unknown Address [address] [address] Phone [phone] Care Team Providers Care Restaurant Maintenance Technician Name Role Phone Ebony Lakhani AUTM [phone] Austin Rashid MD AUTM [phone] Sarahi Rojas MD AUTM [phone] Hector Barrow JR, MD AUTM Unavailable Monica Carpenter AUTM [phone] Problems Active Problems Provider Date Type 2 [...] Vaccine Lot # U-Flu Given 11/16/2019 Influenza,Unspecified 81404 Given 11/16/2019 Shingrix Zoster Vaccine (HZV), Recombinant, Subunit, Adjuvanted 63056 Given 01/19/2017 Influenza Vaccin e Quadrivalent Preser/Antibiotic Free Im Use [id number] 02858 Given 07/17/2016 Pneumovax 23 [id number] 81992 Given 12/19/2015 Prevnar 13 [id number] Given 12/02/2015 Fluvirin Virus Vaccine 45092 01 Vital Signs Date Vital Result Comment [...] H/L Range Note Complete Blood Count 09/03/2020 [facility] [place] Tower Loader: Dr Hector Barrow [place] [id number] [phone] WBC 3.7 x10*3/UL Low 4.1 - 10.9 [...] 2.0 - 7.8 Basic Metabolic Panel 09/03/2020 [facility] [place] [facility] Loader: [place] [address] [phone] Glucose 148 mg/dL High 74 - 99 [...] >60 3 Total Iron Binding Capacit 07/16/2020 [facility] [address] [place] [address] [phone] Iron (Fe) 64 g/dL Normal 50-170 Total Iron Binding Capacity 367 g/dL Normal 250-450 Percent Saturation 17.4 % Normal 13.2-45.0 Prothrombin Time/Inr 07/16/2020 [facility] enter [address] [place] [address] [phone] Prothrombin Time 16.9 seconds High 12.5-14.3 Inr 1.34 Normal 4 Laboratory test finding 07/16/[address] [address] [phone] Ammonia 64 uMOL/L High <32 Complete Blood Count 07/16/2020 [facility] [place] Tower Loader: [place] [address] [phone] WBC 4.0 x10*3/UL Low 4.1 - 10.9 [...] 2.7 x10*3/UL 2.0 - 7.8 A1c 07/16/2020 [facility] [place] Tower Loader: Dr Hector Barrow [place], [place] [id number] [phone] Hba1c 5.5 % <5.7 6 Est Avg Glucose 111 mg/dL High 60 - 110 Comprehensive Chem Profile 07/16/2020 [facility] [place] Tower Loader: Dr Hector Bryantlogg [place], [place] [id number] [phone] Glucose 121 mg/dL High 74 - 99 [...] 60 mL/min >60 8 Lipid Profile 07/16/2020 [facility] [place] Tower Loader: Dr Hector Barrow [place], [place] [address] [phone] Cholesterol 97 mg/dL Low 131 - 200 Triglycerides 47 mg/dL 30 - 150 HDL Cholesterol 70 mg/dL High 35 - 60 LDL (Calculated) INVALID CALC 50 - 159 Laboratory test finding 07/16/2020 [facility] [place] Tower Loader: [place] [address] [phone] Thyroid Stimulating Hormone 0.04 uIU/mL Low 0.3 6 - 3.74 Coronavirus 2019 Nasopharygeal 06/09/2020 [facility] [address] [place], [place] [address] [phone] Coronavirus 2019 Nasopharygeal ASSAY INFORMATIO <SEE N [...] LITTLE GFR LEFT ESRD GFR <15 ON VISCOSITY TESTER 4 THERAPUTIC HUMAN INR VALUES INDICATIONS NORMAL [...] LITTLE GFR LEFT ESRD GFR <15 ON VISCOSITY TESTER 9 ASSAY INFORMATION: Real Time RT-PCR NOTE: The COVID-19 assay has been cleared by the U.S. Food and Drug Administration under the Emergency Use Authorization (EUA). [employer] and [employer] are designated as high complexity laboratories by the Clinical Laboratory Improvement Amendments of 1988(CLIA) and are qualified to perform this test. Not Detected Procedures Date Code Description Status 09/03/2020 36280 Aparicio Cre SRV W/I 7 Days Of DC, C omm W/I 2 Dys Med Rec Completed 07/16/2020 88933 Office/Outpatient Established Mo d MDM 30-39 Min Completed 05/09/2018 [id number] Diabetic Retinal Eye Exam Comple symone 04/18/2018 582260154 Diabetic Retinal Eye Exam Comple symone 10/26/2017 72783539 Colonoscopy Completed 04/13/2016 763300335 Diabetic Retinal Eye Exam Comple symone 03/25/2016 423321722 Diabetic Retinal Eye Exam Comple symone 03/19/2016 [id number] Diabetic Retinal Eye Exam Comple symone Medical Devices Description No Information Available Encounters Type Date Location Provider Dx Diagnosis Office Visit 09/03/2020 10:20a [facility] Darryl Valles JR, PA K31.811 [...] E03.9 Hypothyroidism, unspecified Office Visit 07/16/2020 1:00p [facility] Hector Barrow MD J44.9 Chronic [...] 09/03/2020 I25.10 Atherosclerotic hear t disease of [place] coronary artery without angina pectoris ELMO Felix [...] 07/16/2020 I25.10 Atherosclerotic hear t disease of [place] coronary artery without angina pectoris Hector Barrow [...] 2:00 pm - [facility] 07/16/2020 - Hector Barrow MD* J44.9 Chronic obstructive pulmonary disease, unspecified * J96.11 Chronic respiratory failure with hypoxia * Z99.81 Dependence on supplemental oxygen * I35.0 Nonrheumatic aortic (valve) stenosis * I25.10 Atherosclerotic heart disease of [place] coronary artery without angina pectoris * K92.2 [...]
--- OUTSIDE RECORDS SUMMARY | 2020-12-11 12:47 | CCD ---
Author Author [facility] Organization [facility] Address Unknown Phone Unavailable Care Team Providers Care Technology Services Manager Name Role Phone Dhruv Rico MD Unavailable Unavailable Dhruv Rico MD Unavailable Unavailable Dhruv Rico MD Unavailable Unavailable Dhruv Rico MD Unavailable Unavailable Dhruv Rico MD Unavailable Unavailable Dhruv Rico MD Unavailable Unavailable Dhruv Rico MD Unavailable Unavailable Dhruv Rico MD Unavailable Unavailable Dhruv Rico MD Unavailable Unavailable Dhruv Rico MD Unavailable Unavailable Dhruv Rico MD Unavailable Unavailable Dhruv Rico MD Unavailable Unavailable Dhruv Rico MD Unavailable Unavailable Dhruv Rico MD Unavailable Unavailable Dhruv Rico MD Unavailable Unavailable Dhruv Rico MD Unavailable Unavailable Dhruv Rico MD Unavailable Unavailable Dhruv Rico MD Unavailable Unavailable Dhruv Rico MD Unavailable Unavailable Dhruv Rico MD Unavailable Unavailable Dhruv Rico MD Unavailable Unavailable Dhruv Rico MD Unavailable Unavailable Dhruv Rico MD Unavailable Unavailable Dhruv Rico MD Unavailable Unavailable Dhruv Rico MD Unavailable Unavailable Dhruv Rico MD Unavailable Unavailable Dhruv Rico MD Unavailable Unavailable Dhruv Rico MD Unavailable Unavailable Dhruv Rico MD Unavailable Unavailable Dhruv Rico MD Unavailable Unavailable Dhruv Rico MD Unavailable Unavailable Dhruv Rico MD Unavailable Unavailable Dhruv Rico MD Unavailable Unavailable Dhruv Rico MD Unavailable Unavailable Dhruv Rico MD Unavailable Unavailable Dhruv Rico MD Unavailable Unavailable Dhruv Rico MD Unavailable Unavailable Dhruv Rico MD Unavailable Unavailable Dhruv Rico MD Unavailable Unavailable Dhruv Rico MD Unavailable Unavailable Dhruv Rico MD Unavailable Unavailable Dhruv Rico MD Unavailable Unavailable Dhruv Rico MD Unavailable Unavailable Dhruv Rico MD Unavailable Unavailable Dhruv Rico MD Unavailable Unavailable Dhruv Rico MD Unavailable Unavailable Dhruv Rico MD Unavailable Unavailable Dhruv Rico MD Unavailable Unavailable Dhruv Rico MD Unavailable Unavailable Dhruv Rico MD Unavailable Unavailable Glenroy Barrow MD Unavailable Unavailable Glenroy Barrow MD Unavailable Unavailable Glenroy Barrow MD Unavailable Unavailable Glenroy Barrow MD Unavailable Unavailable Glenroy Barrow MD Unavailable Unavailable Glenroy Barrow MD Unavailable Unavailable Glenroy Barrow MD Unavailable Unavailable Glenroy Barrow MD Unavailable Unavailable Glenroy Barrow MD Unavailable Unavailable Glenroy Barrow MD Unavailable Unavailable Glenroy Barrow MD Unavailable Unavailable Glenroy Barrow MD Unavailable Unavailable Glenroy Barrow MD Unavailable Unavailable Glenroy Barrow MD Unavailable Unavailable Glenroy Barrow MD Unavailable Unavailable Glenroy Barrow MD Unavailable Unavailable Glenroy Barrow MD Unavailable Unavailable Glenroy Barrow MD Unavailable Unavailable Glenroy Barrow MD Unavailable Unavailable Glenroy Barrow MD Unavailable Unavailable Glenroy Barrow MD Unavailable Unavailable Glenroy Barrow MD Unavailable Unavailable Glenroy Barrow MD Unavailable Unavailable Glenroy Barrow MD Unavailable Unavailable Glenroy Barrow MD Unavailable Unavailable CentertownGlenroy hooper MD Unavailable Unavailable PushpaGlenroy hooper MD Unavailable Unavailable CentertownGlenroy MD Unavailable Unavailable PushpaGlenroy MD Unavailable Unavailable CentertownGlenroy MD Unavailable Unavailable CentertownGlenroy MD Unavailable Unavailable PushpaGlenroy MD Unavailable Unavailable PushpaGlenroy MD Unavailable Unavailable CentertownGlenroy MD Unavailable Unavailable PushpaGlenroy MD Unavailable Unavailable PushpaGlenroy MD Unavailable Unavailable CentertownGlenroy MD Unavailable Unavailable CentertownGlenroy MD Unavailable Unavailable PushpaGlenroy MD Unavailable Unavailable PushpaGlenroy MD Unavailable Unavailable PushpaGlenroy MD Unavailable Unavailable CentertownGlenroy MD Unavailable Unavailable PushpaGlenroy MD Unavailable Unavailable CentertownGlenroy MD Unavailable Unavailable PushpaGlenroy MD Unavailable Unavailable CentertownGlenroy MD Unavailable Unavailable PushpaGlenroy MD Unavailable Unavailable PushpaGlenroy MD Unavailable Unavailable PushpaGlenroy MD Unavailable Unavailable PushpaGlenroy MD Unavailable Unavailable CentertownGlenroy MD Unavailable Unavailable PushpaGlenroy MD Unavailable Unavailable CentertownGlenroy MD Unavailable Unavailable PushpaGlenroy MD Unavailable Unavailable PushpaGlenroy MD Unavailable Unavailable CentertownGlenroy MD Unavailable Unavailable CentertownGlenroy MD Unavailable Unavailable PushpaGlenroy MD Unavailable Unavailable PushpaGlenroy MD Unavailable Unavailable CentertownGlenroy MD Unavailable Unavailable CentertownGlenroy MD Unavailable Unavailable PushpaGlenroy MD Unavailable Unavailable PushpaGlenroy MD Unavailable Unavailable CentertownGlenroy MD Unavailable Unavailable PushpaGlenroy MD Unavailable Unavailable PushpaGlenroy MD Unavailable Unavailable PushpaGlenroy MD Unavailable Unavailable PushpaGlenroy MD Unavailable Unavailable PushpaGlenroy MD Unavailable Unavailable PushpaGlenroy MD Unavailable Unavailable PushpaGlenroy MD Unavailable Unavailable PushpaGlenroy MD Unavailable Unavailable PushpaGlenroy MD Unavailable Unavailable PushpaGlenroy MD Unavailable Unavailable CentertownGlenroy MD Unavailable Unavailable PushpaGlenroy MD Unavailable Unavailable PushpaGlenroy MD Unavailable Unavailable CentertownGlenroy MD Unavailable Unavailable CentertownGlenroy MD Unavailable Unavailable CentertownGlenroy MD Unavailable Unavailable CentertownGlenroy MD Unavailable Unavailable PushpaGlenroy MD Unavailable Unavailable CentertownGlenroy MD Unavailable Unavailable Pushpa, F Young MD Unavailable Unavailable Glenroy Barrow MD Unavailable Unavailable Glenroy Barrow MD Unavailable Unavailable Tin, Allie Ashwin (Roman) MD Unavailable Unavailable Tin, Allie Ashwin (Roman) MD Unavailable Unavailable Tin, Allie Ashwin (Roman) MD Unavailable Unavailable Tin, Allie Ashwin (Roman) MD Unavailable Unavailable Tin, Allie Ashwin (Roman) MD Unavailable Unavailable Tin, Allie Ashwin (Roman) MD Unavailable Unavailable Tin, Allie Ashwin (Roman) MD Unavailable Unavailable Tin, Allie Ashwin (Roman) MD Unavailable Unavailable Tin, Allie Ashwin (Roman) MD Unavailable Unavailable Tin, Allie Ashwin (Roman) MD Unavailable Unavailable Tin, Allie Ashwin (Roman) MD Unavailable Unavailable Tin, Allie Ashwin (Roman) MD Unavailable Unavailable Tin, Allie Ashwin (Roman) MD Unavailable Unavailable Tin, Allie Ashwin (Roman) MD Unavailable Unavailable Tin, Allie Ashwin (Roman) MD Unavailable Unavailable Tin, Allie Ashwin (Roman) MD Unavailable Unavailable Tin, Allie Ashwin (Roman) MD Unavailable Unavailable Tin, Allie Ashwin (Roman) MD Unavailable Unavailable Tin, Allie Ashwin (Roman) MD Unavailable Unavailable Tin, Allie Ashwin (Roman) MD Unavailable Unavailable Tin, Allie Ashwin (Roman) MD Unavailable Unavailable Tin, Lalie Ashwin (Roman) MD Unavailable Unavailable Tin, Allie Ashwin (Roman) MD Unavailable Unavailable Tin, Allie Ashwin (Roman) MD Unavailable Unavailable Tin, Allie Ashwin (Roman) MD Unavailable Unavailable Tin, Allie Ashwin (Roman) MD Unavailable Unavailable Tin, Allie Ashwin (Roman) MD Unavailable Unavailable Tin, Allie Ashwin (Roman) MD Unavailable Unavailable Tin, Allie Ashwin (Roman) MD Unavailable Unavailable Tin, Allie Ashwin (Roman) MD Unavailable Unavailable Tin, Allie Ashwin (Roman) MD Unavailable Unavailable Tin, Allie Ashwin (Roman) MD Unavailable Unavailable Tin, Allie Ashwin (Roman) MD Unavailable Unavailable Tin, Allie Ashwin (Roman) MD Unavailable Unavailable Tin, Allie Ashwin (Roman) MD Unavailable Unavailable Tin, Allie Ashwin (Roman) MD Unavailable Unavailable Tin, Allie Ashwin (Roman) MD Unavailable Unavailable Tin, Allie Ashwin (Roman) MD Unavailable Unavailable Tin, Allie Ashwin (Roman) MD Unavailable Unavailable Tin, Allie Ashwin (Roman) MD Unavailable Unavailable Tin Allie Ashwin (Roman) MD Unavailable Unavailable Tin Allie Ashwin (Roman) MD Unavailable Unavailable Tin Allie Ashwin (Roman) MD Unavailable Unavailable Tin Allie Ashwin (Roman) MD Unavailable Unavailable Tin Allie Ashwin (Roman) MD Unavailable Unavailable Tin Allie Ashwin (Roman) MD Unavailable Unavailable Tin Allie Ashwin (Roman) MD Unavailable Unavailable Tin Allie Ashwin (Roman) MD Unavailable Unavailable Tin Allie Ashwin (Roman) MD Unavailable Unavailable Tin Allie Ashwin (Roman) MD Unavailable Unavailable Tin Allie Ashwin (Roman) MD Unavailable Unavailable Tin Allie Ashwin (Roman) MD Unavailable Unavailable Tin Allie Ashwin (Roman) MD Unavailable Unavailable Tin Allie Ashwin (Roman) MD Unavailable Unavailable Tin Allie Ashwin (Roman) MD Unavailable Unavailable Tin Allie Ashwin (Roman) MD Unavailable Unavailable Tin Allie Ashwin (Roman) MD Unavailable Unavailable Tin Allie Ashwin (Roman) MD Unavailable Unavailable Tin, Allie Ashwin Unavailable Unavailable PICKERAL JR, J ALLAN PA-C Unavailable Unavailable PICKERAL JR, J ALLAN PA-C Unavailable Unavailable PICKERAL JR, J ALLAN PA-C Unavailable Unavailable PICKERAL JR, J ALLAN PA-C Unavailable Unavailable PICKERAL JR, J ALLAN PA-C Unavailable Unavailable PICKERAL JR, J ALLAN PA-C Unavailable Unavailable PICKERAL JR, J ALLAN PA-C Unavailable Unavailable PICKERAL JR, J ALLAN PA-C Unavailable Unavailable PICKERAL JR, J ALLAN PA-C Unavailable Unavailable PICKERAL JR, J ALLAN PA-C Unavailable Unavailable PICKERAL JR, J ALLAN PA-C Unavailable Unavailable PICKERAL JR, J ALLAN PA-C Unavailable Unavailable PICKERAL JR, J ALLAN PA-C Unavailable Unavailable PICKERAL JR, J ALLAN PA-C Unavailable Unavailable PICKERAL JR, J ALLAN PA-C Unavailable Unavailable PICKERAL JR, J ALLAN PA-C Unavailable Unavailable PICKERAL JR, J ALLAN PA-C Unavailable Unavailable PICKERAL JR, J ALLAN PA-C Unavailable Unavailable PICKERAL JR, J ALLAN PA-C Unavailable Unavailable PICKERAL JR, J ALLAN PA-C Unavailable Unavailable PICKERAL JR, J ALLAN PA-C Unavailable Unavailable PICKERAL JR, J ALLAN PA-C Unavailable Unavailable PICKERAL JR, J ALLAN PA-C Unavailable Unavailable PICKERAL JR, J ALLAN PA-C Unavailable Unavailable PICKERAL JR, J ALLAN PA-C Unavailable Unavailable PICKERAL JR, J ALLAN PA-C Unavailable Unavailable PICKERAL JR, Rakel LEMUS PA-C Unavailable Unavailable El-Khally, A Ziad MD Unavailable Unavailable El-Khally, A Ziad MD Unavailable Unavailable El-Khally, A Ziad MD Unavailable Unavailable El-Khally, A Ziad MD Unavailable Unavailable El-Khally, A Ziad MD Unavailable Unavailable El-Khally, A Ziad MD Unavailable Unavailable El-Khally, A Ziad MD Unavailable Unavailable El-Khally, A Ziad MD Unavailable Unavailable El-Khally, A Ziad MD Unavailable Unavailable El-Khally, A Ziad MD Unavailable Unavailable El-Khally, A Ziad MD Unavailable Unavailable El-Khally, A Ziad MD Unavailable Unavailable El-Khally, A Ziad MD Unavailable Unavailable El-Khally, A Ziad MD Unavailable Unavailable El-Khally, A Ziad MD Unavailable Unavailable El-Khally, A Ziad MD Unavailable Unavailable El-Khally, A Ziad MD Unavailable Unavailable El-Khally, A Ziad MD Unavailable Unavailable El-Khally, A Ziad MD Unavailable Unavailable El-Khally, A Ziad MD Unavailable Unavailable El-Khally, A Ziad MD Unavailable Unavailable El-Khally, A Ziad MD Unavailable Unavailable El-Khally, A Ziad MD Unavailable Unavailable El-Khally, A Ziad MD Unavailable Unavailable El-Khally, A Ziad MD Unavailable Unavailable El-Khally, A Ziad MD Unavailable Unavailable El-Khally, A Ziad MD Unavailable Unavailable El-Khally, A Ziad MD Unavailable Unavailable El-Khally, A Ziad MD Unavailable Unavailable El-Khally, A Ziad MD Unavailable Unavailable El-Khally, A Ziad MD Unavailable Unavailable El-Khally, A Ziad MD Unavailable Unavailable El-Khally, A Ziad MD Unavailable Unavailable El-Khally, A Ziad MD Unavailable Unavailable El-Khally, A Ziad MD Unavailable Unavailable El-Khally, A Ziad MD Unavailable Unavailable El-Khally, A Ziad MD Unavailable Unavailable El-Khally, A Ziad MD Unavailable Unavailable El-Khally, A Ziad MD Unavailable Unavailable El-Khally, A Ziad MD Unavailable Unavailable El-Khally, A Ziad MD Unavailable Unavailable El-Khally, A Ziad MD Unavailable Unavailable El-Khally, A Ziad MD Unavailable Unavailable PushpaGlenroy MD Unavailable Unavailable CentertownGlenroy MD Unavailable Unavailable CentertownGlenroy MD Unavailable Unavailable CentertownGlenroy MD Unavailable Unavailable CentertownGlenroy MD Unavailable Unavailable PushpaGlenroy MD Unavailable Unavailable PushpaGlenroy MD Unavailable Unavailable PushpaGlenroy MD Unavailable Unavailable CentertownGlenroy MD Unavailable Unavailable CentertownGlenroy MD Unavailable Unavailable CentertownGlenroy MD Unavailable Unavailable CentertownGlenroy MD Unavailable Unavailable CentertownGlenroy MD Unavailable Unavailable CentertownGlenroy MD Unavailable Unavailable CentertownGlenroy MD Unavailable Unavailable CentertownGlenroy MD Unavailable Unavailable PushpaGlenroy MD Unavailable Unavailable CentertownGlenroy MD Unavailable Unavailable CentertownGlenroy MD Unavailable Unavailable PushpaGlenroy MD Unavailable Unavailable PushpaGlenroy MD Unavailable Unavailable CentertownGlenroy MD Unavailable Unavailable PushpaGlenroy MD Unavailable Unavailable CentertownGlenroy MD Unavailable Unavailable PushpaGlenroy MD Unavailable Unavailable PushpaGlenroy MD Unavailable Unavailable CentertownGlenroy MD Unavailable Unavailable PushpaGlenroy MD Unavailable Unavailable CentertownGlenroy MD Unavailable Unavailable PushpaGlenroy MD Unavailable Unavailable CentertownGlenroy MD Unavailable Unavailable PushpaGlenroy MD Unavailable Unavailable PushpaGlenroy MD Unavailable Unavailable PushpaGlenroy MD Unavailable Unavailable PushpaGlenroy MD Unavailable Unavailable CentertownGlenroy hooper MD Unavailable Unavailable PushpaGlenroy MD Unavailable Unavailable PushpaGlenroy MD Unavailable Unavailable CentertownGlenroy MD Unavailable Unavailable PushpaGlenroy MD Unavailable Unavailable PushpaGlenroy MD Unavailable Unavailable CentertownGlenroy MD Unavailable Unavailable CentertownGlenroy MD Unavailable Unavailable CentertownGlenroy MD Unavailable Unavailable CentertownGlenroy MD Unavailable Unavailable PushpaGlenroy MD Unavailable Unavailable CentertownGlenroy MD Unavailable Unavailable CentertownGlenroy MD Unavailable Unavailable PushpaGlenroy MD Unavailable Unavailable CentertownGlenroy MD Unavailable Unavailable PushpaGlenroy MD Unavailable Unavailable CentertownGlenroy MD Unavailable Unavailable CentertownGlenroy MD Unavailable Unavailable PushpaGlenroy MD Unavailable Unavailable PushpaGlenroy MD Unavailable Unavailable CentertownGlenroy MD Unavailable Unavailable PushpaGlenroy hooper MD Unavailable Unavailable CentertownGlenroy MD Unavailable Unavailable CentertownGlenroy MD Unavailable Unavailable CentertownGlenroy MD Unavailable Unavailable PushpaGlenroy MD Unavailable Unavailable CentertownGlenroy MD Unavailable Unavailable PushpaGlenroy MD Unavailable Unavailable PushpaGlenroy MD Unavailable Unavailable CentertownGlenroy MD Unavailable Unavailable CentertownGlenroy MD Unavailable Unavailable PushpaGlenroy MD Unavailable Unavailable PushpaGlenroy MD Unavailable Unavailable CentertownGlenroy MD Unavailable Unavailable CentertownGlenroy MD Unavailable Unavailable CentertownGlenroy hooper MD Unavailable Unavailable PushpaGlenroy MD Unavailable Unavailable CentertownGlenroy hooper MD Unavailable Unavailable PushpaGlenroy hooper MD Unavailable Unavailable CentertownGlenroy hooper MD Unavailable Unavailable PushpaGlenroy hooper MD Unavailable Unavailable PushpaGlenroy hooper MD Unavailable Unavailable PushpaGlenroy hooper MD Unavailable Unavailable PushpaGlenroy hooper MD Unavailable Unavailable CentertownGlenroy hooper MD Unavailable Unavailable CentertownGlenroy hooper MD Unavailable Unavailable CentertownGlenroy hooper MD Unavailable Unavailable PushpaGlenroy hooper MD Unavailable Unavailable CentertownGlenroy hooper MD Unavailable Unavailable CentertownGlenroy hooper MD Unavailable Unavailable CentertownGlenroy hooper MD Unavailable Unavailable Monica Carpenter MD Unavailable Unavailable Monica Carpenter MD Unavailable Unavailable Monica Carpenter MD Unavailable Unavailable Monica Carpenter MD Unavailable Unavailable Monica Carpenter MD Unavailable Unavailable Monica Carpenter MD Unavailable Unavailable Monica Carpenter MD Unavailable Unavailable Monica Carpenter MD Unavailable Unavailable Monica Carpenter MD Unavailable Unavailable Keo Carpenterjtech Unavailable Unavailable Keo Carpenterjtech Unavailable Unavailable Keo Carpenterjtech Unavailable Unavailable Keo Carpenterjtech Unavailable Unavailable Monica Carpenter MD Unavailable Unavailable Keo Carpenterjtech Unavailable Unavailable Keo Carpenterjtech Unavailable Unavailable Keo Carpenterjtech Unavailable Unavailable Keo Carpenterjtech Unavailable Unavailable Keo Carpenterjtech Unavailable Unavailable Keo Carpenterjtech Unavailable Unavailable Keo Carpenterjtech Unavailable Unavailable Keo Carpenterjtech Unavailable Unavailable Keo Carpenterjtech Unavailable Unavailable Slezka, Vojtech Unavailable Unavailable Slezka, Vojtech MD Unavailable Unavailable Slezka, Vojtech MD Unavailable Unavailable Slezka, Vojtech MD Unavailable Unavailable Slezka, Vojtech MD Unavailable Unavailable Slezka, Vojtech MD Unavailable Unavailable Slezka, Vojtech MD Unavailable Unavailable Slezka, Vojtech MD Unavailable Unavailable Slezka, Vojtech MD Unavailable Unavailable Slezka, Vojtech MD Unavailable Unavailable Slezka, Vojtech MD Unavailable Unavailable Slezka, Vojtech MD Unavailable Unavailable Slezka, Vojtech MD Unavailable Unavailable Slezka, Vojtech MD Unavailable Unavailable Slezka, Vojtech MD Unavailable Unavailable Slezka, Vojtech MD Unavailable Unavailable Slezka, Vojtech MD Unavailable Unavailable Slezka, Vojtech MD Unavailable Unavailable Slezka, Vojtech MD Unavailable Unavailable Slezka, Vojtech MD Unavailable Unavailable Slezka, Vojtech MD Unavailable Unavailable Slezka, Vojtech MD Unavailable Unavailable Slezka, Vojtech MD Unavailable Unavailable Slezka, Vojtech MD Unavailable Unavailable Slezka, Vojtech MD Unavailable Unavailable Slezka, Vojtech MD Unavailable Unavailable Slezka, Vojtech MD Unavailable Unavailable Slezka, Vojtech MD Unavailable Unavailable Slezka, Vojtech MD Unavailable Unavailable Slezka, Vojtech MD Unavailable Unavailable Slezka, Vojtech MD Unavailable Unavailable Slezka, Vojtech MD Unavailable Unavailable Slezka, Vojtech MD Unavailable Unavailable Slezka, Vojtech MD Unavailable Unavailable Slezka, Vojtech MD Unavailable Unavailable Re-disclosure Warning The records that you are about to access may contain information from federally-assisted alcohol or drug abuse programs. If such information is present, then the following federally mandated warning applies: This information has been disclosed to you from records protected by federal confidentiality rules (42 CFR part 2). The federal rules prohibit you from making any further disclosure of this information unless further disclosure is expressly permitted by the written consent of the person to whom it pertains or as otherwise permitted by 42 CFR part 2. A general authorization for the release of medical or other information is NOT sufficient for this purpose. The Federal rules restrict any use of the information to criminally investigate or prosecute any alcohol or drug abuse patient.The records that you are about to access may contain highly sensitive health information, the redisclosure of which is protected by Article 27-F of the [facility] Public Health law. If you continue you may have access to information: Regarding HIV / AIDS; Provided by facilities licensed or operated by the [facility] Office of Mental Health; or Provided by the [facility] Office for People With Developmental Disabilities. If such information is present, then the following [facility] mandated warning applies: This information has been disclosed to you from confidential records which are protected by state law. State law prohibits you from making any further disclosure of this information without the specific written consent of the person to whom it pertains, or as otherwise permitted by law. Any unauthorized further disclosure in violation of state law may result in a fine or half-way sentence or both. A general authorization for the release of medical or other information is NOT sufficient authorization for further disc losure. Family History Family Member Name Family Member Gender Family Member Status Date o f Status Description Data Source(s) Unknown Male Condition [facility] Unknown Male Condition [facility] Unknown Unknown Problem [facility] ([facility] Unknown Unknown Problem [facility] ([facility]) Unknown Male Problem [facility] ([facility] ) () Unknown Male Problem [facility] ([facility]) Encounters Encounter Providers Location Date Indications Data Source(s ) Outpatient Attender: Nitin Rico MD Main Office 11/26/2020 02:00:00 PM EDT [facility] ([facility]) Outpatient Attender: Hector Oleary 0 11/15/2020 08:40:00 AM EDT [facility] ([facility] ) Outpatient Attender: ALLAN Oleary 0 09/03/2020 10:20:00 AM EDT [facility] ([facility] ) Outpatient Attender: Hector Oleary 0 07/16/2020 01:00:00 PM EDT [facility] ([facility] ) Outpatient Attender: Monica MOORE.[email or web address] 06/23 12:00:00 AM EDT - 07/15/2020 03:29:01 PM EDT [facility] Attender: Allie Christopher TinReferrer: Hector Barrow MD 07/04/2020 08:21:05 PM EDT [facility] Outpatient Attender: Paul More MDAdmitter: Paul chanel MD [email or web address] 06/14/2020 06:07:00 AM EDT - 06/14/2020 02:29:00 PM EDT [facility] Patient discharged. Outpatient Attender: Monica Carpenter MD [email or web address].ANURAG 05/23 01:33:06 PM EDT - 06/04/2020 02:34:25 PM EDT [facility] Outpatient Attender: Monica Carpenter MD [email or web address] 03/2020 12:00:00 AM EST - 04/23/2020 03:25:37 PM EST [facility] Outpatient Attender: Hector Hernandezewall 1 02:45:00 PM EDT [facility] ([facility] ) Outpatient Referrer: Monica [email or web address]-SJP.ANURAG 10/24 12:00:00 AM EDT - 11/13/2019 02:54:55 PM EDT [facility] Outpatient Attender: Monica Carpenter MDReferrer: Maty [email or web address]-SJP.ANURAG 11/13/2019 12:00:00 AM EDT - 11/13/2019 02:56:16 PM EDT [facility] Attender: Allie Christensen (Jack) MDReferrer: Jameson Barrow MD 10/20/2019 08:20:08 PM EDT [facility] Referrer: Hector Barrow MD 10/20/2019 08:20:0 8 PM EDT [facility] Immunizations Vaccine Date Status Description Data Source(s) Influenza, injectable, MDCK, preservative free, [facility] 11/29/2020 11:39:00 AM EDT completed [facility] ([facility]) COVID-19 VACCINE Moderna 05/30/2020 12:00:00 AM EDT completed [facility] Vaccine Series Complete: YESThis Data wa s Submitted to [facility] [employer]. COVID-19 VACCINE Moderna 05/02/2020 12:00:00 AM EST completed [facility] Vaccine Series Complete: NOThis Data was Submitted to [facility] [employer]. Shingrix Zoster Vaccine (HZV), Recombinant, Subunit, A djuvanted 11/16/2019 08:34:00 AM EDT completed [facility] ([facility]) This CVX code allows reporting of a vacc ination when formulation is unknown (for example, when recording a Influenza vaccination when noted on a vaccination card) 11/16/2019 08:34:00 AM EDT completed [facility] T ([facility]) VARICELLA-ZOSTER [id number] 11/16/2019 12:00:00 AM EDT completed [facility] FLU VACCINE QUADRIV (4 YEARS AND OLDER)CELL D ERIVED 11/16/2019 12:00:00 AM EDT completed [facility] Medications Medication Brand Name Start Date Product Form Dose Route Admi nistrative Instructions Pharmacy Instructions Status Indications Reaction Description Data Source(s) Administration Of Flu Vaccine 11/29/2020 12:00:00 AM EDT completed [facility] ([place] [facility]) Medication administered onsite 62.5 mcg/actuation 11/23/2020 12:00:00 AM EDT blister with d evice 30 INHALE ONE PUFF BY MOUTH EVERY DAY INHALE ONE PUFF BY MOUTH EVERY DAY SOLD: 11/27/2020 [facility] 325 mg (65 mg iron) 11/18/2020 12:00:00 AM EDT tablet, delayed release (DR/EC) 90 TAKE ONE TABLET BY MOUTH EVERY DAY TAKE ONE TABL ET BY MOUTH EVERY DAY SOLD: 11/19/2020 [facility] 25 mg 11/18/2020 12:00:00 AM EDT tablet 90 TAKE ONE TABLET BY MOUTH EVERY EVENING TAKE ONE TABLET BY MOUTH EVERY EVENING SOLD: 11/19/2020 [facility] 2.5 mg /3 mL (0.083 %) 11/18/2020 12:00:00 AM EDT solu tion for nebulization 375 1 VIAL VIA NEBULIZER FOUR TIMES A DAY NEEDED 1 VIAL VIA NEBULIZER FOUR TIMES A DAY NEEDED SOLD: 11/19/2020 [facility] 90 mcg/actuation 11/18/2020 12:00:00 AM EDT HFA aerosol inha ler 36 INHALE TWO PUFFS BY MOUTH FOUR TIMES A DAY NEEDED INHALE TWO PUFFS BY MOUTH FOUR TIMES A DAY NEEDED SOLD: 11/19/2020 [facility] ferrous sulfate 325 MG Oral Tablet Ferrousul 11/15/2020 12:00:00 AM EDT ORAL active [facility] 25 mg 11/06/2020 12:00:00 AM EDT tablet extended release 24 hr 90 TAKE ONE TABLET BY MOUTH EVERY DAY TAKE ONE TABLET BY MOUTH EVERY DAY SOLD: 11/14/2020 [facility] pantoprazole 40 MG Delayed Release Oral Tablet PANTOPRAZOLE SODIUM 10/17/2020 12:00:00 AM EDT tablet,delayed release (DR/EC) 180 T DEBORAH ONE TABLET BY MOUTH TWICE A DAY TAKE ONE TABLET BY MOUTH TWICE A DAY SOLD: 10/18/2020 [facility] 25 mg 10/01/2020 12:00:00 AM EDT tablet 60 TAKE 1/2 TABLET BY MOUTH TWO TIMES A DAY TAKE 1/2 TABLET BY MOUTH TWO TIMES A DAY SOLD: 11/27/2020 [facility] 25 mg 10/01/2020 12:00:00 AM EDT tablet 60 TAKE 1/2 TABLET BY MOUTH TWO TIMES A DAY TAKE 1/2 TABLET BY MOUTH TWO TIMES A DAY SOLD: 10/03/2020 [facility] Potassium Chloride 10 MEQ Extended Release Oral Tablet POTAS SIUM CHLORIDE 10/01/2020 12:00:00 AM EDT tablet extended release 90 TAKE ONE TABLET BY MOUTH ONCE DAILY TAKE ONE TABLET BY MOUTH ONCE DAILY SOLD: 10/03/2020 [facility] 550 mg 09/13/2020 12:00:00 AM EDT tablet 60 TAKE ONE TABLET BY MOUTH TWICE A DAY TAKE ONE TABLET BY MOUTH TWICE A DAY SOLD: 09/19/2020 [facility] 550 mg 09/13/2020 12:00:00 AM EDT tablet 60 TAKE ONE TABLET BY MOUTH TWICE A DAY TAKE ONE TABLET BY MOUTH TWICE A DAY SOLD: 10/16/2020 [facility] 550 mg 09/13/2020 12:00:00 AM EDT tablet 60 TAKE ONE TABLET BY MOUTH TWICE A DAY TAKE ONE TABLET BY MOUTH TWICE A DAY SOLD: 11/19/2020 [facility] 90 mcg/actuation 09/03/2020 12:00:00 AM EDT HFA aerosol inha ler 36 INHALE TWO PUFFS BY MOUTH FOUR TIMES A DAY NEEDED INHALE TWO PUFFS BY MOUTH FOUR TIMES A DAY NEEDED SOLD: 09/04/2020 [facility] pantoprazole 40 MG Delayed Release Oral Tablet PANTOPRAZOLE SODIUM 08/21/2020 12:00:00 AM EDT tablet,delayed release (DR/EC) 90 T DEBORAH ONE TABLET BY MOUTH TWICE A DAY TAKE ONE TABLET BY MOUTH TWICE A DAY SOLD: 08/26/2020 [facility] atorvastatin 10 MG Oral Tablet ATORVASTATIN CALCIUM 07/17/2020 1 2:00:00 AM EDT tablet 90 TAKE ONE TABLET BY MOUTH EVERY D AY TAKE ONE TABLET BY MOUTH EVERY DAY SOLD: 11/01/2020 [facility] atorvastatin 10 MG Oral Tablet ATORVASTATIN CALCIUM 07/17/2020 1 2:00:00 AM EDT tablet 90 TAKE ONE TABLET BY MOUTH EVERY D AY TAKE ONE TABLET BY MOUTH EVERY DAY SOLD: 07/23/2020 [facility] 2.5 mg 07/17/2020 12:00:00 AM EDT tablet 90 TAKE ONE TABLET BY MOUTH EVERY DAY TAKE ONE TABLET BY MOUTH EVERY DAY SOLD: 07/23/2020 [facility] 2.5 mg 07/17/2020 12:00:00 AM EDT tablet 90 TAKE ONE TABLET BY MOUTH EVERY DAY TAKE ONE TABLET BY MOUTH EVERY DAY SOLD: 11/19/2020 [facility] 25 mg 07/17/2020 12:00:00 AM EDT tablet 60 TAKE ONE-HALF TABLET BY MOUTH TWICE A DAY TAKE ONE-HALF TABLET BY MOUTH TWICE A DAY SOLD: 07/23/2020 [facility] pantoprazole 40 MG Delayed Release Oral Tablet PANTOPRAZOLE SODIUM 07/16/2020 12:00:00 AM EDT tablet,delayed release (DR/EC) 90 T DEBORAH ONE TABLET BY MOUTH TWICE A DAY TAKE ONE TABLET BY MOUTH TWICE A DAY SOLD: 07/16/2020 [facility] normal saline flush 0.9 % injection 3 mL 57802-628-70 06/14/2020 02:00:00 PM EDT 3 mL Intravenous active 3 mL , Intravenous, PROTOCOL, First dose on Wed06/14/20 at 1400, Pre-op
flush per protocol, D/C Main IV fluid if appropriate
[facility] Medication administered onsite iopamidol (ISOVUE-370) 76 % [id number] 06/14/2020 09:42:18 AM EDT active As needed, Starting on Wed06/14/20 at 0942, Intra-Proc edure [facility] Medication administered onsite 1 ML heparin sodium, porcine 1000 UNT/ML Injection hep vel (porcine) injection heparin (porcine) injection 06/14/2020 09:23:11 AM EDT active As needed, Starting on Wed06/14/20 at 0923, Intra-Procedure [facility] Medication administered onsite 4 ML Verapamil hydrochloride 2.5 MG/ML Injection verap marcus (ISOPTIN) injection verapamil (ISOPTIN) injection 06/14/2020 09:22:48 AM EDT active As needed, Starting on Wed06/14/20 at 0922, Intra-Procedure [facility] Medication administered onsite lidocaine 1 % injection [id number] 06/14/2020 09:21:26 AM EDT active As needed, Starting on Wed at 0921, Intra-Procedure [facility] Medication administered onsite normal saline flush 0.9 % injection 3 mL [id number] 06/14/2020 07:00:00 AM EDT 3 mL Intravenous active 3 mL , Intravenous, Every 8 hours (scheduled), First dose on Wed06/14/20 at 0700, Pre-op
Rapid push positive pressure flushing shall be performed with a 10 cc normal saline syringe to check the PATENCY of a PIV site prior to any infusion therapy initiation unless resistance is met.
[facility] Medication administered onsite sodium chloride 0.9% (NS) infusion 0813-4681-84 06/14/2020 07:00:00 AM EDT 100 mL/h Intravenous active at 100 m L/hr, 100 mL/hr, Intravenous, Continuous, Starting on Wed06/14/20 at 0700, Pre-op
Start two hours prior to scheduled start time
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
Give if scheduled for cardiac or peripheral angioplasty/stent or carotid stenting. Administer AM dose prior to procedure if NOT taken at home. Max of 1 dose per day.
[facility] Medication administered onsite normal saline flush 0.9 % injection 3 mL [id number] 06/14/2020 07:00:00 AM EDT 3 mL Intravenous active 3 mL , Intravenous, Every 8 hours (scheduled), First dose on Wed06/14/20 at 0700, Pre-op
Rapid push positive pressure flushing shall be performed with a 10 cc normal saline syringe to check the PATENCY of a PIV site prior to any infusion therapy initiation unless resistance is met.
[facility] Medication administered onsite Covid-19 vaccine, Unspecified 05/30/2020 12:00:00 AM EDT completed [facility] ([place] [facility]) Medication administered onsite 25 mg 05/22/2020 12:00:00 AM EDT tablet 30 TAKE ONE TABLET BY MOUTH EVERY EVENING TAKE ONE TABLET BY MOUTH EVERY EVENING SOLD: 09/30/2020 [facility] Amitriptyline Hydrochloride 25 MG Oral Tablet AMITRIPTYLINE HCL 05/22/2020 12:00:00 AM EDT tablet 30 TAKE ONE TABLET BY MOUTH EVERY EVENING TAKE ONE TABLET BY MOUTH EVERY EVENING SOLD: 05/27/2020 [facility] Amitriptyline Hydrochloride 25 MG Oral Tablet AMITRIPTYLINE HCL 05/22/2020 12:00:00 AM EDT tablet 30 TAKE ONE TABLET BY MOUTH EVERY EVENING TAKE ONE TABLET BY MOUTH EVERY EVENING SOLD: 08/02/2020 [facility] Amitriptyline Hydrochloride 25 MG Oral Tablet AMITRIPTYLINE HCL 05/22/2020 12:00:00 AM EDT tablet 30 TAKE ONE TABLET BY MOUTH EVERY EVENING TAKE ONE TABLET BY MOUTH EVERY EVENING SOLD: 06/24/2020 [facility] 25 mg 05/22/2020 12:00:00 AM EDT tablet 30 TAKE ONE TABLET BY MOUTH EVERY EVENING TAKE ONE TABLET BY MOUTH EVERY EVENING SOLD: 10/26/2020 [facility] 25 mg 05/22/2020 12:00:00 AM EDT tablet 30 TAKE ONE TABLET BY MOUTH EVERY EVENING TAKE ONE TABLET BY MOUTH EVERY EVENING SOLD: 08/31/2020 [facility] 25 mg 05/17/2020 12:00:00 AM EDT tablet 60 TAKE 1/2 TABLET BY MOUTH TWICE A DAY TAKE 1/2 TABLET BY MOUTH TWICE A DAY SOLD: 05/18/2020 [facility] pantoprazole 40 MG Delayed Release Oral Tablet PANTOPRAZOLE SODIUM 05/14/2020 12:00:00 AM EDT tablet,delayed release (DR/EC) 90 T DEBORAH ONE TABLET BY MOUTH TWICE A DAY TAKE ONE TABLET BY MOUTH TWICE A DAY SOLD: 05/14/2020 [facility] Covid-19 vaccine, Unspecified 05/02/2020 12:00:00 AM EST completed [facility] ([place] [facility]) Medication administered onsite 550 mg 04/30/2020 12:00:00 AM EST tablet 60 TAKE ONE TABLET BY MOUTH TWICE A DAY TAKE ONE TABLET BY MOUTH TWICE A DAY SOLD: 06/11/2020 [facility] 550 mg 04/30/2020 12:00:00 AM EST tablet 60 TAKE ONE TABLET BY MOUTH TWICE A DAY TAKE ONE TABLET BY MOUTH TWICE A DAY SOLD: 07/16/2020 [facility] 100 mcg 04/30/2020 12:00:00 AM EST tablet 90 TAKE ONE TABLET BY MOUTH EVERY DAY TAKE ONE TABLET BY MOUTH EVERY DAY SOLD: 04/30/2020 [facility] 550 mg 04/30/2020 12:00:00 AM EST tablet 60 TAKE ONE TABLET BY MOUTH TWICE A DAY TAKE ONE TABLET BY MOUTH TWICE A DAY SOLD: 08/15/2020 [facility] 100 mcg 04/30/2020 12:00:00 AM EST tablet 90 TAKE ONE TABLET BY MOUTH EVERY DAY TAKE ONE TABLET BY MOUTH EVERY DAY SOLD: 08/15/2020 [facility] 100 mcg 04/30/2020 12:00:00 AM EST tablet 90 TAKE ONE TABLET BY MOUTH EVERY DAY TAKE ONE TABLET BY MOUTH EVERY DAY SOLD: 11/01/2020 [facility] 550 mg 04/30/2020 12:00:00 AM EST tablet 60 TAKE ONE TABLET BY MOUTH TWICE A DAY TAKE ONE TABLET BY MOUTH TWICE A DAY SOLD: 04/30/2020 [facility] atorvastatin 10 MG Oral Tablet ATORVASTATIN CALCIUM 04/24/2020 1 2:00:00 AM EST tablet 90 TAKE ONE TABLET BY MOUTH NIGHTLY TAKE ONE TABLET BY MOUTH NIGHTLY SOLD: 04/25/2020 [facility] 2.5 mg 04/24/2020 12:00:00 AM EST tablet 90 TAKE ONE TABLET BY MOUTH EVERY DAY TAKE ONE TABLET BY MOUTH EVERY DAY SOLD: 04/25/2020 [facility] atorvastatin 10 MG Oral Tablet atorvastatin (LIPITOR) 10 MG tablet atorvastatin (LIPITOR) 10 MG tablet 04/23/2020 12:00:00 AM EST 10 mg Oral active Take 1 tablet (10 mg total) by mouth nightly [facility] Metoprolol Tartrate 25 MG Oral Tablet me toprolol tartrate (LOPRESSOR) 25 MG tablet metoprolol tartrate (LOPRESSOR) 25 MG tablet 04/23/2020 12:0 0:00 AM EST 12.5 mg Oral active Take 0.5 tablets (12.5 mg total) by mouth 2 (two) times a day [facility] Lisinopril 2.5 MG Oral Tablet lisinopril (PRINIVIL,ZES TRIL) 2.5 MG tablet lisinopril (PRINIVIL,ZESTRIL) 2.5 MG tablet 04/23/2020 12:00:00 AM EST 2.5 mg Oral active Take 1 tablet (2.5 m g total) by mouth daily [facility] pantoprazole 40 MG Delayed Release Oral Tablet PANTOPRAZOLE SODIUM 04/08/2020 12:00:00 AM EST tablet,delayed release (DR/EC) 90 T DEBORAH ONE TABLET BY MOUTH TWICE A DAY TAKE ONE TABLET BY MOUTH TWICE A DAY SOLD: 04/12/2020 [facility] 25 mg 03/28/2020 12:00:00 AM EST tablet 60 TK 1/2 TABLET BY MOUTH TWO TIMES A DAY TK 1/2 TABLET BY MOUTH TWO TIMES A DAY SOLD: 03/28/2020 [facility] pantoprazole 40 MG Delayed Release Oral Tablet PANTOPRAZOLE SODIUM 02/19/2020 12:00:00 AM EST tablet,delayed release (DR/EC) 90 T DEBORAH ONE TABLET BY MOUTH TWICE A DAY TAKE ONE TABLET BY MOUTH TWICE A DAY SOLD: 02/24/2020 [facility] 550 mg 12/30/2019 12:00:00 AM EST tablet 60 TAKE ONE TABLET BY MOUTH TWICE A DAY TAKE ONE TABLET BY MOUTH TWICE A DAY SOLD: 01/02/2020 [facility] 550 mg 12/30/2019 12:00:00 AM EST tablet 60 TAKE ONE TABLET BY MOUTH TWICE A DAY TAKE ONE TABLET BY MOUTH TWICE A DAY SOLD: 03/09/2020 [facility] 550 mg 12/30/2019 12:00:00 AM EST tablet 60 TAKE ONE TABLET BY MOUTH TWICE A DAY TAKE ONE TABLET BY MOUTH TWICE A DAY SOLD: 02/01/2020 [facility] 550 mg 12/30/2019 12:00:00 AM EST tablet 60 TAKE ONE TABLET BY MOUTH TWICE A DAY TAKE ONE TABLET BY MOUTH TWICE A DAY SOLD: 04/12/2020 [facility] pantoprazole 40 MG Delayed Release Oral Tablet PANTOPRAZOLE SODIUM 12/28/2019 12:00:00 AM EST tablet,delayed release (DR/EC) 90 T DEBORAH ONE TABLET BY MOUTH TWICE A DAY TAKE ONE TABLET BY MOUTH TWICE A DAY SOLD: 01/02/2020 [facility] 0.5 ML Streptococcus pneumoniae serotype 1 capsular antigen diphtheria [id number] protein conjugate vaccine 0.0044 MG/ML / Streptococcus pneumoniae serotype 14 capsular antigen diphtheria [id number] protein conjugate vaccine 0.0044 MG/ML / Streptococcus pneumonia Prevnar 13 12/01/2019 12:00:00 AM EDT active [facility] ([place] [facility]) pantoprazole 40 MG Delayed Release Oral Tablet PANTOPRAZOLE SODIUM 11/17/2019 12:00:00 AM EDT tablet,delayed release (DR/EC) 90 T DEBORAH ONE TABLET BY MOUTH TWICE A DAY TAKE ONE TABLET BY MOUTH TWICE A DAY SOLD: 11/23/2019 [facility] Potassium Chloride 10 MEQ Extended Release Oral Tablet POTAS SIUM CHLORIDE 10/04/2019 12:00:00 AM EDT tablet extended release 90 TAKE ONE TABLET BY MOUTH EVERY DAY TAKE ONE TABLET BY MOUTH EVERY DAY SOLD: 07/16/2020 [facility] Potassium Chloride 10 MEQ Extended Release Oral Tablet POTAS SIUM CHLORIDE 10/04/2019 12:00:00 AM EDT tablet extended release 90 TAKE ONE TABLET BY MOUTH EVERY DAY TAKE ONE TABLET BY MOUTH EVERY DAY SOLD: 04/04/2020 [facility] Potassium Chloride 10 MEQ Extended Release Oral Tablet POTAS SIUM CHLORIDE 10/04/2019 12:00:00 AM EDT tablet extended release 90 TAKE ONE TABLET BY MOUTH EVERY DAY TAKE ONE TABLET BY MOUTH EVERY DAY SOLD: 01/02/2020 [facility] 550 mg 08/29/2019 12:00:00 AM EDT tablet 60 TAKE ONE TABLET BY MOUTH TWICE A DAY TAKE ONE TABLET BY MOUTH TWICE A DAY SOLD: 11/29/2019 [facility] 550 mg 08/29/2019 12:00:00 AM EDT tablet 60 TAKE ONE TABLET BY MOUTH TWICE A DAY TAKE ONE TABLET BY MOUTH TWICE A DAY SOLD: 10/26/2019 [facility] 25 mg 08/15/2019 12:00:00 AM EDT tablet extended release 24 hr 90 TAKE ONE TABLET BY MOUTH EVERY DAY TAKE ONE TABLET BY MOUTH EVERY DAY SOLD: 05/18/2020 [facility] 25 mg 08/15/2019 12:00:00 AM EDT tablet extended release 24 hr 90 TAKE ONE TABLET BY MOUTH EVERY DAY TAKE ONE TABLET BY MOUTH EVERY DAY SOLD: 11/29/2019 [facility] 25 mg 08/15/2019 12:00:00 AM EDT tablet extended release 24 hr 90 TAKE ONE TABLET BY MOUTH EVERY DAY TAKE ONE TABLET BY MOUTH EVERY DAY SOLD: 08/15/2020 [facility] 25 mg 08/15/2019 12:00:00 AM EDT tablet extended release 24 hr 90 TAKE ONE TABLET BY MOUTH EVERY DAY TAKE ONE TABLET BY MOUTH EVERY DAY SOLD: 02/24/2020 [facility] Amitriptyline Hydrochloride 25 MG Oral Tablet AMITRIPTYLINE HCL 05/09/2019 12:00:00 AM EDT tablet 30 TAKE ONE TABLET BY MOUTH EVERY EVENING TAKE ONE TABLET BY MOUTH EVERY EVENING SOLD: 10/18/2019 [facility] Amitriptyline Hydrochloride 25 MG Oral Tablet AMITRIPTYLINE HCL 05/09/2019 12:00:00 AM EDT tablet 30 TAKE ONE TABLET BY MOUTH EVERY EVENING TAKE ONE TABLET BY MOUTH EVERY EVENING SOLD: 11/23/2019 [facility] Amitriptyline Hydrochloride 25 MG Oral Tablet AMITRIPTYLINE HCL 05/09/2019 12:00:00 AM EDT tablet 30 TAKE ONE TABLET BY MOUTH EVERY EVENING TAKE ONE TABLET BY MOUTH EVERY EVENING SOLD: 02/24/2020 [facility] Amitriptyline Hydrochloride 25 MG Oral Tablet AMITRIPTYLINE HCL 05/09/2019 12:00:00 AM EDT tablet 30 TAKE ONE TABLET BY MOUTH EVERY EVENING TAKE ONE TABLET BY MOUTH EVERY EVENING SOLD: 01/26/2020 [facility] Amitriptyline Hydrochloride 25 MG Oral Tablet AMITRIPTYLINE HCL 05/09/2019 12:00:00 AM EDT tablet 30 TAKE ONE TABLET BY MOUTH EVERY EVENING TAKE ONE TABLET BY MOUTH EVERY EVENING SOLD: 04/25/2020 [facility] Amitriptyline Hydrochloride 25 MG Oral Tablet AMITRIPTYLINE HCL 05/09/2019 12:00:00 AM EDT tablet 30 TAKE ONE TABLET BY MOUTH EVERY EVENING TAKE ONE TABLET BY MOUTH EVERY EVENING SOLD: 03/28/2020 [facility] Amitriptyline Hydrochloride 25 MG Oral Tablet AMITRIPTYLINE HCL 05/09/2019 12:00:00 AM EDT tablet 30 TAKE ONE TABLET BY MOUTH EVERY EVENING TAKE ONE TABLET BY MOUTH EVERY EVENING SOLD: 12/21/2019 [facility] 27 mg magnesium (500 mg) 04/28/2019 12:00:00 AM EST tablet 180 TAKE ONE TABLET BY MOUTH TWICE A DAY TAKE ONE TABLET BY MOUTH TWICE A DAY SOLD: 02/01/2020 [facility] 27 mg magnesium (500 mg) 04/28/2019 12:00:00 AM EST tablet 180 TAKE ONE TABLET BY MOUTH TWICE A DAY TAKE ONE TABLET BY MOUTH TWICE A DAY SOLD: 10/26/2019 [facility] 100 mcg 04/27/2019 12:00:00 AM EST tablet 90 TAKE ONE TABLET BY MOUTH EVERY DAY TAKE ONE TABLET BY MOUTH EVERY DAY SOLD: 02/01/2020 [facility] 100 mcg 04/27/2019 12:00:00 AM EST tablet 90 TAKE ONE TABLET BY MOUTH EVERY DAY TAKE ONE TABLET BY MOUTH EVERY DAY SOLD: 10/26/2019 [facility] 2.5 mg 04/26/2019 12:00:00 AM EST tablet 90 TAKE ONE TABLET BY MOUTH EVERY DAY TAKE ONE TABLET BY MOUTH EVERY DAY SOLD: 10/26/2019 [facility] 2.5 mg 04/26/2019 12:00:00 AM EST tablet 90 TAKE ONE TABLET BY MOUTH EVERY DAY TAKE ONE TABLET BY MOUTH EVERY DAY SOLD: 02/01/2020 [facility] atorvastatin 10 MG Oral Tablet ATORVASTATIN CALCIUM 04/26/2019 1 2:00:00 AM EST tablet 90 TAKE ONE TABLET BY MOUTH EVERY D AY TAKE ONE TABLET BY MOUTH EVERY DAY SOLD: 02/01/2020 [facility] atorvastatin 10 MG Oral Tablet ATORVASTATIN CALCIUM 04/26/2019 1 2:00:00 AM EST tablet 90 TAKE ONE TABLET BY MOUTH EVERY D AY TAKE ONE TABLET BY MOUTH EVERY DAY SOLD: 10/26/2019 [facility] Aspirin 81 MG Delayed Release Oral Table t Aspirin 81 MG Oral Tablet Delayed Release Aspirin 81 MG Oral Tablet Delayed Release 02/26/2019 12:00:00 AM EST 81 mg Oral active Take 1 tablet by mouth d [facility] Metoprolol Tartrate 25 MG Oral Tablet me toprolol tartrate (LOPRESSOR) 25 MG tablet metoprolol tartrate (LOPRESSOR) 25 MG tablet 02/25/2019 12:0 0:00 AM EST 12.5 mg Oral active Take 12.5 mg by mouth 2 (two) times a day [facility] 25 mg 02/25/2019 12:00:00 AM EST tablet 30 TAKE ONE-HALF TABLET BY MOUTH TWICE A DAY MAXIMUM DAILY DOSE = 1 TAKE ONE-HALF TABLET BY MOUTH TWICE A DA Y MAXIMUM DAILY DOSE = 1 SOLD: 12/07/2019 [facility] 25 mg 02/25/2019 12:00:00 AM EST tablet 30 TAKE ONE-HALF TABLET BY MOUTH TWICE A DAY MAXIMUM DAILY DOSE = 1 TAKE ONE-HALF TABLET BY MOUTH TWICE A DA Y MAXIMUM DAILY DOSE = 1 SOLD: 01/04/2020 [facility] 25 mg 02/25/2019 12:00:00 AM EST tablet 30 TAKE ONE-HALF TABLET BY MOUTH TWICE A DAY MAXIMUM DAILY DOSE = 1 TAKE ONE-HALF TABLET BY MOUTH TWICE A DA Y MAXIMUM DAILY DOSE = 1 SOLD: 02/11/2020 [facility] Metoprolol Tartrate 25 MG Oral Tablet Me toprolol Tartrate 25 MG Oral Tablet (LOPRESSOR) Metoprolol Tartrate 25 MG Oral Tablet (LOPRESSOR) 05/2019 12:00:00 AM EST 12.5 mg Oral active Take 0.5 tablets by mouth Two Times Daily [facility] 25 mg 02/25/2019 12:00:00 AM EST tablet 30 TAKE ONE-HALF TABLET BY MOUTH TWICE A DAY MAXIMUM DAILY DOSE = 1 TAKE ONE-HALF TABLET BY MOUTH TWICE A DA Y MAXIMUM DAILY DOSE = 1 SOLD: 11/06/2019 [facility] OneTouch Verio In Vitro Strip [id number] 02/20/2019 12:00:00 AM EST active #200, test 6-8 times daily, E11. 65, 1 [facility] Insurance Providers Payer name Policy type / Coverage type Policy ID Covered green party ID Covered green party's relationship to sánchez Policy Sánchez Plan Information [id number] MEDICARE [id number] SP [id number] MEDICARE [id number] xxxxxxxxxxx [id number] MEDICARE [id number] Laila [id number] Medicare Part B [facility] [id number] 0 [id number] MEDICARE A [id number] Self [id number] MEDICARE [id number] SP [id number] Medicare Natl Govt Servic Medicare Primary [id number] Self [id number] Medicare Natl Govt Servic Medicare Primary [id number] Self [id number] Medicare Natl Govt Servic Medicare Primary [id number] Self [id number] Medicare Natl Govt Servic Medicare Primary [id number] Self [id number] Medicare Natl Govt Servic Medicare Primary [id number] Self [id number] [facility] [id number] Self AARP HE[employer] CARE OPTIONS [id number] SP [id number] [place] 306/806 [id number] SP [id number] [place] 306/806 [id number] SP [id number] AARP U [id number] Self [id number] [employer] OPTIONS [id number] SP [id number] [employer] OPTIONS [id number] SP [id number] MEDICARE [id number] SP [id number] [facility] Opt Medigap Part B [id number] Self [id number] [facility] [facility] Opt Medigap Part B [id number] Self [id number] [facility] [facility] Opt Medigap Part B [id number] Self [id number] [facility] [facility] Medigap Part B [id number] Self [id number] [facility] Medigap Part B [id number] Self [id number] [facility] Opt Medigap Part B Plan F [id number] Self Plan F [facility] [id number] xxxxxxxxxxx [id number] [employer] Option [id number] 0 [id number] [facility] [id number] Laila [id number] AARP U [id number] Self [id number] AARP U [id number] Self [id number] SELF PAY UNAVAILABLE UNAVAILA BLE Medicare [place] Medicare Primary [id number] Self [id number] MEDICARE C [id number] S [id number] AARP O [id number] S [id number] 911 NORIDIAN JE PART B C [id number] S [id number] [employer]arp Medigap Part B [id number] Self [id number] [place] BCBS P [id number] S [id number] [employer] Medigap Part B [id number] Self [id number] Medicare [place]/NGS Medicare Primary [id number] Self [id number] [employer] Options Medigap Part B [id number] Self [id number] MEDICARE C [id number] S [id number] Medicare [place] Medicare Primary [id number] Self [id number] [employer] Medigap Part B [id number] Self [id number] Medicare [place] Medicare Primary [id number] Self [id number] Medicare [facility] Medicare Primary [id number] Self [id number] [facility] Healthcare Options [facility] Part B [id number] Self [id number] Problems, Conditions, and Diagnoses Code Display Name Description Problem Type Effective Dates Data Source(s) D64.9 Anemia, unspecified Anemia, unspecified Diagnosis 0 07/15/2020 02:33:19 PM EDT [facility] E78.2 Mixed hyperlipidemia Mixed hyperlipidemia Diagnosis 07/15/2020 02:33:19 PM EDT [facility] I35.0 Nonrheumatic aortic (valve) stenosis Nonrheumati c aortic (valve) stenosis Diagnosis 07/15/2020 02:33:19 PM EDT [facility] K70.30 Alcoholic cirrhosis of liver without asc ites Alcoholic cirrhosis of liver without asc Diagnosis 07/15/2020 02:33:19 PM EDT [facility] I21.4 Non-ST elevation (NSTEMI) myocardial inf arction Non-ST elevation (NSTEMI) myocardial inf Diagnosis 06/14/2020 06:07:00 AM EDT [facility] E87.6 Hypokalemia Hypokalemia Diagnosis 06/14/2020 06:07:00 AM EDT [facility] Health 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) Iron deficiency anemia secondary to bloo Diagnosis 06/14/2020 06:07:00 AM EDT [facility] [id number] Upper gastrointestinal bleeding Upper gastrointe stinal bleeding Problem 11/26/2020 12:00:00 AM EDT [facility] E87.6 Hypokalemia Hypokalemia [id number] 06/06/2020 12:00:00 AM EDT [facility] D50.0 Iron deficiency anemia due to chronic bl ood loss Iron deficiency anemia due to chronic blood loss [id number] 06/06/2020 12:00:00 AM EDT [facility] K70.30 Alcoholic cirrhosis of liver without asc ites Alcoholic cirrhosis of liver without ascites [id number] 06/06/2020 12:00:00 AM EDT [facility] Surgeries/Procedures Procedure Description Date Indications Data Source(s) OFFICE OUTPATIENT NEW 30 MINUTES 11/26/2020 12:00:00 A M EDT [facility] ([facility] Trans Care SRV W/I 14D Of DC, Comm W/I 2 Dys Med Rec 11/15/2020 12:00:00 AM EDT [facility] ([facility] ) Aparicio Cre SRV W/I 7 Days Of DC, Comm W/I 2 Dys Med Rec 09/03/2020 12:00:00 AM EDT [facility] ([facility] ) OFFICE OUTPATIENT VISIT 25 MINUTES 07/16/2020 12:00:00 AM EDT [facility] ([facility]) DUPLEX SCAN EXTRACRANIAL ART COMPL BI STUDY <td>US CAR OTID BILATERAL</td><td>Pending Discharge</td><td>06/14/2020 12:41 PM EDT</td><td></td><td> </td> 06/14/2020 12:41:14 PM EDT [facility] BEDSIDE PULMONARY FUNCTION TEST <td>BEDSIDE PULMONARY FUNCTION TEST</td><td>Routine</td><td>06/14/2020 11:15 AM EDT</td><td></td><td></td> 06/14/2020 11:15:21 AM EDT [facility] RADEX SPINE ENTIRE SURVEY STD ANTEROPOST&LAT <td>CARDI AC CATHETERIZATION</td><td>Routine</td><td>06/14/2020 9:58 AM EDT</td><td> Severe aortic valve stenosis Mixed hyperlipidemia Anemia, unspecified type NSTEMI (non-ST elevated myocardial infarction) Alcoholic cirrhosis of liver without ascites Iron deficiency anemia due to chronic blood loss Hypokalemia</td><td> </td> 06/14/2020 09:58:46 AM EDT HypokalemiaIron deficiency anemia due to chronic blood lossAlcoholic cirrhosis of liver without ascitesNSTEMI (non-ST elevated myocardial infarction)Anemia, unspecified typeMixed hyperlipidemiaSevere aortic valve stenosis [facility] Hypokalemia Iron deficiency anemia due to chronic bl ood loss Alcoholic cirrhosis of liver without asc ites NSTEMI (non-ST elevated myocardial infar ction) Anemia, unspecified type Mixed hyperlipidemia Severe aortic valve stenosis ECG ROUTINE ECG W/LEAST 12 LDS TRCG ONLY W/O I&R <td>E CG 12- LEAD</td><td>Routine</td><td>06/14/2020 6:36 AM EDT</td><td></td><td></td> 06/14/2020 06:36:04 AM EDT [facility] POCT AMB EKG <td>POCT AMB EKG</td><td>Rou grace</td><td>06/04/2020 2:38 PM EDT</td><td> Severe aortic valve stenosis</td><td> </td> 06/04/2020 06:38:00 PM EDT Severe aortic valve stenosis [facility] Severe aortic valve stenosis ECG ROUTINE ECG W/LEAST 12 LDS W/I&R <td>POCT AMB EKG</td><td>Routine</td><td>04/23/2020 5:22 PM EST</td><td> Severe aortic valve stenosis</td><td> </td> 04/23/2020 10:22:00 PM EST Severe aortic valve stenosis [facility] Severe aortic valve stenosis IRON BINDING CAPACITY <td>IRON BINDING</td><td>Routine</td><td>12/01/2019</td><td></td><td></td> 12/01/2019 12:00:00 AM EDT [facility] BLOOD COUNT COMPLETE AUTO&AUTO DIFRNTL WBC COUNT <td>C BC AND DIFFERENTIAL</td><td>Routine</td><td>12/01/2019</td><td></td><td> </td> 12/01/2019 12:00:00 AM EDT [facility] IRON <td>IRON</td><td>Routine</td ><td>12/01/2019</td><td></td><td> </td> 12/01/2019 12:00:00 AM EDT [facility] HEPATIC FUNCTION PANEL <td>HEPATIC FUNCTION PANEL</td><td>Routine</td><td>12/01/2019</td><td></td><td> </td> 12/01/2019 12:00:00 AM EDT [facility] BASIC METABOLIC PANEL CALCIUM TOTAL <td>BASIC METABOLI C PANEL</td><td>Routine</td><td>12/01/2019</td><td></td><td> </td> 12/01/2019 12:00:00 AM EDT [facility] Results ID Date Data Source [id number] 11/29/2020 10:56:00 AM EDT [facility] ([facility]) Name Value Range Interpretation Code Description Data Cecy rce(s) Supporting Document(s) Leukocytes [#/volume] in Blood by Automated count 3.7 x10*3/UL 4.1-10 .9 [facility] ([facility]) Erythrocytes [#/volume] in Blood by Automated count 3.29 x10*6/UL 4.2 0-6.30 [facility] ([facility]) Hemoglobin [Mass/volume] in Blood 10.2 g/dL 12.0-18.0 [facility] ([facility]) Hematocrit [Volume Fraction] of Blood by Automated count 30.2 % 3 7.0-51.0 [facility] ([facility]) MCV 91.8 fL 80.0-97.0 [facility] ([facility]) MCHC 33.7 g/dL 31.0-38.0 [facility] ([facility]) MCH 30.9 pg 26.0-32.0 [facility] ([facility]) Platelets [#/volume] in Blood by Automated count 55 x10*3/UL 140-440 [facility] NOTE: RESULT VERIFIED. Erythrocyte distribution width [Ratio] by Automated count 15.9 % 11.6-13.7 [facility] ([facility]) Lymph % 29.2 % 10.0-58.5 [facility] ([facility]) MPV 10.6 FL 7.8-11.0 [facility] ([facility]) Lymph # 1.1 x10*3/UL 0.6-4.1 [facility] ([facility]) Neut % 62.7 % 37.0-92.0 [facility] ([facility]) Mid % 8.1 % 1.7-9.3 [facility] ([facility]) Mid # 0.3 x10*3/UL 0.1-0.6 [facility] ([facility]) Neut # 2.3 x10*3/UL 2.0-7.8 [facility] ([facility]) ID Date Data Source [id number] 11/22/2020 10:35:00 AM EDT [facility] ([facility]) Name Value Range Interpretation Code Description Data Cecy rce(s) Supporting Document(s) Leukocytes [#/volume] in Blood by Automated count 3.9 x10*3/UL 4.1-10 .9 [facility] ([facility]) Erythrocytes [#/volume] in Blood by Automated count 3.50 x10*6/UL 4.2 0-6.30 [facility] Hemoglobin [Mass/volume] in Blood 10.6 g/dL 12.0-18.0 [facility] ([facility]) MCV 92.1 fL 80.0-97.0 [facility] ([facility]) Hematocrit [Volume Fraction] of Blood by Automated count 32.2 % 3 7.0-51.0 [facility] ([facility]) MCH 30.4 pg 26.0-32.0 [facility] [facility] MCHC 33.0 g/dL 31.0-38.0 [facility] ([facility]) Erythrocyte distribution width [Ratio] by Automated count 15.3 % 11.6-13.7 [facility] ([facility]) Platelets [#/volume] in Blood by Automated count 69 x10*3/UL 140-440 [facility] ([facility]) NOTE: RESULT VERIFIED. MPV 10.7 FL 7.8-11.0 [facility] [facility]) Lymph % 28.7 % 10.0-58.5 [facility] ([facility]) Neut % 64.3 % 37.0-92.0 [facility] ([facility]) Mid % 7.0 % 1.7-9.3 [facility] ([facility]) Mid # 0.3 x10*3/UL 0.1-0.6 [facility] ([facility]) Lymph # 1.1 x10*3/UL 0.6-4.1 [facility] ([facility]) Neut # 2.5 x10*3/UL 2.0-7.8 [facility] ([facility]) ID Date Data Source [id number] 11/15/2020 09:14:00 AM EDT [facility] ([facility]) Name Value Range Interpretation Code Description Data Cecy rce(s) Supporting Document(s) Total Iron Binding Capacity 303 ug/dL 250-450 [facility] ([facility]) Iron (Fe) 103 ug/dL 50-170 [facility] [facility]) Percent Saturation 34.0 % 13.2-45.0 [facility] ([facility]) ID Date Data Source [id number] 11/15/2020 09:14:00 AM EDT [facility] ([facility]) Name Value Range Interpretation Code Description Data Cecy rce(s) Supporting Document(s) Blood Type Laboratory test result [facility] ([facility]) AB Screen (Indirect Adilia)Vis Laboratory test result [facility] ([facility]) ID Date Data Source [id number] 11/15/2020 09:13:00 AM EDT [facility] Name Value Range Interpretation Code Description Data Cecy rce(s) Supporting Document(s) Glucose [Mass/volume] in Serum or Plasma 101 mg/dL 74-99 [facility] ([facility]) 100-125 mg/dL PRE-DIABETES/FASTING >126 mg/dL DIABETES/FASTING Urea nitrogen [Mass/volume] in Serum or Plasma 9 mg/dL 7-18 [facility] ([facility]) Creatinine 0.9 mg/dL 0.6-1.3 [facility] Potassium [Moles/volume] in Serum or Plasma 4.4 meq/L 3.5-5.1 [facility] ([facility]) Sodium [Moles/volume] in Serum or Plasma 143 meq/L 136-145 [facility] ([facility]) Chloride [Moles/volume] in Serum or Plasma 110 meq/L 98-107 [facility] ([facility]) Carbon dioxide, total [Moles/volume] in Serum or Plasma 29 meq/L 21 -32 [facility] ([facility]) Calcium [Mass/volume] in Serum or Plasma 8.5 mg/dL 8.5-10.1 [facility] ([facility]) Total Bilirubin 1.4 mg/dL 0.2-1.0 [facility] Alkaline phosphatase isoenzyme [Units/volume] in Serum or Pl asma 271 mg/dL 46-116 [facility] ([facility]) NOTE: ALK PHOS,T.BILI,AST,ALBU,T.PROTEIN...VERIFIED Alanine aminotransferase [Enzymatic activity/volume] in Seru m or Plasma 28 U/L 12-78 [facility] ([facility]) Aspartate aminotransferase [Enzymatic activity/volume] in Serum or Plasma 43 U/L 15-37 [facility] Albumin [Mass/volume] in Serum or Plasma 2.3 g/dL 3.4-5.0 [facility] Proteinase 3 Ab [Units/volume] in Serum 6.2 g/dL 6.4-8.2 [facility] A/G Ratio 0.59 CALC 1.00-1.90 [facility] ([facility]) Glomerular filtration rate/1.73 sq M pre dicted among non-blacks [Volume Rate/Area] in Serum or Plasma by Creatinine-based formula (MDRD) 60 mL/min [facility] ([facility]) Glomerular filtration rate/1.73 sq M pre dicted among blacks [Volume Rate/Area] in Serum or Plasma by Creatinine-based formula (MDRD) Laboratory test result [facility] ([facility]) <content>CHRONIC KIDNEY DISEASE STAGING PER NKF</content>
<content></content>
<content>STAGE I & II GFR >= 60 NORMAL TO MILDLY DECREASED</content>
<content>STAGE III GFR 30-59 MODERATELY DECREASED</content>
<content>STAGE IV GFR 15-29 SEVERELY DECREASED</content>
<content>STAGE V GFR <15 VERY LITTLE GFR LEFT</content>
<content>ESRD GFR <15 ON GLACING MACHINE TENDER</content>
<content></content> ID Date Data Source [id number] 11/15/2020 09:13:00 AM EDT [facility] Name Value Range Interpretation Code Description Data Cecy rce(s) Supporting Document(s) Magnesium 1.5 mg/dL 1.8-2.4 [facility] ([facility]) ID Date Data Source [id number] 11/15/2020 09:13:00 AM EDT [facility] ([facility]) Name Value Range Interpretation Code Description Data Cecy rce(s) Supporting Document(s) Leukocytes [#/volume] in Blood by Automated count 4.0 x10*3/UL 4.1-10 .9 [facility] ([facility]) Erythrocytes [#/volume] in Blood by Automated count 3.37 x10*6/UL 4.2 0-6.30 [facility] ([facility]) Hemoglobin [Mass/volume] in Blood 10.2 g/dL 12.0-18.0 [facility] Hematocrit [Volume Fraction] of Blood by Automated count 30.8 % 3 7.0-51.0 [facility] ([facility]) MCV 91.5 fL 80.0-97.0 [facility] [facility]) MCH 30.5 pg 26.0-32.0 [facility] ([place] [facility]) MCHC 33.3 g/dL 31.0-38.0 [facility] ([facility]) Erythrocyte distribution width [Ratio] by Automated count 15.5 % 11.6-13.7 [facility] Platelets [#/volume] in Blood by Automated count 55 x10*3/UL 140-440 [facility] ([facility]) MPV 9.0 FL 7.8-11.0 [facility] ([place] [facility]) Lymph % 18.7 % 10.0-58.5 [facility] ([place] [facility]) Mid % 4.9 % 1.7-9.3 [facility] ([place] [facility] Neut % 76.4 % 37.0-92.0 [facility] ([place] [facility] Lymph # 0.7 x10*3/UL 0.6-4.1 [facility] ([facility]) Mid # 0.2 x10*3/UL 0.1-0.6 [facility] ([facility]) Neut # 3.1 x10*3/UL 2.0-7.8 [facility] ([facility]) ID Date Data Source [id number] 11/07/2020 05:48:00 PM EDT [facility] ([facility]) Name Value Range Interpretation Code Description Data Cecy rce(s) Supporting Document(s) Red Blood Count 2.45 10 4.00-5.40 [facility] ([facility]) White Blood Count 4.2 10 4.0-10.0 [facility] ([facility]) Hemoglobin 7.6 g/dL 12.0-15.5 [facility] Hematocrit 24.7 % 36.0-47.0 [facility] Mean Corpuscular Hemoglobin 31.0 pg 27.0-33.0 [facility] ([facility]) Mean Corpuscular Volume 100.8 fl 80.0-96.0 [facility] ([facility]) Red Cell Distribution Width 15.7 % 11.5-14.5 [facility] ([facility]) Mean Corpuscular HGB Conc 30.8 g/dL 32.0-36.5 [facility] ([facility]) Neutrophils % 53.2 % 36.0-66.0 [facility] ([facility]) Platelet Count, Automated 42 10 150-450 [facility] ([facility]) Lymph % 22.1 % 24.0-44.0 [facility] [facility]) Eos % 5.5 % 0.0-3.0 [facility] [facility] [place] % 18.8 % 2.0-8.0 [facility] [facility]) Baso % 0.2 % 0.0-1.0 [facility] [facility]) Immature Granulocyte % 0.2 % 0-3.0 [facility] ([facility]) Nucleated Red Blood Cell % 0.0 % 0-0 [facility] ([facility]) Neutrophils # 2.2 10 1.5-8.5 [facility] [place] # 0.8 10 0.0-0.8 [facility] [facility] Lymph # 0.9 10 1.5-5.0 [facility] [facility]) Eos # 0.2 10 0.0-0.5 [facility] [facility]) Baso # 0.0 10 0.0-0.2 [facility] [facility] ID Date Data Source [id number] 11/07/2020 05:48:00 PM EDT [facility] ([facility]) Name Value Range Interpretation Code Description Data Cecy rce(s) Supporting Document(s) Platelets reticulated/100 platelets in Blood by Automated count 14.9 % 0.0-9.59 [facility] ([facility]) ID Date Data Source [id number] 11/07/2020 04:55:00 PM EDT [facility] ([facility]) Name Value Range Interpretation Code Description Data Cecy rce(s) Supporting Document(s) Laboratory test finding (navigational concept) 0.01 ng/mL 0.00-0.08 [facility] ([facility]) ID Date Data Source [id number] 11/07/2020 04:34:00 PM EDT [facility] ([facility]) Name Value Range Interpretation Code Description Data Cecy rce(s) Supporting Document(s) Venous PH 7.403 units 7.330-7.430 [facility] ([facility]) Venous Partial Pressure Co2 45.9 mmHg 38.0-50.0 [facility] ([facility]) Venous Partial Pressure O2 141.5 mmHg 30.0-50.0 [facility] ([facility]) Venous Hco3 28.0 meq/L 23.0-27.0 [facility] ([facility]) Venous Total Co2 29.4 meq/L 24.0-28.0 [facility] ([facility]) Venous Standard Hco3 27.1 meq/L [facility] ( [facility]) Venous Base Excess 2.9 [facility] ([facility]) Venous O2 Saturation 98.8 % 60.0-80.0 [facility] ([facility]) ID Date Data Source [id number] 11/07/2020 04:34:00 PM EDT [facility] ([facility]) Name Value Range Interpretation Code Description Data Cecy rce(s) Supporting Document(s) CK-MB Value Mass 1.2 ng/mL [facility] ([facility]) CPK Creatine Phosphokinase 105 U/L 26-192 [facility] ([facility]) Troponin I Laboratory test result [facility] ([facility]) <content>Troponin I Reference Interval f or Siemens [place] LOCI:</content>
<content></content>
<content>99th Percentile= 0.00-0.045 ng/ml</content>
<content></content>
<content>Risk Stratification:</content>
<content><= 0.10 ng/ml Decreased Risk for Adverse Clinical</content>
<content>Events.</content>
<content>0.10-1.50 ng/ml Increased Risk for Adverse Clinical</content>
<content>Events. Evaluation of additional</content>
<content>criterion and/or repeat testing in 2-6</content>
<content>hours is suggested to rule out myocardial</content>
<content>damage.</content>
<content>>= 1.50 ng/ml Indicative of Myocardial Injury.</content>
<content></content> MB/CK Relative Index 1.14 [facility] ([facility]) <content>DIAGNOSIS CRITERIA</content>
<content>MMB ng/ml Relative Index (RI)</content>
<content>NON-AMI < or = 5 N/A</content>
<content>ZEPEDA ZONE > 5 < or = 4</content>
<content>AMI > 5 > 4</content>
<content></content> ID Date Data Source [id number] 11/07/2020 04:34:00 PM EDT [facility] ([facility]) Name Value Range Interpretation Code Description Data Cecy rce(s) Supporting Document(s) Alt/SGPT 30 IU/L 0-32 [facility] [facility] Ast/Sgot 45 IU/L [facility] [facility]) Alkaline Phosphatase 220 U/L 45-117 [facility] ([facility]) Bilirubin,Total 1.6 mg/dL 0.2-1.0 [facility] ([facility]) Bilirubin,Direct 0.6 mg/dL 0.0-0.2 [facility] ([facility]) Albumin 2.2 GM/DL 3.2-5.2 [facility] [facility]) Total Protein 6.0 GM/DL 6.4-8.2 [facility] ([facility]) Albumin/Globulin Ratio 0.6 1.2-2.2 [facility] ([facility]) ID Date Data Source [id number] 11/07/2020 04:34:00 PM EDT [facility] ([facility]) Name Value Range Interpretation Code Description Data Cecy rce(s) Supporting Document(s) Natriuretic peptide.B prohormone N-Terminal [Mass/volu me] in Serum or Plasma 901 pg/mL [facility] ([facility] ) Thyrotropin [Units/volume] in Serum or Plasma by Detec tion limit <= 0.05 mIU/L Laboratory test result 0.358-3.740 [facility] [facility] ID Date Data Source [id number] 11/07/2020 04:34:00 PM EDT [facility] ([facility]) Name Value Range Interpretation Code Description Data Cecy rce(s) Supporting Document(s) Respiratory Panel Laboratory test result [facility] ([facility]) This respiratory PCR panel detects Influ noman A H1, H3 and 2009 H1 viruses, Influenza B virus, Resp iratory Syncytial Virus, Human metapneumovirus, Parainfluenza virus 1, 2, 3 and 4, Adenovirus, Rhinovirus/Enterovirus, Coronavirus HKU1, NL63, OC43, 229E and SARS-CoV-2 (COVID 19), Bordetella pertussis, Bordetella parapertussis, Mycoplasma pneumoniae and Chlamydia pneumoniae. NEGATIVE by MULTIPLEXED NUCLEIC ACID PCR SARS-CoV-2 (COVID 19) NEGATIVE - SARS-CoV-2 (COVID19) ID Date Data Source [id number] 11/07/2020 04:34:00 PM EDT [facility] ([facility]) Name Value Range Interpretation Code Description Data Cecy rce(s) Supporting Document(s) Blood Urea Nitrogen 11 mg/dL 7-18 [facility] ([facility]) Glucose, Fasting 99 mg/dL 70-100 [facility] ([facility]) Creatinine For GFR 0.82 mg/dL 0.55-1.30 [facility] ([facility]) Sodium Level 140 meq/L 136-145 [facility] ([facility]) Glomerular Filtration Rate Laboratory test result [facility] ([facility]) <content>Units are mL/min/1.73 m2</content>
<content></content>
<content>Chronic Kidney Disease Staging per NKF:</content>
<content></content>
<content>Stage I & II GFR >=60 Normal to Mildly Decreased</content>
<content>Stage III GFR 30- 59 Moderately Decreased</content>
<content>Stage IV GFR 15-29 Severely Decreased</content>
<content>Stage V GFR <15 Very Little GFR Left</content>
<content>ESRD GFR <15 on GLACING MACHINE TENDER</content>
<content></content> Potassium Serum 5.0 meq/L 3.5-5.1 [facility] ([facility]) Carbon Dioxide Level 27 mmol/L 20-29 [facility] ([facility]) Chloride Level 111 meq/L 98-107 [facility] ([facility]) Calcium Level 8.1 mg/dL 8.8-10.2 [facility] ([facility]) Anion Gap 2 meq/L 8-16 [facility] ([place] [facility] ID Date Data Source [id number] 11/07/2020 04:34:00 PM EDT [facility] Name Value Range Interpretation Code Description Data Cecy rce(s) Supporting Document(s) SARS-CoV-2 (COVID 19) NEGATIVE - SARS-CoV-2 (COVID19) [facility] This lab was ordered by [facility] a nd reported by [facility]. ID Date Data Source [id number] 09/03/2020 10:49:00 AM EDT [facility] ([facility]) Name Value Range Interpretation Code Description Data Cecy rce(s) Supporting Document(s) Glucose [Mass/volume] in Serum or Plasma 148 mg/dL 74-99 [facility] ([facility]) 100-125 mg/dL PRE-DIABETES/FASTING >126 mg/dL DIABETES/FASTING Urea nitrogen [Mass/volume] in Serum or Plasma 6 mg/dL 7-18 [facility] ([facility]) Sodium [Moles/volume] in Serum or Plasma 143 meq/L 136-145 [facility] ([place] [facility] [place] [facility]) Creatinine 0.9 mg/dL 0.6-1.3 [facility] ([facility] Potassium [Moles/volume] in Serum or Plasma 4.1 meq/L 3.5-5.1 [facility] ([facility]) Chloride [Moles/volume] in Serum or Plasma 107 meq/L 98-107 [facility] ([facility]) Carbon dioxide, total [Moles/volume] in Serum or Plasma 32 meq/L 21 -32 [facility] ([place] [facility] [place] [facility]) Calcium [Mass/volume] in Serum or Plasma 8.3 mg/dL 8.5-10.1 [facility] [facility] Glomerular filtration rate/1.73 sq M pre dicted among non-blacks [Volume Rate/Area] in Serum or Plasma by Creatinine-based formula (MDRD) 60 mL/min [facility] [facility] Glomerular filtration rate/1.73 sq M pre dicted among blacks [Volume Rate/Area] in Serum or Plasma by Creatinine-based formula (MDRD) Laboratory test result [facility] [facility] <content>CHRONIC KIDNEY DISEASE STAGING PER NKF</content>
<content></content>
<content>STAGE I & II GFR >= 60 NORMAL TO MILDLY DECREASED</content>
<content>STAGE III GFR 30-59 MODERATELY DECREASED</content>
<content>STAGE IV GFR 15-29 SEVERELY DECREASED</content>
<content>STAGE V GFR <15 VERY LITTLE GFR LEFT</content>
<content>ESRD GFR <15 ON GLACING MACHINE TENDER</content>
<content></content> ID Date Data Source [id number] 09/03/2020 10:49:00 AM EDT [facility] ([facility]) Name Value Range Interpretation Code Description Data Cecy rce(s) Supporting Document(s) Erythrocytes [#/volume] in Blood by Automated count 3.53 x10*6/UL 4.2 0-6.30 [facility] ([facility]) Leukocytes [#/volume] in Blood by Automated count 3.7 x10*3/UL 4.1-10 .9 [facility] ([facility]) NOTE: CBC AND PLATELET VEREIFIED Hemoglobin [Mass/volume] in Blood 10.1 g/dL 12.0-18.0 [facility] ([facility]) Hematocrit [Volume Fraction] of Blood by Automated count 31.0 % 3 7.0-51.0 [facility] ([facility]) MCV 87.6 fL 80.0-97.0 [facility] MCHC 32.8 g/dL 31.0-38.0 [facility] Erythrocyte distribution width [Ratio] by Automated count 15.8 % 11.6-13.7 [facility] ([facility]) MCH 28.8 pg 26.0-32.0 [facility] MPV 10.8 FL 7.8-11.0 [facility] Platelets [#/volume] in Blood by Automated count 49 x10*3/UL 140-440 [facility] ([facility]) Lymph % 24.1 % 10.0-58.5 [facility] Mid % 6.6 % 1.7-9.3 [facility] Neut % 69.3 % 37.0-92.0 [facility] Neut # 2.6 x10*3/UL 2.0-7.8 [facility] ([facility]) Mid # 0.2 x10*3/UL 0.1-0.6 [facility] ([facility]) Lymph # 0.9 x10*3/UL 0.6-4.1 [facility] ([facility]) ID Date Data Source [id number] 08/28/2020 12:09:00 AM EDT [facility] Name Value Range Interpretation Code Description Data Cecy rce(s) Supporting Document(s) SARS coronavirus 2 RNA [Presence] in Res piratory specimen by MITALI with probe detection NEGATIVE [place]OH This lab was ordered by [facility] a nd reported by [facility]. ID Date Data Source [id number] 07/16/2020 01:35:00 PM EDT [facility] ([facility]) Name Value Range Interpretation Code Description Data Cecy rce(s) Supporting Document(s) Ammonia [Mass/volume] in Blood 64 uMOL/L [facility] ([facility]) ID Date Data Source [id number] 07/16/2020 01:35:00 PM EDT [facility] ([facility]) Name Value Range Interpretation Code Description Data Cecy rce(s) Supporting Document(s) Inr 1.34 [facility] THERAPUTIC HUMAN INR VALUES INDICATIONS NORMAL RANGES PROPHYLAXIS/TREATMENT OF: VENOUS THROMBOSIS 2.0-3.0 PULMONARY EMBOLISM 2.0-3.0 PREVENTION OF SYSTEMIC EMBOLISM FROM: TISSUE HEART VALVES 2.0-3.0 ACUTE MYOCARDIAL INFARCTION 2.0-3.0 VALVULAR HEART DISEASE 2.0-3.0 ATRIAL FIBRILLATION 2.0-3.0 MECHANICAL VALVES(HIGH RISK) 2.5-3.5 RECURRENT MYOCARDIAL INFARCTION 2.5-3.5 Prothrombin Time 16.9 s 12.5-14.3 [facility] ([facility]) ID Date Data Source [id number] 07/16/2020 01:35:00 PM EDT [facility] ([facility]) Name Value Range Interpretation Code Description Data Cecy rce(s) Supporting Document(s) Percent Saturation 17.4 % 13.2-45.0 [facility] ([facility]) Iron (Fe) 64 ug/dL 50-170 [facility] ([facility]) Total Iron Binding Capacity 367 ug/dL 250-450 [place] [facility] ([facility]) ID Date Data Source [id number] 07/16/2020 01:34:00 PM EDT [facility] ([facility]) Name Value Range Interpretation Code Description Data Cecy rce(s) Supporting Document(s) Thyrotropin [Units/volume] in Serum or Plasma by Detec tion limit <= 0.05 mIU/L 0.04 uIU/mL 0.36-3.74 [facility] ([facility] ) ID Date Data Source [id number] 07/16/2020 01:34:00 PM EDT [facility]) Name Value Range Interpretation Code Description Data Cecy rce(s) Supporting Document(s) Cholesterol [Mass/volume] in Serum or Plasma 97 mg/dL 131-200 [facility] ([facility]) Triglyceride [Mass/volume] in Serum or Plasma 47 mg/dL 30-150 [facility] ([facility]) Cholesterol in HDL [Mass/volume] in Serum or Plasma 70 mg/dL 35-60 [facility] ([facility]) Cholesterol in LDL [Mass/volume] in Serum or Plasma by calculation Laboratory test result 50-159 [facility] ([facility] ) ID Date Data Source [id number] 07/16/2020 01:34:00 PM EDT [facility] ([facility]) Name Value Range Interpretation Code Description Data Cecy rce(s) Supporting Document(s) Glucose [Mass/volume] in Serum or Plasma 121 mg/dL 74-99 [facility] ([facility]) 100-125 mg/dL PRE-DIABETES/FASTING >126 mg/dL DIABETES/FASTING Urea nitrogen [Mass/volume] in Serum or Plasma 8 mg/dL 7-18 [facility] ([facility]) Creatinine 1.0 mg/dL 0.6-1.3 [facility] Sodium [Moles/volume] in Serum or Plasma 139 meq/L 136-145 [facility] ([facility]) Potassium [Moles/volume] in Serum or Plasma 3.9 meq/L 3.5-5.1 [facility] ([facility]) Chloride [Moles/volume] in Serum or Plasma 104 meq/L 98-107 [facility] ([facility]) Carbon dioxide, total [Moles/volume] in Serum or Plasma 28 meq/L 21 -32 [facility] ([facility]) Calcium [Mass/volume] in Serum or Plasma 8.1 mg/dL 8.5-10.1 [facility] ([facility]) Alkaline phosphatase isoenzyme [Units/volume] in Serum or Pl asma 253 mg/dL 46-116 [facility] ([facility]) Aspartate aminotransferase [Enzymatic activity/volume] in Serum or Plasma 43 U/L 15-37 [facility] ([facility] ) Total Bilirubin 2.3 mg/dL 0.2-1.0 [facility] ([facility]) Alanine aminotransferase [Enzymatic activity/volume] in Seru m or Plasma 34 U/L 12-78 [facility] ([facility]) Albumin [Mass/volume] in Serum or Plasma 2.8 g/dL 3.4-5.0 [facility] ([facility]) Proteinase 3 Ab [Units/volume] in Serum 6.6 g/dL 6.4-8.2 [facility] ([facility]) A/G Ratio 0.74 CALC 1.00-1.90 [facility] Glomerular filtration rate/1.73 sq M pre dicted among non-blacks [Volume Rate/Area] in Serum or Plasma by Creatinine-based formula (MDRD) 53 mL/min [facility] ([facility]) Glomerular filtration rate/1.73 sq M pre dicted among blacks [Volume Rate/Area] in Serum or Plasma by Creatinine-based formula (MDRD) Laboratory test result [facility] <content>CHRONIC KIDNEY DISEASE STAGING PER NKF</content>
<content></content>
<content>STAGE I & II GFR >= 60 NORMAL TO MILDLY DECREASED</content>
<content>STAGE III GFR 30-59 MODERATELY DECREASED</content>
<content>STAGE IV GFR 15-29 SEVERELY DECREASED</content>
<content>STAGE V GFR <15 VERY LITTLE GFR LEFT</content>
<content>ESRD GFR <15 ON GLACING MACHINE TENDER</content>
<content></content> ID Date Data Source [id number] 07/16/2020 01:34:00 PM EDT [facility] ([facility]) Name Value Range Interpretation Code Description Data Cecy rce(s) Supporting Document(s) Hemoglobin A1c/Hemoglobin.total in Blood 5.5 % [facility] Lab Result Notes: Pre-Diabetes 5.7 - 6.4 % Diabetes = or > 6.5% Glucose mean value [Mass/volume] in Blood Estimated fr om glycated hemoglobin 111 mg/dL 60-110 [facility] ([facility] ) ID Date Data Source [id number] 07/16/2020 01:34:00 PM EDT [facility] Name Value Range Interpretation Code Description Data Cecy rce(s) Supporting Document(s) Leukocytes [#/volume] in Blood by Automated count 4.0 x10*3/UL 4.1-10 .9 [facility] Hematocrit [Volume Fraction] of Blood by Automated count 27.5 % 3 7.0-51.0 [facility] Hemoglobin [Mass/volume] in Blood 9.1 g/dL 12.0-18.0 [facility] Erythrocytes [#/volume] in Blood by Automated count 3.19 x10*6/UL 4.2 0-6.30 [facility] ([facility]) MCHC 33.0 g/dL 31.0-38.0 [facility] [facility] MCH 28.4 pg 26.0-32.0 [facility] [facility]) MCV 86.1 fL 80.0-97.0 [facility] ([facility]) Erythrocyte distribution width [Ratio] by Automated count 15.0 % 11.6-13.7 [facility] Platelets [#/volume] in Blood by Automated count 53 x10*3/UL 140-440 [facility] NOTE: RESULT VERIFIED. MPV 10.5 FL 7.8-11.0 [facility] [facility]) Mid % 7.4 % 1.7-9.3 [facility] [facility]) Lymph % 25.3 % 10.0-58.5 [facility] [facility] Neut % 67.3 % 37.0-92.0 [facility] [facility] Lymph # 1.0 x10*3/UL 0.6-4.1 [facility] ([facility]) Neut # 2.7 x10*3/UL 2.0-7.8 [facility] ([facility]) Mid # 0.3 x10*3/UL 0.1-0.6 [facility] ([facility]) ID Date Data Source [id number] 06/14/2020 04:51:44 PM EDT [facility] NT INFORMATIONPatient MRN Name Date of Age Gend*PT [id number] Marielena Gonzalez P 1935 85 years F HOPPT Location Admission Date/Time Visit ID Attending Provider06/14/20 0607 --- --- EPI ID CSN Admitting Provider [id number] Paul More MD([id number]) Attestation signed by Sheikh Charlie MD at 06/14/2020 4:51 PMI saw and evaluated the patient and reviewed DESKTOP ARCHITECT's note. I agree with thehistory, physical and medical decision making with the following additions,exceptions, and/or observations:84 years old female with history of hypertension diabetes mellitus, COPD,dyslipidemia, obesity, hypothyroidism who is having cardiac work- up done duringhospitalization and found to have severe aortic stenosis. Patient has historyof cirrhosis hence GI has been consulted for risk stratification. Her INR wasnot checked recently nor abdominal ultrasound has been done hence MELD-Na andchild Rivas score cannot be calculated at this time to stratify her risk.However considering her severe thrombocytopenia as well as last EGD findingsshowing possible fundal varix as well as GAVE she appears to have advancedcirrhosis. At the time of my examination patient was already dressed up andleaving the hospital. I have suggested her to follow with a localgast roenterologist/furniture fabricator who can stratify her perioperative risk onceabove studies are available with respect to any plans for cardiac surgery.Signature: Mars Charlie, MDDate: June 14, 2020Time: 4:44 PM --Gastroenterology Nurse Practitioner Consult NoteClorus Yesenia Gonzalez85 years, female, 1935MRN: [id number] Yen Consulting MD: Dr. 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 We are asked to consult onthe patient due to cirrhosis.Patient denies fever, chills, weakness, fatigue. Appetite is good. R eport weighthas always been around 200 lbs but gained 30 lbs within the last year.Denies abdominal pain.Denies heartburn, dysphagia, odynophagia, regurgitation of food or foodimpaction, nausea or vomiting.Denies change in bowel habits. Denies diarrhea, constipation, brbpr or melena.Denies chest pain or pressure. Has dyspnea when she "overdoes it."Denies easy bleeding/bruising, jaundice, swelling in abdomen/legs, andconfusion.She previously drank "a few glasses of wine" every few days. No recent alcoholuse. Denies tylenol and NSAIDs. No anticoagulant use.Past Medical History:Past Medical History:Diagnosis Date Abdominal ultrasound 03/27/2019 ([facility]) Somewhat small liver w/ coarsened echogenicity pattern raising possiblityof hepatic cirrhosis. Alcoholism Anemia 03/25/2019 Aortic stenosis Arthritis Asthma Cancer 25 years ago in uterus Cirrhosis COPD (chronic obstructive pulmonary disease) Diabetes Echocardiogram 01/24/2019 ([facility] cardiology) LVEF 60-65%. Mild MAC with mild mitral stenosis, noregurgitation. Grade 1 LV diastolic dysfunction. Severe aortic stenosis. TraceAI. Trivial pericardial effusion. Echocardiogram 09/01/2017 ([facility] cadiology) LVEF 60-65%. LV diastolic dysfunction. Concentric mild LVH.Moderate aortic stenosis. Echocardiogram 01/2019 ([facility]) LVEF 59%. Indeterminate LV diastolic dysfunction. Severe aorticsclerosis and stenosis. P(eak/mean gradient 72.69 mmHg/50.17 mmHg) GI bleed GIB (gastrointestinal bleeding) H/O echocardiogram 11/13/2019 LV EF 65-70%, severe (mean gradient 57mmHg) History of transfusion few months ago Hyperlipidemia Hypertension Hypothyroidism Regadenoson SPECT 09/01/2017 ([facility] cardiology) No angina or arrhythmia with stress. Perfusion study isnormal; no ischemia or infarction noted. Wall motion study shows normalcontractility. LVEF 68%.Past Surgical History:Past Surgical History:Procedure Laterality Date ABDOMINAL SURGERY APPENDECTOMY 20 years ago CATARACT EXTRACTION, BILATERAL EYE SURGERY 2 years ago new lens FOOT SURGERY Right HYSTERECTOMY JOINT REPLACEMENT 6 years ago stefanie knee caps NASAL SEPTUM SURGERY PANENDOSCOPY N/A 03/27/2019 Procedure: ENDOSCOPY, UPPER GASTROINTESTINAL (GI) TRACT W APC; Surgeon: MD Meng; Laterality: N/A; PANENDOSCOPY N/A 06/07/2019 Procedure: ENDOSCOPY, UPPER GASTROINTESTINAL (GI) TRACT W BIPOLAR THERAPY;Surgeon: Speedy Justice MD; Laterality: N/A; REPLACEMENT TOTAL KNEE Bilateral UPPER GASTROINTESTINAL ENDOSCOPY 03/27/2019 (Dr Ravinder Perez) Multiple AVM's and watermelon stomachMedications:Medications Prior to AdmissionMedication Sig Dispense Refill Last Dose albuterol (PROVENTIL HFA;VENTOLIN HFA) 108 (90 Base) MCG/ACT inhaler Inhale 2puffs 4 (four) times a day as needed for wheezing albuterol (PROVENTIL) (2.5 MG/3ML) 0.083% nebulizer solution Take 2.5 mg bynebulization every 6 (six) hours as needed for shortness of breath amitriptyline (ELAVIL) 25 MG tablet Take 25 mg by mouth nightly atorvastatin (LIPITOR) 10 MG tablet Take 1 tablet (10 mg total) by mouthnightly 90 tablet 1 levothyroxine (SYNTHROID, LEVOTHROID) 100 MCG tablet Take 100 mcg by mouthdaily lisinopril (PRINIVIL,ZESTRIL) 2.5 MG tablet Take 1 tablet (2.5 mg total) bymouth daily 90 tablet 1 magnesium gluconate (MAGONATE) 500 MG tablet Take 500 mg by mouth 2 (two)times a day metoprolol tartrate (LOPRESSOR) 25 MG tablet Take 0.5 tablets (12.5 mg t otal)by mouth 2 (two) times a day 90 tablet 1 Mirabegron ER (MYRBETRIQ) 25 MG TB24 Take 25 mg by mouth nightly pantoprazole (PROTONIX) 40 MG tablet Take 1 tablet (40 mg total) by mouth 2 (two) times a day 60 tablet 0 potassium chloride (K-DUR) 10 MEQ tablet Take 10 mEq by mouth daily rifaximin (XIFAXAN) 550 MG TABS Take 550 mg by mouth 2 (two) times a day Umeclidinium [place] (INCRUSE ELLIPTA) 62.5 MCG/INH AEPB InhaleAllergies:Bacitracin and LatexFamily History:Family HistoryProblem Relation Age of Onset Cirrhosis Mother Cirrhosis Father Hyperlipidemia Son Myocardial Infarction ([place]) Son 52 Diabetes SonSocial History:Social HistorySocioeconomic History Marital status: Spouse name: None Number of children: None Years of education: None Highest education level: NoneOccupational History NoneTobacco Use Smoking status: Former Smoker Packs/day: 0.50 Years: 43.00 Pack years: 21.50 Types: Cigarettes Quit date: 2004 Years since quittin.3 Smokeless tobacco: Never UsedSubstance and Sexual Activity Alcohol use: Not Currently Drug use: Never Sexual activity: NoneOther Topics Concern NoneSocial History Narrative NoneSocial Determinants of HealthFinancial Resource Strain: Difficulty of Paying Living Expenses:Food Insecurity: Worried About Running Out of Food in the Last Year: Ran Out of Food in the Last Year:Transportation Needs: Lack of Transportation (Medical): Lack of Transportation (Non-Medical):Physical Activity: Days of Exercise per Week: Minutes of Exercise per Session:Stress: Feeling of Stress :Social Connections: Frequency of Communication with Friends and Family: Frequency of Social Gatherings with Friends and Family: Attends [employer] Services: Active Member of Clubs or Organizations: Attends Club or Organization Meetings: Marital Status:Intimate Partner Violence: Fear of Current or Ex-Partner: Emotionally Abused: Physically Abused: Sexually Abused:Physical Exam:Vitals: Temp: [98 F] 98 FHeart Rate: [61-74] 69Resp: [16-22] 16BP: (91-123)/(41-66) 101/53GENERAL PHYSICAL EXAM: NAD, obeseSKIN: warm and dryEYES: pink conjunctiva, sclera without ictericHEENT: oral mucosa is moist.CARDIOVASCULAR: + S1, + S2, RRR, systolic murmur RUSBRESPIRATORY: clear to auscultation to anterior examABDOMINAL: + bowel sounds, soft, NT, NDEXT: No edemaMENTAL: Alert, oriented X 3Labs, Imaging, and other Diagnostics:The most recent diagnostic tests were reviewed, including:Lab ResultsComponent Value Date WBC 4.30 06/04/2020 HGB 10.20 (L) 06/04/2020 HCT 30.50 (L) 06/04/2020 MCV 93.00 06/04/2020 PLT 58 (A) 12/01/2019Invalid input(s): LABALBULab ResultsComponent Value Date LABBILI 1.7 (H) 06/04/2020 ALKPHOS 226.0 (H) 06/04/2020 ALT 45.0 06/04/2020 AST 57.0 (H) 06/04/2020 ALBUMIN 3.0 (L) 06/04/2020 PROT 7.1 06/04/2020ab ResultsComponent Value Date LIPASE 32 (L) 03/25/2019No results found for: AMYLASELab ResultsComponent Value Date PROTIME 12.2 (H) 06/07/2019 INR 1.17 06/07/2019 APTT 28.3 03/25/2019CT A/P 06/07/2019:IMPRESSION:1. Cirrhosis with portal hypertension/splenomegaly.2. Constipation. Colonic diverticulosis. No bowel obstruction. No findings ofacute appendicitis.3. Small fat-containing infraumbi lical ventral abdominal wall hernia. 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 We are asked to consult onthe patient due to cirrhosis.Recommend1. Cirrhosis- RAGLAND cirrhosis vs alcoholic cirrhosis. Liver workup negative for viralhepatitis and other hepatocellular disorders last year.- No evidence of hepatic encephalopathy.- Has thrombocytopenia. 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 Will be able to makerecommendations once this is done.- Need US liver to evaluate for ascites and liver mass. Check AFP for HCCscreening.-We want to thank the primary team for allowing us the opportunity toparticipate in the care of this patient.-The care of plan was discussed at length with the patient, all questions wereanswered to satisfaction and they are in agreement.-The above s tated care of plan was discussed at length with Dr. Guerra,recommendations were made, and he will see and evaluate the patient.Signature: Karen Smith, NPDate: June 14, 2020Time: 11:45 AMGastroenterology and Hepatology of [phone] Name Value Range Interpretation Code Description Data Cecy rce(s) Supporting Document(s) ID Date Data Source [id number] 06/14/2020 01:15:46 PM EDT [address] [id number] Name: MARIELENA GONZALEZDOB: 1935Sex: FOrdering Provider: FILIBERTO KIMuthgil Prov: FILIBERTO MOHANETTReferring Provider: Procedure Performed: US CAROTID BILATERALExam Date: 06/14/2020 12:41MRN: [id number] Number: [id number] Class: OutpatientAccount #: [id number] for Exam: TAVR protocolTechnique: NOT READY TO READ!!!Comparison: NoneFindings: The right and left carotid systems were examined by Doppler sonography. Carotid stenosis measurements were performed using the NASCET method.RIGHT CAROTID SYSTEM:Common Systolic Velocity 102 cm/s End-Diastolic Velocity 16 cm/sInternal Systolic Velocity 155 cm/s End-Diastolic Velocity 29 cm/sExternal Systolic Velocity 172 cm/s End-Diastolic Velocity 0 cm/sVertebral Artery 65 cm/s Antegrade flowICA/CCA Systolic Ratio = 1.5 Internal Carotid Artery Stenosis: Less than 50%LEFT CAROTID SYSTEM:Common Systolic Velocity 107 cm/s End-Diastolic Velocity 20 cm/sInternal Systolic Velocity 182 cm/s End-Diastolic Velocity 51 cm/sExternal Systolic Velocity 123 cm/s End-Diastolic Velocity 15 cm/sVertebral Artery 87 cm/s Antegrade flowICA/CCA Systolic Ratio = 1.7 Internal Carotid Artery Stenosis: 50-69%IMPRESSION: There is scattered atherosclerotic plaque within the common carotid arteries bilaterally most noted within the common carotid bulbs. There is shadowing plaque identified within the proximal portions of the internal carotid arteries slightly more prominent on the left than the right.No hemodynamically significant stenosis involving the origin of the right internal carotid artery.Approximately 50-69% stenosis involving the origin of the left internal carotid artery with dampening of the waveform at level of calcified shadowing plaque.This study was communicated via the departmental critical results reporting protocol.Report electronically signed by: IDALMIS RAMOS On 06/14/2020 1:15 PMWorkstation ID: [id number] Name Value Range Interpretation Code Description Data Cecy rce(s) Supporting Document(s) ID Date Data Source [id number] 06/14/2020 10:07:33 AM EDT [facility] Name Value Range Interpretation Code Description Data Cecy rce(s) Supporting Document(s) &PDF [facility] KMISCz4hBwHDQyPb52/RHBlvIGAco8TeJYrnSAu2RCorDRRlX2AlkPzqIFoJEX4IJ41pK3zNJzWIGWKo vci [file] [id number]== ID Date Data Source [id number] 06/14/2020 07:47:48 AM EDT [facility] Name Value Range Interpretation Code Description Data Cecy rce(s) Supporting Document(s) EKG [facility] AOSPYa2lDoOZNqSlz0GqGbOgMZMiWO5rpwi8J9U8wGHoE6VeyIMbu1jmH3KfJ0BmNNInQSKSXV0JoDRx jb2 [file] d+//Xxu2dR/aWIu6pC849v2hnpYr6J237oT331 D8bpvl0Bhq3H9/vexf5R5/89LsD2hnrUXpM1MrHy2Tzl9/UL3RVaum7w5KomRYdTkqIlWc7ofpllz5W7 h1aWFvJBgWHtpK2PN+CZjUnOdGbPWFdxOyiMG0SogLcf9QqvV3w1kBCjd7iMKWAFFFCPtbM5KK5UKCJC rUTUDMFUFCVuKgpTSZRsmcmWmWyZyZaZbJnJlplsWc [file] MDAwMDAgbiAKMDAwMDAwMDUyMyAwMDAwMCBuIAowMD GwRPDxCyQeMQTzYPCmPB1nIxOeQLSvEQT5EWHfNQNnMXFyseUHXFTxXJYwYJz9ETMxRKLmLYRgVZqhNH EbJEWmDGE8AIYsSHLwWZ3eDuSgZUSyRAEiOHCnWBKbRVEfoxWRAMLhHFSbVMD6QYGgHYAhDBFpZHlwPL AcWTFkTez3VIGaLSCmGX1aIuLcGBCtQRB9WRErQOEm QCZaajHDIUFxHPZ4SmL7ZTKnEUPpPXHfVShhTKUgPIMrXoT8KCVvSCEjJB0xXqGeAUJrWGN3FuKnSWHm BTZsvkAEDHUnWBEbYVE7LfJzJBFrWDJjJBxiIXCfAZFuSQKeNLC0VHF4GMUfOiFaOLdkORKBIPbZT9Hy hbJjMvCMO0hpLk8iTkZyONCXA3Vle6UaYNCwVWEODd6+KnV3WYG0oYFvGsf5UYL7QCvlBULYBj== ID Date Data Source [id number] 06/09/2020 11:55:00 AM EDT [facility] ([facility]) Name Value Range Interpretation Code Description Data Cecy rce(s) Supporting Document(s) Coronavirus 2019 Nasopharygeal Laboratory test result [facility] ASSAY INFORMATION: Real Time RT-PCR NOTE: The COVID-19 assay has been cleared by the U.S. Food and Drug Administration under the Emergency Use Authorization (EUA). [facility] [employer] [facility] are designated as high complexity laboratories by the Clinical Laboratory Improvement Amendments of 1988(CLIA) and are qualified to perform this test. Not Detected ID Date Data Source [id number] 06/09/2020 11:55:00 AM EDT [facility] Name Value Range Interpretation Code Description Data Cecy rce(s) Supporting Document(s) SARS-CoV-2 (COVID-19) RNA [Presence] in Respiratory specimen by MITALI with probe detection Not Detected [facility] This lab was ordered by [facility] and reported by [employer]. ID Date Data Source [id number] 12/01/2019 03:31:00 PM EDT [facility] ([facility]) Name Value Range Interpretation Code Description Data Cecy rce(s) Supporting Document(s) Iron (Fe) 170 ug/dL 50-170 [facility] ([place] [facility]) Percent Saturation 60.3 % 13.2-45.0 [facility] ([facility]) Total Iron Binding Capacity 282 ug/dL 250-450 ME D[facility] ([facility]) ID Date Data Source [id number] 12/01/2019 03:31:00 PM EDT [facility] ([facility]) Name Value Range Interpretation Code Description Data Cecy rce(s) Supporting Document(s) Urea nitrogen [Mass/volume] in Serum or Plasma 12 mg/dL 7-18 [facility] ([facility]) Glucose [Mass/volume] in Serum or Plasma 122 mg/dL 74-99 [facility] ([facility]) 100-125 mg/dL PRE-DIABETES/FASTING >126 mg/dL DIABETES/FASTING Potassium [Moles/volume] in Serum or Plasma 4.0 meq/L 3.5-5.1 [facility] ([facility]) Creatinine 0.9 mg/dL 0.6-1.3 [facility] Sodium [Moles/volume] in Serum or Plasma 141 meq/L 136-145 [facility] ([facility]) Carbon dioxide, total [Moles/volume] in Serum or Plasma 25 meq/L 21 -32 [facility] ([facility]) Chloride [Moles/volume] in Serum or Plasma 108 meq/L 98-107 [facility] ([facility]) Calcium [Mass/volume] in Serum or Plasma 8.5 mg/dL 8.5-10.1 [facility] ([facility]) NOTE: ALK PHOS,T.BILI,AST,ALBUMIN VERIFIED Total Bilirubin 2.3 mg/dL 0.2-1.0 [facility] ([facility]) Alkaline phosphatase isoenzyme [Units/volume] in Serum or Pl asma 260 mg/dL 46-116 [facility] ([facility]) Aspartate aminotransferase [Enzymatic activity/volume] in Serum or Plasma 56 U/L 15-37 [facility] ([facility] ) Albumin [Mass/volume] in Serum or Plasma 3.0 g/dL 3.4-5.0 [facility] ([facility]) Alanine aminotransferase [Enzymatic activity/volume] in Seru m or Plasma 40 U/L 12-78 [facility] ([facility]) Proteinase 3 Ab [Units/volume] in Serum 7.4 g/dL 6.4-8.2 [facility] ([facility]) Glomerular filtration rate/1.73 sq M pre dicted among non-blacks [Volume Rate/Area] in Serum or Plasma by Creatinine-based formula (MDRD) 60 mL/min [facility] ([facility]) A/G Ratio 0.68 CALC 1.00-1.90 [facility] [facility] Glomerular filtration rate/1.73 sq M pre dicted among blacks [Volume Rate/Area] in Serum or Plasma by Creatinine-based formula (MDRD) Laboratory test [facility] <content>CHRONIC KIDNEY DISEASE STAGING PER NKF</content>
<content></content>
<content>STAGE I & II GFR >= 60 NORMAL TO MILDLY DECREASED</content>
<content>STAGE III GFR 30-59 MODERATELY DECREASED</content>
<content>STAGE IV GFR 15-29 SEVERELY DECREASED</content>
<content>STAGE V GFR <15 VERY LITTLE GFR LEFT</content>
<content>ESRD GFR <15 ON GLACING MACHINE TENDER</content>
<content></content> ID Date Data Source [id number] 12/01/2019 03:31:00 PM EDT [facility] ([facility]) Name Value Range Interpretation Code Description Data Cecy rce(s) Supporting Document(s) Erythrocytes [#/volume] in Blood by Automated count 3.89 x10*6/UL 4.2 0-6.30 [facility] ([facility]) Leukocytes [#/volume] in Blood by Automated count 4.1 x10*3/UL 4.1-10 .9 [facility] ([facility]) Hemoglobin [Mass/volume] in Blood 12.5 g/dL 12.0-18.0 [facility] ([facility]) MCV 95.4 fL 80.0-97.0 [facility] ([place] [facility]) Hematocrit [Volume Fraction] of Blood by Automated count 37.1 % 3 7.0-51.0 [facility] ([facility]) MCH 32.1 pg 26.0-32.0 [facility] ([place] [facility]) MCHC 33.6 g/dL 31.0-38.0 [facility] ([facility]) Erythrocyte distribution width [Ratio] by Automated count 14.1 % 11.6-13.7 [facility] ([facility]) MPV 10.5 FL 7.8-11.0 [facility] ([place] [facility]) Platelets [#/volume] in Blood by Automated count 58 x10*3/UL 140-440 [facility] ([facility]) NOTE: RESULT VERIFIED. Lymph # 0.9 x10*3/UL 0.6-4.1 [facility] ([facility]) Lymph % 23.2 % 10.0-58.5 [facility] ([place] [facility]) Mid % 6.2 % 1.7-9.3 [facility] ([place] [facility]) Neut % 70.6 % 37.0-92.0 [facility] ([place] [facility]) Neut # 2.9 x10*3/UL 2.0-7.8 [facility] ([facility]) Mid # 0.3 x10*3/UL 0.1-0.6 [facility] ([facility]) ID Date Data Source [id number] 10/19/2019 03:30:00 PM EDT [facility] Name Value Range Interpretation Code Description Data Cecy rce(s) Supporting Document(s) [facility] YXMRRb8mCzAWZeSrSLBePyySRNgsCFnqJTMcY0O6HKftEt8JIMgqqwEjWDEoUm8+KXRxXU0wmw7zUIAm gMy 1wABLiAfgfS6LkIFRlo69TOIWoKTuDBbXxHmWwQSE4OQCpEpIoKOD5UiDmZmfmZO3fSKM2GPTlBYmoAQ WcXYgmTNIgMsrpFp1hHPsgRBspRx6WPX9zr5PjJCXiEWDpEhyVLNdgSCknMMNlNRWxIEIzM621qzJmSL 9FeZFiXHz9AAYqBaY1JJHmSpX3QFKkUnFlVqWtZWYe D2Szo076sjZukvR3OW3NE8TqQST5MUz5A9ohCvPcAFQbMDSoKW5uMlN5QALcHq7JpGfcCWZuLYClBu4N gWh5ROJ4PETeFx2+Pj4+Mc0ctiYkGubSWYGbGQ5vlc00QO5WrVVtOD9HSPqyX15bBQyuDy30NPpeACCt MvCwOEc8Hn9xEaHlm3BpU1TqTYj0Y6bNMyrdP1TqKX kyYD9iUQD2GHOeOm2+Bs5mTVHlXP86WSOpAJQMJ7NrydVdznBbAOv1ISHbTv1+Yt9ghrViXtxHRADgVB 6xon72AQ6LVA9qiMlaTKL2MttbS13enMSlT8peYjDvU4IkaQtrQCUwPY7qV6OyXWwrITHlMO9hllJlcA 3HuKa7JSOsGf6UaNN9ZKOzH99kXGThWAJVHVUrb8Tm QY3El1jmjyZxLVRtEF7ZRBXnQ2DVB6GfB9iojIqvQQWiIU2UFUuymPUjNBo0YK7CiHDmNEMjO74unZ7q QC27QRf+XrY8zmWcfW9SySsie7WTHS353x0X6+BdOn2FqZxZXDSRWMjlDAOB8I0OpHtACYYXo5Lrh9je 7gwafAYd/OS/0796fL2obuz4dc5pmht41l7A02dx29 [file] 7PekU04L/Marco+fkmq+McLRDqG9o9SZ4bUuZS1plZq0OO25VGyjWdtYQqDfQqQtvsBsnLGyjDaRZqTTsin IorcfODM9OnXxj3spL452OIT+WkSnEd/WDUbmRQ65y+OXG7xv4I9MWeD7IMHVa5os2+YDVlHluj+c+Yw tTZilp1969iqf1vDJGDekeX9razCclbT8+zKgPCcdt 2QNekm3ZUwr3k0vqxilLHrxSrd9oq1DawWulfiFKg9ZMkN7GX7WoWMu7CC+wMyz0nrZ1zP5quMRFjYzy PWa112h5SOh86r01HCDrfHcff8ymzVJ9JIZmChkYxcSvxMS2HcXppbwI04i2qPEqWnCnGghULUt/3sW0 XOgiQXTU9JaS3AfVNgCv+HddBH71bcPpdgoBegmdHc DA1DKso0aH0jCSq28x/yyEs22EHFEZThOmf0KARXPwK9SXueQpUKvuWvia59hk0lvD/Jp7dP3glT8nDT ZRjtpC2y/PfvQlUIsB/V496y9oSNIjY+nm7ZBsKmJP855dpVqG9+Kz9z37nGEE45nJ+RbGagWD9Xtb47 +5sqDzRx7C4/OYyyhZsGQgb/1bIGtNX/T9DJJ/RbXw Dat9p+W7QqLjRMvSO2ZtmPj1Y82pqTeR5EExowcgz75DglMzyz5K2rTFfPuqkzn3Bsxq7AUbPj0e1DcX xsZnl5Lhnwr/q7U8UZk7zjAD++BbnPei1ZEZTylBz6YTQmUUBPE2QMpi0Unlx88//Maria Elena//MJgJjIQxRh [file] cB20X43JgVr9he/jz99CSBH6czDTE8u+DESKTOP ARCHITECT/rdWMV4Dvtpc81q+mYLvL7s0GJNSrtXI8Arz80xcBd2DKx [file] sleeve setter+98c/tV1qkt1ke54T8z64CS7hPDpv2laziszu9wZA/4 [file] Óscar+ctnxA7Jx2NmE49yDh1i1Zxaexsf7oiLenQ3Q3iyGadCvlK4CnfjvrbkLhrSAMwtp9gseIj3fc+p8 [file] 32/3dQoC13MB6SH+7mK0LqDolsMa7cvprIIqz/b+dent jgoB75h+Rd72AnBnB84VqSo3JZdbn3zQ6QM1jEDQmXPp4N9M+XdN66cEBrxduthXYuRgc8iIfBJDhMiG VRuVmSjjIX4fieCUk6/kn/wefVtynh8qculgJ6+MEwjOgjc4YRwms2yZcs8hgil9JmlPASh2++sTOJB9 yC295UzXok3fPsgnIkO9N+5j3ILxlqJYOHYf27tp69 8ByKeI/bKxvjXCLN+aNdVhNl3LW2HQfln15dYtYchmw09Ayo1u1+8hZZvQCTmy8CH9cxr66OfbSLITvu uN+05l8l9Vks7DZ8ObSvn/Rha2Y9zQAmHcqxmFbm43Cwa7klHR67tMBZRaHNwjh5ROOELogOj6/JBQYM RwgX5xTTL/XCgGc2j3sluLKbYz6jRWrwKa1SFmZCTy wyQRdfaS84YukF5Kj/HcR4BRwNsBhsq1T8vw24rAIOH3/4ttYY+9T8acpoYpEaXpMwCH9ThZClbXeFxh f41SIM/Kygrsv6lwjRDlaES8UV6ywVsGHQpDDtnX5v4dCjp6x+D7Mh5yqROv/vU72A9tN/pp1dz2zb3f manager studio+yT/PgBNq2KTzlBTyaaetWIkZNrLqtK24Qpsahc [file] F4n62afyDFGPWD7i9RjtIoh6rjQs3wAMqAa+svp of digital/mPk [file] 3h//zfGoExkErvsdpWmrO8dbvrOFY/fIy4B7YO8 ZOUNbxC5/su7iFIgJA1TLGfwOlsJPOpG10pzHarkc2Kr2bhbezu7L3EMqKZOwYOydYHceOHpVLF1liUE AUYamf3v7SO5UcR/J/YNjxBy2l7s0iZ8dQPJZMhIqwhWr4lqsXKiFlHpUo4vEJUNstz4SAGd/y+SwXJi 223j/t+hSFueOJjGCLmg40X/px6dj+NEv0IqjdOZBm pHQR9o/dtc+marco+n2xTHFSDTmU1py/INGNq+IA/Z06DTqJ47PPUWuZ+LAJGh9CSqullrm/Y27nvkMvYw6 [file] Martín+WM3evyyI5PsG8W+HJL62cRphAzawYzuc6g+bNDDOtKv1jvdheRlTpT2TmEXGz/75sILPREbzOD0qA [file] 0wKOL6/FyjLgRn0ZT7aBEtt0lskBDbVuCf+a6vUCi7/BATHROOM TILING PROFESSIONAL/PDlPeC9/7qyOhdwZusuDRaFgXxsMQZcDEt [file] Jose Daniel+WQ+2ojA1yGiDyekXQLl1NLF078FVPVQg19qDxr0hofYt6VRvB0iNhOskGlh7rFd6BLz01JBTnwRo3 [file] 7w9k+w50TYroXKShHnjY02E5fZDtlKC7/VTFiPFRYmmYuEF663+omjj8ecbZ+svp of digital+l/Y0YG1axP737xr2 RffTQ2jKYOwP+T1ZSZryzBrYIHJMN8Gx/qMl+x5mcnMVImWdmd+RK/FL6BqKORYE+WBLrbZj5DSh0yUG Hf9N+ilYcHrQHCAuun50p97Ekj8CnUY/4Wx+e5MCPi tEyEYjWRevro43ddlEoHY71tDWzDd666o1o79ZqxEXuGtN8evMvkvGAl6jpAAdh+ByU6GJnsgatdae2v PzCcG08QJwYrujALUqZ1qg5JRJhO2CSKYsNT2UgRR/v5nCqIlGvBLcbKupOdtkuf8T/pUoG0fzOYwlb2 fFVnEI9egfkZnk8rLPxOreiiAF0x4AqslfPaQQHld9 fwitBkQHoAeBE7TxBq5I5NJdBqqGkSqZ2IGqfto0QJDdpiF7v5Z9zTcB1aXWsbYLX1THokxeK7vnIAZ6 g93fijgTrtZFXQ3O7G2wxZ/OqzYUF+zGZKX/6mwUibJB4wcfos0Mc/WCuvu4qfgRY1FgJGM2Gy12AEN/ XO8VBpFnAmNhRhUQzlmFfb9kexYFsMeXSja3OaWXrH rKPiniNC3r5xAh/mUn12B8MrK1dZILkr64pR+3TrVr20YcaDjmhJd/QeKkwYxsHNnQXQcYAYdHUO31Ew V1TeqDwrDeuiz+2CdYKJSs2AcEH7KpkBj8O7zyjVbJboZy1MkiZV7hqUG2W5k3mSjMzNHdBC2k5U+MIGUELANGEL [file] QjkS8TLmsajbMSAdQgwfqJ5ASl5XQofbdJum1cpjqN G7+th5uHO5jxUIdHVroqDir89q4uthpv66YocgBF6JymB+gZCi8hgPdRIO5QHbrDvg7rQy22THshX7BL OnUZtnD6vktKK6kFmLvo4FmCwOfPYg1jkJve1cC4oTUWUxL6yrVwxT+NNqyzlP9k72DUUdSlBIROazWR M7u1TxfAMv9t8cOtCBUzL3zq2VwT5auhzkxK2lqbSh DzkOlCZKrMlEYjoQmJE0pZx6eLPNR6i6a5Op9QJpOMbKa25gcXneQZajd83pH/l6MTBH79RDszpajCnx WZSbz2104jYUZdobM9D3VrEiF6r+ScnEFn9ZkU/AqLZDMJGV6ubJvV1RoplVrirCxq+l4i76WG+9Uiww V1oJDgQJcwYH0bJtwAzlsBBk/eocT7dCItL/TOg3Fy bjk90ijT0Ea4o7q3blekHgZ+u2ByrSA+HQi7t2mpH3+uq8zEIvI6/MDrU91ESDfpTuwJOKB4lHeqV6zi O4uj9YoSFA7FtkpcoVbm6lwUm3D0g0KpC/mU/2gXgQPpjN13Sji6qBCOjcx1v5MxOWC3X32vsmD9qX8X VvY/bEF2Bx/1aNa0cORGEtGYwER9nR/N0HL97rBTpz BATHROOM TILING PROFESSIONAL+iPH0RFsxF6p7SH9Gl63CVP3LxFRF0aX+AWD6SPRW1tJwEUJfQb28EmyGNYLHRJWdcIW/+GTPzeEqF [file] lzEqeU9jg6VrBxQF9Mh1uuY9s4ICphaXYWOB9xxNq6dozA6P5mO4xfsc52bdlleoP0XnTtfF/Kevd+MARTÍN [file] 0hgWimaybAq0b8r4FZN7HUAHeMApEeK2jjnXJYU1zSV5ZNkYLFp6o7++XRi239nWC+martín+VX0HsqBmN9a [file] Bárbara+xpkWOxpeBs7K1PbDt7FzvMI/dO37w/D1cGTdhaMWwtJyKO2aMZn3t4b47csadB4Akw+ZYdxIjzEk VZAbBg0RFr2+/QU/WYj5EN8XS8p0NBXF3Bt+9E4fSu 0s5i5/r7HULozyq6BsLW/VqlVnOXgoqrGHet94DWnDkUQgV/rm4ozbuBup0eBbhD8ASICBeBwgsL7BwC yCvsPAEYWQch8IzpzUi86Iu9t4KMifZTtbdABY/zeopsyHjKEOig0SUxsOcAiGJjHPyHDqu9KEKRwvI4 V56nl3ivz+mwPu6qUrUm+2z22YECI1kKRXLCugSpfq ehvKgaNSeNbImsYIQNd1sH38g12NLW9BFAp9NXvtN8YAxaB/9pTtzV+DM0xa0M+xsv4cvxD/jD5zAeVH zXJEZLwlMwl90u7SkJjNbOi4VY569TaTuz97uV3LXcrNOg/WhFRI9ipaCrxkIsKNz7drCgSy6dh3dLB1 mFyCxuWoMTkyeKGSDVTsrHyrr0ezAGz0vpUdIZ177K xs8MpmtHEeHXcsBldilyJcWY2igugEdIh8ipghag8EA7ROEa3OSfSjhyzFV+7P/OtC/s1hDbqT0ahX98 0mxmkPNl38ht6oo+q9Q+B6Zw6iqe8bnhlMNEO8+JSUQyljTWy6JiG50PzmCU6sIYsrEl6l960vYhPahz DT7cn7/QD+PcqQTTTmqKv0dLJjZM0suRds8/pqVXze /TMb8whqkCEQcDQZdTcVO9+261HuHVmzNE9QTf4QmV7JIwcOHgwePubqr3BE354sqAn+jXt3gU8b8nJI g9m9rE370qEsF8GmU2XPRMFK7UMStjHc50P7i1WM508mJa2FiHdnKsNfnxQuccrO6u+XSIhfdMcgP9CF 05x1Cpz0eu9LRkrIAi3sQThl/mbR+XbroCfwYblXT+ DcNmJdFqLP4GJpCaKa3vmWLISK6P9O24jdK05K1wOFzAksYW4ZkGRJ183ijw5EV1vvHyE5LE7pgslGG/ QcHj+shania+sFa2Jxx9grKPloECD5xa9NZD3Adj/0eRSl7rcEzKOJL/ji81uIkpG/Mfis2fTL762NTZRAu [file] qxDFqPFthTPszrKZNSBVkpls0ClzSH7wVigP2hUh1wUfGtCmN5Cnf6IUwRBrqOOHuhoOXRfFONKc/accounts payables clerk [file] wnkmgTvPPtfIMRlIJ0++6Gwk//LOjz6kk4y/1z [file] h6kXuaWleC7qTMUzN7HwsFp/l4f5o/feXDoX+Zo uW592YBswL9O0griMe3JtxugFPuf0j7kf/ulvsOd3PwT0fJwSwX7qAW3p9x2IVzbXPgH0TCKm4JMVYNc kozJbSKUdbfunAeY1xQ6+s1LEPmsCtT4HmGkVj8AigPf99Bkeg2w3XklsD8hYEIj3ReG8O5HhUjbqMaz 5Peup8p9TTxfHQaNQF4NzRQJDthWSg6JoFp0BEUOLg w45mzMlJfKFKjd/EGNwhtE08gc4KmUZpk69vcEslE2RAZ5u+rOPIH7t8ND3xpNz4O+viV3vdJNIU7xxO yliBzrc7TR4Dkd21EXNAcGS5E7UWEz6ZLHh1fVDMAN+8cLUexa960W7Tpagg3csk5i/e8TTLrG832wuP 4Cj/RHweIjRG1u6lUBX6pUhqiryXBlYDCf/EJoqewb swAtn5mzUTz9LmqmQ+x7GXgkdGI0XnZfAsVMaqQtZ6D/wzMx9/q8VThr30ZAQi9f1IACTjw6wLIQY/KING 69y4Y0HZZbHHucgX3aIekcwjX2DaRpEdxTJE3mBrqcroZptBUPhWgeAH3xloazNbxk2c3TeH+rY94E/9 9yiYJtWQdfLK8Dj3QEIfZJ9hQQmIAL+6ugdEbI+KSJ lKrRow7NVI20bEdB6qzbNmtBDpobqB1X8Tw46s3gSwDPmzLouRii4Ok45s8ZA509JIo7nJv4/Iw/Graciela [file] CqH0yQ542eIBSfkeC19VH90xAxYr5v6wv51jnHKXojli9fuML/BATHROOM TILING PROFESSIONAL/w3aSC8L6RhGVXZr4K/xaLFZ33xf [file] eMujFPFVcqH9M+jose antonio/n7CQ/yll/5YPu9HKRxMxYiq9EPwgjQob1iw0B3ovM/7hH/7hH/7hH/9Q9IjNHs [file] IGN+paper bag inspector/C3QS3Z+wZQQ5tI5Pcad53SiIgNR+RkuR5yI [file] ZFEBpjboOqcYCwQJ5IOqMaOL5ydp0KUaC4DIF1rGWaDb5ZRVC6LKy5PY6AKBRYB8S= Procedure Social History Code Duration Value Status Description Data Source(s ) Alcohol intake 06/17/2020 12:00:00 AM EDT Ex-drinker (finding) comp leted Ex- drinker (finding) [facility] Alcohol intake 06/14/2020 12:00:00 AM EDT Ex-drinker (finding) comp leted Ex- drinker (finding) [facility] Alcohol intake 06/04/2020 12:00:00 AM EDT Not Currently completed [facility] Cigarette pack-years 06/04/2020 12:00:00 AM EDT UNK completed [facility] Cigarettes smoked current (pack per day) - Reported 06/05/19 12:00:00 AM EDT UNK completed [facility] Smoking 06/04/2020 12:00:00 AM EDT Former smoker completed Former smoker [facility] Alcohol intake 11/13/2019 12:00:00 AM EDT Not Currently completed [facility] Cigarette pack-years 11/13/2019 12:00:00 AM EDT UNK completed [facility] Cigarettes smoked current (pack per day) - Reported 11/13/19 12:00:00 AM EDT UNK completed [facility] Smoking 11/13/2019 12:00:00 AM EDT Former smoker completed Former smoker [facility] Vital Signs ID Date Data Source UNK Name Value Range Interpretation Code Description Data Source(s) Body height 62 [in_i] 62 [in_i] [facility] 5[facility]2" Body weight 220.00 [lb_av] 220.00 [lb_av] [facility] ([facility]) Systolic blood pressure 133 mm[Hg] 133 mm[Hg] M [facility] ([facility]) Diastolic blood pressure 70 mm[Hg] 70 mm[Hg] [facility] ([facility]) Heart rate 72 /min 72 /min [facility] Body mass index (BMI) [Ratio] 40.2 kg/m2 40.2 k g/m2 [facility]) Body weight 99.792 kg 99.792 kg [facility] ([facility]) Body temperature 97.2 [degF] 97.2 [degF] [facility]) Diastolic blood pressure 80 mm[Hg] 80 mm[Hg] [facility] ([facility]) Heart rate 86 /min 86 /min [facility] ([facility] Body weight 226.00 [lb_av] 226.00 [lb_av] [facility] T ([facility]) Oxygen saturation in Arterial blood by Pulse oximetry 94 % 94 % [facility] ([facility]) 2.5 liters Systolic blood pressure 136 mm[Hg] 136 mm[Hg] [facility] ([facility]) Body mass index (BMI) [Ratio] 41.4 kg/m2 41.4 k g/m2 [facility] ([facility]) Diastolic blood pressure 62 mm[Hg] 62 mm[Hg] [facility] ([facility]) Body height 62.50 [in_i] 62.50 [in_i] [facility] ([facility] 5'2.50" Body weight 230.00 [lb_av] 230.00 [lb_av] [facility] T ([facility]) Systolic blood pressure 138 mm[Hg] 138 mm[Hg] [facility] ([facility]) Heart rate 73 /min 73 /min [facility] Oxygen saturation in Arterial blood by Pulse oximetry 94 % 94 % [facility] ([facility]) on 3L Body weight 227.00 [lb_av] 227.00 [lb_av] [facility] T ([facility]) Body mass index (BMI) [Ratio] 40.9 kg/m2 40.9 k g/m2 [facility] ([facility]) Body height 62.50 [in_i] 62.50 [in_i] [facility] 5'2.50" Heart rate 78 /min 78 /min [facility] ([facility]) Systolic blood pressure 120 mm[Hg] 120 mm[facility]Hg] [facility] Diastolic blood pressure 66 mm[Hg] 66 mm[Hg] [facility] ([facility]) Body mass index (BMI) [Ratio] 41.99 kg/m2 41.99 kg/m2 [facility] Systolic blood pressure 132 mm[Hg] 132 mm[Hg] [facility] Diastolic blood pressure 54 mm[Hg] 54 mm[Hg] [facility] Heart rate 84 /min 84 /min [facility] Body height 157.5 cm 157.5 cm [facility] Body weight 104.146 kg 104.146 kg [facility] Oxygen saturation in Arterial blood by Pulse oximetry 96 % 96 % [facility] Body temperature 36.5 Olimpia 36.5 Olimpia [facility] Heart rate 70 /min 70 /min [facility] Respiratory rate 16 /min 16 /min [facility] Oxygen saturation in Arterial blood by Pulse oximetry 98 % 98 % [facility] Systolic blood pressure 110 mm[Hg] 110 mm[Hg] [facility] Diastolic blood pressure 53 mm[Hg] 53 mm[Hg] [facility] Body height 157.5 cm 157.5 cm [facility] Body weight 104 kg 104 kg [facility] Body mass index (BMI) [Ratio] 41.94 kg/m2 41.94 kg/m2 [facility] Diastolic blood pressure 46 mm[Hg] 46 mm[Hg] [facility] Systolic blood pressure 108 mm[Hg] 108 mm[Hg] [facility] Body height 157.5 cm 157.5 cm [facility] Body weight 103.42 kg 103.42 kg [facility] Body mass index (BMI) [Ratio] 41.70 kg/m2 41.70 kg/m2 [facility] Oxygen saturation in Arterial blood by Pulse oximetry 97 % 97 % [facility] Heart rate 87 /min 87 /min [facility] Body weight 104.327 kg 104.327 kg [facility] Systolic blood pressure 114 mm[Hg] 114 mm[Hg] [facility] Diastolic blood pressure 60 mm[Hg] 60 mm[Hg] [facility] Heart rate 68 /min 68 /min [facility] Body height 157.5 cm 157.5 cm [facility] Body mass index (BMI) [Ratio] 42.07 kg/m2 42.07 kg/m2 [facility] Oxygen saturation in Arterial blood by Pulse oximetry 96 % 96 % [facility] Systolic blood pressure 122 mm[Hg] 122 mm[Hg] [facility] ([facility]) Diastolic blood pressure 68 mm[Hg] 68 mm[Hg] [facility] Heart rate 78 /min 78 /min [facility] ([facility]) Body height 62.50 [in_i] 62.50 [in_i] [facility] 5'2.50" Body weight 224.00 [lb_av] 224.00 [lb_av] [facility] T ([facility]) Body mass index (BMI) [Ratio] 40.3 kg/m2 40.3 k g/m2 [facility] Patient Treatment Plan of Care Planned Activity Planned Date Details Description Data Source (s) normal saline flush 0.9 % injection 3 mL 06/14/2020 02:00:00 PM EDT [facility] 1 ML heparin sodium, porcine 1000 UNT/ML Injection 06/14/2020 09 :23:11 AM EDT [facility] normal saline flush 0.9 % injection 3 mL 06/14/2020 07:00:00 AM EDT [facility] normal saline flush 0.9 % injection 3 mL 06/14/2020 07:00:00 AM EDT [facility] atorvastatin 10 MG Oral Tablet 04/23/2020 12:00:00 AM EST [facility] Lisinopril 2.5 MG Oral Tablet 04/23/2020 12:00:00 AM [facility] Metoprolol Tartrate 25 MG Oral Tablet 04/23/2020 12:00:00 AM [facility] Aspirin 81 MG Delayed Release Oral Tablet 02/26/2019 12:00:00 AM [facility] Metoprolol Tartrate 25 MG Oral Tablet 02/25/2019 12:00:00 AM [facility] Metoprolol Tartrate 25 MG Oral Tablet 02/25/2019 12:00:00 AM [facility] OneTouch Verio In Vitro Strip 02/20/2019 12:00:00 AM [facility]
--- NOTE | 2020-12-11 14:47 | ROOR ---
Patient Name: Marielena Gonzalez Procedure Date: 12/11/2020 2:29 PM Date of : 1935 Age: 85 Room: [facility] Gender: Female Note Status: Finalized Procedure: Egd + Apc Indications: Unexplained iron deficiency anemia, Watermelon stomach (GAVE syndrome) Providers: Nitin Rico MD Referring MD: SWATHI KEEN JR, MD Requesting Provider: Medicines: Monitored Anesthesia Care Complications: No immediate complications. Procedure: Pre-Anesthesia Assessment: - The heart rate, respiratory rate, oxygen saturations, blood pressure, adequacy of pulmonary ventilation, and response to care were monitored throughout the procedure. The Endoscope was introduced through the mouth, and advanced to the second part of duodenum. The upper GI endoscopy was accomplished without difficulty. The patient tolerated the procedure well. Findings: The Z-line was regular and was found 35 cm from the incisors. A medium-sized hiatal hernia was present. 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 Coagulation for hemostasis using argon plasma at 0.8 liters/minute and 35 verma was successful. The exam of the duodenum was otherwise normal. Impression: - Z-line regular, 35 cm from the incisors. - Medium-sized hiatal hernia. - Gastric antral vascular ectasia without bleeding. Treated with argon plasma coagulation (APC). - No specimens collected. - The examination was otherwise normal. Recommendation: - Patient has a contact number available for emergencies. The signs and symptoms of potential delayed complications were discussed with the patient. Return to normal activities tomorrow. Written discharge instructions were provided to the patient. - High fiber diet. - Continue present medications. - Repeat upper endoscopy at appointment to be scheduled for retreatment. - Return to referring physician. - The findings and recommendations were discussed with the patient. Procedure Code(s): --- Professional --- 56945, Esophagogastroduodenoscopy, flexible, transoral; with control of bleeding, any method Diagnosis Code(s): --- Professional --- K44.9, Diaphragmatic hernia without obstruction or gangrene K31.819, Angiodysplasia of stomach and duodenum without bleeding D50.9, Iron deficiency anemia, unspecified CPT copyright 2019 [employer]. All rights reserved. The codes documented in this report are preliminary and upon health information coder review may be revised to meet current compliance requirements. Nitin Rico MD Nitin Rico MD 12/11/2020 2:47:01 PM Electronically signed by Nitin Rico MD Number of Addenda: 0 Note Initiated On: 12/11/2020 2:29 PM Estimated Blood Loss: Estimated blood loss: none.
[2020-12-11 15:21] VITALS: BP 146/72
[2020-12-11 15:42] LABS: HEMOGLOBIN 9.7 g/dl (12.0-15.5); MEAN CORPUSCULAR HEMOGLOBIN 31.4 pg (27.0-33.0); MEAN CORPUSCULAR HGB CONC 31.3 g/dl (32.0-36.5); MEAN CORPUSCULAR VOLUME 100.3 fl (80.0-96.0); RED BLOOD COUNT 3.09 10^6/uL (4.00-5.40); WHITE BLOOD COUNT 4.9 10^3/uL (4.0-10.0)
[2020-12-11 15:43] LABS: PLATELET COUNT, AUTOMATED 64 10^3/uL (150-450)
== END 2020-12-11 15:23 | disposition home or self-care (01) ==
LOC: M OPP 12:36
PROVIDERS: ATTEND Internal Medicine Gastroenterology
DX: D50.9 Iron deficiency anemia, unspecified (principal); K31.819 Angiodysplasia of stomach and duodenum without bleeding; K44.9 Diaphragmatic hernia without obstruction or gangrene; K31.89 Other diseases of stomach and duodenum; K74.60 Unspecified cirrhosis of liver; Z79.899 Other long term (current) drug therapy; Z88.1 Allergy status to other antibiotic agents; Z91.040 Latex allergy status; Z87.891 Personal history of nicotine dependence

== ENCOUNTER 2020-12-18 11:15 | Inpatient (IN) | payer MEDICARE ==
[2020-12-18] VITALS (8 sets, daily range): BP systolic 142–188; BP diastolic 65–80
[~2020-12-18] VITALS: Ht 157.5 cm; Wt 101.3 kg
[~2020-12-18 11:15] MED LIST changes: -NS 1,000 ML IV ONE
[2020-12-18] MEDS ORDERED: NS 1,000 ML IV SCH ×2 (11:30→19:35)
[2020-12-18] MEDS ORDERED: DEXTROSE 50% 50 ML SYRINGE As Ordered ONE (11:46)
[2020-12-18 11:52] LABS: VENOUS BASE EXCESS -11.5 (-2.0-2.0); VENOUS HCO3 11.5 MEQ/L (23.0-27.0); VENOUS O2 SATURATION 98.7 % (60.0-80.0); VENOUS PARTIAL PRESSURE CO2 17.4 mmHg (38.0-50.0); VENOUS PH 7.439 UNITS (7.330-7.430); VENOUS STANDARD HCO3 15.1 MEQ/L; VENOUS TOTAL CO2 12.1 MEQ/L (24.0-28.0)
[2020-12-18 11:57] LABS: EOS # 0.1 10^3/uL (0.0-0.5); EOS % 4.4 % (0.0-3.0); LYMPH % 32.9 % (24.0-44.0); MEAN CORPUSCULAR HEMOGLOBIN 32.3 pg (27.0-33.0); MEAN CORPUSCULAR HGB CONC 30.4 g/dl (32.0-36.5); MEAN CORPUSCULAR VOLUME 106.2 fl (80.0-96.0); MONO # 0.4 10^3/uL (0.0-0.8); MONO % 13.2 % (2.0-8.0); NEUTROPHILS # 1.5 10^3/uL (1.5-8.5); NEUTROPHILS % 49.2 % (36.0-66.0); RED BLOOD COUNT 1.61 10^6/uL (4.00-5.40)
--- NOTE | 2020-12-18 11:57 | REP ---
INDICATION: Altered Mental Status. COMPARISON: 11/07/2020. TECHNIQUE: Single portable AP view of the chest was performed. FINDINGS: There is mild chronic accentuation of interstitial markings in both lung bases. There is mild elevation of the left hemidiaphragm with some very mild patchy atelectasis or infiltrate in the inferior left lung base. Heart is normal in size. Calcific plaque is seen of the thoracic aorta. The mediastinal silhouette is unchanged. IMPRESSION: Chronic interstitial changes in the lung bases. Mild elevation of the left hemidiaphragm with very mild atelectasis or infiltrate in the left lung base.This appears similar to the prior studies of 11/07/2020 and 09/03/2020. <Electronically signed by Jv Ford > 12/18/20 [id number]
[2020-12-18 12:01] LABS: HEMATOCRIT 17.1 % (36.0-47.0); HEMOGLOBIN 5.2 g/dl (12.0-15.5); PLATELET COUNT, AUTOMATED 40 10^3/uL (150-450)
[2020-12-18 12:26] LABS: AMPHETAMINES LEVEL URINE NEGATIVE (NEGATIVE); BARBITURATES URINE NEGATIVE (NEGATIVE); BENZODIAZEPINES URINE NEGATIVE (NEGATIVE); CANNABINOIDS URINE NEGATIVE (NEGATIVE); COCAINE METABOLITE URINE NEGATIVE (NEGATIVE); METHADONE URINE NEGATIVE (NEGATIVE); OPIATES URINE NEGATIVE (NEGATIVE); PHENCYCLIDINE URINE NEGATIVE (NEGATIVE)
--- NOTE | 2020-12-18 12:27 | REP ---
INDICATION: Altered Mental Status. COMPARISON: None. TECHNIQUE: 5 mm contiguous transaxial sections were obtained from the skull base to the cerebral convexities. FINDINGS: The ventricles and sulci are consistent with the patient's age. There are no extra-axial fluid collections. There is no mass effect. The deep cerebral white matter is consistent with the patient's age. Note is again made of benign basal ganglion calcifications status quo. The orbital and petrous structures, cerebellopontine angles, and posterior fossa are unremarkable. The sella turcica, cavernous, and paracavernous structures are essentially unremarkable. The visualized portions of the paranasal sinuses and mastoid air cells are clear. Images of the skull base show no gross abnormality. IMPRESSION: No significant change from the prior exam. No evidence of acute intracranial pathology. There is evidence of deep white matter ischemic change and chronic basal ganglion calcifications status quo. <Electronically signed by Devonte Mac > 12/18/20 1999
--- OUTSIDE RECORDS SUMMARY | 2020-12-18 12:44 | CCD | Continuity of Care Document ---
Author Author Marielena Barrow MD Organization Unknown Address [address] [address] Phone [phone] Care Team Providers Care Artificial Intelligence Specialist Name Role Phone Ebony Lakhani AUTM [phone] Austin Rashid MD AUTM [phone] Sarahi Rojas MD AUTM [phone] Hector Barrow JR, MD AUTM Unavailable Monica Carpenter AUTM [phone] Problems Active Problems Provider Date Type 2 [...] Mouth Every Day 30units Haile Busch 03/08/2019 Albuterol Sulfate (2 .5mg/3ML) 0.083% Nebulizer use via aerosol neb four times a day as needed (covered under Part B) j44.9 120units Hector Barrow MD 03/02/2019 Nebulizer Kit/Tubing/Mouthpiece K it use four times a day dx j44.9 1units Hector Barrow MD 03/02/2019 Atorvastatin Calcium 10mg [...] mouth every day 90tabs Hector Barrow MD Sucralfate 1GM/10ML Suspension 10 milliliters one hour before meals three twice a day a day and at bedtime. Unknown Medications Administered in Office Medication SIG Qnty Indications Ordering Provider Date Administration Of Flu Vaccine Inj ection Hector Barrow MD 11/29/2020 Covid-19 vaccine, Unspecified Inj ection Unknown 05/30/2020 Covid-19 vaccine, Unspecified Inj ection Unknown 05/02/2020 Administration Of Flu Vaccine Inj doc Barrow MD 01/19/2017 Administration Of Flu Vaccine Inj doc Barrow MD 12/02/2015 Immunizations CPT Code Status Date Vaccine Lot # [id number] Given 11/29/2020 Influenza Vaccin e Quadrivalent Preser/Antibiotic Free Im Use [id number] U-Flu Given 11/16/2019 Influenza,Unspecified 67095 Given 11/16/2019 Shingrix Zoster Vaccine (HZV), Recombinant, Subunit, Adjuvanted 23346 Given 01/19/2017 Influenza Vaccin e Quadrivalent Preser/Antibiotic Free Im Use [id number] 03614 Given 07/17/2016 Pneumovax 23 [id number] Given 12/19/2015 Prevnar 13 [id number] Given 12/02/2015 Fluvirin Virus Vaccine [id number] 01 Vital Signs Date Vital Result Comment 12/16/2020 2:20pm BP Systolic 112 mmHg BP Diastolic 66 mmHg Heart Rate 82 /min Height 62.50 inches 5'2.50" Weight 220.00 lb O2 % BldC Oximetry 97 % 3 liters BMI (Body Mass Index) 39.6 kg/m2 11/15/2020 8:47am BP Systolic 136 mmHg BP Diastolic 80 mmHg Heart Rate 86 /min Weight 226.00 lb O2 % BldC Oximetry 94 % 2.5 liters Results Test Acquired Date Facility Test Result H/L Range Note Laboratory test finding 12/11/[facility] [address] [place], [place] [id number] [phone] Immature Platelet Fraction 12.3 % High 0.0-9 .59 Complete Blood Count 12/11/2020 [facility] [address] [place] [address] [phone] White Blood Count 4.9 10 Normal 4.0-10.0 Red Blood Count 3.09 10 Low 4.00-5.40 Hemoglobin 9.7 g/dL Low 12.0-15.5 Hematocrit 31.0 % Low 36.0-47.0 Mean Corpuscular Volume 100.3 fl High 80.0-96.0 Mean Corpuscular Hemoglobin 31.4 pg Normal 27.0-33.0 Mean Corpuscular HGB Conc 31.3 g/dL Low 32.0-36.5 Red Cell Distribution Width 18.6 % High 11.5-14.5 Platelet Count, Automated 64 10 Low 150-450 Nucleated Red Blood Cell % 0.0 % Normal 0-0 Coronavirus 2019 Nasopharygeal 12/06/2020 [facility] [address] [id number] [phone] Coronavirus 2019 Nasopharygeal ASSAY INFORMATIO <SEE N OTE> 1 Complete Blood Count 11/29/2020 [facility] Auto Machinist: [place] [address] [phone] WBC 3.7 x10*3/UL Low 4.1 - 10.9 RBC 3.29 x10*6/UL Low 4.20 - 6.30 Hemoglobin 10.2 g/dL Low 12.0 - 18.0 Hematocrit 30.2 % Low 37.0 - 51.0 MCV 91.8 fL 80.0 - 97.0 MCH 30.9 pg 26.0 - 32.0 MCHC 33.7 g/dL 31.0 - 38.0 RDW 15.9 % High 11.6 - 13.7 PLT 55 x10*3/UL Low 140 - 440 2 MPV 10.6 FL 7.8 - 11.0 Lymph % 29.2 % 10.0 - 58.5 Mid % 8.1 % 1.7 - 9.3 Neut % 62.7 % 37.0 - 92.0 Lymph # 1.1 x10*3/UL 0.6 - 4.1 Mid # 0.3 x10*3/UL 0.1 - 0.6 Neut # 2.3 x10*3/UL 2.0 - 7.8 Complete Blood Count 11/22/2020 [facility] Auto Machinist: [place] [address] [phone] WBC 3.9 x10*3/UL Low 4.1 - 10.9 RBC 3.50 x10*6/UL Low 4.20 - 6.30 Hemoglobin 10.6 g/dL Low 12.0 - 18.0 Hematocrit 32.2 % Low 37.0 - 51.0 MCV 92.1 fL 80.0 - 97.0 MCH 30.4 pg 26.0 - 32.0 MCHC 33.0 g/dL 31.0 - 38.0 RDW 15.3 % High 11.6 - 13.7 PLT 69 x10*3/UL Low 140 - 440 3 MPV 10.7 FL 7.8 - 11.0 Lymph % 28.7 % 10.0 - 58.5 Mid % 7.0 % 1.7 - 9.3 Neut % 64.3 % 37.0 - 92.0 Lymph # 1.1 x10*3/UL 0.6 - 4.1 Mid # 0.3 x10*3/UL 0.1 - 0.6 Neut # 2.5 x10*3/UL 2.0 - 7.8 Type & Screen -Incl Blood Type,Zhen,AB SC 11/15/[address] [address] [phone] Blood Type O POSITIVE Normal AB Screen (Indirect Adilia)Vis NEGATIVE Normal Total Iron Binding Capacit 11/15/[address] [id number] [phone] Iron (Fe) 103 g/dL Normal 50-170 Total Iron Binding Capacity 303 g/dL Normal 250-450 Percent Saturation 34.0 % Normal 13.2-45.0 Complete Blood Count 11/15/2020 [facility] Auto Machinist: [place] [address] [phone] WBC 4.0 x10*3/UL Low 4.1 - 10.9 [...] 2.0 - 7.8 Laboratory test finding 11/15/2020 [facility] stewart zamora Auto Machinist: [place] [address] [phone] Magnesium 1.5 mg/dL Low 1.8 - 2.4 Comprehensive Chem Profile 11/15/2020 [facility] Auto Machinist: [place] [address] [phone] Glucose 101 mg/dL High 74 - 99 4 BUN 9 mg/dL 7 - 18 Creatinine 0.9 mg/dL 0.6 - 1.3 Sodium 143 mEq/L 136 - 145 Potassium 4.4 mEq/L 3.5 - 5.1 Chloride 110 mEq/L High 98 - 107 Carbon Dioxide 29 mEq/L 21 - 32 Calcium 8.5 mg/dL 8.5 - 10.1 Alk. Phosphatase 271 mg/dL High 46 - 116 5 Total Bilirubin 1.4 mg/dL High 0.2 - 1.0 Ast (Sgot) 43 U/L High 15 - 37 Alt (SGPT) 28 U/L 12 - 78 Albumin 2.3 g/dL Low 3.4 - 5.0 Total Protein 6.2 g/dL Low 6.4 - 8.2 A/G Ratio 0.59 CALC Low 1.00 - 1.90 GFR 60 mL/min Low >60 GFR >= 60 mL/min >60 6 Cardiac Marker Panel 11/07/2020 [facility] enter [address] [place] [address] [phone] CPK Creatine Phosphokinase 105 U/L Normal 26-19 2 CK-MB Value Mass 1.2 NG/ML Normal <3.6 MB/CK Relative Index 1.14 Normal < Or =4 7 Troponin I < 0.02 NG/ML Normal < 0.10 8 Respiratory Panel 11/07/[address] [address] [phone] Respiratory Panel This respiratory <SEE NOTE> 9 Laboratory test finding 11/07/[address] [address] [phone] NT-Pro BNP 901 pg/mL High <450 Thyroid Stimulating Hormone < 0.005 uIU/ML Low 0.358-3.740 Basic Metabolic Profile 11/07/[address] [address] [phone] Glucose, Fasting 99 mg/dL Normal 70-100 Blood Urea Nitrogen 11 mg/dL Normal 7-18 Creatinine For GFR 0.82 mg/dL Normal 0.55-1.30 Glomerular Filtration Rate > 60.0 Normal >32 1 0 Sodium Level 140 mEq/L Normal 136-145 Potassium Serum 5.0 mEq/L Normal 3.5-5.1 Chloride Level 111 mEq/L High 98-107 Carbon Dioxide Level 27 mmol/L Normal 20-29 Anion Gap 2 mEq/L Low 8-16 Calcium Level 8.1 mg/dL Low 8.8-10.2 Liver Profile 11/07/[address] [address] [phone] Ast/Sgot 45 IU/L Normal Alt/SGPT 30 IU/L Normal 0-32 Alkaline Phosphatase 220 U/L High 45-117 Bilirubin,Total 1.6 mg/dL High 0.2-1.0 Bilirubin,Direct 0.6 mg/dL High 0.0-0.2 Total Protein 6.0 GM/DL Low 6.4-8.2 Albumin 2.2 GM/DL Low 3.2-5.2 Albumin/Globulin Ratio 0.6 Low 1.2-2.2 Venous Blood Gas 11/07/[address] [address] [phone] Venous PH 7.403 units Normal 7.330-7.430 Venous Partial Pressure Co2 45.9 mmHg Normal 38.0-50.0 Venous Partial Pressure O2 141.5 mmHg High 30.0-50.0 Venous Total Co2 29.4 mEq/L High 24.0-28.0 Venous Hco3 28.0 mEq/L High 23.0-27.0 Venous Base Excess 2.9 High -2.0-2.0 Venous Standard Hco3 27.1 mEq/L Normal Venous O2 Saturation 98.8 % High 60.0-80.0 Laboratory test finding 11/07/[address] [address] [phone] iSTAT Troponin 0.01 NG/ML Normal 0.00-0.08 Laboratory test finding 11/07/[address] [address] [phone] Immature Platelet Fraction 14.9 % High 0.0-9 .59 CBC With Differential 11/07/[address] [address] [phone] White Blood Count 4.2 10 Normal 4.0-10.0 [...] 36.0-66.0 Lymph % 22.1 % Low 24.0-44.0 Morrow % 18.8 % High 2.0-8.0 Eos % 5.5 % High 0.0-3.0 Baso % 0.2 % Normal 0.0-1.0 Immature Granulocyte % 0.2 % Normal 0-3.0 Nucleated Red Blood Cell % 0.0 % Normal 0-0 Neutrophils # 2.2 10 Normal 1.5-8.5 Lymph # 0.9 10 Low 1.5-5.0 Morrow # 0.8 10 Normal 0.0-0.8 Eos # 0.2 10 Normal 0.0-0.5 Baso # 0.0 10 Normal 0.0-0.2 Complete Blood Count 09/03/2020 [facility] Auto [employer]inist: [place] [address] [phone] WBC 3.7 x10*3/UL Low 4.1 - 10.9 11 RBC 3.53 x10*6/UL Low 4.20 - 6.30 [...] 2.0 - 7.8 Basic Metabolic Panel 09/03/2020 [facility]: [place] [address] [phone] Glucose 148 mg/dL High 74 - 99 12 BUN 6 mg/dL Low 7 - 18 Creatinine 0.9 mg/dL 0.6 - 1.3 Sodium 143 mEq/L 136 - 145 Potassium 4.1 mEq/L 3.5 - 5.1 Chloride 107 mEq/L 98 - 107 Carbon Dioxide 32 mEq/L 21 - 32 Calcium 8.3 mg/dL Low 8.5 - 10.1 GFR 60 mL/min Low >60 GFR >= 60 mL/min >60 13 Total Iron Binding Capacit 07/16/2020 [facility] ical Center [address] [place] [address] [phone] Iron (Fe) 64 g/dL Normal 50-170 Total Iron Binding Capacity 367 g/dL Normal 250-450 Percent Saturation 17.4 % Normal 13.2-45.0 Prothrombin Time/Inr 07/16/2020 [facility] [address] [place] [address] [phone] Prothrombin Time 16.9 seconds High 12.5-14.3 Inr 1.34 Normal 14 Laboratory test finding 07/16/2020 [facility] [address] [place] [address] [phone] Ammonia 64 uMOL/L High <32 Complete Blood Count 07/16/2020 [facility] [employer]ist: [place] [address] [phone] WBC 4.0 x10*3/UL Low 4.1 - 10.9 RBC 3.19 x10*6/UL Low 4.20 - 6.30 Hemoglobin 9.1 g/dL Low 12.0 - 18.0 Hematocrit 27.5 % Low 37.0 - 51.0 MCV 86.1 fL 80.0 - 97.0 MCH 28.4 pg 26.0 - 32.0 MCHC 33.0 g/dL 31.0 - 38.0 RDW 15.0 % High 11.6 - 13.7 PLT 53 x10*3/UL Low 140 - 440 15 MPV 10.5 FL 7.8 - 11.0 Lymph % 25.3 % 10.0 - 58.5 Mid % 7.4 % 1.7 - 9.3 Neut % 67.3 % 37.0 - 92.0 Lymph # 1.0 x10*3/UL 0.6 - 4.1 Mid # 0.3 x10*3/UL 0.1 - 0.6 Neut # 2.7 x10*3/UL 2.0 - 7.8 A1c 07/16/2020 [facility] Auto Machinist: [place] [address] [phone] Hba1c 5.5 % <5.7 16 Est Avg Glucose 111 mg/dL High 60 - 110 Comprehensive Chem Profile 07/16/2020 [facility] [employer]inist: [place] [address] [phone] Glucose 121 mg/dL High 74 - 99 17 BUN 8 mg/dL 7 - 18 Creatinine [...] Low >60 GFR >= 60 mL/min >60 18 Lipid Profile 07/16/2020 [facility] Hernandez [employer] Machinist: [place] [address] [phone] Cholesterol 97 mg/dL Low 131 - 200 Triglycerides 47 mg/dL 30 - 150 HDL Cholesterol 70 mg/dL High 35 - 60 LDL (Calculated) INVALID CALC 50 - 159 Laboratory test finding 07/16/2020 [facility] stew[facility] zamora Auto Machinist: [place] [address] [phone] Thyroid Stimulating Hormone 0.04 uIU/mL Low 0.3 6 - 3.74 1 ASSAY INFORMATION: Real Time RT-PCR NOTE: The COVID-19 assay has been cleared by the U.S. Food and Drug Administration under the Emergency Use Authorization (EUA). [facility] are designated as high complexity laboratories by the Clinical Laboratory Improvement Amendments of 1988(CLIA) and are qualified to perform this test. Not Detected 2 NOTE: RESULT VERIFIED. 3 NOTE: RESULT VERIFIED. 4 100-125 mg/dL PRE-DIABET ES/FASTING >126 mg/dL DIABETES/FASTING 5 NOTE: ALK PHOS,T.BILI,AST,ALBU,T.PROTEIN...VERIFIED 6 CHRONIC KIDNEY DISEASE STAGI NG PER NKF STAGE I & II GFR >= 60 NORMAL TO MILDLY DECREASED STAGE III GFR 30-59 MODERATELY DECREASED STAGE IV GFR 15-29 SEVERELY DECREASED STAGE V GFR <15 VERY LITTLE GFR LEFT ESRD GFR <15 ON TECHNICAL AGRONOMIST 7 DIAGNOSIS CRITERIA MMB ng/ml Relative Index (RI) NON-AMI < or = 5 N/A ZEPEDA ZONE > 5 < or = 4 AMI > 5 > 4 8 Troponin I Reference Interva l for [employer] LOCI: 99th Percentile= 0.00-0.045 ng/ml Risk Stratification: <= 0.10 ng/ml Decreased Risk for Adverse Clinical Events. 0.10-1.50 ng/ml Increased Risk for Adv erse Clinical Events. Evaluation of additional criterion and/or repeat testing in 2-6 hours is suggested to rule out myocardial damage. >= 1.50 ng/ml Indicative of Myocardial Injury. 9 This respiratory PCR panel d etects Influenza A H1, H3 and 2009 H1 viruses, Influenza B virus, Resp iratory Syncytial Virus, Human metapneumovirus, Parainfluenza virus 1, 2, 3 and 4, Adenovirus, Rhinovirus/Enterovirus, Coronavirus HKU1, NL63, OC43, 229E and SARS-CoV-2 (COVID 19), Bordetella pertussis, Bordetella parapertussis, Mycoplasma pneumoniae and Chlamydia pneumoniae. NEGATIVE by MULTIPLEXED NUCLEIC ACID PCR SARS-CoV-2 (COVID 19) NEGATIVE - SARS-CoV-2 (COVID19) 10 Units are mL/min/1.73 m2 Chronic Kidney Disease Staging per NKF: Stage I & II GFR >=60 Normal to Mildly Decreased Stage III GFR 30-59 Moderately Decreased Stage IV GFR 15-29 Severely Decreased Stage V GFR <15 Very Little GFR Left ESRD GFR <15 on TECHNICAL AGRONOMIST 11 NOTE: CBC AND PLATELET VEREIFIED 12 100-125 mg/dL PRE-DIABET ES/FASTING >126 mg/dL DIABETES/FASTING 13 CHRONIC KIDNEY DISEASE STAGI NG PER NKF STAGE I & II GFR >= 60 NORMAL TO MILDLY DECREASED STAGE III GFR 30-59 MODERATELY DECREASED STAGE IV GFR 15-29 SEVERELY DECREASED STAGE V GFR <15 VERY LITTLE GFR LEFT ESRD GFR <15 ON TECHNICAL AGRONOMIST 14 THERAPUTIC HUMAN INR VALUES INDICATIONS NORMAL RANGES PROPHYLAXIS/TREATMENT OF: VENOUS THROMBOSIS 2.0-3.0 PULMONARY EMBOLISM 2.0-3.0 PREVENTION OF SYSTEMIC EMBOLISM FROM: TISSUE HEART VALVES 2.0-3.0 ACUTE MYOCARDIAL INFARCTION 2.0-3.0 VALVULAR HEART DISEASE 2.0-3.0 ATRIAL FIBRILLATION 2.0-3.0 MECHANICAL VALVES(HIGH RISK) 2.5-3.5 RECURRENT MYOCARDIAL INFARCTION 2.5-3.5 15 NOTE: RESULT VERIFIED. 16 Lab Result Notes: Pre-Diabetes 5.7 - 6.4 % Diabetes = or > 6.5% 17 100-125 mg/dL PRE-DIABET ES/FASTING >126 mg/dL DIABETES/FASTING 18 CHRONIC KIDNEY DISEASE STAGI NG PER NKF STAGE I & II GFR >= 60 NORMAL TO MILDLY DECREASED STAGE III GFR 30-59 MODERATELY DECREASED STAGE IV GFR 15-29 SEVERELY DECREASED STAGE V GFR <15 VERY LITTLE GFR LEFT ESRD GFR <15 ON TECHNICAL AGRONOMIST Procedures Date Code Description Status 11/15/2020 10140 Trans Care SRV W/I 14D Of DC, Co mm W/I 2 Dys Med Rec Completed 09/03/2020 65666 Aparicio Cre SRV W/I 7 Days Of DC, C omm W/I 2 Dys Med Rec Completed 07/16/2020 19195 Office/Outpatient Established Mo d MDM 30-39 Min Completed 05/09/2018 [id number] Diabetic Retinal Eye Exam [facility] 04/18/2018 [id number] Diabetic Retinal Eye Exam [facility] 10/26/2017 [id number] Colonoscopy Completed 04/13/2016 [id number] Diabetic Retinal Eye Exam [facility] 03/25/2016 [id number] Diabetic Retinal Eye Exam [facility] 03/19/2016 [id number] Diabetic Retinal Eye Exam [facility] Medical Devices Description No Information Available Encounters Type Date Location Provider Dx Diagnosis Office Visit 11/15/2020 8:40a [facility] 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
--- OUTSIDE RECORDS SUMMARY | 2020-12-18 12:45 | CCD | Continuity of Care Document ---
Author Organization Unknown Address Unknown Phone Unavailable Care Team Providers Care Communications Professor Name Role Phone Kar Ebonyrl GRAHAM AUTM [phone] Austin Rashid MD AUTM [phone] Sarahi Rojas MD AUTM [phone] Hector Barrow JR, MD AUTM Unavailable Maty Carpentermarcial AUTM [phone] Problems Active Problems Provider Date Type 2 [...] CPT Code Status Date Vaccine Lot # 21117 Given 11/29/2020 Influenza Vaccin e Quadrivalent Preser/Antibiotic Free Im Use 120501 U-Flu Given 11/16/2019 Influenza,Unspecified 32455 Given 11/16/2019 Shingrix Zoster Vaccine (HZV), Recombinant, Subunit, Adjuvanted 35724 Given 01/19/2017 Influenza Vaccin e Quadrivalent Preser/Antibiotic Free Im Use 700859 68365 Given 07/17/2016 Pneumovax 23 [id number] Given 12/19/2015 Prevnar 13 [id number] Given 12/02/2015 Fluvirin Virus Vaccine 28614 01 Vital Signs Date Vital Result Comment [...] H/L Range Note Laboratory test finding 12/11/2020 [facility] [address], [place] [id number] [phone] Immature Platelet Fraction 12.3 % High 0.0-9 .59 Complete Blood Count 12/11/2020 [facility] [address] [place], [place] [address] [phone] White Blood Count 4.9 10 Normal 4.0-10.0 [...] % Normal 0-0 Coronavirus 2019 Nasopharygeal 12/06/2020 [facility] [address] [place] [address] [phone] Coronavirus 2019 Nasopharygeal ASSAY INFORMATIO <SEE N OTE> 1 Complete Blood Count 11/29/2020 [facility] Insole Cementer: [place] [address] [phone] WBC 3.7 x10*3/UL Low 4.1 - 10.9 [...] 2.0 - 7.8 Complete Blood Count 11/22/2020 [facility] Insole Cementer: [place] [address] [phone] WBC 3.9 x10*3/UL Low 4.1 - 10.9 [...] & Screen -Incl Blood Type,Zhen,AB SC 11/15/2020 [place] [id number] [phone] Blood Type O POSITIVE Normal AB Screen (Indirect Adilia)Vis NEGATIVE Normal Total Iron Binding Capacit 11/15/[address] [address] [phone] Iron (Fe) 103 g/dL Normal 50-170 Total Iron Binding Capacity 303 g/dL Normal 250-450 Percent Saturation 34.0 % Normal 13.2-45.0 Complete Blood Count 11/15/2020 [facility] Insole Cementer: [place] [address] [phone] WBC 4.0 x10*3/UL Low 4.1 - 10.9 [...] 2.0 - 7.8 Laboratory test finding 11/15/2020 [facility] In[facility] Cementer: [place] [address] [phone] Magnesium 1.5 mg/dL Low 1.8 - 2.4 Comprehensive Chem Profile 11/15/2020 [facility] In[facility] Cementer: [place] [address] [phone] Glucose 101 mg/dL High 74 - 99 [...] mL/min >60 6 Cardiac Marker Panel 11/07/2020 [facility] enter [address] [place] [address] [phone] CPK Creatine Phosphokinase 105 U/L Normal 26-19 2 CK-MB Value Mass 1.2 NG/ML Normal <3.6 MB/CK Relative Index 1.14 Normal < Or =4 7 Troponin I < 0.02 NG/ML Normal < 0.10 8 Respiratory Panel 11/07/2020 [facility] n[facility] [address] [place], [place] [id number] [phone] Respiratory Panel This respiratory <SEE NOTE> 9 Laboratory test finding 11/07/[address] [address] [phone] NT-Pro BNP 901 pg/mL High <450 Thyroid Stimulating Hormone < 0.005 uIU/ML Low 0.358-3.740 Basic Metabolic Profile 11/07/[address] [address] [phone] Glucose, Fasting 99 mg/dL Normal 70-100 Blood [...] 8.1 mg/dL Low 8.8-10.2 Liver Profile 11/07/2020 [facility] nter [address] [place] [address] [phone] Ast/Sgot 45 IU/L Normal Alt/SGPT 30 IU/L Normal 0-32 Alkaline Phosphatase 220 U/L High 45-117 Bilirubin,Total 1.6 mg/dL High 0.2-1.0 Bilirubin,Direct 0.6 mg/dL High 0.0-0.2 Total Protein 6.0 GM/DL Low 6.4-8.2 Albumin 2.2 GM/DL Low 3.2-5.2 Albumin/Globulin Ratio 0.6 Low 1.2-2.2 Venous Blood Gas 11/07/2020 [facility] [address] [place] [address] [phone] Venous PH 7.403 units Normal 7.330-7.430 Venous Partial Pressure Co2 45.9 mmHg Normal 38.0-50.0 Venous Partial Pressure O2 141.5 mmHg High 30.0-50.0 Venous Total Co2 29.4 mEq/L High 24.0-28.0 Venous Hco3 28.0 mEq/L High 23.0-27.0 Venous Base Excess 2.9 High -2.0-2.0 Venous Standard Hco3 27.1 mEq/L Normal Venous O2 Saturation 98.8 % High 60.0-80.0 Laboratory test finding 11/07/[address] [address] [phone] iSTAT Troponin 0.01 NG/ML Normal 0.00-0.08 Laboratory test finding 11/07/[address] [address] [phone] Immature Platelet Fraction 14.9 % High 0.0-9 .59 CBC With Differential 11/07/[address] [address] [phone] White Blood Count 4.2 10 Normal 4.0-10.0 [...] 36.0-66.0 Lymph % 22.1 % Low 24.0-44.0 [place] % 18.8 % High 2.0-8.0 Eos % 5.5 % High 0.0-3.0 Baso % 0.2 % Normal 0.0-1.0 Immature Granulocyte % 0.2 % Normal 0-3.0 Nucleated Red Blood Cell % 0.0 % Normal 0-0 Neutrophils # 2.2 10 Normal 1.5-8.5 Lymph # 0.9 10 Low 1.5-5.0 [place] # 0.8 10 Normal 0.0-0.8 Eos # 0.2 10 Normal 0.0-0.5 Baso # 0.0 10 Normal 0.0-0.2 Complete Blood Count 09/03/2020 [facility] Insole Cementer: Dr Hector Barrow [place], [place] [id number] [phone] WBC 3.7 x10*3/UL Low 4.1 - 10.9 [...] 2.0 - 7.8 Basic Metabolic Panel 09/03/2020 [facility] Cementer: [place] [address] [phone] Glucose 148 mg/dL High 74 - 99 [...] >60 13 Total Iron Binding Capacit 07/16/2020 [facility] [address] [place], [place] [id number] [phone] Iron (Fe) 64 g/dL Normal 50-170 Total Iron Binding Capacity 367 g/dL Normal 250-450 Percent Saturation 17.4 % Normal 13.2-45.0 Prothrombin Time/Inr 07/16/2020 [facility] [address] [place] [address] [phone] Prothrombin Time 16.9 seconds High 12.5-14.3 Inr 1.34 Normal 14 Laboratory test finding 07/16/2020 [facility] [address] [place] [address] [phone] Ammonia 64 uMOL/L High <32 Complete Blood Count 07/16/2020 [facility] Insole Cementer: [place] [address] [phone] WBC 4.0 x10*3/UL Low 4.1 - 10.9 [...] 2.7 x10*3/UL 2.0 - 7.8 A1c 07/16/2020 [facility] Insole Cementer: [place] [address] [phone] Hba1c 5.5 % <5.7 16 Est Avg Glucose 111 mg/dL High 60 - 110 Comprehensive Chem Profile 07/16/2020 [facility] Cementer: [place] [address] [phone] Glucose 121 mg/dL High 74 - 99 [...] 60 mL/min >60 18 Lipid Profile 07/16/2020 [facility] In[facility] Cementer: [place] [address] [phone] Cholesterol 97 mg/dL Low 131 - 200 Triglycerides 47 mg/dL 30 - 150 HDL Cholesterol 70 mg/dL High 35 - 60 LDL (Calculated) INVALID CALC 50 - 159 Laboratory test finding 07/16/2020 [facility] Insole Cementer: [place] [address] [phone] Thyroid Stimulating Hormone 0.04 uIU/mL Low 0.3 6 - 3.74 1 ASSAY INFORMATION: Real Time RT-PCR NOTE: The COVID-19 assay has been cleared by the U.S. Food and Drug Administration under the Emergency Use Authorization (EUA). [facility] are designated as high complexity laboratories by [...] LITTLE GFR LEFT ESRD GFR <15 ON CERTIFIED TEACHER ASSISTANT 7 DIAGNOSIS CRITERIA MMB ng/ml Relative Index (RI) NON-AMI < or = 5 N/A ZEPEDA ZONE > 5 < or = 4 AMI > 5 > 4 8 Troponin I Reference Interva l for [email or web address] LOCI: 99th Percentile= 0.00-0.045 ng/ml Risk Stratification: [...] Little GFR Left ESRD GFR <15 on CERTIFIED TEACHER ASSISTANT 11 NOTE: CBC AND PLATELET VEREIFIED 12 100-125 mg/dL PRE-DIABET ES/FASTING >126 mg/dL DIABETES/FASTING 13 CHRONIC KIDNEY DISEASE STAGI NG PER NKF STAGE I & II GFR >= 60 NORMAL TO MILDLY DECREASED STAGE III GFR 30-59 MODERATELY DECREASED STAGE IV GFR 15-29 SEVERELY DECREASED STAGE V GFR <15 VERY LITTLE GFR LEFT ESRD GFR <15 ON CERTIFIED TEACHER ASSISTANT 14 THERAPUTIC HUMAN INR VALUES INDICATIONS NORMAL [...] LITTLE GFR LEFT ESRD GFR <15 ON CERTIFIED TEACHER ASSISTANT Procedures Date Code Description Status 11/15/2020 28313 Trans Care SRV W/I 14D Of DC, Co mm W/I 2 Dys Med Rec Completed 09/03/2020 46512 Aparicio Cre SRV W/I 7 Days Of DC, C omm W/I 2 Dys Med Rec Completed 07/16/2020 65428 Office/Outpatient Established Mo d MDM 30-39 Min Completed 05/09/2018 275444713 Diabetic Retinal Eye Exam Comple symone 04/18/2018 [id number] Diabetic Retinal Eye Exam Comple symone 10/26/2017 17319692 Colonoscopy Completed 04/13/2016 [id number] Diabetic Retinal Eye Exam Comple symone 03/25/2016 915650909 Diabetic Retinal Eye Exam Comple symone 03/19/2016 590197164 Diabetic Retinal Eye Exam Comple [facility] Medical Devices Description No Information Available Encounters Type Date Location Provider Dx Diagnosis Office Visit 11/15/2020 8:40a [facility] Hector Barrow MD K31.811 Angiodysplasia [...] polyneuropathy E83.42 Hypomagnesemia Office Visit 09/03/2020 10[facility] K31.811 Angiodysplasia of stomach [...] E03.9 Hypothyroidism, unspecified Office Visit 07/16/2020 1:00p [facility], Sammy Barrow MD J44.9 Chronic obstructive pulmonary disease, [...] 09/03/2020 I25.10 Atherosclerotic hear t disease of [place] coronary artery without angina pectoris ELMO Felix [...] 07/16/2020 I25.10 Atherosclerotic hear t disease of [place] coronary artery without angina pectoris Hector Barrow [...] 2:00 pm - Hector Barrow MD at [facility] 07/16/2020 - Hector Barrow MD* J44.9 Chronic obstructive pulmonary disease, unspecified * J96.11 Chronic respiratory failure with hypoxia * Z99.81 Dependence on supplemental oxygen * I35.0 Nonrheumatic aortic (valve) stenosis * I25.10 Atherosclerotic heart disease of [place] coronary artery without angina pectoris * K92.2 [...]
--- OUTSIDE RECORDS SUMMARY | 2020-12-18 12:45 | CCD | Continuity of Care Document ---
Author Author Marielena RICO M.D. Organization Unknown Address [address] [place] [address] Phone [phone] Care Team Providers Care Meat Lugger Name Role Phone Hector Barrow M.D. AUTM [phone] Problems Active Problems Provider Date Upper gastrointestinal [...] SIG Qnty Indications Ordering Provide r Date Carafate 1gm Tablets 1 tab by mouth twice a day 60tabs Nitin Rico M.D. [address] 1 by mouth b.i.dEsther 30caps Hector Barrow M.D. 0 Albuterol Sulfate [...] One Tablet By Mouth Every Night Unknown Xifaxan 550mg Tablets 1 b.i.d . 60tabs [...] Index) 37.5 kg/m2 Weight 92.988 kg Results Test Acquired Date Facility Test Result H/L Range Note Complete Blood Count 12/11/2020 [facility] [address] [place] [address] White Blood Count 4.9 10 Normal 4.0-10.0 1 Red Blood Count 3.09 10 Low 4.00-5.40 Hemoglobin 9.7 g/dL Low 12.0-15.5 Hematocrit 31.0 % Low 36.0-47.0 Mean Corpuscular Volume 100.3 fl High 80.0-96.0 Mean Corpuscular Hemoglobin 31.4 pg Normal 27.0-33.0 Mean Corpuscular HGB Conc 31.3 g/dL Low 32.0-36.5 Red Cell Distribution Width 18.6 % High 11.5-14.5 Platelet Count, Automated 64 10 Low 150-450 Nucleated Red Blood Cell % 0.0 % Normal 0-0 Laboratory test finding 12/11/2020 [facility] [address] [place] [address] Immature Platelet Fraction 12.3 % High 0.0-9.59 1 improved from labs in July ee in office in 6 weeks Procedures Date Code Description Status 11/26/2020 55752 Office/Outpatient New Low MDM 30 -44 Minutes Completed Medical Devices Description No Information Available Encounters Type Date Location Provider Dx Diagnosis Office Visit 11/26/2020 2:00p Main Office Nitin Rico M.D. D 64.9 Anemia, unspecified Assessments Date Code Description Provider 11/26/2020 D64.9 Anemia Nitin hayes M.D. Plan of Treatment 11/26/2020 - Nitin Rico M.D.* D64.9 Anemia* [...]
--- OUTSIDE RECORDS SUMMARY | 2020-12-18 12:45 | CCD | Continuity of Care Document ---
Author Author Marielena RICO M.D. Organization Unknown Address [address] [place] [address] Phone [phone] Care Team Providers Care Transmission Inspector Name Role Phone Hector Barrow M.D. AUTM [phone] Problems Active Problems Provider Date Upper gastrointestinal [...] H/L Range Note Complete Blood Count 12/11/2020 [facility] [address] [place] [address] White Blood Count 4.9 10 Normal 4.0-10.0 [...] % Normal 0-0 Laboratory test finding 12/11/2020 [facility] [address] [place] [address] Immature Platelet Fraction 12.3 % High 0.0-9.59 1 improved from labs in July s ee in office in 6 weeks Procedures Date Code Description Status 12/11/2020 33406 Endoscopy Upper GI Control Hemor rhage Completed 11/26/2020 70870 Office/Outpatient New Low MDM 30 -44 Minutes Completed Medical Devices Description No Information Available Encounters Type Date Location Provider Dx Diagnosis Office Visit 11/26/2020 2:00p Main Office Nitin Rico M.D. D 64.9 Anemia, unspecified Assessments Date Code Description Provider 12/11/2020 D64.9 Anemia, unspecified Nitin byrne M.D. 12/11/2020 K31.89 Other diseases of stomach and du odenum Nitin Rico M.D. 12/11/2020 K44.9 Diaphragmatic hernia without obs truction or gangrene Nitin Rico M.D. 11/26/2020 D64.9 Anemia Nitin hayes M.D. Plan [...]
--- OUTSIDE RECORDS SUMMARY | 2020-12-18 12:45 | CCD | Continuity of Care Document ---
Author Author Marielena RICO M.D. Organization Unknown Address [address] [place] [address] Phone [phone] Care Team Providers Care Supervisor Hand Silvering Name Role Phone Hector Barrow M.D. AUTM [phone] Problems Active Problems Provider Date Upper gastrointestinal [...] H/L Range Note Complete Blood Count 12/11/2020 [facility] [address] [place] [address] White Blood Count 4.9 10 Normal 4.0-10.0 [...] % Normal 0-0 Laboratory test finding 12/11/2020 [facility] [address] [place] [address] Immature Platelet Fraction 12.3 % High 0.0-9.59 1 improved from labs in July ee in office in 6 weeks Procedures Date Code Description Status 11/26/2020 86037 Office/Outpatient New Low MDM 30 -44 Minutes [...]
--- OUTSIDE RECORDS SUMMARY | 2020-12-18 12:47 | CCD ---
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 Name Role Phone Dhruv Rico MD Unavailable [...] Unavailable Unavailable Glenroy Barrow MD Unavailable Unavailable FessendenGlenroy hooper MD Unavailable Unavailable Glenroy Barrow MD Unavailable Unavailable Glenroy Barrow MD Unavailable Unavailable Glenroy Barrow MD Unavailable Unavailable Glenroy Barrow MD Unavailable Unavailable Glenroy Barrow MD Unavailable Unavailable FessendenGlenroy hooper MD Unavailable Unavailable FessendenGlenroy hooper MD Unavailable Unavailable PushpaGlenroy hooper MD Unavailable Unavailable PushpaGlenroy MD Unavailable Unavailable PushpaGlenroy MD Unavailable Unavailable FessendenGlenroy MD Unavailable Unavailable FessendenGlenroy MD Unavailable Unavailable FessendenGlenroy MD Unavailable Unavailable FessendenGlenroy MD Unavailable Unavailable PushpaGlenroy MD Unavailable Unavailable PushpaGlenroy MD Unavailable Unavailable FessendenGlenroy MD Unavailable Unavailable FessendenGlenroy MD Unavailable Unavailable PushpaGlenroy MD Unavailable Unavailable PushpaGlenroy MD Unavailable Unavailable FessendenGlenroy MD Unavailable Unavailable FessendenGlenroy MD Unavailable Unavailable FessendenGlenroy MD Unavailable Unavailable PushpaGlenroy MD Unavailable Unavailable PushpaGlenroy MD Unavailable Unavailable FessendenGlenroy MD Unavailable Unavailable FessendenGlenroy MD Unavailable Unavailable PushpaGlenroy MD Unavailable Unavailable FessendenGlenroy MD Unavailable Unavailable PushpaGlenroy MD Unavailable Unavailable FessendenGlenroy MD Unavailable Unavailable FessendenGlenroy MD Unavailable Unavailable FessendenGlenroy MD Unavailable Unavailable FessendenGlenroy MD Unavailable Unavailable FessendenGlenroy MD Unavailable Unavailable FessendenGlenroy MD Unavailable Unavailable FessendenGlenroy MD Unavailable Unavailable PushpaGlenory MD Unavailable Unavailable FessendenGlenroy MD Unavailable Unavailable FessendenGlenroy MD Unavailable Unavailable PushpaGlenroy MD Unavailable Unavailable PushpaGlenroy MD Unavailable Unavailable PushpaGlenroy MD Unavailable Unavailable PushpaGlenroy MD Unavailable Unavailable FessendenGlenroy MD Unavailable Unavailable FessendenGlenroy MD Unavailable Unavailable FessendenGlenroy MD Unavailable Unavailable FessendenGlenroy MD Unavailable Unavailable PushpaGlenroy MD Unavailable Unavailable FessendenGlenroy MD Unavailable Unavailable PushpaGlenroy MD Unavailable Unavailable PushpaGlenroy MD Unavailable Unavailable FessendenGlenroy MD Unavailable Unavailable PushpaGlenroy MD Unavailable Unavailable FessendenGlenroy MD Unavailable Unavailable PushpaGlenroy MD Unavailable Unavailable FessendenGlenroy MD Unavailable Unavailable FessendenGlenroy MD Unavailable Unavailable FessendenGlenroy MD Unavailable Unavailable FessendenGlenroy MD Unavailable Unavailable FessendenGlenroy MD Unavailable Unavailable FessendenGlenroy MD Unavailable Unavailable FessendenGlenroy MD Unavailable Unavailable PushpaGlenroy Young MD Unavailable Unavailable Glenroy Barrow MD [...] (Roman) MD Unavailable Unavailable Tin Allie Ashwin (Orman) MD Unavailable Unavailable Tin Allie Ashwin (Roman) [...] PICKERAL JR, Rakel LEMUS PA-C Unavailable Unavailable PICKERAL JR, Rakel LEUMS PA-C Unavailable Unavailable El-Khally, A Ziad MD [...] Unavailable El-Khally, A Ziad MD Unavailable Unavailable FessendenGlenroy MD Unavailable Unavailable FessendenGlenroy MD Unavailable Unavailable PushpaGlenroy MD Unavailable Unavailable PushpaGlenroy MD Unavailable Unavailable FessendenGlenroy MD Unavailable Unavailable PushpaGlenroy MD Unavailable Unavailable PushpaGlenroy MD Unavailable Unavailable FessendenGlenroy MD Unavailable Unavailable PushpaGlenroy MD Unavailable Unavailable PushpaGlenroy MD Unavailable Unavailable PushpaGlenroy MD Unavailable Unavailable PushpaGlenroy MD Unavailable Unavailable FessendenGlenroy MD Unavailable Unavailable FessendenGlenroy MD Unavailable Unavailable FessendenGlenroy MD Unavailable Unavailable FessendenGlenroy MD Unavailable Unavailable PushpaGlenroy MD Unavailable Unavailable FessendenGlenroy MD Unavailable Unavailable FessendenGlenroy MD Unavailable Unavailable PushpaGlenroy MD Unavailable Unavailable PushpaGlenroy MD Unavailable Unavailable FessendenGlenroy MD Unavailable Unavailable PushpaGlenroy MD Unavailable Unavailable PushpaGlenroy MD Unavailable Unavailable PushpaGlenroy MD Unavailable Unavailable PushpaGlenroy MD Unavailable Unavailable PushpaGlenroy MD Unavailable Unavailable FessendenGlenroy MD Unavailable Unavailable PushpaGlenroy MD Unavailable Unavailable PushpaGlenroy MD Unavailable Unavailable FessendenGlenroy MD Unavailable Unavailable FessendenGlenroy MD Unavailable Unavailable PushpaGlenroy MD Unavailable Unavailable PushpaGlenroy MD Unavailable Unavailable PushpaGlenroy MD Unavailable Unavailable PushpaGlenroy hooper MD Unavailable Unavailable PushpaGlenroy MD Unavailable Unavailable PushpaGlenroy MD Unavailable Unavailable PushpaGlenroy hooper MD Unavailable Unavailable PushpaGlenroy MD Unavailable Unavailable PushpaGlenroy MD Unavailable Unavailable PushpaGlenroy hooper MD Unavailable Unavailable PushpaGlenroy hooper MD Unavailable Unavailable PushpaGlenroy MD Unavailable Unavailable FessendenGlenroy MD Unavailable Unavailable FessendenGlenroy MD Unavailable Unavailable FessendenGlenroy MD Unavailable Unavailable PushpaGlenroy MD Unavailable Unavailable FessendenGlenroy MD Unavailable Unavailable PushpaGlenroy MD Unavailable Unavailable PushpaGlenroy MD Unavailable Unavailable FessendenGlenroy MD Unavailable Unavailable PushpaGlenroy MD Unavailable Unavailable FessendenGlenroy MD Unavailable Unavailable PushpaGlenroy MD Unavailable Unavailable FessendenGlenroy MD Unavailable Unavailable PushpaGlenroy hooper MD Unavailable Unavailable FessendenGlenroy MD Unavailable Unavailable FessendenGlenroy MD Unavailable Unavailable FessendenGlenroy MD Unavailable Unavailable PushpaGlenroy MD Unavailable Unavailable FessendenGlenroy MD Unavailable Unavailable PushpaGlenroy MD Unavailable Unavailable PushpaGlenroy MD Unavailable Unavailable PushpaGlenroy MD Unavailable Unavailable PushpaGlenroy MD Unavailable Unavailable FessendenGlenroy MD Unavailable Unavailable PushpaGlenroy MD Unavailable Unavailable FessendenGlenroy MD Unavailable Unavailable PushpaGlenroy MD Unavailable Unavailable FessendenGlenroy hooper MD Unavailable Unavailable FessendenGlenroy hooper MD Unavailable Unavailable PushpaGlenroy hooper MD Unavailable Unavailable FessendenGlenroy hooper MD Unavailable Unavailable PushpaGlenroy hooper MD Unavailable Unavailable PushpaGlenroy hooper MD Unavailable Unavailable PushpaGlenroy hooper MD Unavailable Unavailable FessendenGlenroy hooper MD Unavailable Unavailable PushpaGlenroy hooper MD Unavailable Unavailable FessendenGlenroy hooper MD Unavailable Unavailable PushpaGlenroy hooper MD Unavailable Unavailable FessendenGlenroy hooper MD Unavailable Unavailable FessendenGlenroy hooper MD Unavailable Unavailable FessendenGlenroy hooper MD Unavailable Unavailable FessendenGlenroy hooper MD Unavailable Unavailable PushpaGlenroy hooper MD Unavailable Unavailable Monica Carpenter MD [...] Carpenterjtech Unavailable Unavailable Keo Carpenterjtech Unavailable Unavailable Maty Carpentertech Unavailable Unavailable Slezka Vojtech Unavailable Unavailable Slezka, Vojtech Unavailable Unavailable Slezka, [...] is protected by Article 27-F of the [facility] Public Health law. If you continue you may have access to information: Regarding HIV / AIDS; Provided by facilities licensed or operated by the [facility] Office of Mental Health; or Provided by the [facility] Office for People With Developmental Disabilities. If such information is present, then the following [facility] mandated warning applies: This information has [...] law may result in a fine or chcf sentence or both. A general authorization for the release of medical or other information is NOT sufficient authorization for further disc losure. Family History Family Member Name Family Member Gender Family Member Status Date o f Status Description Data Source(s) Unknown Male Condition [facility] Unknown Male Condition [facility] Unknown Male Condition [facility] Unknown Unknown Problem [facility] ([facility]) Unknown Unknown Problem [facility]) Unknown [facility] () Unknown Male Problem [facility] ([facility]) Encounters Encounter Providers Location Date Indications Data Source(s ) Outpatient Attender: Nitin Rico MD Main Office 11/26/2020 02:00:00 PM EDT [facility] ([facility]) Outpatient Attender: Hector Oleary 0 11/15/2020 08:40:00 AM EDT [facility] ([facility] ) Outpatient Attender: ALLAN Oleary 0 09/03/2020 10:20:00 AM EDT [facility] ([facility] ) Outpatient Attender: Hector Oleary 0 07/16/2020 01:00:00 PM EDT [facility] ([facility] ) Outpatient Attender: Monica MOORE.ANURAG-SJYesenia.ANURAG 06/23 12:00:00 AM EDT - 07/15/2020 03:29:01 PM EDT [facility] Attender: Allie Christopher TinReferrer: Hector Barrow MD 07/04/2020 08:21:05 PM EDT [facility] Out[facility] Attender: Paul More MDAdmitter: Paul chanel MD ES1-SJ.CVAU 06/14/2020 06:07:00 AM EDT - 06/14/2020 02:29:00 PM EDT [facility] Patient discharged. Outpatient Attender: Monica Carpenter MD SJDaisyANURAG-SJP.ANURAG 05/23 01:33:06 PM EDT - 06/04/2020 02:34:25 PM EDT [facility] Outpatient Attender: Monica Carpenter MD SJDaisyANURAG-SJP.ANURAG 03/2020 12:00:00 AM EST - 04/23/2020 03:25:37 PM EST [facility] Outpatient Attender: Hector Barrow Vandewall 1 02:45:00 PM EDT [facility] ([facility] ) Outpatient Referrer: Monica SIGALAANURAG-SJP.ANURAG 10/24 12:00:00 AM EDT - 11/13/2019 02:54:55 PM EDT [facility] Outpatient Attender: Monica Carpenter MDReferrer: Maty SIGALAANURAG-SJP.ANURAG 11/13/2019 12:00:00 AM EDT - 11/13/2019 02:56:16 PM EDT [facility] Attender: Allie Christensen (Jack) MDReferrer: Jameson Barrow MD 10/20/2019 08:20:08 PM EDT [facility] Referrer: Hector Barrow MD 10/20/2019 08:20:0 8 PM EDT [facility] Immunizations Vaccine Date Status Description Data Source(s) Influenza, injectable, MDCK, preservative free, reynold valent 11/29/2020 11:39:00 AM EDT completed [facility] ([facility]) COVID-19 VACCINE Moderna 05/30/2020 12:00:00 AM EDT completed [facility] Vaccine Series Complete: YESThis Data wa s Submitted to [facility] Via [employer]. COVID-19 VACCINE Moderna 05/02/2020 12:00:00 AM EST completed [facility] Vaccine Series Complete: NOThis Data was Submitted to [facility] [employer]. Shingrix Zoster Vaccine (HZV), Recombinant, Subunit, A djuvanted 11/16/2019 08:34:00 AM EDT completed [facility] ([facility]) This CVX code allows reporting of a vacc ination when formulation is unknown (for example, when recording a Influenza vaccination when noted on a vaccination card) 11/16/2019 08:34:00 AM EDT completed [facility]AMIREN T ([facility]) VARICELLA-ZOSTER [id number]/PF 11/16/2019 12:00:00 AM EDT completed [facility] FLU VACCINE QUADRIV (4 YEARS AND OLDER)CELL D ERIVED 11/16/2019 12:00:00 AM EDT completed [facility] Medications Medication Brand Name Start Date Product Form Dose Route Admi nistrative Instructions Pharmacy Instructions Status Indications Reaction Description Data Source(s) Sucralfate 1000 MG Oral Tablet [Carafate] Carafate 12/11/2020 1 2:00:00 AM EDT ORAL active [facility] ([facility]) 1 gram 12/11/2020 12:00:00 AM EDT tablet 60 TAKE ONE TABLET BY MOUTH TWICE A DAY TAKE ONE TABLET BY MOUTH TWICE A DAY SOLD: 12/11/2020 [facility] Administration Of Flu Vaccine 11/29/2020 12:00:00 AM EDT completed [facility] ([facility]) Medication administered onsite 62.5 mcg/actuation 11/23/2020 12:00:00 [...] TABLET BY MOUTH EVERY EVENING SOLD: 11/19/2020 [facility] 2.5 mg /3 mL (0.083 %) [...] 12:00:00 AM EDT ORAL active [facility] ([facility]) 25 mg 11/06/2020 12:00:00 AM [...] MOUTH TWO TIMES A DAY SOLD: 10/03/2020 [facility] Potassium Chloride 10 MEQ Extended [...] TABLET BY MOUTH TWICE A DAY SOLD: 12/15/2020 [facility] 550 mg 09/13/2020 12:00:00 AM EDT tablet 60 TAKE ONE TABLET BY MOUTH TWICE A DAY TAKE ONE TABLET BY MOUTH TWICE A DAY SOLD: 09/19/2020 [facility] 550 mg 09/13/2020 12:00:00 AM EDT tablet 60 TAKE ONE TABLET BY MOUTH TWICE A DAY TAKE ONE TABLET BY MOUTH TWICE A DAY SOLD: 10/16/2020 [facility] 550 mg 09/13/2020 12:00:00 AM [...] TIMES A DAY NEEDED SOLD: 09/04/2020 [facility] pantoprazole 40 MG Delayed Release Oral [...] BY MOUTH EVERY DAY SOLD: 11/01/2020 [facility] atorvastatin 10 MG Oral Tablet ATORVASTATIN CALCIUM 07/17/2020 1 2:00:00 AM EDT tablet 90 TAKE ONE TABLET BY MOUTH EVERY D AY TAKE ONE TABLET BY MOUTH EVERY DAY SOLD: 07/23/2020 [facility] 2.5 mg 07/17/2020 12:00:00 AM EDT tablet 90 TAKE ONE TABLET BY MOUTH EVERY DAY TAKE ONE TABLET BY MOUTH EVERY DAY SOLD: 07/23/2020 [facility] 2.5 mg 07/17/2020 12:00:00 AM EDT tablet 90 TAKE ONE TABLET BY MOUTH EVERY DAY TAKE ONE TABLET BY MOUTH EVERY DAY SOLD: 11/19/2020 [facility] 25 mg 07/17/2020 12:00:00 AM EDT tablet 60 TAKE ONE-HALF TABLET BY MOUTH TWICE A DAY TAKE ONE-HALF TABLET BY MOUTH TWICE A DAY SOLD: 07/23/2020 [facility] pantoprazole 40 MG Delayed Release Oral Tablet PANTOPRAZOLE SODIUM 07/16/2020 12:00:00 AM EDT tablet,delayed release (DR/EC) 90 T DEBORAH ONE TABLET BY MOUTH TWICE A DAY TAKE ONE TABLET BY MOUTH TWICE A DAY SOLD: 07/16/2020 [facility] normal saline flush 0.9 % injection 3 mL 05117-706-97 06/14/2020 02:00:00 PM EDT 3 mL Intravenous active 3 mL , Intravenous, PROTOCOL, First dose on Wed06/14/20 at 1400, Pre-op
flush per protocol, D/C Main IV fluid if appropriate
[facility] Medication administered onsite iopamidol (ISOVUE-370) 76 % [id number] 06/14/2020 09:42:18 AM EDT active As needed, Starting on Wed06/14/20 at 0942, Intra-Proc edure [facility] Medication administered onsite 1 ML heparin sodium, porcine 1000 UNT/ML Injection hep vel (porcine) injection heparin (porcine) injection 06/14/2020 09:23:11 AM EDT active As needed, Starting on Wed06/14/20 at 0923, Intra-Procedure [facility] Medication administered onsite 4 ML Verapamil hydrochloride 2.5 MG/ML Injection verap marcus (ISOPTIN) injection verapamil (ISOPTIN) injection 06/14/2020 09:22:48 AM EDT active As needed, Starting on Wed06/14/20 at 0922, Intra-Procedure [facility] Medication administered onsite lidocaine 1 % injection 7134-0488-12 06/14/2020 09:21:26 AM EDT active As needed, Starting on Wed at 0921, Intra-Procedure [facility] Medication administered onsite normal saline flush 0.9 % injection 3 mL [id number] 06/14/2020 07:00:00 AM EDT 3 mL Intravenous active 3 mL , Intravenous, Every 8 hours (scheduled), First dose on Wed06/14/20 at 0700, Pre-op
Rapid push positive pressure flushing shall be performed with a 10 cc normal saline syringe to check the PATENCY of a PIV site prior to any infusion therapy initiation unless resistance is met.
[facility] Medication administered onsite sodium chloride 0.9% (NS) infusion [id number] 06/14/2020 07:00:00 AM EDT 100 mL/h Intravenous active at 100 m L/hr, 100 mL/hr, Intravenous, Continuous, Starting on Wed06/14/20 at 0700, Pre-op
Start two hours prior to scheduled start time
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 Max of 1 dose per day.
[facility] Medication administered onsite normal saline flush 0.9 % injection 3 mL [id number] 06/14/2020 07:00:00 AM EDT 3 mL Intravenous active 3 mL , Intravenous, Every 8 hours (scheduled), First dose on Wed06/14/20 at 0700, Pre-op
Rapid push positive pressure flushing shall be performed with a 10 cc normal saline syringe to check the PATENCY of a PIV site prior to any infusion therapy initiation unless resistance is met.
[facility] Medication administered onsite Covid-19 vaccine, Unspecified 05/30/2020 12:00:00 AM EDT completed [facility] ([facility] Medication administered onsite 25 mg 05/22/2020 12:00:00 AM EDT tablet 30 TAKE ONE TABLET BY MOUTH EVERY EVENING TAKE ONE TABLET BY MOUTH EVERY EVENING SOLD: 09/30/2020 [facility] Amitriptyline Hydrochloride 25 MG Oral Tablet AMITRIPTYLINE HCL 05/22/2020 12:00:00 AM EDT tablet 30 TAKE ONE TABLET BY MOUTH EVERY EVENING TAKE ONE TABLET BY MOUTH EVERY EVENING SOLD: 05/27/2020 [facility] Amitriptyline Hydrochloride 25 MG Oral Tablet AMITRIPTYLINE HCL 05/22/2020 12:00:00 AM EDT tablet 30 TAKE ONE TABLET BY MOUTH EVERY EVENING TAKE ONE TABLET BY MOUTH EVERY EVENING SOLD: 08/02/2020 [facility] Amitriptyline Hydrochloride 25 MG Oral [...] TABLET BY MOUTH EVERY EVENING SOLD: 08/31/2020 [facility] 25 mg 05/17/2020 12:00:00 AM EDT tablet 60 TAKE 1/2 TABLET BY MOUTH TWICE A DAY TAKE 1/2 TABLET BY MOUTH TWICE A DAY SOLD: 05/18/2020 [facility] pantoprazole 40 MG Delayed Release Oral Tablet PANTOPRAZOLE SODIUM 05/14/2020 12:00:00 AM EDT tablet,delayed release (DR/EC) 90 T DEBORAH ONE TABLET BY MOUTH TWICE A DAY TAKE ONE TABLET BY MOUTH TWICE A DAY SOLD: 05/14/2020 [facility] Covid-19 vaccine, Unspecified 05/02/2020 12:00:00 AM EST completed [facility] ([facility] Medication administered onsite 550 mg 04/30/2020 12:00:00 AM EST tablet 60 TAKE ONE TABLET BY MOUTH TWICE A DAY TAKE ONE TABLET BY MOUTH TWICE A DAY SOLD: 06/11/2020 [facility] 550 mg 04/30/2020 12:00:00 AM EST tablet 60 TAKE ONE TABLET BY MOUTH TWICE A DAY TAKE ONE TABLET BY MOUTH TWICE A DAY SOLD: 07/16/2020 [facility] 100 mcg 04/30/2020 12:00:00 AM [...] BY MOUTH TWICE A DAY SOLD: 04/30/2020 [facility] atorvastatin 10 MG Oral Tablet ATORVASTATIN CALCIUM 04/24/2020 1 2:00:00 AM EST tablet 90 TAKE ONE TABLET BY MOUTH NIGHTLY TAKE ONE TABLET BY MOUTH NIGHTLY SOLD: 04/25/2020 [facility] 2.5 mg 04/24/2020 12:00:00 AM EST tablet 90 TAKE ONE TABLET BY MOUTH EVERY DAY TAKE ONE TABLET BY MOUTH EVERY DAY SOLD: 04/25/2020 [facility] atorvastatin 10 MG Oral Tablet atorvastatin (LIPITOR) 10 MG tablet atorvastatin (LIPITOR) 10 MG tablet 04/23/2020 12:00:00 AM EST 10 mg Oral active Take 1 tablet (10 mg total) by mouth nightly [facility] Metoprolol Tartrate 25 MG Oral Tablet me toprolol tartrate (LOPRESSOR) 25 MG tablet metoprolol tartrate (LOPRESSOR) 25 MG tablet 04/23/2020 12:0 0:00 AM EST 12.5 mg Oral active Take 0.5 tablets (12.5 mg total) by mouth 2 (two) times a day [facility] Lisinopril 2.5 MG Oral Tablet lisinopril (PRINIVIL,ZES TRIL) 2.5 MG tablet lisinopril (PRINIVIL,ZESTRIL) 2.5 MG tablet 04/23/2020 12:00:00 AM EST 2.5 mg Oral active Take 1 tablet (2.5 m g total) by mouth daily [facility] pantoprazole 40 MG Delayed Release Oral Tablet [...] MOUTH TWO TIMES A DAY SOLD: 03/28/2020 [facility] pantoprazole 40 MG Delayed Release Oral Tablet [...] Streptococcus pneumoniae serotype 1 capsular antigen diphtheria [id number] protein conjugate vaccine 0.0044 MG/ML / Streptococcus pneumoniae serotype 14 capsular antigen diphtheria [id number] protein conjugate vaccine 0.0044 MG/ML / Streptococcus pneumonia Prevnar 13 12/01/2019 12:00:00 AM EDT active [facility] ([facility]) pantoprazole 40 MG Delayed Release Oral Tablet [...] TABLET BY MOUTH EVERY DAY SOLD: 04/04/2020 [facility] Potassium Chloride 10 MEQ Extended [...] TABLET BY MOUTH EVERY EVENING SOLD: 11/23/2019 [facility] Amitriptyline Hydrochloride 25 MG Oral Tablet AMITRIPTYLINE HCL 05/09/2019 12:00:00 AM EDT tablet 30 TAKE ONE TABLET BY MOUTH EVERY EVENING TAKE ONE TABLET BY MOUTH EVERY EVENING SOLD: 02/24/2020 [facility] Amitriptyline Hydrochloride 25 MG Oral Tablet AMITRIPTYLINE HCL 05/09/2019 12:00:00 AM EDT tablet 30 TAKE ONE TABLET BY MOUTH EVERY EVENING TAKE ONE TABLET BY MOUTH EVERY EVENING SOLD: 01/26/2020 [facility] Amitriptyline Hydrochloride 25 MG Oral Tablet AMITRIPTYLINE HCL 05/09/2019 12:00:00 AM EDT tablet 30 TAKE ONE TABLET BY MOUTH EVERY EVENING TAKE ONE TABLET BY MOUTH EVERY EVENING SOLD: 04/25/2020 [facility] Amitriptyline Hydrochloride 25 MG Oral Tablet AMITRIPTYLINE HCL 05/09/2019 12:00:00 AM EDT tablet 30 TAKE ONE TABLET BY MOUTH EVERY EVENING TAKE ONE TABLET BY MOUTH EVERY EVENING SOLD: 03/28/2020 [facility] Amitriptyline Hydrochloride 25 MG Oral [...] active Take 1 tablet by mouth d [facility] Metoprolol Tartrate 25 MG Oral Tablet me toprolol tartrate (LOPRESSOR) 25 MG tablet metoprolol tartrate (LOPRESSOR) 25 MG tablet 02/25/2019 12:0 0:00 AM EST 12.5 mg Oral active Take 12.5 mg by mouth 2 (two) times a day [facility] 25 mg 02/25/2019 12:00:00 AM EST tablet [...] DAILY DOSE = 1 SOLD: 02/11/2020 [facility] Metoprolol Tartrate 25 MG Oral Tablet Me toprolol Tartrate 25 MG Oral Tablet (LOPRESSOR) Metoprolol Tartrate 25 MG Oral Tablet (LOPRESSOR) 05/2019 12:00:00 AM EST 12.5 mg Oral active Take 0.5 tablets by mouth Two Times Daily [facility] 25 mg 02/25/2019 12:00:00 AM EST tablet 30 TAKE ONE-HALF TABLET BY MOUTH TWICE A DAY MAXIMUM DAILY DOSE = 1 TAKE ONE-HALF TABLET BY MOUTH TWICE A DA Y MAXIMUM DAILY DOSE = 1 SOLD: 11/06/2019 [facility] Verio In Vitro Strip [id number] 02/20/2019 12:00:00 AM EST active #200, test 6-8 times daily, E11. 65, 1 [facility] Insurance Providers Payer name Policy type / Coverage type Policy ID Covered republican ID Covered republican's relationship to sánchez Policy Sánchez Plan Information [id number] MEDICARE [id number] SP [id number] MEDICARE [id number] xxxxxxxxxxx [id number] MEDICARE [id number] Laila [id number] Medicare Part B [facility] [id number] MEDICARE A [id number] Self [id number] MEDICARE [id number] SP [id number] Medicare Natl Govt Servic Medicare Primary [id number] Self [id number] Medicare Natl Govt Servic Medicare Primary [id number] Self [id number] Medicare Natl [facility] Medicare Primary [id number] Self [id number] Medicare Natl [facility] Medicare Primary [id number] Self [id number] Medicare Natl [facility] Medicare Primary [id number] Self [id number] Medicare Natl Govt Serv Medicare Primary [id number] Self AARP HE[employer] CARE OPTIONS [id number] SP [id number] [place] 306/806 [id number] SP [id number] [place] 306/806 [id number] SP [id number] AARP U [id number] Self [id number] [employer] OPTIONS [id number] SP [id number] [employer] OPTIONS [id number] SP [id number] MEDICARE [id number] SP [id number] [facility] [facility] Opt Medigap Part B [id number] Self [id number] [employer] Opt Medigap Part B [id number] Self [id number] [employer] Opt Medigap Part B [id number] Self [id number] [facility] Medigap Part B [id number] Self [id number] [facility] Med[employer] Part B [id number] Self [id number] [facility] Medig[employer] Part B Plan F [id number] Self Plan F [facility] [id number] [id number] [facility] [id number] 0 [id number] [facility] [id number] Laila [id number] AARP U [id number] Self [id number] AARP U [id number] Self [id number] SELF PAY UNAVAILABLE UNAVAILA BLE [place] Primary [id number] Self [id number] MEDICARE C [id number] S [id number] AARP O [id number] S [id number] 911 [place] PART B C [id number] S [id number] [employer] Medigap Part B [id number] Self [id number] [employer]CE[employer] BCBS P [id number] S [id number] [employer] Med[employer]ap Part B [id number] Self [id number] Medicare [place]/NGS Medicare Primary [id number] Self [id number] [facility] Medigap Part B [id number] Self [id number] MEDICARE C [id number] S [id number] Medicare [place] Medicare Primary [id number] Self [id number] [facility] Health Care Options [facility] Part B [id number] Self [id number] Medicare [place] Medicare Primary [id number] Self [id number] Medicare [place]/[facility] Medicare Primary [id number] Self [id number] [facility] Part B [id number] Self [id number] Problems, Conditions, and Diagnoses Code Display Name Description Problem Type Effective Dates Data Source(s) D64.9 Anemia, unspecified Anemia, unspecified Diagnosis 0 07/15/2020 02:33:19 PM EDT [facility] E78.2 Mixed hyperlipidemia Mixed hyperlipidemia Diagnosis 07/15/2020 02:33:19 PM EDT [facility] I35.0 Nonrheumatic aortic (valve) stenosis Nonrheumati c aortic (valve) stenosis Diagnosis 07/15/2020 02:33:19 PM EDT [facility] K70.30 Alcoholic cirrhosis of liver without asc ites Alcoholic cirrhosis of liver without asc Diagnosis 07/15/2020 02:33:19 PM EDT [facility] I21.4 Non-ST elevation (NSTEMI) myocardial inf arction Non-ST elevation (NSTEMI) myocardial inf Diagnosis 06/14/2020 06:07:00 AM EDT [facility] E87.6 Hypokalemia Hypokalemia Diagnosis 06/14/2020 06:07:00 AM EDT [facility] 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 [id number] Upper gastrointestinal bleeding Upper gastrointe stinal bleeding Problem 11/26/2020 12:00:00 AM EDT [facility] E87.6 Hypokalemia Hypokalemia [id number] 06/06/2020 12:00:00 AM EDT [facility] D50.0 Iron deficiency anemia due to chronic bl ood loss Iron deficiency anemia due to chronic blood loss [id number] 06/06/2020 12:00:00 AM EDT [facility] K70.30 Alcoholic cirrhosis of liver without asc ites Alcoholic cirrhosis of liver without ascites [id number] 06/06/2020 12:00:00 AM EDT [facility] Surgeries/Procedures Procedure Description Date Indications Data Source(s) Endoscopy Upper GI Control Hemorrhage 12/11/2020 12:00 :00 AM EDT [facility] ([facility]) OFFICE OUTPATIENT NEW 30 MINUTES 11/26/2020 12:00:00 A M EDT [facility] ([facility]) Trans Care SRV W/I 14D Of DC, Comm W/I 2 Dys Med Rec 11/15/2020 12:00:00 AM EDT [facility] ([facility] ) Aparicio Cre SRV W/I 7 Days Of DC, Comm W/I 2 Dys Med Rec 09/03/2020 12:00:00 AM EDT [facility] ([facility] ) OFFICE OUTPATIENT VISIT 25 MINUTES 07/16/2020 12:00:00 AM EDT [facility] ([facility]) DUPLEX SCAN EXTRACRANIAL ART COMPL BI STUDY <td>US CAR OTID BILATERAL</td><td>Pending Discharge</td><td>06/14/2020 12:41 PM EDT</td><td></td><td> </td> 06/14/2020 12:41:14 PM EDT [facility] BEDSIDE PULMONARY FUNCTION TEST <td>BEDSIDE PULMONARY FUNCTION TEST</td><td>Routine</td><td>06/14/2020 11:15 AM EDT</td><td></td><td></td> 06/14/2020 11:15:21 AM EDT [facility] RADEX SPINE ENTIRE SURVEY STD ANTEROPOST&LAT <td>CARDI [...] infarction)Anemia, unspecified typeMixed hyperlipidemiaSevere aortic valve stenosis [facility] Hypokalemia Iron deficiency anemia due to chronic bl ood loss Alcoholic cirrhosis of liver without asc ites NSTEMI (non-ST elevated myocardial infar ction) Anemia, unspecified type Mixed hyperlipidemia Severe aortic valve stenosis ECG ROUTINE ECG W/LEAST 12 LDS TRCG ONLY W/O I&R <td>E CG 12- LEAD</td><td>Routine</td><td>06/14/2020 6:36 AM EDT</td><td></td><td></td> 06/14/2020 06:36:04 AM EDT [facility] POCT AMB EKG <td>POCT AMB EKG</td><td>Rou grace</td><td>06/04/2020 2:38 PM EDT</td><td> Severe aortic valve stenosis</td><td> </td> 06/04/2020 06:38:00 PM EDT Severe aortic valve stenosis [facility] Severe aortic valve stenosis ECG ROUTINE ECG W/LEAST 12 LDS W/I&R <td>POCT AMB EKG</td><td>Routine</td><td>04/23/2020 5:22 PM EST</td><td> Severe aortic valve stenosis</td><td> </td> 04/23/2020 10:22:00 PM EST Severe aortic valve stenosis [facility] Severe aortic valve stenosis IRON BINDING CAPACITY <td>IRON BINDING</td><td>Routine</td><td>12/01/2019</td><td></td><td></td> 12/01/2019 12:00:00 AM EDT [facility] BLOOD COUNT COMPLETE AUTO&AUTO DIFRNTL WBC COUNT <td>C BC AND DIFFERENTIAL</td><td>Routine</td><td>12/01/2019</td><td></td><td> </td> 12/01/2019 12:00:00 AM EDT [facility] IRON <td>IRON</td><td>Routine</td ><td>12/01/2019</td><td></td><td> </td> 12/01/2019 12:00:00 AM EDT [facility] HEPATIC FUNCTION PANEL <td>HEPATIC FUNCTION PANEL</td><td>Routine</td><td>12/01/2019</td><td></td><td> </td> 12/01/2019 12:00:00 AM EDT [facility] BASIC METABOLIC PANEL CALCIUM TOTAL <td>BASIC METABOLI C PANEL</td><td>Routine</td><td>12/01/2019</td><td></td><td> </td> 12/01/2019 12:00:00 AM EDT [facility] Results ID Date Data Source [id number] 12/11/2020 03:28:00 PM EDT [facility] ([facility]) Name Value Range Interpretation Code Description Data Cecy rce(s) Supporting Document(s) Red Blood Count 3.09 10 4.00-5.40 [facility] ([facility]) White Blood Count 4.9 10 4.0-10.0 [facility] ([facility]) Mean Corpuscular Volume 100.3 fl 80.0-96.0 [facility] ([facility]) Hematocrit 31.0 % 36.0-47.0 [facility] ([facility]) Hemoglobin 9.7 g/dL 12.0-15.5 [facility] Mean Corpuscular Hemoglobin 31.4 pg 27.0-33.0 [facility] ([facility]) Mean Corpuscular HGB Conc 31.3 g/dL 32.0-36.5 [facility] NT ([facility]) Platelet Count, Automated 64 10 150-450 [facility] ([facility]) Red Cell Distribution Width 18.6 % 11.5-14.5 [place] [facility] ([facility]) Nucleated Red Blood Cell % 0.0 % 0-0 [facility] ([facility]) ID Date Data Source [id number] 12/11/2020 03:28:00 PM EDT [facility] ([facility]) Name Value Range Interpretation Code Description Data Cecy rce(s) Supporting Document(s) Platelets reticulated/100 platelets in Blood by Automated count 12.3 % 0.0-9.59 [facility] ([facility]) ID Date Data Source [id number] 12/11/2020 03:28:00 PM EDT [facility] ([facility]) Name Value Range Interpretation Code Description Data Cecy rce(s) Supporting Document(s) Platelets reticulated/100 platelets in Blood by Automated count 12.3 % 0.0-9.59 [facility] ([facility]) improved from labs in July see in office in 6 weeks ID Date Data Source [id number] 12/11/2020 03:28:00 PM EDT [facility] Name Value Range Interpretation Code Description Data Cecy rce(s) Supporting Document(s) Red Blood Count 3.09 10 4.00-5.40 [facility]) improved from labs in July see in office in 6 weeks White Blood Count 4.9 10 4.0-10.0 [facility] improved from labs in July see in office in 6 weeks Hematocrit 31.0 % 36.0-47.0 [facility] improved from labs in [place] see in office in 6 weeks Mean Corpuscular Volume 100.3 fl 80.0-96.0 [facility] ([facility]) improved from labs in [place] see in office in 6 weeks Hemoglobin 9.7 g/dL 12.0-15.5 [facility] improved from labs in [place] see in office in 6 weeks Mean Corpuscular HGB Conc 31.3 g/dL 32.0-36.5 [facility] NT ([facility]) improved from labs in July see in office in 6 weeks Mean Corpuscular Hemoglobin 31.4 pg 27.0-33.0 [facility] ([facility]) improved from labs in July see in office in 6 weeks Nucleated Red Blood Cell % 0.0 % 0-0 [facility] ([facility]) improved from labs in [place] see in office in 6 weeks Platelet Count, Automated 64 10 150-450 [facility] NT ([facility]) improved from labs in [place] see in office in 6 weeks Red Cell Distribution Width 18.6 % 11.5-14.5 [facility] ([facility]) improved from labs in [place] see in office in 6 weeks ID Date Data Source [id number] 12/06/2020 09:20:00 AM EDT [facility] Name Value Range Interpretation Code Description Data Cecy rce(s) Supporting Document(s) Coronavirus 2019 Nasopharygeal Laboratory test result [facility] ASSAY INFORMATION: Real Time RT-PCR NOTE: The COVID-19 assay has been cleared by the U.S. Food and Drug Administration under the Emergency Use Authorization (EUA). [facility] and [facility] are designated as high complexity laboratories by the Clinical Laboratory Improvement Amendments of 1988(CLIA) and are qualified to perform this test. Not Detected ID Date Data Source [id number] 12/06/2020 09:20:00 AM EDT [facility] Name Value Range Interpretation Code Description Data Cecy rce(s) Supporting Document(s) SARS-CoV-2 (COVID-19) RNA [Presence] in Respiratory specimen by MITALI with probe detection Not Detected [facility] This lab was ordered by [facility] and reported by [facility]. ID Date Data Source [id number] 11/29/2020 10:56:00 AM EDT [facility] ([facility]) Name Value Range Interpretation Code Description Data Cecy rce(s) Supporting Document(s) Leukocytes [#/volume] in Blood by Automated count 3.7 x10*3/UL 4.1-10 .9 [facility] ([facility]) Erythrocytes [#/volume] in Blood by Automated count 3.29 x10*6/UL 4.2 0-6.30 [facility] ([facility]) Hemoglobin [Mass/volume] in Blood 10.2 g/dL 12.0-18.0 [facility] ([facility]) Hematocrit [Volume Fraction] of Blood by Automated count 30.2 % 3 7.0-51.0 [facility] ([facility]) MCV 91.8 fL 80.0-97.0 [facility]) MCH 30.9 pg 26.0-32.0 [facility] ([facility]) Platelets [#/volume] in Blood by Automated count 55 x10*3/UL 140-440 [facility] NOTE: RESULT VERIFIED. MCHC 33.7 g/dL 31.0-38.0 [facility] ([facility]) Erythrocyte distribution width [Ratio] by Automated count 15.9 % 11.6-13.7 [facility] ([facility]) Lymph % 29.2 % 10.0-58.5 [facility]) MPV 10.6 FL 7.8-11.0 [facility] ([facility]) Neut % 62.7 % 37.0-92.0 [facility]) Mid % 8.1 % 1.7-9.3 [facility]) Lymph # 1.1 x10*3/UL 0.6-4.1 [facility] ([facility]) Mid # 0.3 x10*3/UL 0.1-0.6 [facility] ([facility]) Neut # 2.3 x10*3/UL 2.0-7.8 [facility] ([facility]) ID Date Data Source [id number] 11/22/2020 10:35:00 AM EDT [facility] ([facility]) Name Value Range Interpretation Code Description Data Cecy rce(s) Supporting Document(s) Erythrocytes [#/volume] in Blood by Automated count 3.50 x10*6/UL 4.2 0-6.30 [facility] ([facility]) Leukocytes [#/volume] in Blood by Automated count 3.9 x10*3/UL 4.1-10 .9 [facility] ([facility]) Hemoglobin [Mass/volume] in Blood 10.6 g/dL 12.0-18.0 [facility] ([facility]) MCV 92.1 fL 80.0-97.0 [facility] ([facility]) Hematocrit [Volume Fraction] of Blood by Automated count 32.2 % 3 7.0-51.0 [facility] ([facility]) MCH 30.4 pg 26.0-32.0 [facility]) Erythrocyte distribution width [Ratio] by Automated count 15.3 % 11.6-13.7 [facility] ([facility]) MCHC 33.0 g/dL 31.0-38.0 [facility] ([facility]) MPV 10.7 FL 7.8-11.0 [facility] ([facility]) Platelets [#/volume] in Blood by Automated count 69 x10*3/UL 140-440 [facility] ([facility]) NOTE: RESULT VERIFIED. Lymph % 28.7 % 10.0-58.5 [facility]) Mid % 7.0 % 1.7-9.3 [facility] Neut % 64.3 % 37.0-92.0 [facility] Lymph # 1.1 x10*3/UL 0.6-4.1 [facility] ([facility]) Mid # 0.3 x10*3/UL 0.1-0.6 [facility] ([facility]) Neut # 2.5 x10*3/UL 2.0-7.8 [facility] ([facility]) ID Date Data Source [id number] 11/15/2020 09:14:00 AM EDT [facility] ([facility]) Name Value Range Interpretation Code Description Data Cecy rce(s) Supporting Document(s) Total Iron Binding Capacity 303 ug/dL 250-450 [place] [facility] ([facility]) Percent Saturation 34.0 % 13.2-45.0 [facility] ([facility]) Iron (Fe) 103 ug/dL 50-170 [facility] ([facility]) ID Date Data Source [id number] 11/15/2020 09:14:00 AM EDT [facility] ([facility]) Name Value Range Interpretation Code Description Data Cecy rce(s) Supporting Document(s) AB Screen (Indirect Adilia)Vis Laboratory test result [facility] ([facility]) Blood Type Laboratory test result [facility] ([facility]) ID Date Data Source [id number] 11/15/2020 09:13:00 AM EDT [facility] ([facility]) Name Value Range Interpretation Code Description Data Cecy rce(s) Supporting Document(s) Glucose [Mass/volume] in Serum or Plasma 101 mg/dL 74-99 [facility] ([facility]) 100-125 mg/dL PRE-DIABETES/FASTING >126 mg/dL DIABETES/FASTING Urea nitrogen [Mass/volume] in Serum or Plasma 9 mg/dL 7-18 [facility] ([facility]) Creatinine 0.9 mg/dL 0.6-1.3 [facility] Sodium [Moles/volume] in Serum or Plasma 143 meq/L 136-145 [facility] ([facility]) Carbon dioxide, total [Moles/volume] in Serum or Plasma 29 meq/L 21 -32 [facility] ([facility]) Potassium [Moles/volume] in Serum or Plasma 4.4 meq/L 3.5-5.1 [facility] ([facility]) Chloride [Moles/volume] in Serum or Plasma 110 meq/L 98-107 [facility] ([facility]) Calcium [Mass/volume] in Serum or Plasma 8.5 mg/dL 8.5-10.1 [facility] ([facility]) Total Bilirubin 1.4 mg/dL 0.2-1.0 [facility] ([facility]) Alkaline phosphatase isoenzyme [Units/volume] in Serum or Pl asma 271 mg/dL 46-116 [facility] ([facility]) NOTE: ALK PHOS,T.BILI,AST,ALBU,T.PROTEIN...VERIFIED Alanine aminotransferase [Enzymatic activity/volume] in Seru m or Plasma 28 U/L 12-78 [facility] ([facility]) Aspartate aminotransferase [Enzymatic activity/volume] in Serum or Plasma 43 U/L 15-37 [facility] Proteinase 3 Ab [Units/volume] in Serum 6.2 g/dL 6.4-8.2 [facility] ([facility]) A/G Ratio 0.59 CALC 1.00-1.90 [facility]) Albumin [Mass/volume] in Serum or Plasma 2.3 g/dL 3.4-5.0 [facility] ([facility]) Glomerular filtration rate/1.73 sq M pre dicted among non-blacks [Volume Rate/Area] in Serum or Plasma by Creatinine-based formula (MDRD) 60 mL/min [facility] Glomerular filtration rate/1.73 sq M pre dicted among blacks [Volume Rate/Area] in Serum or Plasma by Creatinine-based formula (MDRD) Laboratory test result [facility] <content>CHRONIC KIDNEY DISEASE STAGING PER NKF</content>
<content></content>
<content>STAGE I & II GFR >= 60 NORMAL TO MILDLY DECREASED</content>
<content>STAGE III GFR 30-59 MODERATELY DECREASED</content>
<content>STAGE IV GFR 15-29 SEVERELY DECREASED</content>
<content>STAGE V GFR <15 VERY LITTLE GFR LEFT</content>
<content>ESRD GFR <15 ON OPERATING ROOM ORDERLY</content>
<content></content> ID Date Data Source [id number] 11/15/2020 09:13:00 AM EDT [facility] ([facility]) Name Value Range Interpretation Code Description Data Cecy rce(s) Supporting Document(s) Magnesium 1.5 mg/dL 1.8-2.4 [facility] ([facility]) ID Date Data Source [id number] 11/15/2020 09:13:00 AM EDT [facility] ([facility]) Name Value Range Interpretation Code Description Data Cecy rce(s) Supporting Document(s) Leukocytes [#/volume] in Blood by Automated count 4.0 x10*3/UL 4.1-10 .9 [facility] Erythrocytes [#/volume] in Blood by Automated count 3.37 x10*6/UL 4.2 0-6.30 [facility] Hemoglobin [Mass/volume] in Blood 10.2 g/dL 12.0-18.0 [facility] Hematocrit [Volume Fraction] of Blood by Automated count 30.8 % 3 7.0-51.0 [facility] ([facility]) MCV 91.5 fL 80.0-97.0 [facility]) MCH 30.5 pg 26.0-32.0 [facility]) MCHC 33.3 g/dL 31.0-38.0 [facility] ([facility]) Erythrocyte distribution width [Ratio] by Automated count 15.5 % 11.6-13.7 [facility] ([facility]) Platelets [#/volume] in Blood by Automated count 55 x10*3/UL 140-440 [facility] ([facility]) MPV 9.0 FL 7.8-11.0 [facility] ([facility]) Mid % 4.9 % 1.7-9.3 [facility]) Lymph % 18.7 % 10.0-58.5 [facility] Neut % 76.4 % 37.0-92.0 [facility]) Mid # 0.2 x10*3/UL 0.1-0.6 [facility] ([facility]) Lymph # 0.7 x10*3/UL 0.6-4.1 [facility] ([facility]) Neut # 3.1 x10*3/UL 2.0-7.8 [facility] ([facility]) ID Date Data Source [id number] 11/07/2020 05:48:00 PM EDT [facility] ([facility]) Name Value Range Interpretation Code Description Data Cecy rce(s) Supporting Document(s) Red Blood Count 2.45 10 4.00-5.40 [facility] ([facility]) White Blood Count 4.2 10 4.0-10.0 [facility] ([facility]) Hematocrit 24.7 % 36.0-47.0 [facility] Hemoglobin 7.6 g/dL 12.0-15.5 [facility] ([facility]) Mean Corpuscular Volume 100.8 fl 80.0-96.0 [facility] ([facility]) Mean Corpuscular HGB Conc 30.8 g/dL 32.0-36.5 [facility] NT ([facility]) Mean Corpuscular Hemoglobin 31.0 pg 27.0-33.0 [place] [facility] ([facility]) Red Cell Distribution Width 15.7 % 11.5-14.5 [facility] ([facility]) Platelet Count, Automated 42 10 150-450 [facility] ([facility]) Neutrophils % 53.2 % 36.0-66.0 [facility] ([facility]) [place] % 18.8 % 2.0-8.0 [facility] Lymph % 22.1 % 24.0-44.0 [facility] Eos % 5.5 % 0.0-3.0 [facility] Baso % 0.2 % 0.0-1.0 [facility] ([facility]) Immature Granulocyte % 0.2 % 0-3.0 [facility] ([facility]) Nucleated Red Blood Cell % 0.0 % 0-0 [facility] ([facility]) Neutrophils # 2.2 10 1.5-8.5 [facility] ([facility]) Lymph # 0.9 10 1.5-5.0 [facility] ([facility]) [place] # 0.8 10 0.0-0.8 [facility] ([facility]) Eos # 0.2 10 0.0-0.5 [facility] ([facility]) Baso # 0.0 10 0.0-0.2 [facility] ([facility] ID Date Data Source [id number] 11/07/2020 05:48:00 PM EDT [facility] ([facility]) Name Value Range Interpretation Code Description Data Cecy rce(s) Supporting Document(s) Platelets reticulated/100 platelets in Blood by Automated count 14.9 % 0.0-9.59 [facility] ID Date Data Source [id number] 11/07/2020 04:55:00 PM EDT [facility] ([facility]) Name Value Range Interpretation Code Description Data Cecy rce(s) Supporting Document(s) Laboratory test finding (navigational concept) 0.01 ng/mL 0.00-0.08 [facility] ([facility]) ID Date Data Source [id number] 11/07/2020 04:34:00 PM EDT [facility] Name Value Range Interpretation Code Description Data Cecy rce(s) Supporting Document(s) Venous PH 7.403 units 7.330-7.430 [facility] ([facility]) Venous Partial Pressure Co2 45.9 mmHg 38.0-50.0 [facility] ([facility]) Venous Hco3 28.0 meq/L 23.0-27.0 [facility] ([facility]) Venous Total Co2 29.4 meq/L 24.0-28.0 [facility] ([facility]) Venous Partial Pressure O2 141.5 mmHg 30.0-50.0 [facility] ([facility]) Venous Standard Hco3 27.1 meq/L [facility] ( [facility]) Venous Base Excess 2.9 [facility] ([facility]) Venous O2 Saturation 98.8 % 60.0-80.0 [facility] ([facility]) ID Date Data Source [id number] 11/07/2020 04:34:00 PM EDT [facility] ([facility]) Name Value Range Interpretation Code Description Data Cecy rce(s) Supporting Document(s) Alkaline Phosphatase 220 U/L 45-117 [facility] ([facility]) Alt/SGPT 30 IU/L 0-32 [facility] ([facility]) Ast/Sgot 45 IU/L [facility] ([facility]) Bilirubin,Total 1.6 mg/dL 0.2-1.0 [facility] ([facility]) Bilirubin,Direct 0.6 mg/dL 0.0-0.2 [facility] ([facility]) Albumin 2.2 GM/DL 3.2-5.2 [facility] ([facility]) Total Protein 6.0 GM/DL 6.4-8.2 [facility] ([facility]) Albumin/Globulin Ratio 0.6 1.2-2.2 [facility] ([facility]) ID Date Data Source [id number] 11/07/2020 04:34:00 PM EDT [facility] ([facility]) Name Value Range Interpretation Code Description Data Cecy rce(s) Supporting Document(s) Blood Urea Nitrogen 11 mg/dL 7-18 [facility] ([facility]) Glucose, Fasting 99 mg/dL 70-100 [facility] ([facility]) Creatinine For GFR 0.82 mg/dL 0.55-1.30 [facility] ([facility]) Glomerular Filtration Rate Laboratory test result [facility] ([facility]) <content>Units are mL/min/1.73 m2</content>
<content></content>
<content>Chronic Kidney Disease Staging per NKF:</content>
<content></content>
<content>Stage I & II GFR >=60 Normal to Mildly Decreased</content>
<content>Stage III GFR 30- 59 Moderately Decreased</content>
<content>Stage IV GFR 15-29 Severely Decreased</content>
<content>Stage V GFR <15 Very Little GFR Left</content>
<content>ESRD GFR <15 on OPERATING ROOM ORDERLY</content>
<content></content> Sodium Level 140 meq/L 136-145 [facility] ([facility]) Potassium Serum 5.0 meq/L 3.5-5.1 [facility] ([facility]) Carbon Dioxide Level 27 mmol/L 20-29 [facility] ([facility]) Chloride Level 111 meq/L 98-107 [facility] ([facility]) Anion Gap 2 meq/L 8-16 [facility] Calcium Level 8.1 mg/dL 8.8-10.2 [facility] ([facility]) ID Date Data Source [id number] 11/07/2020 04:34:00 PM EDT [facility] ([facility]) Name Value Range Interpretation Code Description Data Cecy rce(s) Supporting Document(s) Natriuretic peptide.B prohormone N-Terminal [Mass/volu me] in Serum or Plasma 901 pg/mL [facility] ([facility] Thyrotropin [Units/volume] in Serum or Plasma by Detec tion limit <= 0.05 mIU/L Laboratory test result 0.358-3.740 [facility] ([facility]) ID Date Data Source [id number] 11/07/2020 04:34:00 PM EDT [facility] Name Value Range Interpretation Code Description Data Cecy rce(s) Supporting Document(s) Respiratory Panel Laboratory test result [facility] ([facility]) This respiratory PCR panel detects Influ noman [...] - SARS-CoV-2 (COVID19) ID Date Data Source [id number] 11/07/2020 04:34:00 PM EDT [facility] ([facility]) Name Value Range Interpretation Code Description Data Cecy e(s) Supporting Document(s) CPK Creatine Phosphokinase 105 U/L 26-192 [facility] ([facility]) CK-MB Value Mass 1.2 ng/mL [facility] ([facility] MB/CK Relative Index 1.14 [facility] ([facility]) <content>DIAGNOSIS CRITERIA</content>
<content>MMB ng/ml Relative Index (RI)</content>
<content>NON-AMI < or = 5 N/A</content>
<content>ZEPEDA ZONE > 5 < or = 4</content>
<content>AMI > 5 > 4</content>
<content></content> Troponin I Laboratory test result [facility] ([facility]) <content>Troponin I Reference Interval f or Siemens Radiant LOCI:</content>
<content></content>
<content>99th Percentile= 0.00-0.045 ng/ml</content>
<content></content>
<content>Risk Stratification:</content>
<content><= 0.10 ng/ml Decreased Risk for Adverse Clinical</content>
<content>Events.</content>
<content>0.10-1.50 ng/ml Increased Risk for Adverse Clinical</content>
<content>Events. Evaluation of additional</content>
<content>criterion and/or repeat testing in 2-6</content>
<content>hours is suggested to rule out myocardial</content>
<content>damage.</content>
<content>>= 1.50 ng/ml Indicative of Myocardial Injury.</content>
<content></content> ID Date Data Source [id number] 11/07/2020 04:34:00 PM EDT [facility] Name Value Range Interpretation Code Description Data Cecy rce(s) Supporting Document(s) SARS-CoV-2 (COVID 19) NEGATIVE - SARS-CoV-2 (COVID19) [facility] This lab was ordered by [facility] a nd reported by [facility]. ID Date Data Source [id number] 09/03/2020 10:49:00 AM EDT [facility] ([facility]) Name Value Range Interpretation Code Description Data Cecy rce(s) Supporting Document(s) Glucose [Mass/volume] in Serum or Plasma 148 mg/dL 74-99 [facility] ([facility]) 100-125 mg/dL PRE-DIABETES/FASTING >126 mg/dL DIABETES/FASTING Urea nitrogen [Mass/volume] in Serum or Plasma 6 mg/dL 7-18 [facility] ([facility]) Sodium [Moles/volume] in Serum or Plasma 143 meq/L 136-145 [facility] ([facility]) Creatinine 0.9 mg/dL 0.6-1.3 [facility] ([facility]) Carbon dioxide, total [Moles/volume] in Serum or Plasma 32 meq/L 21 -32 [facility] ([facility]) Potassium [Moles/volume] in Serum or Plasma 4.1 meq/L 3.5-5.1 [facility] ([facility]) Chloride [Moles/volume] in Serum or Plasma 107 meq/L 98-107 [facility] ([facility]) Calcium [Mass/volume] in Serum or Plasma 8.3 mg/dL 8.5-10.1 [facility] ([facility]) Glomerular filtration rate/1.73 sq M pre dicted among non-blacks [Volume Rate/Area] in Serum or Plasma by Creatinine-based formula (MDRD) 60 mL/min [facility] ([facility]) Glomerular filtration rate/1.73 sq M pre dicted among blacks [Volume Rate/Area] in Serum or Plasma by Creatinine-based formula (MDRD) Laboratory test result [facility] ([facility]) <content>CHRONIC KIDNEY DISEASE STAGING PER NKF</content>
<content></content>
<content>STAGE I & II GFR >= 60 NORMAL TO MILDLY DECREASED</content>
<content>STAGE III GFR 30-59 MODERATELY DECREASED</content>
<content>STAGE IV GFR 15-29 SEVERELY DECREASED</content>
<content>STAGE V GFR <15 VERY LITTLE GFR LEFT</content>
<content>ESRD GFR <15 ON OPERATING ROOM ORDERLY</content>
<content></content> ID Date Data Source [id number] 09/03/2020 10:49:00 AM EDT [facility] ([facility]) Name Value Range Interpretation Code Description Data Cecy rce(s) Supporting Document(s) Leukocytes [#/volume] in Blood by Automated count 3.7 x10*3/UL 4.1-10 .9 [facility] ([facility]) NOTE: CBC AND PLATELET VEREIFIED Erythrocytes [#/volume] in Blood by Automated count 3.53 x10*6/UL 4.2 0-6.30 [facility] ([facility]) Hemoglobin [Mass/volume] in Blood 10.1 g/dL 12.0-18.0 [facility] ([facility]) Hematocrit [Volume Fraction] of Blood by Automated count 31.0 % 3 7.0-51.0 [facility] ([facility]) MCV 87.6 fL 80.0-97.0 [facility] ([facility]) MCH 28.8 pg 26.0-32.0 [facility] ([facility]) MCHC 32.8 g/dL 31.0-38.0 [facility] ([facility]) Erythrocyte distribution width [Ratio] by Automated count 15.8 % 11.6-13.7 [facility] ([facility]) MPV 10.8 FL 7.8-11.0 [facility] ([facility]) Platelets [#/volume] in Blood by Automated count 49 x10*3/UL 140-440 [facility] ([facility]) Lymph % 24.1 % 10.0-58.5 [facility] ([facility]) Mid % 6.6 % 1.7-9.3 [facility] ([facility]) Neut % 69.3 % 37.0-92.0 [facility] ([facility]) Neut # 2.6 x10*3/UL 2.0-7.8 [facility] ([facility]) Mid # 0.2 x10*3/UL 0.1-0.6 [facility] ([facility]) Lymph # 0.9 x10*3/UL 0.6-4.1 [facility] ([facility]) ID Date Data Source [id number] 08/28/2020 12:09:00 AM EDT [facility] Name Value Range Interpretation Code Description Data Cecy rce(s) Supporting Document(s) SARS coronavirus 2 RNA [Presence] in Res piratory specimen by MITALI with probe detection NEGATIVE [facility] This lab was ordered by [facility] a nd reported by [facility]. ID Date Data Source [id number] 07/16/2020 01:35:00 PM EDT [facility] ([facility]) Name Value Range Interpretation Code Description Data Cecy rce(s) Supporting Document(s) Ammonia [Mass/volume] in Blood 64 uMOL/L [facility] ([facility]) ID Date Data Source [id number] 07/16/2020 01:35:00 PM EDT [facility] ([facility]) Name Value Range Interpretation Code Description Data Cecy rce(s) Supporting Document(s) Prothrombin Time 16.9 s 12.5-14.3 [facility] ([facility]) Inr 1.34 [facility] ([facility]) THERAPUTIC HUMAN INR VALUES INDICATIONS NORMAL RANGES PROPHYLAXIS/TREATMENT OF: VENOUS THROMBOSIS 2.0-3.0 PULMONARY EMBOLISM 2.0-3.0 PREVENTION OF SYSTEMIC EMBOLISM FROM: TISSUE HEART VALVES 2.0-3.0 ACUTE MYOCARDIAL INFARCTION 2.0-3.0 VALVULAR HEART DISEASE 2.0-3.0 ATRIAL FIBRILLATION 2.0-3.0 MECHANICAL VALVES(HIGH RISK) 2.5-3.5 RECURRENT MYOCARDIAL INFARCTION 2.5-3.5 ID Date Data Source [id number] 07/16/2020 01:35:00 PM EDT [facility] ([facility]) Name Value Range Interpretation Code Description Data Cecy rce(s) Supporting Document(s) Iron (Fe) 64 ug/dL 50-170 [facility]) Percent Saturation 17.4 % 13.2-45.0 [facility] ([facility]) Total Iron Binding Capacity 367 ug/dL 250-450 [facility] ([facility]) ID Date Data Source [id number] 07/16/2020 01:34:00 PM EDT [facility] ([facility]) Name Value Range Interpretation Code Description Data Cecy rce(s) Supporting Document(s) Thyrotropin [Units/volume] in Serum or Plasma by Detec tion limit <= 0.05 mIU/L 0.04 uIU/mL 0.36-3.74 [facility] ([facility] ) ID Date Data Source [id number] 07/16/2020 01:34:00 PM EDT [facility] ([facility]) Name Value Range Interpretation Code Description Data Cecy rce(s) Supporting Document(s) Cholesterol [Mass/volume] in Serum or Plasma 97 mg/dL 131-200 [facility] ([facility]) Triglyceride [Mass/volume] in Serum or Plasma 47 mg/dL 30-150 [facility] ([facility]) Cholesterol in HDL [Mass/volume] in Serum or Plasma 70 mg/dL 35-60 [facility] ([facility]) Cholesterol in LDL [Mass/volume] in Serum or Plasma by calculation Laboratory test result 50-159 [facility] ([facility] ) ID Date Data Source [id number] 07/16/2020 01:34:00 PM EDT [facility] ([facility]) Name Value Range Interpretation Code Description Data Cecy rce(s) Supporting Document(s) Glucose [Mass/volume] in Serum or Plasma 121 mg/dL 74-99 [facility] ([facility]) 100-125 mg/dL PRE-DIABETES/FASTING >126 mg/dL DIABETES/FASTING Urea nitrogen [Mass/volume] in Serum or Plasma 8 mg/dL 7-18 [facility] ([facility]) Creatinine 1.0 mg/dL 0.6-1.3 [facility] ([facility]) Sodium [Moles/volume] in Serum or Plasma 139 meq/L 136-145 [facility] ([facility]) Potassium [Moles/volume] in Serum or Plasma 3.9 meq/L 3.5-5.1 [facility] ([facility]) Chloride [Moles/volume] in Serum or Plasma 104 meq/L 98-107 [facility] ([facility]) Carbon dioxide, total [Moles/volume] in Serum or Plasma 28 meq/L 21 -32 [facility] ([facility]) Calcium [Mass/volume] in Serum or Plasma 8.1 mg/dL 8.5-10.1 [facility] ([facility]) Aspartate aminotransferase [Enzymatic activity/volume] in Serum or Plasma 43 U/L 15-37 [facility] ([facility] Total Bilirubin 2.3 mg/dL 0.2-1.0 [facility] ([facility]) Alkaline phosphatase isoenzyme [Units/volume] in Serum or Pl asma 253 mg/dL 46-116 [facility] ([facility]) Alanine aminotransferase [Enzymatic activity/volume] in Seru m or Plasma 34 U/L 12-78 [facility] ([facility]) Albumin [Mass/volume] in Serum or Plasma 2.8 g/dL 3.4-5.0 [facility] ([facility]) Proteinase 3 Ab [Units/volume] in Serum 6.6 g/dL 6.4-8.2 [facility] ([facility]) A/G Ratio 0.74 CALC 1.00-1.90 [facility] ([facility]) Glomerular filtration rate/1.73 sq M pre dicted among non-blacks [Volume Rate/Area] in Serum or Plasma by Creatinine-based formula (MDRD) 53 mL/min [facility] ([facility]) Glomerular filtration rate/1.73 sq M pre dicted among blacks [Volume Rate/Area] in Serum or Plasma by Creatinine-based formula (MDRD) Laboratory test result [facility] ([facility]) <content>CHRONIC KIDNEY DISEASE STAGING PER NKF</content>
<content></content>
<content>STAGE I & II GFR >= 60 NORMAL TO MILDLY DECREASED</content>
<content>STAGE III GFR 30-59 MODERATELY DECREASED</content>
<content>STAGE IV GFR 15-29 SEVERELY DECREASED</content>
<content>STAGE V GFR <15 VERY LITTLE GFR LEFT</content>
<content>ESRD GFR <15 ON OPERATING ROOM ORDERLY</content>
<content></content> ID Date Data Source [id number] 07/16/2020 01:34:00 PM EDT [facility] ([facility] Name Value Range Interpretation Code Description Data Cecy rce(s) Supporting Document(s) Hemoglobin A1c/Hemoglobin.total in Blood 5.5 % [facility] ([facility]) Lab Result Notes: Pre-Diabetes 5.7 - 6.4 % Diabetes = or > 6.5% Glucose mean value [Mass/volume] in Blood Estimated fr om glycated hemoglobin 111 mg/dL 60-110 [facility] ([facility] ) ID Date Data Source [id number] 07/16/2020 01:34:00 PM EDT [facility] ([facility]) Name Value Range Interpretation Code Description Data Cecy rce(s) Supporting Document(s) Hemoglobin [Mass/volume] in Blood 9.1 g/dL 12.0-18.0 [facility] ([facility]) Leukocytes [#/volume] in Blood by Automated count 4.0 x10*3/UL 4.1-10 .9 [facility] ([facility]) Erythrocytes [#/volume] in Blood by Automated count 3.19 x10*6/UL 4.2 0-6.30 [facility] ([facility]) Hematocrit [Volume Fraction] of Blood by Automated count 27.5 % 3 7.0-51.0 [facility] ([facility]) MCH 28.4 pg 26.0-32.0 [facility] MCV 86.1 fL 80.0-97.0 [facility] Erythrocyte distribution width [Ratio] by Automated count 15.0 % 11.6-13.7 [facility] ([facility]) MCHC 33.0 g/dL 31.0-38.0 [facility] ([facility]) Platelets [#/volume] in Blood by Automated count 53 x10*3/UL 140-440 [facility] ([facility]) NOTE: RESULT VERIFIED. MPV 10.5 FL 7.8-11.0 [facility] ([facility]) Lymph % 25.3 % 10.0-58.5 [facility] ([facility]) Mid % 7.4 % 1.7-9.3 [facility] ([facility]) Neut % 67.3 % 37.0-92.0 [facility]) Lymph # 1.0 x10*3/UL 0.6-4.1 [facility] ([facility]) Neut # 2.7 x10*3/UL 2.0-7.8 [facility] ([facility]) Mid # 0.3 x10*3/UL 0.1-0.6 [facility] ([facility]) ID Date Data Source [id number] 06/14/2020 04:51:[address] 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 I agree with thehistory, physical and [...] suggested her to follow with a localgast roenterologist/material planning analyst who can stratify her perioperative risk onceabove studies are available with respect to any plans for cardiac surgery.Signature: Sheikh Charlie, MDDate: June 14, 2020Time: 4:44 PM --Gastroenterology Nurse Practitioner Consult NoteClorus Yesenia Gonzalez85 years, female, 1935MRN: [id number] Yen Consulting MD: Dr. GuerraInformant: PatientReason For [...] History:Past Medical History:Diagnosis Date Abdominal ultrasound 03/27/2019 ([facility]) Somewhat small liver w/ coarsened echogenicity pattern raising possiblityof hepatic cirrhosis. 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 Mild MAC with mild mitral stenosis, noregurgitation. Grade 1 LV diastolic dysfunction. Severe aortic stenosis. TraceAI. Trivial pericardial effusion. Echocardiogram 09/01/2017 ([facility] cadiology) LVEF 60-65%. LV diastolic dysfunction. Concentric mild LVH.Moderate aortic stenosis. Echocardiogram 01/2019 ([facility]) LVEF 59%. Indeterminate LV diastolic dysfunction. Severe aorticsclerosis and stenosis. P(eak/mean gradient 72.69 mmHg/50.17 mmHg) GI bleed GIB (gastrointestinal bleeding) H/O echocardiogram 11/13/2019 LV EF 65-70%, severe (mean gradient 57mmHg) History of transfusion few months ago Hyperlipidemia Hypertension Hypothyroidism Regadenoson SPECT 09/01/2017 ([facility] cardiology) No angina or arrhythmia with stress. [...] mouth 2 (two) times a day Umeclidinium [place] (INCRUSE ELLIPTA) 62.5 MCG/INH AEPB InhaleAllergies:Bacitracin and LatexFamily History:Family HistoryProblem Relation Age of Onset Cirrhosis Mother Cirrhosis Father Hyperlipidemia Son Myocardial Infarction ([place]) Son 52 Diabetes SonSocial History:Social HistorySocioeconomic History [...] Social Gatherings with Friends and Family: Attends Buddhism Services: Active Member of Clubs or Organizations: [...] see and evaluate the patient.Signature: Karen Smith, CLARISADate: June 14, 2020Time: 11:45 AMGastroenterology and Hepatology of [phone] Name Value Range Interpretation Code Description Data Cecy rce(s) Supporting Document(s) ID Date Data Source [id number] 06/14/2020 01:15:46 PM EDT [place], [place] [address]Patient Name: MARIELENA GONZALEZDOB: 1935Sex: FOrdering Provider: FILIBERTO KIMuthgil Prov: FILIBERTO NEWBYReferrcharli Provider: Procedure Performed: US CAROTID BILATERALExam Date: 06/14/2020 12:41MRN: [id number] Number: [id number] Class: OutpatientAccount #: [id number] for Exam: TAVR protocolTechnique: NOT READY TO [...] IDALMIS RAMOS On 06/14/2020 1:15 PMWorkstation ID: [id number] Name Value Range Interpretation Code Description Data Cecy rce(s) Supporting Document(s) ID Date Data Source [id number] 06/14/2020 10:07:33 AM EDT [facility] Name Value Range Interpretation Code Description Data Cecy rce(s) Supporting Document(s) &PDF [facility] UBCAXq1bMsHEAiEw88/XYLrsAYPhs0MgPJgmHNk2NCufRHEbI7PvhLpuNXlRJK9XV86eG4fJZjAYXFCe vci [file] [id number]== ID Date Data Source [id number] 06/14/2020 07:47:48 AM EDT [facility] Name Value Range Interpretation Code Description Data Cecy rce(s) Supporting Document(s) EKG [facility] QYGCFy0lDqCTHgDuo8TeLhKtZBCeVY7xpuq3F5Q4iOXvG1IvdDWhx1fpJ7LgX2ZaNJEoWBCCXX7VuXPx jb2 [file] d+//Xxu2dR/lFXi9cW377p7itfLb8C027iV281 F0xyiu9Mqo7J9/amay1E5/06PrV0zszXLrS7TzAi2Ncm6/QG0GLgzj2f4HwwABlLckPnTk8blzoqg0G6 f9sJOtQCyBRlnO7CP+PWrEoLmBrYPAwtJedIX1ZkwHnr7LwzU0y7sSOyj7jNCTXMUSYAvsA7JH6KYCOS rUTUDMFUFCVuKgpTSZRsmcmWmWyZyZaZbJnJlplsWc [file] MDAwMDAgbiAKMDAwMDAwMDUyMyAwMDAwMCBuIAowMD CbSBClTdGxBFIzCZJqQZ1hWcGtQTOzMXK8OFZqTNVfHPBiknHVGFLuTJTwNVv9SAAiIQCvVGGwOMapQZ OnCGErRBP6IAXxCZGlMQ7jYuSiJRZxDYGhKAEjWGUgSMYoilAIVHIwQPOqLNP9DCBnGNNbNHJbNHgyUZ XuARBgBir6STFaIJCcBK6lYeYzOXTdTYW5KEXyZLFm VNPtjhIMDBCrNUI7OzY7QWAvJTFtGSTsMMekEHImJKEdYnP3AGYcQCTgYO3tMsZjSWPtXTZ2BhFaZWQo FRLckwOOBPPjWUBpECF7UhLaETJoKEJoVMbfENYaNYHlVSVzOXM3TMR9UMOdZaEvPLcfMYIXWNaKW7Ev umTuWhXIT7dqAv5eLcBaLYNFF6Hoj2MkKVHkRERYXq5+ZyB3ZJB2gSXfGvq9UUH0DOdtMDLYGg== ID Date Data Source [id number] 06/09/2020 11:55:00 AM EDT [facility] ([facility]) Name Value Range Interpretation Code Description Data Cecy rce(s) Supporting Document(s) Coronavirus 2019 Nasopharygeal Laboratory test result [facility] ASSAY INFORMATION: Real Time RT-PCR NOTE: The COVID-19 assay has been cleared by the U.S. Food and Drug Administration under the Emergency Use Authorization (EUA). [facility] and [facility] are designated as high complexity laboratories by the Clinical Laboratory Improvement Amendments of 1988(CLIA) and are qualified to perform this test. Not Detected ID Date Data Source [id number] 06/09/2020 11:55:00 AM EDT [facility] Name Value Range Interpretation Code Description Data Cecy rce(s) Supporting Document(s) SARS-CoV-2 (COVID-19) RNA [Presence] in Respiratory specimen by MITALI with probe detection Not Detected [facility] This lab was ordered by [facility] and reported by [employer] ID Date Data Source [id number] 12/01/2019 03:31:00 PM EDT [facility] ([facility]) Name Value Range Interpretation Code Description Data Cecy rce(s) Supporting Document(s) Iron (Fe) 170 ug/dL 50-170 [facility]) Percent Saturation 60.3 % 13.2-45.0 [facility] ([facility]) Total Iron Binding Capacity 282 ug/dL 250-450 [facility] ([facility]) ID Date Data Source [id number] 12/01/2019 03:31:00 PM EDT [facility] ([facility]) Name Value Range Interpretation Code Description Data Cecy rce(s) Supporting Document(s) Urea nitrogen [Mass/volume] in Serum or Plasma 12 mg/dL 7-18 [facility] ([facility]) Glucose [Mass/volume] in Serum or Plasma 122 mg/dL 74-99 [facility] ([facility]) 100-125 mg/dL PRE-DIABETES/FASTING >126 mg/dL DIABETES/FASTING Potassium [Moles/volume] in Serum or Plasma 4.0 meq/L 3.5-5.1 [facility] ([facility]) Creatinine 0.9 mg/dL 0.6-1.3 [facility] Sodium [Moles/volume] in Serum or Plasma 141 meq/L 136-145 [facility] ([facility]) Carbon dioxide, total [Moles/volume] in Serum or Plasma 25 meq/L 21 -32 [facility] ([facility]) Chloride [Moles/volume] in Serum or Plasma 108 meq/L 98-107 [facility] ([facility]) Calcium [Mass/volume] in Serum or Plasma 8.5 mg/dL 8.5-10.1 [facility] ([facility]) NOTE: ALK PHOS,T.BILI,AST,ALBUMIN VERIFIED Total Bilirubin 2.3 mg/dL 0.2-1.0 [facility] ([facility]) Alkaline phosphatase isoenzyme [Units/volume] in Serum or Pl asma 260 mg/dL 46-116 [facility] ([facility]) Aspartate aminotransferase [Enzymatic activity/volume] in Serum or Plasma 56 U/L 15-37 [facility] ([facility] ) Albumin [Mass/volume] in Serum or Plasma 3.0 g/dL 3.4-5.0 [facility] ([facility]) Alanine aminotransferase [Enzymatic activity/volume] in Seru m or Plasma 40 U/L 12-78 [facility] ([facility]) Proteinase 3 Ab [Units/volume] in Serum 7.4 g/dL 6.4-8.2 [facility] ([facility]) Glomerular filtration rate/1.73 sq M pre dicted among non-blacks [Volume Rate/Area] in Serum or Plasma by Creatinine-based formula (MDRD) 60 mL/min [facility] ([facility]) A/G Ratio 0.68 CALC 1.00-1.90 [facility]) Glomerular filtration rate/1.73 sq M pre dicted among blacks [Volume Rate/Area] in Serum or Plasma by Creatinine-based formula (MDRD) Laboratory test result [facility] ([facility]) <content>CHRONIC KIDNEY DISEASE STAGING PER NKF</content>
<content></content>
<content>STAGE I & II GFR >= 60 NORMAL TO MILDLY DECREASED</content>
<content>STAGE III GFR 30-59 MODERATELY DECREASED</content>
<content>STAGE IV GFR 15-29 SEVERELY DECREASED</content>
<content>STAGE V GFR <15 VERY LITTLE GFR LEFT</content>
<content>ESRD GFR <15 ON OPERATING ROOM ORDERLY</content>
<content></content> ID Date Data Source [id number] 12/01/2019 03:31:00 PM EDT [facility] Name Value Range Interpretation Code Description Data Cecy rce(s) Supporting Document(s) Erythrocytes [#/volume] in Blood by Automated count 3.89 x10*6/UL 4.2 0-6.30 [facility] Leukocytes [#/volume] in Blood by Automated count 4.1 x10*3/UL 4.1-10 .9 [facility] Hemoglobin [Mass/volume] in Blood 12.5 g/dL 12.0-18.0 [facility] MCV 95.4 fL 80.0-97.0 [facility] ([facility]) Hematocrit [Volume Fraction] of Blood by Automated count 37.1 % 3 7.0-51.0 [facility] ([facility]) MCH 32.1 pg 26.0-32.0 [facility] ([facility]) MCHC 33.6 g/dL 31.0-38.0 [facility] ([facility]) Erythrocyte distribution width [Ratio] by Automated count 14.1 % 11.6-13.7 [facility] MPV 10.5 FL 7.8-11.0 [facility] ([facility]) Platelets [#/volume] in Blood by Automated count 58 x10*3/UL 140-440 [facility] ([facility]) NOTE: RESULT VERIFIED. Lymph # 0.9 x10*3/UL 0.6-4.1 [facility] ([facility]) Lymph % 23.2 % 10.0-58.5 [facility] Mid % 6.2 % 1.7-9.3 [facility] Neut % 70.6 % 37.0-92.0 [facility] Neut # 2.9 x10*3/UL 2.0-7.8 [facility] ([facility]) Mid # 0.3 x10*3/UL 0.1-0.6 [facility] ([facility]) ID Date Data Source [id number] 10/19/2019 03:30:00 PM EDT [facility] Name Value Range Interpretation Code Description Data Cecy rce(s) Supporting Document(s) First Visit [facility] CIMIYr4dAlBAYjSgJOJpCvvKLEuaSYvtCXYyK9B1WUxjAs1SKCfewdGvCEYpGq2+FVUdDN8tmk2cEDUg gMy 4iSWXvCdppI5QcAUUvv79JCFYhEUfPRaEbXjOfYVW8BPRgAhXvZIS4JsMyNwasHW0iXPN9SJQvAMvlKN PwLEfdPACzPvvsXj4dKCrtKEduAs5NXN8wy0TqMUKfZFMyWkkDFHhcXUzuNAMnGGOhBSKiJ372wmVbXN 6FySEgJBx3NTWtXwY1YOCwIdH1DDJgKaKnUjMmRDKk G8Jnh920gxMrxyP6ZG8OU8PqEDS7MVs9V6lmHiLdAEXvTETkBD4iWyE3PVLuYk0NoOreEJFwXLEbJy8I dQk6YYQ8KZLiTc3+Pj4+Uk7kmdYrUsrZJZTmYE8iqj75MQ0JcRTrBW9TSYsbF72kQKsgAp72BXljUSKi VfWpELc1Yp6kDzMpg0LyY1DaRHf8T4uKFzsmM8DoLM zaDF3rKOO5DHIxQm8+Sn8dZVPiUO35ZNDsGLWOZ9SzunIdmmSaMBk8EDLkKs1+Sc0bjiOzDenUDXDwHU 6bpn61RP0VST4fsFaqVEI8ZxxfF57pjIKfG1mtIbDxY4VysLenZXGaEW5zM5DxWOukAQRfGH2mwmCmpD 4WnLo9VIMuXs2VcLS6DCXcK19kNILlHBYQNEQhl5Lp CN5Mp7hmleOcKJElAX9FSASrT7LGC1SxJ2zakNgiTBGpOT8HFSneaVQfFGs7UL4UbWWeYFStO68coE9j QZ57ISv+LuI1izRhmN6IgWuyp9TDFI112v4U3+DaZj7LkTuMWMAEHIqrPTSR8V1FhIcVYEXWa4Jli4eh 7gwafAYd/OS/3840oB9vqgz1od4zgqv41r5N61yk23 [file] 8KbiQ43U/Marco+fkmq+YcHCYbJ4x4MY7kXzXG9wsLp4VM19ABkeSjwAHsZiJbHiyhOgvQOqfVmWLzGFzab YdmbdDAU3DeRsn4qbB083NMS+WkSnEd/RTKgeID28f+KTG1fd4Z7QLcX9JPDQj5sw7+YDVlHluj+c+Yw uEQhir1528vqc6rEHVTithT7fipKmnnA2+zKgPCcdt 9QTvpx1FZak1u8xkwdcRZncYhl2bo5EeuVbfsmEWs9FNfD3RN2PjIBi6RY+sNbf9plV0dT1gqUNLnLis SNx534h3YAa38q09TIFccAfkt5ljrKW0PJOlGyrBedXlrSG9EbEbruiA22d6pBQeLcPsPduTUEn/3sW0 BLklBSRE6HmD0WlZPhKy+LwvQL76vdCoszhRqgswOf KH7YCzt0sX5iFCd50v/ueLu15QGSTRQyCti6YKEWQdE2XKvqMqLSvhOcgv27iu2opF/Hc3tM1lxL8mCB TFtnaM1c/PfvQlUIsB/D275j5cCHBmT+mq2SGpKnRT690ulBtT2+Kv0g06cDPT38gL+LhWgyDK0Nsk88 +3kwYyUz9C4/OYyyhZsGQgb/1bIGtNX/T9DJJ/RbXw Dat9p+I9ShGxBRbNN8CjrPh6F17fjFnM9QPsssfyh38OeoQzer4K6xRGgCvcpqa9Vdmt3CPmIy2r9PxW lsQsd5Jtkri/i5D0UHq2oaES++UthDje2UGKToqIv5VPCiTVPSR4FUaa7Vxhs78//Maria Elena//MJgJjIQxRh [file] yK37K42MjZt2wu/ii68ZMMS6klCKJ6q+TOOL ENGINE LATHE SET UP OPERATOR/kjTFR1Mhxxc96j+dFCvZ3c1PGLIjmQP1Aom66frBq1NMx [file] senior care+0e+b69vpgJJgl9kjs7qP5815s9WMy2c3CJug0lVCZnfpQ8Tsg92kEm+wheq23TEcHybcY3Sapg/2 [file] kNZuOOJJNUZZvDvJMTVUH+obtiKPeYH99+reverberatory furnace operator+98c/gJ4kca8qv24Q9e86SP6cEZcg1ibjocwc3mPX/4 [file] Óscar+kioqE7Xt3CvT42xRu9f5Nfdegrp3vpRszC1O0xiNlrHlcJ6DqvatcehYqgECUeql3lmiYt7pp+p8 [file] 32/0cUjI16KL1TD+4gG2GhUeapCt1yezcUGui/b+dent rhhY55q+Oy32ClQdV91RxSb7SHdvp3jJ1SQ4uGPJyKXn3G2A+NoF80tXPlvhdylAWbVop2yFuRSVcPfR DElGwPshMW4ralMMz2/kn/skuLaqor2aikesC3+IJhlKwtc0FWsgc7oVke7btom9OkfVPEe4++sTOJB9 gN058FqEhl7xDjqiIkT5L+3d7XUwqmSFFQCi73cu89 8ByKeI/bKxvjXCLN+lQxKdHa8JO9VXvvq21hMrShegx87Yhm0i5+4nUUpHHSyl1ML4tmz06VskMWEPnb uN+47s3g9Vss5CV7LjSrk/Xtq9A0rSGzBhzkmFlq86Ive8urWY95eTFNKeEDifq8UNWDVzlRv9/JBQYM WqqI7tEVP/WKmEk7u5riwVYfBg9mLWecFt1MZlWFHp tbATfisJ49HkxD1Cj/VmX4SVzAvIsec8R9en99rFGVB3/4ttYY+8G5uxvqFkEaAvQaUZ7BjMBtkCnPtd f41SIM/Dermeq7tzaHNsiSJ4JH3weWqPFXcHAtaS6d0bBew7u+N1Dp1fqWCc/dT21D4vW/ti8ms2pi9d health and safety tech+yT/NmTOk2MBoiHKwntylTQeWKkHvsC98Ieppcs [file] D6v34zseZZZWSS6c2LraPyg3rmJh3iZWtJw+svp marketing/mPk [file] Martín+IE3rpkoZ9CqW0J+JWF78iSlwGnakVcwm0m+eVILAdQs1wylvyStTiO3DoXLKz/01gSHAEUleQF8zH [file] [employer] [file] Jose Daniel+WQ+5yrH1pVsUwmfHQWv6YFG866GSKXRx56lFje9jecKl3VReS6oPlQeeExu4fKx8RIj48LARleEv9 [file] 7w9k+a03HIyiSUUsTjhI02N0vQXklWS3/UYUsYHHAbyQdHA120+hdqz6eqaS+svp marketing+l/I2VM1khU286yz8 CapTS4pPTSaA+V2IUTpafFoMGDSUW9Ng/qMl+k0sjiQORjIidl+RK/YT1SlDFARH+FJMfiGa3WHn0nRF Hf9N+yfPdIhJKPSltq09t68Oxq5HePB/4Wx+e5MCPi lPsBZiAEkufn57zzjBuRK13qMXrFf283p1g88QwuCVtDeX5fiWkarMEc3qfDPxp+IbD9QNqujofxdw1t LsWwZ05XLxUvokRNWbJ0bf9ZJDgS7ADAGqEF1XjCD/z3nTrMtXdWVqfBozCvawhc7R/rQoO3gbIKkvx6 wUUoHH7qnhuXax7eEJbFiodaJL8b1JphnfWeYIBmz9 lkbrXaBTlJjEU9GsAx9Z0RNdKemWmMtF8XEypgv9CTKderH5l8J9mTdD3uUJhdVXC8RYiummS5rrQYT7 u13qvahGqqYUFD9F3A7liY/OqzYUF+zGZKX/0rdCiiZE0pnjpt1Sg/TCfnz8eiyFB7FiNTN9Sm82VPQ/ LE8NBiEdTuVpGnSKxkpSkg6sqdLPqUqOAyj9DkMHoR fTZbqyCU9a5lGc/cUg26X8AjI9gUYRkd22vD+2BzRv74BewCqitUe/BiNpzIxcHVeVNZeQJVzBRR21Ne K8CudFdnHsvdk+4VfHSOPj3GcGM8KntHj7G3nizUdFxxCc3BgeOA7yeJT9J0h9zKcVvJTuPW5r7J+MIGUELANGEL [file] YjzV9SXlfzznNDOnPxghrG0ZCz6DRrjpbOgq0kzdxG G7+ac9fQV4zcHKlCArkiXwp54h5wnhcx71XjyqJJ1JspB+rMGd3usJiMRS1TWbxGmm5sIh48UZwnG3WO UjTKxxP4shtTX9uBtOpr9MsLbToQDw1omQgd7yQ6kXJNIzZ2qfCrsS+BMmmryA9v07QEUlJdLIJBwzAA V8t4VjqAOl9r0qZrMXGiV4qk2VaK8qwulejR7dofCc JbuTfDBWvLhRNmeJyYX7fXq1qWOVN9i8r8Js8DVjEUlSh97yhSgnEGfiz24cO/r4JFCD27BJxamabOlg ZWHfs6042gLLQweyX5M2UpUhA4a+HsdDUw2OrW/UfCPMLNFL3ksRmO9OjtmHhipFii+u9w89BM+9Uiww E0pYSuWAzcLZ3kHmgRbvcZCb/eeoL1oVOnS/TOg3Fy xse02znQ3Yf0e1x7lbupXqW+e7FcsFL+KHt3n0gjN6+fd8xHGsH4/VPhW17HJHigFfvPEGB7rGeeT7zz G6vh6FvQRN6VnukodOtk0wySx2Z4k5IzS/mU/7jCcYIyoT96Tnb6mFWPwxl2l1FwNTY7P72nxzE9zZ2U VvY/bEF2Bx/9pHc2yLEGEtCBvZA6oW/M3WX76iBCeh MANAGER RESTAURANT+qEW0JAqdV4l6GC5Lk33MOO9UgSJI3hR+HQI0SLXL5oHaHMWrYt94CmuCOWHYOSNlqOX/+GTPzeEqF [file] jfXlyN8rs9GqQuSO9Zv3hdP8d4QOzokTMEMB5dvEs1kbrD6Z9gO8tbsh02vnnymxE6RpJcjZ/Kevd+MARTÍN [file] bmxZ0xXd8akwEQ9IIK6ZKp0b92Az6Nrvk3VBNhMybZGcEkyqlBPf0ndgGGOUaChTK1uKj8nmHJl/[facility] [[facility]] 1huBsmsnbOm1q2v8NWR9ZKBPnSHlPwC3cfnBHAZ9vJP0WRhJGFo1h0++PFp087aQM+martín+DN6ZmzAgA7l [file] Bárbara+suqMItbaOh5X9HdCn5IgiHF/dO37w/A7zQYkyhDVolAyPZ1pIRy9o7u36navbC3Hba+ZYdxIjzEk ZQKpCv6DOy6+/QU/SNn4QE3RR1p7FRJF1Dn+9E4fSu 0s5i5/j0CHIcpqn6VnRF/IzfWhCQxuzsCJqw31TKoWwYIcQ/es4idouWwj3oPiaA8QDRLNfHgisA6HoY uDzkEVDHSFci7BbhfYp75Cn8w1ZQokLIbueJUS/egiiovElJJUcq1IVckQmPmDLmMXsCIey7FYNMdfH2 O56hy0hgn+kuHk1uNcJb+9r54LHUS3aZONYQzwIhum melBgeNUpPlFnaMAVEc3iS87q27ZDM3WCCm3MAfhD9YMfcH/9pTtzV+RN6th4K+eum1pxyI/oF9qKdPG eMTWENyrQzl98v4HyEcXbRq8NU735YwQun99cX7TLdoGAm/VsXGW6dfkOuniZjCMe9onXmGs5gd6xDH5 xEnMnhQtFZrdbKQYZCMlxGtdg3jnTQq8jrKkIC786A xr8AztkUPvQKlzCvjxigLbCE0uqzeAtNg2yeldus2BX7AUGj1LHvNeweoHL+7P/OtC/i5kWdbK4zpR20 3vhquWJr22et1ql+q9Q+M3Kr1pmm5cqvkIFWW0+UIVQqwvFLt1DcG96LhxJO6uFBkzCf2a725yVqNsmp DT7cn7/QD+FnaYIJKusEl1eVKeKI9ceEud5/pqVXze /EZl4iwpvKBQvXUVyFsQK6+544EfJFfxMU2VEc8HpZ6HAomUMgpkQmous8JK249tsXc+cJu2qD0r0bGU c0z0pS801bRnS4EeI5LZISIJ7JFEinHs54F8q6AF230lJe4SxDhmKvDkttOujwhK2w+YQRqzvYwzT5MF 65m4Rnj9lb4CHagDMv8wOYlg/mbR+XbroCfwYblXT+ FpQpJjReTI7QItMfCz4pgMPHGM2S8R95wvG53J7aACtRshOU4YyLJT474seb1SX6voYtG5VW4esxyBR/ QcHj+shania+vOi9Eif7xzGNtdXTN8ci3LVJ0Min/1zRNm3nuXmXEMP/ve66hCyyP/Clht3zVS323BRQALl [file] reTKdJOlwRCxhzTCKXANsuwe9HmgCL1qCeyK1vJi3oTfEeApZ1Nxj3MUdRNlxLPMemxWVWqUTAVb/finished goods inspector [file] wnkmgTvPPtfIMRlIJ0++6Gwk//FIzx7ry5u/1z [file] f6gUthJwzG1bDOZcH0MapLq/l4f5o/feXDoX+Zo qE334LDwbZ2V0hgoXe4DsflfCIvc5i8dz/xszeDv6VkR1dYzOdO4eSA3r1c7GKiiKKuI5CKJl2ZGIEUa xzaNqPPNzoblnUnO7sZ1+u5BOTjbIbV5GbDlBz0JejRq90Gnwo5d2LmxyJ7pMOFo2RlH4L3RzPjuiXxp 3Ssxo8q3ZFkxOMkQLS3OfWMIHkbGPg6WfIw8QZMXPj c66zyTgEoAUXya/RVAcapM54hw5QwBEzh26adPqnC2STW9o+xZAFP4d3SD4pnFd5M+qnR0giZVOW0hpP qakRnoj9XC2Zdt38GWIXxWI9Z4UWDw7PIJf6zUWDKG+7xDMwyt810E1Oegef1wgy9x/v5MOJiV137acJ 4Cj/XLmzOmBO4i5pRFV6wBavlmyNOrVCQq/EJoqewb phNtz9veKGh3LerkW+n9WOhkgID7UbXvZzSBkjOiB5Q/wzMx9/l8CShq43TVJl3a6NSCLmw5tDIUD/KING 00k1V6RWUoKXzhsU1qNpdtlxF5IfDwVgfIJB3vUyafvgTsdNTZrNipAH9pjnlaElcs6m3EiN+rY94E/9 1hsHRfZJueHX2Jy6UUNbHN5sPRqXIP+6ugdEbI+KSJ pXrAjb8OSC15iAqX0ihfIcnNGbmrmJ7W1Ol94h8oSgDDxdNaxIgt2Iw83l2VN514BGn9qYh5/Iw/Graciela [file] BsZ0aF217xTTKpmlU77CU68aCpUk6v6fy82aqYNAqhsw2tuYT/MANAGER RESTAURANT/o5sFZ5K2GqHBOOm3U/jpLRT79va [file] dUflMSLGcrY4S+jose antonio/n7CQ/yll/2TRd5RIJuRbAiu3XDvoeSku3bz5U1zsO/7hH/7hH/7hH/4J8StQWh [file] IGN+store merchandiser/C3QS3Z+nGND1eD1Aafh99ZbKaWF+FfoN5bI [file] NMFUpdcnAkmEVfDX3DIsKcQS3ijt8KKgI0AZC7zRLuXr9IXDJ2QCu7RH7OUDJNJ4U= Procedure Social History Code Duration Value Status Description Data Source(s ) Alcohol intake 06/17/2020 12:00:00 AM EDT Ex-drinker (finding) comp leted Ex- drinker (finding) [facility] Alcohol intake 06/14/2020 12:00:00 AM EDT Ex-drinker (finding) comp leted Ex- drinker (finding) [facility] Alcohol intake 06/04/2020 12:00:00 AM EDT Not Currently completed [facility] Cigarette pack-years 06/04/2020 12:00:00 AM EDT UNK completed [facility] Cigarettes smoked current (pack per day) - Reported 06/05/19 12:00:00 AM EDT UNK completed [facility] Smoking 06/04/2020 12:00:00 AM EDT Former smoker completed Former smoker [facility] Alcohol intake 11/13/2019 12:00:00 AM EDT Not Currently completed [facility] Cigarette pack-years 11/13/2019 12:00:00 AM EDT UNK completed [facility] Cigarettes smoked current (pack per day) - Reported 11/13/19 12:00:00 AM EDT UNK completed [facility] Smoking 11/13/2019 12:00:00 AM EDT Former smoker completed Former smoker [facility] Vital Signs ID Date Data Source UNK Name Value Range Interpretation Code Description Data Source(s) Diastolic blood pressure 66 mm[Hg] 66 mm[Hg] [facility] ([facility]) Systolic blood pressure 112 mm[Hg] 112 mm[Hg] [facility] ([facility]) Heart rate 82 /min 82 /min [facility] ([facility]) Body height 62.50 [in_i] 62.50 [in_i] [facility] ([facility]) 5'2.50" Body weight 220.00 [lb_av] 220.00 [lb_av] [facility] ([facility]) Oxygen saturation in Arterial blood by Pulse oximetry 97 % 97 % [facility] ([facility]) 3 liters Body mass index (BMI) [Ratio] 39.6 kg/m2 39.6 k g/m2 [facility] ([facility]) Body weight 99.792 kg 99.792 kg [facility] ([facility]) Body temperature 97.2 [degF] 97.2 [degF] [facility] ([facility]) Body weight 220.00 [lb_av] 220.00 [lb_av] [facility] ([facility]) Systolic blood pressure 133 mm[Hg] 133 mm[Hg] [facility] ([facility]) Body height 62 [in_i] 62 [in_i] [facility] 5'2" Diastolic blood pressure 70 mm[Hg] 70 mm[Hg] [facility] ([facility]) Heart rate 72 /min 72 /min [facility] ([facility]) Body mass index (BMI) [Ratio] 40.2 kg/m2 40.2 k g/m2 [facility] ([facility]) Heart rate 86 /min 86 /min [facility] ([facility]) Body weight 226.00 [lb_av] 226.00 [lb_av] [facility] ([facility]) Oxygen saturation in Arterial blood by Pulse oximetry 94 % 94 % [facility] ([facility]) 2.5 liters Diastolic blood pressure 80 mm[Hg] 80 mm[Hg] [facility] ([facility]) Systolic blood pressure 136 mm[Hg] 136 mm[Hg] [facility] ([facility]) Body mass index (BMI) [Ratio] 41.4 kg/m2 41.4 k g/m2 [facility] ([facility]) Diastolic blood pressure 62 mm[Hg] 62 mm[Hg] [facility] ([facility]) Body height 62.50 [in_i] 62.50 [in_i] [facility] ([facility]) 5'2.50" Body weight 230.00 [lb_av] 230.00 [lb_av] [facility] ([facility]) Systolic blood pressure 138 mm[Hg] 138 mm[Hg] [facility] ([facility]) Heart rate 73 /min 73 /min [facility] ([facility]) Oxygen saturation in Arterial blood by Pulse oximetry 94 % 94 % [facility] ([facility]) on 3L Body weight 227.00 [lb_av] 227.00 [lb_av] [facility] ([facility]) Body mass index (BMI) [Ratio] 40.9 kg/m2 40.9 k g/m2 [facility] ([facility]) Systolic blood pressure 120 mm[Hg] 120 mm[Hg] [facility] ([facility]) Body height 62.50 [in_i] 62.50 [in_i] [facility] ([facility]) 5'2.50" Diastolic blood pressure 66 mm[Hg] 66 mm[Hg] [facility] ([facility]) Heart rate 78 /min 78 /min [facility] Body mass index (BMI) [Ratio] 41.99 kg/m2 41.99 kg/m2 [facility] Systolic blood pressure 132 mm[Hg] 132 mm[Hg] [facility] Diastolic blood pressure 54 mm[Hg] 54 mm[Hg] [facility] Heart rate 84 /min 84 /min [facility] Body height 157.5 cm 157.5 cm [facility] Body weight 104.146 kg 104.146 kg [facility] Oxygen saturation in Arterial blood by Pulse oximetry 96 % 96 % [facility] Body temperature [address] [facility] Heart rate 70 /min 70 /min [facility] Respiratory rate 16 /min 16 /min [facility] Oxygen saturation in Arterial blood by Pulse oximetry 98 % 98 % [facility] Systolic blood pressure 110 mm[Hg] 110 mm[Hg] [facility] Diastolic blood pressure 53 mm[Hg] 53 mm[Hg] [facility] Body height 157.5 cm 157.5 cm [facility] Body weight 104 kg 104 kg [facility] Body mass index (BMI) [Ratio] 41.94 kg/m2 41.94 kg/m2 [facility] Heart rate 87 /min 87 /min [facility] Diastolic blood pressure 46 mm[Hg] 46 mm[Hg] [facility] Systolic blood pressure 108 mm[Hg] 108 mm[Hg] [facility] Body height 157.5 cm 157.5 cm [facility] Body weight 103.42 kg 103.42 kg [facility] Body mass index (BMI) [Ratio] 41.70 kg/m2 41.70 kg/m2 [facility] Oxygen saturation in Arterial blood by Pulse oximetry 97 % 97 % [facility] Systolic blood pressure 114 mm[Hg] 114 mm[Hg] [facility] Diastolic blood pressure 60 mm[Hg] 60 mm[Hg] [facility] Heart rate 68 /min 68 /min [facility] Body height 157.5 cm 157.5 cm [facility] Body weight 104.327 kg 104.327 kg [facility] Body mass index (BMI) [Ratio] 42.07 kg/m2 42.07 kg/m2 [facility] Oxygen saturation in Arterial blood by Pulse oximetry 96 % 96 % [facility] Systolic blood pressure 122 mm[Hg] 122 mm[Hg] M [facility] ([facility]) Diastolic blood pressure 68 mm[Hg] 68 mm[Hg] RAQUEL ([facility]) Heart rate 78 /min 78 /min MEDLA[facility]ANO ([facility]) Body height 62.50 [in_i] 62.50 [in_i] RAQUEL ([facility]) 5'2.50" Body weight 224.00 [lb_av] 224.00 [lb_av] AAMIREN Oscar ([facility]) Body mass index (BMI) [Ratio] 40.3 kg/m2 40.3 k g/m2 [facility] ([facility]) Patient Treatment Plan of Care Planned Activity Planned Date Details Description Data Source (s) normal saline flush 0.9 % injection 3 mL 06/14/2020 02:00:00 PM EDT [facility] 1 ML heparin sodium, porcine 1000 UNT/ML Injection 06/14/2020 09 :23:11 AM EDT [facility] normal saline flush 0.9 % injection 3 mL 06/14/2020 07:00:00 AM EDT [facility] normal saline flush 0.9 % injection 3 mL 06/14/2020 07:00:00 AM EDT [facility] atorvastatin 10 MG Oral Tablet 04/23/2020 12:00:00 AM EST [facility] Lisinopril 2.5 MG Oral Tablet 04/23/2020 12:00:00 AM EST [facility] Metoprolol Tartrate 25 MG Oral Tablet 04/23/2020 12:00:00 AM EST [facility] Aspirin 81 MG Delayed Release Oral Tablet 02/26/2019 12:00:00 AM [facility] Metoprolol Tartrate 25 MG Oral Tablet 02/25/2019 12:00:00 AM EST [facility] Metoprolol Tartrate 25 MG Oral Tablet 02/25/2019 12:00:00 AM [facility] SwapnaJosemanny Delgadillo In Vitro Strip 02/20/2019 12:00:00 AM [facility]
[2020-12-18] MEDS ORDERED: cefTRIAXone SOD 2 GM in D5W MINI-BAG PLUS 50 ML IV ONE (12:55)
[2020-12-18 13:47] LABS: RSV AMPLIFICATION NEGATIVE (NEGATIVE)
[2020-12-18 15:05] LABS: OSMOLALITY SERUM 301 MOSM/KG (280-301)
[2020-12-18 15:14] LABS: ACETAMINOPHEN LEVEL < 2.0 UG/ML (10.0-30.0); ALBUMIN 2.6 GM/DL (3.2-5.2); ALT/SGPT 51 U/L (12-78); BILIRUBIN,DIRECT 0.5 MG/DL (0.0-0.2); BILIRUBIN,TOTAL 2.2 MG/DL (0.2-1.0); BLOOD UREA NITROGEN 24 MG/DL (7-18); CARBON DIOXIDE LEVEL 25 MEQ/L (21-32); CHLORIDE LEVEL 112 MEQ/L (98-107); CK-MB VALUE MASS 1.1 NG/ML (<3.6); CPK CREATINE PHOSPHOKINASE 137 U/L (26-192); CREATININE FOR GFR 1.67 MG/DL (0.55-1.30); ETHYL ALCOHOL (ETHANOL) < 0.003 % (0.000-0.010); GLOMERULAR FILTRATION RATE 31.2 (>32); GLUCOSE, FASTING 91 MG/DL (70-100); POTASSIUM SERUM 6.5 MEQ/L (3.5-5.1); SALICYLATE LEVEL < 1.7 MG/DL (5.0-30.0); SODIUM LEVEL 139 MEQ/L (136-145); THYROID STIMULATING HORMONE 0.089 uIU/ML (0.358-3.740); TOTAL PROTEIN 7.3 GM/DL (6.4-8.2); TROPONIN I < 0.02 NG/ML (< 0.10)
[2020-12-18] MEDS ORDERED: SUCR1TA PO (15:57)
[2020-12-18] MEDS ORDERED: MAGN1CAP PO (15:57)
[2020-12-18] MEDS ORDERED: HOME MED LIST COMPLETE! XX SCH (16:00)
[2020-12-18 18:25] LABS: CALCIUM LEVEL 8.7 MG/DL (8.8-10.2); CREATININE FOR GFR 1.43 MG/DL (0.55-1.30); GLOMERULAR FILTRATION RATE 37.3 (>32); POTASSIUM SERUM 5.5 MEQ/L (3.5-5.1)
[2020-12-18] MEDS ORDERED: ACETAMINOPHEN TAB 650MG DOSE (2X325MG) PO PRN (19:05)
[2020-12-18] MEDS ORDERED: MAALOX 30 ML SUSP *UDC PO PRN (19:05)
[2020-12-18] MEDS ORDERED: MOM 30ML SUSPENSION UDC PO PRN (19:05)
[2020-12-18] MEDS ORDERED: LACTULOSE 20 GM/30 ML SYRUP UD PO ONE (19:05)
[2020-12-18] MEDS ORDERED: ALBUTEROL SULFATE 2.5 MG/0.5 ML INH NEB SOLN INH PRN (19:05)
--- OUTSIDE RECORDS SUMMARY | 2020-12-18 19:33 | CCD ---
Author Author [facility] Organization [facility] Address Unknown Phone Unavailable Care Team Providers Care Network Professional Name Role Phone Dhruv Rico MD Unavailable [...] Unavailable Unavailable Glenroy Barrow MD Unavailable Unavailable PushpaGlenroy hooper MD Unavailable Unavailable Glenroy Barrow MD Unavailable Unavailable Glenroy Barrow MD Unavailable Unavailable Glenroy Barrow MD Unavailable Unavailable Glenroy Barrow MD Unavailable Unavailable Glenroy Barrow MD Unavailable Unavailable PushpaGlenroy hooper MD Unavailable Unavailable SomersetGlenroy hooper MD Unavailable Unavailable PushpaGlenroy hooper MD Unavailable Unavailable PushpaGlenroy MD Unavailable Unavailable PushpaGlenroy MD Unavailable Unavailable PushpaGlenroy MD Unavailable Unavailable PushpaGlenroy MD Unavailable Unavailable SomersetGlenroy MD Unavailable Unavailable SomersetGlenroy MD Unavailable Unavailable PushpaGlenroy MD Unavailable Unavailable SomersetGlenroy MD Unavailable Unavailable SomersetGlenroy MD Unavailable Unavailable SomersetGlenroy MD Unavailable Unavailable SomersetGlenroy MD Unavailable Unavailable SomersetGlenroy MD Unavailable Unavailable PushpaGlenroy MD Unavailable Unavailable SomersetGlenroy MD Unavailable Unavailable SomersetGlenroy MD Unavailable Unavailable SomersetGlenroy MD Unavailable Unavailable SomersetGlenroy MD Unavailable Unavailable SomersetGlenroy MD Unavailable Unavailable PushpaGlenroy MD Unavailable Unavailable SomersetGlenroy MD Unavailable Unavailable PushpaGlenroy MD Unavailable Unavailable SomersetGlenroy MD Unavailable Unavailable SomersetGlenroy MD Unavailable Unavailable SomersetGlenroy MD Unavailable Unavailable PushpaGlenroy MD Unavailable Unavailable PushpaGlenroy MD Unavailable Unavailable SomersetGlenroy MD Unavailable Unavailable SomersetGlenroy MD Unavailable Unavailable SomersetGlenroy MD Unavailable Unavailable PushpaGlenroy MD Unavailable Unavailable SomersetGlenroy MD Unavailable Unavailable SomersetGlenroy MD Unavailable Unavailable SomersetGlenroy MD Unavailable Unavailable PushpaGlenroy MD Unavailable Unavailable PushpaGlenroy MD Unavailable Unavailable PushpaGlenroy MD Unavailable Unavailable SomersetGlenroy MD Unavailable Unavailable PushpaGlenroy MD Unavailable Unavailable SomersetGlenroy MD Unavailable Unavailable PushpaGlenroy MD Unavailable Unavailable PushpaGlenroy MD Unavailable Unavailable SomersetGlenroy MD Unavailable Unavailable PushpaGlenroy MD Unavailable Unavailable SomersetGlenroy MD Unavailable Unavailable PushpaGlenroy MD Unavailable Unavailable SomersetGlenroy MD Unavailable Unavailable SomersetGlenroy MD Unavailable Unavailable SomersetGlenroy MD Unavailable Unavailable SomersetGlenroy MD Unavailable Unavailable SomersetGlenroy MD Unavailable Unavailable SomersetGlenroy MD Unavailable Unavailable PushpaGlenroy MD Unavailable Unavailable PushpaGlenroy MD Unavailable Unavailable SomersetGlenroy MD Unavailable Unavailable PushpaGlneroy MD Unavailable Unavailable PushpaGlenroy Young MD Unavailable [...] LEMUS PA-C Unavailable Unavailable PICKERAL JR, Rakel LEMUS [...] Unavailable El-Khally, A Ziad MD Unavailable Unavailable SomersetGlenroy MD Unavailable Unavailable SomersetGlenroy MD Unavailable Unavailable PushpaGlenroy MD Unavailable Unavailable PushpaGlenroy MD Unavailable Unavailable PushpaGlenroy MD Unavailable Unavailable SomersetGlenroy MD Unavailable Unavailable SomersetGlenroy MD Unavailable Unavailable SomersetGlenroy MD Unavailable Unavailable PushpaGlenroy MD Unavailable Unavailable PushpaGlenroy MD Unavailable Unavailable PushpaGlenroy MD Unavailable Unavailable PushpaGlenroy MD Unavailable Unavailable SomersetGlenroy MD Unavailable Unavailable PushpaGlenroy MD Unavailable Unavailable SomersetGlenroy MD Unavailable Unavailable SomersetGlenroy MD Unavailable Unavailable SomersetGlenroy MD Unavailable Unavailable SomersetGlenroy MD Unavailable Unavailable SomersetGlenroy MD Unavailable Unavailable SomersetGlenroy MD Unavailable Unavailable SomersetGlenroy MD Unavailable Unavailable SomersetGlenroy MD Unavailable Unavailable PushpaGlenroy MD Unavailable Unavailable SomersetGlenroy MD Unavailable Unavailable SomersetGlenroy MD Unavailable Unavailable PushpaGlenroy MD Unavailable Unavailable SomersetGlenroy MD Unavailable Unavailable PushpaGlenroy MD Unavailable Unavailable SomersetGlenroy MD Unavailable Unavailable PushpaGlenroy MD Unavailable Unavailable SomersetGlenroy MD Unavailable Unavailable SomersetGlenroy MD Unavailable Unavailable SomersetGlenroy MD Unavailable Unavailable PushpaGlenroy MD Unavailable Unavailable SomersetGlenroy MD Unavailable Unavailable SomersetGlenroy hooper MD Unavailable Unavailable SomersetGlenroy MD Unavailable Unavailable PushpaGlenroy MD Unavailable Unavailable SomersetGlenroy hooper MD Unavailable Unavailable PushpaGlenroy MD Unavailable Unavailable PushpaGlenroy MD Unavailable Unavailable PushpaGlenroy hooper MD Unavailable Unavailable SomersetGlenroy hooper MD Unavailable Unavailable PushpaGlenroy MD Unavailable Unavailable SomersetGlenroy MD Unavailable Unavailable SomersetGlenroy MD Unavailable Unavailable PushpaGlenroy MD Unavailable Unavailable SomersetGlenroy MD Unavailable Unavailable SomersetGlenroy MD Unavailable Unavailable PushpaGlenroy MD Unavailable Unavailable PushpaGlenroy MD Unavailable Unavailable PushpaGlenroy MD Unavailable Unavailable PushpaGlenroy MD Unavailable Unavailable PushpaGlenroy MD Unavailable Unavailable PushpaGlenroy MD Unavailable Unavailable SomersetGlenroy MD Unavailable Unavailable SomersetGlenroy hooper MD Unavailable Unavailable SomersetGlenroy MD Unavailable Unavailable SomersetGlenroy MD Unavailable Unavailable SomersetGlenroy MD Unavailable Unavailable PushpaGlenroy MD Unavailable Unavailable SomersetGlenroy MD Unavailable Unavailable SomersetGlenroy MD Unavailable Unavailable PushpaGlenroy MD Unavailable Unavailable PushpaGlenroy MD Unavailable Unavailable SomersetGlenroy MD Unavailable Unavailable PushpaGlenroy MD Unavailable Unavailable SomersetGlenroy MD Unavailable Unavailable SomersetGlenroy MD Unavailable Unavailable PushpaGelnroy MD Unavailable Unavailable SomersetGlenroy hooper MD Unavailable Unavailable SomersetGlenroy hooper MD Unavailable Unavailable SomersetGlenroy hooper MD Unavailable Unavailable SomersetGlenroy hooper MD Unavailable Unavailable PushpaGlenroy hooper MD Unavailable Unavailable PushpaGlenroy hooper MD Unavailable Unavailable PushpaGlenroy hooper MD Unavailable Unavailable SomersetGlenroy hooper MD Unavailable Unavailable SomersetGlenroy hooper MD Unavailable Unavailable SomersetGlenroy hooper MD Unavailable Unavailable SomersetGlenroy hooper MD Unavailable Unavailable SomersetGlenroy hooper MD Unavailable Unavailable SomersetGlenroy hooper MD Unavailable Unavailable SomersetGlenroy hooper MD Unavailable Unavailable PushpaGlenroy hooper MD [...] is protected by Article 27-F of the [facility] Public Health law. If you continue you may have access to information: Regarding HIV / AIDS; Provided by facilities licensed or operated by the [facility] Office of Mental Health; or Provided by the [facility] Office for People With Developmental Disabilities. If such information is present, then the following [facility] mandated warning applies: This information has [...] law may result in a fine or long-term sentence or both. A general authorization for the release of medical or other information is NOT sufficient authorization for further disc losure. Family History Family Member Name Family Member Gender Family Member Status Date o f Status Description Data Source(s) Unknown Male Condition [facility] Unknown Male Condition [facility] Unknown Male Condition [facility] Unknown Unknown Problem [facility] ([facility] Unknown Unknown Problem [facility]) Unknown [facility] () Unknown Male Problem [facility] Encounters Encounter Providers Location Date Indications Data Source(s ) Outpatient Attender: Nitin Rico MD Main Office 11/26/2020 02:00:00 PM EDT [facility] ([facility]) Outpatient Attender: Hector Oleary 0 11/15/2020 08:40:00 AM EDT [facility] ([facility] ) Outpatient Attender: ALLAN Oleary 0 09/03/2020 10:20:00 AM EDT [facility] ([facility] ) Outpatient Attender: Hector Oleary 0 07/16/2020 01:00:00 PM EDT [facility] ([facility] ) Outpatient Attender: Monica MOORE.ANURAG-SJYesenia.ANURAG 06/23 12:00:00 AM EDT - 07/15/2020 03:29:01 PM EDT [facility] Attender: Allie Christopher TinReferrer: Hector Barrow MD 07/04/2020 08:21:05 PM EDT [facility] Out[facility] Attender: Paul More MDAdmitter: Paul chanel MD ES1-SJ.CVAU 06/14/2020 06:07:00 AM EDT - 06/14/2020 02:29:00 PM EDT [facility] Patient discharged. Outpatient Attender: Monica Carpenter MD SJDaisyANURAG-SJP.ANURAG 05/23 01:33:06 PM EDT - 06/04/2020 02:34:25 PM EDT [facility] Outpatient Attender: Monica Carpenter MD SJDaisyANURAG-SJP.ANURAG 03/2020 12:00:00 AM EST - 04/23/2020 03:25:37 PM EST [facility] Outpatient Attender: Hector Barrow Vandewall 1 02:45:00 PM EDT [facility] ([facility] ) Outpatient Referrer: Monica SIGALAANURAG-SJP.ANURAG 10/24 12:00:00 AM EDT - 11/13/2019 02:54:55 PM EDT [facility] Outpatient Attender: Monica Carpenter MDReferrer: Maty SIGALAANURAG-SJP.ANURAG 11/13/2019 12:00:00 AM EDT - 11/13/2019 02:56:16 PM EDT [facility] Attender: Allie Christensen (Jack) MDReferrer: Jameson Barrow MD 10/20/2019 08:20:08 PM EDT [facility] Referrer: Hector Barrow MD 10/20/2019 08:20:0 8 PM EDT [facility] Immunizations Vaccine Date Status Description Data Source(s) Influenza, injectable, MDCK, preservative free, reynold [facility]ent 11/29/2020 11:39:00 AM EDT completed [facility] ([facility]) COVID-19 VACCINE Moderna 05/30/2020 12:00:00 AM EDT completed [facility] Vaccine Series Complete: YESThis Data wa s Submitted to [facility] Via [facility]. COVID-19 VACCINE Moderna 05/02/2020 12:00:00 AM EST completed [facility] Vaccine Series Complete: NOThis Data was Submitted to [facility] Via [employer]. Shingrix Zoster Vaccine (HZV), Recombinant, Subunit, A djuvanted 11/16/2019 08:34:00 AM EDT completed [facility] ([facility]) This CVX code allows reporting of a vacc ination when formulation is unknown (for example, when recording a Influenza vaccination when noted on a vaccination card) 11/16/2019 08:34:00 AM EDT completed AAMIREN T ([facility]) VARICELLA-ZOSTER GE/AS01B/PF 11/16/2019 12:00:00 AM EDT [...] Vaccine 11/29/2020 12:00:00 AM EDT completed [facility]) Medication administered onsite 62.5 mcg/actuation 11/23/2020 12:00:00 [...] 12:00:00 AM EDT ORAL active [facility] ([facility]) 25 mg 11/06/2020 12:00:00 AM EDT [...] TABLET BY MOUTH EVERY DAY SOLD: 11/19/2020 [email or web address] 25 mg 07/17/2020 12:00:00 AM EDT tablet 60 TAKE ONE-HALF TABLET BY MOUTH TWICE A DAY TAKE ONE-HALF TABLET BY MOUTH TWICE A DAY SOLD: 07/23/2020 [facility] pantoprazole 40 MG Delayed Release Oral Tablet PANTOPRAZOLE SODIUM 07/16/2020 12:00:00 AM EDT tablet,delayed release (DR/EC) 90 T DEBORAH ONE TABLET BY MOUTH TWICE A DAY TAKE ONE TABLET BY MOUTH TWICE A DAY SOLD: 07/16/2020 [facility] normal saline flush 0.9 % injection 3 mL 77672-027-87 06/14/2020 02:00:00 PM EDT 3 mL Intravenous active 3 mL , Intravenous, PROTOCOL, First dose on Wed06/14/20 at 1400, Pre-op
flush per protocol, D/C Main IV fluid if appropriate
[facility] Medication administered onsite iopamidol (ISOVUE-370) 76 % [id number] 06/14/2020 09:42:18 AM EDT active As needed, Starting on Wed06/14/20 at 0942, Intra-Proc edure [facility] Medication administered onsite 1 ML heparin sodium, porcine 1000 UNT/ML Injection hep vel (porcine) injection heparin (porcine) injection 06/14/2020 09:23:11 AM EDT active As needed, Starting on Wed06/14/20 at 0923, Intra-Procedure [facility] Medication administered onsite 4 ML Verapamil hydrochloride 2.5 MG/ML Injection verap marcus (ISOPTIN) injection verapamil (ISOPTIN) injection 06/14/2020 09:22:48 AM EDT active As needed, Starting on Wed06/14/20 at 0922, Intra-Procedure [facility] Medication administered onsite lidocaine 1 % injection [id number] 06/14/2020 09:21:26 AM EDT active As needed, Starting on Wed at 0921, Intra-Procedure [facility] Medication administered onsite normal saline flush 0.9 % injection 3 mL 00363-091-04 06/14/2020 07:00:00 AM EDT 3 mL Intravenous active 3 mL , Intravenous, Every 8 hours (scheduled), First dose on Wed06/14/20 at 0700, Pre-op
Rapid push positive pressure flushing shall be performed with a 10 cc normal saline syringe to check the PATENCY of a PIV site prior to any infusion therapy initiation unless resistance is met.
[facility] Medication administered onsite sodium chloride 0.9% (NS) infusion 9926-3433-90 06/14/2020 07:00:00 AM EDT 100 mL/h Intravenous active at 100 m L/hr, 100 mL/hr, Intravenous, Continuous, Starting on Wed06/14/20 at 0700, Pre-op
Start two hours prior to scheduled start time
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 Max of 1 dose per day.
[facility] Medication administered onsite normal saline flush 0.9 % injection 3 mL [id number] 06/14/2020 07:00:00 AM EDT 3 mL Intravenous active 3 mL , Intravenous, Every 8 hours (scheduled), First dose on Wed06/14/20 at 0700, Pre-op
Rapid push positive pressure flushing shall be performed with a 10 cc normal saline syringe to check the PATENCY of a PIV site prior to any infusion therapy initiation unless resistance is met.
[facility] Medication administered onsite Covid-19 vaccine, Unspecified 05/30/2020 12:00:00 AM EDT completed [facility] Medication administered onsite 25 mg [...] MOUTH TWICE A DAY SOLD: 05/14/2020 Gayathri Lum[facility] Covid-19 vaccine, Unspecified 05/02/2020 12:00:00 AM EST completed [facility] Medication administered onsite 550 mg [...] tablet (10 mg total) by mouth nightly [facility] Metoprolol Tartrate 25 MG Oral Tablet me toprolol tartrate (LOPRESSOR) 25 MG tablet metoprolol tartrate (LOPRESSOR) 25 MG tablet 04/23/2020 12:0 0:00 AM EST 12.5 mg Oral active Take 0.5 tablets (12.5 mg total) by mouth 2 (two) times a day [facility] Lisinopril 2.5 MG Oral Tablet lisinopril (PRINIVIL,ZES TRIL) 2.5 MG tablet lisinopril (PRINIVIL,ZESTRIL) 2.5 MG tablet 04/23/2020 12:00:00 AM EST 2.5 mg Oral active Take 1 tablet (2.5 m g total) by mouth daily [facility] pantoprazole 40 MG Delayed Release Oral [...] MOUTH TWO TIMES A DAY SOLD: 03/28/2020 [facility] pantoprazole 40 MG Delayed Release Oral Tablet [...] Streptococcus pneumoniae serotype 1 capsular antigen diphtheria PCC187 protein conjugate vaccine 0.0044 MG/ML / Streptococcus pneumoniae serotype 14 capsular antigen diphtheria [id number] protein conjugate vaccine 0.0044 MG/ML / Streptococcus pneumonia Prevnar 13 12/01/2019 12:00:00 AM EDT active [facility]) pantoprazole 40 MG Delayed Release Oral Tablet [...] active Take 1 tablet by mouth d [facility] Metoprolol Tartrate 25 MG Oral Tablet me toprolol tartrate (LOPRESSOR) 25 MG tablet metoprolol tartrate (LOPRESSOR) 25 MG tablet 02/25/2019 12:0 0:00 AM EST 12.5 mg Oral active Take 12.5 mg by mouth 2 (two) times a day [facility] 25 mg 02/25/2019 12:00:00 AM EST [...] 0.5 tablets by mouth Two Times Daily [facility] 25 mg 02/25/2019 12:00:00 AM EST tablet 30 TAKE ONE-HALF TABLET BY MOUTH TWICE A DAY MAXIMUM DAILY DOSE = 1 TAKE ONE-HALF TABLET BY MOUTH TWICE A DA Y MAXIMUM DAILY DOSE = 1 SOLD: 11/06/2019 [facility] One[facility] Verio In Vitro Strip 51060-470-47 02/20/2019 12:00:00 AM EST active #200, test 6-8 times daily, E11. 65, 1 [facility] Insurance Providers Payer name Policy type / Coverage type Policy ID Covered alliance party ID Covered alliance party's relationship to sánchez Policy Sánchez Plan Information [id number] MEDICARE [id number] SP [id number] MEDICARE [id number] xxxxxxxxxxx [id number] MEDICARE [id number] Laila [id number] [facility] [id number] 0 [id number] MEDICARE A [id number] Self [id number] MEDICARE [id number] SP [id number] Medicare Natl Govt Servic Medicare Primary [id number] Self [id number] Medicare Natl Govt Servic Medicare Primary [id number] Self [id number] [facility] Primary [id number] Self [id number] Medicare Natl [facility] Primary [id number] Self [id number] Medicare Natl [facility] Primary [id number] Self [id number] Medicare Natl Govt Serv Medicare Primary [id number] Self AARP HEALTH CARE OPTIONS [id number] SP [id number] [place] 306/806 [id number] SP [id number] [place] 306/806 [id number] SP [id number] AARP U [id number] Self [id number] AARP HE[employer] CARE OPTIONS [id number] SP [id number] AARP HE[employer] CARE OPTIONS [id number] SP [id number] MEDICARE [id number] SP [id number] [facility] Opt Medigap Part B [id number] Self [id number] [facility] [facility] Opt Medigap Part B [id number] Self [id number] [facility] [facility] Opt Medigap Part B [id number] Self [id number] [facility] [facility] Opt Medigap Part B [id number] Self [id number] [facility] [facility] Opt Medigap Part B [id number] Self [id number] [facility] [facility] Opt Medigap Part B Plan [id number] Self Plan F [facility] [id number] xxxxxxxxxxx [id number] Aarp Health Care Option [id number] [facility] [id number] Laila [id number] AARP U [id number] Self [id number] AARP U [id number] Self [id number] SELF PAY UNAVAILABLE UNAVAILA BLE Medicare [place] Medicare Primary [id number] Self [id number] MEDICARE C [id number] S [id number] [id number] AARP O [id number] S [id number] [place] PART B C [id number] S [id number] Aarp Medigap Part B [id number] Self [id number] EXCELLUS BCBS P [id number] S [id number] Aarp Medigap Part B [id number] Self [id number] Medicare [place]/NGS Medicare Primary [id number] Self [id number] Aarp Health Care Options Medigap Part B [id number] Self [id number] MEDICARE C [id number] S [id number] Medicare [place] Medicare Primary [id number] Self [id number] [facility] Health Care Options [facility] Part B [id number] Self [id number] Medicare [place] Medicare Primary [id number] Self [id number] Medicare [place]/[facility] Medicare Primary [id number] Self [id number] [facility] Part B [id number] Self [id number] Problems, Conditions, and Diagnoses Code Display Name Description Problem Type Effective Dates Data Source(s) D64.9 Anemia, unspecified Anemia, unspecified Diagnosis 0 07/15/2020 02:33:19 PM EDT [facility] E78.2 Mixed hyperlipidemia Mixed hyperlipidemia Diagnosis 07/15/2020 02:33:19 PM EDT [facility] I35.0 Nonrheumatic aortic (valve) stenosis Nonrheumati c aortic (valve) stenosis Diagnosis 07/15/2020 02:33:19 PM EDT [facility] K70.30 Alcoholic cirrhosis of liver without asc ites Alcoholic cirrhosis of liver without asc Diagnosis 07/15/2020 02:33:19 PM EDT [facility] I21.4 Non-ST elevation (NSTEMI) myocardial inf arction Non-ST elevation (NSTEMI) myocardial inf Diagnosis 06/14/2020 06:07:00 AM EDT [facility] E87.6 Hypokalemia Hypokalemia Diagnosis 06/14/2020 06:07:00 AM EDT [facility] 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) Iron deficiency anemia secondary to bloo Diagnosis 06/14/2020 06:07:00 AM EDT [facility] [id number] Upper gastrointestinal bleeding Upper gastrointe stinal bleeding Problem 11/26/2020 12:00:00 AM EDT [facility] E87.6 Hypokalemia Hypokalemia [id number] 06/06/2020 12:00:00 AM EDT [facility] D50.0 Iron deficiency anemia due to chronic bl ood loss Iron deficiency anemia due to chronic blood loss [id number] 06/06/2020 12:00:00 AM EDT [facility] K70.30 Alcoholic cirrhosis of liver without asc ites Alcoholic cirrhosis of liver without ascites [id number] 06/06/2020 12:00:00 AM EDT [facility] Surgeries/Procedures Procedure Description Date Indications Data Source(s) Endoscopy Upper GI Control Hemorrhage 12/11/2020 12:00 :00 AM ED[facility] OFFICE OUTPATIENT NEW 30 MINUTES 11/26/2020 12:00:00 A M EDT [facility] ([facility]) Trans Care SRV W/I 14D Of DC, Comm W/I 2 Dys Med Rec 11/15/2020 12:00:00 AM EDT [facility] ([facility] ) Aparicio Cre SRV W/I 7 Days Of DC, Comm W/I 2 Dys Med Rec 09/03/2020 12:00:00 AM EDT [facility] ([facility] ) OFFICE OUTPATIENT VISIT 25 MINUTES 07/16/2020 12:00:00 AM EDT [facility] DUPLEX SCAN EXTRACRANIAL ART COMPL BI STUDY <td>US CAR OTID BILATERAL</td><td>Pending Discharge</td><td>06/14/2020 12:41 PM EDT</td><td></td><td> </td> 06/14/2020 12:41:14 PM EDT [facility] BEDSIDE PULMONARY FUNCTION TEST <td>BEDSIDE PULMONARY FUNCTION TEST</td><td>Routine</td><td>06/14/2020 11:15 AM EDT</td><td></td><td></td> 06/14/2020 11:15:21 AM EDT [facility] RADEX SPINE ENTIRE SURVEY STD ANTEROPOST&LAT [...] infarction)Anemia, unspecified typeMixed hyperlipidemiaSevere aortic valve stenosis [facility] Hypokalemia Iron deficiency anemia due to chronic bl ood loss Alcoholic cirrhosis of liver without asc ites NSTEMI (non-ST elevated myocardial infar ction) Anemia, unspecified type Mixed hyperlipidemia Severe aortic valve stenosis ECG ROUTINE ECG W/LEAST 12 LDS TRCG ONLY W/O I&R <td>E CG 12- LEAD</td><td>Routine</td><td>06/14/2020 6:36 AM EDT</td><td></td><td></td> 06/14/2020 06:36:04 AM EDT [facility] POCT AMB EKG <td>POCT AMB EKG</td><td>Rou grace</td><td>06/04/2020 2:38 PM EDT</td><td> Severe aortic valve stenosis</td><td> </td> 06/04/2020 06:38:00 PM EDT Severe aortic valve stenosis [facility] Severe aortic valve stenosis ECG ROUTINE ECG W/LEAST 12 LDS W/I&R <td>POCT AMB EKG</td><td>Routine</td><td>04/23/2020 5:22 PM EST</td><td> Severe aortic valve stenosis</td><td> </td> 04/23/2020 10:22:00 PM EST Severe aortic valve stenosis [facility] [facility] Severe [facility] valve stenosis IRON BINDING CAPACITY <td>IRON BINDING</td><td>Routine</td><td>12/01/2019</td><td></td><td></td> 12/01/2019 12:00:00 AM EDT [facility] BLOOD COUNT COMPLETE AUTO&AUTO DIFRNTL WBC COUNT <td>C BC AND DIFFERENTIAL</td><td>Routine</td><td>12/01/2019</td><td></td><td> </td> 12/01/2019 12:00:00 AM EDT [facility] IRON <td>IRON</td><td>Routine</td ><td>12/01/2019</td><td></td><td> </td> 12/01/2019 12:00:00 AM EDT [facility] HEPATIC FUNCTION PANEL <td>HEPATIC FUNCTION PANEL</td><td>Routine</td><td>12/01/2019</td><td></td><td> </td> 12/01/2019 12:00:00 AM EDT [facility] BASIC METABOLIC PANEL CALCIUM TOTAL <td>BASIC METABOLI C PANEL</td><td>Routine</td><td>12/01/2019</td><td></td><td> </td> 12/01/2019 12:00:00 AM EDT [facility] Results ID Date Data Source [id number] 12/11/2020 03:28:00 PM EDT [facility]QU[facility] ([facility]) Name Value Range Interpretation Code Description Data Cecy rce(s) Supporting Document(s) Red Blood Count 3.09 10 4.00-5.40 [facility] ([facility]) White Blood Count 4.9 10 4.0-10.0 [facility] ([facility]) Mean Corpuscular Volume 100.3 fl 80.0-96.0 [facility] ([facility]) Hematocrit 31.0 % 36.0-47.0 [facility] ([facility]) Hemoglobin 9.7 g/dL 12.0-15.5 [facility] Mean Corpuscular Hemoglobin 31.4 pg 27.0-33.0 ME DENT ([facility]) Mean Corpuscular HGB Conc 31.3 g/dL 32.0-36.5 MEDE NT ([facility]) Platelet Count, Automated 64 10 150-450 MEDE NT ([facility]) Red Cell Distribution Width 18.6 % 11.5-14.5 CA DENT ([facility]) Nucleated Red Blood Cell % 0.0 % 0-0 MED E[facility] ([facility]) ID Date Data Source [id number] 12/11/2020 03:28:00 PM EDT [facility] ([facility]) Name Value Range Interpretation Code Description Data Cecy rce(s) Supporting Document(s) Platelets reticulated/100 platelets in Blood by Automated count 12.3 % 0.0-9.59 [facility]) ID Date Data Source [id number] 12/11/2020 03:28:00 PM EDT [facility] ([facility]) Name Value Range Interpretation Code Description Data Cecy rce(s) Supporting Document(s) Platelets reticulated/100 platelets in Blood by Automated count 12.3 % 0.0-9.59 [facility] ([facility]) improved from labs in July see in office in 6 weeks ID Date Data Source [id number] 12/11/2020 03:28:00 PM EDT [facility] Name Value Range Interpretation Code Description [...] in 6 weeks ID Date Data Source [id number] 12/06/2020 09:20:00 AM EDT [facility] Name Value Range Interpretation Code Description Data Cecy rce(s) Supporting Document(s) Coronavirus 2019 Nasopharygeal Laboratory test result [facility] ASSAY INFORMATION: Real Time RT-PCR NOTE: The COVID-19 assay has been cleared by the U.S. Food and Drug Administration under the Emergency Use Authorization (EUA). [employer] [facility] are designated as high complexity laboratories by the Clinical Laboratory Improvement Amendments of 1988(CLIA) and are qualified to perform this test. Not Detected ID Date Data Source [id number] 12/06/2020 09:20:00 AM EDT [facility] Name Value Range Interpretation Code Description Data Cecy rce(s) Supporting Document(s) SARS-CoV-2 (COVID-19) RNA [Presence] in Respiratory specimen by IMTALI with probe detection Not Detected [facility] This lab was ordered by [facility] and reported by [employer]. ID Date Data Source [id number] 11/29/2020 10:56:00 AM EDT [facility] ([facility]) Name Value Range Interpretation Code Description Data Cecy rce(s) Supporting Document(s) Leukocytes [#/volume] in Blood by Automated count 3.7 x10*3/UL 4.1-10 .9 [facility] ([facility]) Erythrocytes [#/volume] in Blood by Automated count 3.29 x10*6/UL 4.2 0-6.30 [facility] ([facility]) Hemoglobin [Mass/volume] in Blood 10.2 g/dL 12.0-18.0 [facility] ([facility]) Hematocrit [Volume Fraction] of Blood by Automated count 30.2 % 3 7.0-51.0 [facility] ([facility]) MCV 91.8 fL 80.0-97.0 [facility] [facility]) MCH 30.9 pg 26.0-32.0 [facility] ([facility]) Platelets [#/volume] in Blood by Automated count 55 x10*3/UL 140-440 [facility] ([facility] NOTE: RESULT VERIFIED. MCHC 33.7 g/dL 31.0-38.0 [facility] ([facility]) Erythrocyte distribution width [Ratio] by Automated count 15.9 % 11.6-13.7 [facility] ([facility]) Lymph % 29.2 % 10.0-58.5 [facility] ([place] [facility]) MPV 10.6 FL 7.8-11.0 [facility] ([facility]) Neut % 62.7 % 37.0-92.0 [facility] ([place] [facility]) Mid % 8.1 % 1.7-9.3 [facility] ([place] [facility]) Lymph # 1.1 x10*3/UL 0.6-4.1 [facility] ([facility]) Mid # 0.3 x10*3/UL 0.1-0.6 [facility] ([facility]) Neut # 2.3 x10*3/UL 2.0-7.8 [facility] ([facility]) ID Date Data Source [id number] 11/22/2020 10:35:00 AM EDT [facility] ([facility]) Name Value Range Interpretation Code Description Data Cecy rce(s) Supporting Document(s) Erythrocytes [#/volume] in Blood by Automated count 3.50 x10*6/UL 4.2 0-6.30 [facility] ([facility]) Leukocytes [#/volume] in Blood by Automated count 3.9 x10*3/UL 4.1-10 .9 [facility] ([facility]) Hemoglobin [Mass/volume] in Blood 10.6 g/dL 12.0-18.0 [facility] ([facility]) MCV 92.1 fL 80.0-97.0 [facility] ([facility]) Hematocrit [Volume Fraction] of Blood by Automated count 32.2 % 3 7.0-51.0 [facility] ([facility]) MCH 30.4 pg 26.0-32.0 [facility] ([place] [facility]) Erythrocyte distribution width [Ratio] by Automated count 15.3 % 11.6-13.7 [facility] ([facility]) MCHC 33.0 g/dL 31.0-38.0 [facility] ([facility]) MPV 10.7 FL 7.8-11.0 [facility] ([facility]) Platelets [#/volume] in Blood by Automated count 69 x10*3/UL 140-440 [facility] ([facility]) NOTE: RESULT VERIFIED. Lymph % 28.7 % 10.0-58.5 [facility] ([place] [facility]) Mid % 7.0 % 1.7-9.3 [facility] ([place] [facility]) Neut % 64.3 % 37.0-92.0 [facility] ([place] [facility]) Lymph # 1.1 x10*3/UL 0.6-4.1 [facility] ([facility]) Mid # 0.3 x10*3/UL 0.1-0.6 [facility] ([facility]) Neut # 2.5 x10*3/UL 2.0-7.8 [facility] ([facility]) ID Date Data Source [id number] 11/15/2020 09:14:00 AM EDT [facility] ([facility]) Name Value Range Interpretation Code Description Data Cecy rce(s) Supporting Document(s) Total Iron Binding Capacity 303 ug/dL 250-450 CA DENT ([facility]) Percent Saturation 34.0 % 13.2-45.0 [facility] ([facility]) Iron (Fe) 103 ug/dL 50-170 [facility] ([facility]) ID Date Data Source [id number] 11/15/2020 09:14:00 AM EDT [facility] ([facility]) Name Value Range Interpretation Code Description Data Cecy rce(s) Supporting Document(s) AB Screen (Indirect Adilia)Vis Laboratory test result [facility] ([facility]) Blood Type Laboratory test result [facility] ([facility]) ID Date Data Source [id number] 11/15/2020 09:13:00 AM EDT [facility] ([facility]) Name Value Range Interpretation Code Description Data Cecy rce(s) Supporting Document(s) Glucose [Mass/volume] in Serum or Plasma 101 mg/dL 74-99 [facility] ([facility]) 100-125 mg/dL PRE-DIABETES/FASTING >126 mg/dL DIABETES/FASTING Urea nitrogen [Mass/volume] in Serum or Plasma 9 mg/dL 7-18 [facility] ([facility]) Creatinine 0.9 mg/dL 0.6-1.3 [facility] Sodium [Moles/volume] in Serum or Plasma 143 meq/L 136-145 [facility] ([facility]) Carbon dioxide, total [Moles/volume] in Serum or Plasma 29 meq/L 21 -32 [facility] ([facility]) Potassium [Moles/volume] in Serum or Plasma 4.4 meq/L 3.5-5.1 [facility] ([facility]) Chloride [Moles/volume] in Serum or Plasma 110 meq/L 98-107 [facility] ([facility]) Calcium [Mass/volume] in Serum or Plasma 8.5 mg/dL 8.5-10.1 [facility] ([facility]) Total Bilirubin 1.4 mg/dL 0.2-1.0 [facility] ([facility]) Alkaline phosphatase isoenzyme [Units/volume] in Serum or Pl asma 271 mg/dL 46-116 [facility] ([facility]) NOTE: ALK PHOS,T.BILI,AST,ALBU,T.PROTEIN...VERIFIED Alanine aminotransferase [Enzymatic activity/volume] in Seru m or Plasma 28 U/L 12-78 [facility] ([facility]) Aspartate aminotransferase [Enzymatic activity/volume] in Serum or Plasma 43 U/L 15-37 [facility] ([facility] Proteinase 3 Ab [Units/volume] in Serum 6.2 g/dL 6.4-8.2 [facility] ([facility]) A/G Ratio 0.59 CALC 1.00-1.90 [facility] ([facility]) Albumin [Mass/volume] in Serum or Plasma 2.3 g/dL 3.4-5.0 [facility] ([facility]) Glomerular filtration rate/1.73 sq M pre dicted among non-blacks [Volume Rate/Area] in Serum or Plasma by Creatinine-based formula (MDRD) 60 mL/min [facility] ([facility] Glomerular filtration rate/1.73 sq M pre dicted among blacks [Volume Rate/Area] in Serum or Plasma by Creatinine-based formula (MDRD) Laboratory test result [facility] ([facility]) <content>CHRONIC KIDNEY DISEASE STAGING PER NKF</content>
<content></content>
<content>STAGE I & II GFR >= 60 NORMAL TO MILDLY DECREASED</content>
<content>STAGE III GFR 30-59 MODERATELY DECREASED</content>
<content>STAGE IV GFR 15-29 SEVERELY DECREASED</content>
<content>STAGE V GFR <15 VERY LITTLE GFR LEFT</content>
<content>ESRD GFR <15 ON ASSISTANT TRACK AND FIELD COACH</content>
<content></content> ID Date Data Source [id number] 11/15/2020 09:13:00 AM EDT [facility] ([facility]) Name Value Range Interpretation Code Description Data Cecy rce(s) Supporting Document(s) Magnesium 1.5 mg/dL 1.8-2.4 [facility] ([facility]) ID Date Data Source [id number] 11/15/2020 09:13:00 AM EDT [facility] ([facility]) Name Value Range Interpretation Code Description Data Cecy rce(s) Supporting Document(s) Leukocytes [#/volume] in Blood by Automated count 4.0 x10*3/UL 4.1-10 .9 [facility] ([facility] Erythrocytes [#/volume] in Blood by Automated count 3.37 x10*6/UL 4.2 0-6.30 [facility] ([facility] Hemoglobin [Mass/volume] in Blood 10.2 g/dL 12.0-18.0 [facility] ([facility] Hematocrit [Volume Fraction] of Blood by Automated count 30.8 % 3 7.0-51.0 [facility] ([facility]) MCV 91.5 fL 80.0-97.0 [facility] ([place] [facility]) MCH 30.5 pg 26.0-32.0 [facility] ([place] [facility]) MCHC 33.3 g/dL 31.0-38.0 [facility] ([facility]) Erythrocyte distribution width [Ratio] by Automated count 15.5 % 11.6-13.7 [facility] ([facility]) Platelets [#/volume] in Blood by Automated count 55 x10*3/UL 140-440 [facility] ([facility]) MPV 9.0 FL 7.8-11.0 [facility] ([place] [facility]) Mid % 4.9 % 1.7-9.3 [facility] ([place] [facility]) Lymph % 18.7 % 10.0-58.5 [facility]) Neut % 76.4 % 37.0-92.0 [facility] ([place] [facility]) Mid # 0.2 x10*3/UL 0.1-0.6 [facility] ([facility]) Lymph # 0.7 x10*3/UL 0.6-4.1 [facility] ([facility]) Neut # 3.1 x10*3/UL 2.0-7.8 [facility] ([facility]) ID Date Data Source [id number] 11/07/2020 05:48:00 PM EDT [facility] ([facility]) Name Value Range Interpretation Code Description Data Cecy rce(s) Supporting Document(s) Red Blood Count 2.45 10 4.00-5.40 [facility] ([facility]) White Blood Count 4.2 10 4.0-10.0 [facility] ([facility]) Hematocrit 24.7 % 36.0-47.0 [facility]) Hemoglobin 7.6 g/dL 12.0-15.5 [facility] ([facility]) Mean Corpuscular Volume 100.8 fl 80.0-96.0 [facility] ([facility]) Mean Corpuscular HGB Conc 30.8 g/dL 32.0-36.5 MEDE NT ([facility]) Mean Corpuscular Hemoglobin 31.0 pg 27.0-33.0 CA D[facility] ([facility]) Red Cell Distribution Width 15.7 % 11.5-14.5 CA [facility] ([facility]) Platelet Count, Automated 42 10 150-450 MEDE NT ([facility]) Neutrophils % 53.2 % 36.0-66.0 [facility] ([facility]) [place] % 18.8 % 2.0-8.0 [facility]) Lymph % 22.1 % 24.0-44.0 [facility]) Eos % 5.5 % 0.0-3.0 [facility] [facility] Baso % 0.2 % 0.0-1.0 [facility] ([place] [facility]) Immature Granulocyte % 0.2 % 0-3.0 [facility] ([facility]) Nucleated Red Blood Cell % 0.0 % 0-0 MED ENT ([facility]) Neutrophils # 2.2 10 1.5-8.5 [facility] ([facility]) Lymph # 0.9 10 1.5-5.0 [facility] ([place] [facility]) [place] # 0.8 10 0.0-0.8 [facility] ([place] [facility]) Eos # 0.2 10 0.0-0.5 [facility] ([place] [facility]) Baso # 0.0 10 0.0-0.2 [facility] ([place] [facility]) ID Date Data Source [id number] 11/07/2020 05:48:00 PM EDT [facility] ([facility]) Name Value Range Interpretation Code Description Data Cecy rce(s) Supporting Document(s) Platelets reticulated/100 platelets in Blood by Automated count 14.9 % 0.0-9.59 [facility] ([facility] ID Date Data Source [id number] 11/07/2020 04:55:00 PM EDT [facility] ([facility]) Name Value Range Interpretation Code Description Data Cecy rce(s) Supporting Document(s) Laboratory test finding (navigational concept) 0.01 ng/mL 0.00-0.08 [facility] ([facility]) ID Date Data Source [id number] 11/07/2020 04:34:00 PM EDT [facility] ([facility] Name Value Range Interpretation Code Description Data Cecy rce(s) Supporting Document(s) Venous PH 7.403 units 7.330-7.430 [facility] ([facility]) Venous Partial Pressure Co2 45.9 mmHg 38.0-50.0 [facility] ([facility]) Venous Hco3 28.0 meq/L 23.0-27.0 [facility] ([facility]) Venous Total Co2 29.4 meq/L 24.0-28.0 [facility] ([facility]) Venous Partial Pressure O2 141.5 mmHg 30.0-50.0 [facility] ([facility]) Venous Standard Hco3 27.1 meq/L [facility] ( [facility]) Venous Base Excess 2.9 [facility] ([facility]) Venous O2 Saturation 98.8 % 60.0-80.0 [facility] ([facility]) ID Date Data Source [id number] 11/07/2020 04:34:00 PM EDT [facility] ([facility]) Name Value Range Interpretation Code Description Data Cecy rce(s) Supporting Document(s) Alkaline Phosphatase 220 U/L 45-117 [facility] ([facility]) Alt/SGPT 30 IU/L 0-32 [facility] ([place] [facility]) Ast/Sgot 45 IU/L [facility] ([place] [facility]) Bilirubin,Total 1.6 mg/dL 0.2-1.0 [facility] ([facility]) Bilirubin,Direct 0.6 mg/dL 0.0-0.2 [facility] ([facility]) Albumin 2.2 GM/DL 3.2-5.2 [facility] ([place] [facility]) Total Protein 6.0 GM/DL 6.4-8.2 [facility] ([facility]) Albumin/Globulin Ratio 0.6 1.2-2.2 [facility] ([facility]) ID Date Data Source [id number] 11/07/2020 04:34:00 PM EDT [facility] ([facility]) Name Value Range Interpretation Code Description Data Cecy rce(s) Supporting Document(s) Blood Urea Nitrogen 11 mg/dL 7-18 [facility] ([facility]) Glucose, Fasting 99 mg/dL 70-100 [facility] ([facility]) Creatinine For GFR 0.82 mg/dL 0.55-1.30 [facility] ([facility]) Glomerular Filtration Rate Laboratory test [facility]) <content>Units are mL/min/1.73 m2</content>
<content></content>
<content>Chronic Kidney Disease Staging per NKF:</content>
<content></content>
<content>Stage I & II GFR >=60 Normal to Mildly Decreased</content>
<content>Stage III GFR 30- 59 Moderately Decreased</content>
<content>Stage IV GFR 15-29 Severely Decreased</content>
<content>Stage V GFR <15 Very Little GFR Left</content>
<content>ESRD GFR <15 on ASSISTANT TRACK AND FIELD COACH</content>
<content></content> Sodium Level 140 meq/L 136-145 [facility] ([facility]) Potassium Serum 5.0 meq/L 3.5-5.1 [facility] ([facility]) Carbon Dioxide Level 27 mmol/L 20-29 [facility] ([facility]) Chloride Level 111 meq/L 98-107 [facility] ([facility]) Anion Gap 2 meq/L 8-16 [facility] [facility]) Calcium Level 8.1 mg/dL 8.8-10.2 [facility] ([facility]) ID Date Data Source [id number] 11/07/2020 04:34:00 PM EDT [facility] ([facility]) Name Value Range Interpretation Code Description Data Cecy rce(s) Supporting Document(s) Natriuretic peptide.B prohormone N-Terminal [Mass/volu me] in Serum or Plasma 901 pg/mL [facility] Thyrotropin [Units/volume] in Serum or Plasma by Detec tion limit <= 0.05 mIU/L Laboratory test result 0.358-3.740 [facility] ([facility]) ID Date Data Source [id number] 11/07/2020 04:34:00 PM EDT [facility] Name Value Range Interpretation Code Description Data Cecy rce(s) Supporting Document(s) Respiratory Panel Laboratory test result [facility] ([facility] This respiratory PCR panel detects Influ [...] - SARS-CoV-2 (COVID19) ID Date Data Source [id number] 11/07/2020 04:34:00 PM EDT [facility] ([facility]) Name Value Range Interpretation Code Description Data Cecy e(s) Supporting Document(s) CPK Creatine Phosphokinase 105 U/L 26-192 [facility] ([facility]) CK-MB Value Mass 1.2 ng/mL [facility] MB/CK Relative Index 1.14 [facility] ([facility] <content>DIAGNOSIS CRITERIA</content>
<content>MMB ng/ml Relative Index (RI)</content>
<content>NON-AMI < or = 5 N/A</content>
<content>ZEPEDA ZONE > 5 < or = 4</content>
<content>AMI > 5 > 4</content>
<content></content> Troponin I Laboratory test result [facility] ([facility]) <content>Troponin I Reference Interval f or [employer]ens [place] LOCI:</content>
<content></content>
<content>99th Percentile= 0.00-0.045 ng/ml</content>
<content></content>
<content>Risk Stratification:</content>
<content><= 0.10 ng/ml Decreased Risk for Adverse Clinical</content>
<content>Events.</content>
<content>0.10-1.50 ng/ml Increased Risk for Adverse Clinical</content>
<content>Events. Evaluation of additional</content>
<content>criterion and/or repeat testing in 2-6</content>
<content>hours is suggested to rule out myocardial</content>
<content>damage.</content>
<content>>= 1.50 ng/ml Indicative of Myocardial Injury.</content>
<content></content> ID Date Data Source [id number] 11/07/2020 04:34:00 PM EDT [facility] Name Value Range Interpretation Code Description Data Cecy rce(s) Supporting Document(s) SARS-CoV-2 (COVID 19) NEGATIVE - SARS-CoV-2 (COVID19) [facility] This lab was ordered by [facility] a nd reported by [facility]. ID Date Data Source [id number] 09/03/2020 10:49:00 AM EDT [facility] ([facility]) Name Value Range Interpretation Code Description Data Cecy rce(s) Supporting Document(s) Glucose [Mass/volume] in Serum or Plasma 148 mg/dL 74-99 [facility] ([facility]) 100-125 mg/dL PRE-DIABETES/FASTING >126 mg/dL DIABETES/FASTING Urea nitrogen [Mass/volume] in Serum or Plasma 6 mg/dL 7-18 [facility] ([facility]) Sodium [Moles/volume] in Serum or Plasma 143 meq/L 136-145 [facility] ([facility]) Creatinine 0.9 mg/dL 0.6-1.3 [facility] ([facility]) Carbon dioxide, total [Moles/volume] in Serum or Plasma 32 meq/L 21 -32 [facility] ([facility]) Potassium [Moles/volume] in Serum or Plasma 4.1 meq/L 3.5-5.1 [facility] ([facility]) Chloride [Moles/volume] in Serum or Plasma 107 meq/L 98-107 [facility] ([facility]) Calcium [Mass/volume] in Serum or Plasma 8.3 mg/dL 8.5-10.1 [facility] ([facility]) Glomerular filtration rate/1.73 sq M pre dicted among non-blacks [Volume Rate/Area] in Serum or Plasma by Creatinine-based formula (MDRD) 60 mL/min [facility] ([facility]) Glomerular filtration rate/1.73 sq M pre dicted among blacks [Volume Rate/Area] in Serum or Plasma by Creatinine-based formula (MDRD) Laboratory test result [facility] ([facility] <content>CHRONIC KIDNEY DISEASE STAGING PER NKF</content>
<content></content>
<content>STAGE I & II GFR >= 60 NORMAL TO MILDLY DECREASED</content>
<content>STAGE III GFR 30-59 MODERATELY DECREASED</content>
<content>STAGE IV GFR 15-29 SEVERELY DECREASED</content>
<content>STAGE V GFR <15 VERY LITTLE GFR LEFT</content>
<content>ESRD GFR <15 ON ASSISTANT TRACK AND FIELD COACH</content>
<content></content> ID Date Data Source [id number] 09/03/2020 10:49:00 AM EDT [facility] ([facility]) Name Value Range Interpretation Code Description Data Cecy rce(s) Supporting Document(s) Leukocytes [#/volume] in Blood by Automated count 3.7 x10*3/UL 4.1-10 .9 [facility] ([facility] NOTE: CBC AND PLATELET VEREIFIED Erythrocytes [#/volume] in Blood by Automated count 3.53 x10*6/UL 4.2 0-6.30 [facility] ([facility] Hemoglobin [Mass/volume] in Blood 10.1 g/dL 12.0-18.0 [facility] ([facility] Hematocrit [Volume Fraction] of Blood by Automated count 31.0 % 3 7.0-51.0 [facility] ([facility] MCV 87.6 fL 80.0-97.0 [facility] ([place] [facility]) MCH 28.8 pg 26.0-32.0 [facility] ([facility]) MCHC 32.8 g/dL 31.0-38.0 [facility] ([facility]) Erythrocyte distribution width [Ratio] by Automated count 15.8 % 11.6-13.7 [facility] ([facility] MPV 10.8 FL 7.8-11.0 [facility] ([facility]) Platelets [#/volume] in Blood by Automated count 49 x10*3/UL 140-440 [facility] ([facility]) Lymph % 24.1 % 10.0-58.5 [facility] ([place] [facility]) Mid % 6.6 % 1.7-9.3 [facility] ([place] [facility] [facility]) Neut % 69.3 % 37.0-92.0 [facility] ([place] [facility]) Neut # 2.6 x10*3/UL 2.0-7.8 [facility] ([facility]) Mid # 0.2 x10*3/UL 0.1-0.6 [facility] ([facility]) Lymph # 0.9 x10*3/UL 0.6-4.1 [facility] ([facility]) ID Date Data Source [id number] 08/28/2020 12:09:00 AM EDT [facility] Name Value Range Interpretation Code Description Data Cecy rce(s) Supporting Document(s) SARS coronavirus 2 RNA [Presence] in Res piratory specimen by MITALI with probe detection NEGATIVE [facility] This lab was ordered by [facility] a nd reported by [facility]. ID Date Data Source [id number] 07/16/2020 01:35:00 PM EDT [facility] ([facility]) Name Value Range Interpretation Code Description Data Cecy rce(s) Supporting Document(s) Ammonia [Mass/volume] in Blood 64 uMOL/L [facility] ([facility]) ID Date Data Source [id number] 07/16/2020 01:35:00 PM EDT [facility] ([facility]) Name Value Range Interpretation Code Description Data Cecy rce(s) Supporting Document(s) Prothrombin Time 16.9 s 12.5-14.3 [facility] ([facility]) Inr 1.34 [facility] ([place] [facility] THERAPUTIC HUMAN INR VALUES INDICATIONS NORMAL RANGES PROPHYLAXIS/TREATMENT OF: VENOUS THROMBOSIS 2.0-3.0 PULMONARY EMBOLISM 2.0-3.0 PREVENTION OF SYSTEMIC EMBOLISM FROM: TISSUE HEART VALVES 2.0-3.0 ACUTE MYOCARDIAL INFARCTION 2.0-3.0 VALVULAR HEART DISEASE 2.0-3.0 ATRIAL FIBRILLATION 2.0-3.0 MECHANICAL VALVES(HIGH RISK) 2.5-3.5 RECURRENT MYOCARDIAL INFARCTION 2.5-3.5 ID Date Data Source [id number] 07/16/2020 01:35:00 PM EDT [facility] ([facility]) Name Value Range Interpretation Code Description Data Cecy rce(s) Supporting Document(s) Iron (Fe) 64 ug/dL 50-170 [facility]) Percent Saturation 17.4 % 13.2-45.0 [facility] ([facility]) Total Iron Binding Capacity 367 ug/dL 250-450 [facility] ([facility]) ID Date Data Source [id number] 07/16/2020 01:34:00 PM EDT [facility] ([facility]) Name Value Range Interpretation Code Description Data Cecy rce(s) Supporting Document(s) Thyrotropin [Units/volume] in Serum or Plasma by Detec tion limit <= 0.05 mIU/L 0.04 uIU/mL 0.36-3.74 [facility] ([facility] ) ID Date Data Source [id number] 07/16/2020 01:34:00 PM EDT [facility] ([facility]) Name Value Range Interpretation Code Description Data Cecy rce(s) Supporting Document(s) Cholesterol [Mass/volume] in Serum or Plasma 97 mg/dL 131-200 [facility] ([facility]) Triglyceride [Mass/volume] in Serum or Plasma 47 mg/dL 30-150 [facility] ([facility]) Cholesterol in HDL [Mass/volume] in Serum or Plasma 70 mg/dL 35-60 [facility] ([facility]) Cholesterol in LDL [Mass/volume] in Serum or Plasma by calculation Laboratory test result 50-159 [facility] ([facility] ) ID Date Data Source [id number] 07/16/2020 01:34:00 PM EDT [facility] ([facility]) Name Value Range Interpretation Code Description Data Cecy rce(s) Supporting Document(s) Glucose [Mass/volume] in Serum or Plasma 121 mg/dL 74-99 [facility] ([facility]) 100-125 mg/dL PRE-DIABETES/FASTING >126 mg/dL DIABETES/FASTING Urea nitrogen [Mass/volume] in Serum or Plasma 8 mg/dL 7-18 [facility] ([facility]) Creatinine 1.0 mg/dL 0.6-1.3 [facility] ([facility]) Sodium [Moles/volume] in Serum or Plasma 139 meq/L 136-145 [facility] ([facility]) Potassium [Moles/volume] in Serum or Plasma 3.9 meq/L 3.5-5.1 [facility] ([facility]) Chloride [Moles/volume] in Serum or Plasma 104 meq/L 98-107 [facility] ([facility]) Carbon dioxide, total [Moles/volume] in Serum or Plasma 28 meq/L 21 -32 [facility] ([facility]) Calcium [Mass/volume] in Serum or Plasma 8.1 mg/dL 8.5-10.1 [facility] ([facility]) Aspartate aminotransferase [Enzymatic activity/volume] in Serum or Plasma 43 U/L 15-37 [facility] Total Bilirubin 2.3 mg/dL 0.2-1.0 [facility] ([facility]) Alkaline phosphatase isoenzyme [Units/volume] in Serum or Pl asma 253 mg/dL 46-116 [facility] ([facility]) Alanine aminotransferase [Enzymatic activity/volume] in Seru m or Plasma 34 U/L 12-78 [facility] ([facility]) Albumin [Mass/volume] in Serum or Plasma 2.8 g/dL 3.4-5.0 [facility] ([facility]) Proteinase 3 Ab [Units/volume] in Serum 6.6 g/dL 6.4-8.2 [facility] ([facility]) A/G Ratio 0.74 CALC 1.00-1.90 [facility]) Glomerular filtration rate/1.73 sq M pre dicted among non-blacks [Volume Rate/Area] in Serum or Plasma by Creatinine-based formula (MDRD) 53 mL/min [facility] ([facility]) Glomerular filtration rate/1.73 sq M pre dicted among blacks [Volume Rate/Area] in Serum or Plasma by Creatinine-based formula (MDRD) Laboratory test result [facility] <content>CHRONIC KIDNEY DISEASE STAGING PER NKF</content>
<content></content>
<content>STAGE I & II GFR >= 60 NORMAL TO MILDLY DECREASED</content>
<content>STAGE III GFR 30-59 MODERATELY DECREASED</content>
<content>STAGE IV GFR 15-29 SEVERELY DECREASED</content>
<content>STAGE V GFR <15 VERY LITTLE GFR LEFT</content>
<content>ESRD GFR <15 ON ASSISTANT TRACK AND FIELD COACH</content>
<content></content> ID Date Data Source [id number] 07/16/2020 01:34:00 PM EDT [facility] Name Value Range Interpretation Code Description Data Cecy rce(s) Supporting Document(s) Hemoglobin A1c/Hemoglobin.total in Blood 5.5 % [facility] ([facility]) Lab Result Notes: Pre-Diabetes 5.7 - 6.4 % Diabetes = or > 6.5% Glucose mean value [Mass/volume] in Blood Estimated fr om glycated hemoglobin 111 mg/dL 60-110 [facility] ([facility] ) ID Date Data Source [id number] 07/16/2020 01:34:00 PM EDT [facility] ([facility]) Name Value Range Interpretation Code Description Data Cecy rce(s) Supporting Document(s) Hemoglobin [Mass/volume] in Blood 9.1 g/dL 12.0-18.0 [facility] ([facility]) Leukocytes [#/volume] in Blood by Automated count 4.0 x10*3/UL 4.1-10 .9 [facility] ([facility]) Erythrocytes [#/volume] in Blood by Automated count 3.19 x10*6/UL 4.2 0-6.30 [facility] ([facility]) Hematocrit [Volume Fraction] of Blood by Automated count 27.5 % 3 7.0-51.0 [facility] ([facility]) MCH 28.4 pg 26.0-32.0 [facility] [place] [facility] MCV 86.1 fL 80.0-97.0 [facility] Erythrocyte distribution width [Ratio] by Automated count 15.0 % 11.6-13.7 [facility] ([facility]) MCHC 33.0 g/dL 31.0-38.0 [facility]) Platelets [#/volume] in Blood by Automated count 53 x10*3/UL 140-440 [facility] ([facility]) NOTE: RESULT VERIFIED. MPV 10.5 FL 7.8-11.0 [facility]) Lymph % 25.3 % 10.0-58.5 [facility]) Mid % 7.4 % 1.7-9.3 [facility]) Neut % 67.3 % 37.0-92.0 [facility]) Lymph # 1.0 x10*3/UL 0.6-4.1 [facility] ([facility]) Neut # 2.7 x10*3/UL 2.0-7.8 [facility] ([facility]) Mid # 0.3 x10*3/UL 0.1-0.6 [facility] ([facility]) ID Date Data Source [id number] 06/14/2020 04:51:44 PM EDT [facility] NT INFORMATIONPatient MRN Name Date of Age Gend*PT [id number] Carlos Marielena P 1935 85 years F [facility] Location Admission Date/Time Visit ID Attending ProviderCV06/14/20 0607 --- --- EPI ID CSN Admitting Provider [id number] Paul More MD([id number]) Attestation signed by Sheikh Charlie MD at 06/14/2020 4:51 PMI saw and evaluated the patient and reviewed RAG ROOM SUPERVISOR's note. I agree with thehistory, physical and [...] suggested her to follow with a localgast roenterologist/roughing mill operator who can stratify her perioperative risk onceabove studies are available with respect to any plans for cardiac surgery.Signature: Sheikh Charlie, MDDate: June 14, 2020Time: 4:44 PM --Gastroenterology Nurse Practitioner Consult NoteClorus Yesenia Gonzalez85 years, female, 1935MRN: [id number] Yen Consulting MD: Dr. GuerraInformant: PatientReason For [...] History:Past Medical History:Diagnosis Date Abdominal ultrasound 03/27/2019 ([facility]) Somewhat small liver w/ coarsened echogenicity pattern raising possiblityof hepatic cirrhosis. 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 Mild MAC with mild mitral stenosis, noregurgitation. Grade 1 LV diastolic dysfunction. Severe aortic stenosis. TraceAI. Trivial pericardial effusion. Echocardiogram 09/01/2017 ([facility] cadiology) LVEF 60-65%. LV diastolic dysfunction. Concentric mild LVH.Moderate aortic stenosis. Echocardiogram 01/2019 ([facility]) LVEF 59%. Indeterminate LV diastolic dysfunction. Severe aorticsclerosis and stenosis. P(eak/mean gradient 72.69 mmHg/50.17 mmHg) GI bleed GIB (gastrointestinal bleeding) H/O echocardiogram 11/13/2019 LV EF 65-70%, severe (mean gradient 57mmHg) History of transfusion few months ago Hyperlipidemia Hypertension Hypothyroidism Regadenoson SPECT 09/01/2017 ([facility] cardiology) No angina or arrhythmia [...] mouth 2 (two) times a day Umeclidinium [place] (INCRUSE ELLIPTA) 62.5 MCG/INH AEPB InhaleAllergies:Bacitracin and LatexFamily History:Family HistoryProblem Relation Age of Onset Cirrhosis Mother Cirrhosis Father Hyperlipidemia Son Myocardial Infarction ([place]) Son 52 Diabetes SonSocial History:Social HistorySocioeconomic History [...] Social Gatherings with Friends and Family: Attends [employer] Services: Active Member of Clubs or Organizations: [...] 14, 2020Time: 11:45 AMGastroenterology and Hepatology of [phone] Name Value Range Interpretation Code Description Data Cecy rce(s) Supporting Document(s) ID Date Data Source [id number] 06/14/2020 01:15:46 PM EDT [place], [place] [address]Patient Name: MARIELENA GONZALEZDOB: 1935Sex: FOrdering Provider: FILIBERTO KIMuthgil Prov: FILIBERTO NEWBYReferrcharli Provider: Procedure Performed: US CAROTID BILATERALExam Date: 06/14/2020 12:41MRN: [id number] Number: [id number] Class: OutpatientAccount #: [id number] for Exam: TAVR protocolTechnique: NOT READY TO [...] IDALMIS RAMOS On 06/14/2020 1:15 PMWorkstation ID: [id number] Name Value Range Interpretation Code Description Data Cecy rce(s) Supporting Document(s) ID Date Data Source [id number] 06/14/2020 10:07:33 AM EDT [facility] Name Value Range Interpretation Code Description Data Cecy rce(s) Supporting Document(s) &PDF [facility] CTEDHh2iMhYVPkFv16/DQGoqSEZqd2NtIYjsNPl4UGfcAIRnZ0JegLuwXFdGND4BG55xZ6rWWcDWUANq vci [file] [id number]VNNSM0EKUo== ID Date Data Source [id number] 06/14/2020 07:47:48 AM EDT [facility] Name Value Range Interpretation Code Description Data Cecy rce(s) Supporting Document(s) EKG [facility] GJYTWu5zLcYYVpRnj1CoLiUzHRNhIS3ybdq9M5B9qEEoC5HwoOXxz3qhA1GsI2MqJKWkUTXVSX1UvDYa jb2 [file] d+//Xxu2dR/gFJg2mJ704h6imoOt5M403hF444 J6kdog4Doi8E2/dxsi2U4/10WaP1qieZIpU7VxPm8Zna5/YL0NZjyp0i2UbiHUnItcEjCt8aqcoax9J4 s7aUMkLQrXWryL8CX+UVfIrCrWwSWGchZhaBV3JlxTqh4HseM7k7uCTjf6qHBPFHRJEOsvP8GS7XXUKH rUTUDMFUFCVuKgpTSZRsmcmWmWyZyZaZbJnJlplsWc [file] MDAwMDAgbiAKMDAwMDAwMDUyMyAwMDAwMCBuIAowMD HzAHCtTmQnJGDgDOSzHO0rRiViPOXoFLV6ZVTyPWDwSSRtfwFOCBWmCHZzFUk3FPXkNUYfSVEtHNajHM BmDVHyJXE8NCEiCQYbKZ9tSaRhYBCzTNMdMPIpENBqWFOvbtKGVHWsMMNtICE8RXNqEGIaEHMiMEplXJ RyNYXlHmf5OJSrXCGpPV2hYvCvRWQpOFJ8JWRkULMu KOBcgtTSSXBiQTR3DbJ3EGOjETIiGABeXHtnKPTsIWNiNrF3GIIdIUCzST7xFyNpTACoDZX8GbJiMHFf LKWnpbSNTTYmRCGyKWA2HsCaAJOsKJUuMPdwYFGvUHUaWZQiTLX2VXC1PEMwPwOxYSiaVFFOJDyZX7Bu gtCfRvPND3cvVk6qWjOoZMWUM1Gph2MnXHCiFJKVCs0+HyE8LYP4uFJqNpw0DAI8OOmdZHKYCn== ID Date Data Source [id number] 06/09/2020 11:55:00 AM EDT [facility] ([facility]) Name Value Range Interpretation Code Description Data Cecy rce(s) Supporting Document(s) Coronavirus 2019 Nasopharygeal Laboratory test result [facility] ASSAY INFORMATION: Real Time RT-PCR NOTE: The COVID-19 assay has been cleared by the U.S. Food and Drug Administration under the Emergency Use Authorization (EUA). [employer] are designated as high complexity laboratories by the Clinical Laboratory Improvement Amendments of 1988(CLIA) and are qualified to perform this test. Not Detected ID Date Data Source [id number] 06/09/2020 11:55:00 AM EDT [facility] Name Value Range Interpretation Code Description Data Cecy rce(s) Supporting Document(s) SARS-CoV-2 (COVID-19) RNA [Presence] in Respiratory specimen by MITALI with probe detection Not Detected [facility] This lab was ordered by [facility] and reported by [employer] ID Date Data Source [id number] 12/01/2019 03:31:00 PM EDT [facility] ([facility]) Name Value Range Interpretation Code Description Data Cecy rce(s) Supporting Document(s) Iron (Fe) 170 ug/dL 50-170 [facility]) Percent Saturation 60.3 % 13.2-45.0 [facility] ([facility]) Total Iron Binding Capacity 282 ug/dL 250-450 [facility] ([facility]) ID Date Data Source [id number] 12/01/2019 03:31:00 PM EDT [facility] ([facility]) Name Value Range Interpretation Code Description Data Cecy rce(s) Supporting Document(s) Urea nitrogen [Mass/volume] in Serum or Plasma 12 mg/dL 7-18 [facility] ([facility]) Glucose [Mass/volume] in Serum or Plasma 122 mg/dL 74-99 [facility] ([facility]) 100-125 mg/dL PRE-DIABETES/FASTING >126 mg/dL DIABETES/FASTING Potassium [Moles/volume] in Serum or Plasma 4.0 meq/L 3.5-5.1 [facility] ([facility]) Creatinine 0.9 mg/dL 0.6-1.3 [facility] Sodium [Moles/volume] in Serum or Plasma 141 meq/L 136-145 [facility] ([facility]) Carbon dioxide, total [Moles/volume] in Serum or Plasma 25 meq/L 21 -32 [facility] ([facility]) Chloride [Moles/volume] in Serum or Plasma 108 meq/L 98-107 [facility] ([facility]) Calcium [Mass/volume] in Serum or Plasma 8.5 mg/dL 8.5-10.1 [facility] ([facility]) NOTE: ALK PHOS,T.BILI,AST,ALBUMIN VERIFIED Total Bilirubin 2.3 mg/dL 0.2-1.0 [facility] ([facility]) Alkaline phosphatase isoenzyme [Units/volume] in Serum or Pl asma 260 mg/dL 46-116 [facility] ([facility]) Aspartate aminotransferase [Enzymatic activity/volume] in Serum or Plasma 56 U/L 15-37 [facility] ([facility] ) Albumin [Mass/volume] in Serum or Plasma 3.0 g/dL 3.4-5.0 [facility] ([facility]) Alanine aminotransferase [Enzymatic activity/volume] in Seru m or Plasma 40 U/L 12-78 [facility] ([facility]) Proteinase 3 Ab [Units/volume] in Serum 7.4 g/dL 6.4-8.2 [facility] ([facility]) Glomerular filtration rate/1.73 sq M pre dicted among non-blacks [Volume Rate/Area] in Serum or Plasma by Creatinine-based formula (MDRD) 60 mL/min [facility] ([facility]) A/G Ratio 0.68 CALC 1.00-1.90 [facility]) Glomerular filtration rate/1.73 sq M pre dicted among blacks [Volume Rate/Area] in Serum or Plasma by Creatinine-based formula (MDRD) Laboratory test result [facility] ([facility]) <content>CHRONIC KIDNEY DISEASE STAGING PER NKF</content>
<content></content>
<content>STAGE I & II GFR >= 60 NORMAL TO MILDLY DECREASED</content>
<content>STAGE III GFR 30-59 MODERATELY DECREASED</content>
<content>STAGE IV GFR 15-29 SEVERELY DECREASED</content>
<content>STAGE V GFR <15 VERY LITTLE GFR LEFT</content>
<content>ESRD GFR <15 ON ASSISTANT TRACK AND FIELD COACH</content>
<content></content> ID Date Data Source [id number] 12/01/2019 03:31:00 PM EDT [facility] Name Value Range Interpretation Code Description Data Cecy rce(s) Supporting Document(s) Erythrocytes [#/volume] in Blood by Automated count 3.89 x10*6/UL 4.2 0-6.30 [facility] Leukocytes [#/volume] in Blood by Automated count 4.1 x10*3/UL 4.1-10 .9 [facility] Hemoglobin [Mass/volume] in Blood 12.5 g/dL 12.0-18.0 [facility] MCV 95.4 fL 80.0-97.0 [facility] ([facility]) Hematocrit [Volume Fraction] of Blood by Automated count 37.1 % 3 7.0-51.0 [facility] ([facility]) MCH 32.1 pg 26.0-32.0 [facility] ([facility]) MCHC 33.6 g/dL 31.0-38.0 [facility] ([facility]) Erythrocyte distribution width [Ratio] by Automated count 14.1 % 11.6-13.7 [facility] MPV 10.5 FL 7.8-11.0 [facility] ([facility]) Platelets [#/volume] in Blood by Automated count 58 x10*3/UL 140-440 [facility] ([facility]) NOTE: RESULT VERIFIED. Lymph # 0.9 x10*3/UL 0.6-4.1 [facility] ([facility]) Lymph % 23.2 % 10.0-58.5 [facility]) Mid % 6.2 % 1.7-9.3 [facility]) Neut % 70.6 % 37.0-92.0 [facility]) Neut # 2.9 x10*3/UL 2.0-7.8 [facility] ([facility]) Mid # 0.3 x10*3/UL 0.1-0.6 [facility] ([facility]) Procedure Social History Code Duration Value Status Description Data Source(s ) Alcohol intake 06/17/2020 12:00:00 AM EDT Ex-drinker (finding) comp leted Ex- drinker (finding) [facility] Alcohol intake 06/14/2020 12:00:00 AM EDT Ex-drinker (finding) comp leted Ex- drinker (finding) [facility] Alcohol intake 06/04/2020 12:00:00 AM EDT Not Currently completed [facility] Cigarette pack-years 06/04/2020 12:00:00 AM EDT UNK completed [facility] Cigarettes smoked current (pack per day) - Reported 06/05/19 12:00:00 AM EDT UNK completed [facility] Smoking 06/04/2020 12:00:00 AM EDT Former smoker completed Former smoker [facility] Alcohol intake 11/13/2019 12:00:00 AM EDT Not Currently completed [facility] Cigarette pack-years 11/13/2019 12:00:00 AM EDT UNK completed [facility] Cigarettes smoked current (pack per day) - Reported 11/13/19 12:00:00 AM EDT UNK completed [facility] Smoking 11/13/2019 12:00:00 AM EDT Former smoker completed Former smoker [facility] Vital Signs ID Date Data Source [id number] Name Value Range Interpretation Code Description Data Source(s) Systolic blood pressure 112 mm[Hg] 112 mm[Hg] M [facility] ([facility]) Diastolic blood pressure 66 mm[Hg] 66 mm[Hg] [facility] ([facility]) Heart rate 82 /min 82 /min [facility] ([facility]) Body height 62.50 [in_i] 62.50 [in_i] [facility] ([facility]) 5'2.50" Body weight 220.00 [lb_av] 220.00 [lb_av] [facility] ([facility]) Oxygen saturation in Arterial blood by Pulse oximetry 97 % 97 % [facility] 3 liters Body mass index (BMI) [Ratio] 39.6 kg/m2 39.6 k g/m2 [facility] ([facility]) Body weight 99.792 kg 99.792 kg [facility] ([facility]) Body weight 220.00 [lb_av] 220.00 [lb_av] [facility] T ([facility]) Systolic blood pressure 133 mm[Hg] 133 [facility]Hg] [facility] Body temperature 97.2 [degF] 97.2 [degF] [facility] ([facility]) Body height 62 [in_i] 62 [in_i] [facility] 5'2" Diastolic blood pressure 70 mm[Hg] 70 mm[Hg] [facility] ([facility]) Heart rate 72 /min 72 /min [facility]) Body mass index (BMI) [Ratio] 40.2 kg/m2 40.2 k g/m2 [facility] ([facility]) Heart rate 86 /min 86 /min [facility] ([facility]) Body weight 226.00 [lb_av] 226.00 [lb_av] [facility] T ([facility]) Oxygen saturation in Arterial blood by Pulse oximetry 94 % 94 % [facility] ([facility]) 2.5 liters Diastolic blood pressure 80 mm[Hg] 80 mm[Hg] [facility] ([facility]) Systolic blood pressure 136 mm[Hg] 136 mm[Hg] [facility] Body mass index (BMI) [Ratio] 41.4 kg/m2 41.4 k g/m2 [facility] ([facility]) Diastolic blood pressure 62 mm[Hg] 62 mm[Hg] [facility] ([facility]) Body height 62.50 [in_i] 62.50 [in_i] [facility] ([facility]) 5'2.50" Body weight 230.00 [lb_av] 230.00 [lb_av] [facility] ([facility]) Systolic blood pressure 138 mm[Hg] 138 mm[Hg] M [facility] ([facility]) Heart rate 73 /min 73 /min [facility]) Oxygen saturation in Arterial blood by Pulse oximetry 94 % 94 % [facility] ([facility]) on 3L Body weight 227.00 [lb_av] 227.00 [lb_av] [facility] ([facility]) Body mass index (BMI) [Ratio] 40.9 kg/m2 40.9 k g/m2 [facility] ([facility]) Heart rate 78 /min 78 /min [facility] ([facility]) Systolic blood pressure 120 mm[Hg] 120 mm[Hg] [facility] ([facility]) Diastolic blood pressure 66 mm[Hg] 66 mm[Hg] [facility] ([facility]) Body height 62.50 [in_i] 62.50 [in_i] [facility] ([facility]) 5'2.50" Body mass index (BMI) [Ratio] 41.99 kg/m2 41.99 kg/m2 [facility] Systolic blood pressure 132 mm[Hg] 132 mm[Hg] [facility] Diastolic blood pressure 54 mm[Hg] 54 mm[Hg] [facility] Heart rate 84 /min 84 /min [facility] Body height 157.5 cm 157.5 cm [facility] Body weight 104.146 kg 104.146 kg [facility] Oxygen saturation in Arterial blood by Pulse oximetry 96 % 96 % [facility] Heart rate 70 /min 70 /min [facility] Body temperature 36.5 Olimpia 36.5 Olimpia [facility] Respiratory rate 16 /min 16 /min [facility] Oxygen saturation in Arterial blood by Pulse oximetry 98 % 98 % [facility] Systolic blood pressure 110 mm[Hg] 110 mm[Hg] [facility] Diastolic blood pressure 53 mm[Hg] 53 mm[Hg] [facility] Body height 157.5 cm 157.5 cm [facility] Body weight 104 kg 104 kg [facility] Body mass index (BMI) [Ratio] 41.94 kg/m2 41.94 kg/m2 [facility] Diastolic blood pressure 46 mm[Hg] 46 mm[Hg] [facility] Systolic blood pressure 108 mm[Hg] 108 mm[Hg] [facility] Heart rate 87 /min 87 /min [facility] Body height 157.5 cm 157.5 cm [facility] Body weight 103.42 kg 103.42 kg [facility] Body mass index (BMI) [Ratio] 41.70 kg/m2 41.70 kg/m2 [facility] Oxygen saturation in Arterial blood by Pulse oximetry 97 % 97 % [facility] Body weight 104.327 kg 104.327 kg [facility] Body mass index (BMI) [Ratio] 42.07 kg/m2 42.07 kg/m2 [facility] Oxygen saturation in Arterial blood by Pulse oximetry 96 % 96 % [facility] Systolic blood pressure 114 mm[Hg] 114 mm[Hg] [facility] Diastolic blood pressure 60 mm[Hg] 60 mm[Hg] [facility] Heart rate 68 /min 68 /min [facility] Body height 157.5 cm 157.5 cm [facility] Body height 62.50 [in_i] 62.50 [in_i] RAQUEL ([facility]) 5'2.50" Body weight 224.00 [lb_av] 224.00 [lb_av] CM Moore ([facility]) Body mass index (BMI) [Ratio] 40.3 kg/m2 40.3 k g/m2 RAQUEL ([facility]) Systolic blood pressure 122 mm[Hg] 122 mm[Hg] [facility] Diastolic blood pressure 68 mm[Hg] 68 mm[Hg] RAQUEL ([facility]) Heart rate 78 /min 78 /min [facility] Patient Treatment Plan of Care Planned Activity Planned Date Details Description Data Source (s) normal saline flush 0.9 % injection 3 mL 06/14/2020 02:00:00 PM EDT [facility] 1 ML heparin sodium, porcine 1000 UNT/ML Injection 06/14/2020 09 :23:11 AM EDT [facility] normal saline flush 0.9 % injection 3 mL 06/14/2020 07:00:00 AM EDT [facility] normal saline flush 0.9 % injection 3 mL 06/14/2020 07:00:00 AM EDT [facility] atorvastatin 10 MG Oral Tablet 04/23/2020 12:00:00 AM [facility] Lisinopril 2.5 MG Oral Tablet 04/23/2020 12:00:00 AM [facility] Metoprolol Tartrate 25 MG Oral Tablet 04/23/2020 12:00:00 AM [facility] Aspirin 81 MG Delayed Release Oral Tablet 02/26/2019 12:00:00 AM [facility] Metoprolol Tartrate 25 MG Oral Tablet 02/25/2019 12:00:00 AM [facility] Metoprolol Tartrate 25 MG Oral Tablet 02/25/2019 12:00:00 AM [facility] OneTouch Verio In Vitro Strip 02/20/2019 12:00:00 AM [facility]
--- NOTE | 2020-12-18 19:39 | HPEPDOC ---
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 Was found by her daughter this morning unresponsive in her armchair. Patient is obtunded at the time of my examination, and opens her eyes to her name, otherwise unable to participate in exam. On arrival to Er, patient was normotensive, saturating well on RA. She was found to be anemic to Hgb 5.5 with a fecal occult positive stool. Family denied hematemesis and melana. Patient had a brown stool in ER. Further, patient had an elevated Cr. of 1.41 and hyperkalemia of 5.5. Urine was cloudy and UA showed evidence to UTI. Her ammonia was 44. TSH 0.089. Patient will be admitted to hospitalist service for treamtent of metabolic encephalopathy possible secondary to UTI vs hepatic encephalopathy. PAST MEDICAL HISTORY: Chronic UBIG / GAVE Chronic blood loss anemia Asthma with COPD MACHELLE (uses 3L of O2 at night) Pulmonary HTN (group 3?) Essential HTN / Chronic HFpEF (grade 1) Aortic valve sclerosis with mild stenosis DLP NIDDM Severe bilateral knee OA (s/p Left knee replacement & Right total knee arthroplasty) Liver cirrhosis Hypothyroidism Class 2 obesity Bilateral cataract surgery Hysterectomy Appendectomy Lap Cholecystectomy Bladder reconstruction surgery Right foot surgery Resection of cecal polyp Bilateral Blepharoplasty FAMILY HISTORY: Obtained from chart review as patient is altered: Father gastric cancer / Mother- liver cirrhosis / Son CAD, HTN / Brother HTN/ Sister breast cancer SOCIAL HISTORY: Obtain from chart review, as patient is altered: She is a former cigarette smoker with a 30 pack yr hx & has a history of alcohol abuse. 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 ALLERGIES: Please see below. REVIEW OF SYSTEMS: Unable to complete as patient is altered. HOME MEDICATIONS: Please see below. PHYSICAL EXAMINATION: VITAL SIGNS: please see below General: opens eyes to her name called. HEENT: PERRLA, EOMI, sclerae clear Neck: supple, normal ROM, no JVD Respiratory: lungs CTAB, no wheeze, no rales, no crackles CVS: RRR, normal S1, S2, no murmurs Abdo: soft, no masses, no hepatosplenomegaly, BS+, no rebound tenderness Extremities: no edema, pulses 2+ MSK: no joint deformities, normal ROM Neuro: no focal neuro deficits, moving all 4 extremities, CN2-12 intact. Strength 5/5 in all 4 extremities. No nystagmus. Psych: calm, cooperative, AAO x 3 LABORATORY DATA: See below. IMAGING: CT head wo contrast (12/18/20): No significant change from the prior exam. No evidence of acute intracranial pathology. There is evidence of deep white matter ischemic change and chronic basal ganglion calcifications status quo. CXR (12/18/20): Chronic interstitial changes in the lung bases. Mild elevation of the left hemidiaphragm with very mild atelectasis or infiltrate in the left lung base .This appears similar to the prior studies of 11/07/2020 and 09/03/2020. MICROBIOLOGY: Please see below. 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 Follows with Dr. Rico. Admitted with AMS, possibly 2/2 UTI vs hepatic encephalopathy . . PLAN: #Metabolic encephalopathy possibly 2/2 UTI or hepatic encephalopathy - WBC 3.0. LA 1.2. Afebrile. - UA + for UTI. - given dose of empiric ceftriaxone. Continue - Check blood cx, urine cx # Acute on chronic blood loss anemia / GAVE -She has a hx of GAVE & iron deficiency - Hgb 5.5 - 2 units pRBC ordered - follows with Dr. Rico. - s/p EGD 12/11/20: gastric antral vascular ectasia wo bleeding. Tread with argon plasma coagulation. Otherwise normal exam. - d/w Dr. Warner, recommends to transfuse and monitor H/H. No indication for urgent EGD. If stable, to f/u with Dr. Rico in clinic. # Thrombocytopenia - PLT 40 - ordered 1 units apheresis PLTS #ALTAF with hyperkalemia - baseline Cr ~1.0 - likely pre-renal - check renal US - c/w IV NS 100 cc/hr. - give one dose of kayaxalate - hold potassium supplement. # Liver cirrhosis - check coags - ammonia 44. T bili 2.2 - check CT abdo pelvis - check liver US - c/w rifaximin - give 30 ml lactulose, was not seen on home med list # Asthma with COPD - arrived on RA, now on 4L - resume inhalers. # Chronic HFpEF (grade 1) / HTN - hold lilsinopril in setting of ALTAF - resume metoprolol # MACHELLE (uses 3L of O2 at night) - nocturnal O2 # NIDDM - ISS and FSBS AC and HS - hypoglycemic precautions # Hypothyroidism - Levothyroxine # Class 2 obesity Complicates care DVT ppx: SCDs. TEDs. Dispo: home after at least 2 midnights stay Vital Signs Vital Signs Date Time Temp Pulse Resp B/P (MAP) Pulse Ox O2 Delivery O2 Flow Rate FiO2 12/18/20 18:45 87 154/70 (98) 99 12/18/20 18:43 97.9 16 Nasal Cannula 4.0 Laboratory Data Labs 24H Laboratory Tests 2 12/18/20 11:33: Immature Granulocyte % (Auto) 0.3, Neutrophils (%) (Auto) 49.2, Lymphocytes (%) (Auto) 32.9, Monocytes (%) (Auto) 13.2H, Eosinophils (%) (Auto) 4.4H, Basophils (%) (Auto) 0.0, Neutrophils # (Auto) 1.5, Lymphocytes # (Auto) 1.0L, Monocytes # (Auto) 0.4, Eosinophils # (Auto) 0.1, Basophils # (Auto) 0.0, Nucleated Red Blood Cells % (auto) 0.0, Immature Platelet Fraction 8.6, Urine Color STEVEN, Urine Appearance TURBIDH, Urine pH 5.0, Urine Specific [place] 1.015, Urine Protein 2+H, Urine Glucose (UA) NEGATIVE, Urine Ketones NEGATIVE, Urine Blood 2+H, Urine Nitrite NEGATIVE, Urine Bilirubin NEGATIVE, Urine Urobilinogen 2.0H, Urine Leukocyte Esterase 2+H, Urine WBC (Auto) TNTCH, Urine RBC (Auto) 23H, Urine Hyaline Casts (Auto) 19, Urine Bacteria (Auto) 3+H, Urine Squamous Epithelial Cells 0, Urine Mucus (Auto) SMALL, Urine Sperm (Auto) , Blood Gas Bicarbonate Standard 15.1, Venous Blood pH 7.439H, Venous Blood Partial Pressure CO2 17.4L, Venous Blood Partial Pressure O2 196.0H, Venous Blood Total Carbon Dioxide 12.1L, Venous Blood HCO3 11.5L, Venous Blood Oxygen Saturation 98.7H, Venous Blood Base Excess -11.5L, Lactic Acid Level 1.2, Ammonia 44H, Urine Opiates Screen NEGATIVE, Urine Methadone Screen NEGATIVE, Urine Barbiturates Screen NEGATIVE, Urine Phencyclidine Screen NEGATIVE, Urine Amphetamines Screen NEGATIVE, Urine Benzodiazepines Screen NEGATIVE, Urine Cocaine Metabolite Screen NEGATIVE, Urine Cannabinoids Screen NEGATIVE, Ethyl Alcohol Level < 0.003 12/18/20 11:40: POC Glucose (Misc Panel) 46L, POC Sodium (Misc Panel) 150H, POC Potassium (Misc Panel) 3.0L, POC Chloride (Misc Panel) 124H, POC Total CO2 (Misc Panel) 11.0L, POC Blood Urea Nitrogen (Misc Panel 13, POC Ionized Calcium (Misc Panel) 2.5*L, POC Creatinine (Misc Panel) 0.6, POC Hematocrit (Misc Panel) < 15.0L 12/18/20 11:50: Bedside Glucose (Misc Panel) 87 12/18/20 12:56: Coronavirus (COVID-19)(PCR) NEGATIVE, Influenza Type A (RT-PCR) NEGATIVE, Influenza Type B (RT-PCR) NEGATIVE, Respiratory Syncytial Virus (PCR) NEGATIVE 12/18/20 12:57: Bedside Glucose (Misc Panel) 86 12/18/20 13:14: Anion Gap 2L, Glomerular Filtration Rate 31.2L, Osmolality 301, Calcium Level 9.0, Total Bilirubin 2.2H, Direct Bilirubin 0.5H, Aspartate Amino Transf (AST/SGOT) 94H, Alanine Aminotransferase (ALT/SGPT) 51, Alkaline Phosphatase 226H, Total Creatine Kinase 137, Creatine Kinase MB 1.1, Creatine Kinase MB Relative Index 0.80, Troponin I < 0.02, Total Protein 7.3, Albumin 2.6L, Albumin/Globulin Ratio 0.6L, Thyroid Stimulating Hormone (TSH) 0.089L, Salicylates Level < 1.7L, Acetaminophen Level < 2.0L, Ethyl Alcohol Level < 0.003 12/18/20 17:46: Anion Gap 3L, Glomerular Filtration Rate 37.3, Calcium Level 8.7L CBC/BMP Laboratory Tests 12/18/20 11:33 12/18/20 13:14 12/18/20 17:46 Microbiology Microbiology 12/18/20 Urine Culture, Received Pending 12/18/20 Blood Culture, Received Pending 12/18/20 Blood Culture, Received Pending Home Medications Scheduled Amitriptyline HCl (Amitriptyline HCl) 25 Mg Tablet, 25 MG PO QHS Amoxicillin/Potassium Clav (Amox-Clav 875-125 mg Tablet) 1 Each Tablet, 875 MG PO BID Atorvastatin Calcium (Atorvastatin Calcium) 10 Mg Tablet, 10 MG PO QHS Ferrous Sulfate (Ferrous Sulfate) 325 Mg Tablet, 325 MG PO DAILY Levothyroxine Sodium (Synthroid) 100 Mcg Tablet, 100 MCG PO DAILY Lisinopril (Lisinopril) 2.5 Mg Tablet, 2.5 MG PO DAILY Magnesium Oxide (Magnesium) 500 Mg Capsule, 500 MG PO BID Metoprolol Tartrate (Metoprolol Tartrate) 25 Mg Tablet, 12.5 MG PO BID Mirabegron (Myrbetriq) 25 Mg Tab.er.24h, 25 MG PO QHS Pantoprazole Sodium (Pantoprazole Sodium) 40 Mg Tablet.dr, 40 MG PO BID Rifaximin (Xifaxan) 550 Mg Tablet, 550 MG PO BID Sucralfate (Sucralfate) 1 Gm Tablet, 1 GM PO BID Umeclidinium [facility] (Incruse Ellipta) 62.5 Mcg Blst.w.dev, 1 PUFF INH DAILY Scheduled PRN Albuterol Sulf (Albuterol Sulfate) 2.5 Mg/3 Ml Vial.neb, 2.5 MG INH QID PRN for SHORTNESS OF BREATH Allergies Coded Allergies: bacitracin (Verified Allergy, Severe, itching, swelling, 06/09/18) latex (Verified Allergy, Severe, itching, swelling, 06/09/18) A-FIB/CHADSVASC A-FIB History Current/History of A-Fib/PAF?: No LOREE FERGUSON MD Dec 18, 2020 19:39
[2020-12-18] MEDS ORDERED: SOD POLYSTYRENE SULFONATE SUSP 15 GM/60 ML UD PO ONE (19:45)
[2020-12-18 20:35] LABS: FREE T4 1.79 NG/DL (0.76-1.46)
[2020-12-18] MEDS ORDERED: METOPROLOL 5 MG/5 ML VIAL IV STA (21:21)
--- NOTE | 2020-12-18 21:39 | REPVR ---
PROCEDURE INFORMATION: Exam: CT Abdomen And Pelvis Without Contrast Exam date and time: 12/18/2020 8:48 PM Age: 85 years old Clinical indication: Abnormal findings; Abnormal lab test; Other: Elevated bili; Additional info: AMS, elevated bili TECHNIQUE: Imaging protocol: Computed tomography of the abdomen and pelvis without contrast. Radiation optimization: All CT scans at this facility use at least one of these dose optimization techniques: automated exposure control; mA and/or kV adjustment per patient size (includes targeted exams where dose is matched to clinical indication); or iterative reconstruction. COMPARISON: CT ABD/PEL W/IV CONTRAST ONLY 02/15/2019 4:21 PM FINDINGS: Lungs: Atelectasis at the lung bases. Liver: Liver appears cirrhotic with nodular contours. Gallbladder and bile ducts: Gallbladder is surgically absent. No biliary ductal dilatation. Pancreas: Noncontrast pancreas shows no obvious mass or adjacent fluid. Spleen: Spleen is enlarged. No obvious focal lesion Adrenal glands: Adrenal glands are unremarkable. Kidneys and ureters: Splenic and renal varices are present. Kidneys show no hydronephrosis. Punctate vascular or nonobstructing left renal midpole stone. Stomach and bowel: Limited study secondary to patient body habitus artifact, absence of IV and enteric contrast, and motion. No evidence of small bowel obstruction. Diverticular changes are present within the colon without inflammation. Appendix: Appendix is not seen. No RLQ inflammation to suggest appendicitis. Intraperitoneal space: No pneumoperitoneum. Vasculature: Atherosclerotic change present in the aorta, without aneurysm. Lymph nodes: No enlarged lymph nodes. Urinary bladder: Urinary bladder appears normal. Reproductive: Uterus is surgically absent. Bones/joints: Bony structures are normal except for lumbar spine degenerative disc changes. Soft tissues: Unremarkable. IMPRESSION: 1. No evidence of biliary obstruction. 2. Colonic diverticulosis without active inflammation. 3. Hepatic cirrhosis, splenomegaly and portal hypertension changes without ascites. 4. Nonobstructive left renal calculus Electronically signed by: Chato Contreras On 12/18/2020 21:38:11 PM
[2020-12-18] MEDS ORDERED: SOD POLYSTYRENE SULFONATE SUSP 30 GM/120 ML ENEMA PR ONE (21:50)
[2020-12-18] MEDS ORDERED: CALCIUM GLUCONATE 1,000 MG in D5W MINI-BAG PLUS 100 ML IV ONE (22:00)
[2020-12-18] MEDS ORDERED: LACTULOSE 20 GM/30 ML SYRUP UD PR ONE (22:00)
[2020-12-18] MEDS: ATORVASTATIN 10 MG TAB PO SCH (22:10)
[2020-12-18] MEDS: METOPROLOL TART 12.5 MG PER 1/2 TAB PO SCH (22:10)
[2020-12-18] MEDS: SUCRALFATE 1 GM TAB PO SCH (22:10)
[2020-12-18] MEDS: PANTOPRAZOLE 40MG TAB (PROTONIX) PO SCH (22:11)
[2020-12-18] MEDS: rifAXIMin 550 MG TAB (XIFAXAN) PO SCH (22:11)
[2020-12-19] VITALS (12 sets, daily range): BP systolic 114–170; BP diastolic 56–76
[2020-12-19] MEDS: D5W/0.9% SODIUM CHLORIDE 1,000 ML IV SCH ×2 (01:38→10:34)
[2020-12-19 02:49] LABS: EOS # 0.1 10^3/uL (0.0-0.5); EOS % 0.9 % (0.0-3.0); HEMATOCRIT 35.9 % (36.0-47.0); LYMPH # 0.2 10^3/uL (1.5-5.0); LYMPH % 3.7 % (24.0-44.0); MEAN CORPUSCULAR HEMOGLOBIN 31.1 pg (27.0-33.0); MEAN CORPUSCULAR HGB CONC 31.8 g/dl (32.0-36.5); MEAN CORPUSCULAR VOLUME 97.8 fl (80.0-96.0); MONO # 0.1 10^3/uL (0.0-0.8); MONO % 2.3 % (2.0-8.0); NEUTROPHILS # 5.2 10^3/uL (1.5-8.5); NEUTROPHILS % 92.6 % (36.0-66.0); RED BLOOD COUNT 3.67 10^6/uL (4.00-5.40); WHITE BLOOD COUNT 5.6 10^3/uL (4.0-10.0)
[2020-12-19 02:58] LABS: HEMOGLOBIN 11.4 g/dl (12.0-15.5); INR 1.33; PLATELET COUNT, AUTOMATED 43 10^3/uL (150-450); PROTHROMBIN TIME 16.9 SECONDS (12.7-14.5)
[2020-12-19 03:11] LABS: ALBUMIN 2.2 GM/DL (3.2-5.2); BILIRUBIN,TOTAL 2.5 MG/DL (0.2-1.0); CALCIUM LEVEL 8.8 MG/DL (8.8-10.2); CREATININE FOR GFR 1.42 MG/DL (0.55-1.30); GLOMERULAR FILTRATION RATE 37.6 (>32); MAGNESIUM LEVEL 1.5 MG/DL (1.8-2.4); POTASSIUM SERUM 4.9 MEQ/L (3.5-5.1); TOTAL PROTEIN 6.6 GM/DL (6.4-8.2)
[2020-12-19] MEDS ORDERED: NS 500 ML IV ONE (04:30)
[2020-12-19] MEDS ORDERED: MAG SULF 1GM/100ML (MAG RUN) 1 GM in IV 1 EA IV ONE (04:35)
[2020-12-19] MEDS: LEVOTHYROXINE 100MCG TABLET (0.1MG) PO SCH (06:00)
[2020-12-19] MEDS ORDERED: METOPROLOL 5 MG/5 ML VIAL IV STA (07:01)
[2020-12-19] MEDS: LISINOPRIL *2.5 MG* TAB PO SCH (08:27)
[2020-12-19] MEDS: METOPROLOL TART 12.5 MG PER 1/2 TAB PO SCH (08:27)
[2020-12-19] MEDS: SUCRALFATE 1 GM TAB PO SCH ×2 (08:27→21:00)
[2020-12-19] MEDS: FERROUS SULFATE 325MG TAB PO SCH (08:27)
[2020-12-19] MEDS: TIOTROPIUM INHALER/CAPSULE (SPIRIVA) INH SCH (08:38)
[2020-12-19] MEDS: PANTOPRAZOLE 40MG TAB (PROTONIX) PO SCH ×2 (09:00→21:00)
[2020-12-19] MEDS: rifAXIMin 550 MG TAB (XIFAXAN) PO SCH ×2 (09:00→21:00)
[2020-12-19] MEDS ORDERED: cefTRIAXone SOD 1 GM in D5W MINI-BAG PLUS 50 ML IV SCH (09:00)
[2020-12-19] MEDS ORDERED: POTASSIUM CHLORIDE 10MEQ SR TABLET PO SCH (09:00)
[2020-12-19] MEDS: MAG SULF 1GM/100ML (MAG RUN) 1 GM in IV 1 EA IV SCH ×2 (09:13→10:15)
--- NOTE | 2020-12-19 11:23 | REP ---
INDICATION: hyperbilirubinemia. COMPARISON: 07/31/2020, 11/13/2019. CT 12/18/2020. TECHNIQUE: Real-time sonographic evaluation of ABDOMEN performed. FINDINGS: There has been a prior cholecystectomy.. There is no gross intrahepatic or extrahepatic biliary dilatation, however, the common bile duct could not be visualized. Liver demonstrates heterogeneous coarsened echotexture, with suspected cirrhosis. No gross mass is seen. The visualized pancreas is grossly unremarkable, not well seen due to overlying bowel gas. Spleen is mildly enlarged based on a splenic index of 968, measuring 12.9 x 6.0 x 12.5 cm. There is no evidence of hydronephrosis. There is a 7 mm calcification in the mid left kidney which may represent a calculus or vascular calcification. The right kidney measures 10.1 x 5.2 x 5.4 cm. Left renal dimensions are 10.1 x 4.5 x 5.4 cm. The abdominal aorta is normal in caliber with no aneurysm. No free fluid is seen. IMPRESSION: Status post cholecystectomy. Common bile duct could not be visualized but there is no gross biliary dilatation. The liver appears cirrhotic and the spleen appears mildly enlarged. There is a 7 mm calcification in the mid left kidney which may represent a calculus or vascular calcification. No hydronephrosis. <Electronically signed by Jv Ford > 12/19/20 [id number]
--- NOTE | 2020-12-19 20:05 | ECGEPIP ---
[facility] - ED Test Date: 2020-12-18 Pat Name: EDWARD GALVAN Department: Room: - Gender: Female Sample Coordinator: SANDRA : 1935 Requested By: Karen Guzmán Order Number: [id number] Reading MD: Karen Guzmán Measurements Intervals [place] Rate: 81 P: 65 FL: 188 QRS: -29 QRSD: 84 T: 72 QT: 388 QTc: 450 Interpretive Statements Normal sinus rhythm Septal infarct , age undetermined prominent t waves, ?hyperkalemia Electronically Signed on 12-19-2020 20:04:47 EDT by Karen Guzmán
[2020-12-19] MEDS: ATORVASTATIN 10 MG TAB PO SCH (21:00)
--- NOTE | 2020-12-19 21:07 | IPNPDOC ---
Date Seen The patient was seen on 12/19/20. Progress Note SUBJECTIVE: seen and examined. mentation improved slightly, but still not answering questions appropriately. Opens eyes and responds to verbal cues. OBJECTIVE PHYSICAL EXAMINATION: VITAL SIGNS: please see below General: opens eyes to her name called. HEENT: PERRLA, EOMI, sclerae clear Neck: supple, normal ROM, no JVD Respiratory: lungs CTAB, no wheeze, no rales, no crackles CVS: RRR, normal S1, S2, no murmurs Abdo: soft, no masses, no hepatosplenomegaly, BS+, no rebound tenderness Extremities: no edema, pulses 2+ MSK: no joint deformities, normal ROM Neuro: no focal neuro deficits, moving all 4 extremities, CN2-12 intact. Strength 5/5 in all 4 extremities. No nystagmus. Psych: calm, cooperative, AAO x 3 LABORATORY DATA, IMAGING STUDIES, MICROBIOLOGY: Please see below. Echocardiogram: . DVT prophylaxis ordered?: CT head wo contrast (12/18/20): No significant change from the prior exam. No evidence of acute intracranial pathology. There is evidence of deep white matter ischemic change and chronic basal ganglion calcifications status quo. CXR (12/18/20): Chronic interstitial changes in the lung bases. Mild elevation of the left hemidiaphragm with very mild atelectasis or infiltrate in the left lung base.This appears similar to the prior studies of 11/07/2020 and 09/03/2020. MICROBIOLOGY: Please see below. 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 Follows with Dr. Rico. Admitted with AMS, possibly 2/2 UTI vs hepatic encephalopathy . . PLAN: #Metabolic encephalopathy possible 2/2 SIRS/UTI or hepatic encephalopathy - WBC 3.0. LA 1.2. Afebrile. - UA + for UTI. - given dose of empiric ceftriaxone. Continue - Check blood cx, urine cx - blood cx growing gram positive cocci clusters - switch ceftriaxone to IV zosyn # Acute on chronic blood loss anemia / GAVE -She has a hx of GAVE & iron deficiency - hgb improved from 5.5. to 11.4 after 2 units - follows with Dr. Rico. - s/p EGD 12/11/20: gastric antral vascular ectasia wo bleeding. Tread with argon plasma coagulation. Otherwise normal exam. - d/w Dr. Warner, recommends to transfuse and monitor H/H. No indication for urgent EGD. If stable, to f/u with Dr. Rico in clinic. # Thrombocytopenia - PLT 40 - ordered 1 units apheresis PLTS - PLT improved to 43 ordered 2nd unit pheresis PLT #ALTAF with hyperkalemia - baseline Cr ~1.0 - likely pre-renal - check renal US - c/w IV NS 100 cc/hr. - give one dose of kayaxalate - hold potassium supplement. - hyperkalemia resolved # Liver cirrhosis - check coags - ammonia 44. T bili 2.2 - check CT abdo pelvis - check liver US - c/w rifaximin - give 30 ml lactulose, was not seen on home med list - unable to take PO got 300 mL lactulose enema. # Asthma with COPD - arrived on RA, now on 4L - resume inhalers. # Chronic HFpEF (grade 1) / HTN - hold lilsinopril in setting of ALTAF - resume metoprolol # MACHELLE (uses 3L of O2 at night) - nocturnal O2 # NIDDM - ISS and FSBS AC and HS - hypoglycemic precautions # Hypothyroidism - Levothyroxine # Class 2 obesity Complicates care DVT ppx: SCDs. TEDs. Dispo: home after at least 2 midnights stay VS, I&O, 24H, Fishbone Vital Signs/I&O Vital Signs Date Time Temp Pulse Resp B/P (MAP) Pulse Ox O2 Delivery O2 Flow Rate FiO2 12/19/20 20:00 97.0 80 18 122/58 (79) 100 Nasal Cannula 3.0 I&O- Last 24 Hours up to 6 AM 12/19/20 06:00 Intake Total 3248 ml Balance 3248 ml Laboratory Data 24H LABS Laboratory Tests 2 12/19/20 00:56: Bedside Glucose (Misc Panel) 94 12/19/20 02:38: Immature Granulocyte % (Auto) 0.5, Neutrophils (%) (Auto) 92.6H, Lymphocytes (%) (Auto) 3.7L, Monocytes (%) (Auto) 2.3, Eosinophils (%) (Auto) 0.9, Basophils (%) (Auto) 0.0, Neutrophils # (Auto) 5.2, Lymphocytes # (Auto) 0.2L, Monocytes # (Auto) 0.1, Eosinophils # (Auto) 0.1, Basophils # (Auto) 0.0, Nucleated Red Blood Cells % (auto) 0.0, Prothrombin Time 16.9H, Prothromb Time International Ratio 1.33, Anion Gap 9, Glomerular Filtration Rate 37.6, Calcium Level 8.8, Magnesium Level 1.5L, Total Bilirubin 2.5H, Aspartate Amino Transf (AST/SGOT) 52H, Alanine Aminotransferase (ALT/SGPT) 40, Alkaline Phosphatase 189H, Total Protein 6.6, Albumin 2.2L, Albumin/Globulin Ratio 0.5L 12/19/20 06:28: Bedside Glucose (Misc Panel) 134H 12/19/20 12:48: Bedside Glucose (Misc Panel) 139H 12/19/20 14:47: Lab Scanned Report Transfusion Record 12/19/20 17:30: Bedside Glucose (Misc Panel) 100 CBC/BMP Laboratory Tests 12/19/20 02:38 Microbiology Microbiology 12/18/20 Urine Culture, Received Pending 12/18/20 Blood Culture - Preliminary, Resulted 12/18/20 Blood Culture - Preliminary, Resulted LOREE FERGUSON MD Dec 19, 2020 21:07
[2020-12-19] MEDS ORDERED: PIPERACILLIN/TAZOBACTAM SOD 4.5 GM in D5W MINI-BAG PLUS 50 ML IV ONE (22:00)
[2020-12-20] VITALS (10 sets, daily range): BP systolic 96–147; BP diastolic 49–82
[2020-12-20] MEDS: METOPROLOL TART 12.5 MG PER 1/2 TAB PO SCH ×3 (00:25→21:39)
[2020-12-20] MEDS: D5W/0.9% SODIUM CHLORIDE 1,000 ML IV SCH ×2 (04:47→17:37)
[2020-12-20] MEDS: PIPERACILLIN/TAZOBACTAM SOD 3.375 GM in D5W MINI-BAG PLUS 50 ML IV SCH ×4 (05:02→21:38)
[2020-12-20] MEDS: LEVOTHYROXINE 100MCG TABLET (0.1MG) PO SCH (05:03)
[2020-12-20 05:44] LABS: BASO % 0.2 % (0.0-1.0); EOS # 0.2 10^3/uL (0.0-0.5); EOS % 3.1 % (0.0-3.0); HEMATOCRIT 30.2 % (36.0-47.0); HEMOGLOBIN 9.6 g/dl (12.0-15.5); LYMPH # 0.5 10^3/uL (1.5-5.0); LYMPH % 7.8 % (24.0-44.0); MEAN CORPUSCULAR HEMOGLOBIN 31.1 pg (27.0-33.0); MEAN CORPUSCULAR HGB CONC 31.8 g/dl (32.0-36.5); MEAN CORPUSCULAR VOLUME 97.7 fl (80.0-96.0); MONO # 0.4 10^3/uL (0.0-0.8); NEUTROPHILS # 5.1 10^3/uL (1.5-8.5); NEUTROPHILS % 82.4 % (36.0-66.0); RED BLOOD COUNT 3.09 10^6/uL (4.00-5.40); WHITE BLOOD COUNT 6.2 10^3/uL (4.0-10.0)
[2020-12-20 05:56] LABS: PLATELET COUNT, AUTOMATED 34 10^3/uL (150-450)
[2020-12-20 06:07] LABS: BILIRUBIN,TOTAL 1.8 MG/DL (0.2-1.0); CALCIUM LEVEL 8.4 MG/DL (8.8-10.2); CREATININE FOR GFR 1.08 MG/DL (0.55-1.30); GLOMERULAR FILTRATION RATE 51.6 (>32); TOTAL PROTEIN 5.5 GM/DL (6.4-8.2)
[2020-12-20] MEDS: TIOTROPIUM INHALER/CAPSULE (SPIRIVA) INH SCH (07:50)
[2020-12-20] MEDS: PANTOPRAZOLE 40MG TAB (PROTONIX) PO SCH ×2 (11:05→21:39)
[2020-12-20] MEDS: LISINOPRIL *2.5 MG* TAB PO SCH (11:05)
[2020-12-20] MEDS: SUCRALFATE 1 GM TAB PO SCH ×2 (11:05→21:39)
[2020-12-20] MEDS: FERROUS SULFATE 325MG TAB PO SCH (11:06)
[2020-12-20] MEDS: rifAXIMin 550 MG TAB (XIFAXAN) PO SCH ×2 (11:06→21:39)
[2020-12-20 12:49] LABS: HEMATOCRIT 33.3 % (36.0-47.0); HEMOGLOBIN 10.4 g/dl (12.0-15.5); MEAN CORPUSCULAR HEMOGLOBIN 31.7 pg (27.0-33.0); MEAN CORPUSCULAR HGB CONC 31.2 g/dl (32.0-36.5); MEAN CORPUSCULAR VOLUME 101.5 fl (80.0-96.0); RED BLOOD COUNT 3.28 10^6/uL (4.00-5.40); WHITE BLOOD COUNT 5.5 10^3/uL (4.0-10.0)
[2020-12-20 12:51] LABS: PLATELET COUNT, AUTOMATED 33 10^3/uL (150-450)
--- NOTE | 2020-12-20 19:06 | IPNPDOC ---
Subjective Date Seen The patient was seen on 12/20/20. Subjective Chief Complaint/HPI Mrs. Gonzalez is an 85-year-old female hypertension, gkz-ecbqudr-wmfwwrkns diabetes mellitus, obesity, and hypothyroidism who presents with altered mental status secondary to anemia and E. coli UTI. This morning, she is mentally doing better. She correctly identifies me as the doctor. She knows she is in [facility] and we are at the end of November. She denies any chest pain or dyspnea. This morning, hemoglobin initially dropped from 11.4 to 9.6. Repeat hemoglobin improved to 10.4. Objective Physical Examination General Exam: Positive: Alert, Cooperative Neck Exam: Positive: Supple Chest Exam: Positive: Clear to auscultation Heart Exam: Positive: Rate Normal, Regular Rhythm Abdomen Exam: Positive: Normal bowel sounds, Soft; Negative: Tenderness Neuro Exam: Positive: Normal Speech Psych Exam: Positive: Mood NL, Oriented x 3 Assessment /Plan Assessment Mrs. Gonzalez is an 85-year-old female hypertension, ebi-bzivzlc-ywxnkpvdp diabetes mellitus, obesity, and hypothyroidism who presents with altered mental status secondary to anemia and E. coli UTI. Patient has a history of GAVE. Her last EGD was on 12/11/2020 which demonstrated gastric antral vascular ectasia without bleeding. It was treated with argon plasma coagulation. During this hospitalization, Dr. Tovar was reached out to. Recommends transfusion and to monitor H&H. No urgent need for EGD. Patient to follow-up with Dr. Rico's clinic after hospitalization. Plan/VTE VTE Prophylaxis Ordered?: Yes Plan 1. Metabolic encephalopathy secondary to sepsis/UTI and gram-positive bacterem ia Urine culture grew E. coli Pending blood culture results. Growing gram-positive cocci in clusters x2 Repeating blood cultures Ordered echocardiogram Patient has been getting better on the Zosyn. We will hold off on starting Vanco and order a MRSA PCR screen. 2. E. coli UTI Pansensitive Zosyn day 2 3. 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 It was treated with argon plasma coagulation. During this hospitalization, Dr. Warner was reached out to. No urgent need for EGD H&H improved with 2 units of blood Monitor H&H Patient to follow-up with Dr. Rico's office 4. ALTAF with hyperkalemia Baseline creatinine around 1 Creatinine on admission 1.67 Improved with blood transfusion and fluids Resolved 5. Liver cirrhosis Continue rifaximin 6. MACHELLE Uses 3 L nocturnally 7. NIDDM Sliding scale insulin 8. Hypothyroidism Continue levothyroxine 9. Obesity BMI 40.5 Complicates care 10. DVT prophylaxis SCDs and teds Disposition: Pending clinical improvement and blood culture results VS, I&O, 24H, Fishbone Vital Signs/I&O Vital Signs Date Time Temp Pulse Resp B/P (MAP) Pulse Ox O2 Delivery O2 Flow Rate FiO2 12/20/20 18:40 67 132/61 (84) 12/20/20 16:40 97.2 18 98 Nasal Cannula 3.0 12/20/20 01:30 96 I&O- Last 24 Hours up to 6 AM 12/20/20 06:00 Intake Total 1829 ml Output Total 0 ml Balance 1829 ml Laboratory Data 24H LABS Laboratory Tests 2 12/20/20 00:32: Bedside Glucose (Misc Panel) 101 12/20/20 05:17: Immature Granulocyte % (Auto) 0.5, Neutrophils (%) (Auto) 82.4H, Lymphocytes (%) (Auto) 7.8L, Monocytes (%) (Auto) 6.0, Eosinophils (%) (Auto) 3.1H, Basophils (%) (Auto) 0.2, Neutrophils # (Auto) 5.1, Lymphocytes # (Auto) 0.5L, Monocytes # (Auto) 0.4, Eosinophils # (Auto) 0.2, Basophils # (Auto) 0.0, Nucleated Red Blood Cells % (auto) 0.0, Immature Platelet Fraction 8.5, Anion Gap 0L, Glomerular Filtration Rate 51.6, Calcium Level 8.4L, Magnesium Level 2.0, Total Bilirubin 1.8H, Aspartate Amino Transf (AST/SGOT) 47H, Alanine Aminotransferase (ALT/SGPT) 32, Alkaline Phosphatase 139H, Total Protein 5.5L, Albumin 2.0L, Albumin/Globulin Ratio 0.6L 12/20/20 07:15: Bedside Glucose (Misc Panel) 117H 12/20/20 12:14: Nucleated Red Blood Cells % (auto) 0.0 12/20/20 14:46: Bedside Glucose (Misc Panel) 134H CBC/BMP Laboratory Tests 12/20/20 05:17 12/20/20 12:14 Microbiology Microbiology 12/18/20 Urine Culture - Final, Complete Escherichia Coli 12/18/20 Blood Culture - Preliminary, Resulted 12/18/20 Blood Culture - Preliminary, Resulted HEAVEN DIANA DO Dec 20, 2020 19:06
[2020-12-20] MEDS: ATORVASTATIN 10 MG TAB PO SCH (21:39)
[2020-12-21] VITALS (7 sets, daily range): BP systolic 106–134; BP diastolic 37–62
[2020-12-21] MEDS: PIPERACILLIN/TAZOBACTAM SOD 3.375 GM in D5W MINI-BAG PLUS 50 ML IV SCH ×4 (03:59→21:12)
[2020-12-21 05:24] LABS: BASO % 0.5 % (0.0-1.0); EOS # 0.3 10^3/uL (0.0-0.5); EOS % 7.7 % (0.0-3.0); HEMATOCRIT 32.8 % (36.0-47.0); HEMOGLOBIN 9.8 g/dl (12.0-15.5); LYMPH % 24.5 % (24.0-44.0); MEAN CORPUSCULAR HEMOGLOBIN 30.8 pg (27.0-33.0); MEAN CORPUSCULAR HGB CONC 29.9 g/dl (32.0-36.5); MEAN CORPUSCULAR VOLUME 103.1 fl (80.0-96.0); MONO # 0.6 10^3/uL (0.0-0.8); MONO % 14.9 % (2.0-8.0); NEUTROPHILS % 52.1 % (36.0-66.0); RED BLOOD COUNT 3.18 10^6/uL (4.00-5.40); WHITE BLOOD COUNT 3.9 10^3/uL (4.0-10.0)
[2020-12-21 05:36] LABS: PLATELET COUNT, AUTOMATED 42 10^3/uL (150-450)
[2020-12-21] MEDS: LEVOTHYROXINE 100MCG TABLET (0.1MG) PO SCH (05:38)
[2020-12-21 05:48] LABS: ALBUMIN 1.8 GM/DL (3.2-5.2); BILIRUBIN,TOTAL 1.4 MG/DL (0.2-1.0); CALCIUM LEVEL 7.7 MG/DL (8.8-10.2); CREATININE FOR GFR 1.03 MG/DL (0.55-1.30); GLOMERULAR FILTRATION RATE 54.5 (>32); MAGNESIUM LEVEL 1.6 MG/DL (1.8-2.4); TOTAL PROTEIN 5.6 GM/DL (6.4-8.2)
[2020-12-21 07:20] LABS: C REACTIVE PROTEIN QUANTITATIV 2.88 MG/DL (0.00-0.30)
[2020-12-21] MEDS: TIOTROPIUM INHALER/CAPSULE (SPIRIVA) INH SCH (07:57)
[2020-12-21] MEDS: PANTOPRAZOLE 40MG TAB (PROTONIX) PO SCH ×2 (09:25→21:05)
[2020-12-21] MEDS: METOPROLOL TART 12.5 MG PER 1/2 TAB PO SCH ×2 (09:25→21:08)
[2020-12-21] MEDS: LISINOPRIL *2.5 MG* TAB PO SCH (09:25)
[2020-12-21] MEDS: D5W/0.9% SODIUM CHLORIDE 1,000 ML IV SCH (09:25)
[2020-12-21] MEDS: rifAXIMin 550 MG TAB (XIFAXAN) PO SCH ×2 (09:26→21:06)
[2020-12-21] MEDS: FERROUS SULFATE 325MG TAB PO SCH (09:26)
[2020-12-21] MEDS: SUCRALFATE 1 GM TAB PO SCH ×2 (09:26→21:05)
--- NOTE | 2020-12-21 15:02 | IPNPDOC ---
Subjective Date Seen The patient was seen on 12/21/20. Subjective Chief Complaint/HPI Mrs. Gonzalez is an 85-year-old female hypertension, juy-hsjfxba-algdihcrn diabetes mellitus, obesity, and hypothyroidism who presents with altered mental status secondary to anemia and E. coli UTI. This morning, she denies any chest pain or dyspnea. Her blood cultures x2 grew staph capitis. This is oxacillin sensitive. Repeat blood cultures were obtained. Echocardiogram ordered and pending to be done Objective Physical Examination General Exam: Positive: Alert, Cooperative Neck Exam: Positive: Supple Chest Exam: Positive: Clear to auscultation Heart Exam: Positive: Rate Normal, Regular Rhythm Abdomen Exam: Positive: Normal bowel sounds, Soft; Negative: Tenderness Neuro Exam: Positive: Normal Speech Psych Exam: Positive: Mood NL, Oriented x 3 Assessment /Plan Assessment Mrs. Gonzalez is an 85-year-old female hypertension, kac-nodpkhz-vfrpbzebt diabetes mellitus, obesity, and hypothyroidism who presents with altered mental status secondary to anemia and E. coli UTI. Patient has a history of GAVE. Her last EGD was on 12/11/2020 which demonstrated gastric antral vascular ectasia without bleeding. It was treated with argon plasma coagulation. During this hospitalization, Dr. Tovar was reached out to. Recommends transfusion and to monitor H&H. No urgent need for EGD. Patient to follow-up with Dr. Rico's clinic after hospitalization. Otherwise, patient blood culture x2 returned positive for staph capitis. Will order repeat blood cultures and echocardiogram. Plan/VTE VTE Prophylaxis Ordered?: Yes Plan 1. Metabolic encephalopathy secondary to sepsis/UTI and gram-positive bacteremia Urine culture grew E. coli Pending blood culture results. Growing gram-positive cocci in clusters x2 Repeating blood cultures Ordered echocardiogram Patient has been getting better on the Zosyn. MRSA PCR is negative. 2. E. coli UTI Pansensitive Zosyn day 3 3. Gram-positive bacteremia Blood cultures positive for staph capitis x2. Oxacillin sensitive Continue with Zosyn day 3 Repeat blood cultures obtained Echocardiogram ordered 4. 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 It was treated with argon plasma coagulatio n. During this hospitalization, Dr. Warner was reached out to. No urgent need for EGD H&H improved with 2 units of blood Monitor H&H Patient to follow-up with Dr. Rico's office 5. ALTAF with hyperkalemia Baseline creatinine around 1 Creatinine on admission 1.67 Improved with blood transfusion and fluids Resolved 6. Liver cirrhosis Continue rifaximin 7. MACHELLE Uses 3 L nocturnally 8. NIDDM Sliding scale insulin 9. Hypothyroidism Continue levothyroxine 10. Obesity BMI 40.5 Complicates care 11. DVT prophylaxis SCDs and teds Disposition: Pending echocardiogram and repeat blood cultures VS, I&O, 24H, Fishbone Vital Signs/I&O Vital Signs Date Time Temp Pulse Resp B/P (MAP) Pulse Ox O2 Delivery O2 Flow Rate FiO2 12/21/20 12:00 97.5 68 18 134/62 (86) 99 Nasal Cannula 3.0 12/20/20 01:30 96 I&O- Last 24 Hours up to 6 AM 12/21/20 06:00 Intake Total 952 ml Output Total 500 ml Balance 452 ml Laboratory Data 24H LABS Laboratory Tests 2 12/20/20 18:39: Bedside Glucose (Misc Panel) 120H 12/21/20 00:45: Bedside Glucose (Misc Panel) 118H 12/21/20 04:00: Methicillin-Resist S.aureus DNA PCR NOT DETECTED 12/21/20 05:03: Immature Granulocyte % (Auto) 0.3, Neutrophils (%) (Auto) 52.1, Lymphocytes (%) (Auto) 24.5, Monocytes (%) (Auto) 14.9H, Eosinophils (%) (Auto) 7.7H, Basophils (%) (Auto) 0.5, Neutrophils # (Auto) 2.0, Lymphocytes # (Auto) 1.0L, Monocytes # (Auto) 0.6, Eosinophils # (Auto) 0.3, Basophils # (Auto) 0.0, Nucleated Red Blood Cells % (auto) 0.0, Anion Gap 5L, Glomerular Filtration Rate 54.5, Calcium Level 7.7L, Magnesium Level 1.6L, Total Bilirubin 1.4H, Aspartate Amino Transf (AST/SGOT) 48H, Alanine Aminotransferase (ALT/SGPT) 31, Alkaline Phosphatase 156H, C-Reactive Protein, Quantitative 2.88H, Total Protein 5.6L, Albumin 1.8L, Albumin/Globulin Ratio 0.5L 12/21/20 05:41: Bedside Glucose (Misc Panel) 125H 12/21/20 07:57: Erythrocyte Sedimentation Rate 27 CBC/BMP Laboratory Tests 12/21/20 05:03 Microbiology Microbiology 12/20/20 Blood Culture, Received Pending 12/20/20 Blood Culture, Received Pending 12/18/20 Urine Culture - Final, Complete Escherichia Coli 12/18/20 Blood Culture - Final, Complete Staphylococcus Capitis 12/18/20 Blood Culture - Final, Complete Staphylococcus Capitis HEAVEN DIANA DO Dec 21, 2020 15:01
--- NOTE | 2020-12-21 17:15 | ECGEPIP ---
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
[2020-12-21] MEDS: ATORVASTATIN 10 MG TAB PO SCH (21:04)
[2020-12-22] MEDS: PIPERACILLIN/TAZOBACTAM SOD 3.375 GM in D5W MINI-BAG PLUS 50 ML IV SCH ×4 (03:11→21:50)
[2020-12-22] MEDS: LEVOTHYROXINE 100MCG TABLET (0.1MG) PO SCH (05:41)
[2020-12-22 05:56] LABS: BASO % 0.5 % (0.0-1.0); EOS # 0.3 10^3/uL (0.0-0.5); EOS % 7.7 % (0.0-3.0); HEMOGLOBIN 10.1 g/dl (12.0-15.5); LYMPH % 25.3 % (24.0-44.0); MEAN CORPUSCULAR HEMOGLOBIN 30.9 pg (27.0-33.0); MEAN CORPUSCULAR HGB CONC 31.6 g/dl (32.0-36.5); MEAN CORPUSCULAR VOLUME 97.9 fl (80.0-96.0); MONO # 0.7 10^3/uL (0.0-0.8); NEUTROPHILS # 1.9 10^3/uL (1.5-8.5); NEUTROPHILS % 48.2 % (36.0-66.0); RED BLOOD COUNT 3.27 10^6/uL (4.00-5.40); WHITE BLOOD COUNT 3.9 10^3/uL (4.0-10.0)
[2020-12-22 06:00] VITALS: BP 123/54
[2020-12-22 06:12] LABS: PLATELET COUNT, AUTOMATED 38 10^3/uL (150-450)
[2020-12-22 06:26] LABS: ALBUMIN 1.7 GM/DL (3.2-5.2); BILIRUBIN,TOTAL 1.4 MG/DL (0.2-1.0); CREATININE FOR GFR 0.99 MG/DL (0.55-1.30); MAGNESIUM LEVEL 1.4 MG/DL (1.8-2.4); POTASSIUM SERUM 4.3 MEQ/L (3.5-5.1); TOTAL PROTEIN 5.3 GM/DL (6.4-8.2)
[2020-12-22] MEDS: TIOTROPIUM INHALER/CAPSULE (SPIRIVA) INH SCH (07:23)
[2020-12-22] MEDS: METOPROLOL TART 12.5 MG PER 1/2 TAB PO SCH ×2 (09:00→21:52)
[2020-12-22] MEDS: LISINOPRIL *2.5 MG* TAB PO SCH (09:00)
[2020-12-22] MEDS: PANTOPRAZOLE 40MG TAB (PROTONIX) PO SCH ×2 (09:11→21:49)
[2020-12-22] MEDS: FERROUS SULFATE 325MG TAB PO SCH (09:11)
[2020-12-22] MEDS: SUCRALFATE 1 GM TAB PO SCH ×2 (09:11→21:48)
[2020-12-22] MEDS: rifAXIMin 550 MG TAB (XIFAXAN) PO SCH ×2 (09:11→21:52)
--- NOTE | 2020-12-22 11:07 | ECHO ---
ECHOCARDIOGRAM DATE OF PROCEDURE: 12/21/2020 Gender: Height: 157 cm Weight: 100 kg PATIENT LOCATION: Room [address] REFERRING PROVIDER: HEAVEN DIANA DO REASON FOR STUDY: Bacteremia 2D MEASUREMENTS: IVS 1.1 cm LV 4.8 cm LVPW 1.2 cm LA 3.4 cm Aorta 2.9 cm DOPPLER MEASUREMENT Peak velocity across the aortic valve 4.5 m/s Peak velocity across the LVOT 1.0 m/s Peak gradient across the aortic valve 79 mmHg Mean gradient across the aortic valve 49 mmHg Mitral E 1.1 Mitral A 1.0 with a ratio of 1.0 Maximum tricuspid valve velocity 2.5 m/s 2D COMMENTS: 1. Normal left ventricular size and wall thickness with a normal global left ventricular systolic function. The estimated left ventricular systolic ejection fraction is 65% to 70%. 2. Normal left atrium. Normal right atrium and right ventricle noted in limited views. 3. The atrial septum appeared to be normal without evidence of defect or shunt. 4. Normal aortic root. 5. No pericardial effusion seen. 6. Moderately calcified aortic valve with decrease in leaflet excursion. Mildly calcified mitral annulus with normal anterior mitral valve leaflet motion. Normal tricuspid valve. The pulmonic valve and proximal pulmonary artery branches were not well visualized. 7. The inferior vena cava was not visualized. Doppler detects probably moderate aortic regurgitation, mild mitral regurgitation, and mild tricuspid regurgitation. The calculated pulmonary artery systolic pressure varies between 30 to 40 mmHg. Assessment of the left ventricular diastolic function appeared to be normal. IMPRESSION: 1. Normal global left ventricular systolic and diastolic function with a hyperdynamic left ventricle. 2. Aortic valve sclerosis with moderate aortic regurgitation and probably severe aortic stenosis. 3. Mitral annular calcification with mild mitral regurgitation. 4. Mild tricuspid regurgitation with yukb-ha-hldbvlkk hypertension. The right heart chambers were not well visualized. 5. If endocarditis is a concern, I would recommend a transesophageal echocardiogram particularly to check the aortic valve.
[2020-12-22] MEDS ORDERED: NS 500 ML IV ONE (11:30)
--- NOTE | 2020-12-22 11:31 | IPNPDOC ---
Subjective Date Seen The patient was seen on 12/22/20. Subjective Chief Complaint/HPI Mrs. Gonzalez is an 85-year-old female hypertension, psx-nmazwmh-zjkceejzi diabetes mellitus, obesity, and hypothyroidism who presents with altered mental status secondary to anemia and E. coli UTI. This morning, she denied any chest pain or dyspnea. No fever since admission and repeat blood cultures has remained negative. Echocardiogram returned. No vegetations observed on TTE. Objective Physical Examination General Exam: Positive: Alert, Cooperative Neck Exam: Positive: Supple Chest Exam: Positive: Clear to auscultation Heart Exam: Positive: Rate Normal, Regular Rhythm, Murmurs Abdomen Exam: Positive: Normal bowel sounds, Soft; Negative: Tenderness Neuro Exam: Positive: Normal Speech Psych Exam: Positive: Mood NL, Oriented x 3 Assessment /Plan Assessment Mrs. Gonzalez is an 85-year-old female hypertension, agl-lqwhwqd-vxljftpfe diabetes mellitus, obesity, and hypothyroidism who presents with altered mental status secondary to anemia and E. coli UTI. Patient has a history of GAVE. Her last EGD was on 12/11/2020 which demonstrated gastric antral vascular ectasia without bleeding. It was treated with argon plasma coagulation. During this hospitalization, Dr. Tovar was reached out to. Recommends transfusion and to monitor H&H. No urgent need for EGD. Patient to follow-up with Dr. Rico's clinic after hospitalization. Otherwise, patient blood culture x2 returned positive for staph capitis. Will order repeat blood cultures and echocardiogram. Repeat blood cultures NGTD. Echocardiogram has no obvious vegetations. Plan/VTE VTE Prophylaxis Ordered?: Yes Plan 1. Metabolic encephalopathy secondary to sepsis/UTI and gram-positive bactere soraya Urine culture grew E. coli Pending blood culture results. Growing gram-positive cocci in clusters x2 Repeating blood cultures No vegetations on TTE Patient has been getting better on the Zosyn. MRSA PCR is negative. 2. E. coli UTI Pansensitive Zosyn day 4 3. Gram-positive bacteremia Blood cultures positive for staph capitis x2. Oxacillin sensitive Continue with Zosyn day 4 Repeat blood cultures obtained TTE negative for vegetations 4. 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 It was treated with argon plasma coagulation. During this hospitalization, Dr. Warner was reached out to. No urgent need for EGD H&H improved with 2 units of blood Monitor H&H Patient to follow-up with Dr. Rico's office 5. ALTAF with hyperkalemia Baseline creatinine around 1 Creatinine on admission 1.67 Improved with blood transfusion and fluids Resolved 6. Liver cirrhosis Continue rifaximin 7. MACHELLE Uses 3 L nocturnally 8. NIDDM Sliding scale insulin 9. Hypothyroidism Continue levothyroxine 10. Obesity BMI 40.5 Complicates care 11. DVT prophylaxis SCDs and teds Disposition: Physical therapy recommending rehab VS, I&O, 24H, Fishbone Vital Signs/I&O Vital Signs Date Time Temp Pulse Resp B/P (MAP) Pulse Ox O2 Delivery O2 Flow Rate FiO2 12/22/20 09:00 54 99/41 12/22/20 06:00 97.9 16 96 Nasal Cannula 3.0 12/20/20 01:30 96 I&O- Last 24 Hours up to 6 AM 12/22/20 06:00 Intake Total 1320 ml Output Total 0 ml Balance 1320 ml Laboratory Data 24H LABS Laboratory Tests 2 12/22/20 05:34: Immature Granulocyte % (Auto) 0.3, Neutrophils (%) (Auto) 48.2, Lymphocytes (%) (Auto) 25.3, Monocytes (%) (Auto) 18.0H, Eosinophils (%) (Auto) 7.7H, Basophils (%) (Auto) 0.5, Neutrophils # (Auto) 1.9, Lymphocytes # (Auto) 1.0L, Monocytes # (Auto) 0.7, Eosinophils # (Auto) 0.3, Basophils # (Auto) 0.0, Nucleated Red Blood Cells % (auto) 0.0, Immature Platelet Fraction 13.5H, Anion Gap 6L, Glomerular Filtration Rate 57.0, Calcium Level 8.0L, Magnesium Level 1.4L, Total Bilirubin 1.4H, Aspartate Amino Transf (AST/SGOT) 45H, Alanine Aminotransferase (ALT/SGPT) 30, Alkaline Phosphatase 139H, Total Protein 5.3L, Albumin 1.7L, Albumin/Globulin Ratio 0.5L CBC/BMP Laboratory Tests 12/22/20 05:34 Microbiology Microbiology 12/20/20 Blood Culture - Preliminary, Resulted No growth after 24 hours . All specim... 12/20/20 Blood Culture - Preliminary, Resulted No growth after 24 hours . All specim... 12/18/20 Urine Culture - Final, Complete Escherichia Coli 12/18/20 Blood Culture - Final, Complete Staphylococcus Capitis 12/18/20 Blood Culture - Final, Complete Staphylococcus Capitis HEAVEN DIANA DO Dec 22, 2020 11:31
[2020-12-22 14:00] VITALS: BP 109/50
[2020-12-22] MEDS: ATORVASTATIN 10 MG TAB PO SCH (21:50)
[2020-12-22 22:00] VITALS: BP 134/50
[2020-12-23] MEDS: PIPERACILLIN/TAZOBACTAM SOD 3.375 GM in D5W MINI-BAG PLUS 50 ML IV SCH ×4 (03:36→21:58)
[2020-12-23 06:00] VITALS: BP 119/56
[2020-12-23] MEDS: LEVOTHYROXINE 100MCG TABLET (0.1MG) PO SCH (06:05)
[2020-12-23 06:32] LABS: BASO % 0.6 % (0.0-1.0); EOS # 0.3 10^3/uL (0.0-0.5); EOS % 7.5 % (0.0-3.0); HEMATOCRIT 30.4 % (36.0-47.0); HEMOGLOBIN 10.1 g/dl (12.0-15.5); LYMPH # 0.9 10^3/uL (1.5-5.0); LYMPH % 26.3 % (24.0-44.0); MEAN CORPUSCULAR HEMOGLOBIN 31.8 pg (27.0-33.0); MEAN CORPUSCULAR HGB CONC 33.2 g/dl (32.0-36.5); MEAN CORPUSCULAR VOLUME 95.6 fl (80.0-96.0); MONO # 0.6 10^3/uL (0.0-0.8); MONO % 16.8 % (2.0-8.0); NEUTROPHILS # 1.7 10^3/uL (1.5-8.5); NEUTROPHILS % 48.5 % (36.0-66.0); RED BLOOD COUNT 3.18 10^6/uL (4.00-5.40); WHITE BLOOD COUNT 3.6 10^3/uL (4.0-10.0)
[2020-12-23 06:39] LABS: PLATELET COUNT, AUTOMATED 39 10^3/uL (150-450)
[2020-12-23 07:03] LABS: ALBUMIN 1.8 GM/DL (3.2-5.2); BILIRUBIN,TOTAL 1.2 MG/DL (0.2-1.0); CALCIUM LEVEL 7.8 MG/DL (8.8-10.2); CREATININE FOR GFR 1.09 MG/DL (0.55-1.30); MAGNESIUM LEVEL 1.4 MG/DL (1.8-2.4); POTASSIUM SERUM 4.2 MEQ/L (3.5-5.1); TOTAL PROTEIN 5.4 GM/DL (6.4-8.2)
[2020-12-23] MEDS: TIOTROPIUM INHALER/CAPSULE (SPIRIVA) INH SCH (07:36)
[2020-12-23] MEDS: LISINOPRIL *2.5 MG* TAB PO SCH (09:00)
[2020-12-23] MEDS: METOPROLOL TART 12.5 MG PER 1/2 TAB PO SCH ×2 (09:00→21:58)
[2020-12-23] MEDS: MAG SULF 1GM/100ML (MAG RUN) 1 GM in IV 1 EA IV SCH ×4 (09:28→17:52)
[2020-12-23] MEDS: PANTOPRAZOLE 40MG TAB (PROTONIX) PO SCH ×2 (09:29→21:58)
[2020-12-23] MEDS: SUCRALFATE 1 GM TAB PO SCH ×2 (09:29→21:58)
[2020-12-23] MEDS: rifAXIMin 550 MG TAB (XIFAXAN) PO SCH ×2 (09:29→21:58)
[2020-12-23] MEDS: FERROUS SULFATE 325MG TAB PO SCH (09:29)
[2020-12-23 14:00] VITALS: BP 134/54
[2020-12-23] MEDS ORDERED: MAGNESIUM SULFATE 1GM/100ML D5W BAG (10MG/ML) As Ordered ONE ×2 (14:13→17:38)
--- NOTE | 2020-12-23 15:59 | IPNPDOC ---
Subjective Date Seen The patient was seen on 12/23/20. Subjective Chief Complaint/HPI Mrs. Gonzalez is an 85-year-old female hypertension, ovb-hnpzsfo-veiphwaod diabetes mellitus, obesity, and hypothyroidism who presents with altered mental status secondary to anemia and E. coli UTI. She feels better and denies any chest pain or dyspnea. I had touch based with ID. Staph capitis is not a bacteria that typically cause endocarditis. Since patient is not febrile or have leukocytosis, an option would be to treat the UTI for 7 days, then about 1 to 2 weeks later obtain repeat blood cultures to see if Staph capitis returns. Objective Physical Examination General Exam: Positive: Alert, Cooperative Neck Exam: Positive: Supple Chest Exam: Positive: Clear to auscultation Heart Exam: Positive: Rate Normal, Regular Rhythm, Murmurs Abdomen Exam: Positive: Normal bowel sounds, Soft; Negative: Tenderness Neuro Exam: Positive: Normal Speech Psych Exam: Positive: Mood NL, Oriented x 3 Assessment /Plan Assessment Mrs. Gonzalez is an 85-year-old female hypertension, kvw-iaohuuu-amaimjyjl diabetes mellitus, obesity, and hypothyroidism who presents with altered mental status secondary to anemia and E. coli UTI. Patient has a history of GAVE. Her last EGD was on 12/11/2020 which demonstrated gastric antral vascular ectasia without bleeding. It was treated with argon plasma coagulation. During this hospitalization, Dr. Tovar was reached out to. Recommends transfusion and to monitor H&H. No urgent need for EGD. Patient to follow-up with Dr. Rico's clinic after hospitalization. Otherwise, patient blood culture x2 returned positive for staph capitis. Will order repeat blood cultures and echocardiogram. Repeat blood cultures NGTD. Echocardiogram has no obvious vegetations. Patient will need repeat blood cultures about a week to two weeks. Plan/VTE VTE Prophylaxis Ordered?: Yes Plan 1. Metabolic encephalopathy secondary to sepsis/UTI and gram-positive bacteremia Urine culture grew E. coli Pending blood culture results. Growing gram-positive cocci in clusters x2 Repeating blood cultures No vegetations on TTE Patient has been getting better on the Zosyn. MRSA PCR is negative. 2. E. coli UTI Pansensitive Zosyn day 5 3. Gram-positive bacteremia Blood cultures positive for staph capitis x2. Oxacillin sensitive Continue with Zosyn day 5 Repeat blood cultures obtained TTE negative for vegetations -Repeat blood cultures outpatient, 1 to 2 weeks after completing antibiotics for UTI 4. 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 It was treated with argon plasma coagulation. During this hospitalization, Dr. Warner was reached out to. No urgent need for EGD H&H improved with 2 units of blood Monitor H&H Patient to follow-up with Dr. Rico's office 5. ALTAF with hyperkalemia Baseline creatinine around 1 Creatinine on admission 1.67 Improved with blood transfusion and fluids Resolved 6. Liver cirrhosis Continue rifaximin 7. MACHELLE Uses 3 L nocturnally 8. NIDDM Sliding scale insulin 9. Hypothyroidism Continue levothyroxine 10. Obesity BMI 40.5 Complicates care 11. DVT prophylaxis SCDs and teds Disposition: Physical therapy recommending 1 to 2 more days before home with services VS, I&O, 24H, Fishbone Vital Signs/I&O Vital Signs Date Time Temp Pulse Resp B/P (MAP) Pulse Ox O2 Delivery O2 Flow Rate FiO2 12/23/20 14:00 98.0 63 17 134/54 (80) 98 Nasal Cannula 3.0 12/20/20 01:30 96 I&O- Last 24 Hours up to 6 AM 12/23/20 06:00 Intake Total 1418 ml Balance 1418 ml Laboratory Data 24H LABS Laboratory Tests 2 12/23/20 06:05: Immature Granulocyte % (Auto) 0.3, Neutrophils (%) (Auto) 48.5, Lymphocytes (%) (Auto) 26.3, Monocytes (%) (Auto) 16.8H, Eosinophils (%) (Auto) 7.5H, Basophils (%) (Auto) 0.6, Neutrophils # (Auto) 1.7, Lymphocytes # (Auto) 0.9L, Monocytes # (Auto) 0.6, Eosinophils # (Auto) 0.3, Basophils # (Auto) 0.0, Nucleated Red Blood Cells % (auto) 0.6H, Immature Platelet Fraction 9.3, Anion Gap 5L, Glomerular Filtration Rate 51.0, Calcium Level 7.8L, Magnesium Level 1.4L, Total Bilirubin 1.2H, Aspartate Amino Transf (AST/SGOT) 41H, Alanine Aminotransferase (ALT/SGPT) 28, Alkaline Phosphatase 151H, Total Protein 5.4L, Albumin 1.8L, Albumin/Globulin Ratio 0.5L CBC/BMP Laboratory Tests 12/23/20 06:05 Microbiology Microbiology 12/20/20 Blood Culture - Preliminary, Resulted No Growth after 48 hours. All Specime... 12/20/20 Blood Culture - Preliminary, Resulted No Growth after 48 hours. All Specime... 12/18/20 Urine Culture - Final, Complete Escherichia Coli 12/18/20 Blood Culture - Final, Complete Staphylococcus Capitis 12/18/20 Blood Culture - Final, Complete Staphylococcus Capitis HEAVEN DIANA DO Dec 23, 2020 15:59
[2020-12-23] MEDS ORDERED: HumaLOG INSULIN (NovoLOG) PER UNIT SC SCH (21:00)
[2020-12-23] MEDS: ATORVASTATIN 10 MG TAB PO SCH (21:58)
[2020-12-23 22:00] VITALS: BP 131/53
[2020-12-23] MEDS ORDERED: DEXTROSE 50% 50 ML SYRINGE IV PRN (22:10)
[2020-12-23] MEDS ORDERED: GLUCAGON INJ 1MG VIAL SC PRN (22:10)
[2020-12-23] MEDS ORDERED: GLUCOSE 4GM CHEW TABLET PO PRN (22:10)
[2020-12-24] MEDS: PIPERACILLIN/TAZOBACTAM SOD 3.375 GM in D5W MINI-BAG PLUS 50 ML IV SCH ×2 (05:23→09:10)
[2020-12-24] MEDS: LEVOTHYROXINE 100MCG TABLET (0.1MG) PO SCH (05:23)
[2020-12-24 06:00] VITALS: BP 122/56
[2020-12-24 06:45] LABS: BASO % 0.6 % (0.0-1.0); EOS # 0.3 10^3/uL (0.0-0.5); EOS % 8.2 % (0.0-3.0); HEMATOCRIT 30.2 % (36.0-47.0); HEMOGLOBIN 9.7 g/dl (12.0-15.5); LYMPH % 29.5 % (24.0-44.0); MEAN CORPUSCULAR HGB CONC 32.1 g/dl (32.0-36.5); MEAN CORPUSCULAR VOLUME 96.5 fl (80.0-96.0); MONO # 0.6 10^3/uL (0.0-0.8); MONO % 16.5 % (2.0-8.0); NEUTROPHILS # 1.6 10^3/uL (1.5-8.5); NEUTROPHILS % 44.9 % (36.0-66.0); RED BLOOD COUNT 3.13 10^6/uL (4.00-5.40); WHITE BLOOD COUNT 3.5 10^3/uL (4.0-10.0)
[2020-12-24 06:56] LABS: PLATELET COUNT, AUTOMATED 42 10^3/uL (150-450)
[2020-12-24 07:10] LABS: ALBUMIN 1.8 GM/DL (3.2-5.2); BILIRUBIN,TOTAL 1.1 MG/DL (0.2-1.0); CALCIUM LEVEL 8.1 MG/DL (8.8-10.2); CREATININE FOR GFR 0.96 MG/DL (0.55-1.30); GLOMERULAR FILTRATION RATE 59.1 (>32); POTASSIUM SERUM 4.3 MEQ/L (3.5-5.1); TOTAL PROTEIN 5.4 GM/DL (6.4-8.2)
[2020-12-24] MEDS: TIOTROPIUM INHALER/CAPSULE (SPIRIVA) INH SCH (07:24)
[2020-12-24] MEDS: HumaLOG INSULIN (NovoLOG) PER UNIT SC SCH ×2 (07:30→12:32)
[2020-12-24 08:06] VITALS: BP 122/56
[2020-12-24] MEDS: SUCRALFATE 1 GM TAB PO SCH (08:06)
[2020-12-24] MEDS: LISINOPRIL *2.5 MG* TAB PO SCH (08:06)
[2020-12-24] MEDS: PANTOPRAZOLE 40MG TAB (PROTONIX) PO SCH (08:07)
[2020-12-24] MEDS: METOPROLOL TART 12.5 MG PER 1/2 TAB PO SCH (08:07)
[2020-12-24] MEDS: rifAXIMin 550 MG TAB (XIFAXAN) PO SCH (08:07)
[2020-12-24] MEDS: FERROUS SULFATE 325MG TAB PO SCH (08:07)
[2020-12-24] MEDS ORDERED: AMOX875T2 PO (11:29)
--- NOTE | 2020-12-24 23:17 | DS.PDOC ---
Discharge Summary General Date of Admission Dec 18, 2020 at 19:01 Date of Discharge Dec 24, 2020 Discharge Summary PROCEDURES PERFORMED DURING STAY: None ADMITTING DIAGNOSES: Plan 1. Metabolic encephalopathy secondary to sepsis/UTI and gram-positive bacteremia 2. E. coli UTI 3. 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 ALTAF with hyperkalemia 5. Liver cirrhosis 6. MACHELLE 7. NIDDM 8. Hypothyroidism 9. Obesity DISCHARGE DIAGNOSES: 1. Metabolic encephalopathy secondary to sepsis/UTI and gram-positive bacteremia 2. E. coli UTI 3. 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 ALTAF with hyperkalemia 5. Liver cirrhosis 6. MACHELLE 7. NIDDM 8. Hypothyroidism 9. Obesity COMPLICATIONS/CHIEF COMPLAINT: Altered Mental Status, Uti. 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 Was found by her daughter this morning unresponsive in her armchair. Patient is obtunded at the time of my examination, and opens her eyes to her name, otherwise unable to participate in exam. On arrival to Er, patient was normotensive, saturating well on RA. She was found to be anemic to Hgb 5.5 with a fecal occult positive stool. Family denied hematemesis and melana. Patient had a brown stool in ER. Further, patient had an elevated Cr. of 1.41 and hyperkalemia of 5.5. Urine was cloudy and UA showed evidence to UTI. Her ammonia was 44. TSH 0.089. Patient will be admitted to hospitalist service for treamtent of metabolic encephalopathy possible secondary to UTI vs hepatic encephalopathy. " HOSPITAL COURSE: During hospitalization, patient was given 2 units of blood and 3 units of platelets. Hemoglobin responded greater than expected, increasing from 5.2-11.4. Platelets did not change, but patient's platelets are close to baseline. Throughout hospitalization, hemoglobin remained stable around ten. Patient did not need any other transfusion. Attending at that time touch base with general surgery. General surgery did not see indication for urgent EGD. Recommended that patient follow-up with Dr. Rico in clinic. Patient's altered mental status was most likely due to her UTI. Urine culture grew pansensitive E. coli. Patient had about 4 days of Zosyn. Patient to be transitioned to three more days of Augmentin for a total of 7 days of antibiotic microbial treatment. Patient renal function improved and returned to baseline with IV fluids. Patient's mentation also improved since admission. The main concern was her blood cultures were positive x2 for staph capitis. TTE was negative for vegetations. Of note, blood cultures were drawn about 1 minute apart and suspected to be drawn from the same site. Repeat blood cultures were negative for 72 hours. Discussed with ID, Dr. Zapata. We both suspect that these are contaminants. We decided to treat the E. coli UTI for 7 days, then repeat blood cultures 1 to 2 weeks afterwards. If his blood cultures were to grow staph capitis, patient will need cardiology and ID consultation. Otherwise, patient felt ready for home. She cleared physical therapy and was discharged home today. DISCHARGE MEDICATIONS: Please see below. ALLERGIES: Please see below. PHYSICAL EXAMINATION ON DISCHARGE: VITAL SIGNS: Please see below. GENERAL: Comfortable, in no apparent distress. HEENT: EOMI, sclera clear. NECK: Supple. RESPIRATORY: Lungs clear to auscultation bilaterally, no rales, wheeze or rhonchi. CARDIOVASCULAR: Regular rate and rhythm. ABDOMEN: Soft, nontender, no guarding or rebound tenderness. Normal bowel sounds. MUSCLE SKELETAL: Muscle strength equal in all extremities. NEUROLOGICAL: CN 3-12 grossly intact, no focal deficits noted. PSYCHOLOGICAL: Normal mood and affect LABORATORY DATA: Please see below. IMAGING: Please see chart for imaging PROGNOSIS: Good ACTIVITY: As tolerated. DIET: 2 g sodium diet DISCHARGE PLAN: Home with home services DISPOSITION: Home Health Service. DISCHARGE INSTRUCTIONS: 1. Follow-up with your PCP within 1 week 2. Follow-up with Dr. Rico in 1 to 2 weeks 3. Discussed with your PCP about repeating blood cultures in 1 to 2 weeks ITEMS TO FOLLOWUP ON ON OUTPATIENT: 1. H&H DISCHARGE CONDITION: Stable Total time spent on discharge planning, discharge summary, and medication reconciliation: 45 minutes Vital Signs/I&Os Vital Signs Date Time Temp Pulse Resp B/P (MAP) Pulse Ox O2 Delivery O2 Flow Rate FiO2 12/24/20 09:00 1.0 12/24/20 08:06 122/56 12/24/20 06:00 97.8 64 18 95 Nasal Cannula 12/20/20 01:30 96 I&O- Last 24 Hours up to 6 AM 12/24/20 06:00 Intake Total 940 ml Balance 940 ml Laboratory Data Labs 24H Laboratory Tests 2 12/24/20 06:21: Immature Granulocyte % (Auto) 0.3, Neutrophils (%) (Auto) 44.9, Lymphocytes (%) (Auto) 29.5, Monocytes (%) (Auto) 16.5H, Eosinophils (%) (Auto) 8.2H, Basophils (%) (Auto) 0.6, Neutrophils # (Auto) 1.6, Lymphocytes # (Auto) 1.0L, Monocytes # (Auto) 0.6, Eosinophils # (Auto) 0.3, Basophils # (Auto) 0.0, Nucleated Red Blood Cells % (auto) 0.0, Immature Platelet Fraction 10.1H, Anion Gap 4L, Glomerular Filtration Rate 59.1, Calcium Level 8.1L, Magnesium Level 2.0, Total Bilirubin 1.1H, Aspartate Amino Transf (AST/SGOT) 41H, Alanine Aminotransferase (ALT/SGPT) 28, Alkaline Phosphatase 158H, Total Protein 5.4L, Albumin 1.8L, Albumin/Globulin Ratio 0.5L 12/24/20 11:36: Bedside Glucose (Misc Panel) 131H CBC/BMP Laboratory Tests 12/24/20 06:21 FSBS Laboratory Tests Test 12/24/20 11:36 Range/Units Bedside Glucose (Misc Panel) 131 83-110 MG/DL Microbiology Microbiology 12/20/20 Blood Culture - Preliminary, Resulted No Growth after 72 hours. All specime... 12/20/20 Blood Culture - Preliminary, Resulted No Growth after 72 hours. All specime... 12/18/20 Urine Culture - Final, Complete Escherichia Coli 12/18/20 Blood Culture - Final, Complete Staphylococcus Capitis 12/18/20 Blood Culture - Final, Complete Staphylococcus Capitis Discharge Medications Scheduled Amitriptyline HCl (Amitriptyline HCl) 25 Mg Tablet, 25 MG PO QHS, (Reported) Amoxicillin/Potassium Clav (Amox-Clav 875-125 mg Tablet) 1 Each Tablet, 875 MG PO BID Atorvastatin Calcium (Atorvastatin Calcium) 10 Mg Tablet, 10 MG PO QHS, (Report ed) Ferrous Sulfate (Ferrous Sulfate) 325 Mg Tablet, 325 MG PO DAILY, (Reported) Levothyroxine Sodium (Synthroid) 100 Mcg Tablet, 100 MCG PO DAILY, (Reported) Lisinopril (Lisinopril) 2.5 Mg Tablet, 2.5 MG PO DAILY, (Reported) Magnesium Oxide (Magnesium) 500 Mg Capsule, 500 MG PO BID, (Reported) Metoprolol Tartrate (Metoprolol Tartrate) 25 Mg Tablet, 12.5 MG PO BID, (Reported) Mirabegron (Myrbetriq) 25 Mg Tab.er.24h, 25 MG PO QHS, (Reported) Pantoprazole Sodium (Pantoprazole Sodium) 40 Mg Tablet.dr, 40 MG PO BID, (Reported) Rifaximin (Xifaxan) 550 Mg Tablet, 550 MG PO BID, (Reported) Sucralfate (Sucralfate) 1 Gm Tablet, 1 GM PO BID, (Reported) Umeclidinium [place] (Incruse Ellipta) 62.5 Mcg Blst.w.dev, 1 PUFF INH DAILY, (Reported) Scheduled PRN Albuterol Sulf (Albuterol Sulfate) 2.5 Mg/3 Ml Vial.neb, 2.5 MG INH QID PRN for SHORTNESS OF BREATH, (Reported) Allergies Coded Allergies: bacitracin (Verified Allergy, Severe, itching, swelling, 06/09/18) latex (Verified Allergy, Severe, itching, swelling, 06/09/18) HEAVEN DIANA DO Dec 24, 2020 23:17
== END 2020-12-24 13:30 | disposition home health service (06) | DRG 871 ==
LOC: M ED 11:15 → EDBD 11:15 → M ED INP 19:01 → ENRESERVDT 20:06 → ENRESERVTM 20:06 → M PCU 21:17 → M MSPAV 12-21 20:20
PROVIDERS: ADMIT Family Medicine; ATTEND Internal Medicine
PROC: 30233N1 Transfusion of Nonautologous Red Blood Cells into Peripheral Vein, Percutaneous Approach (ICD-10-PCS; principal; 2020-12-18)
DX: A41.1 Sepsis due to other specified staphylococcus (principal); G93.41 Metabolic encephalopathy; N39.0 Urinary tract infection, site not specified; D62 Acute posthemorrhagic anemia; N17.9 Acute kidney failure, unspecified; I50.32 Chronic diastolic (congestive) heart failure; Z68.41 Body mass index [BMI] 40.0-44.9, adult; K31.819 Angiodysplasia of stomach and duodenum without bleeding; D69.6 Thrombocytopenia, unspecified; E87.6 Hypokalemia; K74.60 Unspecified cirrhosis of liver; J45.909 Unspecified asthma, uncomplicated; J44.9 Chronic obstructive pulmonary disease, unspecified; G47.33 Obstructive sleep apnea (adult) (pediatric); I11.0 Hypertensive heart disease with heart failure; E11.9 Type 2 diabetes mellitus without complications; E03.9 Hypothyroidism, unspecified; I27.20 Pulmonary hypertension, unspecified; B96.20 Unspecified Escherichia coli [E. coli] as the cause of diseases classified elsewhere; I35.0 Nonrheumatic aortic (valve) stenosis; E66.9 Obesity, unspecified; Z98.41 Cataract extraction status, right eye; Z98.42 Cataract extraction status, left eye; Z90.49 Acquired absence of other specified parts of digestive tract; Z86.010 Personal history of colon polyps; Z87.891 Personal history of nicotine dependence; Z20.822 Contact with and (suspected) exposure to COVID-19; Z79.899 Other long term (current) drug therapy; Z88.1 Allergy status to other antibiotic agents; Z91.040 Latex allergy status

== ENCOUNTER → 2020-12-31 | Outpatient (REF) | payer MEDICARE ==
[~2020-12-31] MED LIST changes: +MAGN1CAP PO; +SUCR1TA PO
== END ==
LOC: M LAB REF 14:56
PROVIDERS: ATTEND Physician Assistant Medical
DX: G93.41 Metabolic encephalopathy (principal); I35.0 Nonrheumatic aortic (valve) stenosis

== ENCOUNTER 2021-04-13 13:46 | Inpatient (IN) | payer MEDICARE ==
[~2021-04-13] VITALS: Ht 157.5 cm; Wt 107.0 kg
[~2021-04-13 13:46] MED LIST changes: -OMEP-221 PO; +OMEP40CA5 PO
[2021-04-13 14:36] LABS: BASO % 0.2 % (0.0-1.0); EOS # 0.3 10^3/uL (0.0-0.5); EOS % 6.1 % (0.0-3.0); HEMATOCRIT 29.9 % (36.0-47.0); HEMOGLOBIN 9.1 g/dl (12.0-15.5); LYMPH # 1.2 10^3/uL (1.5-5.0); MEAN CORPUSCULAR HEMOGLOBIN 31.6 pg (27.0-33.0); MEAN CORPUSCULAR HGB CONC 30.4 g/dl (32.0-36.5); MEAN CORPUSCULAR VOLUME 103.8 fl (80.0-96.0); MONO # 0.8 10^3/uL (0.0-0.8); MONO % 17.7 % (2.0-8.0); NEUTROPHILS % 46.8 % (36.0-66.0); RED BLOOD COUNT 2.88 10^6/uL (4.00-5.40); WHITE BLOOD COUNT 4.2 10^3/uL (4.0-10.0)
[2021-04-13 14:37] LABS: PLATELET COUNT, AUTOMATED 68 10^3/uL (150-450)
[2021-04-13 14:51] LABS: INR 1.4; PROTHROMBIN TIME 17.6 SECONDS (12.7-14.5)
[2021-04-13 14:52] LABS: PARTIAL THROMBOPLASTIN TIME 42.9 SECONDS (25.9-37.0)
[2021-04-13 15:06] LABS: ALBUMIN 2.1 GM/DL (3.2-5.2); BILIRUBIN,DIRECT 0.8 MG/DL (0.0-0.2); BILIRUBIN,TOTAL 1.7 MG/DL (0.2-1.0); CALCIUM LEVEL 7.8 MG/DL (8.8-10.2); CREATININE FOR GFR 1.36 MG/DL (0.55-1.30); GLOMERULAR FILTRATION RATE 39.4 (>32); POTASSIUM SERUM 3.7 MEQ/L (3.5-5.1); THYROID STIMULATING HORMONE 0.621 uIU/ML (0.358-3.740); THYROXINE (T4) 11.1 UG/DL (4.5-12.0); TOTAL PROTEIN 6.6 GM/DL (6.4-8.2)
[2021-04-13 15:09] LABS: RSV AMPLIFICATION NEGATIVE (NEGATIVE)
[2021-04-13] MEDS ORDERED: FUROSEMIDE 20MG/2ML VIAL (J1940) IV ONE (16:20)
[2021-04-13] MEDS ORDERED: MOM 30ML SUSPENSION UDC PO PRN (17:05)
[2021-04-13] MEDS ORDERED: MAALOX 30 ML SUSP *UDC PO PRN (17:05)
[2021-04-13] MEDS ORDERED: HOME MED LIST COMPLETE! XX SCH (17:20)
[2021-04-13] MEDS ORDERED: GLUCAGON INJ 1MG VIAL SC PRN (18:15)
[2021-04-13] MEDS ORDERED: GLUCOSE 4GM CHEW TABLET PO PRN (18:15)
[2021-04-13] MEDS ORDERED: DEXTROSE 50% 50 ML SYRINGE IV PRN (18:15)
[2021-04-13] MEDS ORDERED: ALBUTEROL SULFATE 2.5 MG/0.5 ML INH NEB SOLN INH PRN (18:30)
[2021-04-13] MEDS: SUCRALFATE 1 GM TAB PO SCH (20:17)
[2021-04-13 20:36] VITALS: BP 106/60; O2SAT 96
[2021-04-13] MEDS: SYMBICORT 80/4.5MCG INHALER 6GM INH SCH (20:48)
[2021-04-13] MEDS: HumaLOG INSULIN (NovoLOG) PER UNIT SC SCH (21:00)
[2021-04-13 22:00] VITALS: BP 135/50
[2021-04-13] MEDS: rifAXIMin 550 MG TAB (XIFAXAN) PO SCH (22:00)
[2021-04-13] MEDS: PANTOPRAZOLE 40MG TAB (PROTONIX) PO SCH (22:00)
[2021-04-13] MEDS: AMITRIPTYLINE 25MG TABLET PO SCH (22:01)
[2021-04-13] MEDS: ATORVASTATIN 10 MG TAB PO SCH (22:02)
[2021-04-13] MEDS: METOPROLOL TART 12.5 MG PER 1/2 TAB PO SCH (22:54)
[2021-04-14] MEDS: FUROSEMIDE 40MG/4ML VIAL (J1940) IV SCH ×3 (01:28→17:10)
[2021-04-14] MEDS: LEVOTHYROXINE 100MCG TABLET (0.1MG) PO SCH (05:17)
[2021-04-14 06:00] VITALS: BP 108/55
[2021-04-14 06:27] LABS: BASO % 0.2 % (0.0-1.0); EOS # 0.2 10^3/uL (0.0-0.5); HEMATOCRIT 27.7 % (36.0-47.0); HEMOGLOBIN 8.6 g/dl (12.0-15.5); LYMPH # 0.9 10^3/uL (1.5-5.0); LYMPH % 20.3 % (24.0-44.0); MEAN CORPUSCULAR HEMOGLOBIN 31.4 pg (27.0-33.0); MEAN CORPUSCULAR VOLUME 101.1 fl (80.0-96.0); MONO # 0.7 10^3/uL (0.0-0.8); MONO % 16.3 % (2.0-8.0); NEUTROPHILS # 2.5 10^3/uL (1.5-8.5); RED BLOOD COUNT 2.74 10^6/uL (4.00-5.40); WHITE BLOOD COUNT 4.3 10^3/uL (4.0-10.0)
[2021-04-14 06:28] LABS: PLATELET COUNT, AUTOMATED 59 10^3/uL (150-450)
[2021-04-14 06:59] LABS: CALCIUM LEVEL 8.1 MG/DL (8.8-10.2); CHOLESTEROL RISK RATIO 2.105 (<5); CREATININE FOR GFR 1.1 MG/DL (0.55-1.30); GLOMERULAR FILTRATION RATE 50.4 (>32); MAGNESIUM LEVEL 1.6 MG/DL (1.8-2.4); POTASSIUM SERUM 3.7 MEQ/L (3.5-5.1); TOTAL PROTEIN 6.4 GM/DL (6.4-8.2)
[2021-04-14] MEDS: HumaLOG INSULIN (NovoLOG) PER UNIT SC SCH ×4 (07:30→21:00)
[2021-04-14] MEDS: TIOTROPIUM INHALER/CAPSULE (SPIRIVA) INH SCH (07:54)
[2021-04-14] MEDS: SYMBICORT 80/4.5MCG INHALER 6GM INH SCH ×2 (07:54→20:30)
[2021-04-14] MEDS: cefTRIAXone SOD 1 GM in D5W MINI-BAG PLUS 50 ML IV SCH (08:43)
[2021-04-14] MEDS: METOPROLOL TART 12.5 MG PER 1/2 TAB PO SCH ×2 (09:00→20:17)
[2021-04-14] MEDS: FERROUS SULFATE 325MG TAB PO SCH (09:08)
[2021-04-14] MEDS: rifAXIMin 550 MG TAB (XIFAXAN) PO SCH ×2 (09:09→20:15)
[2021-04-14] MEDS: SUCRALFATE 1 GM TAB PO SCH ×2 (09:09→17:10)
[2021-04-14] MEDS: PANTOPRAZOLE 40MG TAB (PROTONIX) PO SCH ×2 (09:09→20:15)
[2021-04-14] MEDS: LACTULOSE 20 GM/30 ML SYRUP UD PO SCH ×3 (11:11→19:58)
[2021-04-14] MEDS: NYSTATIN OINTMENT 15 GM TOP SCH ×2 (12:38→20:17)
[2021-04-14 14:00] VITALS: BP 124/55
[2021-04-14] MEDS: ATORVASTATIN 10 MG TAB PO SCH (20:15)
[2021-04-14] MEDS: AMITRIPTYLINE 25MG TABLET PO SCH (20:16)
[2021-04-14] MEDS: ACETAMINOPHEN TAB 650MG DOSE (2X325MG) PO PRN (20:17)
[2021-04-14 22:00] VITALS: BP 132/55
[2021-04-15] MEDS: FUROSEMIDE 40MG/4ML VIAL (J1940) IV SCH ×2 (00:52→09:02)
[2021-04-15 05:40] VITALS: BP 117/49
[2021-04-15 06:15] LABS: BASO % 0.5 % (0.0-1.0); EOS # 0.2 10^3/uL (0.0-0.5); EOS % 5.3 % (0.0-3.0); HEMATOCRIT 26.4 % (36.0-47.0); HEMOGLOBIN 8.2 g/dl (12.0-15.5); LYMPH % 25.3 % (24.0-44.0); MEAN CORPUSCULAR HEMOGLOBIN 31.5 pg (27.0-33.0); MEAN CORPUSCULAR HGB CONC 31.1 g/dl (32.0-36.5); MEAN CORPUSCULAR VOLUME 101.5 fl (80.0-96.0); MONO # 0.6 10^3/uL (0.0-0.8); MONO % 16.5 % (2.0-8.0); NEUTROPHILS % 52.1 % (36.0-66.0); WHITE BLOOD COUNT 3.8 10^3/uL (4.0-10.0)
[2021-04-15 06:16] LABS: PLATELET COUNT, AUTOMATED 49 10^3/uL (150-450)
[2021-04-15] MEDS: LEVOTHYROXINE 100MCG TABLET (0.1MG) PO SCH (06:30)
[2021-04-15 06:55] LABS: ALBUMIN 1.9 GM/DL (3.2-5.2); BILIRUBIN,TOTAL 1.7 MG/DL (0.2-1.0); CREATININE FOR GFR 1.34 MG/DL (0.55-1.30); GLOMERULAR FILTRATION RATE 40.1 (>32); MAGNESIUM LEVEL 1.5 MG/DL (1.8-2.4); POTASSIUM SERUM 3.5 MEQ/L (3.5-5.1); TOTAL PROTEIN 5.9 GM/DL (6.4-8.2)
[2021-04-15] MEDS: HumaLOG INSULIN (NovoLOG) PER UNIT SC SCH ×4 (07:30→22:35)
[2021-04-15] MEDS: TIOTROPIUM INHALER/CAPSULE (SPIRIVA) INH SCH (07:45)
[2021-04-15] MEDS: SYMBICORT 80/4.5MCG INHALER 6GM INH SCH ×2 (07:45→19:37)
[2021-04-15 08:28] LABS: INR 1.78; PROTHROMBIN TIME 21.1 SECONDS (12.7-14.5)
[2021-04-15] MEDS: METOPROLOL TART 12.5 MG PER 1/2 TAB PO SCH ×2 (09:00→21:11)
[2021-04-15] MEDS: FERROUS SULFATE 325MG TAB PO SCH (09:01)
[2021-04-15] MEDS: rifAXIMin 550 MG TAB (XIFAXAN) PO SCH ×2 (09:01→21:11)
[2021-04-15] MEDS: cefTRIAXone SOD 1 GM in D5W MINI-BAG PLUS 50 ML IV SCH (09:01)
[2021-04-15] MEDS: SUCRALFATE 1 GM TAB PO SCH ×2 (09:01→17:00)
[2021-04-15] MEDS: LACTULOSE 20 GM/30 ML SYRUP UD PO SCH ×3 (09:01→21:10)
[2021-04-15] MEDS: PANTOPRAZOLE 40MG TAB (PROTONIX) PO SCH ×2 (09:01→21:11)
[2021-04-15] MEDS: NYSTATIN OINTMENT 15 GM TOP SCH ×2 (09:02→21:10)
[2021-04-15 21:08] VITALS: BP 146/66
[2021-04-15] MEDS: ATORVASTATIN 10 MG TAB PO SCH (21:11)
[2021-04-15] MEDS: AMITRIPTYLINE 25MG TABLET PO SCH (21:11)
[2021-04-15] MEDS: ACETAMINOPHEN TAB 650MG DOSE (2X325MG) PO PRN (21:11)
[2021-04-16 05:24] VITALS: BP 108/55
[2021-04-16] MEDS: LEVOTHYROXINE 100MCG TABLET (0.1MG) PO SCH (06:02)
[2021-04-16] MEDS: HumaLOG INSULIN (NovoLOG) PER UNIT SC SCH ×4 (07:30→21:00)
[2021-04-16] MEDS: TIOTROPIUM INHALER/CAPSULE (SPIRIVA) INH SCH (08:12)
[2021-04-16] MEDS: SYMBICORT 80/4.5MCG INHALER 6GM INH SCH ×2 (08:13→20:00)
[2021-04-16] MEDS: rifAXIMin 550 MG TAB (XIFAXAN) PO SCH ×2 (08:57→20:33)
[2021-04-16] MEDS: CEFDINIR 300 MG CAP (OMNICEF) PO SCH ×2 (08:57→20:33)
[2021-04-16] MEDS: PANTOPRAZOLE 40MG TAB (PROTONIX) PO SCH ×2 (08:57→20:33)
[2021-04-16] MEDS: FERROUS SULFATE 325MG TAB PO SCH (08:57)
[2021-04-16] MEDS: SUCRALFATE 1 GM TAB PO SCH ×2 (08:57→17:32)
[2021-04-16] MEDS: LACTULOSE 20 GM/30 ML SYRUP UD PO SCH ×3 (08:57→20:32)
[2021-04-16] MEDS: FUROSEMIDE 20 MG TAB PO SCH (08:58)
[2021-04-16] MEDS: METOPROLOL TART 12.5 MG PER 1/2 TAB PO SCH ×2 (09:00→21:00)
[2021-04-16] MEDS: NYSTATIN OINTMENT 15 GM TOP SCH ×2 (09:02→20:33)
[2021-04-16 14:11] LABS: BASO % 0.2 % (0.0-1.0); EOS # 0.3 10^3/uL (0.0-0.5); EOS % 5.9 % (0.0-3.0); HEMATOCRIT 27.7 % (36.0-47.0); HEMOGLOBIN 8.6 g/dl (12.0-15.5); LYMPH % 20.1 % (24.0-44.0); MONO # 0.7 10^3/uL (0.0-0.8); MONO % 14.4 % (2.0-8.0); NEUTROPHILS # 2.8 10^3/uL (1.5-8.5); PLATELET COUNT, AUTOMATED 51 10^3/uL (150-450); RED BLOOD COUNT 2.69 10^6/uL (4.00-5.40); WHITE BLOOD COUNT 4.7 10^3/uL (4.0-10.0)
[2021-04-16 14:33] LABS: CALCIUM LEVEL 8.3 MG/DL (8.8-10.2); CREATININE FOR GFR 1.11 MG/DL (0.55-1.30); GLOMERULAR FILTRATION RATE 49.9 (>32); MAGNESIUM LEVEL 1.4 MG/DL (1.8-2.4); POTASSIUM SERUM 3.6 MEQ/L (3.5-5.1)
[2021-04-16] MEDS: AMITRIPTYLINE 25MG TABLET PO SCH (20:33)
[2021-04-16] MEDS: ATORVASTATIN 10 MG TAB PO SCH (20:33)
[2021-04-16 21:00] VITALS: BP 112/75
[2021-04-17] MEDS: LEVOTHYROXINE 100MCG TABLET (0.1MG) PO SCH (05:56)
[2021-04-17 06:00] VITALS: BP 105/49
[2021-04-17 07:15] LABS: BASO % 0.2 % (0.0-1.0); EOS # 0.3 10^3/uL (0.0-0.5); EOS % 6.7 % (0.0-3.0); HEMATOCRIT 26.1 % (36.0-47.0); LYMPH # 0.9 10^3/uL (1.5-5.0); MEAN CORPUSCULAR HEMOGLOBIN 31.3 pg (27.0-33.0); MEAN CORPUSCULAR HGB CONC 30.7 g/dl (32.0-36.5); MONO # 0.6 10^3/uL (0.0-0.8); MONO % 15.6 % (2.0-8.0); NEUTROPHILS # 2.3 10^3/uL (1.5-8.5); NEUTROPHILS % 56.3 % (36.0-66.0); RED BLOOD COUNT 2.56 10^6/uL (4.00-5.40)
[2021-04-17 07:16] LABS: PLATELET COUNT, AUTOMATED 45 10^3/uL (150-450)
[2021-04-17 07:27] LABS: CALCIUM LEVEL 7.6 MG/DL (8.8-10.2); CREATININE FOR GFR 0.96 MG/DL (0.55-1.30); GLOMERULAR FILTRATION RATE 58.9 (>32); MAGNESIUM LEVEL 1.3 MG/DL (1.8-2.4); POTASSIUM SERUM 3.5 MEQ/L (3.5-5.1)
[2021-04-17] MEDS: SUCRALFATE 1 GM TAB PO SCH (08:03)
[2021-04-17] MEDS: HumaLOG INSULIN (NovoLOG) PER UNIT SC SCH ×2 (08:03→12:04)
[2021-04-17] MEDS: LACTULOSE 20 GM/30 ML SYRUP UD PO SCH ×2 (08:03→14:59)
[2021-04-17] MEDS: rifAXIMin 550 MG TAB (XIFAXAN) PO SCH (08:03)
[2021-04-17] MEDS: PANTOPRAZOLE 40MG TAB (PROTONIX) PO SCH (08:03)
[2021-04-17] MEDS: FUROSEMIDE 20 MG TAB PO SCH (08:03)
[2021-04-17] MEDS: CEFDINIR 300 MG CAP (OMNICEF) PO SCH (08:03)
[2021-04-17 08:07] VITALS: BP 105/50
[2021-04-17] MEDS: METOPROLOL TART 12.5 MG PER 1/2 TAB PO SCH (08:07)
[2021-04-17] MEDS: SYMBICORT 80/4.5MCG INHALER 6GM INH SCH (08:17)
[2021-04-17] MEDS: TIOTROPIUM INHALER/CAPSULE (SPIRIVA) INH SCH (08:17)
[2021-04-17] MEDS: FERROUS SULFATE 325MG TAB PO SCH (08:17)
[2021-04-17] MEDS: NYSTATIN OINTMENT 15 GM TOP SCH (08:18)
[2021-04-17] MEDS ORDERED: CEFD300CAP PO (11:50)
[2021-04-17] MEDS ORDERED: LACT20EL PO (11:50)
[2021-04-17] MEDS ORDERED: FURO20TA2 PO (11:50)
[2021-04-17] MEDS: MAG SULF 1GM/100ML (MAG RUN) 1 GM in IV 1 EA IV SCH ×3 (12:04→14:59)
[2021-04-17] MEDS ORDERED: METO25TA PO (13:37)
== END 2021-04-17 17:44 | disposition home health service (06) | DRG 291 ==
LOC: EDBD 13:46 → M ED 13:46 → M ED INP 17:02 → ENRESERV 19:04 → M MSPAV 21:07
PROVIDERS: ADMIT Family Medicine; ATTEND Internal Medicine
DX: I11.0 Hypertensive heart disease with heart failure (principal); I50.33 Acute on chronic diastolic (congestive) heart failure; N17.9 Acute kidney failure, unspecified; N39.0 Urinary tract infection, site not specified; Z68.41 Body mass index [BMI] 40.0-44.9, adult; D50.9 Iron deficiency anemia, unspecified; J44.9 Chronic obstructive pulmonary disease, unspecified; G47.33 Obstructive sleep apnea (adult) (pediatric); I27.20 Pulmonary hypertension, unspecified; E78.5 Hyperlipidemia, unspecified; E03.9 Hypothyroidism, unspecified; E11.9 Type 2 diabetes mellitus without complications; K74.60 Unspecified cirrhosis of liver; K31.819 Angiodysplasia of stomach and duodenum without bleeding; Z96.652 Presence of left artificial knee joint; E66.9 Obesity, unspecified; Z98.41 Cataract extraction status, right eye; Z98.42 Cataract extraction status, left eye; Z90.79 Acquired absence of other genital organ(s); Z90.49 Acquired absence of other specified parts of digestive tract; D69.6 Thrombocytopenia, unspecified; Z79.899 Other long term (current) drug therapy; Z88.8 Allergy status to other drugs, medicaments and biological substances; Z91.040 Latex allergy status; Z20.822 Contact with and (suspected) exposure to COVID-19; R29.6 Repeated falls; S30.0XXA Contusion of lower back and pelvis, initial encounter; W01.0XXA Fall on same level from slipping, tripping and stumbling without subsequent striking against object, initial encounter; Y92.009 Unspecified place in unspecified non-institutional (private) residence as the place of occurrence of the external cause; L30.4 Erythema intertrigo; B96.1 Klebsiella pneumoniae [K. pneumoniae] as the cause of diseases classified elsewhere; Z87.891 Personal history of nicotine dependence; K72.90 Hepatic failure, unspecified without coma

== ENCOUNTER 2021-04-26 14:18 | Inpatient (IN) | payer MEDICARE ==
[~2021-04-26] VITALS: Ht 157.5 cm; Wt 99.6 kg
[~2021-04-26 14:18] MED LIST changes: +CEFD300CAP PO; +FURO20TA2 PO; +LACT20EL PO; +METO25TA PO
[2021-04-26 15:12] LABS: VENOUS BASE EXCESS 3.9 (-2.0-2.0); VENOUS HCO3 25.6 MEQ/L (23.0-27.0); VENOUS O2 SATURATION 99.5 % (60.0-80.0); VENOUS PARTIAL PRESSURE CO2 28.4 mmHg (38.0-50.0); VENOUS PARTIAL PRESSURE O2 172.5 mmHg (30.0-50.0); VENOUS PH 7.573 UNITS (7.330-7.430); VENOUS TOTAL CO2 26.5 MEQ/L (24.0-28.0)
[2021-04-26 15:32] LABS: BASO % 0.2 % (0.0-1.0); EOS # 0.3 10^3/uL (0.0-0.5); EOS % 5.8 % (0.0-3.0); HEMATOCRIT 26.9 % (36.0-47.0); HEMOGLOBIN 8.1 g/dl (12.0-15.5); LYMPH % 23.5 % (24.0-44.0); MEAN CORPUSCULAR HEMOGLOBIN 31.6 pg (27.0-33.0); MEAN CORPUSCULAR HGB CONC 30.1 g/dl (32.0-36.5); MEAN CORPUSCULAR VOLUME 105.1 fl (80.0-96.0); MONO # 0.5 10^3/uL (0.0-0.8); MONO % 11.4 % (2.0-8.0); NEUTROPHILS # 2.5 10^3/uL (1.5-8.5); NEUTROPHILS % 58.4 % (36.0-66.0); RED BLOOD COUNT 2.56 10^6/uL (4.00-5.40); WHITE BLOOD COUNT 4.3 10^3/uL (4.0-10.0)
[2021-04-26 15:41] LABS: PLATELET COUNT, AUTOMATED 81 10^3/uL (150-450)
[2021-04-26 16:00] LABS: ALBUMIN 2.1 GM/DL (3.2-5.2); BILIRUBIN,DIRECT 0.7 MG/DL (0.0-0.2); BILIRUBIN,TOTAL 1.9 MG/DL (0.2-1.0); CALCIUM LEVEL 8.3 MG/DL (8.8-10.2); CREATININE FOR GFR 1.17 MG/DL (0.55-1.30); GLOMERULAR FILTRATION RATE 46.9 (>32); POTASSIUM SERUM 4.3 MEQ/L (3.5-5.1); THYROID STIMULATING HORMONE 3.83 uIU/ML (0.358-3.740); TOTAL PROTEIN 6.7 GM/DL (6.4-8.2)
[2021-04-26] MEDS ORDERED: LACTULOSE 20 GM/30 ML SYRUP UD PO ONE (17:35)
[2021-04-26] MEDS ORDERED: RA M500C PO (17:53)
[2021-04-26] MEDS ORDERED: HOME MED LIST COMPLETE! XX SCH (17:55)
[2021-04-26] MEDS ORDERED: PHYTONADIONE INJection 5 MG in NS 50 ML IV ONE (18:55)
[2021-04-26] MEDS ORDERED: LACTULOSE 20 GM/30 ML SYRUP UD PR ONE (19:00)
[2021-04-26] MEDS ORDERED: ALBUTEROL SULFATE 2.5 MG/0.5 ML INH NEB SOLN NEB PRN (19:20)
[2021-04-26] MEDS ORDERED: PANTOPRAZOLE 40MG TAB (PROTONIX) PO SCH (21:00)
[2021-04-26] MEDS: METOPROLOL TART 12.5 MG PER 1/2 TAB PO SCH (21:00)
[2021-04-26 22:00] VITALS: BP 116/48
[2021-04-26 23:00] VITALS: BP 116/51
[2021-04-26 23:06] LABS: HEMATOCRIT 23.6 % (36.0-47.0); HEMOGLOBIN 7.2 g/dl (12.0-15.5)
[2021-04-26] MEDS: rifAXIMin 550 MG TAB (XIFAXAN) PO SCH (23:07)
[2021-04-26] MEDS: PANTOPRAZOLE 40MG VIAL (C9113 PER 1) IV SCH (23:07)
[2021-04-26] MEDS: SUCRALFATE 1 GM TAB PO SCH (23:07)
[2021-04-26] MEDS: LACTULOSE 20 GM/30 ML SYRUP UD PO SCH (23:07)
[2021-04-26] MEDS: cefTRIAXone SOD 1 GM in D5W MINI-BAG PLUS 50 ML IV SCH (23:07)
[2021-04-27] VITALS (17 sets, daily range): BP systolic 112–143; BP diastolic 49–61; O2SAT 96–97
[2021-04-27] MEDS: LEVOTHYROXINE 100MCG TABLET (0.1MG) PO SCH (05:30)
[2021-04-27 06:25] LABS: BASO % 0.2 % (0.0-1.0); EOS # 0.2 10^3/uL (0.0-0.5); EOS % 4.1 % (0.0-3.0); HEMATOCRIT 23.4 % (36.0-47.0); HEMOGLOBIN 7.2 g/dl (12.0-15.5); LYMPH # 1.4 10^3/uL (1.5-5.0); LYMPH % 26.2 % (24.0-44.0); MEAN CORPUSCULAR HEMOGLOBIN 32.3 pg (27.0-33.0); MEAN CORPUSCULAR HGB CONC 30.8 g/dl (32.0-36.5); MEAN CORPUSCULAR VOLUME 104.9 fl (80.0-96.0); MONO # 0.7 10^3/uL (0.0-0.8); MONO % 13.2 % (2.0-8.0); NEUTROPHILS # 2.9 10^3/uL (1.5-8.5); NEUTROPHILS % 55.9 % (36.0-66.0); RED BLOOD COUNT 2.23 10^6/uL (4.00-5.40); WHITE BLOOD COUNT 5.2 10^3/uL (4.0-10.0)
[2021-04-27 06:27] LABS: PLATELET COUNT, AUTOMATED 70 10^3/uL (150-450)
[2021-04-27 06:40] LABS: INR 1.4; PROTHROMBIN TIME 17.6 SECONDS (12.7-14.5)
[2021-04-27 07:00] LABS: CALCIUM LEVEL 8.4 MG/DL (8.8-10.2); CREATININE FOR GFR 1.03 MG/DL (0.55-1.30); GLOMERULAR FILTRATION RATE 54.3 (>32); PERCENT SATURATION 32.1 % (13.2-45.0); POTASSIUM SERUM 4.1 MEQ/L (3.5-5.1)
[2021-04-27] MEDS ORDERED: LACTULOSE 20 GM/30 ML SYRUP UD PR ONE ×2 (08:00→16:00)
[2021-04-27] MEDS: TIOTROPIUM INHALER/CAPSULE (SPIRIVA) INH SCH (08:27)
[2021-04-27 10:03] LABS: HEMATOCRIT 24.3 % (36.0-47.0); HEMOGLOBIN 7.4 g/dl (12.0-15.5)
[2021-04-27] MEDS ORDERED: FUROSEMIDE 40MG/4ML VIAL (J1940) IV ONE (10:45)
[2021-04-27] MEDS: METOPROLOL TART 12.5 MG PER 1/2 TAB PO SCH ×2 (10:48→21:06)
[2021-04-27] MEDS: rifAXIMin 550 MG TAB (XIFAXAN) PO SCH ×2 (10:48→21:06)
[2021-04-27] MEDS: PANTOPRAZOLE 40MG VIAL (C9113 PER 1) IV SCH ×2 (10:48→21:57)
[2021-04-27] MEDS: SUCRALFATE 1 GM TAB PO SCH (10:48)
[2021-04-27] MEDS: LACTULOSE 20 GM/30 ML SYRUP UD PO SCH (10:49)
[2021-04-27] MEDS ORDERED: GOLYTELY SOLN 4000 ML BTL PO ONE (14:00)
[2021-04-27] MEDS: SUCRALFATE SUSP 1GM/10ML UD PO SCH (18:06)
[2021-04-27] MEDS: cefTRIAXone SOD 1 GM in D5W MINI-BAG PLUS 50 ML IV SCH (21:57)
[2021-04-28] MEDS: SUCRALFATE SUSP 1GM/10ML UD PO SCH ×4 (00:23→18:42)
[2021-04-28 00:33] VITALS: BP 119/52
[2021-04-28 00:35] LABS: HEMATOCRIT 28.8 % (36.0-47.0); HEMOGLOBIN 9.3 g/dl (12.0-15.5)
[2021-04-28] MEDS: LEVOTHYROXINE 100MCG TABLET (0.1MG) PO SCH (05:23)
[2021-04-28 05:27] VITALS: BP 117/51
[2021-04-28 06:09] LABS: BASO % 0.4 % (0.0-1.0); EOS # 0.4 10^3/uL (0.0-0.5); EOS % 6.8 % (0.0-3.0); HEMATOCRIT 29.5 % (36.0-47.0); HEMOGLOBIN 9.5 g/dl (12.0-15.5); LYMPH # 1.3 10^3/uL (1.5-5.0); MEAN CORPUSCULAR HGB CONC 32.2 g/dl (32.0-36.5); MEAN CORPUSCULAR VOLUME 99.3 fl (80.0-96.0); MONO # 0.7 10^3/uL (0.0-0.8); MONO % 13.1 % (2.0-8.0); NEUTROPHILS # 2.7 10^3/uL (1.5-8.5); NEUTROPHILS % 53.3 % (36.0-66.0); RED BLOOD COUNT 2.97 10^6/uL (4.00-5.40); WHITE BLOOD COUNT 5.1 10^3/uL (4.0-10.0)
[2021-04-28 06:12] LABS: PLATELET COUNT, AUTOMATED 62 10^3/uL (150-450)
[2021-04-28 06:14] LABS: CALCIUM LEVEL 8.3 MG/DL (8.8-10.2); CREATININE FOR GFR 1.04 MG/DL (0.55-1.30); GLOMERULAR FILTRATION RATE 53.7 (>32); POTASSIUM SERUM 3.7 MEQ/L (3.5-5.1)
[2021-04-28 06:23] LABS: INR 1.35; PROTHROMBIN TIME 17.1 SECONDS (12.7-14.5)
[2021-04-28 07:35] VITALS: BP 122/54
[2021-04-28] MEDS: TIOTROPIUM INHALER/CAPSULE (SPIRIVA) INH SCH (07:52)
[2021-04-28] MEDS: rifAXIMin 550 MG TAB (XIFAXAN) PO SCH ×2 (09:17→21:40)
[2021-04-28] MEDS: PANTOPRAZOLE 40MG VIAL (C9113 PER 1) IV SCH (09:18)
[2021-04-28] MEDS: METOPROLOL TART 12.5 MG PER 1/2 TAB PO SCH ×3 (10:48→21:47)
[2021-04-28] MEDS ORDERED: LORazepam 1 MG TAB PO PRN (12:25)
[2021-04-28] MEDS ORDERED: MORPHINE 10MG/0.5ML ORAL CONCENTRATE SOLUTION U/D SL PRN (12:25)
[2021-04-28] MEDS ORDERED: HYOSCYAMINE SULFATE 0.125 MG SUBL TABLET PO PRN (12:25)
[2021-04-28] MEDS ORDERED: ONDANSETRON 4 MG ORAL DISINTEGRATING TAB PO PRN (12:25)
[2021-04-28] MEDS: FERROUS SULFATE 325MG TAB PO SCH (12:58)
[2021-04-28] MEDS: LACTULOSE 20 GM/30 ML SYRUP UD PO SCH ×2 (16:24→21:41)
[2021-04-28] MEDS: PANTOPRAZOLE 40MG TAB (PROTONIX) PO SCH (21:40)
[2021-04-28 21:45] VITALS: BP 130/48
[2021-04-29] MEDS: SUCRALFATE SUSP 1GM/10ML UD PO SCH ×4 (00:19→18:14)
[2021-04-29] MEDS: LEVOTHYROXINE 100MCG TABLET (0.1MG) PO SCH (05:53)
[2021-04-29] MEDS: TIOTROPIUM INHALER/CAPSULE (SPIRIVA) INH SCH (06:40)
[2021-04-29] MEDS: LACTULOSE 20 GM/30 ML SYRUP UD PO SCH ×3 (08:17→20:47)
[2021-04-29] MEDS: PANTOPRAZOLE 40MG TAB (PROTONIX) PO SCH ×2 (08:17→20:47)
[2021-04-29] MEDS: FERROUS SULFATE 325MG TAB PO SCH (08:17)
[2021-04-29] MEDS: rifAXIMin 550 MG TAB (XIFAXAN) PO SCH ×2 (08:17→20:47)
[2021-04-29] MEDS: METOPROLOL TART 12.5 MG PER 1/2 TAB PO SCH ×2 (08:24→20:50)
[2021-04-29 08:42] VITALS: BP 120/63
[2021-04-29] MEDS ORDERED: CHLORASEPTIC SPRAY MT PRN (12:50)
[2021-04-29 13:00] LABS: FOLATE 4.4 NG/ML (>5.4)
[2021-04-29 20:50] VITALS: O2SAT 97
[2021-04-30] MEDS: SUCRALFATE SUSP 1GM/10ML UD PO SCH ×4 (00:34→18:10)
[2021-04-30] MEDS: LEVOTHYROXINE 100MCG TABLET (0.1MG) PO SCH (05:18)
[2021-04-30] MEDS: TIOTROPIUM INHALER/CAPSULE (SPIRIVA) INH SCH (07:24)
[2021-04-30] MEDS: METOPROLOL TART 12.5 MG PER 1/2 TAB PO SCH ×2 (09:03→21:20)
[2021-04-30] MEDS: rifAXIMin 550 MG TAB (XIFAXAN) PO SCH ×2 (09:03→21:20)
[2021-04-30] MEDS: PANTOPRAZOLE 40MG TAB (PROTONIX) PO SCH ×2 (09:03→21:19)
[2021-04-30] MEDS: LACTULOSE 20 GM/30 ML SYRUP UD PO SCH ×3 (09:04→21:19)
[2021-04-30] MEDS: FERROUS SULFATE 325MG TAB PO SCH (09:04)
[2021-05-01] MEDS: SUCRALFATE SUSP 1GM/10ML UD PO SCH ×4 (00:10→18:17)
[2021-05-01] MEDS: LEVOTHYROXINE 100MCG TABLET (0.1MG) PO SCH (05:27)
[2021-05-01 06:38] LABS: BASO % 0.2 % (0.0-1.0); EOS # 0.2 10^3/uL (0.0-0.5); EOS % 5.4 % (0.0-3.0); HEMATOCRIT 27.3 % (36.0-47.0); HEMOGLOBIN 8.6 g/dl (12.0-15.5); LYMPH % 22.8 % (24.0-44.0); MEAN CORPUSCULAR HEMOGLOBIN 31.9 pg (27.0-33.0); MEAN CORPUSCULAR HGB CONC 31.5 g/dl (32.0-36.5); MEAN CORPUSCULAR VOLUME 101.1 fl (80.0-96.0); MONO # 0.7 10^3/uL (0.0-0.8); MONO % 15.8 % (2.0-8.0); NEUTROPHILS # 2.5 10^3/uL (1.5-8.5); NEUTROPHILS % 55.3 % (36.0-66.0); WHITE BLOOD COUNT 4.4 10^3/uL (4.0-10.0)
[2021-05-01 06:39] LABS: PLATELET COUNT, AUTOMATED 50 10^3/uL (150-450)
[2021-05-01 06:46] LABS: INR 1.41; PROTHROMBIN TIME 17.7 SECONDS (12.7-14.5)
[2021-05-01 06:56] LABS: CALCIUM LEVEL 7.6 MG/DL (8.8-10.2); CREATININE FOR GFR 0.99 MG/DL (0.55-1.30); GLOMERULAR FILTRATION RATE 56.9 (>32); POTASSIUM SERUM 3.8 MEQ/L (3.5-5.1)
[2021-05-01] MEDS: TIOTROPIUM INHALER/CAPSULE (SPIRIVA) INH SCH (07:14)
[2021-05-01] MEDS: PANTOPRAZOLE 40MG TAB (PROTONIX) PO SCH ×2 (09:15→20:24)
[2021-05-01] MEDS: LACTULOSE 20 GM/30 ML SYRUP UD PO SCH ×3 (09:15→20:23)
[2021-05-01] MEDS: rifAXIMin 550 MG TAB (XIFAXAN) PO SCH ×2 (09:16→20:24)
[2021-05-01] MEDS: METOPROLOL TART 12.5 MG PER 1/2 TAB PO SCH ×2 (09:16→20:25)
[2021-05-01] MEDS: FERROUS SULFATE 325MG TAB PO SCH (09:16)
[2021-05-01] MEDS ORDERED: MAALOX 30 ML SUSP *UDC PO PRN (10:40)
[2021-05-01] MEDS: FUROSEMIDE 40 MG TAB PO SCH (10:50)
[2021-05-01] MEDS ORDERED: BENZONATATE 100MG CAPSULE PO PRN (20:20)
[2021-05-02] MEDS: SUCRALFATE SUSP 1GM/10ML UD PO SCH ×4 (00:50→17:25)
[2021-05-02] MEDS: LEVOTHYROXINE 100MCG TABLET (0.1MG) PO SCH (05:03)
[2021-05-02] MEDS: TIOTROPIUM INHALER/CAPSULE (SPIRIVA) INH SCH (07:26)
[2021-05-02] MEDS: LACTULOSE 20 GM/30 ML SYRUP UD PO SCH ×3 (08:30→19:53)
[2021-05-02] MEDS: FUROSEMIDE 40 MG TAB PO SCH (08:30)
[2021-05-02] MEDS: FERROUS SULFATE 325MG TAB PO SCH (08:30)
[2021-05-02] MEDS: PANTOPRAZOLE 40MG TAB (PROTONIX) PO SCH ×2 (08:30→19:53)
[2021-05-02] MEDS: rifAXIMin 550 MG TAB (XIFAXAN) PO SCH ×2 (08:30→19:53)
[2021-05-02] MEDS: METOPROLOL TART 12.5 MG PER 1/2 TAB PO SCH ×2 (08:30→20:05)
[2021-05-02 14:00] VITALS: BP 118/58
[2021-05-03] MEDS: SUCRALFATE SUSP 1GM/10ML UD PO SCH ×4 (00:44→17:25)
[2021-05-03 04:52] VITALS: BP 108/63
[2021-05-03] MEDS: LEVOTHYROXINE 100MCG TABLET (0.1MG) PO SCH (05:50)
[2021-05-03] MEDS: TIOTROPIUM INHALER/CAPSULE (SPIRIVA) INH SCH (07:23)
[2021-05-03] MEDS: METOPROLOL TART 12.5 MG PER 1/2 TAB PO SCH ×2 (09:00→20:10)
[2021-05-03] MEDS: PANTOPRAZOLE 40MG TAB (PROTONIX) PO SCH ×2 (09:53→20:05)
[2021-05-03] MEDS: LACTULOSE 20 GM/30 ML SYRUP UD PO SCH ×3 (09:53→20:04)
[2021-05-03] MEDS: rifAXIMin 550 MG TAB (XIFAXAN) PO SCH ×2 (09:53→20:04)
[2021-05-03 09:54] VITALS: BP 100/52
[2021-05-03] MEDS: FUROSEMIDE 40 MG TAB PO SCH (09:54)
[2021-05-03] MEDS: FERROUS SULFATE 325MG TAB PO SCH (09:54)
[2021-05-04] MEDS: SUCRALFATE SUSP 1GM/10ML UD PO SCH ×5 (00:10→23:55)
[2021-05-04] MEDS ORDERED: SODIUM CHLORIDE 0.9% 1000ML IV ONE (05:45)
[2021-05-04] MEDS: LEVOTHYROXINE 100MCG TABLET (0.1MG) PO SCH (05:48)
[2021-05-04 06:00] VITALS: BP 94/44
[2021-05-04] MEDS: TIOTROPIUM INHALER/CAPSULE (SPIRIVA) INH SCH (07:45)
[2021-05-04 07:46] VITALS: BP 105/52
[2021-05-04] MEDS: METOPROLOL TART 12.5 MG PER 1/2 TAB PO SCH ×2 (08:54→20:07)
[2021-05-04] MEDS: FERROUS SULFATE 325MG TAB PO SCH (08:55)
[2021-05-04] MEDS: FUROSEMIDE 40 MG TAB PO SCH (08:55)
[2021-05-04] MEDS: rifAXIMin 550 MG TAB (XIFAXAN) PO SCH ×2 (08:55→20:07)
[2021-05-04] MEDS: PANTOPRAZOLE 40MG TAB (PROTONIX) PO SCH ×2 (08:55→20:07)
[2021-05-04] MEDS: LACTULOSE 20 GM/30 ML SYRUP UD PO SCH ×3 (08:56→20:07)
[2021-05-04 20:07] VITALS: BP 105/50
[2021-05-05 05:46] VITALS: BP 104/66
[2021-05-05] MEDS: LEVOTHYROXINE 100MCG TABLET (0.1MG) PO SCH (05:55)
[2021-05-05] MEDS: SUCRALFATE SUSP 1GM/10ML UD PO SCH ×2 (05:55→12:23)
[2021-05-05] MEDS: TIOTROPIUM INHALER/CAPSULE (SPIRIVA) INH SCH (07:17)
[2021-05-05] MEDS: METOPROLOL TART 12.5 MG PER 1/2 TAB PO SCH (09:00)
[2021-05-05] MEDS: LACTULOSE 20 GM/30 ML SYRUP UD PO SCH ×2 (09:19→15:18)
[2021-05-05] MEDS: FERROUS SULFATE 325MG TAB PO SCH (09:20)
[2021-05-05] MEDS: PANTOPRAZOLE 40MG TAB (PROTONIX) PO SCH (09:20)
[2021-05-05] MEDS: FUROSEMIDE 40 MG TAB PO SCH (09:20)
[2021-05-05] MEDS: rifAXIMin 550 MG TAB (XIFAXAN) PO SCH (09:20)
[2021-05-05 13:37] LABS: HEMATOCRIT 26.7 % (36.0-47.0); HEMOGLOBIN 8.6 g/dl (12.0-15.5); MEAN CORPUSCULAR HEMOGLOBIN 32.2 pg (27.0-33.0); MEAN CORPUSCULAR HGB CONC 32.2 g/dl (32.0-36.5); RED BLOOD COUNT 2.67 10^6/uL (4.00-5.40)
[2021-05-05 13:38] LABS: PLATELET COUNT, AUTOMATED 53 10^3/uL (150-450)
[2021-05-05 13:48] LABS: INR 1.29; PROTHROMBIN TIME 16.5 SECONDS (12.7-14.5)
[2021-05-05 13:49] LABS: PARTIAL THROMBOPLASTIN TIME 41.5 SECONDS (25.9-37.0)
[2021-05-05 14:10] LABS: ALBUMIN 1.9 GM/DL (3.2-5.2); BILIRUBIN,TOTAL 1.5 MG/DL (0.2-1.0); CALCIUM LEVEL 8.2 MG/DL (8.8-10.2); CREATININE FOR GFR 1.03 MG/DL (0.55-1.30); GLOMERULAR FILTRATION RATE 54.3 (>32); POTASSIUM SERUM 3.7 MEQ/L (3.5-5.1); TOTAL PROTEIN 6.3 GM/DL (6.4-8.2)
== END 2021-05-05 16:55 | disposition home or self-care (01) | DRG 378 ==
LOC: EDBD 14:18 → M ED 14:18 → M ED INP 17:54 → M MSPAV 21:15
PROVIDERS: ADMIT Internal Medicine Nephrology; ATTEND Family Medicine
PROC: 30233N1 Transfusion of Nonautologous Red Blood Cells into Peripheral Vein, Percutaneous Approach (ICD-10-PCS; principal; 2021-04-27)
DX: K31.811 Angiodysplasia of stomach and duodenum with bleeding (principal); D68.4 Acquired coagulation factor deficiency; K76.6 Portal hypertension; I50.32 Chronic diastolic (congestive) heart failure; D62 Acute posthemorrhagic anemia; Z68.41 Body mass index [BMI] 40.0-44.9, adult; K72.90 Hepatic failure, unspecified without coma; K74.60 Unspecified cirrhosis of liver; D69.6 Thrombocytopenia, unspecified; R16.1 Splenomegaly, not elsewhere classified; J44.9 Chronic obstructive pulmonary disease, unspecified; G47.33 Obstructive sleep apnea (adult) (pediatric); E66.9 Obesity, unspecified; E03.9 Hypothyroidism, unspecified; I11.0 Hypertensive heart disease with heart failure; Z66 Do not resuscitate; E11.9 Type 2 diabetes mellitus without complications; I27.20 Pulmonary hypertension, unspecified; I35.0 Nonrheumatic aortic (valve) stenosis; I35.1 Nonrheumatic aortic (valve) insufficiency; Z79.899 Other long term (current) drug therapy; Z88.8 Allergy status to other drugs, medicaments and biological substances; Z91.040 Latex allergy status; Z96.652 Presence of left artificial knee joint; Z98.41 Cataract extraction status, right eye; Z98.42 Cataract extraction status, left eye; Z90.79 Acquired absence of other genital organ(s); Z90.49 Acquired absence of other specified parts of digestive tract; Z87.891 Personal history of nicotine dependence; Z20.822 Contact with and (suspected) exposure to COVID-19

== ENCOUNTER 2021-05-16 16:59 | Inpatient (IN) | payer MEDICARE ==
[~2021-05-16] VITALS: Ht 157.5 cm; Wt 101.7 kg
[~2021-05-16 16:59] MED LIST changes: -PANTOPRAZOLE 40MG VIAL (C9113 PER 1) IV SCH
[2021-05-16] MEDS ORDERED: PANTOPRAZOLE 40MG VIAL (C9113 PER 1) IV ONE (17:25)
[2021-05-16 17:46] LABS: BASO % 0.4 % (0.0-1.0); EOS # 0.2 10^3/uL (0.0-0.5); HEMATOCRIT 22.6 % (36.0-47.0); HEMOGLOBIN 7.1 g/dl (12.0-15.5); LYMPH # 1.1 10^3/uL (1.5-5.0); LYMPH % 23.5 % (24.0-44.0); MEAN CORPUSCULAR HEMOGLOBIN 32.4 pg (27.0-33.0); MEAN CORPUSCULAR HGB CONC 31.4 g/dl (32.0-36.5); MEAN CORPUSCULAR VOLUME 103.2 fl (80.0-96.0); MONO # 0.7 10^3/uL (0.0-0.8); MONO % 15.4 % (2.0-8.0); NEUTROPHILS # 2.5 10^3/uL (1.5-8.5); NEUTROPHILS % 55.3 % (36.0-66.0); RED BLOOD COUNT 2.19 10^6/uL (4.00-5.40); WHITE BLOOD COUNT 4.6 10^3/uL (4.0-10.0)
[2021-05-16 18:02] LABS: PLATELET COUNT, AUTOMATED 77 10^3/uL (150-450)
[2021-05-16] MEDS ORDERED: LACTULOSE 20 GM/30 ML SYRUP UD PO ONE (18:25)
[2021-05-16 18:30] LABS: BILIRUBIN,DIRECT 0.4 MG/DL (0.0-0.2); BILIRUBIN,TOTAL 1.4 MG/DL (0.2-1.0); CALCIUM LEVEL 8.1 MG/DL (8.8-10.2); CREATININE FOR GFR 1.22 MG/DL (0.55-1.30); GLOMERULAR FILTRATION RATE 44.7 (>32); POTASSIUM SERUM 4.7 MEQ/L (3.5-5.1); TOTAL PROTEIN 6.2 GM/DL (6.4-8.2)
[2021-05-16] MEDS ORDERED: FURO20TA2 PO (19:34)
[2021-05-16] MEDS ORDERED: HOME MED LIST COMPLETE! XX SCH (19:35)
[2021-05-16 19:40] VITALS: BP 110/73
[2021-05-16 20:05] VITALS: BP 115/53
[2021-05-16 20:15] LABS: RSV AMPLIFICATION NEGATIVE (NEGATIVE)
[2021-05-16 20:30] VITALS: BP 118/74
[2021-05-16] MEDS ORDERED: AMITRIPTYLINE 25MG TABLET PO SCH (21:00)
[2021-05-16] MEDS ORDERED: ATORVASTATIN 10 MG TAB PO SCH (21:00)
[2021-05-16] MEDS ORDERED: ALBUTEROL SULFATE 2.5 MG/0.5 ML INH NEB SOLN INH PRN (21:10)
[2021-05-16 21:30] VITALS: BP 116/56
[2021-05-16 22:05] VITALS: BP 121/82
[2021-05-17] VITALS (15 sets, daily range): BP systolic 98–136; BP diastolic 51–76
[2021-05-17] MEDS ORDERED: ALBUTEROL SULFATE 2.5 MG/0.5 ML INH NEB SOLN NEB ONE
[2021-05-17] MEDS ORDERED: FUROSEMIDE 40MG/4ML VIAL (J1940) IV ONE
[2021-05-17] MEDS ORDERED: ACETAMINOPHEN *IV* 1,000 MG in IV 1 EA IV ONE (01:00)
[2021-05-17] MEDS ORDERED: LEVOTHYROXINE 100MCG TABLET (0.1MG) PO SCH (06:00)
[2021-05-17] MEDS: SUCRALFATE 1 GM TAB PO SCH ×2 (07:11→09:47)
[2021-05-17] MEDS: rifAXIMin 550 MG TAB (XIFAXAN) PO SCH ×2 (07:12→09:48)
[2021-05-17 07:47] LABS: BASO % 0.3 % (0.0-1.0); EOS # 0.1 10^3/uL (0.0-0.5); EOS % 1.6 % (0.0-3.0); HEMATOCRIT 23.2 % (36.0-47.0); HEMOGLOBIN 7.3 g/dl (12.0-15.5); LYMPH % 13.6 % (24.0-44.0); MEAN CORPUSCULAR HEMOGLOBIN 31.5 pg (27.0-33.0); MEAN CORPUSCULAR HGB CONC 31.5 g/dl (32.0-36.5); NEUTROPHILS # 5.3 10^3/uL (1.5-8.5); NEUTROPHILS % 71.1 % (36.0-66.0); PLATELET COUNT, AUTOMATED 68 10^3/uL (150-450); RED BLOOD COUNT 2.32 10^6/uL (4.00-5.40); WHITE BLOOD COUNT 7.4 10^3/uL (4.0-10.0)
[2021-05-17] MEDS ORDERED: METOPROLOL TART 12.5 MG PER 1/2 TAB PO SCH (09:00)
[2021-05-17] MEDS ORDERED: PANTOPRAZOLE 40MG VIAL (C9113 PER 1) IV SCH (09:00)
[2021-05-17] MEDS ORDERED: ACETAMINOPHEN TAB 650MG DOSE (2X325MG) PO ONE (09:15)
[2021-05-17] MEDS ORDERED: ACETAMINOPHEN TAB 650MG DOSE (2X325MG) PO PRN (10:40)
== END 2021-05-17 22:04 | disposition left against medical advice (07) | DRG 812 ==
LOC: EDBD 16:59 → M ED 16:59 → M ED INP 21:07 → ENRESERV 23:23 → CANRESERV 23:23 → ENRESERV 05-17 00:50 → M PCU 05-17 03:40
PROVIDERS: ADMIT Internal Medicine; ATTEND Internal Medicine
PROC: 30233N1 Transfusion of Nonautologous Red Blood Cells into Peripheral Vein, Percutaneous Approach (ICD-10-PCS; principal; 2021-05-16)
DX: D50.0 Iron deficiency anemia secondary to blood loss (chronic) (principal); I50.32 Chronic diastolic (congestive) heart failure; R16.1 Splenomegaly, not elsewhere classified; K74.60 Unspecified cirrhosis of liver; K72.90 Hepatic failure, unspecified without coma; E78.00 Pure hypercholesterolemia, unspecified; E03.9 Hypothyroidism, unspecified; J45.909 Unspecified asthma, uncomplicated; Z66 Do not resuscitate; D69.6 Thrombocytopenia, unspecified; I11.0 Hypertensive heart disease with heart failure; I27.20 Pulmonary hypertension, unspecified; J44.9 Chronic obstructive pulmonary disease, unspecified; G47.33 Obstructive sleep apnea (adult) (pediatric); E11.9 Type 2 diabetes mellitus without complications; K31.819 Angiodysplasia of stomach and duodenum without bleeding; E66.9 Obesity, unspecified; R50.84 Febrile nonhemolytic transfusion reaction; F39 Unspecified mood [affective] disorder; Z90.49 Acquired absence of other specified parts of digestive tract; Z79.899 Other long term (current) drug therapy

== ENCOUNTER → 2021-05-16 | Outpatient (REF) | payer MEDICARE ==
[~2021-05-16] MED LIST changes: +PANTOPRAZOLE 40MG VIAL (C9113 PER 1) IV SCH; +RA M500C PO
[2021-05-16 15:22] LABS: BASO % 0.5 % (0.0-1.0); EOS # 0.2 10^3/uL (0.0-0.5); EOS % 4.9 % (0.0-3.0); HEMATOCRIT 23.1 % (36.0-47.0); LYMPH # 0.8 10^3/uL (1.5-5.0); LYMPH % 22.3 % (24.0-44.0); MEAN CORPUSCULAR HEMOGLOBIN 31.9 pg (27.0-33.0); MEAN CORPUSCULAR HGB CONC 29.9 g/dl (32.0-36.5); MEAN CORPUSCULAR VOLUME 106.9 fl (80.0-96.0); MONO # 0.4 10^3/uL (0.0-0.8); MONO % 10.7 % (2.0-8.0); NEUTROPHILS # 2.2 10^3/uL (1.5-8.5); NEUTROPHILS % 61.3 % (36.0-66.0); RED BLOOD COUNT 2.16 10^6/uL (4.00-5.40); WHITE BLOOD COUNT 3.6 10^3/uL (4.0-10.0)
[2021-05-16 15:23] LABS: HEMOGLOBIN 6.9 g/dl (12.0-15.5); PLATELET COUNT, AUTOMATED 75 10^3/uL (150-450)
== END ==
LOC: M SHH 15:07
PROVIDERS: ATTEND Internal Medicine
DX: I85.01 Esophageal varices with bleeding (principal)